=== PATIENT | female | born 1970 | race Caucasian/White ===

== ENCOUNTER 2016-09-15 14:10 | Emergency (ER) | payer MEDICAID ==
[~2016-09-15] VITALS: Ht 172.7 cm; Wt 49.9 kg
[~2016-09-15 14:10] MED LIST: ALBUTEROL2.5 MG/NEB INH; AMOXICOT500 MG PO; AMOXIL500 MG PO; ANTIBIOTIC OR; ANUSOL-HC25 M1 TP; APAP/BUTALBITAL1 TA1; APAP/BUTALBITAL1 TA1 PO; AVELOX400 MG PO; AVPAK AZITHROM250 MG PO; AZITHROMYCIN250 MG PO; BACLOFEN 10MG T10 MG PO; BACTRIM DS 8001 TAB PO; BENTYL GENERIC10 MG PO; BENTYL10 M1 PO; BENTYL10 MG PO; BENTYL20 MG PO; BUPROPION HCL150 M2 PO; CEFUROXIME AXE250 MG PO; CIMZIA200 MG/ML SC; CIPRO 250MG TA250 MG; CIPRO 500MG TA500 MG PO; DARVOCET-N 1001 EACH PO; FIORICET 325 MG1 TAB; FIORICET 325 MG1 TAB PO; FIORINAL #3 CA1 EACH PO; FLAGYL 500MG.500 MG PO; FLAGYL250 MG; FLAGYL250 MG PO; FLAGYL500 MG PO; FLEXERIL10 M1 PO; FLEXERIL10 MG PO; FLOMAX 0.4MG C0.4 MG PO; HUMIRA40 MG/0.1 SC; HYDROCODONE-APA1 TA1 PO; HYDROCODONE/ACE1 TA5 PO; HYDROCODONE1 TABLET PO; KEFLEX 500MG.500 MG PO; LEVAQUIN 750 M750 MG PO; LEVOFLOXACIN 7750 M1 PO; LOPERAMIDE2 M2 PO; LORTAB 5/500 501 TAB PO; MACROBID 100MG100 MG PO; MEDROL 4MG. DOSE4 MG PO; MONODOX100 MG PO; NAPROSYN500 M1 PO; NAPROXEN SODIU500 MG PO; NARATRIPTAN2.5 MG PO; NICOTINE T14 MG/24 H TD; NICOTINE21 MG/24 H TD; NIX CREAM R60 ML/BOT EX; NOMEDS *; NOMEDS XX; PERCOCET 5/3251 EACH PO; PERMETHRIN60 ML TP; PHENERGAN 25MG.25 M1 PO; PHENERGAN 25MG.25 MG PR; PHENERGAN25 M3 PO; PREDNISONE 20MG20 MG PO; PREDNISONE 5MG.5 MG; PREDNISONE20 MG PO; PREDNISONE5 MG; PROMETHAZINE D118 ML PO; PROMETHAZINE HC25 M1 PO; PROVENTIL0.09 MG/AC IH; ROBAXIN-750750 MG PO; ROBITUSSIN DM120 ML PO; SEPTRA DS 800 M1 TAB PO; TESSALON PERLE100 M1 PO; TESSALON PERLE100 MG PO; TIZANIDINE HCL 44 MG; TIZANIDINE HCL 44 MG NG; TRAMADOL 50MG T50 MG PO; TYLENOL ES500 M1 PO; TYLENOL W/CODEI1 TAB PO; ULTRAM 50 MG TA50 MG PO; ULTRAM50 MG PO; VIBRAMYCIN 100100 MG PO; VICODIN 5/500 T1 TAB PO; ZANAFLEX4 MG NG; ZANTAC 150MG T150 MG PO; ZITHROMAX Z PA250 MG PO; ZITHROMAX Z-PA250 M2 PO; ZOFRAN 8MG TABLE8 MG PO; ZOFRAN ODT4 MG PO; ZOFRAN ODT8 MG; ZOFRAN4 MG PO; ZOLOFT100 MG PO; [UNRECOGNIZED DRUG - REMARK]
[2016-09-15] MEDS ORDERED: DIAZEPAM2 MG PO (14:28)
[2016-09-15] MEDS ORDERED: METHOCARBAMOL500 MG PO (14:29)
--- NOTE | 2016-09-15 14:31 | Emergency Room Report ---
History of Present Illness Time Seen by MD Smith Presenting Problem in Triage Pt arrived:Walked Presenting Problem:hx of scoliosis, taking PT and cx for pain clinic. 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 N Clinical Suspician of Infection? N Mental Status: 1 - Regular (Normal Baseline) Sepsis Risk:Low Sepsis Risk Have you (or family members/close friends) recently traveled outside the [place]? N If Yes, where/when: Have you had exposure to infectious disease within the past month? N TB? Other? Specify: Source patient, RN notes reviewed Exam Limitations no limitations Comment Pt has a long history of Thoracic Scoliosis but has never had surgery. She has an appt for PT starting September 19 and the only thing she takes now is Robaxin and Valium. She has tried some antiinflammatories but they do not seem to help much. She has no arm pain but pain in her spine from her neck to her lumbar area Cardiac Chest Pain Chest pain indicative of cardiac No ALLERGIES Coded Allergies: naratriptan (SEVERE CHEST PAIN/TIGHTNESS (ALMOST HAD A HEART ATTACK) 08/09/15) Home Medications Active Scripts Albuterol (Proventil Inhaler) 1 PUFF IH Q6HP PRN SHORTNESS OF AIR #1 INH Prov: 10/10/14 Reported Medications DICYCLOMINE HCL (Bentyl) 10 MG PO DAILY Diazepam (Diazepam 2MG) 2 MG PO Q8H METHOCARBAMOL (Methocarbamol) 500 MG PO BID History Medical History General CAD? No Angina: No [place]: No Hypertension? No Hyperlipidemia? No CHF? No DVT? No PE? No COPD? Yes Asthma? No Anemia? No GERD? No Gastric ulcers? No GI Bleed? No Hernia? Yes Thyroid Problems? No Hypothyroidism? No CVA? No Seizures? No Diabetes? No Insulin Dependent: No Insulin Pump: No Home FSBS? No Renal Insuffiency? No End Stage Renal Disease? No UTI? Yes Stones? No BPH? No GB Disease: No Nephritic Syndrome? No Asplenia? No Hepatitis? No Sickle Cell Disease? No Arthritis? No Migraines? Yes Cataracts? No Glaucoma? No MRSA? Yes HIV? No TB? No Anxiety? No Depression? Yes Cancer? No More? Yes Additional hx: CROHNS Immunization Hx Ped.Immunizations UTD Yes DT/Tetanus > 10 Years Ago Flu 5534-0218 Flu Season Pneumonia 02/23/14 Surgical Hx Previous Surgery?Y HYSTERECTOMY X 2 EXP LAP X 2 COLON RESECTION UMBILICAL HERNIA REPAIR EPIGASTRIC HERNIA REPAIR X 2. 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 Hx LMP menopause Family History Family Hx Diabetes No CAD No Hypertension No Hyperlipidemia No Cancer Yes TB No Social History Smoking Hx Smoker: Current Every Day Smoker Tobacco: Yes Type Cigarettes Packs/day < 1 Pack Alcohol Alcohol: No Review of Systems All Other Systems Reviewed and Negative Constitutional see HPI Musculoskeletal see HPI Physical Exam Vital Signs Vital Signs Date Time Temp Pulse Resp B/P Pulse O2 O2 Flow FiO2 Ox Delivery Rate 09/15 1420 99.0 118 18 118/83 96 General Appearance normal appearance, WD/WN, no apparent distress Neck supple, She has a marked kyphosis in the thorax and that is where her scoliosis is too Respiratory Status No: respiratory distress. Lung Sounds bilateral: normal breath sounds. Cardiovascular normal exam, regular rate/rhythm Neurologic alert, information assoc II-XII nml as tested, no motor/sensory deficits Medical Decision Making LABS/Meds/Orders Pt receiving controlled substance in ED? No Departure Departure Time of Disposition 1452 Disposition DC Home or Self Care(routine) Clinical Impression Primary Impression: Thoracic scoliosis Qualifiers: Scoliosis type: unspecified scoliosis Qualified Code: M41.9 - Scoliosis, unspecified Secondary Impressions: Cervicalgia Lumbar sprain Qualifiers: Encounter type: initial encounter Qualified Code: S33.5XXA - Sprain of ligaments of lumbar spine, initial encounter Condition STABLE Additional Instructions Advised to use Ice and heat and continue with whichever helps the most. Followup for PT and with Pain clinic as scheduled Discharge Counseling Counseled pt/family regarding diagnosis, medications/RX, home care, follow up needs Prescriptions Current Visit Scripts DICLOFENAC SODIUM (Diclofenac 50MG) 50 MG PO BID #60 TAB ED Critical Care Critical Care No If Critical Care minutes are documented, the time involved in the performance of seperately reportable procedures was not counted toward critical care time documented. I directly delivered medical care to this critically ill and/or injured patient. Timely evaluation and treatment was necessary to address the significant organ system(s) dysfunction present in this patient. at [id number]
--- NOTE | 2016-09-15 14:31 | Emergency Room Report ---
History of Present Illness Time Seen by MD Smith Presenting Problem in Triage Pt arrived:Walked Presenting Problem:hx of scoliosis, taking PT and cx for pain clinic. 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 N Clinical Suspician of Infection? N Mental Status: 1 - Regular (Normal Baseline) Sepsis Risk:Low Sepsis Risk Have you (or family members/close friends) recently traveled outside the [place]? N If Yes, where/when: Have you had exposure to infectious disease within the past month? N TB? Other? Specify: Source patient, RN notes reviewed Exam Limitations no limitations Comment Pt has a long history of Thoracic Scoliosis but has never had surgery. She has an appt for PT starting September 19 and the only thing she takes now is Robaxin and Valium. She has tried some antiinflammatories but they do not seem to help much. She has no arm pain but pain in her spine from her neck to her lumbar area Cardiac Chest Pain Chest pain indicative of cardiac No ALLERGIES Coded Allergies: naratriptan (SEVERE CHEST PAIN/TIGHTNESS (ALMOST HAD A HEART ATTACK) 08/09/15) Home Medications Active Scripts Albuterol (Proventil Inhaler) 1 PUFF IH Q6HP PRN SHORTNESS OF AIR #1 INH Prov: 10/10/14 Reported Medications DICYCLOMINE HCL (Bentyl) 10 MG PO DAILY Diazepam (Diazepam 2MG) 2 MG PO Q8H METHOCARBAMOL (Methocarbamol) 500 MG PO BID History Medical History General CAD? No Angina: No [place]: No Hypertension? No Hyperlipidemia? No CHF? No DVT? No PE? No COPD? Yes Asthma? No Anemia? No GERD? No Gastric ulcers? No GI Bleed? No Hernia? Yes Thyroid Problems? No Hypothyroidism? No CVA? No Seizures? No Diabetes? No Insulin Dependent: No Insulin Pump: No Home FSBS? No Renal Insuffiency? No End Stage Renal Disease? No UTI? Yes Stones? No BPH? No GB Disease: No Nephritic Syndrome? No Asplenia? No Hepatitis? No Sickle Cell Disease? No Arthritis? No Migraines? Yes Cataracts? No Glaucoma? No MRSA? Yes HIV? No TB? No Anxiety? No Depression? Yes Cancer? No More? Yes Additional hx: CROHNS Immunization Hx Ped.Immunizations UTD Yes DT/Tetanus > 10 Years Ago Flu [id number] Flu Season Pneumonia 02/23/14 Surgical Hx Previous Surgery?Y HYSTERECTOMY X 2 EXP LAP X 2 COLON RESECTION UMBILICAL HERNIA REPAIR EPIGASTRIC HERNIA REPAIR X 2. 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 Hx LMP menopause Family History Family Hx Diabetes No CAD No Hypertension No Hyperlipidemia No Cancer Yes TB No Social History Smoking Hx Smoker: Current Every Day Smoker Tobacco: Yes Type Cigarettes Packs/day < 1 Pack Alcohol Alcohol: No Review of Systems All Other Systems Reviewed and Negative Constitutional see HPI Musculoskeletal see HPI Physical Exam Vital Signs Vital Signs Date Time Temp Pulse Resp B/P Pulse O2 O2 Flow FiO2 Ox Delivery Rate 09/15 1420 99.0 118 18 118/83 96 General Appearance normal appearance, WD/WN, no apparent distress Neck supple, She has a marked kyphosis in the thorax and that is where her scoliosis is too Respiratory Status No: respiratory distress. Lung Sounds bilateral: normal breath sounds. 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 No Departure Departure Time of Disposition 1452 Disposition DC Home or Self Care(routine) Clinical Impression Primary Impression: Thoracic scoliosis Qualifiers: Scoliosis type: unspecified scoliosis Qualified Code: M41.9 - Scoliosis, unspecified Secondary Impressions: Cervicalgia Lumbar sprain Qualifiers: Encounter type: initial encounter Qualified Code: S33.5XXA - Sprain of ligaments of lumbar spine, initial encounter Condition STABLE Additional Instructions Advised to use Ice and heat and continue with whichever helps the most. Followup for PT and with Pain clinic as scheduled Discharge Counseling Counseled pt/family regarding diagnosis, medications/RX, home care, follow up needs Prescriptions Current Visit Scripts DICLOFENAC SODIUM (Diclofenac 50MG) 50 MG PO BID #60 TAB ED Critical Care Critical Care No If Critical Care minutes are documented, the time involved in the performance of seperately reportable procedures was not counted toward critical care time documented. I directly delivered medical care to this critically ill and/or injured patient. Timely evaluation and treatment was necessary to address the significant organ system(s) dysfunction present in this patient. at [id number]
[2016-09-15] MEDS ORDERED: DICLOFENAC 50MG50 MG PO (14:54)
--- OUTSIDE RECORDS SUMMARY | 2016-09-15 15:10 | External Medical Summary Rpt ---
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 Person Name Role Phone ADERS, ADERS Unavailable Unavailable ALFARIS MOH, ALFARIS Unavailable Unavailable MOH ALFARIS MOH, ALFARIS Unavailable Unavailable Falguni GROSSMAN, Unavailable Unavailable Falguni [facility] Unavailable Unavailable PRACTICE, [facility] ARNOLD LEE ANN, ARNOLD Unavailable Unavailable LEE ANN ARNOLD LEE ANN, ARNOLD Unavailable Unavailable LEE ANN MAIRA FRANKLIN W, Unavailable Unavailable RIGOBERTO, MAIRA W ANDERS SU Unavailable Unavailable BRO DIALLO TER, DIALLO Unavailable Unavailable TER BESHAQ FLORES BESHAQ Unavailable Unavailable SANDRA SUSHILA L, SUSHILA L Unavailable Unavailable SUSHILA L, SUSHILA L Unavailable Unavailable BESSON REJI, BESSON Unavailable Unavailable REJI BESSON REJI, BESSON Unavailable Unavailable REJI HANSEN ALL, HANSEN ALL Unavailable Unavailable YARA ANT, YARA ANT Unavailable Unavailable YARA CALVIN, Unavailable Unavailable YARA CALVIN BOTTIGGI ANT, Unavailable Unavailable BOTTIGGI ANT GARFIELD III, GARFIELD Unavailable Unavailable III BRANDSER, BRANDSER Unavailable Unavailable DODSONSARAH Owen A, Unavailable Unavailable DODSONSARAH Owen [facility] Unavailable Unavailable SERVICE, [facility] Unavailable Unavailable SERVICE, [facility] JUDAH SHELTON BUCK, Unavailable Unavailable JUDAH MIGUEL, Unavailable Unavailable MYRIAM SPRAGUE, Unavailable Unavailable JIAN SPRAGUE, Unavailable Unavailable JIAN CASH, MARKEL Unavailable Unavailable SARAH VELÁZQUEZ, Unavailable Unavailable SARAH WILCOX DEREK J, Unavailable Unavailable GLO DELCID [facility] Unavailable [facility]available [facility]available [facility] Unavailable Unavailable PHYSICIANS, [facility] DIEGO CORTEZ Unavailable Unavailable TERESA ROM, Unavailable Unavailable TERESA ROM TERESA ROM, Unavailable Unavailable TERESA ROM CASEY MOORE, Unavailable Unavailable CASEY MOORE PA-C Unavailable Unavailable SHAUN DUVAL PA-C MUKUND BERONICA KERLINE, STEPHEN Unavailable Unavailable ALLISON KERLINE SALAZAR NEAL, SALAZAR NEAL Unavailable Unavailable DONOVITZ JAM, Unavailable Unavailable DONOVITZ JAM DONOVITZ JAM, Unavailable Unavailable DONOVITZ JAM [facility] [place]available [place] [facility] [place] FALLUVALERIE MULLER M, Unavailable Unavailable AMELIE NEZAKvng M FAVIER, FAVIER Unavailable Unavailable FERTIKH, FERTIKH Unavailable Unavailable OAKLEYJUDAH VINCENT P, Unavailable Unavailable OAKLEY, JUDAH P JR STANFORD MULTANI, Unavailable Unavailable JR STANF[facility] MULTANI YEIMI ISAAC, YEIMI Unavailable Unavailable ISAAC YEIMI ISAAC, YEIMI Unavailable Unavailable ISAAC SARAH ESCUDERO S, Unavailable Unavailable SARAH ESCUDERO JOHN W, Unavailable Unavailable KP [facility] Unavailable Unavailable LEON ISAAC, LEON ISAAC Unavailable Unavailable LEON ISAAC, LEON ISAAC Unavailable Unavailable DORMAN CELESTINE, DORMAN CELESTINE Unavailable Unavailable CESAR, LUIS G, Unavailable Unavailable CESAR, LUIS G [facility] Unavailable Unavailable CENTER, [facility] Unavailable Unavailable CENTER, [facility] Unavailable Unavailable INC, [facility]available Unavailable Hospital, [facility] Unavailable Unavailable HOSPITAL P, [facility] P HEEB, HEEB Unavailable Unavailable GARCIA RA, GARCIA RA Unavailable Unavailable GARCIA RA, GARCIA RA Unavailable Unavailable [facility], Unavailable Unavailable [facility], Unavailable Unavailable [facility] YOUNGBLOOD MARY, YOUNGBLOOD MARY Unavailable Unavailable KIT IMT, KIT Unavailable Unavailable IMT [facility] Unavailable Unavailable IM[facility]ING [facility], [facility] KLEIMEYER, KLEIMEYER Unavailable Unavailable KLEIMEYER KERLINE, Unavailable Unavailable KLEIMEYER KERLINE KONDURI, KONDURI Unavailable Unavailable TYRELL, TYRELL Unavailable Unavailable FAN-APOLINAR REJI, Unavailable Unavailable FAN-APOLINAR REJI [facility] TASHIA JR DWI, TASHIA Unavailable Unavailable JR DWI SIA, SIA Unavailable Unavailable BORIS KETAN, BORIS Unavailable Unavailable KETAN [facility] Unavailable Unavailable SERVICES, [facility] UZMA HERNANDEZ, UZMA Unavailable Unavailable MARY MCKEMIE JR JUAN ANTONIO, Unavailable Unavailable MCKEMIE JR JUAN ANTONIO MCKEMIE JR JUAN ANTONIO, Unavailable Unavailable MCKEMIE JR JUAN ANTONIO MEDEYINLO, MEDEYINLO Unavailable Unavailable HARLEENSHELDON CARNES P, Unavailable Unavailable HARLEEN, SHELDON P REY GAN, Unavailable Unavailable REY GAN MORGAN Unavailable Unavailable NIRUJOGI, NIRUJOGI Unavailable Unavailable NIRUJOGI GELACIO, Unavailable Unavailable NIRUJOGI GELACIO KP EL, Unavailable Unavailable KP EL MORRISON JUAN ANTONIO, MORRISON Unavailable Unavailable JUAN ANTONIO MORRISON JUAN ANTONIO, MORRISON Unavailable Unavailable JUAN ANTONIO [facility] Unavailable Un[facility], Unavailable Unavailable PLL[facility], [facility] Unavailable Unavailable LAB, [facility] PAWELIEZER GUIDO D, Unavailable Unavailable PAWSAT GUIDO D CHASE, CHASE Unavailable Unavailable MCDANIELS, MCDANIELS Unavailable Unavailable [facility] Unavailable Unavailable [facility], [facility] Unavailable Unavailable RENUSCH SAMM, RENUSCH Unavailable Unavailable SAMM [id number], Unavailable Unavailable [id number] Unavailable Unavailable [id number] [address] [id number], [facility] [id number] [address] [id number] SADEK MOH, SADEK MOH Unavailable Unavailable SADEK MOH, SADEK MOH Unavailable Unavailable JESSICA, JESSICA Unavailable Unavailable JESSICA ZAH, JESSICA ZAH Unavailable Unavailable JIMENEZ, JIMENEZ Unavailable Unavailable SCHULSTAD BOONE, Unavailable Unavailable SCHULSTAD BOONE [facility], Unavailable Unavailable SCHULSTAD BOONE SCHULSTAD, CALEB, Unavailable Unavailable SCHULSTAD, CALEB SCHUSSLER, SCHUSSLER Unavailable Unavailable SCIFRES ANG, SCIFRES Unavailable Unavailable ANG SCIFRES ANG, SCIFRES Unavailable Unavailable ANG SMALL, KP T, SMALL, Unavailable Unavailable KP T SULLIVAN SHA, SULLIVAN SHA Unavailable Unavailable SOKAN BAB, SOKAN BAB Unavailable Unavailable SOKAN, MILENA O, Unavailable Unavailable SOKAN, MILENA O [facility] Unavailable Unavailable [facility], [facility] Un[facility], [facility] Unavailable Unavailable [facility]available Unavailable [facility], Unavailable Unavailable [facility] Unavailable Unavailable 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 , [facility] 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 [facility] Unavailable Unavailable PHYSICIANS, [facility] WILFRED COOPER, Unavailable Unavailable WILFRED COOPER SETH T, Unavailable Unavailable ADRIAN RYAN WILLIAM F, Unavailable Unavailable REY GERMAN SULLIVAN Unavailable Unavailable JYOTI SANTOSSON Unavailable Unavailable [facility], Unavailable Unavailable [facility] VORKPOR NEAL, VORKPOR Unavailable Unavailable NEAL VORKPOR NEAL, VORKPOR Unavailable Unavailable NEAL [id number], Unavailable Unavailable [facility] WALKER FOR, WALKER Unavailable Unavailable FOR WEHRMAN III JUAN ANTONIO, Unavailable Unavailable WEHRMAN III JUAN ANTONIO WEHRMAN IIIREY, Unavailable Unavailable WEHRMAN IIIREY WELLS KIM Unavailable Unavailable MARLI RAPP, MARLI RAPP Unavailable Unavailable MARLI HORNE, MARLI HORNE Unavailable Unavailable PRIYANKA CARRION, Unavailable Unavailable PRIYANKA CARRION ROBERT C, Unavailable Unavailable AMANDA [facility], Unavailable [facility], Unavailable [facility]available [facility] YOUSEF, YOUSEF Unavailable Unavailable CHRISTIAN GONZALES Unavailable Unavailable Purpose Continuity of Care Document - 03-19-2007 through 2016 Problems Code Diagnosis DOS Provider Status G89.18 Other acute 08-30-2016 postprocedu ral pain J44.9 Chronic 08-30-2016 obstructive pulmonary disease, unspecified R10.9 Unspecified 08-30-2016 abdominal pain Z09 ENC F/U 08-17-2016 ST EXAM AFTR [facility] CMPL TX OT PHYSICIANS SHERRY PAINTER NEOPLJEAN PIERRE Z681 BODY MASS 08-17-2016 ST INDEX BMI [facility] 19 OR LESS PHYSICIANS ADULT K5080 CROHNS 08-16-2016 [facility] SMALL & PHYSICIANS LARGE INTESTINE W/O COMP E46 UNSPECIFIED 08-14-2016 [facility] PROTEIN-DAVID PHYSICIANS JOYCE YOUNGER N N390 URINARY 08-14-2016 [facility] TRACT [facility] INFECTION PHYSICIANS SITE NOT SPECIFIED R0781 PLEURODYNIA 08-14-2016 [facility] R0789 OTHER CHEST 08-14-2016 [facility] PAIN [facility]ERGENCY PHYSICIANS R079 CHEST PAIN 08-14-2016 [facility] UNSPECIFIED [facility]GENCY PHYSICIANS R109 UNSPECIFIED 08-14-2016 [facility]OM[facility] PAIN [facility] R1084 GENERALIZED 08-06-2016 [facility] ABDOMINAL EMERGENCY PAIN PHYSICIANS R1013 EPIGASTRIC 07-19-2016 [facility] R110 NAUSEA 07-19-2016 [facility] EMERGENCY PHYSICIANS I081IHW INFECTION 07-01-2016 [facility] FOLLOWING [facility] PROCEDURE [facility] INITIAL ENCOUNTER J432 CENTRILOBUL 06-12-2016 AR [facility] EMPHYSEMA PHYSICIANS R918 OTHER 06-12-2016 NONSPECIFIC [facility] ABNORMAL PHYSICIANS FINDING OF LUNG FIELD J449 CHRONIC 06-06-2016 [facility] DISEASE UNS J441 CHRONIC 06-01-2016 OBSTRUCTIVE [facility] PULMONARY PHYSICIANS DZ W/EXACERBAT ION J9601 ACUTE 06-01-2016 RESPIRATORY [facility] FAILURE PHYSICIANS WITH HYPOXIA K432 INCISIONAL 06-01-2016 HERNIA [facility] WITHOUT PHYSICIANS OBSTRUCTION /GANGRENE J9690 RESP FAIL 05-30-2016 [facility] UNS UNS ASSOC[facility]ATES WHETHER [facility] W/HYPOXIA/H YPERCAPNIA R0602 SHORTNESS 05-26-2016 [facility] OF BREATH ASSOCIATES [facility] R0902 HYPOXEMIA 05-26-2016 [facility] G8918 OTHER ACUTE 05-25-2016 [facility] POSTPROCEDU PRACTICE RAL PAIN Z12366 MIGRAINE 04-04-2016 ST UNS NOT [facility] INTRACT W/O FT KARINE STATUS MIGRAINOSUS K209 ESOPHAGITIS 04-04-2016 ST [facility] UNSPECIFIED PHYSICIANS K449 DIAPHRAGMAT 04-04-2016 ST IC HERNIA [facility] W/O PHYSICIANS OBSTRUCTION OR GANGRENE K625 HEMORRHAGE 04-04-2016 ST OF ANUS AND [facility] RECTUM PHYSICIANS K640 FIRST 04-04-2016 ST DEGREE [facility] HEMORRHOIDS MED CTR R197 DIARRHEA 04-04-2016 ST UNSPECIFIED [facility] PHYSICIANS Z8719 PERSONAL 04-04-2016 ST HISTORY [facility] OTHER PHYSICIANS DISEASES DIGESTIVE SYSTEM 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 04-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 H54831 MIGRAINE 02-25-2016 [facility] W/O AURA EM[facility] NOT INTRACT PHYSICIANS W/O STAT MIGRAIN K469 UNS 02-25-2016 [facility] ABDOMINAL EMERGENCY HERNIA W/O PHYSICIANS OBSTRUCTION OR GANGRENE G60826 ENCOUNTER 02-22-2016 ST RECORD KEEPER EXAM [facility] GENERAL RTN PHYSICIANS W/O ABNORMAL FIND K5090 CROHNS 01-25-2016 ST DISEASE UNS [facility] WITHOUT PHYSICIANS COMPLICATIO NS K5900 CONSTIPATIO 01-11-2016 [facility] N [facility] UNSPECIFIED PHYSICIANS R1031 RIGHT LOWER 01-11-2016 [facility] PAIN [facility] J209 ACUTE 11-18-2015 [facility] BRONCHITIS PHYSICIANS, UNSPECIFIED PLLC R05 COUGH 11-18-2015 [facility] Z720 TOBACCO USE 11-18-2015 [facility] J40 BRONCHITIS 10-28-2015 [facility] NOT PHYSICIAN SPECIFIED GROUP ACUTE OR CHRONIC U25013 CROHNS 09-15-2015 [facility] DISEASE UNS [facility] W/OTHER INC COMPLICATIO N R1110 VOMITING 09-15-2015 [facility] UNSPECIFIED PHYSICIANS, PLLC M5430 SCIATICA 09-01-2015 [facility] UNSPECIFIED [facility] SIDE INC M545 LOW BACK 09-01-2015 [facility] R51 HEADACHE 08-29-2015 [facility] PHYSICIANS GROUP M5441 LUMBAGO 08-04-2015 [facility] WITH PHYSICIANS, SCIATICA PLLC RIGHT SIDE R42 DIZZINESS 07-29-2015 [facility] GIDDINESS SERVICE K5000 CROHNS 06-14-2015 [facility] DISEASE [facility] SMALL INC INTESTINE W/O COMP G8929 OTHER 04-30-2015 [facility] CHRONIC [facility] PAIN INC R1030 LOWER 04-30-2015 [facility] ABDOMINAL [facility] PAIN INC UNSPECIFIED R1032 LEFT LOWER 04-30-2015 [facility] J029 ACUTE 04-04-2015 [facility] PHARYNGITIS PHYSICIANS, PLLC UNSPECIFIED E538 DEFICIENCY 02-23-2015 [place] [facility] OTHER SERV SPECIFIED B FOUNDATION GROUP VITAMINS M542 CERVICALGIA 02-21-2015 [facility] G306OPO STRAIN 02-21-2015 [facility] MUSCLE FASC PHYSICIANS, & TENDON PLLC NECK LEVL INIT ENC J329 CHRONIC 01-31-2015 [facility] SINUSITIS PHYSICIANS UNSPECIFIED GROUP F49178I STRN UNS 01-19-2015 [facility] M&T SHLDR PHYSICIANS, UP ARM LEVL PLLC LT ARM INIT ENC 496 CHRONIC 12-01-2014 [facility] NEC 490 BRONCHITIS 11-30-2014 [facility] NOT PHYSICIANS SPECIFIED GROUP ACUTE OR CHRONIC 23517 WHEEZING 11-30-2014 [facility] PHYSICIANS GROUP 4659 ACUTE URIS 11-24-2014 [facility] OF PHYSICIANS, UNSPECIFIED [facility] SITE 7862 COUGH 11-24-2014 [facility] 68933 CHEST PAIN 11-24-2014 [facility] UNSPECIFIED [facility] 7869 OTH 11-24-2014 [facility] SYMPTOMS MEDICAL INVOLVING IMAGING ASS RESPIRATORY SYSTEM&CHES T 5559 REGIONAL 11-08-2014 [facility] ENTERITIS PHYSICIANS OF GROUP UNSPECIFIED SITE 4553 EXTERNAL 11-03-2014 [facility] HEMORRHOIDS SERV WITHOUT FOUNDATION MENTION COMP 03395 ATROPHIC 11-03-2014 [facility] WITHOUT MENTION OF HEMORRHAGE 63652 ULCERATION 11-03-2014 [facility] OF MEM [facility]OS[facility] INTESTINE INC 86905 DIARRHEA 11-03-2014 [facility] 83294 ABDOMINAL 11-03-2014 [facility] PAIN, SERV UNSPECIFIED FOUNDATION SITE 65358 ABDOMINAL 11-03-2014 [facility] PAIN, MEM [facility]OS[facility] GENERALIZED INC 18689 OBSTRUCTIVE 10-10-2014 [facility] CHRONIC BRONCHITIS WITHOUT EXACERBAT 7840 HEADACHE 10-05-2014 SUSHILA Abdalla 2409 GOITER, 08-31-2014 [facility] UNSPECIFIED PHYSICIANS GROUP 49354 ABDOMINAL 08-17-2014 YEIMI ISAAC PAIN OTHER SPECIFIED SITE 2662 OTHER 08-16-2014 [facility] B-COMPLEX SERV DEFICIENCIE FOUNDATION S 2689 UNSPECIFIED 08-16-2014 [facility] VITAMIN D SERV DEFICIENCY FOUNDATION 5550 REGIONAL 08-16-2014 [facility] ENTERITIS [facility] OF SMALL INC INTESTINE 5552 RGN 08-16-2014 [facility] ENTERITIS SERV SMALL FOUNDATION INTESTINE W/LG INTESTINE 59925 HEMATURIA 07-07-2014 [facility] UNSPECIFIED [facility]ING ASS 3674 PRESBYOPIA 06-25-2014 SCIFRES ANG 2859 UNSPECIFIED 04-13-2014 [facility] ANEMIA PHYSICIANS GROUP 16625 OTHER 04-13-2014 [facility] MALAISE AND PHYSICIANS FATIGUE GROUP 64859 OTHER 03-08-2014 [facility] NONSPECIFIC MEDICAL ABNORMAL IMAGING ASS FINDING OF LUNG FIELD 1320 PEDICULUS 02-21-2014 [facility] CAPITIS PHYSICIANS GROUP 486 PNEUMONIA, 02-21-2014 [facility] ORGANISM PHYSICIANS UNSPECIFIED GROUP V5869 LONG-TERM 02-21-2014 [facility] (CURRENT) [facility] USE OF HOSPITAL P OTHER MEDICATIONS 02452 SHORTNESS 02-20-2014 [place] [facility] 09751 MIGRAINE 02-12-2014 [facility] UNSP W/O [facility] INTRACT W/O HOSPITAL P STATUS MIGRAINOSUS 66117 UNSPECIFIED 01-23-2014 VORANIRUDH DE JESUS CONSTIPATIO N 05863 ABDOMINAL 01-23-2014 VORANIRUDH DE JESUS PAIN, LEFT LOWER QUADRANT 47108 NAUSEA 01-11-2014 [facility] ALONE [facility] 2768 HYPOPOTASSE 12-15-2013 [facility] HOSP INC 85658 ABDOMINAL 12-10-2013 VORANIRUDH DE JESUS PAIN RIGHT LOWER QUADRANT 5589 OTH&UNSPEC 12-06-2013 VORANIRUDH DE JESUS NONINFECTIO US GASTROENTER ITIS&COLITI S 94153 VOMITING 12-06-2013 VORKPALEJANDRO DE JESUS ALONE 7242 LUMBAGO 11-10-2013 [facility] NEAL 7245 UNSPECIFIED 11-10-2013 [facility] 52831 OTHER 11-10-2013 [facility]ES [facility] 17856 CONTUSION 10-29-2013 [facility] OF BACK E8888 OTHER FALL 10-29-2013 [facility] E8889 UNSPECIFIED 10-29-2013 [facility] 39482 UNSPEC 09-20-2013 [facility] VENTRAL KAYA W/O MENTION OBST/GANGRE N 16940 DEHYDRATION 08-25-2013 [facility] 8471 THORACIC 08-03-2013 [facility] N EMERGENCY STRAIN PHYS E8859 FALL FROM 08-03-2013 [facility] OTHER N EMERGENCY SLIPPING PHYS TRIPPING OR STUMBLING E9271 OVEREXERTIO 07-17-2013 [facility] N FROM N EMERGENCY PROLONGED PHYS STATIC POSITION 29518 VARIANTS 04-27-2013 ARNOLD LEE ANN MIGRAINE NEC INTRACT MIGRAINE W/O SM 1330 SCABIES 04-05-2013 MARLI RAPP V4589 OTHER 03-21-2013 [facility] POSTSURGICA ROM L STATUS OTHER 21480 SPASM OF 02-24-2013 ARNOLD LEE ANN MUSCLE 62389 OTHER ACUTE 01-02-2013 MAR[facility] RAPP PAIN 9654 POISONING 10-11-2012 JYOTI CHARLES BY AROMATIC JUAN ANTONIO ANALGESICS NEC E8490 PLACE OF 10-11-2012 MCCLAUSE JR OCCURRENCE, JUAN ANTONIO HOME E8504 ACCIDENTAL 10-11-2012 MCADMIE JR POISONING JUAN ANTONIO BY AROMATIC ANALGESICS NEC 29491 MECH COMP 08-22-2012 [facility] DUE OTH CELESTINE IMPLANT&INT ERNAL DEVICE NEC 05203 INF&INFLAM 08-22-2012 [facility] INTRL PROSTH DEVC IMPL&GFT 50660 OTH COMPS 08-22-2012 MORRISON JUAN ANTONIO DUE OT INTRL PROSTH DEVICE IMPL&GFT V8801 ACQUIRED 08-22-2012 [facility] BOTH CERVIX AND UTERUS 6822 CELLULITIS 07-23-2012 [facility] AND ABSCESS MEM [facility]OS[facility] OF TRUNK INC 97265 DISRUPTION 07-23-2012 DONOVITZ OF EXTERNAL JAM OPERATION SURGICAL WOUND 95286 OTHER 07-23-2012 [facility] POSTOPERATI MEM [facility]OS[facility] VE INC INFECTION NEC V5831 ENCOUNTER 07-12-2012 DONOV[facility] CHANGE/MAKAYLA JAM ANGELA SURGICAL WOUND DRESSING 7804 DIZZINESS 06-30-2012 [facility] AND MEM [facility]OS[facility] GIDDINESS INC 61046 NAUSEA WITH 06-30-2012 [facility] VOMITING MEM [facility]OS[facility] INC 5119 UNSPECIFIED 04-10-2012 [facility] PLEURAL ROM EFFUSION 5180 PULMONARY 04-08-2012 [facility] COLLAPSE ROM 5183 PULMONARY 04-08-2012 [facility] EOSINOPHILI ROM A 5199 UNSPECIFIED 04-07-2012 [facility] DISEASE OF ROM RESPIRATORY SYSTEM V550 ATTENTION 04-07-2012 [facility] TO ROM TRACHEOSTOM Y 57724 OTHER 04-04-2012 [facility] SPECIFIED BOONE INTESTINAL OBSTRUCTION 5680 PERITONEAL 04-04-2012 LEON ISAAC ADHESIONS 93134 OTHER 04-04-2012 [facility] RESPIRATORY MEM HOS[facility] INC COMPLICATIO NS 5990 URINARY 02-08-2012 [facility] INFECTION SERVICES SITE NOT SPECIFIED 58176 REFLUX 10-31-2011 [facility] ESOPHAGITIS [facility] HOS[facility] INC 22946 UNS 10-31-2011 [facility] GASTRITIS&G MEM [facility]OS[facility] ASTRODUODIT INC IS W/O MENTION HEMORR 5533 DIAPHRAGMAT 10-31-2011 [facility] KAYA W/O MEM HOSP MENTION INC OBSTRUCTION /GANGREN 7291 UNSPECIFIED 10-29-2011 RAJISON REJI MYALGIA AND MYOSITIS 9779 POISONING 10-29-2011 [facility] UNSPECIFIED DRUG/MEDICI NAL SUBSTANCE V720 EXAMINATION 09-18-2011 GARCIA RA OF EYES AND VISION 3384 CHRONIC 05-18-2011 RIGOBERTO LEE ANN PAIN SYNDROME 01769 PAIN IN 04-05-2011 [facility] JOINT [facility] PELVIC INC REGION AND THIGH 77962 PAINFUL 04-05-2011 [facility] RESPIRATION [facility] INC 67516 UNSPECIFIED 12-15-2010 [facility] VIRAL [facility]ERGENCY INFECTION SERVICES IN CCE & UNS SITE 23785 LEUKOCYTOSI 12-15-2010 [facility] S [facility]ERGENCY UNSPECIFIED SERVICES 462 ACUTE 12-15-2010 [facility] PHARYNGITIS [facility] INC 68870 FEVER 12-15-2010 [facility] UNSPECIFIED [facility]OS[facility] INC 65502 FEVER 12-15-2010 [facility] PRESENTING EMERGENCY CONDITIONS SERVICES CLASSIFIED ELSEWHERE 7821 RASH AND 12-15-2010 [facility] OTHER EMERGENCY NONSPECIFIC SERVICES SKIN ERUPTION 4619 ACUTE 12-14-2010 RIGOBERTO NANCE SINUSITIS, UNSPECIFIED 6929 CONTACT 12-14-2010 RIGOBERTO NANCE DERMATITIS& OTHER ECZEMA DUE UNSPEC CAUSE 5110 PLEURISY 11-11-2010 [facility] WITHOUT EMERGENCY MENTION SERVICES EFFUS/CURRE NT TB 7955 NONSPECIFIC 11-08-2010 [facility] TO TEST FOR INC TUBERCULOSI S 99980 ABDOMINAL 10-12-2010 [place] PAIN RIGHT MEDICAL UPPER IMAGING ASS QUADRANT V0481 NEED 04-14-2010 [facility] VACCINATION &INOCULATIO N FLU 7243 SCIATICA 02-07-2010 [facility] 4660 ACUTE 11-08-2009 RIGOBERTO NANCE BRONCHITIS 8472 LUMBAR 10-13-2009 [facility] SPRAIN AND EMERGENCY STRAIN SERVICES 94665 UNSPECIFIED 08-25-2009 KERMIT FRANKLIN DISEASE 9243 CONTUSION 08-11-2009 LYDIA FRANKLIN 66062 CONTUSION 06-15-2009 [facility] OF FOOT EMERGENCY SERVICES ASSOCIATES E9505 ELDER&SLF-INF 03-13-2009 [facility] LICT POISN AMBULANCE UNS SERVICE RX/MEDICINA L SBSTNC 7231 CERVICALGIA 02-14-2009 [facility] HOSP INC 7241 PAIN IN 02-14-2009 [facility] THORACIC [facility] SPINE INC V571 OTHER 02-14-2009 [facility] THERAPY [facility] 7213 LUMBOSACRAL 01-17-2009 PHYSICIANS SERVICES SPONDYLOSIS 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 MYELOPATHY 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 4871 INFLUENZA 12-30-2008 RIGOBERTO WITH OTHER MAIRA Bernal RESPIRATORY MANIFESTATI ONS 5574 UNSPECIFIED 12-07-2008 RIG[facility]O ULCERATIVE MAIRA Bernal COLITIS 3829 UNSPECIFIED 09-25-2008 SHANICE FRANKLIN MEDIA 7244 THORACIC/SIA 09-03-2008 JODY EL KP NEURITIS/RA DICULITIS UNSPEC 7820 DISTURBANCE 09-03-2008 EL, OF SKIN KP SENSATION 2449 UNSPECIFIED 08-31-2008 [facility] HYPOTHYROID [facility] [place]M 28566 DIAB W/O 08-31-2008 [facility] COMP TYPE [facility] II/UNS NOT INC STATED UNCNTRL 3569 UNSPEC 08-31-2008 [facility] HEREDIT&IDI [facility] OPATHIC INC PERIPHERAL NEUROPATHY 4358 OTHER 08-31-2008 [facility] SPECIFIED [facility] TRANSIENT INC CEREBRAL ISCHEMIAS 4359 UNSPECIFIED 08-31-2008 [facility]YS[facility]IANS CEREBRAL GROUP ISCHEMIA 7802 SYNCOPE AND 08-27-2008 EL, COLLAPSE KP 4928 OTHER 08-25-2008 [facility] 22387 DIVERTICULI 07-22-2008 BOOM FRANKLIN OF MAIRA Bernal COLON 20121 SCOLIOSIS , 06-22-2008 [facility] IDIOPATHIC [facility] INC 42893 OTHER 06-16-2008 [facility] 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 V5882 ENCOUNTER 06-03-2008 [facility] [place] FITTING&ADJ RADIOLOGY NON-VASCULA R CATHETER NEC 5609 UNSPECIFIED 06-02-2008 [facility] OBSTRUCTION 1120 CANDIDIASIS 05-26-2008 RIGOBERTO OF MOUTH MAIRA Bernal 88082 ABDOMINAL 05-22-2008 [facility] 80478 UNSPECIFIED 04-28-2008 [facility] 5968 OTHER 04-27-2008 [facility] [place] SPECIFIED RADIOLOGY DISORDERS OF BLADDER 71301 OTHER 04-27-2008 [facility] SPEC[facility] RETENT[facility] OF URINE 84885 LOSS OF 01-13-2008 [facility] 93469 ABDOMINAL 01-08-2008 [facility], [facility]BULANCE PERIUMBILIC SERVICE [id number] PARALYTIC 11-02-2007 [place] [facility] 7011 ACQUIRED 09-19-2007 [facility], KERATODERMA GUIDO D 7030 INGROWING 09-19-2007 [facility], NAIL GUIDO D 72088 ENTHESOPATH 08-19-2007 Isabela [facility] Bernal UNSPECIFIED SITE 8470 NECK SPRAIN 04-22-2007 [facility] [id number] CONTUSION 04-22-2007 [place] [facility] [id number] UNARMED 04-22-2007 [place] [facility] 5551 REGIONAL 03-19-2007 [place] [facility] INTESTINE [id number] SPECIAL 03-19-2007 [facility] SCREENING ANESTH OF FOR THE MALIGNANT [place] NEOPLASMS COLON [phone] Postoperati [facility] E46 Unspecified protein-david orie malnutritio n G43.909 Migraine, unspecified , not intractable , without status migrainosus G89.29 Other chronic pain K43.2 Incisional hernia without obstruction or gangrene K43.9 Ventral hernia without obstruction or gangrene K59.00 Constipatio n, unspecified K62.5 Hemorrhage of anus and rectum N39.0 Urinary tract infection, site not specified R07.89 Other chest pain R10.30 Lower abdominal pain, unspecified R10.84 Generalized abdominal pain R11.0 Nausea R20.8 Other disturbance s of skin sensation R91.8 Other nonspecific abnormal finding of lung field Z09 Encounter for follow-up examination after completed treatment for conditions other than malignant neoplasm Z13.89 Encounter for screening for other disorder Z87.19 Personal history of other diseases of the digestive system Z98.890 Other specified postprocedu ral states Allergies, Adverse Reactions, Alerts Type Propensity to adverse reactions to drug Adverse Reaction to Substance Substance Reaction Severity Ibuprofen CAUSES NERVOUSNESS Unknown Clinical Alert Notifications Alert Member has >/= 3 hosp admit & >/= 1 ED visit in 365 days Medications Na ND Rx Da Fi Fi Am Da Di Ph RX Ph St me C No te ll ll ou ys ag ar # ys at rm s nt no ma ic us Or Da si cy ia de te s n re d DI 00 06 07 90 30 00 KR Ac CY 37 -0 -0 .0 00 OG ti CL 81 8- 7- 00 06 ER ve OM 62 20 20 33 IN 00 17 17 35 PH E 5 11 AR 20 MA CY MG #1 TA 44 BL 10 ET TO 68 06 07 30 30 00 KR Ac PI 38 -0 -0 .0 00 OG ti RA 20 9- 7- 00 06 ER ve MA 13 20 20 33 TE 90 17 17 38 PH 5 40 AR 50 MA CY MG #1 TA 44 BL 10 ET OR 00 06 06 20 10 00 WA Ac PH 18 -0 -3 .0 00 L- ti EN 50 6- 0- 00 07 MA ve AD 02 20 20 77 RT RI 20 17 17 71 NE 1 06 PH AR ER MA CY 10 0 #1 MG 0- 19 TA 61 BL ET CI 00 06 06 14 7 00 WA Ac PA 17 -0 -3 .0 00 L- ti OF 25 6- 0- 00 07 MA ve LO 31 20 20 77 RT XA 26 17 17 71 CI 0 07 PH N AR HC MA L CY 50 0 #1 MG 0- 19 TA 61 B PA 65 05 06 20 7 00 DE Ac OM 16 -3 -2 .0 00 AN ti ET 20 0- 3- 00 06 S ve MAIN 52 20 20 51 PH ZI 11 17 17 54 AR NE 1 54 MA CY 25 MG TA BL ET DI 00 05 06 20 5 00 DE Ac CY 37 -3 -2 .0 00 AN ti CL 81 0- 3- 00 06 S ve OM 62 20 20 51 PH IN 00 17 17 54 AR E 1 56 MA 20 CY MG TA BL ET CI 00 05 06 30 30 00 DE Ac TA 37 -3 -2 .0 00 AN ti LO 86 0- 3- 00 06 S ve PA 23 20 20 51 PH AM 30 17 17 54 AR 5 57 MA HB CY R 40 MG TA BL ET TO 68 05 06 30 30 00 DE Ac PI 38 -3 -2 .0 00 AN ti RA 20 0- 3- 00 06 S ve MA 13 20 20 51 PH TE 81 17 17 54 AR 4 59 MA 25 CY MG TA BL ET FE 00 05 06 30 30 00 DE Ac RR 90 -3 -2 .0 00 AN ti OU 47 0- 3- 00 06 S ve S 59 20 20 51 PH SUGGS 06 17 17 54 AR LF 0 60 MA AT CY E 32 5 MG TA BL ET RA 53 05 06 28 14 00 KR Ac NI 74 -1 -0 .0 00 OG ti TI 60 2- 9- 00 06 ER ve DI 25 20 20 61 NE 30 17 17 33 PH 5 00 AR 15 MA 0 CY MG #4 TA 20 BL ET DI 00 05 06 20 5 00 KR Ac CY 37 -1 -0 .0 00 OG ti CL 81 2- 9- 00 06 ER ve OM 62 20 20 61 IN 00 17 17 33 PH E 1 01 AR 20 MA CY MG #4 TA 20 BL ET PA 62 05 06 20 20 00 KR Ac NT 17 -1 -0 .0 00 OG ti OP 50 2- 9- 00 06 ER ve RA 61 20 20 61 ZO 74 17 17 33 PH LE 3 02 AR MA SO CY D DR #4 20 40 MG TA B CI 69 05 05 30 30 00 KR Ac TA 09 -0 -2 .0 00 OG ti LO 70 3- 6- 00 06 ER ve PA 82 20 20 32 AM 41 17 17 50 PH 2 70 AR HB MA R CY 40 #1 MG 44 10 TA BL ET AM 00 04 05 20 10 00 KR Ac OX 78 -2 -1 .0 00 OG ti -C 11 4- 9- 00 06 ER ve LA 85 20 20 32 V 22 17 17 24 PH 87 0 02 AR 5- MA 12 CY 5 MG #1 44 TA 10 BL ET OX 53 04 05 20 3 00 KR Ac YC 74 -2 -1 .0 00 OG ti OD 60 4- 9- 00 02 ER ve ON 20 20 26 E- 30 17 17 67 PH AC 1 97 AR ET MA AM CY IN OP #1 HE 44 N 10 5- 32 5 OX 10 03 04 20 5 00 KR Ac YC 70 -3 -2 .0 00 OG ti OD 20 1- 8- 00 02 ER ve ON 03 30 20 26 E 80 17 17 61 PH HC 1 91 AR L MA 5 CY MG #1 TA 44 BL 10 ET PA 00 03 04 18 9 00 KR ED 05 -2 -2 .0 00 OG ti NI 40 4- 1- 00 06 ER ve SO 01 20 20 31 NE 72 17 17 53 PH 9 32 AR 10 MA CY MG #1 TA 44 BL 10 ET FL 00 03 04 12 60 00 KR OV 17 -2 -2 .0 00 OG ti EN 30 4- 1- 00 06 ER ve T 71 20 20 31 HF 92 17 17 53 PH A 0 33 AR 11 MA 0 CY MC G #1 IN 44 MAIN 10 LE R OX 10 03 04 18 3 00 KR Ac YC 70 -2 -2 .0 00 OG ti OD 20 4- 1- 00 02 ER ve ON 20 20 26 E 80 17 17 60 PH HC 1 43 AR L MA 5 CY MG #1 TA 44 BL 10 ET IP 76 03 04 90 7 00 KR Ac RA 20 -2 -2 .0 00 OG ti T- 40 4- 1- 00 06 ER ve AL 60 20 20 31 BU 00 17 17 53 PH T 5 30 AR 0. MA 5- CY 3( 2. #1 5) 44 10 MG /3 ML DO 00 03 04 10 5 00 KR Ac XY 37 -2 -2 .0 00 OG ti CY 80 4- 1- 00 06 ER ve CL 16 20 20 31 IN 70 17 17 53 PH E 5 31 AR HY MA CL CY AT E #1 10 44 0 10 MG TA B CI 69 03 04 30 30 00 KR Ac TA 09 -2 -2 .0 00 OG ti LO 70 7- 1- 00 06 ER ve PA 82 20 20 14 AM 31 17 17 10 PH 2 29 AR HB MA R CY 20 #1 MG 49 46 TA BL ET TO 68 03 04 30 30 00 KR Ac PI 38 -2 -2 .0 00 OG ti RA 20 7- 1- 00 06 ER ve MA 13 20 20 14 TE 81 17 17 10 PH 4 30 AR 25 MA CY MG #1 TA 49 BL 46 ET FE 00 03 04 30 30 00 KR Ac RR 90 -2 -2 .0 00 OG ti OU 47 7- 1- 00 06 ER ve S 59 20 20 14 SUGGS 18 17 17 10 PH LF 0 31 AR AT MA E CY 32 5 #1 MG 49 46 TA BL ET AL 00 03 04 36 30 00 YO Ac BU 48 -2 -2 0. 00 UR ti TE 79 9- 1- 00 00 ve RO 50 20 20 0 03 PH L 16 17 17 24 AR SUGGS 0 07 MA L CY 2. 5 LL MG C /3 ML SO LN FE 00 01 01 30 30 00 KR Ac RR 90 -0 -2 .0 00 OG ti OU 47 3- 7- 00 06 ER ve S 59 20 20 29 SUGGS 18 17 17 33 PH LF 0 94 AR AT MA E CY 32 5 #1 MG 44 10 TA BL ET TO 68 01 30 30 00 KR Ac PI 38 -0 -2 .0 00 OG ti RA 20 3- 7- 00 06 ER ve MA 13 20 20 29 TE 80 17 17 33 PH 5 95 AR 25 MA CY MG #1 TA 44 BL 10 ET CI 69 01 01 30 30 00 KR Ac TA 09 -0 -2 .0 00 OG ti LO 70 3- 7- 00 06 ER ve PA 82 20 20 29 AM 31 17 17 33 PH 2 96 AR HB MA R CY 20 #1 MG 44 10 TA BL ET PA 65 12 01 20 7 00 DE Ac OM 16 -1 -1 .0 00 AN ti ET 20 9- 3- 00 06 S ve MAIN 52 20 20 50 PH ZI 11 16 17 70 AR NE 1 05 MA CY 25 MG TA BL ET CI 13 12 01 30 30 00 KR Ac TA 66 -0 -0 .0 00 OG ti LO 80 8- 9- 00 06 ER ve PA 00 20 20 57 AM 90 16 17 38 PH 5 83 AR HB MA R CY 10 #4 MG 20 TA BL ET CY 00 05 05 0 15 5 RI 10 WE Ac CL 60 -0 -0 0. TE 31 HR ti OB 33 9- 9- 00 44 MA ve EN 07 20 20 0 AI 4 N ZA 93 14 14 D II PA 2 PH I IN AR WI E MA LL 10 CY IA M MG 03 E 93 TA 8 BL # ET 03 93 SO 00 01 0 No DI 40 -2 UM 97 6- Lo 98 20 ng CH 30 14 er LO 9 RI Ac DE ti ve 0. 9% SO SIA TI ON Sa 63 01 0 No li 80 -2 ne 70 6- Lo 10 20 ng Fl 07 14 er us 5 h Ac 10 ti ML ve Sy ri ng e De 00 01 0 No xa 51 -2 me 74 6- Lo th 90 20 ng as 12 14 er on 5 e Ac 4M ti G/ ve Ml Sd v KE 00 01 0 No TO 40 -2 RO 93 6- Lo LA 79 20 ng C 50 14 er 30 1 Ac MG ti /M ve L AL DI 00 01 0 No PH 40 -2 EN 92 6- Lo HY [address] 03 14 er AM 1 IN Ac E ti 50 ve MG /M L SY RN G ME 00 01 0 No TO 40 -2 CL 93 6- Lo OP 41 20 ng RA 40 14 er MO 1 DE Ac ti 10 ve MG /2 ML AL ON 00 01 0 No DA 64 -2 NS 16 6- Lo ET 08 20 ng RO 02 14 er N 5 HC Ac L ti 4 ve MG /2 ML AL Sa 63 01 0 No li 80 -2 ne 70 6- Lo 10 20 ng Fl 07 14 er us 5 h Ac 10 ti ML ve Sy ri ng e De 00 01 0 No xa 51 -2 me 74 6- Lo th 90 20 ng as 12 14 er on 5 e Ac 4M ti G/ ve Ml Sd v Sa 63 01 0 No li 80 -1 ne 70 1- Lo 10 20 ng Fl 07 14 er us 5 h Ac 10 ti ML ve Sy ri ng e Sa 63 01 0 No li 80 -1 ne 70 1- Lo 10 20 ng Fl 07 14 er us 5 h Ac 10 ti ML ve Sy ri ng e AC 51 11 0 No ET 07 -2 AM 90 0- Lo IN 16 20 ng OP 19 13 er HE 9H N Ac W/ ti CO ve DE IN E #3 TA K ON 00 06 0 No DA 37 -2 NS 87 7- Lo ET 73 20 ng RO 29 13 er N 3 OD Ac T ti 4 ve MG TA BL ET SUGGS 51 05 0 No LF 07 -1 AM 90 0- Lo ET 12 20 ng HO 82 13 er XA 0 ZO Ac LE ti -T ve MP DS TA BL ET AC 51 05 0 No ET 07 -1 AM 90 0- Lo IN 16 20 ng OP 19 13 er HE 9H N Ac W/ ti CO ve DE IN E #3 TA K AC 51 04 0 No ET 07 -2 AM 90 2- Lo IN 16 20 ng OP 19 13 er HE 9H N Ac W/ ti CO ve DE IN E #3 TA K PA 51 04 0 No OM 07 -2 ET 90 2- Lo MAIN 89 20 ng ZI 52 13 er NE 0H Ac 25 ti MG ve TA BL ET TA KE ME 00 01 10 11 12 30 RI 86 AR Ac TH 60 -2 -3 0. TE 81 NO ti OC 34 7- 1- 00 51 LD ve AR 48 20 20 0 AI BA 62 11 11 D RI MO 1 PH CH L AR AR 75 MA D 0 CY W MG 03 TA 93 BL 8 ET # 03 93 BU 00 10 10 5 40 10 RI 90 AR Ac TA 14 -0 -3 .0 TE 22 NO ti LB 31 6- 1- 00 22 LD ve -A 78 20 20 AI CE 70 11 11 D RI TA 1 PH CH MO AR AR N- MA D CA CY W FF 03 50 93 -3 8 25 # -4 03 0 93 PA 00 10 10 5 15 3 RI 90 AR Ac OM 60 -0 -3 .0 TE 22 NO ti ET 35 6- 1- 00 23 LD ve MAIN 43 20 20 AI ZI 82 11 11 D RI NE 1 PH CH AR AR 25 MA D CY W MG 03 TA 93 BL 8 ET # 03 93 CH 00 10 10 1 10 25 RI 90 AR Ac LO 59 -2 -2 0. TE 54 NO ti RZ 12 8- 8- 00 46 LD ve OX 52 20 20 0 AI AZ 00 11 11 D RI ON 1 PH CH E AR AR 50 MA D 0 CY W MG 03 TA 93 BL 8 ET # 03 93 AV 00 10 10 1 10 10 RI 90 AR Ac EL 08 -0 -0 .0 TE 22 NO ti OX 51 6- 6- 00 21 LD ve 73 20 20 AI 40 30 11 11 D RI 0 1 PH CH MG AR AR MA D TA CY W BL ET 03 93 8 # 03 93 BU 00 10 10 5 40 10 RI 90 AR Ac TA 14 -0 -0 .0 TE 22 NO ti LB 31 6- 6- 00 22 LD ve -A 78 20 20 AI CE 70 11 11 D RI TA 1 PH CH MO AR AR N- MA D CA CY W FF 03 50 93 -3 8 25 # -4 03 0 93 PA 00 10 10 5 15 3 RI 90 AR Ac OM 60 -0 -0 .0 TE 22 NO ti ET 35 6- 6- 00 23 LD ve MAIN 43 20 20 AI ZI 82 11 11 D RI NE 1 PH CH AR AR 25 MA D CY W MG 03 TA 93 BL 8 ET # 03 93 00 10 10 1 60 20 RI 90 AR Ac 55 -0 -0 .0 TE 22 NO ti 51 6- 6- 00 24 LD ve 88 20 20 AI 30 11 11 D RI 2 PH CH AR AR MA D CY W 03 93 8 # 03 93 FL 00 10 10 1 16 30 RI 90 AR Ac UT 05 -0 -0 .0 TE 22 NO ti IC 43 6- 6- 00 26 LD ve 27 20 20 AI ON 09 11 11 D RI E 9 PH CH PA AR AR OP MA D CY W 50 03 MC 93 G 8 SP # RA 03 Y 93 TR 45 10 10 1 80 15 RI 90 AR Ac IA 80 -0 -0 .0 TE 22 NO ti MC 20 6- 6- 00 27 LD ve IN 06 20 20 AI OL 43 11 11 D RI ON 6 PH CH E AR AR 0. MA D 1% CY W CR 03 EA 93 M 8 # 03 93 ME 00 10 10 21 5 RI 90 SO Ac TH 60 -0 -0 .0 TE 22 KA ti YL 34 5- 6- 00 20 N ve PA 59 20 20 AI BA ED 31 11 11 D BA NI 5 PH TU SO AR ND LO MA E NE CY O 4 03 MG 93 8 DO # SE 03 PK 93 ME 00 01 09 11 12 30 RI 86 AR Ac TH 60 -2 -2 0. TE 81 NO ti OC 34 7- 1- 00 51 LD ve AR 48 20 20 0 AI BA 62 11 11 D RI MO 1 PH CH L AR AR 75 MA D 0 CY W MG 03 TA 93 BL 8 ET # 03 93 SE 31 07 09 5 30 30 RI 89 AR Ac RT 72 -1 -2 .0 TE 13 NO ti RA 20 8- 1- 00 00 LD ve LI 21 20 20 AI NE 43 11 11 D RI 0 PH CH HC AR AR L MA D 10 CY W 0 MG 03 93 TA 8 BL # ET 03 93 BU 00 09 09 1 40 10 RI 89 AR Ac TA 14 -2 -2 .0 TE 98 NO ti LB 31 1- 1- 00 60 LD ve -A 78 20 20 AI CE 70 11 11 D RI TA 1 PH CH MO AR AR N- MA D CA CY W FF 03 50 93 -3 8 25 # -4 03 0 93 CI 65 08 08 20 10 RI 89 WE Ac PA 86 -0 -0 .0 TE 38 HR ti OF 20 4- 5- 00 27 MA ve LO 07 20 20 AI N XA 70 11 11 D II CI 1 PH I N AR WI HC MA LL L CY IA 50 M 0 03 E MG 93 8 TA # B 03 93 ME 50 08 08 30 10 RI 89 WE Ac TR 11 -0 -0 .0 TE 38 HR ti ON 10 4- 5- 00 28 MA ve ID 33 20 20 AI N AZ 40 11 11 D II OL 1 PH I E AR WI 50 MA LL 0 CY IA MG M 03 E TA 93 BL 8 ET # 03 93 PA 00 08 08 13 11 RI 89 WE Ac ED 59 -0 -0 .0 TE 38 HR ti NI 15 4- 5- 00 30 MA ve SO 44 20 20 AI N NE 30 11 11 D II 1 PH I 20 AR WI MA LL MG CY IA M TA 03 E BL 93 ET 8 # 03 93 PA 00 08 08 15 3 RI 89 WE Ac OM 60 -0 -0 .0 TE 38 HR ti ET 35 4- 5- 00 32 MA ve MAIN 43 20 20 AI N ZI 82 11 11 D II NE 1 PH I AR WI 25 MA LL CY IA MG M 03 E TA 93 BL 8 ET # 03 93 BU 00 07 08 1 40 10 RI 89 AR Ac TA 14 -1 -0 .0 TE 10 NO ti LB 31 4- 1- 00 48 LD ve -A 78 20 20 AI CE 70 11 11 D RI TA 1 PH CH MO AR AR N- MA D CA CY W FF 03 50 93 -3 8 25 # -4 03 0 93 ME 00 01 08 11 12 30 RI 86 AR Ac TH 60 -2 -0 0. TE 81 NO ti OC 34 7- 1- 00 51 LD ve AR 48 20 20 0 AI BA 62 11 11 D RI MO 1 PH CH L AR AR 75 MA D 0 CY W MG 03 TA 93 BL 8 ET # 03 93 SE 31 07 07 5 30 30 RI 89 AR Ac RT 72 -1 -1 .0 TE 13 NO ti RA 20 8- 8- 00 00 LD ve LI 21 20 20 AI NE 43 11 11 D RI 0 PH CH HC AR AR L MA D 10 CY W 0 MG 03 93 TA 8 BL # ET 03 93 BU 00 07 07 1 40 10 RI 89 AR Ac TA 14 -1 -1 .0 TE 10 NO ti LB 31 4- 4- 00 48 LD ve -A 78 20 20 AI CE 70 11 11 D RI TA 1 PH CH MO AR AR N- MA D CA CY W FF 03 50 93 -3 8 25 # -4 03 0 93 00 07 07 1 40 10 RI 89 AR Ac 14 -1 -1 .0 TE 10 NO ti 31 4- 4- 00 49 LD ve 22 20 20 AI 70 11 11 D RI 1 PH CH AR AR MA D CY W 03 93 8 # 03 93 ME 00 01 06 11 12 30 RI 86 AR Ac TH 60 -2 -2 0. TE 81 NO ti OC 34 7- 3- 00 51 LD ve AR 48 20 20 0 AI BA 62 11 11 D RI MO 1 PH CH L AR AR 75 MA D 0 CY W MG 03 TA 93 BL 8 ET # 03 93 ME 00 01 05 11 12 30 RI 86 AR Ac TH 60 -2 -1 0. TE 81 NO ti OC 34 7- 9- 00 51 LD ve AR 48 20 20 0 AI BA 62 11 11 D RI MO 1 PH CH L AR AR 75 MA D 0 CY W MG 03 TA 93 BL 8 ET # 03 93 00 04 05 1 60 15 RI 88 AR Ac 59 -2 -1 .0 TE 00 NO ti 13 0- 9- 00 76 LD ve 96 20 20 AI 80 11 11 D RI 1 PH CH AR AR MA D CY W 03 93 8 # 03 93 00 04 04 1 60 15 RI 88 AR Ac 59 -2 -2 .0 TE 00 NO ti 13 0- 0- 00 76 LD ve 96 20 20 AI 80 11 11 D RI 1 PH CH AR AR MA D CY W 03 93 8 # 03 93 ME 00 01 04 11 12 30 RI 86 AR Ac TH 60 -2 -0 0. TE 81 NO ti OC 34 7- 9- 00 51 LD ve AR 48 20 20 0 AI BA 62 11 11 D RI MO 1 PH CH L AR AR 75 MA D 0 CY W MG 03 TA 93 BL 8 ET # 03 93 OX 00 03 03 12 3 RI 87 RU Ac YC 60 -3 -3 .0 TE 72 SH ti OD 34 0- 0- 00 78 ve ON 99 20 20 AI NE E- 82 11 11 D IL AC 1 PH C ET AR AM MA IN CY OP HE 03 N 93 5- 8 32 # 5 03 93 PE 00 03 03 40 10 RI 87 RU Ac NI 09 -3 -3 .0 TE 72 SH ti CI 31 0- 0- 00 80 ve LL 17 20 20 AI NE IN 20 11 11 D IL 1 PH C VK AR MA 25 CY 0 MG 03 93 TA 8 BL # ET 03 93 AC 00 03 03 12 3 RI 87 RU Ac ET 60 -2 -2 .0 TE 71 SH ti AM 32 9- 9- 00 43 ve IN 33 20 20 AI NE OP 83 11 11 D IL HE 2 PH C N- AR CO MA D CY #3 03 TA 93 BL 8 ET # 03 93 PA 00 03 03 2 40 6 RI 87 AR Ac OM 60 -2 -2 .0 TE 65 NO ti ET 35 5- 5- 00 94 LD ve MAIN 43 20 20 AI ZI 82 11 11 D RI NE 1 PH CH AR AR 25 MA D CY W MG 03 TA 93 BL 8 ET # 03 93 AZ 00 03 03 1 6. 5 RI 87 AR Ac IT 78 -1 -1 00 TE 49 NO ti HR 11 4- 4- 0 24 LD ve OM 49 20 20 AI YC 66 11 11 D RI IN 8 PH CH AR AR 25 MA D 0 CY W MG 03 TA 93 BL 8 ET # 03 93 LO 00 03 03 5 30 30 RI 87 AR Ac RA 78 -1 -1 .0 TE 49 NO ti TA 15 4- 4- 00 25 LD ve DI 07 20 20 AI NE 70 11 11 D RI 1 PH CH 10 AR AR MA D MG CY W TA 03 BL 93 ET 8 # 03 93 ME 00 01 03 11 12 30 RI 86 AR Ac TH 60 -2 -0 0. TE 81 NO ti OC 34 7- 2- 00 51 LD ve AR 48 20 20 0 AI BA 62 11 11 D RI MO 1 PH CH L AR AR 75 MA D 0 CY W MG 03 TA 93 BL 8 ET # 03 93 AC 00 01 01 12 3 RI 86 RU Ac ET 40 -2 -2 .0 TE 83 SH ti AM 60 8- 8- 00 92 ve IN 48 20 20 AI NE OP 40 11 11 D IL HE 1 PH C N- AR CO MA D CY #3 03 TA 93 BL 8 ET # 03 93 ME 00 01 01 11 12 30 RI 86 AR Ac TH 60 -2 -2 0. TE 81 NO ti OC 34 7- 7- 00 51 LD ve AR 48 20 20 0 AI BA 62 11 11 D RI MO 1 PH CH L AR AR 75 MA D 0 CY W MG 03 TA 93 BL 8 ET # 03 93 PA 00 11 01 2 40 6 RI 85 AR Ac OM 60 -0 -2 .0 TE 74 NO ti ET 35 9- 7- 00 64 LD ve MAIN 43 20 20 AI ZI 82 10 11 D RI NE 1 PH CH AR AR 25 MA D CY W MG 03 TA 93 BL 8 ET # 03 93 AM 00 01 01 1 30 10 RI 86 AR Ac OX 78 -2 -2 .0 TE 78 NO ti IC 12 5- 5- 00 76 LD ve IL 61 20 20 AI LI 30 11 11 D RI N 5 PH CH 50 AR AR 0 MA D MG CY W CA 03 PS 93 UL 8 E # 03 93 PA 00 11 01 2 40 6 RI 85 AR Ac OM 60 -0 -1 .0 TE 74 NO ti ET 35 9- 0- 00 64 LD ve MAIN 43 20 20 AI ZI 82 10 11 D RI NE 1 PH CH AR AR 25 MA D CY W MG 03 TA 93 BL 8 ET # 03 93 53 01 01 1 40 10 RI 86 AR Ac 74 -1 -1 .0 TE 58 NO ti 60 0- 0- 00 92 LD ve 11 20 20 AI 11 11 11 D RI 0 PH CH AR AR MA D CY W 03 93 8 # 03 93 65 12 12 2 90 30 RI 86 CLAUDIA Ac 48 -2 -2 .0 TE 34 SC ti 30 2- 2- 00 76 H ve 70 20 20 AI AN 21 10 10 D TO 0 PH NI AR O MA CY 03 93 8 # 03 93 ME 00 05 12 5 12 30 RI 84 AR Ac TH 60 -1 -2 0. TE 80 NO ti OC 34 2- 1- 00 62 LD ve AR 48 20 20 0 AI BA 62 10 10 D RI MO 1 PH CH L AR AR 75 MA D 0 CY W MG 03 TA 93 BL 8 ET # 03 93 BU 00 09 12 5 60 15 RI 85 AR Ac TA 14 -2 -2 .0 TE 19 NO ti LB 31 8- 0- 00 04 LD ve -A 78 20 20 AI CE 70 10 10 D RI TA 1 PH CH MO AR AR N- MA D CA CY W FF 03 50 93 -3 8 25 # -4 03 0 93 BU 00 09 11 5 60 15 RI 85 AR Ac TA 14 -2 -2 .0 TE 19 NO ti LB 31 8- 9- 00 04 LD ve -A 78 20 20 AI CE 70 10 10 D RI TA 1 PH CH MO AR AR N- MA D CA CY W FF 03 50 93 -3 8 25 # -4 03 0 93 ME 00 05 11 5 12 30 RI 84 AR Ac TH 60 -1 -1 0. TE 80 NO ti OC 34 2- 2- 00 62 LD ve AR 48 20 20 0 AI BA 62 10 10 D RI MO 1 PH CH L AR AR 75 MA D 0 CY W MG 03 TA 93 BL 8 ET # 03 93 AC 00 11 11 18 4 RI 85 RU Ac ET 60 -1 -1 .0 TE 80 SH ti AM 32 1- 2- 00 11 ve IN 33 20 20 AI NE OP 83 10 10 D IL HE 2 PH C N- AR CO MA D CY #3 03 TA 93 BL 8 ET # 03 93 OX 53 11 11 30 7 RI 85 AR Ac YC 74 -0 -0 .0 TE 74 NO ti OD 60 9- 9- 00 63 LD ve ON 20 20 20 AI E- 40 10 10 D RI AC 1 PH CH ET AR AR AM MA D IN CY W OP HE 03 N 93 10 8 -3 # 25 03 93 PA 00 11 11 2 40 6 RI 85 AR Ac OM 60 -0 -0 .0 TE 74 NO ti ET 35 9- 9- 00 64 LD ve MAIN 43 20 20 AI ZI 82 10 10 D RI NE 1 PH CH AR AR 25 MA D CY W MG 03 TA 93 BL 8 ET # 03 93 AC 00 09 10 1 10 16 RI 85 AR Ac ET 60 -2 -1 0. TE 19 NO ti AM 32 8- 9- 00 03 LD ve IN 33 20 20 0 AI OP 83 10 10 D RI HE 2 PH CH N- AR AR CO MA D D CY W #3 03 TA 93 BL 8 ET # 03 93 BU 00 09 10 5 60 15 RI 85 AR Ac TA 14 -2 -1 .0 TE 19 NO ti LB 31 8- 9- 00 04 LD ve -A 78 20 20 AI CE 70 10 10 D RI TA 1 PH CH MO AR AR N- MA D CA CY W FF 03 50 93 -3 8 25 # -4 03 0 93 AC 00 09 09 1 10 16 RI 85 AR Ac ET 60 -2 -2 0. TE 19 NO ti AM 32 8- 9- 00 03 LD ve IN 33 20 20 0 AI OP 83 10 10 D RI HE 2 PH CH N- AR AR CO MA D D CY W #3 03 TA 93 BL 8 ET # 03 93 BU 00 09 09 5 60 15 RI 85 AR Ac TA 14 -2 -2 .0 TE 19 NO ti LB 31 8- 9- 00 04 LD ve -A 78 20 20 AI CE 70 10 10 D RI TA 1 PH CH MO AR AR N- MA D CA CY W FF 03 50 93 -3 8 25 # -4 03 0 93 PE 00 09 09 1 59 1 RI 84 AR Ac RM 47 -0 -0 .0 TE 88 NO ti ET 25 7- 7- 00 42 LD ve HR 24 20 20 AI IN 26 10 10 D RI 7 PH CH 1% AR AR MA D LO CY W TI ON 03 93 8 # 03 93 TR 00 09 09 60 15 RI 84 AR Ac AM 09 -0 -0 .0 TE 84 NO ti AD 30 3- 3- 00 68 LD ve OL 05 20 20 AI 80 10 10 D RI HC 1 PH CH L AR AR 50 MA D CY W MG 03 TA 93 BL 8 ET # 03 93 AZ 00 08 08 1 6. 5 RI 84 AR Ac IT 78 -3 -3 00 TE 77 NO ti HR 11 1- 1- 0 97 LD ve OM 49 20 20 AI YC 66 10 10 D RI IN 8 PH CH AR AR 25 MA D 0 CY W MG 03 TA 93 BL 8 ET # 03 93 PA 00 08 08 1 18 6 RI 84 AR Ac OM 60 -3 -3 0. TE 77 NO ti ET 31 1- 1- 00 98 LD ve MAIN 58 20 20 0 AI ZI 65 10 10 D RI NE 4 PH CH -D AR AR M MA D SY CY W RU P 03 93 8 # 03 93 59 08 08 8. 16 RI 84 AR Ac 31 -3 -3 50 TE 77 NO ti 00 1- 1- 0 99 LD ve 57 20 20 AI 92 10 10 D RI 0 PH CH AR AR MA D CY W 03 93 8 # 03 93 ME 00 08 08 1 21 6 RI 84 AR Ac TH 60 -3 -3 .0 TE 78 NO ti YL 34 1- 1- 00 00 LD ve PA 59 20 20 AI ED 31 10 10 D RI NI 5 PH CH SO AR AR LO MA D NE CY W 4 03 MG 93 8 DO # SE 03 PK 93 ME 00 05 08 5 12 30 RI 84 AR Ac TH 60 -1 -3 0. TE 80 NO ti OC 34 2- 1- 00 62 LD ve AR 48 20 20 0 AI BA 62 10 10 D RI MO 1 PH CH L AR AR 75 MA D 0 CY W MG 03 TA 93 BL 8 ET # 03 93 TR 00 08 08 60 15 RI 84 AR Ac AM 09 -1 -1 .0 TE 55 NO ti AD 30 3- 3- 00 38 LD ve OL 05 20 20 AI 80 10 10 D RI HC 1 PH CH L AR AR 50 MA D CY W MG 03 TA 93 BL 8 ET # 03 93 AC 00 06 07 1 40 6 RI 83 AR Ac ET 60 -1 -2 .0 TE 83 NO ti AM 32 7- 1- 00 99 LD ve IN 33 20 20 AI OP 83 10 10 D RI HE 2 PH CH N- AR AR CO MA D D CY W #3 03 TA 93 BL 8 ET # 03 93 ME 00 05 07 5 12 30 RI 83 AR Ac TH 60 -1 -2 0. TE 35 NO ti OC 34 2- 1- 00 81 LD ve AR 48 20 20 0 AI BA 62 10 10 D RI MO 1 PH CH L AR AR 75 MA D 0 CY W MG 03 TA 93 BL 8 ET # 03 93 PA 00 06 07 1 40 6 RI 83 AR Ac OM 60 -1 -2 .0 TE 83 NO ti ET 35 7- 1- 00 97 LD ve MAIN 43 20 20 AI ZI 82 10 10 D RI NE 1 PH CH AR AR 25 MA D CY W MG 03 TA 93 BL 8 ET # 03 93 ME 00 05 06 5 12 30 RI 83 AR Ac TH 60 -1 -1 0. TE 35 NO ti OC 34 2- 8- 00 81 LD ve AR 48 20 20 0 AI BA 62 10 10 D RI MO 1 PH CH L AR AR 75 MA D 0 CY W MG 03 TA 93 BL 8 ET # 03 93 LO 00 06 06 1 40 6 RI 83 AR Ac PE 09 -1 -1 .0 TE 85 NO ti RA 30 7- 7- 00 34 LD ve MO 31 20 20 AI DE 10 10 10 D RI 2 1 PH CH AR AR MG MA D CY W CA PS 03 UL 93 E 8 # 03 93 ME 49 06 06 1 30 10 RI 83 AR Ac CL 88 -1 -1 .0 TE 83 NO ti IZ 40 7- 7- 00 96 LD ve IN 03 20 20 AI E 50 10 10 D RI 25 1 PH CH AR AR MG MA D CY W TA BL 03 ET 93 8 # 03 93 PA 00 06 06 1 40 6 RI 83 AR Ac OM 78 -1 -1 .0 TE 83 NO ti ET 11 7- 7- 00 97 LD ve MAIN 83 20 20 AI ZI 00 10 10 D RI NE 1 PH CH AR AR 25 MA D CY W MG 03 TA 93 BL 8 ET # 03 93 AC 00 06 06 1 40 6 RI 83 AR Ac ET 60 -1 -1 .0 TE 83 NO ti AM 32 7- 7- 00 99 LD ve IN 33 20 20 AI OP 83 10 10 D RI HE 2 PH CH N- AR AR CO MA D D CY W #3 03 TA 93 BL 8 ET # 03 93 OX 53 06 06 30 7 RI 83 AR Ac YC 74 -0 -0 .0 TE 65 NO ti OD 60 3- 3- 00 50 LD ve ON 20 20 20 AI E- 40 10 10 D RI AC 1 PH CH ET AR AR AM MA D IN CY W OP HE 03 N 93 10 8 -3 # 25 03 93 BU 00 04 05 1 60 10 RI 83 AR Ac TA 60 -1 -2 .0 TE 00 NO ti LB 32 5- 0- 00 05 LD ve -A 54 20 20 AI CE 42 10 10 D RI TA 1 PH CH MO AR AR N- MA D CA CY W FF 03 50 93 -3 8 25 # -4 03 0 93 ME 00 05 05 5 12 30 RI 83 AR Ac TH 60 -1 -1 0. TE 35 NO ti OC 34 2- 2- 00 81 LD ve AR 48 20 20 0 AI BA 62 10 10 D RI MO 1 PH CH L AR AR 75 MA D 0 CY W MG 03 TA 93 BL 8 ET # 03 93 TR 00 05 05 10 25 RI 83 AR Ac AM 09 -0 -0 0. TE 28 NO ti AD 30 6- 6- 00 04 LD ve OL 05 20 20 0 AI 80 10 10 D RI HC 1 PH CH L AR AR 50 MA D CY W MG 03 TA 93 BL 8 ET # 03 93 AZ 59 04 04 1 6. 5 RI 83 AR Ac IT 76 -2 -2 00 TE 10 NO ti HR 23 3- 3- 0 69 LD ve OM 06 20 20 AI YC 00 10 10 D RI IN 1 PH CH AR AR 25 MA D 0 CY W MG 03 TA 93 BL 8 ET # 03 93 PA 00 04 04 30 7 RI 83 AR Ac OM 78 -2 -2 .0 TE 10 NO ti ET 11 3- 3- 00 70 LD ve MAIN 83 20 20 AI ZI 00 10 10 D RI NE 1 PH CH AR AR 25 MA D CY W MG 03 TA 93 BL 8 ET # 03 93 ME 00 04 04 21 6 RI 83 AR Ac TH 60 -2 -2 .0 TE 10 NO ti YL 34 3- 3- 00 71 LD ve PA 59 20 20 AI ED 31 10 10 D RI NI 5 PH CH SO AR AR LO MA D NE CY W 4 03 MG 93 8 DO # SE 03 PK 93 LI 00 04 04 1 10 10 RI 83 AR Ac DO 60 -2 -2 0. TE 10 NO ti CA 31 3- 3- 00 72 LD ve IN 39 20 20 0 AI E 36 10 10 D RI 2% 4 PH CH AR AR MA D SC CY W OU S 03 SO 93 LN 8 # 03 93 60 04 04 1 24 6 RI 83 AR Ac 25 -2 -2 0. TE 10 NO ti 80 3- 3- 00 73 LD ve 23 20 20 0 AI 91 10 10 D RI 6 PH CH AR AR MA D CY W 03 93 8 # 03 93 00 04 04 10 2 RI 83 WE Ac 40 -1 -1 .0 TE 03 HR ti 60 7- 9- 00 81 MA ve 35 20 20 AI N 70 10 10 D II 5 PH I AR WI MA LL CY IA M 03 E 93 8 # 03 93 PA 00 04 04 10 2 RI 83 WE Ac OM 78 -1 -1 .0 TE 03 HR ti ET 11 7- 9- 00 82 MA ve MAIN 83 20 20 AI N ZI 00 10 10 D II NE 1 PH I AR WI 25 MA LL CY IA MG M 03 E TA 93 BL 8 ET # 03 93 BU 00 04 04 1 60 10 RI 83 AR Ac TA 60 -1 -1 .0 TE 00 NO ti LB 32 5- 5- 00 05 LD ve -A 54 20 20 AI CE 42 10 10 D RI TA 1 PH CH MO AR AR N- MA D CA CY W FF 03 50 93 -3 8 25 # -4 03 0 93 00 04 04 12 3 RI 82 SO Ac 60 -0 -0 .0 TE 89 KA ti 35 7- 7- 00 71 N ve 46 20 20 AI BA 82 10 10 D BA 8 PH TU AR ND MA E CY O 03 93 8 # 03 93 00 03 03 1 60 15 RI 82 AR Ac 59 -2 -2 .0 TE 72 NO ti 13 6- 6- 00 70 LD ve 96 20 20 AI 80 10 10 D RI 1 PH CH AR AR MA D CY W 03 93 8 # 03 93 BU 00 12 03 3 60 30 CL 20 AR Ac PA 18 -0 -0 .0 IN 58 NO ti OP 50 2- 1- 00 IC 96 LD ve IO 41 20 20 N 56 09 10 PH RI HC 0 AR CH L MA AR SR CY D W 15 LL 0 C MG TA BL ET TO 68 01 03 0 60 30 CL 20 OC Ac PI 38 -0 -0 .0 IN 80 ON ti RA 20 5- 1- 00 IC 87 NE ve MA 13 20 20 LL TE 81 10 10 PH 4 AR HARSHIL 25 MA HN CY MG LL TA C BL ET TI 00 11 03 2 90 30 CL 20 MO Ac ZA 37 -0 -0 .0 IN 43 CK ti NI 80 9- 1- 00 IC 90 ve DI 72 20 20 GR NE 41 09 10 PH EG 9 AR OR HC MA Y L CY E 4 MG LL C TA BL ET 00 02 02 00 60 15 CL 21 AR Ac 59 -1 -2 .0 IN 09 NO ti 10 9- 6- 00 IC 79 LD ve 54 20 20 00 10 10 PH RI 5 AR CH MA AR CY D W 49 02 02 00 40 7 EA 16 AR Ac 88 -1 -[address] 43 NO ti 40 9- 6- 00 SI 24 LD ve 60 20 20 0 DE 04 10 10 RI 0 PH CH AR AR MA D CY W OF CY NT HI AN A TR 00 11 02 02 90 30 CL 20 MO Ac AM 37 -0 -2 .0 IN 45 CK ti AD 84 9- 6- 00 IC 80 ve OL 15 20 20 GR 10 09 10 PH EG HC 5 AR OR L MA Y 50 CY E MG TA BL ET 65 01 02 00 90 30 CL 20 CLAUDIA Ac 48 -0 -2 .0 IN 83 SC ti 30 7- 6- 00 IC 10 H ve 70 20 20 AN 21 10 10 PH TO 0 AR NI MA O CY 65 01 01 00 15 5 WA 28 WE Ac 48 -0 -1 .0 LG 25 BB ti 30 4- 4- 00 RE 92 ve 70 20 20 EN 1 JI 21 10 10 S LL 0 (4 E 89 2 BU 00 12 01 01 60 30 CL 20 AR Ac PA 18 -0 -1 .0 IN 58 NO ti OP 50 2- 4- 00 IC 96 LD ve IO 41 20 20 N 56 09 10 PH RI HC 0 AR CH L MA AR SR CY D W 15 0 MG TA BL ET BU 00 11 01 01 60 10 CL 20 AR Ac TA 60 -3 -1 .0 IN 57 NO ti LB 32 0- 4- 00 IC 18 LD ve -A 54 20 20 CE 42 09 10 PH RI TA 8 AR CH MO MA AR N- CY D CA W FF 50 -3 25 -4 0 TR 00 11 12 01 90 30 CL 20 MO Ac AM 37 -0 -3 .0 IN 45 CK ti AD 84 9- 1- 00 IC 80 ve OL 15 20 20 GR 10 09 09 PH EG HC 5 AR OR L MA Y 50 CY E MG TA BL ET TO 68 06 12 04 60 30 CL 19 OC Ac PI 38 -1 -1 .0 IN 60 ON ti RA 20 9- 7- 00 IC 43 NE ve MA 13 20 20 LL TE 81 09 09 PH 4 AR HARSHIL 25 MA HN CY MG TA BL ET 00 06 12 03 60 30 CL 19 OC Ac 83 -1 -1 .0 IN 60 ON ti 21 9- 7- 00 IC 44 NE ve 01 20 20 LL 50 09 09 PH 0 AR HARSHIL MA HN CY BU 00 12 12 00 60 30 CL 20 AR Ac PA 18 -0 -1 .0 IN 58 NO ti OP 50 2- 7- 00 IC 96 LD ve IO 41 20 20 N 56 09 09 PH RI HC 0 AR CH L MA AR SR CY D W 15 0 MG TA BL ET BU 00 11 12 00 60 10 CL 20 AR Ac TA 60 -3 -1 .0 IN 57 NO ti LB 32 0- 7- 00 IC 18 LD ve -A 54 20 20 CE 42 09 09 PH RI TA 8 AR CH MO MA AR N- CY D CA W FF 50 -3 25 -4 0 65 10 12 02 90 30 CL 20 CLAUDIA Ac 48 -0 -1 .0 IN 22 SC ti 30 7- 7- 00 IC 05 H ve 70 20 20 AN 21 09 09 PH TO 0 AR NI MA O CY TI 00 11 12 01 90 30 CL 20 MO Ac ZA 18 -0 -1 .0 IN 43 CK ti NI 54 9- 7- 00 IC 90 ve DI 40 20 20 GR NE 05 09 09 PH EG 1 AR OR HC MA Y L CY E 4 MG TA BL ET LI 63 11 12 01 90 30 CL 20 MO Ac DO 48 -0 -1 .0 IN 43 CK ti DE 10 9- 7- 00 IC 91 ve RM 68 20 20 GR 70 09 09 PH EG 5% 6 AR OR MA Y PA CY E TC H 65 10 11 01 90 30 CL 20 CLAUDIA Ac 48 -0 -1 .0 IN 22 SC ti 30 7- 9- 00 IC 05 H ve 70 20 20 AN 21 09 09 PH TO 0 AR NI MA O CY TR 00 11 11 00 90 30 CL 20 MO Ac AM 37 -0 -1 .0 IN 45 CK ti AD 84 9- 9- 00 IC 80 ve OL 15 20 20 GR 10 09 09 PH EG HC 5 AR OR L MA Y 50 CY E MG TA BL ET TI 55 11 11 00 90 30 CL 20 MO Ac ZA 11 -0 -1 .0 IN 43 CK ti NI 10 9- 9- 00 IC 90 ve DI 18 20 20 GR NE 01 09 09 PH EG 5 AR OR HC MA Y L CY E 4 MG TA BL ET LI 63 11 11 00 90 30 CL 20 MO Ac DO 48 -0 -1 .0 IN 43 CK ti DE 10 9- 9- 00 IC 91 ve RM 68 20 20 GR 70 09 09 PH EG 5% 6 AR OR MA Y PA CY E TC H TO 68 06 11 03 60 30 CL 19 OC Ac PI 38 -1 -0 .0 IN 60 ON ti RA 20 9- 5- 00 IC 43 NE ve MA 13 20 20 LL TE 81 09 09 PH 4 AR HARSHIL 25 MA HN CY MG TA BL ET 00 06 11 02 60 30 CL 19 OC Ac 83 -1 -0 .0 IN 60 ON ti 21 9- 5- 00 IC 44 NE ve 01 20 20 LL 50 09 09 PH 0 AR HARSHIL MA HN CY 00 10 11 00 6. 1 RI 80 GA Ac 60 -1 -0 00 TE 46 IN ti 35 7- 5- 0 07 EY ve 46 20 20 AI 82 09 09 D MO 8 PH CH AR AE M L #3 S 93 8 ME 00 06 11 04 12 30 CL 19 AR Ac TH 60 -2 -0 0. IN 60 NO ti OC 34 3- 5- 00 IC 39 LD ve AR 48 20 20 0 BA 62 09 09 PH RI MO 1 AR CH L MA AR 75 CY D 0 W MG TA BL ET TA 00 10 11 00 10 5 CL 20 AR Ac MO 00 -2 -0 .0 IN 32 NO ti FL 40 2- 5- 00 IC 69 LD ve U 80 20 20 75 08 09 09 PH RI 5 AR CH MG MA AR CY D CA W PS UL E BU 00 09 11 01 10 25 CL 20 AR Ac TA 60 -2 -0 0. IN 13 NO ti LB 32 4- 5- 00 IC 08 LD ve -A 54 20 20 0 CE 42 09 09 PH RI TA 1 AR CH MO MA AR N- CY D CA W FF 50 -3 25 -4 0 BU 00 05 11 02 60 30 CL 19 AR Ac PA 18 -0 -0 .0 IN 76 NO ti OP 50 5- 5- 00 IC 52 LD ve IO 41 20 20 N 56 09 09 PH RI HC 0 AR CH L MA AR SR CY D W 15 0 MG TA BL ET 65 10 10 00 90 30 CL 20 CLAUDIA Ac 48 -0 -2 .0 IN 22 SC ti 30 7- 2- 00 IC 05 H ve 70 20 20 AN 21 09 09 PH TO 0 AR NI MA O CY PA 68 09 10 01 40 10 CL 20 AR Ac OM 38 -0 -2 .0 IN 00 NO ti ET 20 3- 2- 00 IC 85 LD ve MAIN 04 20 20 ZI 10 09 09 PH RI NE 1 AR CH MA AR 25 CY D W MG TA BL ET BU 00 05 10 01 60 30 CL 19 AR Ac PA 18 -0 -0 .0 IN 76 NO ti OP 50 5- 8- 00 IC 52 LD ve IO 41 20 20 N 56 09 09 PH RI HC 0 AR CH L MA AR SR CY D W 15 0 MG TA BL ET TR 65 10 10 05 18 23 EA 99 AR Ac AM 16 -2 -[address] 93 NO ti AD 20 0- 8- 00 SI 35 LD ve OL 62 20 20 0 DE 71 08 09 RI HC 1 PH CH L AR AR 50 MA D CY W MG OF TA CY BL NT ET HI AN A 00 06 10 03 12 30 CL 19 AR Ac 59 -2 -0 0. IN 60 NO ti 15 3- 8- 00 IC 39 LD ve 38 20 20 0 20 09 09 PH RI 1 AR CH MA AR CY D W 00 06 10 01 60 30 CL 19 OC Ac 83 -1 -0 .0 IN 60 ON ti 21 9- 8- 00 IC 44 NE ve 01 20 20 LL 50 09 09 PH 0 AR HARSHIL MA HN CY TO 68 06 10 02 60 30 CL 19 OC Ac PI 38 -1 -0 .0 IN 60 ON ti RA 20 9- 8- 00 IC 43 NE ve MA 13 20 20 LL TE 81 09 09 PH 4 AR HARSHIL 25 MA HN CY MG TA BL ET BU 00 09 10 00 10 25 CL 20 AR Ac TA 60 -2 -0 0. IN 13 NO ti LB 32 4- 8- 00 IC 08 LD ve -A 54 20 20 0 CE 42 09 09 PH RI TA 1 AR CH MO MA AR N- CY D CA W FF 50 -3 25 -4 0 00 09 10 00 60 15 EA 14 AR Ac 40 -2 -[address] 48 NO ti 62 9- 8- 00 SI 35 LD ve 04 20 20 DE 11 09 09 RI 0 PH CH AR AR MA D CY W OF CY NT HI AN A 00 06 09 02 12 30 CL 19 AR Ac 59 -2 -1 0. IN 60 NO ti 15 3- 0- 00 IC 39 LD ve 38 20 20 0 20 09 09 PH RI 1 AR CH MA AR CY D W BU 00 05 09 00 60 30 CL 19 AR Ac PA 18 -0 -1 .0 IN 76 NO ti OP 50 5- 0- 00 IC 52 LD ve IO 41 20 20 N 56 09 09 PH RI HC 0 AR CH L MA AR SR CY D W 15 0 MG TA BL ET 66 09 09 00 50 10 CL 19 AR Ac 99 -0 -1 .0 IN 99 NO ti 20 1- 0- 00 IC 01 LD ve 16 20 20 55 09 09 PH RI 0 AR CH MA AR CY D W TO 68 06 09 01 60 30 CL 19 OC Ac PI 38 -1 -1 .0 IN 60 ON ti RA 20 9- 0- 00 IC 43 NE ve MA 13 20 20 LL TE 81 09 09 PH 4 AR HARSHIL 25 MA HN CY MG TA BL ET 68 08 09 00 60 30 CL 19 AR Ac 18 -2 -1 .0 IN 95 NO ti 00 6- 0- 00 IC 75 LD ve 26 20 20 60 09 09 PH RI 1 AR CH MA AR CY D W TR 65 10 09 04 18 23 EA 99 AR Ac AM 16 -2 -[address] 93 NO ti AD 20 0- 0- 00 SI 35 LD ve OL 62 20 20 0 DE 71 08 09 RI HC 1 PH CH L AR AR 50 MA D CY W MG OF TA CY BL NT ET HI AN A PA 68 09 09 00 40 10 CL 20 AR Ac OM 38 -0 -1 .0 IN 00 NO ti ET 20 3- 0- 00 IC 85 LD ve MAIN 04 20 20 ZI 10 09 09 PH RI NE 1 AR CH MA AR 25 CY D W MG TA BL ET 00 06 08 00 60 30 CL 19 OC Ac 83 -1 -2 .0 IN 60 ON ti 21 9- 7- 00 IC 44 NE ve 01 20 20 LL 50 09 09 PH 0 AR HARSHIL MA HN CY LO 37 07 08 01 30 30 CL 19 AR Ac RA 20 -1 -2 .0 IN 74 NO ti TA 50 8- 7- 00 IC 03 LD ve DI 34 20 20 NE 67 09 09 PH RI 2 AR CH 10 MA AR CY D MG W TA BL ET 00 08 08 00 12 3 CL 19 GA Ac 40 -0 -1 .0 IN 84 IN ti 60 7- 3- 00 IC 49 EY ve 35 20 20 70 09 09 PH MO 5 AR CH MA AE CY L S TO 68 06 08 00 60 30 CL 19 OC Ac PI 38 -1 -1 .0 IN 60 ON ti RA 20 9- 3- 00 IC 43 NE ve MA 13 20 20 LL TE 81 09 09 PH 4 AR HARSHIL 25 MA HN CY MG TA BL ET 00 06 08 01 12 30 CL 19 AR Ac 59 -2 -1 0. IN 60 NO ti 15 3- 3- 00 IC 39 LD ve 38 20 20 0 20 09 09 PH RI 1 AR CH MA AR CY D W 65 04 08 01 90 30 CL 19 CLAUDIA Ac 48 -3 -1 .0 IN 60 SC ti 30 0- 3- 00 IC 45 H ve 70 20 20 AN 21 09 09 PH TO 0 AR NI MA O CY ME 59 07 07 00 21 6 CL 19 AR Ac TH 74 -1 -3 .0 IN 74 NO ti YL 60 8- 0- 00 IC 01 LD ve PA 00 20 20 ED 10 09 09 PH RI NI 3 AR CH SO MA AR LO CY D NE W 4 MG DO SE PK AM 00 07 07 00 30 10 CL 19 AR Ac OX 78 -1 -3 .0 IN 74 NO ti IC 12 8- 0- 00 IC 00 LD ve IL 61 20 20 LI 30 09 09 PH RI N 1 AR CH 50 MA AR 0 CY D MG W CA PS UL E PA 68 07 07 00 40 10 CL 19 AR Ac OM 38 -1 -3 .0 IN 74 NO ti ET 20 8- 0- 00 IC 02 LD ve MAIN 04 20 20 ZI 10 09 09 PH RI NE 1 AR CH MA AR 25 CY D W MG TA BL ET LO 37 07 07 00 30 30 CL 19 AR Ac RA 20 -1 -3 .0 IN 74 NO ti TA 50 8- 0- 00 IC 03 LD ve DI 34 20 20 NE 67 09 09 PH RI 2 AR CH 10 MA AR CY D MG W TA BL ET BU 00 05 07 01 60 30 EA 12 AR Ac PA 18 -0 -[address] 62 NO ti OP 50 5- 0- 00 SI 43 LD ve IO 41 20 20 DE N 56 09 09 RI HC 0 PH CH L AR AR SR MA D CY W 15 0 OF MG CY NT TA HI BL AN ET A TR 65 10 07 03 18 23 EA 99 AR Ac AM 16 -2 -[address] 93 NO ti AD 20 0- 6- 00 SI 35 LD ve OL 62 20 20 0 DE 71 08 09 RI HC 1 PH CH L AR AR 50 MA D CY W MG OF TA CY BL NT ET HI AN A TO 60 06 07 00 60 30 EA 13 OC Ac PI 50 -1 -[address] 20 ON ti RA 52 9- 2- 00 SI 76 NE ve MA 76 20 20 DE LL TE 00 09 09 6 PH HASRHIL 25 AR HN MA MG CY TA OF BL CY ET NT HI AN A 00 06 07 00 60 30 EA 13 OC Ac 52 -1 -[address] 20 ON ti 71 9- 2- 00 SI 74 NE ve 70 20 20 DE LL 40 09 09 1 PH HARSHIL AR HN MA CY OF CY NT HI AN A CY 00 06 07 00 12 84 CL 19 OC Ac AN 51 -2 -0 .0 IN 62 ON ti OC 70 6- 2- 00 IC 52 NE ve OB 03 20 20 LL AL 12 09 09 PH AM 5 AR HARSHIL IN MA HN CY 1, 00 0 MC G/ ML 65 04 07 00 90 30 CL 19 CLAUDIA Ac 48 -3 -0 .0 IN 60 SC ti 30 0- 2- 00 IC 45 H ve 70 20 20 AN 21 09 09 PH TO 0 AR NI MA O CY 00 06 07 00 12 30 CL 19 AR Ac 59 -2 -0 0. IN 60 NO ti 15 3- 2- 00 IC 39 LD ve 38 20 20 0 20 09 09 PH RI 1 AR CH MA AR CY D W CY 59 06 06 00 90 30 CL 19 AR Ac CL 74 -0 -1 .0 IN 47 NO ti OB 60 1- 8- 00 IC 30 LD ve EN 17 20 20 ZA 70 09 09 PH RI PA 6 AR CH IN MA AR E CY D 10 W MG TA BL ET TR 60 10 06 02 18 23 EA 99 AR Ac AM 50 -2 -[address] 93 NO ti AD 50 0- 8- 00 SI 35 LD ve OL 17 20 20 0 DE 10 08 09 RI HC 8 PH CH L AR AR 50 MA D CY W MG OF TA CY BL NT ET HI AN A ME 00 05 06 00 21 6 EA 12 GA Ac TH 78 -1 -[address] 78 IN ti YL 15 8- 4- 00 SI 58 EY ve PA 02 20 20 DE ED 20 09 09 MO NI 7 PH CH SO AR AE LO MA L NE CY S 4 OF MG CY NT DO HI SE AN PK A 00 04 06 01 60 30 RI 77 AR Ac 09 -0 -0 .0 TE 83 NO ti 35 3- 4- 00 94 LD ve 50 20 20 AI 20 09 09 D RI 1 PH CH AR AR M D #3 W 93 8 ME 00 09 06 02 12 30 EA 99 AR Ac TH 60 -2 -[address] 57 NO ti OC 34 2- 4- 00 SI 01 LD ve AR 48 20 20 0 DE BA 62 08 09 RI MO 1 PH CH L AR AR 75 MA D 0 CY W MG OF TA CY BL NT ET HI AN A BU 00 05 05 00 60 30 EA 12 AR Ac PA 18 -0 -[address] 62 NO ti OP 50 5- 1- 00 SI 43 LD ve IO 41 20 20 DE N 56 09 09 RI HC 0 PH CH L AR AR SR MA D CY W 15 0 OF MG CY NT TA HI BL AN ET A CE 00 05 05 00 40 10 EA 12 AR Ac PH 09 -1 -[address] 74 NO ti AL 33 4- 1- 00 SI 52 LD ve EX 14 20 20 DE IN 70 09 09 RI 5 PH CH 50 AR AR 0 MA D MG CY W CA OF PS CY UL NT E HI AN A 00 05 05 00 16 4 EA 12 CH Ac 59 -1 -[address] 74 ES ti 10 4- 1- 00 SI 37 TN ve 38 20 20 DE UT 50 09 09 1 PH MO AR CH MA AE CY L OF CY NT HI AN A HY 00 05 05 00 16 2 EA [address] 55 -1 -[address] 74 ES ti OX 50 4- 1- 00 SI 36 TN ve YZ 32 20 20 DE UT IN 30 09 09 E 4 PH MO PA AR CH M MA AE 25 CY L MG OF CY CA NT P HI AN A PE 54 04 05 00 36 30 EA 12 CLAUDIA Ac NT 09 -3 -[address] 56 SC ti 20 0- 7- 00 SI 01 H ve A 18 20 20 0 DE AN 25 98 09 09 TO 0 1 PH NI MG AR O MA CA CY PS UL OF E CY NT HI AN A 65 04 05 00 90 30 EA 12 CLAUDIA Ac 48 -3 -[address] 55 SC ti 30 0- 7- 00 SI 99 H ve 70 20 20 DE AN 21 09 09 TO 0 PH NI AR O MA CY OF CY NT HI AN A PA 00 04 05 00 60 15 EA 12 AR Ac OM 78 -3 -[address] 55 NO ti ET 11 0- 7- 00 SI 71 LD ve MAIN 83 20 20 DE ZI 01 09 09 RI NE 0 PH CH AR AR 25 MA D CY W MG OF TA CY BL NT ET HI AN A TR 00 02 04 02 10 25 RI 77 AR Ac AM 09 -0 -2 0. TE 00 NO ti AD 30 9- 3- 00 69 LD ve OL 05 20 20 0 AI 80 09 09 D RI HC 1 PH CH L AR AR 50 M D #3 W MG 93 8 TA BL ET ME 00 12 04 01 12 30 RI 76 AR Ac TH 60 -1 -2 0. TE 30 NO ti OC 34 8- 3- 00 80 LD ve AR 48 20 20 0 AI BA 62 08 09 D RI MO 1 PH CH L AR AR 75 M D 0 #3 W MG 93 8 TA BL ET EN 60 04 04 00 60 30 RI 77 AR Ac DO 95 -0 -0 .0 TE 84 NO ti CE 10 3- 9- 00 02 LD ve T 71 20 20 AI 10 27 09 09 D RI -3 0 PH CH 25 AR AR M D MG #3 W 93 TA 8 BL ET 00 04 04 00 60 30 RI 77 AR Ac 09 -0 -0 .0 TE 83 NO ti 35 3- 9- 00 94 LD ve 50 20 20 AI 20 09 09 D RI 1 PH CH AR AR M D #3 W 93 8 PA 00 03 04 01 40 10 RI 77 AR Ac OM 78 -2 -0 .0 TE 65 NO ti ET 11 3- 9- 00 63 LD ve MAIN 83 20 20 AI ZI 00 09 09 D RI NE 1 PH CH AR AR 25 M D #3 W MG 93 8 TA BL ET NY 51 03 03 00 24 6 RI [address] 67 -1 -2 0. TE 58 NO ti AT 24 8- 6- 00 95 LD ve IN 11 20 20 0 AI 70 09 09 D RI 10 4 PH CH 0, AR AR 00 M D 0 #3 W UN 93 IT 8 /M L SUGGS SP ME 49 03 03 00 60 20 RI 77 AR Ac CL 88 -0 -1 .0 TE 39 NO ti IZ 40 6- 2- 00 94 LD ve IN 03 20 20 AI E 50 09 09 D RI 25 1 PH CH AR AR MG M D #3 W TA 93 BL 8 ET TR 00 02 03 01 10 25 RI 77 AR Ac AM 09 -0 -1 0. TE 00 NO ti AD 30 9- 2- 00 69 LD ve OL 05 20 20 0 AI 80 09 09 D RI HC 1 PH CH L AR AR 50 M D #3 W MG 93 8 TA BL ET PA 00 02 03 00 40 10 RI 77 AR Ac OM 78 -2 -1 .0 TE 28 NO ti ET 11 7- 2- 00 66 LD ve MAIN 83 20 20 AI ZI 00 09 09 D RI NE 1 PH CH AR AR 25 M D #3 W MG 93 8 TA BL ET TR 00 02 02 00 10 25 RI 77 AR Ac AM 09 -0 -2 0. TE 00 NO ti AD 30 9- 6- 00 69 LD ve OL 05 20 20 0 AI 80 09 09 D RI HC 1 PH CH L AR AR 50 M D #3 W MG 93 8 TA BL ET 60 02 02 00 24 8 RI 77 AR Ac 25 -1 -2 0. TE 11 NO ti 80 6- 6- 00 28 LD ve 23 20 20 0 AI 91 09 09 D RI 6 PH CH AR AR M D #3 W 93 8 AZ 59 02 02 00 6. 5 RI 77 AR Ac IT 76 -1 -2 00 TE 11 NO ti HR 23 6- 6- 0 16 LD ve OM 06 20 20 AI YC 00 09 09 D RI IN 1 PH CH AR AR 25 M D 0 #3 W MG 93 8 TA BL ET LO 00 02 02 00 30 30 RI 77 AR Ac RA 78 -1 -2 .0 TE 11 NO ti TA 15 6- 6- 00 17 LD ve DI 07 20 20 AI NE 70 09 09 D RI 1 PH CH 10 AR AR M D MG #3 W 93 TA 8 BL ET BU 00 11 02 00 60 10 CL 18 AR Ac TA 14 -1 -1 .0 IN 35 NO ti LB 31 7- 2- 00 IC 55 LD ve -A 78 20 20 CE 70 08 09 PH RI TA 1 AR CH MO MA AR N- CY D CA W FF 50 -3 25 -4 0 00 12 01 00 40 6 RI 76 AR Ac 40 -2 -1 .0 TE 43 NO ti 60 9- 5- 00 59 LD ve 36 20 20 AI 30 08 09 D RI 1 PH CH AR AR M D #3 W 93 8 ME 00 12 01 00 12 30 RI 76 AR Ac TH 60 -1 -0 0. TE 30 NO ti OC 34 8- 1- 00 80 LD ve AR 48 20 20 0 AI BA 62 08 09 D RI MO 1 PH CH L AR AR 75 M D 0 #3 W MG 93 8 TA BL ET 00 12 01 00 60 15 RI 76 AR Ac 60 -1 -0 .0 TE 30 NO ti 35 8- 1- 00 79 LD ve 46 20 20 AI 82 08 09 D RI 8 PH CH AR AR M D #3 W 93 8 00 12 12 00 60 15 CL 18 AR Ac 60 -0 -1 .0 IN 33 NO ti 35 5- 8- 00 IC 21 LD ve 46 20 20 62 08 08 PH RI 1 AR CH MA AR CY D W PE 54 01 12 00 48 30 CL 18 CLAUDIA Ac NT 09 -1 -1 0. IN 35 SC ti 20 6- 8- 00 IC 58 H ve A 18 20 20 0 AN 25 98 08 08 PH TO 0 1 AR NI MG MA O CY CA PS UL E 65 05 12 00 90 30 CL 18 CLAUDIA Ac 48 -0 -1 .0 IN 35 SC ti 30 9- 8- 00 IC 56 H ve 70 20 20 AN 21 08 08 PH TO 0 AR NI MA O CY 00 11 12 00 15 30 CL 18 AR Ac 37 -2 -0 .0 IN 22 NO ti 84 0- 4- 00 IC 91 LD ve 18 20 20 80 08 08 PH RI 1 AR CH MA AR CY D W 24 11 12 00 12 30 EA 10 AR Ac 48 -1 -[address] 31 NO ti 60 7- 4- 00 SI 31 LD ve 60 20 20 0 DE 11 08 08 RI 0 PH CH AR AR MA D CY W OF CY NT HI AN A BU 00 11 12 00 60 15 EA 10 AR Ac TA 59 -1 -[address] 31 NO ti LB 13 7- 4- 00 SI 63 LD ve -A 36 20 20 DE CE 90 08 08 RI TA 5 PH CH MO AR AR N- MA D CA CY W FF OF 50 CY -3 NT 25 HI -4 AN 0 A TR 60 10 11 01 18 23 EA 99 AR Ac AM 50 -2 -[address] 93 NO ti AD 50 0- 0- 00 SI 35 LD ve OL 17 20 20 0 DE 10 08 08 RI HC 8 PH CH L AR AR 50 MA D CY W MG OF TA CY BL NT ET HI AN A TR 60 10 11 00 18 23 EA 99 AR Ac AM 50 -2 -[address] 93 NO ti AD 50 0- 7- 00 SI 35 LD ve OL 17 20 20 0 DE 10 08 08 RI HC 8 PH CH L AR AR 50 MA D CY W MG OF TA CY BL NT ET HI AN A PA 60 09 11 01 30 30 EA 99 AR Ac RO 50 -2 -[address] 57 NO ti XE 50 2- 7- 00 SI 00 LD ve TI 08 20 20 DE NE 30 08 08 RI 1 PH CH HC AR AR L MA D 20 CY W MG OF CY TA NT BL HI ET AN A IM 00 10 11 00 9. 30 EA 99 AR Ac IT 17 -1 -[address] 91 NO ti RE 30 8- 7- 0 SI 55 LD ve X 73 20 20 DE 50 60 08 08 RI 1 PH CH MG AR AR MA D TA CY W BL ET OF CY NT HI AN A SM 49 05 11 02 30 30 EA 97 CLAUDIA Ac 34 -0 -[address] 92 SC ti 80 8- 7- 00 SI 21 H ve TA 40 20 20 DE AN MO 71 08 08 TO N 2 PH NI B1 AR O 2 MA 1, CY 00 0 OF MC CY G NT TA HI B AN A PA 00 10 11 00 40 10 EA 10 AR Ac OC 09 -3 -[address] 07 NO ti HL 39 0- 7- 00 SI 93 LD ve OR 65 20 20 DE PE 20 08 08 RI RA 1 PH CH ZI AR AR NE MA D CY W 10 OF MG CY NT TA HI B AN A NA 00 10 11 00 60 30 EA 10 AR Ac PA 09 -2 -[address] 01 NO ti OX 30 4- 7- 00 SI 01 LD ve EN 14 20 20 DE 90 08 08 RI 50 1 PH CH 0 AR AR MG MA D CY W TA BL OF ET CY NT HI AN A ME 00 09 11 01 12 30 EA 99 AR Ac TH 60 -2 -[address] 57 NO ti OC 34 2- 7- 00 SI 01 LD ve AR 48 20 20 0 DE BA 62 08 08 RI MO 1 PH CH L AR AR 75 MA D 0 CY W MG OF TA CY BL NT ET HI AN A ME 00 10 10 00 21 6 EA 99 No Ac TH 78 -0 -[address] 77 t ti YL 15 7- 3- 00 SI 49 Av ve PA 02 20 20 DE ai ED 20 08 08 la NI 7 PH bl SO AR e LO MA NE CY 4 OF MG CY NT DO HI SE AN PK A AM 00 10 10 00 30 10 EA 99 No Ac OX 78 -0 -[address] 77 t ti IC 12 7- 3- 00 SI 48 Av ve IL 61 20 20 DE ai LI 30 08 08 la N 5 PH bl 50 AR e 0 MA MG CY CA OF PS CY UL NT E HI AN A 00 10 10 00 60 15 EA 99 No Ac 60 -0 -[address] 77 t ti 35 7- 3- 00 SI 50 Av ve 46 20 20 DE ai 82 08 08 la 8 PH bl AR e MA CY OF CY NT HI AN A TR 00 10 10 00 12 3 RI 75 GA Ac AM 09 -0 -2 .0 TE 25 IN ti AD 30 4- 3- 00 44 EY ve OL 05 20 20 AI 80 08 08 D MO HC 1 PH CH L AR AE 50 M L #3 S MG 93 8 TA BL ET CI 00 10 10 00 14 7 RI 75 GA Ac PA 17 -0 -2 .0 TE 25 IN ti OF 25 4- 3- 00 42 EY ve LO 31 20 20 AI XA 26 08 08 D MO CI 0 PH CH N AR AE HC M L L #3 S 50 93 0 8 MG TA B PA 10 07 10 02 60 15 EA 98 No Ac OM 70 -1 -[address] 75 t ti ET 20 7- 9- 00 SI 92 Av ve MAIN 00 20 20 DE ai ZI 31 08 08 la NE 0 PH bl AR e 25 MA CY MG OF TA CY BL NT ET HI AN A MU 00 09 10 00 22 5 EA 99 No Ac PI 09 -2 -[address] 57 t ti RO 31 2- 9- 00 SI 03 Av ve CI 01 20 20 DE ai N 04 08 08 la 2% 2 PH bl AR e OI MA NT CY ME NT OF CY NT HI AN A PA 60 09 10 00 30 30 EA 99 No Ac RO 50 -2 -[address] 57 t ti XE 50 2- 9- 00 SI 00 Av ve TI 08 20 20 DE ai NE 30 08 08 la 1 PH bl HC AR e L MA 20 CY MG OF CY TA NT BL HI ET AN A BU 00 09 10 00 60 15 EA 99 No Ac TA 59 -3 -[address] 67 t ti LB 13 0- 9- 00 SI 76 Av ve -A 36 20 20 DE ai CE 90 08 08 la TA 5 PH bl MO AR e N- MA CA CY FF OF 50 CY -3 NT 25 HI -4 AN 0 A ME 00 09 10 00 12 30 EA 99 No Ac TH 60 -2 -[address] 57 t ti OC 34 2- 9- 00 SI 01 Av ve AR 48 20 20 0 DE ai BA 62 08 08 la MO 1 PH bl L AR e 75 MA 0 CY MG OF TA CY BL NT ET HI AN A TR 60 08 09 00 10 12 EA 99 No Ac AM 50 -2 -[address] 24 t ti AD 50 7- 1- 00 SI 60 Av ve OL 17 20 20 0 DE ai 10 08 08 la HC 8 PH bl L AR e 50 MA CY MG OF TA CY BL NT ET HI AN A 65 05 09 02 90 30 EA 97 No Ac 48 -0 -[address] 92 t ti 30 8- 1- 00 SI 22 Av ve 70 20 20 DE ai 21 08 08 la 0 PH bl AR e MA CY OF CY NT HI AN A PA 00 09 09 00 70 17 EA 99 No Ac ED 60 -0 -[address] 30 t ti NI 35 2- 1- 00 SI 99 Av ve SO 33 20 20 DE ai NE 82 08 08 la 1 PH bl 10 AR e MA MG CY TA OF BL CY ET NT HI AN A 60 09 09 00 24 6 EA 99 No Ac 25 -0 -[address] 36 t ti 80 5- 1- 00 SI 38 Av ve 23 20 20 0 DE ai 91 08 08 la 6 PH bl AR e MA CY OF CY NT HI AN A 00 09 09 00 60 15 EA 99 No Ac 60 -0 -[address] 36 t ti 35 5- 1- 00 SI 39 Av ve 46 20 20 DE ai 82 08 08 la 8 PH bl AR e MA CY OF CY NT HI AN A AM 00 09 09 00 30 10 EA 99 No Ac OX 78 -0 -[address] 36 t ti IC 12 5- 1- 00 SI 37 Av ve IL 61 20 20 DE ai LI 30 08 08 la N 5 PH bl 50 AR e 0 MA MG CY CA OF PS CY UL NT E HI AN A PA 00 07 09 01 60 15 EA 98 No Ac OM 78 -1 -[address] 75 t ti ET 11 SI 92 Av ve MAIN 83 20 20 DE ai ZI 01 08 08 la NE 0 PH bl AR e 25 MA CY MG OF TA CY BL NT ET HI AN A 00 08 08 00 12 3 RI 74 WI Ac 40 -0 -2 .0 TE 51 CK ti 60 2- 8- 00 08 ER ve 35 20 20 AI 70 08 08 D JE 5 PH FF AR RE M Y #3 93 8 TR 60 07 08 01 40 7 EA 98 No Ac AM 50 -0 -[address] 58 t ti AD 50 2- 1- 00 SI 97 Av ve OL 17 20 20 DE ai 10 08 08 la HC 8 PH bl L AR e 50 MA CY MG OF TA CY BL NT ET HI AN A PA 00 07 08 00 60 15 EA 98 No Ac OM 78 -1 -[address] 75 t ti ET 11 SI 92 Av ve MAIN 83 20 20 DE ai ZI 01 08 08 la NE 0 PH bl AR e 25 MA CY MG OF TA CY BL NT ET HI AN A 00 07 08 00 60 15 EA 98 No Ac 59 -1 -[address] 75 t ti 10 7- 1- 00 SI 91 Av ve 34 20 20 DE ai 90 08 08 la 1 PH bl AR e MA CY OF CY NT HI AN A PE 54 01 08 02 48 30 EA 96 No Ac NT 09 -1 -[address] 38 t ti 20 6- 1- 00 SI 57 Av ve A 18 20 20 0 DE ai 25 98 08 08 la 0 1 PH bl MG AR e MA CA CY PS UL OF E CY NT HI AN A SM 49 05 08 01 30 30 EA 97 No Ac 34 -0 -[address] 92 t ti 80 8- 1- 00 SI 21 Av ve TA 40 20 20 DE ai MO 71 08 08 la N 2 PH bl B1 AR e 2 MA 1, CY 00 0 OF MC CY G NT TA HI B AN A TR 60 07 07 00 40 7 EA 98 No Ac AM 50 -0 -[address] 58 t ti AD 50 2- 7- 00 SI 97 Av ve OL 17 20 20 DE ai 10 08 08 la HC 8 PH bl L AR e 50 MA CY MG OF TA CY BL NT ET HI AN A 65 05 07 01 90 30 EA 97 No Ac 48 -0 -[address] 92 t ti 30 8- 7- 00 SI 22 Av ve 70 20 20 DE ai 21 08 08 la 0 PH bl AR e MA CY OF CY NT HI AN A PA 00 02 07 04 60 15 EA 96 No Ac OM 78 -1 -[address] 85 t ti ET 11 8- 7- 00 SI 56 Av ve MAIN 83 20 20 DE ai ZI 01 08 08 la NE 0 PH bl AR e 25 MA CY MG OF TA CY BL NT ET HI AN A ME 00 06 07 00 21 6 EA 98 No Ac TH 78 -1 -[address] 32 t ti YL 15 0- 3- 00 SI 32 Av ve PA 02 20 20 DE ai ED 20 08 08 la NI 7 PH bl SO AR e LO MA NE CY 4 OF MG CY NT DO HI SE AN PK A CE 00 06 07 00 21 7 RI 73 GA Ac PH 09 -2 -0 .0 TE 87 IN ti AL 33 2- 3- 00 54 EY ve EX 14 20 20 AI IN 70 08 08 D MO 1 PH CH 50 AR AE 0 M L MG #3 S 93 CA 8 PS UL E SM 49 05 06 00 30 30 EA 97 No Ac 34 -0 -[address] 92 t ti 80 8- 2- 00 SI 21 Av ve TA 40 20 20 DE ai MO 71 08 08 la N 2 PH bl B1 AR e 2 MA 1, CY 00 0 OF MC CY G NT TA HI B AN A 00 06 06 00 8. 2 EA 98 No Ac 59 -0 -[address] 27 t ti 10 6- 2- 0 SI 57 Av ve 34 20 20 DE ai 90 08 08 la 1 PH bl AR e MA CY OF CY NT HI AN A PA 00 02 06 03 60 15 EA 96 No Ac OM 78 -1 -[address] 85 t ti ET 11 8- 2- 00 SI 56 Av ve MAIN 83 20 20 DE ai ZI 01 08 08 la NE 0 PH bl AR e 25 MA CY MG OF TA CY BL NT ET HI AN A SM 49 01 05 02 30 30 EA 96 No Ac 34 -1 -[address] 38 t ti 80 6- 2- 00 SI 58 Av ve TA 40 20 20 DE ai MO 71 08 08 la N 2 PH bl B1 AR e 2 MA 1, CY 00 0 OF MC CY G NT TA HI B AN A 58 03 05 02 60 30 EA 97 No Ac 17 -0 -[address] 09 t ti 70 5- 2- 00 SI 93 Av ve 23 20 20 DE ai 70 08 08 la 4 PH bl AR e MA CY OF CY NT HI AN A 65 05 05 00 90 30 EA 97 No Ac 48 -0 -[address] 92 t ti 30 8- 2- 00 SI 22 Av ve 70 20 20 DE ai 21 08 08 la 0 PH bl AR e MA CY OF CY NT HI AN A PA 00 02 05 02 60 15 EA 96 No Ac OM 78 -1 -[address] 85 t ti ET 11 8- 2- 00 SI 56 Av ve MAIN 83 20 20 DE ai ZI 01 08 08 la NE 0 PH bl AR e 25 MA CY MG OF TA CY BL NT ET HI AN A ME 00 04 04 00 21 6 RI 72 No Ac TH 60 -1 -2 .0 TE 89 t ti YL 34 4- 4- 00 86 Av ve PA 59 20 20 AI ai ED 31 08 08 D la NI 5 PH bl SO AR e LO M NE #3 4 93 8 MG DO SE PK CI 00 04 04 00 14 7 RI 72 No Ac PA 17 -1 -2 .0 TE 89 t ti OF 25 4- 4- 00 85 Av ve LO 31 20 20 AI ai XA 26 08 08 D la CI 0 PH bl N AR e HC M L #3 50 93 0 8 MG TA B 00 04 04 00 8. 2 RI 72 No Ac 60 -1 -2 00 TE 89 t ti 35 4- 4- 0 84 Av ve 46 20 20 AI ai 82 08 08 D la 8 PH bl AR e M #3 93 8 65 02 04 01 90 30 EA 96 No Ac 48 -1 -[address] 85 t ti 30 8- 0- 00 SI 79 Av ve 70 20 20 DE ai 21 08 08 la 0 PH bl AR e MA CY OF CY NT HI AN A 58 03 04 01 60 30 EA 97 No Ac 17 -0 -[address] 09 t ti 70 5- 0- 00 SI 93 Av ve 23 20 20 DE ai 70 08 08 la 4 PH bl AR e MA CY OF CY NT HI AN A PE 54 01 04 01 48 30 EA 96 No Ac NT 09 -1 -[address] 38 t ti 20 6- 0- 00 SI 57 Av ve A 18 20 20 0 DE ai 25 98 08 08 la 0 1 PH bl MG AR e MA CA CY PS UL OF E CY NT HI AN A PA 00 02 04 01 60 15 EA 96 No Ac OM 78 -1 -[address] 85 t ti ET 11 8- 0- 00 SI 56 Av ve MAIN 83 20 20 DE ai ZI 01 08 08 la NE 0 PH bl AR e 25 MA CY MG OF TA CY BL NT ET HI AN A AC 00 02 04 00 6. 2 RI 72 No Ac ET 09 -2 -0 00 TE 18 t ti AM 30 6- 7- 0 94 Av ve IN 15 20 20 AI ai OP 01 08 08 D la HE 0 PH bl N- AR e CO M D #3 #3 93 8 TA BL ET BU 00 02 04 01 60 15 EA 96 No Ac TA 60 -1 -[address] 85 t ti LB 32 8- 7- 00 SI 57 Av ve -A 54 20 20 DE ai CE 42 08 08 la TA 8 PH bl MO AR e N- MA CA CY FF OF 50 CY -3 NT 25 HI -4 AN 0 A 58 03 04 00 60 30 EA 97 No Ac 17 -0 -[address] 09 t ti 70 5- 7- 00 SI 93 Av ve 23 20 20 DE ai 70 08 08 la 4 PH bl AR e MA CY OF CY NT HI AN A SM 49 01 03 01 30 30 EA 96 No Ac 34 -1 -[address] 38 t ti 80 6- 6- 00 SI 58 Av ve TA 40 20 20 DE ai MO 71 08 08 la N 2 PH bl B1 AR e 2 MA 1, CY 00 0 OF MC CY G NT TA HI B AN A LI 60 02 03 00 59 1 RI 71 No Ac ND 43 -0 -2 .0 TE 85 t ti AN 20 5- 6- 00 95 Av ve E 83 20 20 AI ai 1% 46 08 08 D la 0 PH bl SH AR e AM M PO #3 O 93 8 65 02 03 00 90 30 EA 96 No Ac 48 -1 -[address] 85 t ti 30 8- 6- 00 SI 79 Av ve 70 20 20 DE ai 21 08 08 la 0 PH bl AR e MA CY OF CY NT HI AN A PA 00 02 03 00 60 15 EA 96 No Ac OM 78 -1 -[address] 85 t ti ET 11 8- 6- 00 SI 56 Av ve MAIN 83 20 20 DE ai ZI 01 08 08 la NE 0 PH bl AR e 25 MA CY MG OF TA CY BL NT ET HI AN A 00 02 03 00 60 15 EA 96 No Ac 59 -1 -[address] 85 t ti 13 8- 6- 00 SI 57 Av ve 41 20 20 DE ai 60 08 08 la 1 PH bl AR e MA CY OF CY NT HI AN A ME 00 02 03 00 21 6 EA 96 No Ac TH 78 -1 -[address] 85 t ti YL 15 8- 6- 00 SI 54 Av ve PA 02 20 20 DE ai ED 20 08 08 la NI 7 PH bl SO AR e LO MA NE CY 4 OF MG CY NT DO HI SE AN PK A AZ 00 02 03 00 6. 5 EA 96 No Ac IT 09 -1 -[address] 85 t ti HR 37 8- 6- 0 SI 55 Av ve OM 14 20 20 DE ai YC 61 08 08 la IN 8 PH bl AR e 25 MA 0 CY MG OF TA CY BL NT ET HI AN A 00 01 03 00 10 2 RI 71 No Ac 40 -1 -2 .0 TE 46 t ti 60 2- 5- 00 83 Av ve 35 20 20 AI ai 70 08 08 D la 5 PH bl AR e M #3 93 8 65 01 03 00 90 30 CL 16 No Ac 48 -1 -2 .0 IN 28 t ti 30 6- 5- 00 IC 43 Av ve 70 20 20 ai 21 08 08 PH la 0 AR bl MA e CY PE 54 01 03 00 48 30 EA 96 No Ac NT 09 -1 -[address] 38 t ti 20 6- 5- 00 SI 57 Av ve A 18 20 20 0 DE ai 25 98 08 08 la 0 1 PH bl MG AR e MA CA CY PS UL OF E CY NT HI AN A NI 00 01 03 00 20 10 RI 71 No Ac TR 37 -1 -2 .0 TE 46 t ti OF 83 2- 5- 00 82 Av ve UR 42 20 20 AI ai AN 20 08 08 D la TO 1 PH bl IN AR e M MO #3 NO 93 -M 8 CR 10 0 MG SM 49 01 03 00 30 30 EA 96 No Ac 34 -1 -[address] 38 t ti 80 6- 5- 00 SI 58 Av ve TA 40 20 20 DE ai MO 71 08 08 la N 2 PH bl B1 AR e 2 MA 1, CY 00 0 OF MC CY G NT TA HI B AN A Vital Signs 04-05-2013 22:43 Name Value Interpretat Reference Comment ion Range BP 49 mm[Hg] Diastolic BP Systolic 95 mm[Hg] Heart 75 /min Rate/Pulse O2% 98 % Respiratory 20 /min Rate 04-05-2013 21:14 Name Value Interpretat Reference Comment ion Range BP 67 mm[Hg] Diastolic BP Systolic 94 mm[Hg] Heart 75 /min Rate/Pulse O2% 99 % Respiratory 16 /min Rate 03-21-2013 20:01 Name Value Interpretat Reference Comment ion Range Body 99.0 [degF] Temperature BP 49 mm[Hg] Diastolic BP Systolic 87 mm[Hg] Heart 76 /min Rate/Pulse O2% 97 % Respiratory 20 /min Rate 03-21-2013 18:50 Name Value Interpretat Reference Comment ion Range BP 55 mm[Hg] Diastolic BP Systolic 98 mm[Hg] Heart 77 /min Rate/Pulse O2% 92 % Respiratory 16 /min Rate 01-28-2013 18:59 Name Value Interpretat Reference Comment ion Range BP 83 mm[Hg] Diastolic BP Systolic 145 mm[Hg] Heart 74 /min Rate/Pulse O2% 99 % Respiratory 16 /min Rate 01-28-2013 18:58 Name Value Interpretat Reference Comment ion Range BP 83 mm[Hg] Diastolic BP Systolic 145 mm[Hg] Heart 74 /min Rate/Pulse O2% 99 % Respiratory 16 /min Rate 01-02-2013 17:10 Name Value Interpretat Reference Comment ion Range Body 97.3 [degF] Temperature BP 86 mm[Hg] Diastolic BP Systolic 117 mm[Hg] Heart 80 /min Rate/Pulse O2% 97 % Respiratory 18 /min Rate 10-11-2012 21:14 Name Value Interpretat Reference Comment ion Range BP 76 mm[Hg] Diastolic BP Systolic 114 mm[Hg] Heart 75 /min Rate/Pulse O2% 96 % Respiratory 18 /min Rate 10-11-2012 20:21 Name Value Interpretat Reference Comment ion Range BP 47 mm[Hg] Diastolic BP Systolic 93 mm[Hg] Heart 73 /min Rate/Pulse O2% 98 % Respiratory 16 /min Rate 09-04-2012 16:39 Name Value Interpretat Reference Comment ion Range BP 67 mm[Hg] Diastolic BP Systolic 96 mm[Hg] Heart 77 /min Rate/Pulse O2% 94 % Respiratory 20 /min Rate 09-04-2012 16:38 Name Value Interpretat Reference Comment ion Range BP 67 mm[Hg] Diastolic BP Systolic 96 mm[Hg] Heart 77 /min Rate/Pulse O2% 94 % Respiratory 20 /min Rate 07-23-2012 18:45 Name Value Interpretat Reference Comment ion Range BP 76 mm[Hg] Diastolic BP Systolic 119 mm[Hg] Heart 105 /min Rate/Pulse O2% 98 % Respiratory 20 /min Rate 07-23-2012 17:13 Name Value Interpretat Reference Comment ion Range BP 66 mm[Hg] Diastolic BP Systolic 103 mm[Hg] Heart 112 /min Rate/Pulse O2% 98 % Respiratory 20 /min Rate 07-18-2012 22:24 Name Value Interpretat Reference Comment ion Range BP 65 mm[Hg] Diastolic BP Systolic 99 mm[Hg] Heart 99 /min Rate/Pulse O2% 99 % Respiratory 18 /min Rate 07-18-2012 22:08 Name Value Interpretat Reference Comment ion Range BP 60 mm[Hg] Diastolic BP Systolic 111 mm[Hg] Heart 107 /min Rate/Pulse O2% 99 % Respiratory 18 /min Rate 07-12-2012 16:42 Name Value Interpretat Reference Comment ion Range Body 97.6 [degF] Temperature BP 50 mm[Hg] Diastolic BP Systolic 91 mm[Hg] Heart 100 /min Rate/Pulse O2% 96 % Respiratory 18 /min Rate 07-12-2012 16:41 Name Value Interpretat Reference Comment ion Range Body 97.6 [degF] Temperature 07-12-2012 15:01 Name Value Interpretat Reference Comment ion Range BP 69 mm[Hg] Diastolic BP Systolic 115 mm[Hg] Heart 102 /min Rate/Pulse O2% 98 % Respiratory 18 /min Rate 06-30-2012 22:57 Name Value Interpretat Reference Comment ion Range Body 99.0 [degF] Temperature BP 58 mm[Hg] Diastolic BP Systolic 105 mm[Hg] Heart 91 /min Rate/Pulse O2% 98 % Respiratory 20 /min Rate 06-30-2012 21:26 Name Value Interpretat Reference Comment ion Range BP 64 mm[Hg] Diastolic BP Systolic 107 mm[Hg] Heart 97 /min Rate/Pulse O2% 99 % Respiratory 20 /min Rate Results Labs Lab Lab Date Result Refere Interp Status Commen Order Detail nces retati t Range on Lipase SerPl-cCnc (08-24-2016 16:44) Lipase 27 U/L 19-63 complet SerPl-c 017 ed Cnc 16:44 URINALYSIS/COMPLETE (04-05-2013 21:45) URINE YELLOW YELLOW complet COLOR 014 ed 21:45 URINE CLEAR CLEAR complet APPEARA 014 ed NCE 21:45 URINE NEGATIV NEG complet GLUCOSE 014 E ed - 21:45 DIPSTIC K URINE NEGATIV NEG complet BILIRUB 014 E ed IN - 21:45 DIPSTIC K URINE NEGATIV NEG complet KETONE 014 E mg/dL ed 21:45 URINE Less 1.005-1 complet SPECIFI 014 than or .030 ed C 21:45 equal GRAVITY to 1.005 URINE TRACE-I NEG complet BLOOD 014 NTACT ed 21:45 URINE 6.0 UNK 5.0-8.5 complet PH 014 ed 21:45 URINE NEGATIV NEG complet PROTEIN 014 E mg/dL ed - 21:45 DIPSTIC K URINE 0.2 NEG complet UROBILI 014 E.U./dL ed NOGEN - 21:45 DIPSTIC K URINE NEGATIV NEG complet NITRATE 014 E ed - 21:45 DIPSTIC K URINE NEGATIV NEG complet LEUK 014 E ed ESTERAS 21:45 E URINE 3-5 0 complet RBC 014 rbc/hpf ed 21:45 URINE OCC 0-5 complet SQUAMOU 014 #/hpf ed S CELLS 21:45 COMPREHENSIVE METABOLIC PANEL (03-21-2013 19:15) Glucose 78 74-106 complet 014 mg/dL ed Bld-mCn 19:15 c BUN 6 mg/dL 7-18 complet Bld-mCn 014 ed c 19:15 Creat 0.7 0.6-1.0 complet SerPl-m 014 mg/dL ed Cnc 19:15 Creat 89 50-200 complet Cl 014 ML/MIN ed predict 19:15 ed SerPl C-G-vRa te GFR/BSA 93 59- complet .pred 014 ML/MIN ed SerPl 19:15 Schwart z-vRate Sodium 144 136-145 complet SerPl-s 014 mmoL/L ed Cnc 19:15 Potassi 4.3 3.5-5.1 complet um 014 mmoL/L ed SerPl-s 19:15 Cnc Chlorid 108 98-107 complet e 014 mmoL/L ed SerPl-s 19:15 Cnc CO2 29 21.0-32 complet SerPl-s 014 mmoL/L .0 ed Cnc 19:15 Calcium 8.7 8.5-10. complet 014 mg/dL 1 ed SerPl-m 19:15 Cnc Prot 6.2 6.4-8.2 complet SerPl-m 014 gm/dL ed Cnc 19:15 Albumin 3.6 3.4-5.0 complet 014 gm/dL ed SerPl-m 19:15 Cnc Globuli 2.6 1.3-3.2 complet n 014 gm/dL ed Ser-mCn 19:15 c Albumin 1.4 UNK 1.1-1.8 complet /Glob 014 ed SerPl-m 19:15 Rto Bilirub 0.3 0.2-1.0 complet 014 mg/dL ed SerPl-m 19:15 Cnc AST 13 U/L 15-37 complet SerPl-c 014 ed Cnc 19:15 ALT 26 U/L 30-65 complet SerPl-c 014 ed Cnc 19:15 ALP 127 U/L 50-136 complet SerPl-c 014 ed Cnc 19:15 CBC with AUTO DIFF (03-21-2013 19:15) WBC # 03-21- 5.4 4.8-10. complet Bld 014 K/MM3 8 ed Auto 19:15 RBC # 03-21- 3.74 4.2-5.4 complet Bld 014 M/mm3 ed Auto 19:15 Hgb 11.5 12.2-16 complet Bld-mCn 014 g/dL .2 ed c 19:15 Hct Fr 36.5 % 37.0-47 complet Bld 014 .0 ed 19:15 MCV RBC 97.6 fl 82.2-97 complet 014 .8 ed 19:15 MCH RBC 30.7 pg 27-31.2 complet Qn 014 ed Auto 19:15 MEAN 31.5 31.8-35 complet CORPUSC 014 g/dl .4 ed ULAR 19:15 HGB CONC RDW RBC 14.4 % 11.5-17 complet Auto 014 .5 ed 19:15 Platele 270 142-424 complet t Bld 014 K/mm3 ed Ql 19:15 Manual MEAN 8.2 fl 7.4-10. complet PLATELE 014 4 ed T 19:15 VOLUME Granulo 60.3 % 37.0-80 complet cytes 014 .0 ed Fr Bld 19:15 Auto LYMPH % 29.5 % 10-50.0 complet 014 ed 19:15 Monocyt 3.8 % 1.7-9.3 complet es Fr 014 ed Bld 19:15 Auto Eosinop 5.9 % 0.1-12. complet hil Fr 014 0 ed Bld 19:15 Auto Basophi 03-21-2 0.6 % 0.1-2.0 complet ls Fr 014 ed Bld 19:15 Auto Granulo 03-21-2 3.2 1.8-7.8 complet cytes # 014 K/mm3 ed Bld 19:15 Auto Lymphoc 03-21-2 1.6 0.7-4.5 complet ytes Fr 014 K/mm3 ed Bld 19:15 Auto Monocyt 03-21-2 0.2 0.1-1.0 complet es # 014 K/mm3 ed Bld 19:15 Auto Eosinop 03-21-2 0.3 0.0-0.4 complet hil # 014 K/mm3 ed Bld 19:15 Auto Basophi 03-21-2 0.0 0-0.2 complet ls # 014 K/MM3 ed Bld 19:15 Auto URINALYSIS/COMPLETE (03-21-2013 19:15) URINE 03-21-2 YELLOW YELLOW complet COLOR 014 ed 19:15 URINE 2 CLEAR CLEAR complet APPEARA 014 ed NCE 19:15 URINE 2 NEGATIV NEG complet GLUCOSE 014 E ed - 19:15 DIPSTIC K URINE NEGATIV NEG complet BILIRUB 014 E ed IN - 19:15 DIPSTIC K URINE NEGATIV NEG complet KETONE 014 E mg/dL ed 19:15 URINE 03-21- 1.020 1.005-1 complet SPECIFI 014 UNK .030 ed C 19:15 GRAVITY URINE 03-21-2 2+ NEG complet BLOOD 014 ed 19:15 URINE 03-21-2 6.0 UNK 5.0-8.5 complet PH 014 ed 19:15 URINE NEGATIV NEG complet PROTEIN 014 E mg/dL ed - 19:15 DIPSTIC K URINE 03-21-2 0.2 NEG complet UROBILI 014 E.U./dL ed NOGEN - 19:15 DIPSTIC K URINE 03-21-2 NEGATIV NEG complet NITRATE 014 E ed - 19:15 DIPSTIC K URINE 03-21-2 NEGATIV NEG complet LEUK 014 E ed ESTERAS 19:15 E URINE 03-21-2 5-10 0 complet RBC 014 rbc/hpf ed 19:15 URINE 3-5 O complet WBC 014 wbc/hpf ed 19:15 URINE 3-5 0-5 complet SQUAMOU 014 #/hpf ed S CELLS 19:15 URINE TRACE NONE complet AMORPH 014 ed SEDIMEN 19:15 T COMPREHENSIVE METABOLIC PANEL (10-11-2012 20:26) Glucose 95 74-106 complet 013 mg/dL ed Bld-mCn 20:26 c BUN 18 7-18 complet Bld-mCn 013 mg/dL ed c 20:26 Creat 1.0 0.6-1.0 complet SerPl-m 013 mg/dL ed Cnc 20:26 GFR 62 59- complet (ESTIMA 013 ML/MIN ed ANGELA) 20:26 Sodium 10-11- 144 136-145 complet SerPl-s 013 mmoL/L ed Cnc 20:26 Potassi 3.4 3.5-5.1 complet um 013 mmoL/L ed SerPl-s 20:26 Cnc Chlorid 105 98-107 complet e 013 mmoL/L ed SerPl-s 20:26 Cnc CO2 28 21.0-32 complet SerPl-s 013 mmoL/L .0 ed Cnc 20:26 Calcium 10-11-2 9.1 8.5-10. complet 013 mg/dL 1 ed SerPl-m 20:26 Cnc Prot 10-11-2 8.3 6.4-8.2 complet SerPl-m 013 gm/dL ed Cnc 20:26 Albumin 10-11-2 4.3 3.4-5.0 complet 013 gm/dL ed SerPl-m 20:26 Cnc Globuli 10-11-2 4.0 1.3-3.2 complet n 013 gm/dL ed Ser-mCn 20:26 c Albumin 10-11-2 1.1 UNK 1.1-1.8 complet /Glob 013 ed SerPl-m 20:26 Rto Bilirub 0.3 0.2-1.0 complet 013 mg/dL ed SerPl-m 20:26 Cnc AST 2 18 U/L 15-37 complet SerPl-c 013 ed Cnc 20:26 ALT 08-03-2 60 U/L 30-65 complet SerPl-c 013 ed Cnc 20:26 ALP 08-03-2 175 U/L 50-136 complet SerPl-c 013 ed Cnc 20:26 Acetamin SerPl-mCnc (10-11-2012 20:26) Acetami 08-03-2 13.2 10-30 complet n 013 ug/mL ed SerPl-m 20:26 Cnc Salicylates SerPl-mCnc (10-11-2012 20:26) Salicyl -03-2 4.8 2.8-20. complet ates 013 mg/dL 0 ed SerPl-m 20:26 Cnc Ethanol Bld-mCnc (10-11-2012 20:26) Ethanol 08-03-2 0 mg/dL 0-99 complet 013 ed Bld-mCn 20:26 c CBC with AUTO DIFF (10-11-2012 20:26) WBC # 08-03-2 7.0 4.8-10. complet Bld 013 K/MM3 8 ed Auto 20:26 RBC # 08-03-2 4.39 4.2-5.4 complet Bld 013 M/mm3 ed Auto 20:26 Hgb 08-03-2 12.5 12.2-16 complet Bld-mCn 013 g/dL .2 ed c 20:26 Hct Fr 03-2 41.1 % 37.0-47 complet Bld 013 .0 ed 20:26 MCV RBC 08-03-2 93.6 fl 82.2-97 complet 013 .8 ed 20:26 MCH RBC 08-03-2 28.6 pg 27-31.2 complet Qn 013 ed Auto 20:26 MEAN 08-03-2 30.6 31.8-35 complet CORPUSC 013 g/dl .4 ed ULAR 20:26 HGB CONC RDW RBC 08-03-2 17.0 % 11.5-17 complet Auto 013 .5 ed 20:26 Platele 08-03-2 386 142-424 complet t Bld 013 K/mm3 ed Ql 20:26 Manual MEAN 08-03-2 7.7 fl 7.4-10. complet PLATELE 013 4 ed T 20:26 VOLUME Granulo -03-2 60.9 % 37.0-80 complet cytes 013 .0 ed Fr Bld 20:26 Auto LYMPH % 08-03-2 27.2 % 10-50.0 complet 013 ed 20:26 Monocyt 08-03-2 4.4 % 1.7-9.3 complet es Fr 013 ed Bld 20:26 Auto Eosinop 08-03-2 6.7 % 0.1-12. complet hil Fr 013 0 ed Bld 20:26 Auto Basophi 08-03-2 0.9 % 0.1-2.0 complet ls Fr 013 ed Bld 20:26 Auto Granulo 08-03-2 4.3 1.8-7.8 complet cytes # 013 K/mm3 ed Bld 20:26 Auto Lymphoc 08-03-2 1.9 0.7-4.5 complet ytes Fr 013 K/mm3 ed Bld 20:26 Auto Monocyt 08-03-2 0.3 0.1-1.0 complet es # 013 K/mm3 ed Bld 20:26 Auto Eosinop 08-03-2 0.5 0.0-0.4 complet hil # 013 K/mm3 ed Bld 20:26 Auto Basophi 08-03-2 0.1 0-0.2 complet ls # 013 K/MM3 ed Bld 20:26 Auto URINALYSIS/COMPLETE (09-04-2012 15:14) URINE 06-27-2 YELLOW YELLOW complet COLOR 013 ed 15:14 URINE 06-27-2 CLEAR CLEAR complet APPEARA 013 ed NCE 15:14 URINE 06-27-2 NEGATIV NEG complet GLUCOSE 013 E ed - 15:14 DIPSTIC K URINE 06-27-2 NEGATIV NEG complet BILIRUB 013 E ed IN - 15:14 DIPSTIC K URINE 06-27-2 NEGATIV NEG complet KETONE 013 E mg/dL ed 15:14 URINE 06-27-2 1.025 1.005-1 complet SPECIFI 013 UNK .030 ed C 15:14 GRAVITY URINE 06-27-2 2+ NEG complet BLOOD 013 ed 15:14 URINE 06-27-2 6.0 UNK 5.0-8.5 complet PH 013 ed 15:14 URINE 06-27-2 NEGATIV NEG complet PROTEIN 013 E mg/dL ed - 15:14 DIPSTIC K URINE 06-27-2 0.2 NEG complet UROBILI 013 E.U./dL ed NOGEN - 15:14 DIPSTIC K URINE 09-04-2 NEGATIV NEG complet NITRATE 013 E ed - 15:14 DIPSTIC K URINE 09-04-2 NEGATIV NEG complet LEUK 013 E ed ESTERAS 15:14 E URINE 09-04-2 3-5 0 complet RBC 013 rbc/hpf ed 15:14 URINE 09-04-2 5-10 0-5 complet SQUAMOU 013 #/hpf ed S CELLS 15:14 URINE 09-04-2 TRACE O complet BACTERI 013 ed A 15:14 BASIC METABOLIC PANEL (07-12-2012 15:55) Glucose 07-12-2 100 74-106 complet 013 mg/dL ed Bld-mCn 15:55 c BUN 07-12-2 12 7-18 complet Bld-mCn 013 mg/dL ed c 15:55 Creat 07-12-2 0.7 0.6-1.0 complet SerPl-m 013 mg/dL ed Cnc 15:55 ESTIMAT 07-12-2 85 50-200 complet ED 013 ML/MIN ed CREATIN 15:55 INE CLEARAN CE GFR 07-12-2 93 59- complet (ESTIMA 013 ML/MIN ed ANGELA) 15:55 Sodium 04-2 138 136-145 complet SerPl-s 013 mmoL/L ed Cnc 15:55 Potassi 04-2 3.7 3.5-5.1 complet um 013 mmoL/L ed SerPl-s 15:55 Cnc Chlorid 07-12-2 103 98-107 complet e 013 mmoL/L ed SerPl-s 15:55 Cnc CO2 04-2 31 21.0-32 complet SerPl-s 013 mmoL/L .0 ed Cnc 15:55 Calcium -04-2 8.9 8.5-10. complet 013 mg/dL 1 ed SerPl-m 15:55 Cnc CBC with AUTO DIFF (07-12-2012 15:55) WBC # 05-04-2 6.3 4.8-10. complet Bld 013 K/MM3 8 ed Auto 15:55 RBC # 05-04-2 3.39 4.2-5.4 complet Bld 013 M/mm3 ed Auto 15:55 Hgb -04-2 9.6 12.2-16 complet Bld-mCn 013 g/dL .2 ed c 15:55 Hct Fr 05-04-2 30.8 % 37.0-47 complet Bld 013 .0 ed 15:55 MCV RBC 05-04-2 90.7 fl 82.2-97 complet 013 .8 ed 15:55 MCH RBC 05-04-2 28.3 pg 27-31.2 complet Qn 013 ed Auto 15:55 MEAN 05-04-2 31.2 31.8-35 complet CORPUSC 013 g/dl .4 ed ULAR 15:55 HGB CONC RDW RBC 05-04-2 13.8 % 11.5-17 complet Auto 013 .5 ed 15:55 Platele 05-04-2 412 142-424 complet t Bld 013 K/mm3 ed Ql 15:55 Manual MEAN 05-04-2 8.9 fl 7.4-10. complet PLATELE 013 4 ed T 15:55 VOLUME Granulo 05-04-2 75.1 % 37.0-80 complet cytes 013 .0 ed Fr Bld 15:55 Auto LYMPH % 05-04-2 16.2 % 10-50.0 complet 013 ed 15:55 Monocyt 05-04-2 6.2 % 1.7-9.3 complet es Fr 013 ed Bld 15:55 Auto Eosinop 05-04-2 2.2 % 0.1-12. complet hil Fr 013 0 ed Bld 15:55 Auto Basophi 05-04-2 0.4 % 0.1-2.0 complet ls Fr 013 ed Bld 15:55 Auto Granulo 05-04-2 4.7 1.8-7.8 complet cytes # 013 K/mm3 ed Bld 15:55 Auto Lymphoc 05-04-2 1.0 0.7-4.5 complet ytes Fr 013 K/mm3 ed Bld 15:55 Auto Monocyt 05-04-2 0.4 0.1-1.0 complet es # 013 K/mm3 ed Bld 15:55 Auto Eosinop 05-04-2 0.1 0.0-0.4 complet hil # 013 K/mm3 ed Bld 15:55 Auto Basophi 05-04-2 0.0 0-0.2 complet ls # 013 K/MM3 ed Bld 15:55 Auto URINALYSIS/COMPLETE (06-30-2012:25) URINE 06-30-2 YELLOW YELLOW complet COLOR 013 ed 21:25 URINE 22-2 CLEAR CLEAR complet APPEARA 013 ed NCE 21:25 URINE 22-2 NEGATIV NEG complet GLUCOSE 013 E ed - 21:25 DIPSTIC K URINE 22-2 NEGATIV NEG complet BILIRUB 013 E ed IN - 21:25 DIPSTIC K URINE 22-2 NEGATIV NEG complet KETONE 013 E mg/dL ed 21:25 URINE 06-30-2 1.025 1.005-1 complet SPECIFI 013 UNK .030 ed C 21:25 GRAVITY URINE 06-30-2 2+ NEG complet BLOOD 013 ed 21:25 URINE 06-30-2 6.0 UNK 5.0-8.5 complet PH 013 ed 21:25 URINE 06-30-2 NEGATIV NEG complet PROTEIN 013 E mg/dL ed - 21:25 DIPSTIC K URINE 06-30-2 0.2 NEG complet UROBILI 013 E.U./dL ed NOGEN - 21:25 DIPSTIC K URINE 06-30-2 NEGATIV NEG complet NITRATE 013 E ed - 21:25 DIPSTIC K URINE 22-2 NEGATIV NEG complet LEUK 013 E ed ESTERAS 21:25 E URINE 06-30-2 3-5 0 complet RBC 013 rbc/hpf ed 21:25 URINE 06-30-2 OCC O complet WBC 013 wbc/hpf ed 21:25 URINE 06-30-2 OCC 0-5 complet SQUAMOU 013 #/hpf ed S CELLS 21:25 URINE 06-30-2 TRACE O complet BACTERI 013 ed A 21:25 URINE 06-30-2 1+ OCC complet MUCUS 013 ed 21:25 COMPREHENSIVE METABOLIC PANEL (06-30-2012 21:15) Glucose 06-30-2 92 74-106 complet 013 mg/dL ed Bld-mCn 21:15 c BUN 06-30-2 11 7-18 complet Bld-mCn 013 mg/dL ed c 21:15 Creat 06-30-2 0.8 0.6-1.0 complet SerPl-m 013 mg/dL ed Cnc 21:15 GFR 06-30-2 80 59- complet (ESTIMA 013 ML/MIN ed ANGELA) 21:15 Sodium 06-30-2 139 136-145 complet SerPl-s 013 mmoL/L ed Cnc 21:15 Potassi 3.5 3.5-5.1 complet um 013 mmoL/L ed SerPl-s 21:15 Cnc Chlorid 102 98-107 complet e 013 mmoL/L ed SerPl-s 21:15 Cnc CO2 29 21.0-32 complet SerPl-s 013 mmoL/L .0 ed Cnc 21:15 Calcium 2 9.4 8.5-10. complet 013 mg/dL 1 ed SerPl-m 21:15 Cnc Prot 8.0 6.4-8.2 complet SerPl-m 013 gm/dL ed Cnc 21:15 Albumin 06-30- 3.8 3.4-5.0 complet 013 gm/dL ed SerPl-m 21:15 Cnc Globuli 4.2 1.3-3.2 complet n 013 gm/dL ed Ser-mCn 21:15 c Albumin 2 0.9 UNK 1.1-1.8 complet /Glob 013 ed SerPl-m 21:15 Rto Bilirub 2 0.1 0.2-1.0 complet 013 mg/dL ed SerPl-m 21:15 Cnc AST 06-30-2 11 U/L 15-37 complet SerPl-c 013 ed Cnc 21:15 ALT 06-30-2 22 U/L 30-65 complet SerPl-c 013 ed Cnc 21:15 ALP 06-30-2 172 U/L 50-136 complet SerPl-c 013 ed Cnc 21:15 Amylase SerPl-cCnc (06-30-2012 21:15) Amylase 06-30-2 80 U/L 25-115 complet 013 ed SerPl-c 21:15 Cnc LIPASE (06-30-2012 21:15) LIPASE 06-30-2 121 U/L 73-393 complet 013 ed 21:15 CBC with AUTO DIFF (06-30-2012 21:15) WBC # 22-2 7.6 4.8-10. complet Bld 013 K/MM3 8 ed Auto 21:15 RBC # 22-2 4.02 4.2-5.4 complet Bld 013 M/mm3 ed Auto 21:15 Hgb -22-2 11.4 12.2-16 complet Bld-mCn 013 g/dL .2 ed c 21:15 Hct Fr 06-30-2 37.4 % 37.0-47 complet Bld 013 .0 ed 21:15 MCV RBC -22-2 93.1 fl 82.2-97 complet 013 .8 ed 21:15 MCH RBC 06-30-2 28.4 pg 27-31.2 complet Qn 013 ed Auto 21:15 MEAN 06-30-2 30.5 31.8-35 complet CORPUSC 013 g/dl .4 ed ULAR 21:15 HGB CONC RDW RBC 06-30-2 14.0 % 11.5-17 complet Auto 013 .5 ed 21:15 Platele -22-2 392 142-424 complet t Bld 013 K/mm3 ed Ql 21:15 Manual MEAN 06-30-2 7.8 fl 7.4-10. complet PLATELE 013 4 ed T 21:15 VOLUME Granulo -22-2 72.7 % 37.0-80 complet cytes 013 .0 ed Fr Bld 21:15 Auto LYMPH % 04-22-2 18.0 % 10-50.0 complet 013 ed 21:15 Monocyt 04-22-2 5.8 % 1.7-9.3 complet es Fr 013 ed Bld 21:15 Auto Eosinop 04-22-2 3.1 % 0.1-12. complet hil Fr 013 0 ed Bld 21:15 Auto Basophi 04-22-2 0.4 % 0.1-2.0 complet ls Fr 013 ed Bld 21:15 Auto Granulo 04-22-2 5.5 1.8-7.8 complet cytes # 013 K/mm3 ed Bld 21:15 Auto Lymphoc 04-22-2 1.4 0.7-4.5 complet ytes Fr 013 K/mm3 ed Bld 21:15 Auto Monocyt 04-22-2 0.4 0.1-1.0 complet es # 013 K/mm3 ed Bld 21:15 Auto Eosinop 04-22-2 0.2 0.0-0.4 complet hil # 013 K/mm3 ed Bld 21:15 Auto Basophi 04-22-2 0.0 0-0.2 complet ls # 013 K/MM3 ed Bld 21:15 Auto Procedures Procedure DOS Code Location Performer Comment RADEX ABD 02877 RADIOLOGY KLEIMEYER COMPL 7 AQT ABD ASSOCIATE W/S/E/D S OF [place] [address] [place] [address] RADIOLOGY TOM ABDOMEN & 7 PELVIS ASSOCIATE W/[place] [address] RADIOLOGY JIMENEZ ABDOMEN & 7 PELVIS ASSOCIATE W/[place] [address] RADIOLOGY TYRELL ABDOMEN & 7 PELVIS ASSOCIATE W/CONTRAS S OF NOTH T MATERIAL COLLECTIO 14791 [facility] N VENOUS 7 SH[place]ON SHARR[place] BLOOD FT FT VENIPUNCT KARINE [place] URE ALPHA-1-A 77557 [facility] NTITRYPSI 7 [place]ON [place] [address] [facility] IMAGING [address] ATTENUATI HEALTHCAR HEALTHCAR ON SKULL E EDGE E EDGE BASE MID-THIGH ADMN SET A7003 YOUR YOUR SM VOL 7 PHARMACY [facility] PNEUMAT NEBULIZR DISPBL TRANSITIO [address] MANAGE SRVC 7 PHYSICIAN DAY S DISCHARGE SBSQ [id number]/DAY 25 PHYSICIAN MINUTES S HOSPITAL [address] [facility] DIS[facility] 7 SHARRON DAY MANAGEMEN PHYSICIAN T > 30 S MIN SBSQ [id number] CARE/DAY 25 PHYSICIAN MINUTES S SBSQ [address]/DAY 35 [facility]YS[facility]UT[facility] [address]/DAY 35 PHYSICIAN MINUTES S RADIOLOGI 98058 RADIOLOGY [place] Jones EXAMINATI ASSOCIATE ON CHEST S OF [facility] [place] CRITICAL [address] [place] [address] SHARRON ILL/INJUR ED PHYSICIAN PATIENT S INIT 30-74 MIN CRITICAL 478[address] [facility] 7 SHARRON ILL/INJUR ED PHYSICIAN PATIENT S INIT 30-74 MIN SBSQ 39365 [facility] 7 SHARRON CARE/DAY 35 PHYSICIAN MINUTES S SBSQ 25101 [facility] 7 SHARRON CARE/DAY 35 PHYSICIAN MINUTES S CRITICAL 17940 [facility] 7 SH[facility]ON ILL/INJUR ED PHYSICIAN PATIENT S INIT 30-74 MIN CRITICAL 41601 [facility] 7 SHARRON ILL/INJUR ED PHYSICIAN PATIENT S INIT 30-[address] [place] [address] RADIOLOGY [place] ANGIOGRAP 7 III HY CHEST ASSOCIATE W/CONTRAS S OF [facility] T/NONCONT RAST RADIOLOGI 00184 RADIOLOGY BRANDSER C 7 EXAMINATI ASSOCIATE ON CHEST S OF [facility] S[place] FRONTAL ECG [address] [facility] ROUTINE 7 [place] ECG W/LEAST PHYSICIAN 12 LDS S EKG I&R ONLY LEVEL [facility] [address] [facility] [place] [address] ANESTHESI WEN DX/THER 7 A GROUP SBST PRACTICE INTRLMNR CRV/THRC W/O IMG GDN RPR RECRT 24278 [facility] 7 [place] INCAL/VNT HERNIA PHYSICIAN REDUCIBLE S IMPLANT 03574 NIRUJO MESH OPN 7 [place] HERNIA RPR/DEBRI PHYSICIAN SUSU S CLOSURE ANES LWR 14265 ANESTHESI CHASE ABD 7 A GROUP VENTRAL & PRACTICE INCISIONA L HERNIA REPAIR MUSC 73327 [facility] MYOCUTANE 7 [place] OUS/FASCI OCUTANEOU PHYSICIAN S FLAP S TRUNK ANES 24065 ANESTHESI RANDY LOWER 7 A GROUP INTESTINE PRACTICE ENDOSCOPY DISTAL DUODENUM EGD [address]6 [facility] TRANSORAL 7 [place] BIOPSY SINGLE/MU PHYSICIAN LTIPLE S COLONOSCO [address] [facility] PY 7 [place] W/BIOPSY SINGLE/[place] [address] [address] SIA SURG 7 [place] PATHOLOGY MED CTR GROSS&ISAAC ROSCOPIC EXAM C-REACTIV [address] E PROTEIN 6 [facility] CTR MED CTR 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 ST 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 [address] RADIOLOGY KLEIMEYER ABDOMEN & 6 KERLINE PELVIS ASSOCIATE W/CONTRAS S OF NOTH T MATERIAL ADMN SET A7003 YOUR YOUR SM VOL 6 PHARMACY PHARMACY [facility] PNEUMAT NEBULIZR DISPBL C-REACTIV 16538 RADHA GARCIA E PROTEIN 6 [facility] INC INC COMPREHEN 00432 RAD[facility] SIVE 6 [facility] [place] [address] RADHA GARCIA INFUSION 6 [facility] THERAPY/P INC INC ROPHYLAXI S /DX 1ST TO 1 HR BLOOD 70843 RAD[facility] GARCIA COUNT 6 [facility] COMPLETE INC INC AUTO&AUTO DIFRNTL WBC RADIOLOGI 26083 [facility] ALL C EXAM 6 MEDICAL CHEST 2 IMAGING VIEWS ASS FRONTAL&L ATERAL CULTURE 66132 RAD[facility] GARCIA BACTERIAL 6 [facility] INC INC QUANTTATI VE COLONY COUNT URINE THER 12545 RADHA GARCIA PROPH/DX 6 [facility] NJX IV INC INC PUSH SINGLE/1S T SBST/DRUG COMPREHEN 86279 RAD[facility] GARCIA SIVE 6 [facility] METABOLIC INC INC PANEL BLOOD 02745 RAD[facility] GARCIA COUNT 6 [facility] COMPLETE INC INC AUTO&AUTO DIFRNTL WBC URNLS DIP 52756 [facility] G[facility]IA 6 [facility] STICK/TAB INC INC LET REAGENT AUTO MICROSCOP Y THERAPEUT 43454 [facility] GARCIA IC 6 [facility] INJECTION [place] [address] RADHA GARCIA ABDOMEN & 6 [facility] PELVIS INC INC W/O CONTRAST MATERIAL RADEX 66269 [facility] SPINE 6 MEDICAL SANDRA LUMBOSACR IMAGING AL ASS MINIMUM 4 VIEWS COMPREHEN 32856 RADHA GARCIA SIVE 6 [facility] METABOLIC INC INC PANEL CHEMOTX 91282 RADHA GARCIA ADMN IV 6 [facility] NFS TQ UP INC INC 1 HR 1/ SBST/DRUG C-REACTIV 81579 RADHA GARCIA E PROTEIN 6 [facility] INC INC INJECTION J3380 RAD[facility] GARCIA 6 [facility] VEDOLIZUM INC INC AB 1 MG BLOOD 08169 RADHA GARCIA COUNT 6 [facility] COMPLETE INC INC AUTO&AUTO DIFRNTL WBC AMBULANCE A0429 [facility] SERVICE 6 AMBULANCE AMBULANCE [facility] SERVICE SERVICE EMERGENCY TRANSPORT GROUND A0425 [facility] PER SERVICE SERVICE STATUTE MILE THERAPEUT 92793 RADHA RADHA IC 6 [facility] PROPHYLAC INC INC TIC/DX INJECTION SUBQ/IM THERAPEUT 34780 [facility] SHAUN IC 6 PHYSICIAN STONE PROPHYLAC S GROUP ZUHAIR DUVAL TIC/DX INJECTION SUBQ/IM ADMN SET A7003 YOUR YOUR SM VOL 6 PHARMACY PHARMACY NONFILTR [employer] PNEUMAT NEBULIZR DISPBL THERAPEUT 20523 [facility] IC 6 PHYSICIAN PHYSICIAN PROPHYLAC S GROUP S GROUP TIC/DX INJECTION SUBQ/IM CHEMOTX 44400 RADHA GARCIA ADMN IV 6 [facility] NFS TQ UP INC INC 1 HR 1 SBST/DRUG COMPREHEN 39981 RADHA GARCIA SIVE 6 [facility] METABOLIC INC INC PANEL C-REACTIV 30604 RADHA GARCIA E PROTEIN 6 [facility] INC INC BLOOD 09779 RADHA GARCIA COUNT 6 [facility] COMPLETE INC INC AUTO&AUTO DIFRNTL WBC INJECTION J3380 RADHA GARCIA 6 [facility] VEDOLIZUM INC INC AB 1 MG ADMN SET A7003 YOUR YOUR SM VOL 6 PHARMACY PHARMACY [employer] PNEUMAT NEBULIZR DISPBL RADEX ABD 36847 [facility] ALL COMPL 6 MEDICAL AQT ABD IMAGING W/S/E/D ASS VIEWS 1 VIEW CH C-REACTIV 61695 RADHA GARCIA E PROTEIN 6 [facility] INC INC COMPREHEN 44398 RAD[facility] GARCIA SIVE 6 [facility] METABOLIC INC INC PANEL CHEMOTX 55921 RADHA GARCIA ADMN IV 6 [facility] NFS TQ UP INC INC 1 HR / SBST/DRUG INJECTION J3380 [facility] GARCIA 6 [facility] VEDOL[facility]UM INC INC AB 1 MG BLOOD 84816 RADHA GARCIA COUNT 6 [facility] COMPLETE INC INC AUTO&AUTO DIFRNTL WBC BLOOD 16265 [facility] COMPLETE INC INC AUTO&AUTO DIFRNTL WBC INJECTION J3380 [facility] 6 [facility] VEDOLIZUM INC INC AB 1 [place] [address] RADHA GARCIA INFUSION 6 [facility] THERAPY/P INC INC ROPHYLAXI S /DX 1ST TO 1 HR COMPREHEN 38615 [facility] SIVE 6 [facility] METABOLIC INC INC PANEL C-REACTIV 59910 RADHA GARCIA E PROTEIN 6 [facility] INC INC C-REACTIV 02256 RAD[facility] GARCIA E PROTEIN 5 [facility] INC INC COMPREHEN 10685 RAHDA GARCIA SIVE 5 [facility] METABOLIC INC INC PANEL CHEMOTX 86825 RADHA GARCIA ADMN IV 5 [facility] NFS TQ UP INC INC 1 HR SBST/DRUG INJECTION C9026 [facility] VEDOLIZUM INC INC AB 1 MG BLOOD 11430 [facility] G[facility]IA COUNT 5 [facility] COMPLETE INC INC AUTO&AUTO DIFRNTL WBC BLOOD 01661 [facility] G[facility] COUNT 5 [facility] COMPLETE INC INC AUTO&AUTO DIFRNTL WBC COLLECTIO 30623 [facility] GARC[facility] N VENOUS 5 [facility] BLOOD INC INC VENIPUNCT URE TB CELL 37626 RAD[facility] GARCIA MEDIATED 5 [facility] ANTIGN INC INC RESPNSE GAMMA INTERFERO N COMPREHEN 16034 [facility] G[facility] SIVE 5 [facility] METABOLIC INC INC PANEL PROTHROMB 61239 RADHA GRACIA IN TIME 5 [facility] INC INC 25 23203 RADHA GARCIA HYDROXY 5 [facility] INCLUDES INC INC FRACTIONS IF PERFORMED CYANOCOBA 69760 [facility] G[facility]IA JAKOB 5 [facility] VITAMIN INC INC B-12 C-REACTIV 88535 RADHA GARCIA E PROTEIN 5 [facility] INC INC RADEX 06430 [facility] SPINE 5 MEDICAL SANDRA CERVICAL IMAGING 4 OR 5 ASS VIEWS PRESSURIZ 67387 RADHA GARCIA ED/NONPRE 5 [facility] SSURIZED INC INC INHALATIO N TREATMENT COMPREHEN 42936 [facility] GARCIA SIVE 5 [facility] METABOLIC INC INC PANEL RADIOLOGI 50254 [facility] C 5 [facility] EXAMINATI INC INC ON CHEST SINGLE VIEW FRONTAL ECG 68091 TAMIKA LUNDBERG ROUTINE 5 REJI REJI ECG W/LEAST 12 LDS I&R ONLY ECG 08577 RAD[facility] GARCIA ROUTINE 5 [facility] ECG INC INC W/LEAST 12 LDS TRCG ONLY W/O I&R NATRIURET 86803 RADHA GARCIA IC 5 [facility] PEPTIDE INC INC BLOOD 52313 RAD[facility] GARCIA COUNT 5 [facility] COMPLETE INC INC AUTO&[place] [address] RADHA GARCIA TROPONIN 5 [facility] QUANTITAT INC INC ANIYAH ADMN SET A7003 YOUR YOUR SM VOL 5 [facility] PNEUMAT NEBULIZR DISPBL NEBULIZER E0570 WOLF BLOOM WITH 5 HOME HOME COMPRESSO MEDICAL MEDICAL R EQUIPME EQUIPME PRESSURIZ 94087 [facility] YEIMI ED/NONPRE 5 PHYSICIAN ISAAC SSURIZED S GROUP INHALATIO N TREATMENT THERAPEUT 39742 [facility] YEIMI IC 5 PHYSICIAN ISAAC PROPHYLAC S GROUP TIC/DX INJECTION SUBQ/IM INJECTION J1040 [facility] YEIMI 5 PHYSICIAN ISAAC METHYLPRE S GROUP DNISOLONE ACETATE 80 MG RADIOLOGI 49670 [facility] ALL C EXAM 5 MEDICAL CHEST 2 IMAGING VIEWS ASS FRONTAL&L ATERAL EGD 77043 ANALI LOCO TRANSORAL 5 MEDICAL KERLINE BIOPSY SERV SINGLE/MU FOUNDATIO LTIPLE N COLONOSCO 34782 ANALI LOCO PY 5 MEDICAL KERLINE W/BIOPSY SERV SINGLE/MU FOUNDATIO LTIPLE N UNCLASSIF J3490 RADHA GARCIA IED DRUGS 5 [facility] [place] [address] [facility], SURG 5 [facility] PATHOLOGY GROSS&ISAAC ROSCOPIC EXAM RADIOLOGI 88977 [facility] C EXAM 5 MEDICAL SANDRA CHEST 2 IMAGING VIEWS ASS FRONTAL&L ATERAL COMPREHEN 17964 RADHA GARCIA SIVE 5 [facility] METABOLIC INC INC PANEL MICROSOMA 66902 RADHA [facility]ARCIA L 5 [facility] [place] [address] RADHA GARCIA THYROID 5 [facility] STIMULATI [place] [address] RADHA GARCIA THYROXINE 5 [facility] TOTAL INC INC THERAPEUT 40188 [facility] YEIMI IC 5 PHYSICIAN ISAAC PROPHYLAC S GROUP TIC/DX INJECTION SUBQ/IM 25 27816 RADHA GARCIA HYDROXY 5 [facility] INCLUDES INC INC FRACTIONS IF PERFORMED COLLECTIO 08798 [facility] N VENOUS 5 PHYSICIAN ISAAC [place] [address] RADHA GARCIA TRIIODOTH 5 [facility] YRONINE INC INC T3 FREE RADIOLOGI 84880 [facility] C EXAM 5 MEDICAL SANDRA CHEST 2 IMAGING VIEWS ASS FRONTAL&L ATERAL COMPREHEN 76394 RADHA GARCIA SIVE 5 [facility] [place] [address] RADHA GARCIA IRON 5 [facility] INC INC C-REACTIV 05097 RADHA RADHA E PROTEIN 5 [facility] INC INC 25 45106 RADHA GARCIA HYDROXY 5 [facility] INCLUDES INC INC FRACTIONS IF PERFORMED CYANOCOBA 12005 RADHA GARCIA JAKOB 5 [facility] VITAMIN INC INC B-12 IRON 96426 RADHAANYI THOMASON BINDING 5 [facility] CAPACITY INC INC BLOOD 80906 RADHA GARCIA COUNT 5 [facility] COMPLETE INC INC AUTO&AUTO DIFRNTL WBC COLLECTIO 51343 RADHA GARCIA N VENOUS 5 [facility] BLOOD INC INC VENIPUNCT URE RADEX 12518 SHARON CASTILLOUTCHER ABDOMEN 1 5 MEDICAL ROM IMAGING ANTEROPOS ASS TERIOR VIEW RADEX 84892 RADHAANYI GARCIA ABDOMEN 5 [facility] COMPL INC INC W/DCBTS&/ ERC VIEWS OPHTH 13646 SCIFRES SCIFRES MEDICAL 5 ANG ANG XM&EVAL COMPRE NEW PT 1/> VST BLOOD 16812 RADHA GARCIA COUNT 5 [facility] COMPLETE INC INC AUTO&[place] [address] RADHA GARCIA FREE 5 [facility] [place] [address] RADHA GARCIA THYROID 5 [facility] STIMULATI INC INC NG HORMONE TSH 25 34566 RADHA GARCIA HYDROXY 5 [facility] INCLUDES INC INC FRACTIONS IF PERFORMED COMPREHEN 30464 RADHA GARCIA SIVE 5 [facility] METABOLIC INC INC PANEL RADIOLOGI 77998 RADHA GARCIA C EXAM 4 [facility] CHEST 2 INC INC VIEWS FRONTAL&L ATERAL IAADI 76372 RADHA GARCIA INFLUENZA 4 [facility] B VIRUS INC INC IAADI 63630 RADHA GARCIA INFFLUENZ 4 [facility] A A VIRUS INC [facility] 63788 [facility] 4 PHYSICIAN ISAAC DAY S GROUP MANAGEMEN T 30 MIN/< SBSQ 71075 [facility] 4 PHYSICIAN ISAAC CARE/DAY S GROUP 15 MINUTES INITIAL 41848 [facility] 4 PHYSICIAN ISAAC CARE/DAY S GROUP 50 MINUTES ECG 07041 TASHIA LAO JR ROUTINE 4 DWI DWI ECG W/LEAST 12 LDS I&R ONLY CT THORAX 14202 SHARON RAE 4 MEDICAL SANDRA W/CONTRAS IMAGING T ASS MATERIAL RADIOLOGI 09520 SHARON Wolfe 4 MEDICAL SANDRA EXAMINATI IMAGING [place] [address] RADHA GARCIA INFUSION 4 [facility] THERAPY/P INC INC ROPHYLAXI S /DX 1ST TO 1 HR THERAPEUT 99269 RAD[facility] GARCIA IC 4 [facility] INJECTION INC INC IV PUSH EACH NEW DRUG BLOOD 74092 RADHA GARCIA COUNT 4 [facility] COMPLETE INC INC AUTO&AUTO DIFRNTL WBC COMPREHEN 26713 RADHA GARCIA SIVE 4 [facility] METABOLIC INC INC PANEL RADEX ABD 55038 [facility] CASTILLOTERESA COMPL 4 MEDICAL ROM AQT ABD IMAGING W/S/E/D ASS VIEWS 1 VIEW CH COMPREHEN 88558 [facility] PANEL C-REACTIV 20305 [facility] PROTEIN 4 Y Y [facility] 25 30025 [facility] HYDROXY 4 Y Y [facility] FRACTIONS IF PERFORMED CYANOCOBA 73635 [facility] JAKOB 4 Y Y [facility] B-12 [place] [address] [facility] FERRITIN 4 Y Y [facility] NZYM 91838 [facility] ACTIV BLD 4 Y Y [facility] CELLS/TIS S NONRADACT SUBSTRATE EA BLOOD 41746 [facility] UN[facility] COUNT 4 Y Y COMPLETE [facility] AUTO&AUTO DIFRNTL WBC IRON 28606 [facility] BINDING 4 Y Y [facility] COLLECTIO 42957 [facility] UNIV[facility] N VENOUS 4 Y Y BLOOD [facility] VENIPUNCT URE TB CELL 04179 [facility] MEDIATED 4 Y Y ANTIGN [facility] RESPNSE GAMMA INTERFERO N RADIOLOGI 49291 [place] [facility] C EXAM 4 MEDICAL ROM CHEST 2 IMAGING VIEWS ASS FRONTAL&[place] [address] RADHAANYI GARCIA TRACT UPR 4 [facility] W/SM INT INC [place] [address] SHARON RAE UPR W/WO 4 MEDICAL SANDRA GLUCOSE IMAGING W/SM ASS INTEST FOLLW-THR U BASIC 00429 RADHAANYI GARCIA METABOLIC 4 [facility] PANEL INC INC CALCIUM TOTAL RADEX 26482 SHARON TERESA ABDOMEN 4 MEDICAL ROM COMPL IMAGING W/DCBTS&/ [place] [address] [facility] TERESA ABDOMEN & 4 MEDICAL ROM PELVIS IMAGING W/[place] [address] SHARON TERESA ABDOMEN & 4 MEDICAL ROM PELVIS IMAGING W/O ASS CONTRAST MATERIAL GROUND A0425 [facility] AM[facility]ULANCE PER SERVICE SERVICE STATUTE MILE AMBULANCE A0429 [facility] SERVICE 4 AMBULANCE AMBULANCE BLS SERVICE SERVICE EMERGENCY TRANSPORT RADEX 37177 SHARON RAE SPINE 4 MEDICAL SANDRA LUMBOSACR IMAGING AL ASS MINIMUM 4 VIEWS RADEX ABD 61528 [facility] COMPL 4 ROM ROM AQT ABD W/S/E/D VIEWS 1 VIEW CH ECG 54495 JYOTI MONTES ROUTINE 3 JR JUAN ANTONIO JR JUAN ANTONIO ECG W/LEAST 12 LDS I&R ONLY RADEX 44951 [facility] TERESA ABDOMEN 1 3 ROM ROM ANTEROPOS TERIOR VIEW ANES 86575 JIAN VILLAR INTRAPERI 3 CELESTINE CELESTINE TONEAL UPPER ABDOMEN W/LAPS NOS REMOVAL 16820 BOTTIGGI BOTTIGGI PERITONEA 3 ANT ANT [place] [address] MORRISON MORRISON SURG 3 JUAN ANTONIO JUAN ANTONIO PATHOLOGY GROSS EXAMINATI ON ONLY SUSCEPTIB 65098 RADHA GARCIA LTY STDY 3 [facility] ANTIMICRB INC INC IAL MICRO/AGA R DILUTJ BLOOD 44260 RADHA GARCIA COUNT 3 [facility] COMPLETE INC INC AUTO&AUTO DIFRNTL WBC CUL BACT 07140 RADHA GARCIA XCPT 3 [facility] URINE INC INC BLOOD/STO OL AEROBIC ISOL CUL BACT 71416 RADHA GARCIA AEROBIC 3 [facility] ADDL INC INC METHS DEFINITIV E EA ISOL BASIC 75007 RADHA GARCIA METABOLIC 3 [facility] [place] [address] RADHA GARCIA LIPASE 3 [place] [address] RADHA GARCIA AMYLASE 3 [facility] INC INC COMPREHEN 93310 RADHA GARCIA SIVE 3 [facility] METABOLIC INC INC PANEL BLOOD 10024 RADHA GARCIA COUNT 3 [facility] COMPLETE INC INC AUTO&AUTO DIFRNTL WBC URNLS DIP 90784 RADHA GARCIA 3 [facility] STICK/TAB INC INC LET REAGENT AUTO MICROSCOP Y RADIOLOGI 00872 [facility] C EXAM 3 ROM ROM CHEST 2 VIEWS FRONTAL&L ATERAL RADIOLOGI 42402 [facility] TER[facility] C EXAM 3 ROM ROM CHEST 2 VIEWS FRONTAL&L ATERAL RADIOLOGI 65271 TERESA TERESA C 3 ROM ROM EXAMINATI ON CHEST SINGLE VIEW FRONTAL COLECTOMY 52765 WENDY NGUYEN PRTL 3 BOONE BOONE W/RMVL TERMINAL ILEUM & [place] [address] LEON ISAAC LEON ISAAC SURG 3 PATHOLOGY GROSS&ISAAC ROSCOPIC EXAM ANES 60157 [facility] 3 ANESTH TONEAL OF THE UPPER BLUE ABDOMEN W/LAPS NOS OPEN AND 4572 RADHA GARCIA OTHER 3 [facility] CECECTOMY INC INC BLOOD 90364 RADHA GARCIA COUNT 3 [facility] COMPLETE INC INC AUTO&AUTO DIFRNTL WBC COMPREHEN 31727 RADHA GARCIA SIVE 3 [facility] METABOLIC INC INC PANEL RADEX ABD 74897 RADHA GARCIA COMPL 3 [facility] AQT ABD INC INC W/S/E/D VIEWS 1 VIEW CH IAADI 86329 RADHA THOMASON INFFLUENZ 3 [facility] A A VIRUS INC INC IAADI 72586 RADHA GARCIA INFLUENZA 3 [facility] [place] [address] RADHA RADHA LIPASE 3 [facility] INC INC THER 53821 RADHA GARCIA PROPH/DX 3 [facility] NJX IV INC INC PUSH SINGLE/1S T SBST/DRUG COMPREHEN 36859 RADHA GARCIA SIVE 3 [facility] METABOLIC INC INC PANEL BLOOD 59687 RADHA GARCIA COUNT 3 [facility] COMPLETE INC INC AUTO&AUTO DIFRNTL WBC URNLS DIP 77894 RADHA GARCIA 3 [facility] STICK/TAB INC INC LET REAGENT AUTO MICROSCOP Y THERAPEUT 67494 RADHA GARCIA IC 3 [facility] INJECTION INC INC IV PUSH EACH NEW DRUG THERAPEUT 91727 RADHA RADHA IC 2 [facility] INJECTION [place] [address] RADHA GARCIA INFUSION 2 [facility] THERAPY/P INC INC ROPHYLAXI S /DX 1ST TO 1 HR LOCM Q9967 RADHA RADHA 300-399 2 [facility] MG/ML INC INC IODINE CONCENTRA TION PER ML URNLS DIP 47951 RADHA RADHA 2 [facility] STICK/TAB INC INC LET REAGENT AUTO MICROSCOP Y BLOOD 63810 RADHA GARCIA COUNT 2 [facility] COMPLETE INC INC AUTO&[place] [address] RADHA GARCIA ABDOMEN & 2 [facility] PELVIS INC INC W/[place] [address] RADHA GARCIA LIPASE 2 [facility] INC INC THER 52915 RADHA GARCIA PROPH/DX 2 [facility] NJX EA INC INC SEQL IV PUSH SBST/DRUG FAC RADEX 38731 RADHA GARCIA ABDOMEN 1 2 [facility] INC INC ANTEROPOS TERIOR VIEW 3D 21721 RADHA GARCIA RENDERING 2 [facility] INC INC W/INTERP& POSTPROC DIFF WORK STATION COMPREHEN 46099 RADHA GARCIA SIVE 2 [facility] [place] [address] RADHA [facility]ARCIA AMYLASE 2 [facility] INC INC SKIN TEST 47715 RADHA [facility]ARCIA 2 [facility] TUBERCULO INC INC SIS INTRADERM AL RADIOLOGI 88210 [place] [facility] C EXAM 2 MEDICAL ROM CHEST 2 IMAGING VIEWS ASS FRONTAL&L ATERAL CULTURE 54321 RADHA GARCIA BACTERIAL 2 [facility] INC INC QUANTTATI [place] [address] RADHA GARCIA AMYLASE 2 [facility] INC INC COMPREHEN 98393 RADHA GARCIA SIVE 2 [facility] [place] [address] RADHA GARCIA LIPASE 2 [facility] INC INC BLOOD 75994 RADHA GARCIA COUNT 2 [facility] COMPLETE INC INC AUTO&AUTO DIFRNTL WBC URNLS DIP 72640 RADHA GARCIA 2 [facility] STICK/TAB INC [place] [address] RADHA GARCIA INFUSION 2 [facility] THERAPY/P INC INC ROPHYLAXI S /DX 1ST TO 1 [place] [address] RADHA GARCIA INFUSION 2 [facility] THERAPY INC INC PROPHYLAX IS/DX EA HOUR EGD 65006 RADHA GARCIA TRANSORAL 2 [facility] BIOPSY INC INC SINGLE/MU LTIPLE CUL 71086 RADHA GARCIA PRSMPTV 2 [facility] PTHGNC INC INC ORGANISMS SCR DNS CHART CRITICAL 19355 [facility] 2 ISAAC ISAAC ILL/INJUR ED PATIENT INIT 30-74 MIN ECG 21446 TAMIKA LUNDBERG ROUTINE 2 REJI REJI ECG W/LEAST 12 LDS I&R ONLY URNLS DIP 59185 RADHA GARCIA 2 [facility] STICK/TAB INC INC LET REAGENT AUTO MICROSCOP Y URINE 55663 RADHA RADHA 2 [facility] TEST INC INC VISUAL COLOR CMPRSN METHS RADEX 91957 RADHA RADHA SMALL 2 [facility] INTESTINE INC INC [place] [address] SHARON MOORE UPR W/WO 2 MEDICAL ROM GLUCOSE IMAGING W/SM ASS INTEST FOLLW-THR U BLOOD 64502 RADHA GARCIA COUNT 2 [facility] COMPLETE INC INC AUTO&AUTO DIFRNTL WBC C-REACTIV 23707 RADHAANYI GARCIA E PROTEIN 2 [facility] INC INC DETERMINA 60530 JOSE GARCIA RA TION 2 REFRACTIV E STATE OPHTH 16899 JOSE GARCIA RA MEDICAL 2 XM&EVAL COMPRE NEW PT 1/> [place] [address] RADHA GARCIA INFUSION 2 [facility] THERAPY/P INC INC ROPHYLAXI S /DX 1ST TO 1 HR THERAPEUT 99628 RADHA GARCIA IC 2 [facility] INJECTION INC INC IV PUSH EACH NEW DRUG URNLS DIP 79088 RADHA RADHA 2 [facility] STICK/TAB INC INC LET REAGENT AUTO MICROSCOP Y BLOOD 98391 RADHA GARCIA COUNT 2 [facility] COMPLETE INC INC AUTO&[place] [address] RADHA GARCIA AMYLASE 2 [facility] INC INC COMPREHEN 67007 RADHA GARCIA SIVE 2 [facility] [place] [address] RADHA GARCIA LIPASE 2 [place] [address] RADHA GARCIA LIPASE 2 [facility] INC INC THER 11991 RADHA GARCIA PROPH/DX 2 [facility] NJX IV INC INC PUSH SINGLE/1S T SBST/DRUG COMPREHEN 44963 RADHA GARCIA SIVE 2 [facility] METABOLIC INC INC PANEL BLOOD 45811 RADHA GARCIA COUNT 2 [facility] COMPLETE INC INC AUTO&AUTO DIFRNTL WBC BLOOD 03679 RADHA GARCIA COUNT 2 [facility] COMPLETE INC INC AUTO&AUTO DIFRNTL WBC URNLS DIP 88263 RADHA RADHA 2 [facility] STICK/TAB INC INC LET REAGENT AUTO MICROSCOP Y COMPREHEN 04160 RADHA GARCIA SIVE 2 [facility] [place] [address] RADHA GARCIA AMYLASE 2 [place] [address] RADHA GARCIA LIPASE 2 [facility] INC INC THERAPEUT 67901 RADHA GARCIA IC 2 [facility] PROPHYLAC INC INC TIC/DX INJECTION SUBQ/IM THERAPEUT 21757 RADHA GARCIA IC 2 [facility] PROPHYLAC INC INC TIC/DX INJECTION SUBQ/IM THERAPEUT 28977 RADHA GARCIA IC 2 [facility] PROPHYLAC INC INC TIC/DX INJECTION SUBQ/IM RADEX 28678 RADHA GARCIA SPINE 2 [facility] LUMBOSACR INC INC AL MINIMUM 4 VIEWS AMB A0427 [facility] SERVICE 2 AMBULANCE AMBULANCE ALS SERVICE SERVICE EMERGENCY TRANSPORT LEVEL 1 GROUND A0425 [facility] PER SERVICE SERVICE STATUTE MILE RADEX 06232 RADHA GARCIA RIBS UNI 2 [facility] W/POSTERO INC INC ANT CH MINIMUM 3 VIEWS RADEX HIP 00623 RADHA GARCIA 2 [facility] UNILATERA INC INC L COMPLETE MINIMUM 2 [place] [address] RADHA GARCIA INFUSION 1 [facility] THERAPY INC INC PROPHYLAX IS/DX EA HOUR BASIC 98010 RADHA GARCIA METABOLIC 1 [facility] [place]EL [place] [address] RADHA GARCIA LIPASE 1 [place] [address] RADHA GARCIA ABDOMEN & 1 [facility] PELVIS INC INC W/O CONTRAST MATERIAL 3D 69643 RADHA GARCIA RENDERING 1 [facility] INC INC W/INTERP& [place] [address] RADHA GARCIA INFUSION 1 [facility] THERAPY/P INC INC ROPHYLAXI S /DX 1ST TO 1 HR INJECTION J2405 RADHA GARCIA 1 [facility] ONDANSETR INC INC ON HCL PER 1 MG HEPATIC 00391 RADHA RADHA FUNCTION 1 [facility] PANEL INC INC URNLS DIP 02440 RADHA GARCIA 1 [facility] STICK/TAB INC INC LET REAGENT AUTO MICROSCOP Y BLOOD 32707 RADHAANYI GARCIA COUNT 1 [facility] COMPLETE INC INC AUTO&[place] [address] RADHA GARCIA INFUSION 1 [facility] THERAPY/P INC INC ROPHYLAXI S /DX 1ST TO 1 HR INJECTION J1745 RADHA RADHA 1 [facility] INFLIXIMA INC INC B EXCLUDES BIOSIMILA R 10 [place] [address] RADHA GARCIA INFUSION 1 [facility] THERAPY INC INC PROPHYLAX IS/DX EA HOUR CT SOFT 47134 RADHA GARCIA TISSUE 1 [facility] NECK INC INC W/CONTRAS T MATERIAL URINE 93945 RADHA GARCIA 1 [facility] TEST INC INC VISUAL COLOR CMPRSN METHS 3D 17749 RADHA GARCIA RENDERING 1 [facility] INC INC W/INTERP& POSTPROC DIFF WORK STATION RADIOLOGI 07114 RADHA GARCIA C EXAM 1 [facility] CHEST 2 INC INC VIEWS FRONTAL&L ATERAL IAADI 12353 RADHA GARCIA INFLUENZA 1 [facility] B VIRUS INC INC IAADI 63243 RADHA GARCIA INFFLUENZ 1 [facility] A A VIRUS INC INC COMPREHEN 37326 RADHA GARCIA SIVE 1 [facility] METABOLIC INC INC PANEL INJECTION J2405 RADHAANYI GARCIA 1 [facility] ONDANSETR INC INC ON HCL [place] 1 [place] [address] RADHA GARCIA STREPTOCO 1 [facility] CCUS INC INC GROUP A URNLS DIP 46102 RADHA RADHA 1 [facility] STICK/TAB INC INC LET REAGENT AUTO MICROSCOP Y AMBULANCE A0429 [facility] SERVICE 1 AMBULANCE AMBULANCE BLS SERVICE SERVICE EMERGENCY TRANSPORT GROUND A0425 [facility] MILEAGE 1 AMBULANCE AMBULANCE PER SERVICE SERVICE STATUTE [facility] BLOOD 51098 RADHA GARCIA COUNT 1 [facility] COMPLETE INC INC AUTO&[place] [address] RADHA GARCIA STREPTOCO 1 [facility] CCUS INC INC GROUP A IAADI 61582 RADHA GARCIA INFLUENZA 1 [facility] B VIRUS INC INC IAADI 86867 RADHA GARCIA INFFLUENZ 1 [facility] [place] [address] RADHA GARCIA INFUSION 1 [facility] THERAPY/P INC INC ROPHYLAXI S /DX 1ST TO [place] [address] [facility] INFUSION 1 [facility] THERAPY INC INC PROPHYLAX IS/DX EA HOUR RADIOLOGI 28177 [facility] C EXAM 1 [facility] CHEST 2 INC INC VIEWS FRONTAL&L ATERAL SKIN TEST 31626 [facility]IA 1 [facility] TUBERCULO INC INC SIS INTRADERM AL RADIOLOGI [address]202 [place] C EXAM 1 MEDICAL ROM CHEST 2 IMAGING VIEWS ASS FRONTAL&[place] [address] [facility] INFUSION 1 [facility] THERAPY/P INC INC ROPHYLAXI S /DX 1ST TO 1 HR 3D 40447 [place] RENDERING 1 MEDICAL ROM IMAGING W/INTERP& [place] [address] [place] ABDOMEN & 1 MEDICAL ROM PELVIS IMAGING [place] [address] [facility] INFUSION 1 [facility] THERAPY INC [place] [address] [facility] LIPASE 1 [facility] INC INC COMPREHEN 85244 [facility] SIVE 1 [facility] METABOLIC INC INC PANEL URNLS DIP 70194 [facility] RADHA 1 [facility] STICK/TAB INC INC LET REAGENT AUTO MICROSCOP Y BLOOD 26476 [facility] COUNT 1 [facility] COMPLETE INC INC AUTO&AUTO DIFRNTL WBC BLOOD 79612 [facility] COUNT 1 [facility] COMPLETE INC INC AUTO&AUTO DIFRNTL WBC URNLS DIP 19724 [facility] 1 [facility] STICK/TAB INC INC LET REAGENT AUTO MICROSCOP Y BASIC 82777 [facility] METABOLIC 1 [facility] [place] [address] RADHA GARCIA LIPASE 1 [place] [address] [facility] G[facility] INFUSION 1 [facility] THERAPY INC INC PROPHYLAX IS/DX EA HOUR COMPREHEN 07867 [facility] SIVE 1 [facility] [place] [address] RADHA GARCIA AMYLASE 1 [place] [address] [facility] INFUSION 1 [facility] THERAPY/P INC INC ROPHYLAXI S /DX 1ST TO 1 HR URNLS DIP 14569 [facility]IA 1 [facility] STICK/TAB INC INC LET REAGENT AUTO MICROSCOP Y BLOOD 01101 [facility] COUNT 1 [facility] COMPLETE INC INC AUTO&AUTO DIFRNTL WBC SKIN TEST 72856 RADHA GARCIA 1 [facility] SIS INTRADERM AL RADIOLOGI 31514 [place] C EXAM 1 MEDICAL ROM CHEST 2 IMAGING VIEWS ASS FRONTAL&L ATERAL URNLS DIP 04031 [facility] 1 [facility] STICK/TAB INC INC LET REAGENT AUTO MICROSCOP Y OVA&JACQUELINE 44846 [facility] ITES 0 [facility] DIRECT INC INC SMEARS CONCENTRA TION & [place] [address] [facility] CLOSTRIDI 0 [facility] [place] [address] [facility] G[facility] GIARDIA 0 [facility] INC INC CUL BACT 71661 [facility] STOOL 0 [facility] AEROBIC INC INC ISOL SALMONELL A&SHIGELL C-REACTIV 97988 [facility] E PROTEIN 0 [facility] [place] [address] [facility] G[facility] INFUSION 0 [facility] THERAPY/P INC INC ROPHYLAXI S /DX 1ST TO [place] [address] [facility] INFUSION 0 [facility] THER INC INC PROPH ADDL SEQUENTIA L TO 1 HR URNLS DIP 86896 [facility] 0 [facility] STICK/TAB INC INC LET REAGENT AUTO MICROSCOP Y URNLS DIP 50788 [facility] 0 [facility] STICK/TAB INC INC [place] [address] RADHAANYI THOMASON STREPTOCO 0 [facility] CCUS INC INC GROUP A BLOOD 31536 [facility] THOMASON COUNT 0 [facility] COMPLETE INC INC AUTO&[place] [address] RADHA GARCIA LIPASE 0 [place] [address] RAD[facility] THOMASON AMYLASE 0 [facility] INC INC COMPREHEN 90412 [facility] G[facility] SIVE 0 [facility] METABOLIC INC INC PANEL RADEX TOE 66921 [facility] G[facility] MINIMUM 0 [facility] 2 VIEWS INC INC GROUND A0425 [facility] MILEAGE 0 AMBULANCE AMBULANCE PER SERVICE SERVICE STATUTE MILE AMBULANCE A0429 [facility] SERVICE 0 AMBULANCE AMBULANCE BLS SERVICE SERVICE EMERGENCY TRANSPORT APPL 78643 RADHA GARCIA MODALITY 9 MEM [facility] 1/> AREAS INC INC ELEC STIMJ UNATTENDE D APPLICATI 72765 RADHA GARCIA ON 9 [facility] MODALITY INC INC 1/> AREAS HOT/COLD PACKS APPL 70786 RADHA GARCIA MODALITY 9 [facility] 1/> AREAS INC INC ULTRASOUN D EA 15 MIN PHYSICAL 08140 RADHA GARCIA THERAPY 9 [facility] EVALUATIO INC INC N THERAPEUT 52978 RADHA GARCIA IC PX 1/> 9 [facility] AREAS INC INC EACH 15 MIN EXERCISES PSYCHOLOG 43631 PHYSICIAN TREVOR BLOUNT 9 S KP W TESTING SERVICES ADMN BY [facility] TECH PA HR NDL EMG 1 47353 SIENNA EL, XTR W/WO 9 KP [place] RELATED PARASPINA L AREAS NRV CNDJ 25989 SIENNA EL, AMPLT&LAT 9 KP [place] ENCY EA NRV MOTOR W/F-WAVE STD NRV CNDJ 08631 SIENNA EL, AMPLITUDE 9 KP GOODRICH & LATENCY EACH NERVE SENSORY MRI 80450 CASEY C TERESA, SPINAL 9 TERESA CASEY CANAL LUMBAR W/O CONTRAST MATERIAL 3D 07339 CASEY C TERESA, RENDERING 9 TERESA CASEY W/INTERP & POSTPROCE SS SUPERVISI ON ECHO 76863 [facility] R-T 9 PHYSICIAN VALERIE Owen GROUP W/WOM-MOD E COMPL SPEC&COLR D BLOOD 32560 RADHA GARCIA COUNT 9 [facility] COMPLETE INC INC AUTO&AUTO DIFRNTL WBC RHEUMATOI 13421 RADHA Buenrostro FACTOR 9 [facility] QUANTITAT INC INC ANIYAH HEMOGLOBI 31505 RADHA GARCIA N 9 [facility] GLYCOSYLA INC INC ANGELA A1C CYANOCOBA 00489 RADHA GARCIA JAKOB 9 [facility] VITAMIN INC INC B-[address] [place] [address] RADHA GARCIA THYROXINE 9 [facility] TOTAL INC INC PROTEIN 18453 RADHA GARCIA ELECTROPH 9 [facility] ORETIC INC INC FRACTJ&[place] [address] RADHA GARCIA FOLIC 9 [facility] [place] [address] RADHA GARCIA THYROID 9 [facility] STIMULATI INC INC NG HORMONE TSH SYPHILIS 25303 RADHA GARCIA TEST 9 [facility] NON-TREPO INC INC NEMAL ANTIBODY QUAL COMPREHEN 05789 RADHA GARCIA SIVE 9 [facility] METABOLIC INC INC PANEL RADIOLOGI 25870 Aiden LUZ EXAM 9 MEDICAL CASEY CHEST 2 IMAGING VIEWS ASSOCIATE FRONTAL&L S ATERAL COMPREHEN 66483 RADHA GARCIA SIVE 9 [facility] METABOLIC INC INC PANEL C-REACTIV 30504 RADHA GARCIA E PROTEIN 9 [facility] HIGH INC INC SENSITIVI TY THERAPEUT 65695 RADHA GARCIA IC 9 [facility] PROPHYLAC INC INC TIC/DX INJECTION SUBQ/IM BLOOD 92015 RADHAANYI GARCIA COUNT 9 [facility] COMPLETE INC INC AUTO&[place] [address] [facility]TR[facility]m KOHLER ABDOMEN 9 RADIOLOGY J W/O CONTRAST [address] PELVIS 81253 CNTRL ANALI KOHLER W/O 9 RADIOLOGY J CONTRAST MATERIAL URINE 86710 RADHA RADHA 9 [facility] TEST INC INC VISUAL COLOR CMPRSN METHS COMPREHEN 71942 RADHA GARCIA SIVE 9 [facility] [place] [address] RADHA RADHA AMYLASE 9 [facility] INC INC RADEX 61383 RADHA GARCIA ABDOMEN 9 [facility] COMPL INC INC W/DCBTS&/ ERC VIEWS URNLS DIP 85428 RADHA GARCIA 9 [facility] STICK/TAB INC INC LET REAGENT AUTO MICROSCOP Y BLOOD 44458 RADHA RADHA COUNT 9 [facility] COMPLETE INC INC AUTO&AUTO DIFRNTL WBC BLOOD 58153 RADHA GARCIA COUNT 9 [facility] COMPLETE INC INC AUTO&AUTO DIFRNTL WBC CYANOCOBA 98582 RADHA GARCIA JAKOB 9 [facility] VITAMIN INC INC B-12 RADEX 53920 RADHA RADHA SPINE 9 [facility] SCOLIOS INC INC STUDY W/SUPINE & ERECT STUDY OBSERVATI 46033 SCHULSTAD SCHULSTAD ON CARE 9 , CALEB , CALEB DISCHARGE MANAGEMEN T RADEX ABD 51592 CNTRRm KOHL[place], COMPL 9 RADIOLOGY J AQT ABD W/S/E/D VIEWS 1 VIEW CH INITIAL 66045 WENDY NGUYEN OBSERVATI 9 , CALEB ELLIS ON CARE/[address] [place] [address] CNTRL ANALI SHELTON, ABDOMEN 9 RADIOLOGY JUDAH L W/O CONTRAST MATERIAL CT PELVIS 58985 CNTR[facility] [place] CAT, W/O 9 [place] [address] RADHA GARCIA INFUSION 9 [facility] THERAPY/P INC INC ROPHYLAXI S /DX 1ST TO 1 HR RADEX 24613 [facility] HARLEEN, ABDOMEN 9 MEDICAL SHELDON P COMPL IMAGING W/DCBTS&/ ASSOCIATE ERC VIEWS S COMPREHEN 29079 RADHA GARCIA SIVE 9 [facility] METABOLIC INC INC PANEL URNLS DIP 64364 RADHA GARCIA 9 [facility] STICK/TAB INC INC LET REAGENT AUTO MICROSCOP Y BLOOD 39661 RADHA GARCIA COUNT 9 [facility] COMPLETE INC INC AUTO&AUTO DIFRNTL WBC 3D 51278 RADHA GARCIA RENDERING 9 [facility] W/INTERP INC INC & [place] [address] [facility] HAR[facility]EN, HEAD/BRAI 9 MEDICAL SHELD[place] P N W/O IMAGING CONTRAST ASSOCIATE MATERIAL S CT PELVIS 52047 CNTRL ANALI KOHLER, 9 RADIOLOGY J W/[place] [address] CNTRL ANALI JOSE F, ABDOMEN 9 RADIOLOGY J W/[place] [address] [facility] [place] CESAR, ABDOMEN 9 RADIOLOGY LUIS G W/CONTRAS T MATERIAL CT PELVIS 10438 [facility] [place] CESAR, 9 RADIOLOGY LUIS G W/CONTRAS T MATERIAL RADEX 75615 [facility] TERESA, SPINE 8 MEDICAL CASEY LUMBOSACR IMAGING AL ASSOCIATE MINIMUM 4 [place] [address] RADHA GARCIA TRACT UPR 8 [facility] W/SM INT INC [place] [address] [facility] TERESA, UPR W/WO 8 MEDICAL CASEY GLUCOSE IMAGING W/SM ASSOCIATE INTEST S [place]LLW-[place] NFS 31742 RADHA GARCIA THER 8 [facility] PROPH/DX INC INC 1ST >1 HR AMBULANCE A0429 [facility] SERVICE 8 AMBULANCE AMBULANCE BLS SERVICE SERVICE EMERGENCY TRANSPORT GROUND A0425 [facility]UL[facility] PER SERVICE SERVICE STATUTE MILE URNLS DIP 66367 RADHA GARCIA 8 [facility] STICK/TAB INC INC LET REAGENT AUTO MICROSCOP Y BLOOD 24570 RADHA GARCIA COUNT 8 [facility] COMPLETE INC INC AUTO&[place] [address] RADHA GARCIA LIPASE 8 [facility] INC INC COMPREHEN 48962 RADHA GARCIA SIVE 8 [facility] [place] [address] RADHA GARCIA AMYLASE 8 [place] [address] [place] IVORY, ABDOMEN 8 MEDICAL PAULINA W/CONTRAS SERV T FOUNDAT[place] P[place]VIS [address] [place] DODSON, 8 MEDICAL [place]UL[place] W/CONTRAS SERV T FOUNDATIO MATERIAL INJECTION J2270 [facility] MORPHINE 8 Y Y SULFATE [facility] UP TO 10 MG BLOOD 16459 [facility] COMPLETE [facility] AUTOMATED GONADOTRO 44819 [facility] PIN 8 Y Y [facility] QUALITATI VE URNLS DIP 19273 [facility] UNIVERSIT 8 Y Y STICK/TAB HOSPITAL HOSPITAL LET REAGENT AUTO MICROSCOP Y INJECTION J3010 [facility] FENTANYL 8 Y Y [facility] 0.1 MG RINGERS J7120 [facility] LACTATE 8 Y Y INFUSION [facility]OSPITAL UP TO 1000 CC THER 95185 [facility] UNIVERS[facility] PROPH/DX 8 Y Y NJX IV [facility] PUSH 1ST SBST/[place] [address] [facility] INFUSION 8 Y Y HYDRATION [facility] HOSPITAL INITIAL 31 MIN-1 HR THER 36955 [facility] UN[facility] PROPH/DX 8 Y Y NJX [facility] SEQL IV PUSH SBST/DRUG SUBCUTANE 37098 [facility] OUS 8 Y Y INFUSION [facility] EACH ADDITIONA L IV PUSH INJECTION J2405 [facility] 8 Y [facility] PER 1 MG COLLECTIO 62824 [facility] N VENOUS 8 Y Y BLOOD [facility] VENIPUNCT URE COMPREHEN 68905 [facility] 8 Y Y [facility] PANEL RADEX ABD 14523 [facility] COMPL 8 Y Y AQT [facility] W/S/E/D VIEWS 1 VIEW CH RADEX ABD 19327 SHARON MOORE, COMPL 8 MEDICAL CASEY AQT ABD IMAGING W/S/E/D ASSOCIATE VIEWS 1 [place] [address] RADHA THOMASON AMYLASE 8 [facility] INC INC COMPREHEN 09980 RADHA GARCIA SIVE 8 [facility] [address] RADHA GARCIA LIPASE 8 [facility] [place] [address] RADHA GARCIA THER 8 [facility] PROPH/DX INC INC 1ST >1 HR BLOOD 54320 RADHA RADHA COUNT 8 [facility] COMPLETE INC INC AUTO&AUTO DIFRNTL WBC BLOOD 16950 RADHA RADHA COUNT 8 [facility] COMPLETE INC INC AUTO&AUTO DIFRNTL WBC URNLS DIP 81650 RADHA RADHA 8 [facility] STICK/TAB INC INC LET [place] [address] RADHA THOMASON LIPASE 8 [facility] INC INC BILIRUBIN 23807 RADHA GARCIA DIRECT 8 [facility] INC INC COMPREHEN 36591 RADHA GARCIA SIVE 8 [facility] [place] [address] RADHA THOMASON AMYLASE 8 [facility] INC [place] ABD [address] SHARON MOORE, COMPL 8 MEDICAL CASEY AQT ABD IMAGING W/S/E/D ASSOCIATE VIEWS 1 S VIEW CH 3D 05353 RADHA GARCIA RENDERING 8 [facility] INC INC W/INTERP& [place] [address] RADHA GARCIA ABDOMEN 8 [facility] W/CONTRAS INC INC T [place] PELVIS 10592 SHARON CANSECO, 8 MEDICAL SHELD[place] P W/CONTRAS IMAGING T ASSOCIATE MATERIAL S C-REACTIV 63135 RADHA THOMASANYI Pearson PROTEIN 8 [facility] HIGH INC INC SENSITIVI TY BLOOD 50094 RADHAANYI GARCIA COUNT 8 [facility] COMPLETE INC INC AUTO&AUTO DIFRNTL WBC BLOOD 20491 RADHA GARCIA COUNT 8 [facility] COMPLETE INC INC AUTO&AUTO DIFRNTL WBC BASIC 96333 RADHA GARCIA METABOLIC 8 [facility] PANEL INC INC CALCIUM TOTAL CYANOCOBA 19773 RADHA GARCIA JAKOB 8 [facility] VITAMIN INC INC B-12 IAADI 63102 RADHA GARCIA INFFLUENZ 8 [facility] A A VIRUS INC INC RADIOLOGI 51406 RADHA GARCIA C EXAM 8 [facility] CHEST 2 INC INC VIEWS FRONTAL&L ATERAL IAADI 87781 RADHA GARCIA INFLUENZA 8 [facility] [place] [address] RADHA GARCIA AMYLASE 8 [facility] INC INC CULTURE 48786 RADHA GARCIA BACTERIAL 8 [facility] INC INC QUANTTATI VE COLONY COUNT URINE RADEX ABD 63084 RADHA GARCIA COMPL 8 [facility] AQT ABD INC INC W/S/E/D VIEWS 1 [place] [address] RADHA GARCIA LIPASE 8 [facility] INC INC COMPREHEN 86732 RADHA GARCIA SIVE 8 [facility] METABOLIC INC INC PANEL BLOOD 02922 RADHA GARCIA COUNT 8 [facility] COMPLETE INC INC AUTO&AUTO DIFRNTL WBC URNLS DIP 81178 RADHA GARCIA 8 [facility] STICK/TAB INC INC [place] [address] RADHA GARCIA THER 8 [facility] PROPH/DX INC INC 1ST >1 HR RADEX 71501 [place] TERESA, SPINE 8 MEDICAL CASEY CERVICAL IMAGING 6 OR MORE ASSOCIATE VIEWS S RADEX 55042 [place] TERESA, SPINE 8 MEDICAL CASEY THORACIC IMAGING 3 VIEWS ASSOCIATE S RADIOLOGI 22212 RADHA GARCIA C EXAM 8 [facility] CHEST 2 INC INC VIEWS FRONTAL&[place] [address] RADHAANYI GARCIA AMYLASE 8 [facility] INC INC 3D 82155 RADHA GARCIA RENDERING 8 [facility] INC INC W/INTERP& POSTPROC DIFF WORK STATION CT PELVIS 96349 RADHA GARCIA W/O 8 [facility] CONTRAST INC INC MATERIAL COMPREHEN 37554 RADHA GARCIA SIVE 8 [facility] [place] [address] RADHA GARCIA LIPASE 8 [facility] INC INC RADEX 33760 [place] TERESA, SMALL 8 MEDICAL CASEY INTESTINE IMAGING ASSOCIATE W/[place] [address] RADHA GARCIA ABDOMEN 8 [facility] W/O INC INC CONTRAST MATERIAL URNLS DIP 67698 RADHA RADHA 8 [facility] STICK/TAB INC INC LET REAGENT AUTO MICROSCOP Y BLOOD 26578 RADHA GARCIA COUNT 8 [facility] COMPLETE INC INC AUTO&[place] [address] PATHOLOGY PATHOLOGY SURG 8 & & PATHOLOGY CYTOLOGY CYTOLOGY LAB LAB GROSS&[place] [address] RADHA GARCIA THER 8 [facility] PROPH/DX INC INC 1ST >1 HR CLOSED 4525 RADHA GARCIA [ENDOSCOP 8 [facility] IC] INC INC BIOPSY OF LARGE INTESTINE COLONOSCO 32420 RADHA GARCIA PY 8 [facility] W/BIOPSY INC INC SINGLE/MU LTIPLE ANES 22082 [facility] 8 ANESTH [place]Y [place] INTESTINE OF [facility] ENDOSCOPY DISTAL DUODENUM Encounters Encounter Start End Date Code Location Performer Type Date OFFICE 84086 [facility] 7 7 [facility] T VISIT 25 PHYSICIAN MINUTES S OFFICE 73122 [facility] 7 7 SHARRON T VISIT 25 PHYSICIAN MINUTES S EMERGENCY 95049 [facility] 7 7 EMERGENCY VISIT HIGH PHYSICIAN SEVERITY& S [facility] 7 7 EMERGENCY DEPARTMEN T VISIT PHYSICIAN HIGH/URGE S NT SEVERITY EMERGENCY 22616 [facility] DEPT 7 7 EMERGENCY VISIT HIGH PHYSICIAN SEVERITY& S [facility] 28289 [facility] ME[facility] DEPT 7 7 EMERGENCY VISIT HIGH PHYSICIAN SEVERITY& S THREAT [facility] 7 7 [facility] OUTPATIEN [facility] OFFICE 18648 [facility] 7 7 SHARRON T VISIT 25 PHYSICIAN MINUTES [facility]OS[facility] 7 7 [facility] 7 7 [facility] EM[facility] 86514 SHAIL[facility] QUINTEROTO 6 6 EMERGENCY N DEPARTMEN T VISIT PHYSICIAN HIGH/URGE S NT SEVERITY OFFICE 13632 [facility] 6 6 SHARRON GELACIO T VISIT 25 PHYSICIAN MINUTES S PERIODIC 29172 [facility]ANIEL[facility] PREVENTIV 6 6 SHARRON E MED EST PATIENT PHYSICIAN 40-64YRS [facility] - OTHER 6 6 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 51027 [facility] ZA CONSULTAT 6 6 SHARRON ION NEW/ESTAB PHYSICIAN PATIENT S 60 MIN OFFICE 48703 [facility] 6 6 SH[facility]ON GELACIO ION NEW/ESTAB PHYSICIAN PATIENT S 60 MIN EMERGENCY 09819 SHAILESH FAN-M DEPT 6 6 EMERGENCY [place]WE[place] VISIT REJI HIGH PHYSICIAN SEVERITY& S THREAT [facility] RADHA - 6 6 [facility] OUTPATIEN INC T EMERGENCY 33640 RADHA 6 6 [facility]IS[facility] LOW/MODER SEVERITY HOSPITAL RADHA - 6 6 [facility] OUTPATIEN INC T EMERGENCY 67485 [facility] SWEENEY 6 6 [facility]YSICIAN [facility], [facility] T VISIT HIGH/URGE NT SEVERITY OFFICE 34051 [facility] DIEGO ALVARADO 6 6 PHYSICIAN T NEW 20 GROUP MINUTES EMERGENCY 45707 [facility] HERNANDEZ 6 6 PHYSICIAN DEPARTMEN S, [facility] T VISIT HIGH/URGE NT SEVERITY HOSPITAL RADHA - 6 6 [facility]EN [facility] T HOSPITAL RADHA - 6 6 [facility] OUTPATIEN [facility] T OFFICE 25178 [facility] SHAUN CORBINPATIBROOKE 6 6 PHYSICIAN STONE T VISIT S GROUP PA-C MUKUND 25 MINUTES HOSPITAL RADHA - 6 6 [facility] T EMERGENC[facility] 84336 [facility] 6 6 [facility] T VISIT LIMITED/M [facility] RADHA - 6 6 [facility] OUTPATIEN [facility] T EMERGENCY 63384 MILAGROS STEWART 6 6 [facility]IC[facility], [facility] T VISIT MODERATE SEVERITY HOSPITAL RADHA - 6 6 [facility] OUT[facility]EN [facility] T EMERGENCY 38536 RADHA 6 6 [facility] T VISIT LOW/MODER SEVERITY EMERGENCY 36955 MILAGROS HERNANDEZ 6 6 PHYSICIAN DEPARTMEN S, [facility] T VISIT HIGH/URGE NT SEVERITY OFFICE 32178 [facility] OUTPATIEN 6 6 PHYSICIAN T VISIT S GROUP 10 MINUTES OFFICE 33310 [facility] SHAUN OUTPATIEN 6 6 PHYSICIAN STONE T VISIT S GROUP ZUHAIR DUVAL 10 MINUTES EMERGENCY 49226 MILAGROS ESCUDERO 6 6 PHYSICIAN [facility] S, [facility] T VISIT MODERATE SEVERITY EMERGENCY 93373 RADHA 6 6 [facility] T VISIT LOW/MODER SEVERITY HOSPITAL RADHA - 6 6 [facility] H[facility]PITAL RADHA - 6 6 [facility] OUTPAT[facility]EN [facility] T EMERGENCY 89860 MILAGROS HERRERA 6 6 PHYSICIAN DEPARTMEN S, [facility] T VISIT MODERATE SEVERITY HOSPITAL RADHA - 6 6 [facility]PAT[facility]EN [facility] EMERGENCY 82335 RADHA 6 6 [facility] T VISIT LIMITED/M [facility] RADHA [facility] 6 6 [facility]EN [facility] EMERGENCY 19423 MILAGROS ESCUDERO [address] [facility], [facility] T VISIT MODERATE SEVERITY EMERGENCY 51471 RADHA 6 6 [facility] T VISIT LOW/MODER SEVERITY HOSPITAL RADHA - 6 6 [facility] HOSPITAL RADHA - 6 6 [facility] HOSPITAL RADHA - 5 5 [facility] H[facility]PITAL RADHA [facility] 5 5 [facility] OFFICE 60126 [facility] 5 5 MEDICAL KERLINE T VISIT SERV 25 FOUNDATIO MINUTES N HOSPITAL RADHA - 5 5 [facility] OUTPATIEN [facility] T EMERGENCY 38169 MILAGROS ESCUDERO DEPT 5 5 PHYSICIAN ISAAC VISIT S, PLLC HIGH SEVERITY& THREAT FUNCJ EMERGENCY 95435 RADHA 5 5 [facility] DEPARTMEN INC T VISIT LOW/MODER SEVERITY HOSPITAL RADHA - 5 5 [facility] OUTPATIEN INC T EMERGENCY 94009 MILAGROS MULTANI DEPT 5 5 PHYSICIAN JR COYNE VISIT S, PLLC HIGH SEVERITY& THREAT FUNCJ EMERGENCY 63055 RADHA 5 5 [facility] DEPARTMEN INC T VISIT HIGH/URGE NT SEVERITY OFFICE 97978 [facility] YEIMI OUTPATIEN 5 5 PHYSICIAN ISAAC T VISIT S GROUP 10 MINUTES HOSPITAL RADHA - 5 5 [facility] OUTPATIEN INC T EMERGENCY 66654 RADHA 5 5 [facility] DEPARTMEN INC T VISIT LOW/MODER SEVERITY EMERGENCY 40030 MILAGROS ESCUDERO 5 5 PHYSICIAN ISAAC [facility], [facility] T [facility]ISIT MODERATE SEVERITY OFFICE 60961 [facility] YEIMI OUTPATIEN 5 5 PHYSICIAN ISAAC T VISIT S GROUP 25 MINUTES EMERGENCY 81684 MILAGROS ESCALANTE 5 5 PHYSICIAN KETAN DEPARTMEN S, [facility] T VISIT MODERATE SEVERITY OFFICE 11698 [facility] YEIMI OUTPATIEN 5 5 PHYSICIAN ISAAC T VISIT S GROUP 15 MINUTES HOSPITAL RADHA - 5 5 [facility] OUTPATIEN INC T EMERGENCY 44504 [facility] 5 5 DEPARTMEN T VISIT HIGH/URGE NT SEVERITY EMERGENCY 27989 SUSHILA Abdalla 5 5 DEPARTMEN T VISIT MODERATE SEVERITY OFFICE 65512 [facility] YEIMI OUTPATIEN 5 5 PHYSICIAN ISAAC T VISIT S GROUP 25 MINUTES HOSPITAL RADHA - 5 5 [facility] OUTPATIEN INC T EMERGENCY 67428 [facility] HIGH/URGE NT SEVERITY EMERGENCY 30748 YEIMI YEIMI 5 5 ISAAC ISAAC [facility] T VISIT MODERATE SEVERITY HOSPITAL RADHA - 5 5 [facility] OUTPATIEN INC T OFFICE 29464 [facility] OUTPATIEN 5 5 MEDICAL T VISIT SERV 25 FOUNDATIO MINUTES N HOSPITAL RADHA - 5 5 [facility] OUTPATIEN INC T OFFICE 90600 [facility] OUTPATIEN 5 5 PHYSICIAN T VISIT S GROUP 15 MINUTES OFFICE 88914 [facility] YEIMI OUTPATIEN 5 5 PHYSICIAN ISAAC T VISIT S GROUP 15 MINUTES OFFICE 87926 [facility] YEIMI OUTPATIEN 5 5 PHYSICIAN ISAAC T VISIT S GROUP 15 MINUTES HOSPITAL RADHA - 5 5 [facility] OUTPATIEN INC T EMERGENCY 03654 RADHA 4 [address] [facility] T VISIT LOW/MODER SEVERITY HOSPITAL RADHA - 4 4 [facility] T EMERGENCY 71559 RADHA JEAN BAPTISTE 4 4 [facility] T VISIT P HIGH/URGE NT SEVERITY EMERGENCY 46615 RADHA DE JESUS 4 4 [facility] T VISIT P HIGH/URGE NT SEVERITY HOSPITAL RADHA Terrazas 4 4 [facility] T EMERGENCY 38413 RADHA GUSMAN 4 4 [facility] T VISIT P LOW/MODER SEVERITY EMERGENCY 02832 RADHA 4 [address] [facility] T VISIT HIGH/URGE NT SEVERITY HOSPITAL RADHA - 4 4 [facility] T EMERGENCY 59967 SEN HCATTERJEE 4 4 NEAL NEAL DEPARTMEN T VISIT HIGH/URGE NT SEVERITY OFFICE 70661 [place] [facility] OUTPATIEN [address] T VISIT SERV 25 FOUNDATIO MINUTES [facility]OSPITAL [facility] 63414 MARLI CALLES [facility] DEPT 4 4 VISIT HIGH SEVERITY& THREAT [facility] RADHA - 4 4 [facility] T OFFICE 37913 [facility] ANT OUTPATIEN 4 4 MEDICAL T VISIT SERV 15 FOUNDATIO MINUTES [facility] RADHA - 4 4 [facility] T OFFICE 27018 [facility] PHYSICIAN ISAAC T NEW 30 S GROUP MINUTES EMERGENCY 20031 [facility] DEPT 4 4 [facility] VISIT [facility]IGH SEVERITY& THREAT [facility] EMERGENCY 14936 [facility] DEPT 4 4 [facility] VISIT HIGH SEVERITY& THREAT [facility] EMERGENCY 76930 [facility] 4 4 [facility] DEPARTMEN T VISIT HIGH/URGE NT SEVERITY EMERGENCY 71899 [facility] 4 4 [facility] DEPARTMEN T VISIT HIGH/URGE NT SEVERITY EMERGENCY 83340 ALFARIS ALFARIS 4 4 [facility] DEPARTMEN T VISIT HIGH/URGE NT SEVERITY EMERGENCY 68931 KIT KIT 4 4 IMT IMT DEPARTMEN T VISIT MODERATE SEVERITY EMERGENCY 37897 YEIMI ESCUDERO 4 4 ISAAC ISAAC DEPARTMEN T VISIT MODERATE SEVERITY EMERGENCY 25482 YEIMI ESCUDERO DEPT 4 4 ISAAC ISAAC VISIT HIGH SEVERITY& THREAT [facility] EMERGENCY 47917 [facility] MCNAMARA 4 4 [facility] BRO DEPARTMEN EMERGENCY T VISIT PHYS HIGH/URGE NT SEVERITY EMERGENCY 81374 [facility] 4 4 CONRAD III JUAN ANTONIO DEPARTMEN EMERGENCY T VISIT PHYS MODERATE SEVERITY OFFICE 59935 RIGOBERTO ALVARADO 4 4 LEE ANN LEE ANN T VISIT 15 MINUTES Emergency LIZETTE Calles MD (ER) 4 20:36 4 22:44 [facility] EMERGENCY 56563 MARLI RAPP DEPT 4 4 VISIT HIGH SEVERITY& THREAT [facility] Emergency LIZETTE MCNAMARA MD (ER) 4 18:43 4 20:06 [facility] EMERGENCY 87251 ANDERS MCNAMARA 4 4 [facility] DEPARTMEN T VISIT HIGH/URGE NT SEVERITY OFFICE 50307 YARA ANT YARA ANT OUTPATIEN 3 3 T VISIT 15 MINUTES OFFICE 21370 RIGOBERTO ALVARADO 3 3 LEE ANN LEE ANN T VISIT 15 MINUTES Emergency LIZETTE Escudero MD (ER) 3 17:45 3 18:[address] [facility] EMERGENCY 71442 YEIMI ESCUDERO 3 3 ISAAC ISAAC DEPARTMEN T VISIT MODERATE SEVERITY Emergency LIZETTE Calles MD (ER) 3 16:38 3 17:11 [facility] EMERGENCY 29093 MARLI RAPP 3 3 DEPARTMEN T VISIT MODERATE SEVERITY Emergency LIZETTE Escudero MD (ER) 3 20:44 3 21:[address] [facility] OFFICE 34196 RIGOBERTO ALVARADO 3 3 LEE ANN LEE ANN T VISIT 15 MINUTES Emergency LIZETTE Calles MD (ER) 3 14:40 3 16:39 [facility] EMERGENCY 79648 LIAM RAPP 3 3 EMERGENCY DEPARTMEN SERVICES T VISIT HIGH/URGE NT SEVERITY HOSPITAL UNIVERSIT - 3 3 [facility] T Emergency LIZETTE DIEZ (ER) 3 16:51 3 18:46 [facility] A EMERGENCY 89166 CHARY DIEZ 3 3 FERNANDO KING DEPARTMEN T VISIT HIGH/URGE NT SEVERITY EMERGENCY 97334 RADHA 3 3 [facility] T VISIT LOW/MODER SEVERITY HOSPITAL RADHA - 3 3 [facility] T Emergency LIZETTE Escudero MD (ER) 3 21:28 3 22:25 [facility] RADHA - 3 3 [facility] T EMERGENCY 21892 RADHA 3 3 [facility] DEPARTMEN INC T VISIT LOW/MODER SEVERITY EMERGENCY 16673 YEIMI ESCUDERO DEPT 3 3 ISAAC ISAAC VISIT HIGH SEVERITY& THREAT [facility] Emergency LIZETTE DIEZ (ER) 3 14:18 3 16:42 [facility] EMERGENCY 62512 CHARY DIEZ 3 3 FERNANDO KING DEPARTMEN T VISIT HIGH/URGE NT SEVERITY EMERGENCY 43877 RADHA 3 3 [facility] INC T VISIT LOW/MODER SEVERITY HOSPITAL RAD[facility] - 3 3 [facility] OUTPATIEN INC T Emergency LIZETTE Escudero MD (ER) 3 21:00 3 22:57 [facility] RADHA - 3 3 [facility] OUTPATIEN INC T EMERGENCY 39372 RAD[facility] 3 3 [facility] DEPARTMEN INC T VISIT MODERATE SEVERITY EMERGENCY 60446 YEIMI ESCUDERO 3 3 ISAAC ISAAC DEPARTMEN T VISIT HIGH/URGE NT SEVERITY HOSPITAL RADHA Sr 3 [facility] INPATIENT INC OFFICE 77223 WENDY NGUYEN CONSULTAT 3 3 BOONE SAMUELS NEW/ESTAB PATIENT 60 MIN HOSPITAL RADHA - 3 3 [facility] OUTPATIEN [facility] T HOSPITAL RADHA [facility] 3 3 [facility] OUTPATIEN [facility] T EMERGENCY 65570 RADHA 3 3 [facility] DEPARTMEN [facility] T VISIT MODERATE SEVERITY EMERGENCY 03693 MICHAEL RODRIGUEZ DEPT 3 3 III JUAN ANTONIO III JUAN ANTONIO VISIT HIGH SEVERITY& THREAT [facility] OFFICE 50100 YARA ANT YARA ANT OUTPATIEN 3 3 T VISIT 15 MINUTES EMERGENCY 00471 LIAM RAPP DEPT 2 2 EMERGENCY VISIT SERVICES HIGH SEVERITY& THREAT [facility] RADHA - 2 2 [facility] OUTPATIEN [facility] EMERGENCY 25983 RADHA 2 2 [facility] DEPARTMEN [facility] T VISIT HIGH/URGE NT SEVERITY OFFICE 35461 RIGOBERTO FRANKLIN OUTPATIEN 2 2 LEE ANN LEE ANN T VISIT 15 MINUTES HOSPITAL RADHA - 2 2 [facility] OUTPATIEN [facility] OFFICE 97320 YARA ANT YARA ANT OUTPATIEN 2 2 T VISIT 25 MINUTES HOSPITAL RAD[facility] - 2 2 [facility] T EMERGENCY 51063 RADHA 2 2 [facility] DEPARTMEN [facility] T VISIT MODERATE SEVERITY EMERGENCY 20406 YEIMI ESCUDERO 2 2 [facility] H[facility]URGE NT SEVERITY H[facility]PITAL RADHA - 2 2 [facility] OUTPATIEN [facility] T EMERGENCY 58757 RADHA 2 2 [facility] DEPARTMEN [facility] T VISIT LOW/MODER SEVERITY HOSPITAL RADHA - 2 2 [facility] OUTPATIEN [facility] T EMERGENCY 55393 YEIMI ESCUDERO 2 2 ISAAC ISAAC DEPARTMEN T VISIT HIGH/URGE NT SEVERITY HOSPITAL [facility] - 2 2 [facility] INC T OFFICE 83240 YARA TO OUTPATIEN 2 2 T VISIT 25 MINUTES HOSPITAL [facility] - 2 2 [facility] T HOSPITAL RAD[facility] - 2 2 [facility] OUT[facility] INC T EMERGENCY 46436 MICHAEL RODRIGUEZ 2 2 III JUAN ANTONIO III JUAN ANTONIO DEPARTMEN T VISIT HIGH/URGE NT SEVERITY EMERGENCY 94834 MICHAEL RODRIGUEZ DEPT 2 2 III JUAN ANTONIO III JUAN ANTONIO VISIT HIGH SEVERITY& THREAT FUNCJ EMERGENCY 97981 RADHA 2 2 [facility] DEPARTMEN INC T VISIT HIGH/URGE NT SEVERITY HOSPITAL [facility] - 2 2 [facility] T HOSPITAL RAD[facility] - 2 2 [facility] T EMERGENCY 85621 RADHA 2 2 [facility] DEPARTMEN INC T VISIT MODERATE SEVERITY EMERGENCY 37774 LIAM ESCUDERO DEPT 2 2 EMERGENCY ISAAC VISIT SERVICES HIGH SEVERITY& THREAT FUNJ OFFICE 33883 RIGOBERTO FRANKLIN OUTPATIEN 2 2 LEE ANN LEE ANN T VISIT 15 MINUTES EMERGENCY 09986 RADHA 2 2 [facility] DEPARTMEN INC T VISIT MODERATE SEVERITY EMERGENCY 58053 LIAM ESCUDERO 2 2 EMERGENCY ISAAC DEPARTMEN SERVICES T VISIT HIGH/URGE NT SEVERITY HOSPITAL [facility] - 2 2 [facility] T EMERGENCY 12559 RAD[facility] 2 2 [facility] DEPARTMEN INC T VISIT LIMITED/M [facility] RADHA - 2 2 [facility] OUTPATIEN INC T EMERGENCY 19353 LIAM ESCUDERO 2 2 EMERGENCY [facility] DEPARTMEN SERVICES T VISIT HIGH/URGE NT SEVERITY EMERGENCY 46790 [facility] 2 2 [facility] DEPARTMEN INC T VISIT MODERATE SEVERITY EMERGENCY 98289 LIAM ESCUDERO 2 [address] [facility]ISIT HIGH/URGE NT SEVERITY [facility]OSP[facility] - 2 2 [facility] OUT[facility] T OFFICE 29985 RIGOBERTO FRANKLIN OUTPATIEN 2 2 LEE ANN LEE ANN T VISIT 15 MINUTES EMERGENCY 13988 LIAM RODRIGUEZ 2 2 EMERGENCY III [facility] SERVICES T VISIT HIGH/URGE NT SEVERITY HOSPITAL RADHA - 2 2 [facility] OUT[facility]IEN INC T EMERGENCY 45441 RAD[facility] 2 2 [facility] V[facility]MODER [facility]ITY [facility] - 2 2 [facility] OUT[facility] INC T OFFICE 54939 RIGOBERTO FRANKLIN OUTPATIEN 2 2 LEE ANN LEE ANN T VISIT 15 MINUTES HOSPITAL [facility] - 1 1 [facility] INC T EMERGENCY 33467 RAD[facility] 1 1 [facility] HIGH/URGE NT SEVERITY EMERGENCY 49905 MICHAEL RODRIGUEZ DEPT 1 1 III JUAN ANTONIO III JUAN ANTONIO VISIT HIGH SEVERITY& THREAT FUNCJ OFFICE 58727 YARA ANT YARA ANT OUTPATIEN 1 1 T VISIT 25 MINUTES HOSPITAL [facility] - 1 1 [facility] - 1 1 [facility] OUTPATIEN INC T EMERGENCY 28570 LIAM SPRAGUE DEPT 1 1 EMERGENCY VISIT SERVICES HIGH SEVERITY& THREAT FUNCJ EMERGENCY 57818 [facility] 1 1 [facility] DEPARTMEN INC T VISIT HIGH/URGE NT SEVERITY OFFICE 31251 RIGOBERTO FRANKLIN OUTPATIEN 1 1 LEE ANN LEE ANN T VISIT 15 MINUTES EMERGENCY 14265 [facility] 1 1 [facility] DEPARTMEN INC T VISIT LOW/MODER SEVERITY HOSPITAL [facility] - 1 1 [facility] OUTPATIEN INC T EMERGENCY 90188 LIAM TRINH 1 1 EMERGENCY DEPARTMEN SERVICES T VISIT HIGH/URGE NT SEVERITY HOSPITAL [facility] - 1 1 [facility] T [facility] - 1 1 [facility] OUTPATIEN INC T EMERGENCY 80091 LIAM ESCUDERO 1 1 EMERGENCY IS[facility] DEPARTMEN SERVICES T VISIT HIGH/URGE NT SEVERITY EMERGENCY 36113 [facility] 1 1 [facility] DEPARTMEN INC T VISIT LOW/MODER SEVERITY EMERGENCY 63611 [facility] 1 1 [facility] DEPARTMEN INC T VISIT MODERATE SEVERITY EMERGENCY 37668 LIAM SPRAGUE 1 1 EMERGENCY DEPARTMEN SERVICES T VISIT HIGH/URGE NT SEVERITY HOSPITAL [facility] - 1 1 [facility] OUTPATIEN INC T OFFICE 68796 ANALI TO OUTPATIEN 1 1 MEDICAL T VISIT SERV 25 FOUNDATIO MINUTES HOSPITAL [facility] - 1 1 [facility] OUTPAT[facility]EN INC T EMERGENCY 65406 [facility] 1 1 [facility] DEPARTMEN INC T VISIT HIGH/URGE NT SEVERITY EMERGENCY 54530 LIAM RODRIGUEZ DEPT 1 1 EMERGENCY III JUAN ANTONIO VISIT SERVICES HIGH SEVERITY& THREAT [facility] RADHA - 1 1 [facility] OUTPATIEN INC T EMERGENCY 46002 RAD[facility] 1 1 [facility] DEPARTMEN INC T VISIT HIGH/URGE NT SEVERITY EMERGENCY 98057 LIAM ESCUDERO DEPT 1 1 EMERGENCY ISAAC VISIT SERVICES HIGH SEVERITY& THREAT [facility] - 1 1 [facility] - 1 1 [facility] OUTPAT[facility]EN INC T EMERGENCY 35188 [facility] 1 1 [facility] DEPARTMEN INC T VISIT MODERATE SEVERITY EMERGENCY 46571 LIAM TRINH 1 1 EMERGENCY DEPARTMEN SERVICES T VISIT HIGH/URGE NT SEVERITY OFFICE 29736 RIGOBERTO ALVARADO 1 1 LEE ANN LEE ANN T VISIT 15 MINUTES OFFICE 76347 RIGOBERTO ALVARADO 1 1 LEE ANN LEE ANN T VISIT 15 MINUTES EMERGENCY 52411 [facility] 1 1 [facility] DEPARTMEN INC T VISIT HIGH/URGE NT SEVERITY HOSPITAL [facility] - 1 1 [facility] OUTPATIEN INC T EMERGENCY 86246 LIAM RODRIGUEZ DEPT 1 1 EMERGENCY III JUAN ANTONIO VISIT SERVICES HIGH SEVERITY& THREAT FUNCJ OFFICE 79718 RAD[facility] THOMASON OUTPATIEN [address] RADHA - 1 1 [facility] OUTPAT[facility] INC T EMERGENCY 26882 [facility] 1 1 [facility] DEPARTMEN INC T VISIT LOW/MODER SEVERITY HOSPITAL [facility] - 1 1 [facility] OUTPATIEN INC T EMERGENCY 96731 LIAM ESCUDERO DEPT 1 1 EMERGENCY ISAAC VISIT SERVICES HIGH SEVERITY& THREAT FUNCJ OFFICE 16861 ANALI TO OUTPATIEN 0 0 MEDICAL T VISIT SERV 25 FOUNDATIO MINUTES EMERGENCY 55580 LIAM ESCUDERO 0 0 EMERGENCY ISA[facility] DEPARTMEN SERVICES T VISIT HIGH/URGE NT SEVERITY OFFICE 53080 RIGOBERTO ALVARADO 0 0 LEE ANN LEE ANN T VISIT 15 MINUTES OFFICE 27128 RIGOBERTO FRANKLIN OUTPATIEN 0 0 LEE ANN LEE ANN T VISIT 15 MINUTES EMERGENCY 20152 LIAM ESCUDERO 0 0 EMERGENCY [facility] DEPARTMEN SERVICES T VISIT HIGH/URGE NT SEVERITY HOSPITAL RAD[facility] - 0 0 [facility] OUTPATIEN INC T EMERGENCY 75928 [facility] 0 0 [facility] DEPARTMEN INC T VISIT LIMITED/M INOR PROB OFFICE 04376 RIGOBERTO FRANKLIN OUTPATIEN 0 0 LEE ANN LEE ANN T VISIT 15 MINUTES OFFICE 19686 RIGOBERTO FRANKLIN OUTPATIEN 0 0 LEE ANN LEE ANN T VISIT 15 MINUTES HOSPITAL [facility] - 0 0 [facility] OUTPAT[facility] INC T OFFICE 02521 ANALI [facility] OUTPAT[facility] 0 0 MEDICAL T VISIT SERV 25 FOUNDATIO MINUTES [facility] RADHA - 0 0 [facility] OUTPATIEN INC T EMERGENCY 21827 RADHA 0 0 [facility] DEPARTMEN INC T VISIT LIMITED/M INOR PROB EMERGENCY 45539 LIAM ESCUDERO 0 0 EMERGENCY [facility] DEPARTMEN SERVICES T VISIT HIGH/URGE NT SEVERITY HOSPITAL [facility] - 0 0 [facility] OUTPATIEN INC T EMERGENCY 47456 LIAM ESCUDERO, 0 0 EMERGENCY [facility] DEPARTMEN SERVICES T VISIT HIGH/URGE ASSOCIATE NT S SEVERITY EMERGENCY 19423 [facility] 0 0 [facility] DEPARTMEN INC T VISIT LIMITED/M INOR PROB OFFICE 82625 RIGOBERTO FRANKLIN OUTPATIEN 0 0 MAIRA Bernal T VISIT 15 MINUTES OFFICE 00470 RIGOBERTO FRANKLIN OUTPATIEN 0 0 MAIRA Bernal T VISIT 15 MINUTES HOSPITAL [facility] - 0 0 [facility] OUTPATIEN INC T EMERGENCY 59402 LIAM ESCUDERO, 0 0 EMERGENCY SARAH S DEPARTMEN SERVICES T VISIT HIGH/URGE ASSOCIATE NT S SEVERITY EMERGENCY 57174 [facility] 0 0 [facility] DEPARTMEN INC T VISIT LOW/MODER SEVERITY OFFICE 09569 RIGOBERTO FRANKLIN OUTPATIEN 0 0 MAIRA Bernal T VISIT 15 MINUTES OFFICE 88822 JENNY MORALES 0 0 MEDICAL [place] T VISIT SERV 25 FOUNDATIO MINUTES OFFICE 96059 RIGOBERTO FRANKLIN OUTPATIEN 0 0 MAIRA Bernal T VISIT 15 MINUTES EMERGENCY 42540 LIAM RODRIGUEZ DEPT 0 0 EMERGENCY III, VISIT SERVICES REY HIGH SEVERITY& ASSOCIATE THREAT S [facility] EMERGENCY 79333 RADHA 0 0 [facility] DEPARTMEN INC T VISIT MODERATE SEVERITY HOSPITAL [facility] - 0 0 [facility] OUTPATIEN INC T EMERGENCY 32263 LIAM RODRIGUEZ DEPT 0 0 EMERGENCY III, VISIT SERVICES REY HIGH SEVERITY& ASSOCIATE THREAT S [facility] RADHA - 0 0 [facility] OUTPATIEN INC T OFFICE 13659 RIGOBERTO FRANKLIN OUTPATIEN 0 0 MAIRA Bernal T VISIT 15 MINUTES EMERGENCY 78923 RAD[facility] 0 0 [facility] DEPARTMEN INC T VISIT MODERATE SEVERITY HOSPITAL [facility] - 0 0 [facility]PAT[facility]EN [facility] T [facility] - 9 9 [facility] OUTPATIEN INC T OFFICE 60982 RIGOBERTO FRANKLIN OUTPATIEN 9 9 MAIRA Bernal T VISIT 15 MINUTES OFFICE 82638 JENNY MORALES 9 9 MEDICAL [place] T VISIT SERV 15 FOUNDATIO MINUTES OFFICE 83991 JENNY WILKERSON 9 9 S KP Bernal T NEW 30 SERVICES MINUTES PSC OFFICE 68956 RIGOBERTO FRANKLIN OUTPATIEN 9 9 MAIRA Bernal T VISIT 15 MINUTES EMERGENCY 86040 LIAM ESCUDERO, 9 9 [facility] T VISIT MODERATE ASSOCIATE SEVERITY S HOSPITAL [facility] - 9 9 [facility] OUTPATIEN INC T OFFICE 68794 JENNY MORALES 9 9 PETRA CALVIN T VISIT SERV 25 FOUNDATIO MINUTES OFFICE 62176 RIGOBERTO FRANKLIN OUTPATIEN 9 9 MAIRA Bernal T VISIT 15 MINUTES OFFICE 98587 RIGOBERTO FRANKLIN OUTPATIEN 9 9 MAIRA Bernal T VISIT 15 MINUTES HOSPITAL [facility] - 9 9 [facility] OUTPATIEN INC T EMERGENCY 65724 LIAM OAKLEY, 9 9 EMERGENCY [facility] DEPARTMEN SERVICES T VISIT HIGH/URGE ASSOCIATE NT S SEVERITY EMERGENCY 82966 RAD[facility] 9 9 [facility] DEPARTMEN INC T VISIT LIMITED/M INOR PROB EMERGENCY 90342 LIAM ESCUDERO, 9 9 [facility] T VISIT MODERATE ASSOCIATE SEVERITY S HOSPITAL [facility] - 9 9 [facility] OUTPATIEN INC T EMERGENCY 48786 RAD[facility] 9 9 [facility] DEPARTMEN INC T VISIT LOW/MODER SEVERITY OFFICE 54085 RIGOBERTO FRANKLIN OUTPATIEN 9 9 MAIRA Bernal T VISIT 15 MINUTES OFFICE 07748 SIENNA EL OUTPATIEN 9 9 KP KP T VISIT 25 MINUTES HOSPITAL RAD[facility] - 9 9 [facility] OUTPATIEN INC T OFFICE 09071 RIGOBERTO FRANKLIN OUTPATIEN 9 9 MAIRA Bernal T VISIT 15 MINUTES HOSPITAL [facility] - 9 9 [facility] OUTPATIEN INC T OFFICE 18813 SIENNA EL CONSULTAT 9 9 KP SAMUELS MAGGIE/ESTAB PATIENT 80 MIN HOSPITAL [facility] - 9 9 [facility] OUTPATIEN INC T OFFICE 62764 JENNY MORALSE 9 9 PETRA SIMPSON T VISIT SERV 25 FOUNDATIO MINUTES EMERGENCY 19633 LIAM FISHMAN, 9 9 EMERGENCY MILENA DEPARTMEN SERVICES O T VISIT HIGH/URGE ASSOCIATE NT S SEVERITY EMERGENCY 07612 [facility] 9 9 [facility] DEPARTMEN INC T VISIT LIMITED/M INOR PROB [facility]OSPITAL [facility] - 9 9 [facility] OUTPATIEN INC T OFFICE 19578 RIGOBERTO FRANKLIN OUTPATIEN 9 9 MAIRA Bernal T VISIT 15 MINUTES HOSPITAL [facility] - 9 9 [facility] OUTPATIEN INC T EMERGENCY 43006 [facility] 9 9 [facility] DEPARTMEN INC T VISIT LOW/MODER SEVERITY EMERGENCY 67745 LIAM ESCUDERO, 9 9 EMERGENCY SARAH S DEPARTMEN SERVICES T VISIT MODERATE ASSOCIATE SEVERITY S OFFICE 05267 RIGOBERTO FRANKLIN OUTPATIEN 9 9 MAIRA Bernal T VISIT 15 MINUTES EMERGENCY 96783 [facility], 9 9 [facility] SARAH DEPARTMEN EMERGENCY T VISIT PHYS INC HIGH/URGE NT SEVERITY EMERGENCY 47965 LIAM CARRION DEPT 9 9 EMERGENCY [place] VISIT SERVICES HIGH SEVERITY& ASSOCIATE THREAT S [facility] RAD[facility] - 9 9 [facility] OUTPATIEN INC T EMERGENCY 75445 RAD[facility] 9 9 [facility] DEPARTMEN INC T VISIT MODERATE SEVERITY OFFICE 41003 RIGOBERTO FRANKLIN OUTPATIEN 9 9 MAIRA Bernal T VISIT 15 MINUTES HOSPITAL [facility] - 9 9 [facility] OUTPATIEN INC T OFFICE 62747 JENNY MORALES 9 9 PETRA SIMPSON T VISIT SERV 25 FOUNDATIO MINUTES OFFICE 32266 RIGOBERTO FRANKLIN OUTPATIEN 9 9 MAIRA Bernal T VISIT 15 MINUTES HOSPITAL [facility] - 9 9 [facility] OUTPATIEN INC T EMERGENCY 66141 [facility] 9 9 [facility] DEPARTMEN INC T VISIT LOW/MODER SEVERITY EMERGENCY 99700 LIAM OAKLEY, 9 9 EMERGENCY [facility] DEPARTMEN SERVICES T VISIT MODERATE ASSOCIATE SEVERITY S HOSPITAL [facility] - 9 9 [facility] OUTPATIEN INC T OFFICE 34689 RIGOBERTO FRANKLIN OUTPATIEN 9 9 MAIRA Bernal T VISIT 15 MINUTES HOSPITAL [facility] - 9 9 [facility] EMERGENCY 67408 MARLEN COOPER DEPT 9 9 CON[facility] [place] VISIT EMERGENCY HIGH PHYS INC SEVERITY& THREAT FUN OFFICE 98519 RIGOBERTO FRANKLIN OUTPATIEN 9 9 MAIRA Bernal T VISIT 15 MINUTES EMERGENCY 26695 LIAM ESCUDERO 9 9 EMERGENCY [facility] DEPARTMEN SERVICES T VISIT HIGH/URGE ASSOCIATE NT S SEVERITY EMERGENCY 83277 [facility] 9 9 [facility] DEPARTMEN INC T VISIT LOW/MODER SEVERITY HOSPITAL [facility] - 9 9 [facility] OUTPATIEN INC T OFFICE 61624 RIGOBERTO FRANKLIN OUTPATIEN 9 9 MAIRA Bernal T VISIT 15 MINUTES HOSPITAL [facility] - 9 9 [facility] OUTPATIEN INC T EMERGENCY 99519 LIAM OAKLEY, DEPT 9 9 EMERGENCY JUDAH P VISIT SERVICES HIGH SEVERITY& ASSOCIATE THREAT S FUNJ EMERGENCY 84091 [facility] 9 9 [facility] DEPARTMEN INC T VISIT HIGH/URGE NT SEVERITY OFFICE 88005 RIGOBERTO FRANKLIN OUTPATIEN 9 9 MAIRA Bernal T VISIT 15 MINUTES EMERGENCY 86130 [facility] 9 9 [facility] DEPARTMEN INC T VISIT LOW/MODER SEVERITY EMERGENCY 97679 JOSE ESCUDERO, 9 9 [facility] T VISIT ON HIGH/URGE NT SEVERITY HOSPITAL RAD[facility] - 9 9 [facility] T OFFICE 27677 WOMEN'S DELCID, CONSULTAT 9 9 [facility] NEW/ESTAB PATIENT RIKKI 60 MIN [facility] EMERGENCY 70411 MARLEN GERMAN, DEPT 9 9 [facility] [place] VISIT EMERGENCY HIGH PHYS INC SEVERITY& THREAT FUNJ OFFICE 88929 RIGOBERTO FRANKLIN OUTPATIEN 9 9 MAIRA Bernal T VISIT 15 MINUTES EMERGENCY 02115 JOSE ESCUDERO, 9 9 [facility] VISIT ON LOW/MODER SEVERITY EMERGENCY 17131 [facility] 9 9 [facility] V[facility]/M [facility] RAD[facility] - 9 9 [facility] OUTPAT[facility]EN INC T OFFICE 95032 RIGOBERTO FRANKLIN OUTPATIEN 9 9 MAIRA Bernal T VISIT 15 MINUTES EMERGENCY 23546 JOSE ESCUDERO, 9 9 [facility] T VISIT ON MODERATE SEVERITY HOSPITAL RAD[facility] - 9 9 [facility] INC T EMERGENCY 50159 [facility] 9 9 [facility] T VISIT LOW/MODER SEVERITY OFFICE 05958 RIGOBERTO FRANKLIN OUTPATIEN 9 9 MAIRA Bernal T VISIT 15 MINUTES EMERGENCY 39666 [facility] AUDREY, DEPT 9 9 CONRAD Wolfe VISIT EMERGENCY HIGH PHYS INC SEVERITY& THREAT FUNCJ EMERGENCY 88513 [facility] 9 9 [facility] DEPARTMEN INC T VISIT LIMITED/M INOR PROB [facility] - 9 9 [facility] OUTPATIEN INC T EMERGENCY 29845 JOSE ESCUDERO, 9 9 [facility] T VISIT ON MODERATE SEVERITY OFFICE 41777 RIGOBERTO FRANKLIN OUTPATIEN 8 8 MAIRA Bernal MAIRA Gabe T VISIT 15 MINUTES OFFICE 57962 RIGOBERTO FRANKLIN OUTPATIEN 8 8 MAIRA Bernal T VISIT 15 MINUTES OFFICE 38946 JENNY MORALES 8 8 PETRA SIMPSON T VISIT SERV 15 FOUNDATIO MINUTES HOSPITAL [facility] - 8 8 [facility] INC T OFFICE 69593 RIGOBERTO FRANKLIN OUTPATIEN 8 8 MAIRA Bernal T VISIT 15 MINUTES OFFICE 49151 RIGOBERTO FRANKLIN OUTPATIEN 8 8 AMIRA Bernal T VISIT 15 MINUTES OFFICE 62089 WENDY NGUYEN OUTGENARO 8 8 , CALEB ELLIS T VISIT 15 MINUTES HOSPITAL RAD[facility] - 8 8 [facility] T OFFICE 59913 JUANASTBDU SCHULSTAD CONSULTAT 8 8 CALEB KARL ION NEW/ESTAB PATIENT 60 MIN EMERGENCY 49523 [facility] 8 8 [facility] DEPARTMEN INC T VISIT HIGH/URGE NT SEVERITY OFFICE 19532 RIGOBERTO FRANKLIN OUTPATIEN 8 8 MAIRA RAO W T VISIT 15 MINUTES HOSPITAL [facility] - 8 8 [facility] OUTPATIEN INC T OFFICE 39850 JENNY MORALES 8 8 MEDICAL CALVIN T VISIT SERV 25 FOUNDATIO MINUTES OFFICE 39788 RIGOBERTO FRANKLIN OUTPATIEN 8 8 MAIRA Bernal T VISIT 15 MINUTES OFFICE 10899 RIGOBERTO FRANKLIN OUTPATIEN 8 8 MAIRA Bernal T VISIT 15 MINUTES EMERGENCY 95845 [facility] 8 8 [facility] DEPARTMEN INC T VISIT LIMITED/M INOR PROB HOSPITAL [facility] - 8 8 [facility] OUTPATIEN INC T OFFICE 06830 RIGOBERTO FRANKLIN OUTPATIEN 8 8 MAIRA Bernal T VISIT 15 MINUTES OFFICE 32426 JENNY MORALES 8 8 MEDICAL CAL[facility]IN T VISIT SERV 25 FOUNDATIO MINUTES HOSPITAL UNIVERS - 8 8 Y OUTPATI HOSPITAL T EMERGENCY 31747 ANALI RYAN, 8 8 MEDICAL ADRIAN T DEPARTMEN SERV T VISIT FOUNDATIO HIGH/URGE NT SEVERITY EMERGENCY 19782 UNIVERSIT DEPT 8 8 Y VISIT HOSPITAL HIGH SEVERITY& THREAT FUNCJ OFFICE 23881 RIGOBERTO FRANKLIN OUTPATIEN 8 8 MAIRA Bernal T VISIT 15 MINUTES EMERGENCY 34311 [facility] 8 8 [facility] DEPARTMEN INC T VISIT LIMITED/M INOR PROB HOSPITAL [facility] - 8 8 [facility]PAT[facility] T [facility]OSPITAL [facility] - 8 8 [facility] OUTPAT[facility] INC T EMERGENCY 60699 [facility] 8 8 [facility] DEPARTMEN INC T VISIT MODERATE SEVERITY [facility]OSPITAL [facility] - 8 8 [facility] T [facility] - 8 8 [facility] INC T EMERGENCY 31981 JOSE CARRION, 8 8 [facility] T VISIT ON HIGH/URGE NT SEVERITY HOSPITAL RAD[facility] - 8 8 [facility] OUTPATIEN [facility] T EMERGENCY 86672 JOSE CARRION, 8 8 [facility] T VISIT ON HIGH/URGE NT SEVERITY OFFICE 53147 JENNY MORALES 8 8 MEDICAL [facility] T VISIT SERV 15 FOUNDATIO MINUTES OFFICE 38154 RIGOBERTO FRANKLIN [facility] 8 8 MAIRA Bernal T VISIT 15 MINUTES HOSPITAL RAD[facility] - 8 8 [facility] OUTPATIEN [facility] T EMERGENCY 27136 [facility] T VISIT LIMITED/M INOR PROB HOSPITAL RADHA - 8 8 [facility] OUTPATIEN [facility] T EMERGENCY 18380 [facility] T VISIT LOW/MODER SEVERITY OFFICE 10965 JENNY MORALES 8 8 [facility] T [facility]ISIT SERV 25 FOUNDATIO MINUTES HOSPITAL RADHA - 8 8 [facility] OUTPATIEN [facility] T HOSPITAL RADHA [facility] 8 8 [facility] OUTPATIEN [facility] T EMERGENCY 31091 [facility] 8 8 [facility] T VISIT LOW/MODER SEVERITY OFFICE 44379 WENDY NGUYEN CONSULTAT 8 8 , CALEB ELLIS NEW/ESTAB PATIENT 30 MIN HOSPITAL [facility] - 8 8 [facility] T EMERGENCY [id number] [facility] VIS[facility] LOW/MODER SEVERITY EMERGENCY 69180 [facility] 8 8 [facility] T VISIT LOW/MODER SEVERITY [facility]OSPITAL [facility] - 8 8 [facility] T OFFICE [id number] RIGOBERTO FRANKLIN OUTPATIEN 8 8 MAIRA Bernal T VISIT 15 MINUTES EMERGENCY 37755 [facility] 8 8 [facility] DE[facility] T VISIT LIMITED/M [facility] - 8 8 [facility] T OFFICE [id number] YARA LIVINGSTON OUTPATIEN 8 8 [facility] T VISIT 25 MINUTES HOSPITAL [facility] - 8 8 [facility] T EMERGENCY 40285 [facility] 8 8 [facility] DE[facility] T VISIT LOW/MODER SEVERITY [facility]OSPITAL [facility] - 8 8 [facility] T OFFICE [id number] JENNY OMRALES 8 8 [facility] T VISIT SERV 15 FOUNDATIO MINUTES HOSPITAL [facility] - 8 8 [facility] T EMERGENCY 89552 [facility] 8 8 [facility] DE[facility] T VISIT LIMITED/M INOR PROB OFFICE [id number] RIGOBERTO FRANKLIN OUTPATIEN 8 8 MAIRA Bernal T NEW 30 MINUTES HOSPITAL [facility] - 8 8 [facility] T EMERGENCY 34525 [facility] 8 8 [facility] DEPART[facility] INC T VISIT LOW/MODER SEVERITY EMERGENCY 12232 RAD[facility] GILLIAM, 8 8 [facility] T VISIT PROF SERV MODERATE SEVERITY HOSPITAL [facility] - 8 8 [facility] OUT[facility] T EMERGENCY 72604 [facility] GILLIAM, 8 8 [facility] T VISIT PROF SERV MODERATE SEVERITY EMERGENCY 02313 [facility] 8 8 [facility] T VISIT LOW/MODER SEVERITY EMERGENCY 39380 [facility] 8 8 [facility] T VISIT LOW/MODER SEVERITY [facility]OSPITAL [facility] - 8 8 [facility] T OFFICE 03034 JENNY MORALES 8 8 PETRA SIMPSON T VISIT SERV 25 FOUNDATIO MINUTES EMERGENCY 33006 RADHA 8 [address] [facility] T VISIT MODERATE [facility]VERITY HOSPITAL [facility] - 8 8 [facility] 8 8 [facility]
--- OUTSIDE RECORDS SUMMARY | 2016-09-15 15:10 | External Medical Summary Rpt ---
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 HOSPITAL [address] [facility] DISCHARGE 7 SHARRON DAY MANAGEMEN PHYSICIAN T > 30 S MIN SBSQ [address] CARE/DAY 25 PHYSICIAN MINUTES S SBSQ [address]/DAY 35 [facility] [address]/DAY 35 PHYSICIAN MINUTES S RADIOLOGI 08187 RADIOLOGY CLAYTON Jones EXAMINATI ASSOCIATE ON CHEST S OF [facility] SINGLE VIEW FRONTAL CRITICAL [address] [place] [address] SHARRON ILL/INJUR ED PHYSICIAN PATIENT S INIT 30-74 MIN CRITICAL 69118 [facility] 7 SHARRON ILL/INJUR ED PHYSICIAN PATIENT S INIT 30-74 MIN SBSQ 35240 [facility] 7 SHARRON CARE/DAY 35 PHYSICIAN MINUTES S SBSQ 40325 [facility] 7 SHARRON CARE/DAY 35 PHYSICIAN MINUTES S CRITICAL 53716 [facility] 7 SHARRON ILL/INJUR ED PHYSICIAN PATIENT S INIT 30-74 MIN CRITICAL 87831 [facility] 7 SHARRON ILL/INJUR ED PHYSICIAN PATIENT [place] INIT 30-[place] [address] RADIOLOGY GARFIELD ANGIOGRAP 7 III HY CHEST ASSOCIATE W/CONTRAS S OF [facility] T/NONCONT RAST RADIOLOGI 33826 RADIOLOGY BRANDSER C 7 EXAMINATI ASSOCIATE ON CHEST S OF [facility] SING[place] V[place] FRONTAL ECG [address] [facility] ROUTINE 7 SHARRON ECG W/LEAST PHYSICIAN 12 LDS S EKG I&[place] L[place] [address] [facility] [place] [facility] GROSS EXAMINATI ON ONLY NJX 53757 ANESTHESI WEN DX/THER 7 A GROUP SBST PRACTICE INTRLMNR CRV/THRC W/O IMG GDN RPR RECRT 50763 NIRUJOGI 7 SH[place]ON INCAL/VNT HERNIA PHYSICIAN REDUCIBLE S IMPLANT 10143 NIRUJO MESH OPN 7 SH[place]ON HERNIA RPR/DEBRI PHYSICIAN SUSU S CLOSURE ANES LWR 50026 ANESTHESI CHASE ABD 7 A GROUP VENTRAL & PRACTICE INCISIONA L HERNIA REPAIR MUSC 52225 NIRUJOGI MYOCUTANE 7 SH[place]ON OUS/FASCI OCUTANEOU PHYSICIAN S FLAP S TRUNK ANES 53083 ANESTHESI RANDY LOWER 7 A GROUP INTESTINE PRACTICE ENDOSCOPY DISTAL DUODENUM EGD [address] [facility] TRANSORAL 7 SHARRON BIOPSY SINGLE/MU PHYSICIAN LTIPLE S [place]CO [address] [facility] PY 7 [place] W/BIOPSY SINGLE/[place] [address] [address] [facility] SURG 7 [place] PATHOLOGY MED CTR GROSS&ISAAC ROSCOPIC EXAM C-REACTIV [address] E PROTEIN 6 [facility] [place] [address] RADIOLOGY KLEIMEYER ABDOMEN & 6 KERLINE PELVIS ASSOCIATE W/CONTRAS S OF NOTH T MATERIAL ADMN SET A7003 YOUR YOUR SM VOL 6 PHARMACY PHARMACY [facility] PNEUMAT NEBULIZR DISPBL C-REACTIV 86794 RADHA GARCIA E PROTEIN 6 [facility] INC INC COMPREHEN 08701 RADHA GARCIA SIVE 6 [facility] [place] [address] RADHA GARCIA INFUSION 6 [facility] THERAPY/P INC INC ROPHYLAXI S /DX 1ST TO 1 HR BLOOD 50121 RADHA GARCIA COUNT 6 [facility] COMPLETE INC INC AUTO&AUTO DIFRNTL WBC RADIOLOGI 17092 [facility] ALL C EXAM 6 MEDICAL CHEST 2 IMAGING VIEWS ASS FRONTAL&L ATERAL CULTURE 83920 RADHA GARCIA BACTERIAL 6 [facility] INC INC QUANTTATI VE COLONY COUNT URINE THER 27951 RADHA GARCIA PROPH/DX 6 [facility] NJX IV INC INC PUSH SINGLE/1S T SBST/DRUG COMPREHEN 54064 RADHA GARCIA SIVE 6 [facility] METABOLIC INC INC PANEL BLOOD 81267 RADHA GARCIA COUNT 6 [facility] COMPLETE INC INC AUTO&AUTO DIFRNTL WBC URNLS DIP 94965 RADHA GARCIA 6 [facility] STICK/TAB INC INC LET REAGENT AUTO MICROSCOP Y THERAPEUT 61065 RADHA GARCIA IC 6 [facility] INJECTION INC [place] [address] RADHA GARCIA ABDOMEN & 6 [facility] PELVIS INC INC W/O CONTRAST MATERIAL RADEX 30486 [facility] SPINE 6 MEDICAL SANDRA LUMBOSACR IMAGING AL ASS MINIMUM 4 VIEWS COMPREHEN 69819 RADHA GARCIA SIVE 6 [facility] METABOLIC INC INC PANEL CHEMOTX 93320 RADHA GARCIA ADMN IV 6 [facility] NFS TQ UP INC INC 1 HR 1/ SBST/DRUG C-REACTIV 97403 RADHA GARCIA E PROTEIN 6 [facility] INC INC INJECTION J3380 RADHA GARCIA 6 [facility] VEDOLIZUM INC INC AB 1 MG BLOOD 28454 RADHA GARCIA COUNT 6 [facility] COMPLETE INC INC AUTO&AUTO DIFRNTL WBC AMBULANCE A0429 [facility] SERVICE 6 AMBULANCE AMBULANCE [facility] SERVICE SERVICE EMERGENCY TRANSPORT GROUND A0425 [facility]UL[facility] PER SERVICE SERVICE STATUTE MILE THERAPEUT 54943 RADHA RADHA IC 6 [facility] PROPHYLAC INC INC TIC/DX INJECTION SUBQ/IM THERAPEUT 99510 [facility] SHAUN IC 6 PHYSICIAN STONE PROPHYLAC S GROUP ZUHAIR DUVAL TIC/DX INJECTION SUBQ/IM ADMN SET A7003 YOUR YOUR SM VOL 6 PHARMACY PHARMACY NONFILTR [employer] PNEUMAT NEBULIZR DISPBL THERAPEUT 10161 [facility] IC 6 PHYSICIAN PHYSICIAN PROPHYLAC S GROUP S GROUP TIC/DX INJECTION SUBQ/IM CHEMOTX 75269 RADHA GARCIA ADMN IV 6 [facility] NFS TQ UP INC INC 1 HR 1 SBST/DRUG COMPREHEN 68903 RADHA GARCIA SIVE 6 [facility] METABOLIC INC INC PANEL C-REACTIV 72596 RADHA GARCIA E PROTEIN 6 [facility] INC INC BLOOD 15448 RADHA GARCIA COUNT 6 [facility] COMPLETE INC INC AUTO&AUTO DIFRNTL WBC INJECTION J3380 RADHA GARCIA 6 [facility] VEDOLIZUM INC INC AB 1 MG ADMN SET A7003 YOUR YOUR SM VOL 6 PHARMACY PHARMACY [employer] [facility] PNEUMAT NEBULIZR DISPBL RADEX ABD 68204 [facility] ALL COMPL 6 MEDICAL AQT ABD IMAGING W/S/E/D ASS VIEWS 1 VIEW CH C-REACTIV 75560 RADHA GARCIA E PROTEIN 6 [facility] INC INC COMPREHEN 95001 RADHA GARCIA SIVE 6 [facility] METABOLIC INC INC PANEL CHEMOTX 73407 RADHA GARCIA ADMN IV 6 [facility] NFS TQ UP INC INC 1 HR / SBST/DRUG INJECTION J3380 RADHA GARCIA 6 [facility] VEDOLIZUM INC INC AB 1 MG BLOOD 62115 RADHA GARCIA COUNT 6 [facility] COMPLETE INC INC AUTO&AUTO DIFRNTL WBC BLOOD 78868 RADHA GARCIA COUNT 6 [facility] COMPLETE INC INC AUTO&AUTO DIFRNTL WBC INJECTION J3380 RADHA GARCIA 6 [facility] VEDOLIZUM INC INC AB 1 [place] [address] RADHA GARCIA INFUSION 6 [facility] THERAPY/P INC INC ROPHYLAXI S /DX 1ST TO 1 HR COMPREHEN 10709 RADHA GARCIA SIVE 6 [facility] METABOLIC INC INC PANEL C-REACTIV 97681 RADHA GARCIA E PROTEIN 6 [facility] INC INC C-REACTIV 95145 RADHA GARCIA E PROTEIN 5 [facility] INC INC COMPREHEN 41823 RADHA GARCIA SIVE 5 [facility] METABOLIC INC INC PANEL CHEMOTX 48848 RADHA GARCIA ADMN IV 5 [facility] NFS TQ UP INC INC 1 HR SBST/DRUG INJECTION C9026 RADHA GARCIA 5 [facility] VEDOLIZUM INC INC AB 1 MG BLOOD 73761 RADHA GARCIA COUNT 5 [facility] COMPLETE INC INC AUTO&AUTO DIFRNTL WBC BLOOD 47803 RADHA GARCIA COUNT 5 [facility] COMPLETE INC INC AUTO&AUTO DIFRNTL WBC COLLECTIO 96707 RADHA GARCIA N VENOUS 5 [facility] BLOOD INC INC VENIPUNCT URE TB CELL 06020 RADHA GARCIA MEDIATED 5 [facility] ANTIGN INC INC RESPNSE GAMMA INTERFERO N COMPREHEN 71682 RADHA GARCIA SIVE 5 [facility] METABOLIC INC INC PANEL PROTHROMB 99629 RADHA GARCIA IN TIME 5 [facility] INC INC 25 78064 RADHA GARCIA HYDROXY 5 [facility] INCLUDES INC INC FRACTIONS IF PERFORMED CYANOCOBA 91066 RADHA GARCIA JAKOB 5 [facility] VITAMIN INC INC B-12 C-REACTIV 76277 RADHA GARCIA E PROTEIN 5 [facility] INC INC RADEX 47728 [facility] SPINE 5 MEDICAL SANDRA CERVICAL IMAGING 4 OR 5 ASS VIEWS PRESSURIZ 80677 RADHA GARCIA ED/NONPRE 5 [facility] SSURIZED INC INC INHALATIO N TREATMENT COMPREHEN 60874 RADHA GARCIA SIVE 5 [facility] METABOLIC INC INC PANEL RADIOLOGI 42007 RADHA GARCIA C 5 [facility] EXAMINATI INC INC ON CHEST SINGLE VIEW FRONTAL ECG 90093 TAMIKA LUNDBERG ROUTINE 5 REJI REJI ECG W/LEAST 12 LDS I&R ONLY ECG 25359 RADHA GARCIA ROUTINE 5 [facility] ECG INC INC W/LEAST 12 LDS TRCG ONLY W/O I&R NATRIURET 29337 RADHA GARCIA IC 5 [facility] PEPTIDE INC INC BLOOD 52875 RADHA GARCIA COUNT 5 [facility] COMPLETE INC INC AUTO&[place] [address] RADHA GARCIA TROPONIN 5 [facility] QUANTITAT INC INC ANIYAH ADMN SET A7003 YOUR YOUR SM VOL 5 PHARMACY PHARMACY [facility] PNEUMAT NEBULIZR DISPBL NEBULIZER E0570 WOLF BLOOM WITH 5 HOME HOME COMPRESSO MEDICAL MEDICAL R EQUIPME EQUIPME PRESSURIZ 90684 [facility] YEIMI ED/NONPRE 5 PHYSICIAN ISAAC SSURIZED S GROUP INHALATIO N TREATMENT THERAPEUT 94982 [facility] YEIMI IC 5 PHYSICIAN ISAAC PROPHYLAC S GROUP TIC/DX INJECTION SUBQ/IM INJECTION J1040 [facility] YEIMI 5 PHYSICIAN ISAAC METHYLPRE S GROUP DNISOLONE ACETATE 80 MG RADIOLOGI 72274 [facility] ALL C EXAM 5 MEDICAL CHEST 2 IMAGING VIEWS ASS FRONTAL&L ATERAL EGD 61865 ANALI LOCO TRANSORAL 5 MEDICAL KERLINE BIOPSY SERV SINGLE/MU FOUNDATIO LTIPLE N [place] 45986 ANALI LOCO PY 5 MEDICAL KERLINE W/BIOPSY SERV SINGLE/MU FOUNDATIO LTIPLE N UNCLASSIF J3490 RADHA GARCIA IED DRUGS 5 [facility] [place] [address] [facility], SURG 5 [facility] PATHOLOGY GROSS&ISAAC ROSCOPIC EXAM RADIOLOGI 52858 [facility] C EXAM 5 MEDICAL SANDRA CHEST 2 IMAGING VIEWS ASS FRONTAL&L ATERAL COMPREHEN 74382 RADHA GARCIA SIVE 5 [facility] METABOLIC INC INC PANEL MICROSOMA 78429 RADHA GARCIA L 5 [facility] [place] [address] RADHA GARCIA THYROID 5 [facility] STIMULATI [place] [address] RADHA GARCIA THYROXINE 5 [facility] TOTAL INC INC THERAPEUT 15206 [facility] YEIMI IC 5 PHYSICIAN ISAAC PROPHYLAC S GROUP TIC/DX INJECTION SUBQ/IM 25 93558 RADHA GARCIA HYDROXY 5 [facility] INCLUDES INC INC FRACTIONS IF PERFORMED COLLECTIO 53492 [facility] N VENOUS 5 PHYSICIAN ISAAC B[place] [address] RADHA GARCIA TRIIODOTH 5 [facility] YRONINE INC INC T3 FREE RADIOLOGI 22266 [facility] C EXAM 5 MEDICAL SANDRA CHEST 2 IMAGING VIEWS ASS FRONTAL&L ATERAL COMPREHEN 72455 RADHA GARCIA SIVE 5 [facility] [place] [address] RADHA GARCIA IRON 5 [facility] INC INC C-REACTIV 90764 RADHA RADHA E PROTEIN 5 [facility] INC INC 25 08684 RADHA GARCIA HYDROXY 5 [facility] INCLUDES INC INC FRACTIONS IF PERFORMED CYANOCOBA 41286 RADHA GARCIA JAKOB 5 [facility] VITAMIN INC INC B-12 IRON 36210 RADHAANYI THOMASON BINDING 5 [facility] CAPACITY INC INC BLOOD 92359 RADHA GARCIA COUNT 5 [facility] COMPLETE INC INC AUTO&AUTO DIFRNTL WBC COLLECTIO 75643 RADHA GARCIA N VENOUS 5 [facility] BLOOD INC INC VENIPUNCT URE RADEX 24890 SHARON CASTILLOUTCHER ABDOMEN 1 5 MEDICAL ROM IMAGING ANTEROPOS ASS TERIOR VIEW RADEX 82765 RADHAANYI GARCIA ABDOMEN 5 [facility] COMPL INC INC W/DCBTS&/ ERC VIEWS OPHTH 58992 SCIFRES SCIFRES MEDICAL 5 ANG ANG XM&EVAL COMPRE NEW PT 1/> VST BLOOD 82107 RADHA GARCIA COUNT 5 [facility] COMPLETE INC INC AUTO&[place] [address] RADHA GARCIA FREE 5 [facility] [place] [address] RADHA GARCIA THYROID 5 [facility] STIMULATI INC INC NG HORMONE TSH 25 00192 RADHA GARCIA HYDROXY 5 [facility] INCLUDES INC INC FRACTIONS IF PERFORMED COMPREHEN 61281 RADHA GARCIA SIVE 5 [facility] METABOLIC INC INC PANEL RADIOLOGI 92916 RADHA GARCIA C EXAM 4 [facility] CHEST 2 INC INC VIEWS FRONTAL&L ATERAL IAADI 70392 RADHA GARCIA INFLUENZA 4 [facility] B VIRUS INC INC IAADI 26033 RADHA GARCIA INFFLUENZ 4 [facility] A A VIRUS INC [facility] 91453 [facility] 4 PHYSICIAN ISAAC DAY S GROUP MANAGEMEN T 30 MIN/< SBSQ 84750 [facility] 4 PHYSICIAN ISAAC CARE/DAY S GROUP 15 MINUTES INITIAL 43233 [facility] 4 PHYSICIAN ISAAC CARE/DAY S GROUP 50 MINUTES ECG 24830 TASHIA LAO JR ROUTINE 4 DWI DWI ECG W/LEAST 12 LDS I&R ONLY CT THORAX 67287 SHARON RAE 4 MEDICAL SANDRA W/CONTRAS IMAGING T ASS MATERIAL RADIOLOGI 40822 SHARON Wolfe 4 MEDICAL SANDRA EXAMINATI IMAGING [place] [address] RADHA GARCIA INFUSION 4 [facility] THERAPY/P INC INC ROPHYLAXI S /DX 1ST TO 1 HR THERAPEUT 77000 RADHA GARCIA IC 4 [facility] INJECTION INC INC IV PUSH EACH NEW DRUG BLOOD 36498 RADHA GARCIA COUNT 4 [facility] COMPLETE INC INC AUTO&AUTO DIFRNTL WBC COMPREHEN 37383 RADHA GARCIA SIVE 4 [facility] METABOLIC INC INC PANEL RADEX ABD 63467 [facility] COMPL 4 MEDICAL ROM AQT ABD IMAGING W/S/E/D ASS VIEWS 1 VIEW CH COMPREHEN 21583 [facility] 4 Y Y METABOLIC [facility] PANEL C-REACTIV 34434 [facility] E PROTEIN 4 Y Y [facility] 25 94696 [facility] HYDROXY 4 Y Y NEW [facility] FRACTIONS IF PERFORMED CYANOCOBA 25149 [facility] JAKOB 4 Y Y VITAMIN [facility] B-12 [place] [address] [facility] FERRITIN 4 Y Y [facility] NZYM 80204 [facility] ACTIV BLD 4 Y Y [facility] CELLS/TIS S NONRADACT SUBSTRATE EA BLOOD 96021 [facility] COUNT 4 Y Y COMPLETE [facility] AUTO&AUTO DIFRNTL WBC IRON 88546 [facility] BINDING 4 Y Y CAPACITY [facility] COLLECTIO 94442 [facility] N VENOUS 4 Y Y BLOOD [facility] VENIPUNCT URE TB CELL 06149 [facility] MEDIATED 4 Y Y ANTIGN [facility] RESPNSE GAMMA INTERFERO N RADIOLOGI 91722 [facility] TER[facility] C EXAM 4 MEDICAL ROM CHEST 2 IMAGING VIEWS ASS FRONTAL&[place] [address] RADHAANYI GARCIA TRACT UPR 4 [facility] W/SM INT INC [place] [address] SHARON RAE UPR W/WO 4 MEDICAL SANDRA GLUCOSE IMAGING W/SM ASS INTEST FOLLW-THR U BASIC 85823 RADHAANYI GARCIA METABOLIC 4 [facility] PANEL INC INC CALCIUM TOTAL RADEX 78271 SHARON TERESA ABDOMEN 4 MEDICAL ROM COMPL IMAGING W/DCBTS&/ [place] [address] [facility] ABDOMEN & 4 MEDICAL ROM PELVIS IMAGING W/[place] [address] SHARON TERESA ABDOMEN & 4 MEDICAL ROM PELVIS IMAGING W/O ASS CONTRAST MATERIAL GROUND A0425 [facility]ANCE AMBULANCE PER SERVICE SERVICE STATUTE MILE AMBULANCE A0429 [facility] SERVICE 4 AMBULANCE AMBULANCE BLS SERVICE SERVICE EMERGENCY TRANSPORT RADEX 95907 SHARON RAE SPINE 4 MEDICAL SANDRA LUMBOSACR IMAGING AL ASS MINIMUM 4 VIEWS RADEX ABD 70747 TERES[facility] TERESA COMPL 4 ROM ROM AQT ABD W/S/E/D VIEWS 1 VIEW CH ECG 87595 JYOTI MONTES ROUTINE 3 JR JUAN ANTONIO JR JUAN ANTONIO ECG W/LEAST 12 LDS I&R ONLY RADEX 51953 TERESA TERESA ABDOMEN 1 3 ROM ROM ANTEROPOS TERIOR VIEW ANES 71189 JIAN VILLAR INTRAPERI 3 CELESTINE CELESTINE TONEAL UPPER ABDOMEN W/LAPS NOS REMOVAL 01540 BOTTIGGI BOTTIGGI PERITONEA 3 ANT ANT [place] [address] MORRISON MORRISON SURG 3 JUAN ANTONIO JUAN ANTONIO PATHOLOGY GROSS EXAMINATI ON ONLY SUSCEPTIB 57607 RADHA GARCIA LTY STDY 3 [facility] ANTIMICRB INC INC IAL MICRO/AGA R DILUTJ BLOOD 00290 RADHA GARCIA COUNT 3 [facility] COMPLETE INC INC AUTO&AUTO DIFRNTL WBC CUL BACT 67506 RADHA GARCIA XCPT 3 [facility] URINE INC INC BLOOD/STO OL AEROBIC ISOL CUL BACT 20704 RADHA GARCIA AEROBIC 3 [facility] ADDL INC INC METHS DEFINITIV E EA ISOL BASIC 58302 RADHA GARCIA METABOLIC 3 [facility] [place] [address] RADHA GARCIA LIPASE 3 [place] [address] RADHA GARCIA AMYLASE 3 [facility] INC INC COMPREHEN 47180 RADHA GARCIA SIVE 3 [facility] METABOLIC INC INC PANEL BLOOD 67117 RADHA GARCIA COUNT 3 [facility] COMPLETE INC INC AUTO&AUTO DIFRNTL WBC URNLS DIP 23396 RADHA GARCIA 3 [facility] STICK/TAB INC INC LET REAGENT AUTO MICROSCOP Y RADIOLOGI 48042 TERES[facility] TERESA C EXAM 3 ROM ROM CHEST 2 VIEWS FRONTAL&L ATERAL RADIOLOGI 78018 TERESA TERESA C EXAM 3 ROM ROM CHEST 2 VIEWS FRONTAL&L ATERAL RADIOLOGI 75679 TERESA TERESA C 3 ROM ROM EXAMINATI ON CHEST SINGLE VIEW FRONTAL COLECTOMY 31271 WENDY NGUYEN PRTL 3 BOONE BOONE W/RMVL TERMINAL ILEUM & [place] [address] LEON ISAAC LEON ISAAC SURG 3 PATHOLOGY GROSS&ISAAC ROSCOPIC EXAM ANES 74500 [facility] INTRAPERI 3 ANESTH TONEAL OF THE UPPER BLUE ABDOMEN W/LAPS NOS OPEN AND 4572 RADHA GARCIA OTHER 3 [facility] CECECTOMY INC INC BLOOD 90585 RADHA GARCIA COUNT 3 [facility] COMPLETE INC INC AUTO&AUTO DIFRNTL WBC COMPREHEN 14587 RADHA GARCIA SIVE 3 [facility] METABOLIC INC INC PANEL RADEX ABD 37368 RADHA GARCIA COMPL 3 [facility] AQT ABD INC INC W/S/E/D VIEWS 1 VIEW CH IAADI 26958 RADHA THOMASON INFFLUENZ 3 [facility] A A VIRUS INC INC IAADI 64404 RADHA GARCIA INFLUENZA 3 [facility] [place] [address] RADHA RADHA LIPASE 3 [facility] INC INC THER 97288 RADHA GARCIA PROPH/DX 3 [facility] NJX IV INC INC PUSH SINGLE/1S T SBST/DRUG COMPREHEN 59744 RADHA GARCIA SIVE 3 [facility] METABOLIC INC INC PANEL BLOOD 28768 RADHA GARCIA COUNT 3 [facility] COMPLETE INC INC AUTO&AUTO DIFRNTL WBC URNLS DIP 79295 RADHA GARCIA 3 [facility] STICK/TAB INC INC LET REAGENT AUTO MICROSCOP Y THERAPEUT 91542 RADHA GARCIA IC 3 [facility] INJECTION INC INC IV PUSH EACH NEW DRUG THERAPEUT 83538 RADHA [facility] IC 2 [facility] INJECTION [place] [address] RADHA GARCIA INFUSION 2 [facility] THERAPY/P INC INC ROPHYLAXI S /DX 1ST TO 1 HR LOCM Q9967 [facility] RADHA 300-399 2 [facility] MG/ML INC INC IODINE CONCENTRA TION PER ML URNLS DIP 76307 [facility] RADHA [facility] STICK/TAB INC INC LET REAGENT AUTO MICROSCOP Y BLOOD 40364 [facility] COUNT [facility] COMPLETE INC INC AUTO&[place] [address] RADHA GARCIA ABDOMEN & 2 [facility] PELVIS INC INC W/[place] [address] RAD[facility] G[facility] LIPASE [facility] INC INC THER 49090 RADHA GARCIA PROPH/DX 2 [facility] NJX EA INC INC SEQL IV PUSH SBST/DRUG FAC RADEX 31501 RADHA GARCIA ABDOMEN 1 2 [facility] INC INC ANTEROPOS TERIOR VIEW 3D 84879 RAD[facility] GARCIA RENDERING 2 [facility] INC INC W/INTERP& POSTPROC DIFF WORK STATION COMPREHEN 78259 [facility]IA SIVE 2 [facility] [place] [address] RADHA GARCIA AMYLASE 2 [facility] INC SKIN TEST 23621 [facility] TUBERCULO INC INC SIS INTRADERM AL RADIOLOGI 98398 IOWA TERESA C EXAM 2 MEDICAL ROM CHEST 2 IMAGING VIEWS ASS FRONTAL&L ATERAL CULTURE 56014 RADHA GARCIA BACTERIAL 2 [facility] INC INC [place] [address] RADHA GRACIA AMYLASE 2 [facility] INC INC COMPREHEN 17987 RAD[facility]ARCIA SIVE 2 [facility] [place] [address] RADHA GARCIA LIPASE 2 [facility] INC INC BLOOD 94820 RAD[facility] GARCIA COUNT 2 [facility] COMPLETE INC INC AUTO&AUTO DIFRNTL WBC URNLS DIP 78750 [facility] STICK/TAB INC [place] [address] RADHA GARCIA INFUSION 2 [facility] THERAPY/P INC INC ROPHYLAXI S /DX 1ST TO 1 [place] [address] RADHA GARCIA INFUSION 2 [facility] THERAPY INC INC PROPHYLAX IS/DX EA HOUR EGD 12824 RADHA GARCIA TRANSORAL 2 [facility] BIOPSY INC INC SINGLE/MU LTIPLE CUL 27395 RADHA GARCIA PRSMPTV 2 [facility] PTHGNC INC INC ORGANISMS SCR DNS CHART CRITICAL 62659 [facility] 2 ISAAC ISAAC ILL/INJUR ED PATIENT INIT 30-74 MIN ECG 70857 TAMIKA LUNDBERG ROUTINE 2 REJI REJI ECG W/LEAST 12 LDS I&R ONLY URNLS DIP 33453 [facility] GARCIA [facility] STICK/TAB INC INC LET REAGENT AUTO MICROSCOP Y URINE 97509 RADHA RADHA [facility] TEST INC INC VISUAL COLOR CMPRSN METHS RADEX 04589 RADHA RADHA SMALL 2 [facility] INTESTINE INC INC W/[place] [address] [facility] UPR W/WO 2 MEDICAL ROM GLUCOSE IMAGING W/SM ASS INTEST FOLLW-THR U BLOOD 02423 RAD[facility] GARCIA COUNT 2 [facility] COMPLETE INC INC AUTO&AUTO DIFRNTL WBC C-REACTIV 01428 RADHAANYI GARCIA E PROTEIN 2 [facility] INC INC DETERMINA 80166 JOSE GARCIA RA TION 2 REFRACTIV E STATE OPHTH 58951 JOSE GARCIA RA MEDICAL 2 XM&EVAL COMPRE NEW PT 1/> [place] [address] RADHA GARCIA INFUSION 2 [facility] THERAPY/P INC INC ROPHYLAXI S /DX 1ST TO 1 HR THERAPEUT 93902 RADHA GARCIA IC 2 [facility] INJECTION INC INC IV PUSH EACH NEW DRUG URNLS DIP 80297 [facility] 2 [facility] STICK/TAB INC INC LET REAGENT AUTO MICROSCOP Y BLOOD 89177 RADHA GARCIA COUNT 2 [facility] COMPLETE INC INC AUTO&[place] [address] RADHA GARCIA AMYLASE 2 [facility] INC INC COMPREHEN 14443 RADHA GARCIA SIVE 2 [facility] [place] [address] RADHA GARCIA LIPASE 2 [place] [address] RADHA GARCIA LIPASE 2 [facility] INC INC THER 84740 RADHA GARCIA PROPH/DX 2 [facility] NJX IV INC INC PUSH SINGLE/1S T SBST/DRUG COMPREHEN 40012 RADHA GARCIA SIVE 2 [facility] METABOLIC INC INC PANEL BLOOD 30325 RADHA GARCIA COUNT 2 [facility] COMPLETE INC INC AUTO&AUTO DIFRNTL WBC BLOOD 99463 RADHA GARCIA COUNT 2 [facility] COMPLETE INC INC AUTO&AUTO DIFRNTL WBC URNLS DIP 71122 RADHA RADHA 2 [facility] STICK/TAB INC INC LET REAGENT AUTO MICROSCOP Y COMPREHEN 35959 RADHA GARCIA SIVE 2 [facility] [place] [address] RADHA GARCIA AMYLASE 2 [place] [address] RADHA GARCIA LIPASE 2 [facility] INC INC THERAPEUT 08666 RADHA GARCIA IC 2 [facility] PROPHYLAC INC INC TIC/DX INJECTION SUBQ/IM THERAPEUT 79629 RADHA GARCIA IC 2 [facility] PROPHYLAC INC INC TIC/DX INJECTION SUBQ/IM THERAPEUT 60391 RADHA GARCIA IC 2 [facility] PROPHYLAC INC INC TIC/DX INJECTION SUBQ/IM RADEX 01429 RADHA GARCIA SPINE 2 [facility] LUMBOSACR INC INC AL MINIMUM 4 VIEWS AMB A0427 [facility] SERVICE 2 AMBULANCE AMBULANCE ALS SERVICE SERVICE EMERGENCY TRANSPORT LEVEL 1 GROUND A0425 [facility] PER SERVICE SERVICE STATUTE MILE RADEX 01764 RADHA GARCIA RIBS UNI 2 [facility] W/POSTERO INC INC ANT CH MINIMUM 3 VIEWS RADEX HIP 47656 RADHA GARCIA 2 [facility] UNILATERA INC INC L COMPLETE MINIMUM 2 [place] [address] RADHA GARCIA INFUSION 1 [facility] THERAPY INC INC PROPHYLAX IS/DX EA HOUR BASIC 64428 RADHA GARCIA METABOLIC 1 [facility] [place] [address] RADHA GARCIA LIPASE 1 [place] [address] RADHA GARCIA ABDOMEN & 1 [facility] PELVIS INC INC W/O CONTRAST MATERIAL 3D 34251 RADHA GARCIA RENDERING 1 [facility] INC INC W/INTERP& [place] [address] RADHA GARCIA INFUSION 1 [facility] THERAPY/P INC INC ROPHYLAXI S /DX 1ST TO 1 HR INJECTION J2405 [facility] GARCIA 1 [facility] ONDANSETR INC INC ON HCL PER 1 MG HEPATIC 38802 RADHA RADHA FUNCTION 1 [facility] PANEL INC INC URNLS DIP 31415 RAD[facility] GARCIA 1 [facility] STICK/TAB INC INC LET REAGENT AUTO MICROSCOP Y BLOOD 71149 RADHAANYI GARCIA COUNT 1 [facility] COMPLETE INC INC AUTO&[place] [address] RADHA GARCIA INFUSION 1 [facility] THERAPY/P INC INC ROPHYLAXI S /DX 1ST TO 1 HR INJECTION J1745 RADHA RADHA 1 [facility] INFLIXIMA INC INC B EXCLUDES BIOSIMILA R 10 [place] [address] RADHA GARCIA INFUSION 1 [facility] THERAPY INC INC PROPHYLAX IS/DX EA HOUR [place] SOFT 73315 RADHA GARCIA TISSUE 1 [facility] NECK INC INC W/CONTRAS T MATERIAL URINE 54303 RADHA GARCIA 1 [facility] TEST INC INC VISUAL COLOR CMPRSN METHS 3D 46155 RADHA GARCIA RENDERING 1 [facility] INC INC W/INTERP& POSTPROC DIFF WORK STATION RADIOLOGI 55476 RADHA GARCIA C EXAM 1 [facility] CHEST 2 INC INC VIEWS FRONTAL&L ATERAL IAADI 93947 RADHA GARCIA INFLUENZA 1 [facility] B VIRUS INC INC IAADI 45490 RADHA GARCIA INFFLUENZ 1 [facility] A A VIRUS INC INC COMPREHEN 12704 RADHA GARCIA SIVE 1 [facility] METABOLIC INC INC PANEL INJECTION J2405 RADHAANYI GARCIA 1 [facility] ONDANSETR INC INC ON HCL [place] 1 [place] [address] RADHA GARCIA STREPTOCO 1 [facility] CCUS INC INC GROUP A URNLS DIP 18664 RADHA RADHA 1 [facility] STICK/TAB INC INC LET REAGENT AUTO MICROSCOP Y AMBULANCE A0429 [facility] SERVICE 1 AMBULANCE AMBULANCE BLS SERVICE SERVICE EMERGENCY TRANSPORT GROUND A0425 [facility] MILEAGE 1 AMBULANCE AMBULANCE PER SERVICE SERVICE STATUTE [facility] BLOOD 26102 RADHA GARCIA COUNT 1 [facility] COMPLETE INC INC AUTO&[place] [address] RADHA GARCIA STREPTOCO 1 [facility] CCUS INC INC GROUP A IAADI 80177 RADHA GARCIA INFLUENZA 1 [facility] B VIRUS INC INC IAADI 24093 RADHA GARCIA INFFLUENZ 1 [facility] [place] [address] RADHA GARCIA INFUSION 1 [facility] THERAPY/P INC INC ROPHYLAXI S /DX 1ST TO 1 [place] [address] RADHA GARCIA INFUSION 1 [facility] THERAPY INC INC PROPHYLAX IS/DX EA HOUR RADIOLOGI 88196 RADHA GARCIA C EXAM 1 [facility] CHEST 2 INC INC VIEWS FRONTAL&L ATERAL SKIN TEST 49797 RADHA GARCIA 1 [facility] TUBERCULO INC INC SIS INTRADERM AL RADIOLOGI 05742 [facility] TERESA C EXAM 1 MEDICAL ROM CHEST 2 IMAGING VIEWS ASS FRONTAL&[place] [address] RADHA GARCIA INFUSION 1 [facility] THERAPY/P INC INC ROPHYLAXI S /DX 1ST TO 1 HR 3D 11335 [place] RENDERING 1 MEDICAL ROM IMAGING W/INTERP& [place] [address] [place] ABDOMEN & 1 MEDICAL ROM PELVIS IMAGING [place] [address] RADHA GARCIA INFUSION 1 [facility] THERAPY INC INC [place] [address] RADHA GARCIA LIPASE 1 [facility] INC INC COMPREHEN 36529 RADHA GARCIA SIVE 1 [facility] METABOLIC INC INC PANEL URNLS DIP 54853 RADHA RADHA 1 [facility] STICK/TAB INC INC LET REAGENT AUTO MICROSCOP Y BLOOD 66366 RADHA GARCIA COUNT 1 [facility] COMPLETE INC INC AUTO&AUTO DIFRNTL WBC BLOOD 48909 RADHA GARCIA COUNT 1 [facility] COMPLETE INC INC AUTO&AUTO DIFRNTL WBC URNLS DIP 61446 RADHA GARCIA 1 [facility] STICK/TAB INC INC LET REAGENT AUTO MICROSCOP Y BASIC 95922 RADHA GARCIA METABOLIC 1 [facility] [place] [address] RADHA GARCIA LIPASE 1 [place] [address] RADHA GARCIA INFUSION 1 [facility] THERAPY INC INC PROPHYLAX IS/DX EA HOUR COMPREHEN 86735 RADHA GARCIA SIVE 1 [facility] [place] [address] RADHA GARCIA AMYLASE 1 [place] [address] RADHA GARCIA INFUSION 1 [facility] THERAPY/P INC INC ROPHYLAXI S /DX 1ST TO 1 HR URNLS DIP 09381 RADHA GARCIA 1 [facility] STICK/TAB INC INC LET REAGENT AUTO MICROSCOP Y BLOOD 41987 RADHA GARCIA COUNT 1 [facility] COMPLETE INC INC AUTO&AUTO DIFRNTL WBC SKIN TEST 19027 RADHA GARCIA 1 [facility] SIS INTRADERM AL RADIOLOGI 30108 [place] TERESA C EXAM 1 MEDICAL ROM CHEST 2 IMAGING VIEWS ASS FRONTAL&L ATERAL URNLS DIP 29840 RADHA GARCIA 1 [facility] STICK/TAB INC INC LET REAGENT AUTO MICROSCOP Y OVA&JACQUELINE 94163 RADHA GARCIA ITES 0 [facility] DIRECT INC INC SMEARS CONCENTRA TION & [place] [address] RADHA GARCIA CLOSTRIDI 0 [facility] [place] [address] RADHA GARCIA GIARDIA 0 [facility] INC INC CUL BACT 45664 RADHA GARCIA STOOL 0 [facility] AEROBIC INC INC ISOL SALMONELL A&SHIGELL C-REACTIV 87555 RADHA GARCIA E PROTEIN 0 [facility] [place] [address] RADHA GARCIA INFUSION 0 [facility] THERAPY/P INC INC ROPHYLAXI S /DX 1ST TO 1 [place] [address] RADHA GARCIA INFUSION 0 [facility] THER INC INC PROPH ADDL SEQUENTIA L TO 1 HR URNLS DIP 23484 RADHA GARCIA 0 [facility] STICK/TAB INC INC LET REAGENT AUTO MICROSCOP Y URNLS DIP 59125 RADHA GARCIA 0 [facility] STICK/TAB INC INC [place] [address] RADHAANYI THOMASON STREPTOCO 0 [facility] CCUS INC INC GROUP A BLOOD 63975 RADHA THOMASON COUNT 0 [facility] COMPLETE INC INC AUTO&[place] [address] RADHA GARCIA LIPASE 0 [place] [address] RADHA THOMASON AMYLASE 0 [facility] INC INC COMPREHEN 07384 RADHA GARCIA SIVE 0 [facility] METABOLIC INC [place]E 25[address] RADHA GARCIA MINIMUM 0 [facility] 2 VIEWS INC INC GROUND A0425 [facility] MILEAGE 0 AMBULANCE AMBULANCE PER SERVICE SERVICE STATUTE MILE AMBULANCE A0429 [facility] SERVICE 0 AMBULANCE AMBULANCE BLS SERVICE SERVICE EMERGENCY TRANSPORT APPL 69225 RADHA GARCIA MODALITY 9 [facility] 1/> AREAS INC INC ELEC STIMJ UNATTENDE D APPLICATI 53389 RADHA GARCIA ON 9 [facility] MODALITY INC INC 1/> AREAS HOT/COLD PACKS APPL 30934 RADHA GARCIA MODALITY 9 [facility] 1/> AREAS INC INC ULTRASOUN D EA 15 MIN PHYSICAL 85011 RADHA GARCIA THERAPY 9 [facility] EVALUATIO INC INC N THERAPEUT 41055 RADHA GARCIA IC PX 1/> 9 [facility] AREAS INC INC EACH 15 MIN EXERCISES PSYCHOLOG 75705 PHYSICIAN TREVOR BLOUNT 9 S KP W TESTING SERVICES ADMN BY [facility] TECH NC HR NDL EMG 1 36262 SIENNA EL, XTR W/WO 9 KP [place] RELATED PARASPINA L AREAS NRV CNDJ 29500 SIENNA EL, AMPLT&LAT 9 KP [facility] ENCY EA NRV MOTOR W/F-WAVE STD NRV CNDJ 96063 SIENNA EL, AMPLITUDE 9 KP GOODRICH & LATENCY EACH NERVE SENSORY MRI 06949 CASEY C TERESA, SPINAL 9 TERESA CASEY CANAL LUMBAR W/O CONTRAST MATERIAL 3D 91195 CASEY C TERES[place], RENDERING 9 TERESA CASEY W/INTERP & POSTPROCE SS SUPERVISI ON ECHO 94966 [facility] 9 PHYSICIAN VALERIE Owen GROUP W/WOM-MOD E COMPL SPEC&COLR D BLOOD 27542 RADHA GARCIA COUNT 9 [facility] COMPLETE INC INC AUTO&AUTO DIFRNTL WBC RHEUMATOI 71067 RADHA Buenrostro FACTOR 9 [facility] QUANTITAT INC INC ANIYAH HEMOGLOBI 73634 RADHA GARCIA N 9 [facility] GLYCOSYLA INC INC ANGELA A1C CYANOCOBA 36966 RADHA GARCIA JAKOB 9 [facility] VITAMIN INC INC B-12 [place] [address] RADHA GARCIA THYROXINE 9 [facility] TOTAL INC INC PROTEIN 29204 RADHA GARCIA ELECTROPH 9 [facility] ORETIC INC INC FRACTJ&[place] [address] RADHA GARCIA FOLIC 9 [facility] [address] RADHA GARCIA THYROID 9 [facility] STIMULATI INC INC NG HORMONE TSH SYPHILIS 37836 RADHA GARCIA TEST 9 [facility] NON-TREPO INC INC NEMAL ANTIBODY QUAL COMPREHEN 52457 RADHA GARCIA SIVE 9 [facility] METABOLIC INC INC PANEL RADIOLOGI 18011 Aiden LUZ EXAM 9 MEDICAL CASEY CHEST 2 IMAGING VIEWS ASSOCIATE FRONTAL&L S ATERAL COMPREHEN 37499 RADHA GARCIA SIVE 9 [facility] METABOLIC INC INC PANEL C-REACTIV 71456 RADHA GARCIA E PROTEIN 9 [facility] HIGH INC INC SENSITIVI TY THERAPEUT 62838 RADHA GARCIA IC 9 [facility] PROPHYLAC INC INC TIC/DX INJECTION SUBQ/IM BLOOD 27669 RADHAANYI GARCIA COUNT 9 [facility] COMPLETE INC INC AUTO&[place] [address] [facility]TR[facility]m [place]OHLER ABDOMEN 9 RADIOLOGY J W/O CONTRAST MATERIAL CT PELVIS 01329 CNTRL ANALI KOHLER W/O 9 RADIOLOGY J CONTRAST MATERIAL URINE 97554 RADHA RADHA 9 [facility] TEST INC INC VISUAL COLOR CMPRSN METHS COMPREHEN 76104 RADHA GARCIA SIVE 9 [facility] [place] [address] RADHA RADHA AMYLASE 9 [facility] INC INC RADEX 61973 RADHA GARCIA ABDOMEN 9 [facility] COMPL INC INC W/DCBTS&/ ERC VIEWS URNLS DIP 62835 RADHA GARCIA 9 [facility] STICK/TAB INC INC LET REAGENT AUTO MICROSCOP Y BLOOD 09739 RADHA RADHA COUNT 9 [facility] COMPLETE INC INC AUTO&AUTO DIFRNTL WBC BLOOD 73724 RADHA GARCIA COUNT 9 [facility] COMPLETE INC INC AUTO&AUTO DIFRNTL WBC CYANOCOBA 70497 RADHA GARCIA JAKOB 9 [facility] VITAMIN INC INC B-12 RADEX 12732 RADHA RADHA SPINE 9 [facility] SCOLIOS INC INC STUDY W/SUPINE & ERECT STUDY OBSERVATI 21949 SCHULSTAD SCHULSTAD ON CARE 9 , CALEB , CALEB DISCHARGE MANAGEMEN T [place] ABD 46385 CN[facility] [place], COMPL 9 RADIOLOGY J AQT ABD W/S/E/D VIEWS 1 VIEW CH INITIAL 04167 WENDY NGUYEN OBSERVATI 9 , CALEB ELLIS ON CARE/[address] [place] [address] CNTRL ANALI [place], ABDOMEN 9 RADIOLOGY JUDAH L W/O CONTRAST MATERIAL CT PELVIS 89382 CN[facility] [place] CAT, W/O 9 [place] [address] RADHA GARCIA INFUSION 9 [facility] THERAPY/P INC INC ROPHYLAXI S /DX 1ST TO 1 HR RADEX 69119 [facility] HARLEEN, ABDOMEN 9 MEDICAL [place] P COMPL IMAGING W/DCBTS&/ ASSOCIATE ERC VIEWS S COMPREHEN 98638 RADHA GARCIA SIVE 9 [facility] METABOLIC INC INC PANEL URNLS DIP 89645 RADHA GARCIA 9 [facility] STICK/TAB INC INC LET REAGENT AUTO MICROSCOP Y BLOOD 68485 RADHA GARCIA COUNT 9 [facility] COMPLETE INC INC AUTO&AUTO DIFRNTL WBC 3D 10647 RADHA GARCIA RENDERING 9 [facility] W/INTERP INC INC & [place] [address] [facility] HAR[facility], HEAD/BRAI 9 MEDICAL [place] P N W/O IMAGING CONTRAST ASSOCIATE MATERIAL S CT PELVIS 64579 CNTRL ANALI KOHLER, 9 RADIOLOGY J W/[place] [address] CNTRL ANALI JOSE F, ABDOMEN 9 RADIOLOGY J W/[place] [address] [facility] [place] CESAR, ABDOMEN 9 RADIOLOGY LUIS G W/CONTRAS T MATERIAL CT PELVIS 34969 [facility] [place] CESAR, 9 RADIOLOGY LUIS G W/CONTRAS T MATERIAL RADEX 56161 [facility] TERESA, SPINE 8 MEDICAL CASEY LUMBOSACR IMAGING AL ASSOCIATE MINIMUM 4 [place] [address] RADHA GARCIA TRACT UPR 8 [facility] W/SM INT INC INC W/[place] [address] [facility] TER[facility], UPR W/WO 8 MEDICAL CASEY GLUCOSE IMAGING W/SM ASSOCIATE INTEST S FOLLW-TH[place] U [place] NFS 46252 RADHA GARCIA THER 8 [facility] PROPH/DX INC INC 1ST >1 HR AMBULANCE A0429 [facility] SERVICE 8 AMBULANCE AMBULANCE BLS SERVICE SERVICE EMERGENCY TRANSPORT GROUND A0425 [facility] PER SERVICE SERVICE STATUTE MILE URNLS DIP 42571 RADHA GARCIA 8 [facility] STICK/TAB INC INC LET REAGENT AUTO MICROSCOP Y BLOOD 56243 RADHA GARCIA COUNT 8 [facility] COMPLETE INC INC AUTO&[place] [address] RADHA GARCIA LIPASE 8 [facility] INC INC COMPREHEN 02795 RADHA GARCIA SIVE 8 [facility] [place] [address] RADHA GARCIA AMYLASE 8 [place] [address] [place] IVORY, ABDOMEN 8 MEDICAL PAULINA W/CONTRAS SERV T FOUNDATIO MATERIAL [place] PELVIS 35194 [place] DODSON, 8 MEDICAL [place]UL[place] W/CONTRAS SERV T FOUNDATIO MATERIAL INJECTION J2270 [facility] MORPHINE 8 Y Y SULFATE [facility] HOSPITAL UP TO 10 MG BLOOD 88226 [facility] 8 Y Y COMPLETE [facility] AUTOMATED GONADOTRO 65169 [facility] PIN 8 Y Y CHORIONIC [facility] QUALITATI VE URNLS DIP 99299 [facility] UNIVERS[facility] 8 Y Y STICK/TAB HOSPITAL HOSPITAL LET REAGENT AUTO MICROSCOP Y INJECTION J3010 [facility] FENTANYL 8 Y Y [facility] 0.1 MG RINGERS J7120 [facility] LACTATE 8 Y Y INFUSION [facility] HOSPITAL UP TO 1000 CC THER 05192 [facility] PROPH/DX 8 Y Y NJX IV [facility] PUSH 1ST SBST/[place] [address] [facility] INFUSION 8 Y Y HYDRATION [facility] INITIAL 31 MIN-1 HR THER 82043 UNIVERSIT UNIVERSIT PROPH/DX 8 Y Y NJX [facility] SEQL IV PUSH SBST/DRUG SUBCUTANE 46230 [facility] OUS 8 Y Y INFUSION [facility] EACH ADDITIONA L IV PUSH INJECTION J2405 [facility] 8 [facility] PER 1 MG COLLECTIO 11377 [facility] N VENOUS 8 Y Y BLOOD [facility] VENIPUNCT URE COMPREHEN 08565 [facility] 8 Y Y METABOLIC [facility] PANEL RADEX ABD 45000 [facility] COMPL 8 Y Y AQT [facility] W/S/E/D VIEWS 1 VIEW CH RADEX ABD 39128 SHARON [place], COMPL 8 MEDICAL CASEY AQT ABD IMAGING W/S/E/D ASSOCIATE VIEWS 1 [place] [address] RADHA THOMASON AMYLASE 8 [facility] INC INC COMPREHEN 09989 RADHA GARCIA SIVE 8 [facility] [place] [address] RADHA GARCIA LIPASE 8 [place] [address] RADHA GARCIA THER 8 [facility] PROPH/DX INC INC 1ST >1 HR BLOOD 45965 RADHA RADHA COUNT 8 [facility] COMPLETE INC INC AUTO&AUTO DIFRNTL WBC BLOOD 12322 RADHA RADHA COUNT 8 [facility] COMPLETE INC INC AUTO&AUTO DIFRNTL WBC URNLS DIP 73403 RADHA RADHA 8 [facility] STICK/TAB INC INC [place] [address] RADHA THOMASON LIPASE 8 [facility] INC INC BILIRUBIN 45385 RADHA GARCIA DIRECT 8 [facility] INC INC COMPREHEN 91661 RADHA GARCIA SIVE 8 [facility] [place] [address] RADHA THOMASON AMYLASE 8 [facility] [place] [address] [facility] [place], COMPL 8 MEDICAL CASEY AQT ABD IMAGING W/S/E/D ASSOCIATE VIEWS 1 S VIEW CH 3D 53624 RADHA GARCIA RENDERING 8 [facility] INC INC W/INTERP& [place] [address] RADHA GARCIA ABDOMEN 8 [facility] W/CONTRAS INC INC T [place] PELVIS 96052 SHARON CANSECO, 8 MEDICAL [place] P W/CONTRAS IMAGING T ASSOCIATE MATERIAL S C-REACTIV 69742 RADHA THOMASANYI Pearson PROTEIN 8 [facility] HIGH INC INC SENSITIVI TY BLOOD 36858 RADHAANYI GARCIA COUNT 8 [facility] COMPLETE INC INC AUTO&AUTO DIFRNTL WBC BLOOD 52094 RADHA GARCIA COUNT 8 [facility] COMPLETE INC INC AUTO&AUTO DIFRNTL WBC BASIC 23166 RADHA GARCIA METABOLIC 8 [facility] PANEL INC INC CALCIUM TOTAL CYANOCOBA 78777 RADHA GARCIA JAKOB 8 [facility] VITAMIN INC INC B-12 IAADI 53516 RADHA GARCIA INFFLUENZ 8 [facility] A A VIRUS INC INC RADIOLOGI 41878 RADHA GARCIA C EXAM 8 [facility] CHEST 2 INC INC VIEWS FRONTAL&L ATERAL IAADI 86728 RADHA GARCIA INFLUENZA 8 [facility] [place] [address] RADHA GARCIA AMYLASE 8 [facility] INC INC CULTURE 75426 RADHA GARCIA BACTERIAL 8 [facility] INC INC QUANTTATI VE COLONY COUNT URINE RADEX ABD 67547 RADHA GARCIA COMPL 8 [facility] AQT ABD INC INC W/S/E/D VIEWS 1 [place] [address] RADHA GARCIA LIPASE 8 [facility] INC INC COMPREHEN 30407 RADHA GARCIA SIVE 8 [facility] METABOLIC INC INC PANEL BLOOD 00627 RADHA GARCIA COUNT 8 [facility] COMPLETE INC INC AUTO&AUTO DIFRNTL WBC URNLS DIP 16984 RADHA GARCIA 8 [facility] STICK/TAB INC INC [place] [address] RADHA GARCIA THER 8 [facility] PROPH/DX INC INC 1ST >1 HR RADEX 97215 [place], SPINE 8 MEDICAL CASEY CERVICAL IMAGING 6 OR MORE ASSOCIATE VIEWS S RADEX 61700 [place], SPINE 8 MEDICAL CASEY THORACIC IMAGING 3 VIEWS ASSOCIATE S RADIOLOGI 28504 RADHA GARCIA C EXAM 8 [facility] CHEST 2 INC INC VIEWS FRONTAL&[place] [address] RADHAANYI GARCIA AMYLASE 8 [facility] INC INC 3D 67183 RADHA GARCIA RENDERING 8 [facility] INC INC W/INTERP& POSTPROC DIFF WORK STATION CT PELVIS 08693 RADHA GARCIA W/O 8 [facility] CONTRAST INC INC MATERIAL COMPREHEN 52722 RADHA GARCIA SIVE 8 [facility] [place] [address] RADHA GARCIA LIPASE 8 [facility] INC INC RADEX 19876 [place] TERES[place], SMALL 8 MEDICAL CASEY INTESTINE IMAGING ASSOCIATE W/[place] [address] RADHA GARCIA ABDOMEN 8 [facility] W/O INC INC CONTRAST MATERIAL URNLS DIP 78353 RADHA RADHA 8 [facility] STICK/TAB INC INC LET REAGENT AUTO MICROSCOP Y BLOOD 09049 RADHA GARCIA COUNT 8 [facility] COMPLETE INC INC AUTO&[place] [address] PATHOLOGY PATHOLOGY SURG 8 & & PATHOLOGY CYTOLOGY CYTOLOGY LAB LAB GROSS&ISAAC ROSCOPIC EXAM IV NFS 65444 RADHA GARCIA THER 8 [facility] PROPH/DX INC INC 1ST >1 HR CLOSED 4525 RADHA GARCIA [ENDOSCOP 8 [facility] IC] INC INC BIOPSY OF LARGE INTESTINE COLONOSCO 58631 [facility] PY 8 [facility] W/BIOPSY INC INC SINGLE/MU LTIPLE ANES 11909 [facility] ELVIA [facility] 8 ANESTH [place] INTESTINE OF THE [facility] ENDOSCOPY DISTAL DUODENUM Encounters Encounter Start End Date Code Location Performer Type Date OFFICE 72223 [facility] 7 7 [facility] T VISIT 25 PHYSICIAN MINUTES S OFFICE [address]180 [facility] 7 7 [facility] T VISIT 25 PHYSICIAN MINUTES S EMERGENCY 83060 [facility] 7 7 EMERGENCY VISIT HIGH PHYSICIAN SEVERITY& S THREAT [facility] EM[facility]ENC[facility] 91798 [facility] 7 7 EMERGENCY DEPARTMEN T VISIT PHYSICIAN HIGH/URGE S NT SEVERITY EMERGENCY 56051 [facility] F[facility]IER DEPT 7 7 EMERGENCY VISIT HIGH PHYSICIAN SEVERITY& S THREAT [facility] EMERGENCY 25118 [facility] DEPT 7 7 EMERGENCY VISIT HIGH PHYSICIAN SEVERITY& S THREAT [facility] 7 7 [facility] OUTPATIEN [facility] OFFICE 16198 [facility] 7 7 [facility] T [facility]ISIT 25 PHYSICIAN MINUTES [facility] 7 7 [facility] OUTPATIEN [facility] 7 7 [facility] 94139 [facility] QUINTEROTO 6 6 EMERGENCY N DEPARTMEN T VISIT PHYSICIAN HIGH/URGE S NT SEVERITY OFFICE 68107 [facility] 6 [facility] GELACIO T VISIT 25 PHYSICIAN MINUTES S PERIODIC 87888 [facility] PREVENTIV 6 6 [facility] E MED EST PATIENT PHYSICIAN 40-64YRS [facility] - OTHER 6 6 [facility] MED [facility] LIN[facility] OFFICE 94300 [facility] ZA CONSULTAT 6 6 [facility] ION NEW/ESTAB PHYSICIAN PATIENT S 60 MIN OFFICE 22225 [facility] CONS[facility] 6 6 [facility] GELACIO ION NEW/ESTAB PHYSICIAN PATIENT S 60 MIN EMERGENCY 66749 [facility] FAN-M DEPT 6 6 EMERGENCY [place] VISIT REJI HIGH PHYSICIAN SEVERITY& S THREAT [facility] RADHA - 6 6 [facility] OUTPATIEN INC T EMERGENCY 53415 [facility] 6 6 [facility] T VISIT LOW/MODER SEVERITY HOSPITAL [facility] - 6 6 [facility] OUTPATIEN INC T EMERGENCY 05806 [facility] SWEENEY 6 6 [facility]YSICIAN [facility] T VISIT HIGH/URGE NT SEVERITY OFFICE 53020 [facility] DIEGO ALVARADO 6 6 PHYSICIAN T NEW 20 GROUP MINUTES EMERGENCY 75464 [facility] HERNANDEZ 6 6 PHYSICIAN DEPARTMEN S, [facility] T VISIT HIGH/URGE NT SEVERITY HOSPITAL [facility] - 6 6 [facility] OUTPATIEN [facility] T HOSPITAL RAD[facility] 6 6 [facility] OUTPATIEN [facility] T OFFICE 48325 [facility] SHAUN CORBINPATIBROOKE 6 6 PHYSICIAN STONE T VISIT S GROUP PA-C MUKUND 25 MINUTES HOSPITAL [facility] - 6 6 [facility] [address] [facility] VISIT LIMITED/M INOR PROB HOSPITAL RAD[facility] 6 6 [facility] OUTPATIEN [facility] T EMERGENCY 97289 [facility] STEWART 6 6 [facility] T VISIT MODERATE SEVERITY HOSPITAL RAD[facility] - 6 6 [facility] OUTPATIEN [facility] T EMERGENCY [address] [facility] [address] [facility] T VISIT LOW/MODER SEVERITY EMERGENCY 93084 [facility] HERNANDEZ 6 6 PHYSICIAN DEPARTMEN S, [facility] T VISIT HIGH/URGE NT SEVERITY OFFICE 38854 [facility] [facility] OUTPATIEN 6 6 PHYSICIAN T VISIT S GROUP 10 MINUTES OFFICE [id number] [facility] SHAUN OUTPATIEN 6 6 PHYSICIAN STONE T VISIT S GROUP ZUHAIR DUVAL 10 MINUTES EMERGENCY 96840 MILAGROS ESCUDERO 6 6 PHYSICIAN [facility] S, [facility] T VISIT MODERATE SEVERITY EMERGENCY 69183 RADHA 6 6 [facility] T VISIT LOW/MODER SEVERITY HOSPITAL RADHA - 6 6 [facility] OUTPATIEN [facility]PITAL RADHA [facility] 6 6 [facility] OUTPATIEN [facility] T EMERGENCY 12206 MILAGROS HERRERA 6 6 PHYSICIAN DEPARTMEN S, [facility] T VISIT MODERATE SEVERITY HOSPITAL RADHA - 6 6 [facility]PAT[facility]EN [facility] EMERGENCY [address] [facility] T VISIT LIMITED/M INOR PROB HOSPITAL RADHA - 6 6 [facility] OUTPATIEN [facility] EMERGENCY 19407 MILAGROS ESCUDERO 6 6 PHYSICIAN [facility] T VISIT MODERATE SEVERITY EMERGENCY 14736 RADHA 6 6 [facility] T VISIT LOW/MODER SEVERITY HOSPITAL RADHA - 6 6 [facility] RADHA - 6 6 [facility] RADHA - 5 5 [facility] RADHA - 5 5 [facility] OFFICE 54070 [facility] 5 MEDICAL KERLINE T VISIT SERV 25 FOUNDATIO MINUTES N HOSPITAL RADHA - 5 5 [facility] OUTPATIEN [facility] T EMERGENCY 35901 MILAGROS ESCUDERO DEPT 5 5 PHYSICIAN ISAAC VISIT S, PLLC HIGH SEVERITY& THREAT FUNCJ EMERGENCY 25837 RADHA 5 5 [facility] DEPARTMEN INC T VISIT LOW/MODER SEVERITY HOSPITAL RADHA - 5 5 [facility] OUTPATIEN INC T EMERGENCY 03664 MILAGROS MULTANI DEPT 5 5 PHYSICIAN JR COYNE VISIT S, PLLC HIGH SEVERITY& THREAT FUNCJ EMERGENCY 78637 RADHA 5 5 [facility] DEPARTMEN INC T VISIT HIGH/URGE NT SEVERITY OFFICE 81029 [facility] YEMII OUTPATIEN 5 5 PHYSICIAN ISAAC T VISIT S GROUP 10 MINUTES HOSPITAL RADHA - 5 5 [facility] OUTPATIEN INC T EMERGENCY 36134 RADHA 5 5 [facility] DEPARTMEN INC T VISIT LOW/MODER SEVERITY EMERGENCY 79061 MILAGROS ESCUDERO 5 5 PHYSICIAN ISAAC [facility], [facility] VISIT MODERATE SEVERITY OFFICE 12911 [facility] YEIMI OUTPATIEN 5 5 PHYSICIAN ISAAC T VISIT S GROUP 25 MINUTES EMERGENCY 85703 MILAGROS ESCALANTE 5 5 PHYSICIAN KETAN DEPARTMEN S, [facility] T VISIT MODERATE SEVERITY OFFICE 51415 [facility] YEIMI OUTPATIEN 5 5 PHYSICIAN ISAAC T VISIT S GROUP 15 MINUTES HOSPITAL RADHA - 5 5 [facility] OUTPATIEN INC T EMERGENCY 05802 [facility] 5 5 DEPARTMEN T VISIT HIGH/URGE NT SEVERITY EMERGENCY 58900 SUSHILA Abdalla 5 5 DEPARTMEN T VISIT MODERATE SEVERITY OFFICE 49899 [facility] YEIMI OUTPATIEN 5 5 PHYSICIAN ISAAC T VISIT S GROUP 25 MINUTES HOSPITAL RADHA - 5 5 [facility] OUTPATIEN INC T EMERGENCY 81475 [facility] 5 [facility]ISIT HIGH/URGE NT SEVERITY EMERGENCY 14842 EYIMI YEIMI 5 5 ISAAC ISAAC [facility] T VISIT MODERATE SEVERITY HOSPITAL RADHA - 5 5 [facility] OUTPATIEN INC T OFFICE 33711 A[facility]LI [place] [facility] OUTPATIEN 5 5 MEDICAL T VISIT SERV 25 FOUNDATIO MINUTES N HOSPITAL RADHA - 5 5 [facility] OUTPATIEN INC T OFFICE 24683 [facility] OUTPATIEN 5 5 PHYSICIAN T VISIT S GROUP 15 MINUTES OFFICE 78583 [facility] YEIMI OUTPATIEN 5 5 PHYSICIAN ISAAC T VISIT S GROUP 15 MINUTES OFFICE 79260 [facility] YEIMI OUTPATIEN 5 5 PHYSICIAN ISAAC T VISIT S GROUP 15 MINUTES HOSPITAL RADHA - 5 5 [facility] OUTPATIEN INC T EMERGENCY 26753 RADHA 4 4 [facility] T VISIT LOW/MODER SEVERITY HOSPITAL RADHA - 4 4 [facility] OUTPATIEN [facility] T EMERGENCY 30028 RADHA JEAN BAPTISTE 4 4 [facility] T VISIT P HIGH/URGE NT SEVERITY EMERGENCY 57381 RADHA DE JESUS 4 4 [facility] VISIT P HIGH/URGE NT SEVERITY HOSPITAL RADHA Terrazas 4 4 [facility] T EMERGENCY 74820 RADHA GUSMAN 4 4 [facility] T VISIT P LOW/MODER SEVERITY EMERGENCY 20337 RADHA 4 4 [facility] T VISIT HIGH/URGE NT SEVERITY HOSPITAL RADHA - 4 4 [facility] OUTPATIEN INC T EMERGENCY 69573 SEN CHATTERJEE 4 4 NEAL NEAL DEPARTMEN T VISIT HIGH/URGE NT SEVERITY OFFICE 22900 [place] DIALLO OUTPATIEN [address] T VISIT SERV 25 FOUNDATIO MINUTES HOSPITAL UNIVERSIT - 4 4 [facility] 88833 MARLI CALLES [facility] DEPT 4 4 VISIT HIGH SEVERITY& THREAT FUNCJ HOSPITAL RADHA - 4 4 [facility] OUTPATIEN INC T OFFICE 16806 ANALI [place] AN[facility] OUTPATIEN 4 4 MEDICAL T VISIT SERV 15 FOUNDATIO MINUTES [facility] RADHA - 4 4 [facility] OUTPATIEN [facility] T OFFICE 16366 [facility] PHYSICIAN ISAAC T NEW 30 S GROUP MINUTES EMERGENCY 87286 [facility] DEPT 4 4 [facility] VISIT HIGH SEVERITY& THREAT FUNCJ EMERGENCY 16448 [facility] DEPT 4 4 [facility] VISIT HIGH SEVERITY& THREAT FUNCJ EMERGENCY 30627 [facility] VORKPOR 4 4 [facility] DEPARTMEN T VISIT HIGH/URGE NT SEVERITY EMERGENCY 53568 [facility] VORKPOR 4 4 [facility] DEPARTMEN T VISIT HIGH/URGE NT SEVERITY EMERGENCY 31110 ALFARIS ALFARIS 4 4 [facility] DEPARTMEN T VISIT HIGH/URGE NT SEVERITY EMERGENCY 00356 KIT KIT 4 4 IMT IMT DEPARTMEN T VISIT MODERATE SEVERITY EMERGENCY 65049 YEIMI ESCUDERO 4 4 ISAAC ISAAC DEPARTMEN T VISIT MODERATE SEVERITY EMERGENCY 12450 YEIMI ESCUDERO DEPT 4 4 ISAAC ISAAC VISIT HIGH SEVERITY& THREAT FUNCJ EMERGENCY 92498 [facility] MCNAMARA 4 4 CONRAD BRO DEPARTMEN EMERGENCY T VISIT PHYS HIGH/URGE NT SEVERITY EMERGENCY 14572 [facility] 4 4 CONRAD III JUAN ANTONIO DEPARTMEN EMERGENCY T VISIT PHYS MODERATE SEVERITY OFFICE 76567 RIGOBERTO ALVARADO 4 4 LEE ANN LEE ANN T VISIT 15 MINUTES Emergency LIZETTE Calles MD (ER) 4 20:36 4 22:44 [facility] EMERGENCY 46053 MARLI RAPP DEPT 4 4 VISIT HIGH SEVERITY& THREAT FUNCJ Emergency LIZETTE MCNAMARA MD (ER) 4 18:43 4 20:06 [facility] EMERGENCY 19058 ANDERS MCNAMARA 4 4 [facility] DEPARTMEN T VISIT HIGH/URGE NT SEVERITY OFFICE 48262 YARA ANT YARA ANT OUTPATIEN 3 3 T VISIT 15 MINUTES OFFICE 75548 RIGOBERTO ALVARADO 3 3 LEE ANN LEE ANN T VISIT 15 MINUTES Emergency LIZETTE Escudero MD (ER) 3 17:45 3 18:59 [facility] EMERGENCY 98262 YEIMI ESCUDERO 3 3 ISAAC ISAAC DEPARTMEN T VISIT MODERATE SEVERITY Emergency LIZETTE Calles MD (ER) 3 16:38 3 17:11 [facility] EMERGENCY 74634 MARLI RAPP 3 3 DEPARTMEN T VISIT MODERATE SEVERITY Emergency LIZETTE Escudero MD (ER) 3 20:44 3 21:15 [facility] OFFICE 79456 RIGOBERTO ALVARADO 3 3 LEE ANN LEE ANN T VISIT 15 MINUTES Emergency LIZETTE Calles MD (ER) 3 14:40 3 16:39 [facility] EMERGENCY 02470 LIAM RAPP 3 3 EMERGENCY DEPARTMEN SERVICES T VISIT HIGH/URGE NT SEVERITY HOSPITAL UNIVERSIT - 3 3 [facility] T Emergency LIZETTE DIEZ (ER) 3 16:51 3 18:46 Gal[facility] A EMERGENCY 97107 CHARY DIEZ 3 3 [place] [place] DEPARTMEN T VISIT HIGH/URGE NT SEVERITY EMERGENCY 80047 RADHA 3 3 [facility] DEPARTMEN INC T VISIT LOW/MODER SEVERITY HOSPITAL RAHDA - 3 3 [facility] OUTPATIEN INC T Emergency LIZETTE Escudero MD (ER) 3 21:28 3 22:25 [facility] RADHA - 3 3 [facility] OUTPATIEN INC T EMERGENCY 28457 RADHA 3 3 [facility] DEPARTMEN INC T VISIT LOW/MODER SEVERITY EMERGENCY 32789 YEIMI ESCUDERO DEPT 3 3 ISAAC ISAAC VISIT HIGH SEVERITY& THREAT FUNCJ Emergency LIZETTE DIEZ (ER) 3 14:18 3 16:42 [facility] EMERGENCY 45323 CHARY DIEZ 3 3 FERNANDO [place] DEPARTMEN T VISIT HIGH/URGE NT SEVERITY EMERGENCY 53188 RADHA 3 3 [facility] DEPARTMEN INC T VISIT LOW/MODER SEVERITY HOSPITAL RADHA - 3 3 [facility] OUTPATIEN INC T Emergency LIZETTE Escudero MD (ER) 3 21:00 3 22:57 [facility] RADHA - 3 3 [facility] OUTPATIEN INC T EMERGENCY 84231 RADHA 3 3 [facility] DEPARTMEN INC T VISIT MODERATE SEVERITY EMERGENCY 71521 YEIMI ESCUDERO 3 3 ISAAC ISAAC DEPARTMEN T VISIT HIGH/URGE NT SEVERITY HOSPITAL RADHA Sr 3 [facility] INPATIENT INC OFFICE 94541 WENDY NGUYEN CONSULTAT 3 3 [facility]EL[facility] NEW/ESTAB PATIENT 60 MIN HOSPITAL RADHA - 3 3 [facility] OUTPATIEN [facility] T HOSPITAL RADHA - 3 3 [facility] OUTPATIEN [facility] T EMERGENCY 40984 RADHA 3 3 [facility] DEPARTMEN [facility] T VISIT MODERATE SEVERITY EMERGENCY 62278 MICHAEL RODRIGUEZ DEPT 3 3 III JUAN ANTONIO III JUAN ANTONIO VISIT HIGH SEVERITY& THREAT [facility] OFFICE 99006 YARA ANT YARA ANT OUTPATIEN 3 3 T VISIT 15 MINUTES EMERGENCY 50543 LIAM RAPP DEPT 2 2 EMERGENCY VISIT SERVICES HIGH SEVERITY& THREAT [facility] RADHA - 2 2 [facility] OUTPATIEN [facility] EMERGENCY 55774 RADHA 2 2 [facility] DEPARTMEN [facility] T VISIT HIGH/URGE NT SEVERITY OFFICE 51105 RIGOBERTO FRANKLIN OUTPATIEN 2 2 LEE ANN LEE ANN T VISIT 15 MINUTES HOSPITAL RADHA - 2 2 [facility] OUTPATIEN [facility] OFFICE 75158 YARA ANT YARA ANT OUTPATIEN 2 2 T VISIT 25 MINUTES HOSPITAL RADHA - 2 2 [facility] OUTPATIEN [facility] T EMERGENCY 30810 RADHA 2 2 [facility] DEPARTMEN [facility] T VISIT MODERATE SEVERITY EMERGENCY 64579 YEIMI ESCUDERO 2 2 [facility] VISIT HIGH/URGE NT SEVERITY HOSPITAL RADHA - 2 2 [facility] OUTPATIEN [facility] T EMERGENCY 50859 RADHA 2 2 [facility] DEPARTMEN [facility] T VISIT LOW/MODER SEVERITY HOSPITAL RADHA - 2 2 [facility] OUTPATIEN [facility] T EMERGENCY 12452 YEIMI ESCUDERO 2 2 ISAAC ISAAC DEPARTMEN T VISIT HIGH/URGE NT SEVERITY HOSPITAL RADHA - 2 2 [facility] OUTPATIEN INC T OFFICE 28331 YARA TO OUTPATIEN 2 2 T VISIT 25 MINUTES HOSPITAL RADHA - 2 2 [facility] OUTPATIEN INC T HOSPITAL RADHA - 2 2 [facility] OUTPATIEN INC T EMERGENCY 97623 MICHAEL RODRIGUEZ 2 2 III JUAN ANTONIO III JUAN ANTONIO DEPARTMEN T VISIT HIGH/URGE NT SEVERITY EMERGENCY 63874 MICHAEL RODRIGUEZ DEPT 2 2 III JUAN ANTONIO III JUAN ANTONIO VISIT HIGH SEVERITY& THREAT FUNCJ EMERGENCY 78215 RADHA 2 2 [facility] DEPARTMEN INC T VISIT HIGH/URGE NT SEVERITY HOSPITAL RADHA - 2 2 [facility] OUTPATIEN INC T HOSPITAL RADHA - 2 2 [facility] OUTPATIEN [facility] T EMERGENCY 99324 RADHA 2 2 [facility] DEPARTMEN INC T VISIT MODERATE SEVERITY EMERGENCY 35060 LIAM ESCUDERO DEPT 2 2 EMERGENCY ISAAC VISIT SERVICES HIGH SEVERITY& THREAT FUNJ OFFICE 45012 RIGOBERTO FRANKLIN OUTPATIEN 2 2 LEE ANN LEE ANN T VISIT 15 MINUTES EMERGENCY 76520 RADHA 2 2 [facility] DEPARTMEN INC T VISIT MODERATE SEVERITY EMERGENCY 09765 LIAM ESCUDERO 2 2 EMERGENCY ISAAC DEPARTMEN SERVICES T VISIT HIGH/URGE NT SEVERITY HOSPITAL RADHA - 2 2 [facility] OUTPATIEN INC T EMERGENCY 33518 RADHA 2 2 [facility] DEPARTMEN INC T VISIT LIMITED/M INOR PROB HOSPITAL RADHA - 2 2 [facility] OUTPATIEN INC T EMERGENCY 49177 LIAM ESCUDERO 2 2 EMERGENCY [facility] DEPARTMEN SERVICES T VISIT HIGH/URGE NT SEVERITY EMERGENCY 01726 RADHA 2 2 [facility] DEPARTMEN INC T VISIT MODERATE SEVERITY EMERGENCY 08044 LIAM ESCUDERO 2 2 [facility]ISIT HIGH/URGE NT SEVERITY [facility]OSP[facility] RADHA - 2 2 [facility] OUTPATIEN INC T OFFICE 01169 RIGOBERTO FRANKLIN OUTPATIEN 2 2 LEE ANN LEE ANN T VISIT 15 MINUTES EMERGENCY 51229 LIAM RODRIGUEZ 2 2 EMERGENCY III [facility] SERVICES T VISIT HIGH/URGE NT SEVERITY HOSPITAL RADHA - 2 2 [facility] OUTPATIEN INC T EMERGENCY 38319 RADHA 2 2 [facility] T VISIT LOW/MODER SEVERITY HOSPITAL RADHA - 2 2 [facility] OUTPATIEN INC T OFFICE 68760 RIGOBERTO FRANKLIN OUTPATIEN 2 2 LEE ANN LEE ANN T VISIT 15 MINUTES HOSPITAL RADHA - 1 1 [facility] OUTPATIEN INC T EMERGENCY 26254 RADHA 1 1 [facility] T VISIT HIGH/URGE NT SEVERITY EMERGENCY 45042 MICHAEL RODRIGUEZ DEPT 1 1 III JUAN ANTONIO III JUAN ANTONIO VISIT HIGH SEVERITY& THREAT FUNCJ OFFICE 70376 YARA ANT YARA ANT OUTPATIEN 1 1 T VISIT 25 MINUTES HOSPITAL RADHA - 1 1 [facility] OUTPATIEN INC T [facility]OSPITAL RADHA - 1 1 [facility] OUTPATIEN INC T EMERGENCY 81508 LIAM SPRAGUE DEPT 1 1 EMERGENCY VISIT SERVICES HIGH SEVERITY& THREAT FUNCJ EMERGENCY 49711 RADHA 1 1 [facility] DEPARTMEN INC T VISIT HIGH/URGE NT SEVERITY OFFICE 67839 RIGOBERTO FRANKLIN OUTPATIEN 1 1 LEE ANN LEE ANN T VISIT 15 MINUTES EMERGENCY 11704 RADHA 1 1 [facility] DEPARTMEN INC T VISIT LOW/MODER SEVERITY HOSPITAL RADHA - 1 1 [facility] OUTPATIEN INC T EMERGENCY 44186 LIAM TRINH 1 1 EMERGENCY DEPARTMEN SERVICES T VISIT HIGH/URGE NT SEVERITY HOSPITAL RADHA - 1 1 [facility] OUTPATIEN INC T HOSPITAL RADHA - 1 1 [facility] OUTPATIEN INC T EMERGENCY 86054 LIAM ESCUDERO 1 1 EMERGENCY ISAAC DEPARTMEN SERVICES T VISIT HIGH/URGE NT SEVERITY EMERGENCY 81311 RADHA 1 1 [facility] DEPARTMEN INC T VISIT LOW/MODER SEVERITY EMERGENCY 98493 RADHA 1 1 [facility] DEPARTMEN INC T VISIT MODERATE SEVERITY EMERGENCY 43043 LIAM SPRAGUE 1 1 EMERGENCY DEPARTMEN SERVICES T VISIT HIGH/URGE NT SEVERITY HOSPITAL RADHA - 1 1 [facility] OUTPATIEN INC T OFFICE 41339 ANALI TO OUTPATIEN 1 1 MEDICAL T VISIT SERV 25 FOUNDATIO MINUTES HOSPITAL RADHA - 1 1 [facility] OUTPATIEN INC T EMERGENCY 80149 RADHA 1 1 [facility] DEPARTMEN INC T VISIT HIGH/URGE NT SEVERITY EMERGENCY 29272 LIAM RODRIGUEZ DEPT 1 1 EMERGENCY III JUAN ANTONIO VISIT SERVICES HIGH SEVERITY& THREAT [facility] RADHA - 1 1 [facility] OUTPATIEN INC T EMERGENCY 96416 RADHA 1 1 [facility] DEPARTMEN INC T VISIT HIGH/URGE NT SEVERITY EMERGENCY 83509 LIAM ESCUDERO DEPT 1 1 EMERGENCY ISAAC VISIT SERVICES HIGH SEVERITY& THREAT [facility] RAD[facility] - 1 1 [facility] OUTPATIEN INC T [facility]OSPITAL RADHA - 1 1 [facility] OUTPATIEN INC T EMERGENCY 01406 RADHA 1 1 [facility] DEPARTMEN INC T VISIT MODERATE SEVERITY EMERGENCY 93504 LIAM TRINH 1 1 EMERGENCY DEPARTMEN SERVICES T VISIT HIGH/URGE NT SEVERITY OFFICE 82722 RIGOBERTO ALVARADO 1 1 LEE ANN LEE ANN T VISIT 15 MINUTES OFFICE 45415 RIGOBERTO ALVARADO 1 1 LEE ANN LEE ANN T VISIT 15 MINUTES EMERGENCY 11996 RADHA 1 1 [facility] DEPARTMEN INC T VISIT HIGH/URGE NT SEVERITY HOSPITAL RADHA - 1 1 [facility] OUTPATIEN INC T EMERGENCY 85104 LIAM RODRIGUEZ DEPT 1 1 EMERGENCY III JUAN ANTONIO VISIT SERVICES HIGH SEVERITY& THREAT FUNCJ OFFICE 57625 RADHA THOMASON OUTPATIEN [address] RADHA - 1 1 [facility] OUTPATIEN INC T EMERGENCY 01322 RADHA 1 1 [facility] DEPARTMEN INC T VISIT LOW/MODER SEVERITY HOSPITAL RADHA - 1 1 [facility] OUTPATIEN INC T EMERGENCY 15088 LIAM ESCUDERO DEPT 1 1 EMERGENCY ISAAC VISIT SERVICES HIGH SEVERITY& THREAT FUNCJ OFFICE 86984 ANALI TO OUTPATIEN 0 0 MEDICAL T VISIT SERV 25 FOUNDATIO MINUTES EMERGENCY 77721 LIAM ESCUDERO 0 0 EMERGENCY ISAAC DEPARTMEN SERVICES T VISIT HIGH/URGE NT SEVERITY OFFICE 10878 RIGOBERTO ALVARADO 0 0 LEE ANN LEE ANN T VISIT 15 MINUTES OFFICE 20288 RIGOBERTO FRANKLIN OUTPATIEN 0 0 LEE ANN LEE ANN T VISIT 15 MINUTES EMERGENCY 58302 LIAM ESCUDERO 0 0 EMERGENCY [facility] DEPARTMEN SERVICES T VISIT HIGH/URGE NT SEVERITY HOSPITAL RADHA - 0 0 [facility] OUTPATIEN INC T EMERGENCY 42095 RADHA 0 0 [facility] DEPARTMEN INC T VISIT LIMITED/M INOR PROB OFFICE 68878 RIGOBERTO FRANKLIN OUTPATIEN 0 0 LEE ANN LEE ANN T VISIT 15 MINUTES OFFICE 06768 RIGOBERTO FRANKLIN OUTPATIEN 0 0 LEE ANN LEE ANN T VISIT 15 MINUTES HOSPITAL RADHA - 0 0 [facility] OUTPATIEN INC T OFFICE 29033 [facility] OUT[facility] 0 0 MEDICAL T VISIT SERV 25 FOUNDATIO MINUTES [facility] RADHA - 0 0 [facility] OUTPATIEN INC T EMERGENCY 12514 RADHA 0 0 [facility] DEPARTMEN INC T VISIT LIMITED/M INOR PROB EMERGENCY 66254 LIAM ESCUDERO 0 0 EMERGENCY [facility] DEPARTMEN SERVICES T VISIT HIGH/URGE NT SEVERITY HOSPITAL RADHA - 0 0 [facility] OUTPATIEN INC T EMERGENCY 72864 LIAM ESCUDERO, 0 0 EMERGENCY [facility] DEPARTMEN SERVICES T VISIT HIGH/URGE ASSOCIATE NT S SEVERITY EMERGENCY 97584 RADHA 0 0 [facility] DEPARTMEN INC T VISIT LIMITED/M INOR PROB OFFICE 06634 RIGOBERTO FRANKLIN OUTPATIEN 0 0 MAIRA Bernal T VISIT 15 MINUTES OFFICE 41143 RIGOBERTO FRANKLIN OUTPATIEN 0 0 MAIRA Bernal T VISIT 15 MINUTES HOSPITAL RADHA - 0 0 [facility] OUTPATIEN INC T EMERGENCY 68746 LIAM ESCUDERO, 0 0 EMERGENCY SARAH S DEPARTMEN SERVICES T VISIT HIGH/URGE ASSOCIATE NT S SEVERITY EMERGENCY 72721 RADHA 0 0 [facility] DEPARTMEN INC T VISIT LOW/MODER SEVERITY OFFICE 37899 RIGOBERTO FRANKLIN OUTPATIEN 0 0 MAIRA Bernal T VISIT 15 MINUTES OFFICE 58229 JENNY MORALES 0 0 MEDICAL CALVIN T VISIT SERV 25 FOUNDATIO MINUTES OFFICE 48241 RIGOBERTO FRANKLIN OUTPATIEN 0 0 MAIRA Bernal T VISIT 15 MINUTES EMERGENCY 07512 LIAM RODRIGUEZ DEPT 0 0 EMERGENCY III, VISIT SERVICES REY HIGH SEVERITY& ASSOCIATE THREAT S [facility] EMERGENCY 87128 RADHA 0 0 [facility] DEPARTMEN INC T VISIT MODERATE SEVERITY HOSPITAL RADHA - 0 0 [facility] OUTPATIEN INC T EMERGENCY 41582 LIAM RODRIGUEZ DEPT 0 0 EMERGENCY III, VISIT SERVICES REY HIGH SEVERITY& ASSOCIATE THREAT S [facility] RADHA - 0 0 [facility] OUTPATIEN INC T OFFICE 11769 RIGOBERTO FRANKLIN OUTPATIEN 0 0 MAIRA Bernal T VISIT 15 MINUTES EMERGENCY 67161 RADHA 0 0 [facility] DEPARTMEN INC T VISIT MODERATE SEVERITY HOSPITAL RADHA - 0 0 [facility] OUTPATIEN INC T HOSPITAL RADHA - 9 9 [facility] OUTPATIEN INC T OFFICE 80168 RIGOBERTO FRANKLIN OUTPATIEN 9 9 MAIRA Bernal T VISIT 15 MINUTES OFFICE 79257 JENNY MORALES 9 9 MEDICAL CALVIN T VISIT SERV 15 FOUNDATIO MINUTES OFFICE 36445 JENNY WILKERSON 9 9 S KP Bernal T NEW 30 SERVICES MINUTES PSC OFFICE 92217 RIGOBERTO FRANKLIN OUTPATIEN 9 9 MAIRA Bernal T VISIT 15 MINUTES EMERGENCY 27430 LIAM ESCUDERO, 9 9 [facility]Y [facility] T VISIT MODERATE ASSOCIATE SEVERITY S HOSPITAL RADHA - 9 9 [facility] OUTPATIEN INC T OFFICE 51601 JENNY MORALES 9 9 PETRA CALVIN T VISIT SERV 25 FOUNDATIO MINUTES OFFICE 96723 RIGOBERTO FRANKLIN OUTPATIEN 9 9 MAIRA Bernal T VISIT 15 MINUTES OFFICE 32339 RIGOBERTO FRANKLIN OUTPATIEN 9 9 MAIRA Bernal T VISIT 15 MINUTES HOSPITAL RADHA - 9 9 [facility] OUTPATIEN INC T EMERGENCY 19286 LIAM OAKLEY, 9 9 EMERGENCY [facility] DEPARTMEN SERVICES T VISIT HIGH/URGE ASSOCIATE NT S SEVERITY EMERGENCY 60833 [facility] 9 9 [facility] DEPARTMEN INC T VISIT LIMITED/M INOR PROB EMERGENCY 08616 LIAM ESCUDERO, 9 9 EMERGENCY [facility] T VISIT MODERATE ASSOCIATE SEVERITY S [facility]OSP[facility] - 9 9 [facility] OUTPATIEN INC T EMERGENCY 63910 [facility] 9 9 [facility] DEPARTMEN INC T VISIT LOW/MODER SEVERITY OFFICE 78740 RIGOBERTO FRANKLIN OUTPATIEN 9 9 MAIRA Bernal T VISIT 15 MINUTES OFFICE 74905 SIENNA EL OUTPATIEN 9 9 KP KP T VISIT 25 MINUTES [facility]OSPITAL [facility] - 9 9 [facility] INC T OFFICE 97208 RIGOBERTO FRANKLIN OUTPATIEN 9 9 MAIRA Bernal T VISIT 15 MINUTES [facility]OSP[facility] - 9 9 [facility]IEN INC T OFFICE 94745 SIENNA EL CONSULTAT 9 9 KP SAMUELS MAGGIE/ESTAB PATIENT 80 MIN [facility]OSP[facility] - 9 9 [facility] OUT[facility]IEN INC T OFFICE 07784 JENNY MORALES 9 9 PETRA SIMPSON T VISIT SERV 25 FOUNDATIO MINUTES EMERGENCY 45722 LIAM FISHMAN, 9 9 EMERGENCY [facility] DEPARTMEN SERVICES O T VISIT HIGH/URGE ASSOCIATE NT S SEVERITY EMERGENCY 89155 [facility] 9 9 [facility] DEPARTMEN INC T VISIT LIMITED/M INOR PROB HOSPITAL [facility] - 9 9 [facility] OUTPATIEN INC T OFFICE 29347 RIGOBERTO FRANKLIN OUTPATIEN 9 9 MAIRA Bernal T VISIT 15 MINUTES [facility]OSPITAL [facility] - 9 9 [facility] OUTPATIEN INC T EMERGENCY 25151 [facility] 9 9 [facility] DEPARTMEN INC T VISIT LOW/MODER SEVERITY EMERGENCY 02957 LIAM ESCUDERO, 9 9 EMERGENCY SARAH S DEPARTMEN SERVICES T VISIT MODERATE ASSOCIATE SEVERITY S OFFICE 22524 RIGOBERTO FRANKLIN OUTPATIEN 9 9 MAIRA Bernal T VISIT 15 MINUTES EMERGENCY 11644 [facility], 9 9 [facility] SARAH DEPARTMEN EMERGENCY T VISIT PHYS INC HIGH/URGE NT SEVERITY EMERGENCY 69181 LIAM CARRION DEPT 9 9 EMERGENCY [place] VISIT SERVICES HIGH SEVERITY& ASSOCIATE THREAT S [facility] - 9 9 [facility] OUTPATIEN INC T EMERGENCY 34121 [facility] 9 9 [facility] DEPARTMEN INC T VISIT MODERATE SEVERITY OFFICE 25776 RIGOBERTO FRANKLIN OUTPATIEN 9 9 MAIRA Bernal T VISIT 15 MINUTES [facility]OSPITAL [facility] - 9 9 [facility] OUT[facility]IEN INC T OFFICE 58870 JENNY MORALES 9 9 PETRA SIMPSON T VISIT SERV 25 FOUNDATIO MINUTES OFFICE 32264 RIGOBERTO FRANKLIN OUTPATIEN 9 9 MAIRA Bernal T VISIT 15 MINUTES [facility]OSPITAL [facility] - 9 9 [facility] OUTPATIEN INC T EMERGENCY 85818 [facility] 9 9 [facility] DEPARTMEN INC T VISIT LOW/MODER SEVERITY EMERGENCY 29821 LIAM O[place], 9 9 EMERGENCY [facility] DEPARTMEN SERVICES T VISIT MODERATE ASSOCIATE SEVERITY S [facility]OSP[facility] - 9 9 [facility] OUTPATIEN INC T OFFICE 61399 RIGOBERTO FRANKLIN OUTPATIEN 9 9 MAIRA Bernal T VISIT 15 MINUTES [facility] - 9 9 [facility] EMERGENCY 32701 MARLEN COOPER DEPT 9 9 [facility] [place] [place] VISIT EMERGENCY HIGH PHYS INC SEVERITY& THREAT FUN OFFICE 29644 RIGOBERTO FRANKLIN OUTPATIEN 9 9 MAIRA Bernal T VISIT 15 MINUTES EMERGENCY 14850 LIAM ESCUDERO 9 9 EMERGENCY [facility] DEPARTMEN SERVICES T VISIT HIGH/URGE ASSOCIATE NT S SEVERITY EMERGENCY 54282 [facility] 9 9 [facility] DEPARTMEN INC T VISIT LOW/MODER SEVERITY [facility] - 9 9 [facility] OUTPATIEN INC T OFFICE 47454 RIGOBERTO FRANKLIN OUTPATIEN 9 9 MAIRA Bernal T VISIT 15 MINUTES [facility]OSPITAL [facility] - 9 9 [facility] OUTPATIEN INC T EMERGENCY 95781 LIAM OAKLEY, DEPT 9 9 EMERGENCY [facility] P VISIT SERVICES HIGH SEVERITY& ASSOCIATE THREAT S [facility] EMERGENCY 59130 [facility] 9 9 [facility] DEPARTMEN INC T VISIT HIGH/URGE NT SEVERITY OFFICE 27377 RIGOBERTO FRANKLIN OUTPATIEN 9 9 MAIRA Bernal T VISIT 15 MINUTES EMERGENCY 04933 RADHA 9 9 [facility] DEPARTMEN INC T VISIT LOW/MODER SEVERITY EMERGENCY 53386 JOSE ESCUDERO, 9 9 [facility] T VISIT ON HIGH/URGE NT SEVERITY HOSPITAL RADHA - 9 9 [facility] OUTPATIEN INC T OFFICE 67408 [facility]OMEN'S DELCID, CONSULTAT 9 9 [facility] NEW/ESTAB PATIENT RIKKI 60 MIN [facility] EM[facility]GENC[facility] 98633 MARLEN GERMAN, DEPT 9 9 [facility] [place] VISIT EMERGENCY HIGH PHYS INC SEVERITY& THREAT FUNJ OFFICE 68984 RIGOBERTO FRANKLIN OUTPATIEN 9 9 MAIRA Bernal T VISIT 15 MINUTES EMERGENCY 39270 JOSE ESCUDERO, 9 9 [facility] LOW/MODER SEVERITY EMERGENCY 46520 RADHA 9 9 [facility] V[facility]/M [facility] RADHA - 9 9 [facility] OUTPATIEN INC T OFFICE 68062 RIGOBERTO FRANKLIN OUTPATIEN 9 9 MAIRA Bernal T VISIT 15 MINUTES EMERGENCY 15625 JOSE ESCUDERO, 9 9 [facility] T VISIT ON MODERATE SEVERITY HOSPITAL RADHA - 9 9 [facility] OUTPATIEN INC T EMERGENCY 47441 RADHA 9 9 [facility] T VISIT LOW/MODER SEVERITY OFFICE 00431 RIGOBERTO FRANKLIN OUTPATIEN 9 9 MAIRA Bernal T VISIT 15 MINUTES EMERGENCY 58553 [facility], DEPT 9 9 CON[facility] [place] VISIT EMERGENCY HIGH PHYS INC SEVERITY& THREAT FUNCJ EMERGENCY 14820 RADHA 9 9 [facility] DEPART[facility] T VISIT LIMITED/M [facility]ITAL RAD[facility] - 9 9 [facility] OUTPATIEN INC T EMERGENCY 06019 JOSE ESCUDERO, 9 9 [facility] T VIS[facility] ON MODERATE SEVERITY OFFICE 89346 RIGOBERTO FRANKLIN OUTPATIEN 8 8 MAIRA Bernal MAIRA Gabe T VISIT 15 MINUTES OFFICE 82231 RIGOBERTO FRANKLIN OUTPATIEN 8 8 MAIRA Bernal T VISIT 15 MINUTES OFFICE 00147 JENNY MORALES 8 8 PETRA SIMPSON T VISIT SERV 15 FOUNDATIO MINUTES HOSPITAL RADHA - 8 8 [facility] OUTPATIEN INC T OFFICE 83028 RIGOBERTO FRANKLIN OUTPATIEN 8 8 MAIRA Bernal T VISIT 15 MINUTES OFFICE 88569 RIGOBERTO FRANKLIN OUTPATIEN 8 8 MAIRA Bernal T VISIT 15 MINUTES OFFICE 37490 WENDY NGUYEN OUTGENARO 8 8 , CALEB ELLIS T VISIT 15 MINUTES HOSPITAL RADHA - 8 8 [facility] OUTPATIEN INC T OFFICE 39781 JUANASTBUD SCHULSTAD CONSULTAT 8 8 CALEB KARL ION NEW/ESTAB PATIENT 60 MIN EMERGENCY 24498 [facility] 8 8 [facility] DEPARTMEN INC T VISIT HIGH/URGE NT SEVERITY OFFICE 85046 RIGOBERTO FRANKLIN OUTPATIEN 8 8 MAIRA RAO W T VISIT 15 MINUTES HOSPITAL RADHA - 8 8 [facility] OUTPATIEN INC T OFFICE 06672 JENNY MORALES 8 8 MEDICAL [facility] T VISIT SERV 25 FOUNDATIO MINUTES OFFICE 47378 RIGOBERTO FRANKLIN OUTPATIEN 8 8 MAIRA Bernal T VISIT 15 MINUTES OFFICE 91545 RIGOBERTO FRANKLIN OUTPATIEN 8 8 MAIRA Bernal T VISIT 15 MINUTES EMERGENCY 00592 [facility] 8 8 [facility] DEPART[facility] INC T VISIT LIMITED/M [facility]HA - 8 8 [facility] OUTPATIEN INC T OFFICE 29935 RIGOBERTO FRANKLIN OUTPATIEN 8 8 MAIRA Bernal T VISIT 15 MINUTES OFFICE 47911 JENNY MORALES 8 8 [facility] T VISIT SERV 25 FOUNDATIO MINUTES HOSPITAL UNIVERS - 8 8 Y OUTPATI HOSPITAL T EMERGENCY 08168 ANALI RYAN, 8 8 [facility] T DEPARTMEN SERV T VISIT FOUNDATIO HIGH/URGE NT SEVERITY EMERGENCY 98026 UNIVERSIT DEPT 8 8 Y VISIT HOSPITAL HIGH SEVERITY& THREAT FUNCJ OFFICE 43037 RIGOBERTO FRANKLIN OUTPATIEN 8 8 MAIRA Bernal T VISIT 15 MINUTES EMERGENCY 62302 [facility] 8 8 [facility] DEPART[facility] INC T VISIT LIMITED/M [facility]HA - 8 8 [facility] OUTPAT[facility]EN INC T HOSPITAL RADHA - 8 8 [facility] OUTPATIEN INC T EMERGENCY 73222 RAD[facility] 8 8 [facility] DEPARTMEN INC T VISIT MODERATE SEVERITY HOSPITAL [facility] - 8 8 [facility]PAT[facility]EN [facility] T [facility] - 8 8 [facility] OUT[facility] INC T EMERGENCY 11231 JOSE CARRION, 8 8 [facility] T VISIT ON HIGH/URGE NT SEVERITY HOSPITAL RADHA - 8 8 [facility] OUTPATIEN [facility] T EMERGENCY 10138 JOSE CARRION, 8 8 [facility] T VISIT ON HIGH/URGE NT SEVERITY OFFICE 85862 JENNY MORALES 8 8 [facility] T VISIT SERV 15 FOUNDATIO MINUTES OFFICE 58891 RIGOBERTO FRANKLIN [facility] 8 8 MAIRA Bernal T VISIT 15 MINUTES HOSPITAL RADHA - 8 8 [facility] OUTPATIEN [facility] T EMERGENCY [address] [facility] T VISIT LIMITED/M [facility] RADHA - 8 8 [facility] OUTPATIEN [facility] T EMERGENCY [address] [facility] T VISIT LOW/MODER SEVERITY OFFICE 27959 JENNY MORALES 8 8 [facility] T VISIT SERV 25 FOUNDATIO MINUTES HOSPITAL RADHA - 8 8 [facility] OUTPATIEN [facility] T HOSPITAL RADHA [facility] 8 8 [facility] OUTPATIEN [facility] T EMERGENCY 38749 RADHA 8 8 [facility] T VISIT LOW/MODER SEVERITY OFFICE 47112 WENDY NGUYEN CONSULTAT 8 8 , CALEB ELLIS NEW/ESTAB PATIENT 30 MIN HOSPITAL RADHA - 8 8 [facility] OUTPATIEN INC T EMERGENCY [address] [facility] [address] [facility] T VISIT LOW/MODER SEVERITY EMERGENCY 51849 RADHA 8 8 [facility] T VISIT LOW/MODER SEVERITY HOSPITAL [facility] - 8 8 [facility] OUTPAT[facility] INC T OFFICE 54335 RIGOBERTO FRANKLIN OUTPATIEN 8 8 MAIRA Bernal T VISIT 15 MINUTES EMERGENCY 92150 RADHA 8 8 [facility] DEPARTMEN INC T VISIT LIMITED/M [facility] RADHA - 8 8 [facility] OUTPATI[facility] INC T OFFICE 79775 YARA LIVINGSTON OUTPATIEN 8 8 [facility] T VISIT 25 MINUTES HOSPITAL RADHA - 8 8 [facility] OUTPATIEN INC T EMERGENCY 38453 RADHA 8 8 [facility] DEPARTMEN INC T VISIT LOW/MODER SEVERITY HOSPITAL RADHA - 8 8 [facility] OUTPATIEN INC T OFFICE 25583 JENNY MORALES 8 8 [facility] T VISIT SERV 15 FOUNDATIO MINUTES HOSPITAL RADHA - 8 8 [facility] OUTPATIEN INC T EMERGENCY 06033 RADHA 8 8 [facility] DEPARTMEN INC T VISIT LIMITED/M INOR PROB OFFICE 30299 RIGOBERTO FRANKLIN OUTPATIEN 8 8 MAIRA Bernal T NEW 30 MINUTES HOSPITAL RADHA - 8 8 [facility] OUTPATIEN INC T EMERGENCY 23819 RADHA 8 8 [facility] DEPARTMEN INC T VISIT LOW/MODER SEVERITY EMERGENCY 59873 RADHA GILLIAM, 8 8 [facility] T VISIT PROF SERV MODERATE SEVERITY HOSPITAL RAD[facility] - 8 8 [facility] OUTPATIEN INC T EMERGENCY 11060 RADHA GILLIAM, 8 8 [facility] T VISIT PROF SERV MODERATE SEVERITY EMERGENCY 17804 RADHA 8 8 [facility] DEPARTMEN INC T VISIT LOW/MODER SEVERITY EMERGENCY 91929 RADHA 8 8 [facility] T VISIT LOW/MODER SEVERITY HOSPITAL RADHA - 8 8 [facility] OUTPATIEN [facility] T OFFICE 90910 JENNY MORALES 8 8 PETRA SIMPSON T VISIT SERV 25 FOUNDATIO MINUTES EMERGENCY 28746 RADHA 8 8 [facility] T VISIT MODERATE SEVERITY HOSPITAL RADHA - 8 8 [facility] - 8 8 [facility] T
[2016-09-15 15:11] VITALS: BP 117/78
--- OUTSIDE RECORDS SUMMARY | 2016-09-15 15:30 | External Medical Summary Rpt ---
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 CH OK MA AR N- CY D CA W FF 50 -3 25 -4 0 65 01 01 00 15 5 WA 28 WE Ac 48 -0 -1 .0 LG 25 BB ti 30 4- 4- 00 RE 92 ve 70 20 20 EN 1 JI 21 10 10 S LL 0 (4 E 89 2 TR 00 11 12 01 90 30 CL 20 OK Ac AM 37 -0 -3 .0 IN 45 CK ti AD 84 9- 1- 00 IC 80 ve OL 15 20 20 GR 10 09 09 PH EG HC 5 AR OR L MA Y 50 CY E MG TA BL ET TI 00 11 12 01 90 30 CL 20 OK Ac ZA 18 -0 -1 .0 IN 43 CK ti NI 54 9- 7- 00 IC 90 ve DI 40 20 20 GR NE 05 09 09 PH EG 1 AR OR HC MA Y L CY E 4 MG TA BL ET LI 63 11 12 01 90 30 CL 20 OK Ac DO 48 -0 -1 .0 IN 43 CK ti DE 10 9- 7- 00 IC 91 ve RM 68 20 20 GR 70 09 09 PH EG 5% 6 AR OR MA Y PA CY E TC H 65 10 12 02 90 30 CL 20 CLAUDIA Ac 48 -0 -1 .0 IN 22 SC ti 30 7- 7- 00 IC 05 H ve 70 20 20 AN 21 09 09 PH TO 0 AR NI MA O CY 00 06 12 03 60 30 CL 19 OC Ac 83 -1 -1 .0 IN 60 ON ti 21 9- 7- 00 IC 44 NE ve 01 20 20 LL 50 09 09 PH 0 AR HARSHIL MA HN CY TO 68 06 12 04 60 30 CL 19 OC Ac PI 38 -1 -1 .0 IN 60 ON ti RA 20 9- 7- 00 IC 43 NE ve MA 13 20 20 LL TE 81 09 09 PH 4 AR HARSHIL 25 MA HN CY MG TA BL ET BU 00 11 12 00 60 10 CL 20 AR Ac TA 60 -3 -1 .0 IN 57 NO ti LB 32 0- 7- 00 IC 18 LD ve -A 54 20 20 CE 42 09 09 PH RI TA 8 AR CH OK MA AR N- CY D CA W FF 50 -3 25 -4 0 BU 00 12 12 00 60 30 CL 20 AR Ac IA 18 -0 -1 .0 IN 58 NO ti OP 50 2- 7- 00 IC 96 LD ve IO 41 20 20 N 56 09 09 PH RI HC 0 AR CH L MA AR SR CY D W 15 0 MG TA BL ET TR 00 11 11 00 90 30 CL 20 OK Ac AM 37 -0 -1 .0 IN 45 CK ti AD 84 9- 9- 00 IC 80 ve OL 15 20 20 GR 10 09 09 PH EG HC 5 AR OR L MA Y 50 CY E MG TA BL ET LI 63 11 11 00 90 30 CL 20 OK Ac DO 48 -0 -1 .0 IN 43 CK ti DE 10 9- 9- 00 IC 91 ve RM 68 20 20 GR 70 09 09 PH EG 5% 6 AR OR MA Y PA CY E TC H TI 55 11 11 00 90 30 CL 20 OK Ac ZA 11 -0 -1 .0 IN 43 CK ti NI 10 9- 9- 00 IC 90 ve DI 18 20 20 GR NE 01 09 09 PH EG 5 AR OR HC MA Y L CY E 4 MG TA BL ET 65 10 11 01 90 30 CL 20 CLAUDIA Ac 48 -0 -1 .0 IN 22 SC ti 30 7- 9- 00 IC 05 H ve 70 20 20 AN 21 09 09 PH TO 0 AR NI MA O CY TO 68 06 11 03 60 30 [...] 20 20 AI 82 09 09 D OK 8 PH CH AR AE M L [...] 00 10 5 CL 20 AR Ac OK 00 -2 -0 .0 IN 32 NO [...] 09 PH RI TA 1 AR CH OK MA AR N- CY D CA W FF 50 -3 25 -4 0 BU 00 05 11 02 60 30 CL 19 AR Ac IA 18 -0 -0 .0 IN 76 NO ti OP 50 5- 5- 00 IC 52 LD ve IO 41 20 20 N 56 09 09 PH RI HC 0 AR CH L MA AR SR CY D W 15 0 MG TA BL ET IA 68 09 10 01 40 10 CL 20 AR Ac OM 38 -0 -2 .0 IN 00 NO ti ET 20 3- 2- 00 IC 85 LD ve MAIN 04 20 20 ZI 10 09 09 PH RI NE 1 AR CH MA AR 25 CY D W MG TA BL ET 65 10 10 00 90 30 CL 20 CLAUDIA Ac 48 -0 -2 .0 IN 22 SC ti 30 7- 2- 00 IC 05 H ve 70 20 20 AN 21 09 09 PH TO 0 AR NI MA O CY 00 06 10 01 60 30 CL [...] 09 PH RI TA 1 AR CH OK MA AR N- CY D CA W FF 50 -3 25 -4 0 00 06 10 03 12 30 CL 19 AR Ac 59 -2 -0 0. IN 60 NO ti 15 3- 8- 00 IC 39 LD ve 38 20 20 0 20 09 09 PH RI 1 AR CH MA AR CY D W TR 65 10 10 05 18 23 [...] ET HI AN A BU 00 05 10 01 60 30 CL 19 AR Ac IA 18 -0 -0 .0 IN 76 NO ti OP 50 5- 8- 00 IC 52 LD ve IO 41 20 20 N 56 09 09 PH RI HC 0 AR CH L MA AR SR CY D W 15 0 MG TA BL ET 00 09 10 00 60 15 EA 14 AR Ac 40 -2 -[address] 48 NO ti 62 9- 8- 00 SI 35 LD ve 04 20 20 DE 11 09 09 RI 0 PH CH AR AR MA D CY W OF CY NT HI AN A TR 65 10 09 04 18 23 EA 99 AR Ac AM 16 -2 -[address] 93 NO ti AD 20 0- 0- 00 SI 35 LD ve OL 62 20 20 0 DE 71 08 09 RI HC 1 PH CH L AR AR 50 MA D CY W MG OF TA CY BL NT ET HI AN A 00 06 09 02 12 30 CL 19 AR Ac 59 -2 -1 0. IN 60 NO ti 15 3- 0- 00 IC 39 LD ve 38 20 20 0 20 09 09 PH RI 1 AR CH MA AR CY D W IA 68 09 09 00 40 10 CL 20 AR Ac OM 38 -0 -1 .0 IN 00 NO ti ET 20 3- 0- 00 IC 85 LD ve MAIN 04 20 20 ZI 10 09 09 PH RI NE 1 AR CH MA AR 25 CY D W MG TA BL ET BU 00 05 09 00 60 30 CL 19 AR Ac IA 18 -0 -1 .0 IN 76 NO ti OP 50 5- 0- 00 IC 52 LD ve IO 41 20 20 N 56 09 09 PH RI HC 0 AR CH L MA AR SR CY D W 15 0 MG TA BL ET 68 08 09 00 60 30 CL 19 AR Ac 18 -2 -1 .0 IN 95 NO ti 00 6- 0- 00 IC 75 LD ve 26 20 20 60 09 09 PH RI 1 AR CH MA AR CY D W 66 09 09 00 50 10 CL [...] 35 20 20 70 09 09 PH OK 5 AR CH MA AE CY L S 00 06 08 01 12 30 CL 19 AR Ac 59 -2 -1 0. IN 60 NO ti 15 3- 3- 00 IC 39 LD ve 38 20 20 0 20 09 09 PH RI 1 AR CH MA AR CY D W TO 68 06 08 00 60 30 CL 19 OC Ac PI 38 -1 -1 .0 IN 60 ON ti RA 20 9- 3- 00 IC 43 NE ve MA 13 20 20 LL TE 81 09 09 PH 4 AR HARSHIL 25 MA HN CY MG TA BL ET 65 04 08 01 90 30 CL [...] 8- 0- 00 IC 01 LD ve IA 00 20 20 ED 10 09 09 [...] D MG W CA PS UL E IA 68 07 07 00 40 10 CL 19 AR Ac OM 38 -1 -3 .0 IN 74 NO ti ET 20 8- 0- 00 IC 02 LD ve MAIN 04 20 20 ZI 10 09 09 PH RI NE 1 AR CH MA AR 25 CY D W MG TA BL ET BU 00 05 07 01 60 30 EA 12 AR Ac IA 18 -0 -[address] 62 NO ti OP 50 5- 0- 00 SI 43 LD ve IO 41 20 20 DE N 56 09 09 RI HC 0 PH CH L AR AR SR MA D CY W 15 0 OF MG CY NT TA HI BL AN ET A LO 37 07 07 00 30 30 CL 19 AR Ac RA 20 -1 -3 .0 IN 74 NO ti TA 50 8- 0- 00 IC 03 LD ve DI 34 20 20 NE 67 09 09 PH RI 2 AR CH 10 MA AR CY D MG W TA BL ET TR 65 10 07 03 18 23 EA 99 AR Ac AM 16 -2 -[address] 93 NO ti AD 20 0- 6- 00 SI 35 LD ve OL 62 20 20 0 DE 71 08 09 RI HC 1 PH CH L AR AR 50 MA D CY W MG OF TA CY BL NT ET HI AN A 65 04 07 00 90 30 CL 19 CLAUDIA Ac 48 -3 -0 .0 IN 60 SC ti 30 0- 2- 00 IC 45 H ve 70 20 20 AN 21 09 09 PH TO 0 AR NI MA O CY TO 60 06 07 00 60 30 [...] CY 1, 00 0 MC G/ ML 00 06 07 00 12 30 CL [...] 20 ZA 70 09 09 PH RI IA 6 AR CH IN MA AR E [...] BL NT ET HI AN A 00 04 06 01 60 30 [...] 8- 4- 00 SI 58 EY ve IA 02 20 20 DE ED 20 09 09 OK NI 7 PH CH SO AR AE LO MA L NE CY S 4 OF MG CY NT DO HI SE AN PK A 00 05 05 00 16 4 EA 12 CH Ac 59 -1 -[address] 74 ES ti 10 4- - 00 SI 37 TN ve 38 20 20 DE UT 50 09 09 1 PH OK AR CH MA AE CY L OF CY NT HI AN A HY 00 05 05 00 16 2 EA [address] 55 -1 -[address] 74 ES ti OX 50 4- 1- 00 SI 36 TN ve YZ 32 20 20 DE UT IN 30 09 09 E 4 PH OK PA AR CH M MA AE 25 CY L MG OF CY CA NT P HI AN A CE 00 05 05 00 40 10 EA 12 AR Ac PH 09 -1 -[address] 74 NO ti AL 33 4- 1- 00 SI 52 LD ve EX 14 20 20 DE IN 70 09 09 RI 5 PH CH 50 AR AR 0 MA D MG CY W CA OF PS CY UL NT E HI AN A BU 00 05 05 00 60 30 EA 12 AR Ac IA 18 -0 -[address] 62 NO ti OP 50 5- 1- 00 SI 43 LD ve IO 41 20 20 DE N 56 09 09 RI HC 0 PH CH L AR AR SR MA D CY W 15 0 OF MG CY NT TA HI BL AN ET A IA 00 04 05 00 60 15 EA 12 AR Ac OM 78 -3 -[address] 55 NO ti ET 11 0- 7- 00 SI 71 LD ve MAIN 83 20 20 DE ZI 01 09 09 RI NE 0 PH CH AR AR 25 MA D CY W MG OF TA CY BL NT ET HI AN A PE 54 04 05 [...] CY NT HI AN A TR 00 02 04 [...] AR M D #3 W 93 8 IA 00 03 04 01 40 10 RI [...] #3 W TA 93 BL 8 ET IA 00 02 03 00 40 10 RI 77 AR Ac OM 78 -2 -1 .0 TE 28 NO ti ET 11 7- 2- 00 66 LD ve MAIN 83 20 20 AI ZI 00 09 09 D RI NE 1 PH CH AR AR 25 M D #3 W MG 93 8 TA BL ET TR 00 02 03 01 10 [...] 09 PH RI TA 1 AR CH OK MA AR N- CY D CA W FF 50 -3 25 -4 0 00 12 01 00 40 6 RI 76 AR Ac 40 -2 -1 .0 TE 43 NO ti 60 9- 5- 00 59 LD ve 36 20 20 AI 30 08 09 D RI 1 PH CH AR AR M D #3 W 93 8 00 12 01 00 60 15 RI [...] 93 8 TA BL ET 00 12 12 00 60 15 CL [...] 08 08 RI TA 5 PH CH OK AR AR N- MA D CA CY [...] TA NT BL HI ET AN A ME 00 09 11 01 [...] CY BL NT ET HI AN A IA 00 10 11 00 40 10 EA [...] 00 60 30 EA 10 AR Ac IA 09 -2 -[address] 01 NO ti OX 30 4- 7- 00 SI 01 LD ve EN 14 20 20 DE 90 08 08 RI 50 1 PH CH 0 AR AR MG MA D CY W TA BL OF ET CY NT HI AN A IM 00 10 11 00 [...] ve TA 40 20 20 DE AN OK 71 08 08 TO N 2 PH NI B1 AR O 2 MA 1, CY 00 0 OF MC CY G NT TA HI B AN A TR 00 10 10 00 12 3 RI 75 GA Ac AM 09 -0 -2 .0 TE 25 IN ti AD 30 4- 3- 00 44 EY ve OL 05 20 20 AI 80 08 08 D OK HC 1 PH CH L AR AE 50 M L #3 S MG 93 8 TA BL ET CI 00 10 10 00 14 7 RI 75 GA Ac IA 17 -0 -2 .0 TE 25 IN ti OF 25 4- 3- 00 42 EY ve LO 31 20 20 AI XA 26 08 08 D OK CI 0 PH CH N AR AE HC M L L #3 S 50 93 0 8 MG TA B AM 00 10 10 00 30 10 EA 99 No Ac OX 78 -0 -[address] 77 t ti IC 12 7- 3- 00 SI 48 Av ve IL 61 20 20 DE ai LI 30 08 08 la N 5 PH bl 50 AR e 0 MA MG CY CA OF PS CY UL NT E HI AN A ME 00 10 10 00 21 6 EA 99 No Ac TH 78 -0 -[address] 77 t ti YL 15 7- 3- 00 SI 49 Av ve IA 02 20 20 DE ai ED 20 08 08 la NI 7 PH bl SO AR e LO MA NE CY 4 OF MG CY NT DO HI SE AN PK A 00 10 10 00 60 15 EA 99 No Ac 60 -0 -[address] 77 t ti 35 7- 3- 00 SI 50 Av ve 46 20 20 DE ai 82 08 08 la 8 PH bl AR e MA CY OF CY NT HI AN A ME 00 09 10 00 12 [...] NT OF CY NT HI AN A IA 10 07 10 02 60 15 EA 98 No Ac OM 70 -1 -[address] 75 t ti ET 20 7- 9- 00 SI 92 Av ve MAIN 00 20 20 DE ai ZI 31 08 08 la NE 0 PH bl AR e 25 MA CY MG OF TA CY BL NT ET HI AN A BU 00 09 10 00 60 15 EA 99 No Ac TA 59 -3 -[address] 67 t ti LB 13 0- 9- 00 SI 76 Av ve -A 36 20 20 DE ai CE 90 08 08 la TA 5 PH bl OK AR e N- MA CA CY FF OF 50 CY -3 NT 25 HI -4 AN 0 A PA 60 09 10 00 30 30 EA 99 No Ac RO 50 -2 -[address] 57 t ti XE 50 2- 9- 00 SI 00 Av ve TI 08 20 20 DE ai NE 30 08 08 la 1 PH bl HC AR e L MA 20 CY MG OF CY TA NT BL HI ET AN A 00 09 09 00 60 15 EA 99 No Ac 60 -0 -[address] 36 t ti 35 5- 1- 00 SI 39 Av ve 46 20 20 DE ai 82 08 08 la 8 PH bl AR e MA CY OF CY NT HI AN A 65 05 09 02 90 30 EA 97 No Ac 48 -0 -[address] 92 t ti 30 8- 1 00 SI 22 Av ve 70 20 20 DE ai 21 08 08 la 0 PH bl AR e MA CY OF CY NT HI AN A IA 00 09 09 00 70 17 EA 99 No Ac ED 60 -0 -[address] 30 t ti NI 35 2- 1- 00 SI 99 Av ve SO 33 20 20 DE ai NE 82 08 08 la 1 PH bl 10 AR e MA MG CY TA OF BL CY ET NT HI AN A TR 60 08 09 00 10 12 EA 99 No Ac AM 50 -2 -[address] 24 t ti AD 50 7- - 00 SI 60 Av ve OL 17 20 20 0 DE ai 10 08 08 la HC 8 PH bl L AR e 50 MA CY MG OF TA CY BL NT ET HI AN A AM 00 09 09 00 30 10 EA 99 No Ac OX 78 -0 -[address] 36 t ti IC 12 5- 00 SI 37 Av ve IL 61 20 20 DE ai LI 30 08 08 la N 5 PH bl 50 AR e 0 MA MG CY CA OF PS CY UL NT E HI AN A 60 09 09 00 24 6 EA 99 No Ac 25 -0 -[address] 36 t ti 80 5- - 00 SI 38 Av ve 23 20 20 0 DE ai 91 08 08 la 6 PH bl AR e MA CY OF CY NT HI AN A IA 00 07 09 01 60 15 EA 98 No Ac OM 78 -1 -[address] 75 t ti ET 11 7 SI 92 Av ve MAIN 83 20 [...] AR RE M Y #3 93 8 IA 00 07 08 00 60 15 EA 98 No Ac OM 78 -1 -[address] 75 t ti ET 11 7- 00 SI 92 Av ve MAIN 83 20 20 DE ai ZI 01 08 08 la NE 0 PH bl AR e 25 MA CY MG OF TA CY BL NT ET HI AN A SM 49 05 08 01 30 30 EA 97 No Ac 34 -0 -[address] 92 t ti 80 8- 1- 00 SI 21 Av ve TA 40 20 20 DE ai OK 71 08 08 la N 2 PH bl B1 AR e 2 MA 1, CY 00 0 OF MC CY G NT TA HI B AN A TR 60 07 08 01 40 7 EA 98 No Ac AM 50 -0 -[address] 58 t ti AD 50 2- 1- 00 SI 97 Av ve OL 17 20 20 DE ai 10 08 08 la HC 8 PH bl L AR e 50 MA CY MG OF TA CY BL NT ET HI AN A PE 54 01 08 02 48 30 EA 96 No Ac NT 09 -1 -[address] 38 t ti 20 6- - 00 SI 57 Av ve A 18 20 20 0 DE ai 25 98 08 08 la 0 1 PH bl MG AR e MA CA CY PS UL OF E CY NT HI AN A 00 07 08 00 60 15 EA 98 No Ac 59 -1 -[address] 75 t ti 10 7- SI 91 Av ve 34 20 20 DE ai 90 08 08 la 1 PH bl AR e MA CY OF CY NT HI AN A 65 05 07 01 90 30 EA 97 No Ac 48 -0 -[address] 92 t ti 30 8- 7 SI 22 Av ve 70 20 20 DE ai 21 08 08 la 0 PH bl AR e MA CY OF CY NT HI AN A IA 00 02 07 04 60 15 EA 96 No Ac OM 78 -1 -[address] 85 t ti ET 11 8 7 SI 56 Av ve MAIN 83 20 20 DE ai ZI 01 08 08 la NE 0 PH bl AR e 25 MA CY MG OF TA CY BL NT ET HI AN A TR 60 07 07 00 [...] 0- 3- 00 SI 32 Av ve IA 02 20 20 DE ai ED 20 [...] 20 AI IN 70 08 08 D OK 1 PH CH 50 AR AE 0 M L MG #3 S 93 CA 8 PS UL E 00 06 06 00 8. 2 EA 98 No Ac 59 -0 -[address] 27 t ti 10 6- 2- 0 SI 57 Av ve 34 20 20 DE ai 90 08 08 la 1 PH bl AR e MA CY OF CY NT HI AN A IA 00 02 06 03 60 15 EA 96 No Ac OM 78 -1 -[address] 85 t ti ET 11 8- 2- 00 SI 56 Av ve MAIN 83 20 20 DE ai ZI 01 08 08 la NE 0 PH bl AR e 25 MA CY MG OF TA CY BL NT ET HI AN A SM 49 05 06 00 30 30 EA 97 No Ac 34 -0 -[address] 92 t ti 80 8- 2- 00 SI 21 Av ve TA 40 20 20 DE ai OK 71 08 08 la N 2 PH bl B1 AR e 2 MA 1, CY 00 0 OF MC CY G NT TA HI B AN A 65 05 05 00 90 30 EA 97 No Ac 48 -0 -[address] 92 t ti 30 8- 2- 00 SI 22 Av ve 70 20 20 DE ai 21 08 08 la 0 PH bl AR e MA CY OF CY NT HI AN A IA 00 02 05 02 60 15 EA 96 No Ac OM 78 -1 -[address] 85 t ti ET 11 8 2 00 SI 56 Av ve MAIN 83 [...] ve TA 40 20 20 DE ai OK 71 08 08 la N 2 PH [...] CY NT HI AN A ME 00 04 04 00 21 6 RI 72 No Ac TH 60 -1 -2 .0 TE 89 t ti YL 34 4- 4- 00 86 Av ve IA 59 20 20 AI ai ED 31 08 08 D la NI 5 PH bl SO AR e LO M NE #3 4 93 8 MG DO SE PK 00 04 04 00 8. 2 RI 72 No Ac 60 -1 -2 00 TE 89 t ti 35 4- 4- 0 84 Av ve 46 20 20 AI ai 82 08 08 D la 8 PH bl AR e M #3 93 8 CI 00 04 04 00 14 7 RI 72 No Ac IA 17 -1 -2 .0 TE 89 t ti OF 25 4- 4- 00 85 Av ve LO 31 20 20 AI ai XA 26 08 08 D la CI 0 PH bl N AR e HC M L #3 50 93 0 8 MG TA B 65 02 04 01 90 30 EA 96 No Ac 48 -1 -[address] 85 t ti 30 8- 0- 00 SI 79 Av ve 70 20 20 DE ai 21 08 08 la 0 PH bl AR e MA CY OF CY NT HI AN A IA 00 02 04 01 60 15 EA 96 No Ac OM 78 -1 -[address] 85 t ti ET 11 8- 0- 00 SI 56 Av ve MAIN 83 20 20 DE ai ZI 01 08 08 la NE 0 PH bl AR e 25 MA CY MG OF TA CY BL NT ET HI AN A 58 03 04 01 [...] OF E CY NT HI AN A 58 03 04 00 60 30 EA 97 No Ac 17 -0 -[address] 09 t ti 70 5- 7- 00 SI 93 Av ve 23 20 20 DE ai 70 08 08 la 4 PH bl AR e MA CY OF CY NT HI AN A AC 00 02 04 [...] 08 08 la TA 8 PH bl OK AR e N- MA CA CY FF OF 50 CY -3 NT 25 HI -4 AN 0 A 65 02 03 00 90 30 EA 96 No Ac 48 -1 -[address] 85 t ti 30 8- 6- 00 SI 79 Av ve 70 20 20 DE ai 21 08 08 la 0 PH bl AR e MA CY OF CY NT HI AN A LI 60 02 03 00 59 1 RI 71 No Ac ND 43 -0 -2 .0 TE 85 t ti AN 20 5- 6- 00 95 Av ve E 83 20 20 AI ai 1% 46 08 08 D la 0 PH bl SH AR e AM M PO #3 O 93 8 ME 00 02 03 00 21 6 EA 96 No Ac TH 78 -1 -[address] 85 t ti YL 15 8- 6- 00 SI 54 Av ve IA 02 20 20 DE ai ED 20 [...] CY BL NT ET HI AN A IA 00 02 03 00 60 15 EA [...] ve TA 40 20 20 DE ai OK 71 08 08 la N 2 PH bl B1 AR e 2 MA 1, CY 00 0 OF MC CY G NT TA HI B AN A 00 01 03 00 10 [...] HI AN A SM 49 01 03 00 30 30 EA 96 No Ac 34 -1 -[address] 38 t ti 80 6- 5- 00 SI 58 Av ve TA 40 20 20 DE ai OK 71 08 08 la N 2 PH bl B1 AR e 2 MA 1, CY 00 0 OF MC CY G NT TA HI B AN A NI 00 01 03 00 20 10 RI 71 No Ac TR 37 -1 -2 .0 TE 46 t ti OF 83 2- 5- 00 82 Av ve UR 42 20 20 AI ai AN 20 08 08 D la TO 1 PH bl IN AR e M MO #3 NO 93 -M 8 CR 10 0 MG Procedures Procedure DOS Code Location Performer Comment RADEX ABD 65675 RADIOLOGY [facility] COMPL 7 AQT ABD ASSOCIATE W/S/E/D S OF [place] [address] [place] [address] RADIOLOGY TOM ABDOMEN & 7 PELVIS ASSOCIATE W/[place] [address] RADIOLOGY JIMENEZ ABDOMEN & 7 PELVIS ASSOCIATE W/[place] [address] RADIOLOGY TYRELL ABDOMEN & 7 PELVIS ASSOCIATE W/CONTRAS S OF NOTH T MATERIAL ALPHA-1-A 77889 [facility] NTITRYPSI 7 [facility] [place] N TOTAL FT FT K[place] COLLECTIO 63722 [facility] N VENOUS 7 [facility] BLOOD FT [place] [address] [facility] IMAGING 7 [facility] CT ATTENUATI HEALTHCAR HEALTHCAR ON SKULL E EDGE E EDGE BASE MID-THIGH ADMN SET A7003 YOUR YOUR SM VOL 7 PHARMACY PHARMACY [facility] PNEUMAT NEBULIZR DISPBL TRANSITIO 99297 [facility] 7 [place] MANAGE SRVC 7 PHYSICIAN DAY S DISCHARGE SBSQ 29779 [facility] 7 [facility]/DAY 25 PHYSICIAN MINUTES S HOSPITAL 60967 [facility] DISCHARGE 7 [facility] MANAGEMEN PHYSICIAN T > 30 S MIN SBSQ 57341 [facility] 7 [facility]/DAY 25 PHYSICIAN MINUTES S SBSQ [address]/DAY 35 PHYSICIAN MINUTES S SBSQ [address]/DAY 35 PHYSICIAN MINUTES S CRITICAL 64496 [facility] 7 SHARRON ILL/INJUR ED PHYSICIAN PATIENT S INIT 30-74 MIN RADIOLOGI 39828 RADIOLOGY [place] 7 EXAMINATI ASSOCIATE ON CHEST S OF NOTH [place] FRONTAL CRITICAL 29091 [facility] 7 SHARRON ILL/INJUR ED PHYSICIAN PATIENT S INIT 30-[address] MIN [address]Q [id number]/DAY 35 PHYSICIAN MINUTES S SBSQ [address]/DAY 35 PHYSICIAN MINUTES S CRITICAL 70580 [facility] 7 SHARRON ILL/INJUR ED PHYSICIAN PATIENT S INIT 30-74 MIN CRITICAL 80732 [facility] 7 [place] ILL/INJUR ED PHYSICIAN PATIENT S INIT 30-74 MIN RADIOLOGI 19094 RADIOLOGY GELY C 7 EXAMINATI ASSOCIATE ON [place] [address] RADIOLOGY [place] ANGIOGRAP 7 III HY CHEST ASSOCIATE W/CONTRAS S OF NOTH T/NONCONT RAST ECG [address] [facility] ROUTINE 7 SH[place]ON ECG W/LEAST PHYSICIAN 12 LDS S EKG I&R ONLY [facility] 03-17-[address] [facility] MYOCUT[facility] 7 [place] OUS/FASCI OCUTANEOU PHYSICIAN S FLAP S TRUNK ANES LWR 63749 ANESTHESI CHASE ABD 7 A GROUP VENTRAL & PRACTICE INCISIONA L HERNIA REPAIR RPR RECRT [address]16 [facility] 7 [place] INCAL/VNT HERNIA PHYSICIAN REDUCIBLE S IMPLANT 43117 [facility] OPN 7 [place] HERNIA RPR/DEBRI PHYSICIAN S[place] CLOSURE NJX 01672 ANESTHESI WEN DX/THER 7 A GROUP SBST PRACTICE INTRLMNR CRV/THRC W/[place] L[place] [address] [facility] 7 [facility] [place] [address] [address] [facility] SURG 7 [facility] GROSS&ISAAC ROSCOPIC EXAM COLONOSCO 64982 [facility] PY 7 [place] W/BIOPSY SINGLE/MU PHYSICIAN LTIPLE S EGD [address]70 [facility] TRANSORAL 7 [place] BIOPSY SINGLE/MU PHYSICIAN LTIPLE S ANES 72627 ANESTHESI RANDY LOWER 7 A GROUP INTESTINE PRACTICE ENDOSCOPY DISTAL DUODENUM C-REACTIV 84641 [facility] E PROTEIN 6 [facility] CTR 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 [address] RADIOLOGY K[place] ABDOMEN & 6 KERLINE PELVIS ASSOCIATE W/CONTRAS S OF NOTH T MATERIAL ADMN SET A7003 YOUR YOUR SM VOL 6 PHARMACY PHARMACY [facility] [place] [address] [facility] INFUSION 6 [facility] THERAPY/P INC INC ROPHYLAXI S /DX 1ST TO 1 HR COMPREHEN 84647 [facility] SIVE 6 [facility] METABOLIC INC INC PANEL C-REACTIV 53437 [facility] E PROTEIN 6 [facility] INC INC BLOOD 82976 [facility]ARC[facility] COUNT 6 [facility] COMPLETE INC INC AUTO&AUTO DIFRNTL WBC RADIOLOGI 70946 [place] [facility] EXAM 6 MEDICAL CHEST 2 IMAGING VIEWS ASS FRONTAL&L ATERAL COMPREHEN 88655 [facility] SIVE 6 [facility] METABOLIC INC INC PANEL THERAPEUT 95778 [facility] IC 6 [facility] INJECTION INC INC IV PUSH EACH NEW DRUG THER 75240 [facility] PROPH/DX 6 [facility] NJX IV INC INC PUSH SINGLE/1S T SBST/DRUG URNLS DIP 79189 [facility]IA 6 [facility] STICK/TAB INC [place] [address] [facility] GARCIA ABDOMEN & 6 [facility] PELVIS INC INC W/O CONTRAST MATERIAL BLOOD 24137 [facility] COUNT 6 [facility] COMPLETE INC INC AUTO&AUTO DIFRNTL WBC CULTURE 49669 [facility] BACTERIAL 6 [facility] INC INC QUANTTATI VE COLONY COUNT URINE RADEX 73858 [facility] [facility] SPINE 6 MEDICAL SANDRA LUMBOSACR IMAGING AL ASS MINIMUM 4 VIEWS COMPREHEN 33216 [facility] GARCIA SIVE 6 [facility] METABOLIC INC INC PANEL C-REACTIV 66584 [facility] E PROTEIN 6 [facility] INC INC CHEMOTX 90715 [facility] GARCIA ADMN IV 6 [facility] NFS TQ UP INC INC 1 HR 1/ SBST/DRUG BLOOD 92402 [facility]IA COUNT 6 [facility] COMPLETE INC INC AUTO&AUTO DIFRNTL WBC INJECTION J3380 [facility] GARCIA 6 [facility] VEDOL[facility] INC AB 1 MG THERAPEUT 98394 [facility] IC 6 [facility] PROPHYLAC INC INC TIC/DX INJECTION SUBQ/IM AMBULANCE A0429 [facility] SERVICE 6 [facility]BULANCE AMBULANCE BLS SERVICE SERVICE EMERGENCY TRANSPORT GROUND A0425 [facility] MILEAGE 6 AMBULANCE AMBULANCE PER SERVICE SERVICE STATUTE MILE THERAPEUT 76056 [facility] SHAUN IC 6 PHYSICIAN STONE PROPHYLAC S GROUP ZUHAIR DUVAL TIC/DX INJECTION SUBQ/IM ADMN SET A7003 YOUR YOUR SM VOL 6 [facility]ARMACY PH[facility] PNEUMAT NEBULIZR DISPBL THERAPEUT 34897 [facility] IC 6 PHYSICIAN PHYSICIAN PROPHYLAC S GROUP S GROUP TIC/DX INJECTION SUBQ/IM COMPREHEN 43941 [facility] SIVE 6 [facility] INC PANEL INJECTION J3380 [facility] RADHA 6 [facility] VEDOLIZUM INC INC AB 1 MG BLOOD 38088 [facility] COUNT 6 [facility] COMPLETE INC INC AUTO&AUTO DIFRNTL WBC [place] 09084 [facility] GARCIA ADMN IV 6 [facility] NFS TQ UP INC INC 1 HR / SBST/DRUG C-REACTIV 44354 [facility] GARCIA E PROTEIN 6 [facility] INC INC ADMN SET A7003 YOUR YOUR SM VOL 6 [facility]ARMACY PH[facility] PNEUMAT NEBULIZR DISPBL [place] ABD [address] [place] [facility] 6 MEDICAL AQT ABD IMAGING W/S/E/D ASS VIEWS 1 VIEW BLOOD 19936 [facility]HA COUNT 6 [facility] COMPLETE INC INC AUTO&AUTO DIFRNTL WBC [place] 11345 [facility] GARCIA ADMN IV 6 [facility] NFS TQ UP INC INC 1 HR / SBST/DRUG INJECTION J3380 [facility] RADHA 6 [facility] VEDOL[facility] INC INC AB 1 MG C-REACTIV 51488 [facility] GARCIA E PROTEIN 6 [facility] INC INC COMPREHEN 39797 [facility] SIVE 6 [facility] INC PANEL COMPREHEN 92365 [facility] G[facility] SIVE 6 [facility] [place] [address] [facility] GARCIA INFUSION 6 [facility] THERAPY/P INC INC ROPHYLAXI S /DX 1ST TO 1 HR C-REACTIV 06537 [facility] GARCIA E PROTEIN 6 [facility] INC INC INJECTION J3380 [facility] RADHA 6 [facility] VEDOL[facility]UM INC INC AB 1 MG BLOOD 17459 [facility] GARCIA COUNT 6 [facility] COMPLETE INC INC AUTO&AUTO DIFRNTL WBC [place] 14052 [facility] GARCIA ADMN IV 5 [facility] NFS TQ UP INC INC 1 HR SBST/DRUG BLOOD 66536 [facility] GARCIA COUNT 5 [facility] COMPLETE INC INC AUTO&AUTO DIFRNTL WBC INJECTION C9026 [facility] GARCIA 5 [facility] VEDOLIZUM INC INC AB 1 MG C-REACTIV 02618 RAD[facility] GARCIA E PROTEIN 5 [facility] INC INC COMPREHEN 67392 [facility]IA SIVE 5 [facility] INC INC PANEL COMPREHEN 69037 [facility] G[facility] SIVE 5 [facility] INC PANEL COLLECTIO 16338 [facility] N VENOUS 5 [facility] BLOOD INC INC VENIPUNCT URE 25 85868 [facility] GARC[facility] HYDROXY 5 [facility] INCLUDES INC INC FRACTIONS IF PERFORMED CYANOCOBA 97616 [facility] JAKOB 5 [facility] VITAMIN INC INC B-12 C-REACTIV 17164 [facility] G[facility] INC PROTHROMB 56827 [facility] IN TIME 5 [facility] TB CELL 20921 RAD[facility] GARC[facility] MEDIATED 5 [facility] ANTIGN INC INC RESPNSE GAMMA INTERFERO N BLOOD 03006 [facility] GARCIA COUNT 5 [facility] COMPLETE INC INC AUTO&AUTO DIFRNTL WBC RADEX 71432 RADHA GARCIA SPINE 5 [facility] CERVICAL INC INC 4 OR 5 VIEWS COMPREHEN 80532 RADHA GARCIA SIVE 5 [facility] METABOLIC INC INC PANEL NATRIURET 36762 RAD[facility] GARCIA IC 5 [facility] PEPTIDE INC INC PRESSURIZ 61456 RADHA GARCIA ED/NONPRE 5 [facility] SSURIZED INC INC INHALATIO N TREATMENT BLOOD 85738 RADHA RADHA COUNT 5 [facility] COMPLETE INC INC AUTO&[place] [address] RADHA RADHA TROPONIN 5 [facility] QUANTITAT INC INC ANIYAH ECG 27602 TAMIKA LUNDBERG ROUTINE 5 REJI REJI ECG W/LEAST 12 LDS I&R ONLY ECG 19679 RADHA RADHA ROUTINE 5 [facility] ECG INC INC W/LEAST 12 LDS TRCG ONLY W/O I&R RADIOLOGI 73919 RADHA GARCIA C 5 [facility] EXAMINATI INC INC ON CHEST SINGLE VIEW FRONTAL ADMN SET A7003 YOUR YOUR SM VOL 5 [facility] PNEUMAT NEBULIZR DISPBL NEBULIZER E0570 WOLF BLOOM WITH 5 HOME HOME COMPRESSO MEDICAL MEDICAL R EQUIPME EQUIPME THERAPEUT 50555 [facility] IC 5 PHYSICIAN ISAAC PROPHYLAC S GROUP TIC/DX INJECTION SUBQ/IM PRESSURIZ 84409 [facility] ED/NONPRE 5 PHYSICIAN ISAAC SSURIZED S GROUP INHALATIO N TREATMENT INJECTION J1040 [facility] 5 PHYSICIAN ISAAC METHYLPRE S GROUP DNISOLONE ACETATE 80 MG RADIOLOGI 73978 [facility] C EXAM 5 MEDICAL CHEST 2 IMAGING VIEWS ASS FRONTAL&L ATERAL EGD 96233 RADHA GARCIA TRANSORAL 5 [facility] BIOPSY INC INC SINGLE/MU LTIPLE COLONOSCO 94911 ANALI LOCO PY 5 MEDICAL KERLINE W/BIOPSY SERV SINGLE/MU FOUNDATIO LTIPLE N UNCLASSIF J3490 RADHA GARCIA IED DRUGS 5 [place] [address] [facility], SURG 5 [facility] PATHOLOGY GROSS&ISAAC ROSCOPIC EXAM RADIOLOGI 17947 [facility] C EXAM 5 MEDICAL SANDRA CHEST 2 IMAGING VIEWS ASS FRONTAL&L ATERAL COLLECTIO 18368 [facility] N VENOUS 5 PHYSICIAN ISAAC BLOOD S GROUP VENIPUNCT URE COMPREHEN 20601 RADHA RADHA SIVE 5 [facility] METABOLIC INC INC PANEL 25 29684 RADHA GARCIA HYDROXY 5 [facility] INCLUDES INC INC FRACTIONS IF PERFORMED THERAPEUT 43823 [facility] IC 5 PHYSICIAN ISAAC PROPHYLAC S GROUP TIC/DX INJECTION SUBQ/[place] [address] RADHA GARCIA THYROXINE 5 [facility] TOTAL INC INC MICROSOMA 07944 RADHA THOMASON L 5 [facility] [place] [address] RADHA GARCIA THYROID 5 [facility] STIMULAT[place] [address] RADHA GARCIA TRIIODOTH 5 [facility] YRONINE INC INC T3 FREE RADIOLOGI 88935 [facility] C EXAM 5 MEDICAL SANDRA CHEST 2 IMAGING VIEWS ASS FRONTAL&L ATERAL COLLECTIO 07156 RADHA GARCIA N VENOUS 5 [facility] BLOOD INC INC VENIPUNCT URE COMPREHEN 90713 RADHA GARCIA SIVE 5 [facility] [address] RADHA GARCIA IRON 5 [facility] INC INC IRON 35656 RADHA GARCIA BINDING 5 [facility] CAPACITY INC INC CYANOCOBA 59063 RADHA GARCIA JAKOB 5 [facility] VITAMIN INC INC B-12 25 43916 RADHA GARCIA HYDROXY 5 [facility] INCLUDES INC INC FRACTIONS IF PERFORMED BLOOD 80914 RADHA GARCIA COUNT 5 [facility] COMPLETE INC INC AUTO&AUTO DIFRNTL WBC C-REACTIV 75726 RADHA GARCIA E PROTEIN 5 [facility] INC INC RADEX 79781 [place] ABDOMEN 1 5 MEDICAL ROM IMAGING ANTEROPOS ASS TERIOR VIEW RADEX 59679 RADHA GARCIA ABDOMEN 5 [facility] COMPL INC INC W/DCBTS&/ ERC VIEWS OPHTH 38547 SCIFRES SCIFRES MEDICAL 5 ANG ANG XM&EVAL COMPRE NEW PT 1/> [place] [address] RADHA GARCIA FREE 5 [facility] [place] [address] RADHA GARCIA THYROID 5 [facility] STIMULATI INC INC NG HORMONE TSH BLOOD 24704 RADHA GARCIA COUNT 5 [facility] COMPLETE INC INC AUTO&AUTO DIFRNTL WBC 25 52281 RADHA GARCIA HYDROXY 5 [facility] INCLUDES INC INC FRACTIONS IF PERFORMED COMPREHEN 60950 RADHA GARCIA SIVE 5 [facility] METABOLIC INC INC PANEL RADIOLOGI 76521 RADHA GARCIA C EXAM 4 [facility] CHEST 2 INC INC VIEWS FRONTAL&L ATERAL IAADI 03334 RADHA GARCIA INFLUENZA 4 [facility] B VIRUS INC INC IAADI 16595 RADHA GARCIA INFFLUENZ 4 [facility] A A VIRUS INC INC HOSPITAL 51881 [facility] DISCHARGE 4 PHYSICIAN ISAAC DAY S GROUP MANAGEMEN T 30 MIN/< SBSQ 77049 [facility] 4 PHYSICIAN ISAAC CARE/DAY S GROUP 15 MINUTES INITIAL 94258 [facility] 4 PHYSICIAN ISAAC CARE/DAY S GROUP 50 MINUTES ECG 03614 TASHIA LAO JR ROUTINE 4 DWI DWI ECG W/LEAST 12 LDS I&R ONLY RADIOLOGI 65178 [facility] 4 MEDICAL SANDRA EXAMINATI IMAGING ON CHEST ASS SINGLE VIEW FRONTAL CT THORAX 13330 [place] [facility] 4 MEDICAL SANDR[place] [address] RADHA GARCIA INFUSION 4 [facility] THERAPY/P INC INC ROPHYLAXI S /DX 1ST TO 1 HR THERAPEUT 31755 RADHA GARCIA IC 4 [facility] INJECTION INC INC IV PUSH EACH NEW DRUG COMPREHEN 75248 RADHA GARCIA SIVE 4 [facility] METABOLIC INC INC PANEL BLOOD 13801 RADHA GARCIA COUNT 4 [facility] COMPLETE INC INC AUTO&AUTO DIFRNTL WBC RADEX ABD 56736 [place] [facility] COMPL 4 MEDICAL ROM AQT ABD IMAGING W/S/E/D ASS VIEWS 1 VIEW CH BLOOD 10253 [facility] COUNT 4 Y Y COMPLETE [facility] AUTO&AUTO DIFRNTL WBC C-REACTIV 76221 [facility] E PROTEIN 4 Y Y HOSPITAL [facility]OSPITAL TB CELL 64135 [facility] MEDIATED 4 Y Y ANTIGN [facility] RESPNSE GAMMA INTERFERO N COMPREHEN 31795 [facility] SIVE 4 Y Y METABOLIC [facility] PANEL COLLECTIO 40197 [facility] N VENOUS 4 Y Y BLOOD [facility] VENIPUNCT URE NZYM 05952 [facility] ACTIV BLD 4 Y Y [facility] CELLS/TIS S NONRADACT SUBSTRATE EA 25 22032 [facility] HYDROXY 4 Y Y INCLUDES HOSPITAL HOSPITAL FRACTIONS IF PERFORMED CYANOCOBA 86961 [facility] JAKOB 4 Y Y VITAMIN [facility] B-12 [place] [address] [facility] FERRITIN 4 Y Y [facility] IRON 25001 [facility] BINDING 4 Y Y CAPACITY [facility] RADIOLOGI 25241 [place] [facility] C EXAM 4 MEDICAL ROM CHEST 2 IMAGING VIEWS ASS FRONTAL&[place] [address] RADHA GARCIA TRACT UPR 4 [facility] W/SM INT INC INC W/[place] [address] [facility] W/WO 4 MEDICAL SANDRA GLUCOSE IMAGING W/SM ASS INTEST FOLLW-THR U BASIC 53272 RADHA GARCIA METABOLIC 4 [facility] PANEL INC INC CALCIUM TOTAL RADEX 57916 [facility] ABDOMEN 4 MEDICAL ROM COMPL IMAGING W/DCBTS&/ [place] [address] [facility] ABDOMEN & 4 MEDICAL ROM PELVIS IMAGING W/[place] [address] [facility] ABDOMEN & 4 MEDICAL ROM PELVIS IMAGING W/O ASS CONTRAST MATERIAL GROUND A0425 [facility] AM[facility]ULANCE PER SERVICE SERVICE STATUTE MILE AMBULANCE A0429 [facility] SERVICE 4 AMBULANCE AMBULANCE BLS SERVICE SERVICE EMERGENCY TRANSPORT RADEX 18067 [place] [facility] SPINE 4 MEDICAL SANDRA LUMBOSACR IMAGING AL ASS MINIMUM 4 VIEWS RADEX ABD 81068 [facility] COMPL 4 ROM ROM AQT ABD W/S/E/D VIEWS 1 VIEW CH ECG 78583 MCKEMIE MCKEMIE ROUTINE 3 JR JUAN ANTONIO JR JUAN ANTONIO ECG W/LEAST 12 LDS I&R ONLY RADEX 35365 [facility] ABDOMEN 1 3 ROM ROM ANTEROPOS TERIOR VIEW ANES 89134 VILLAR VILLAR INTRAPERI 3 CELESTINE CELESTINE TONEAL UPPER ABDOMEN W/LAPS NOS REMOVAL 39341 BOTTIGGI BOTTIGGI PERITONEA 3 ANT ANT [place] [address] MORRISON MORRISON SURG 3 [facility] PATHOLOGY GROSS EXAMINATI ON ONLY CUL BACT 76995 RADHA GARCIA XCPT 3 [facility] URINE INC INC BLOOD/STO OL AEROBIC ISOL CUL BACT 80735 RADHA GARCIA AEROBIC 3 [facility] ADDL INC INC METHS DEFINITIV E EA ISOL BLOOD 90498 RADHA GARCIA COUNT 3 [facility] COMPLETE INC INC AUTO&AUTO DIFRNTL WBC SUSCEPTIB 74340 RADHA GARCIA LTY STDY 3 [facility] ANTIMICRB INC INC IAL MICRO/AGA R DILUTJ BASIC 72467 RADHA GARCIA METABOLIC 3 [facility] [place] [address] RADHA GARCIA AMYLASE 3 [facility] INC INC COMPREHEN 16427 RADHA GARCIA SIVE 3 [facility] METABOLIC INC INC PANEL URNLS DIP 89245 RADHA GARCIA 3 [facility] STICK/TAB INC INC [place] [address] RADHA GARCIA LIPASE 3 [facility] INC INC BLOOD 06174 RADHA GARCIA COUNT 3 [facility] COMPLETE INC INC AUTO&AUTO DIFRNTL WBC RADIOLOGI 52494 [facility] C EXAM 3 ROM ROM CHEST 2 VIEWS FRONTAL&L ATERAL RADIOLOGI 60986 [facility] C EXAM 3 ROM ROM CHEST 2 VIEWS FRONTAL&L ATERAL RADIOLOGI 26702 [facility] C 3 ROM ROM EXAMINATI [place] [address] LEON ISAAC LEON ISAAC SURG 3 PATHOLOGY GROSS&ISAAC ROSCOPIC EXAM OPEN AND 4572 RADHA GARCIA OTHER 3 [facility] CECECTOMY INC INC ANES 28359 [facility] INTRAPERI 3 ANESTH TONEAL OF THE UPPER BLUE ABDOMEN W/LAPS NOS COLECTOMY 91436 WENDY NGUYEN PRTL 3 BOONE BOONE W/RMVL TERMINAL ILEUM & ILEOCOLOS COMPREHEN 37376 RADHA GARCIA SIVE 3 [facility] METABOLIC INC INC PANEL BLOOD 91881 RADHA GARCIA COUNT 3 [facility] COMPLETE INC INC AUTO&AUTO DIFRNTL WBC BLOOD 69682 RADHA GARCIA COUNT 3 [facility] COMPLETE INC INC AUTO&AUTO DIFRNTL WBC RADEX ABD 06255 RADHA GARCIA COMPL 3 [facility] AQT ABD INC INC W/S/E/D VIEWS 1 VIEW CH IAADI 81677 RADHA GARCIA INFLUENZA 3 [facility] B VIRUS INC INC IAADI 81099 RADHA GARCIA INFFLUENZ 3 [facility] A A VIRUS INC INC COMPREHEN 43476 RADHA GARCIA SIVE 3 [facility] METABOLIC INC INC PANEL THERAPEUT 58276 RADHA GARCIA IC 3 [facility] INJECTION INC INC IV PUSH EACH NEW DRUG URNLS DIP 80217 RADHA GARCIA 3 [facility] STICK/TAB INC INC LET REAGENT AUTO MICROSCOP Y THER 92888 RADHA GARCIA PROPH/DX 3 [facility] NJX IV INC INC PUSH SINGLE/1S T SBST/[place] [address] RADHA GARCIA LIPASE 3 [facility] INC INC [place] OF 11-30-201 55784 RADHA GARCIA LIPASE 2 [facility] INC INC RADEX 89882 RADHA GARCIA ABDOMEN 1 2 [facility] INC INC ANTEROPOS TERIOR VIEW URNLS DIP 38859 RADHA GARCIA 2 [facility] STICK/TAB INC [place] [address] RADHA GARCIA ABDOMEN & 2 [facility] PELVIS INC INC W/CONTRAS T MATERIAL THERAPEUT 83459 RADHA GARCIA IC 2 [facility] INJECTION INC [place] [address] RADHA GARCIA INFUSION 2 [facility] THERAPY/P INC INC ROPHYLAXI S /DX 1ST TO 1 HR COMPREHEN 12562 RADHA GARCIA SIVE 2 [facility] [place] [address] RADHA GARCIA AMYLASE 2 [facility] INC INC LOCM Q9967 RADHA GARCIA [phone] [facility] MG/ML INC INC IODINE CONCENTRA TION PER ML 3D 46212 RADHA GARCIA RENDERING 2 [facility] INC INC W/INTERP& POSTPROC DIFF WORK STATION BLOOD 60139 RADHA GARCIA COUNT 2 [facility] COMPLETE INC INC AUTO&AUTO DIFRNTL WBC THER 00899 RADHA GARCIA PROPH/DX 2 [facility] NJX EA INC INC SEQL IV PUSH SBST/DRUG FAC SKIN TEST 40225 RADHA GARCIA 2 [facility] TUBERCULO INC INC SIS INTRADERM AL RADIOLOGI 12053 [place] [facility] C EXAM 2 MEDICAL ROM CHEST 2 IMAGING VIEWS ASS FRONTAL&[place] [address] RADHA GARCIA AMYLASE 2 [facility] INC INC COMPREHEN 98198 RADHA GARCIA SIVE 2 [facility] METABOLIC INC INC PANEL URNLS DIP 39001 RADHA GARCIA 2 [facility] STICK/TAB INC INC [place] [address] RADHA GARCIA LIPASE 2 [facility] INC INC CULTURE 94856 RADHA GARCIA BACTERIAL 2 [facility] INC INC QUANTTATI VE COLONY COUNT URINE BLOOD 59154 RADHA GARCIA COUNT 2 [facility] COMPLETE INC INC AUTO&[place] [address] RADHA GARCIA INFUSION 2 [facility] THERAPY INC INC PROPHYLAX IS/DX EA HOUR CUL 68758 RADHA GARCIA PRSMPTV 2 [facility] PTHGNC INC INC ORGANISMS SCR DNS CHART EGD 69317 RADHA GARCIA TRANSORAL 2 [facility] BIOPSY INC INC SINGLE/[place] [address] RADHA GARCIA INFUSION 2 [facility] THERAPY/P INC INC ROPHYLAXI S /DX 1ST TO 1 HR ECG 74715 BESSON BESSON ROUTINE 2 REJI REJI ECG W/LEAST 12 LDS I&R ONLY CRITICAL 51627 [facility] CARE 2 ISAAC ISAAC ILL/INJUR ED PATIENT INIT 30-74 MIN URINE 50806 RADHA GARCIA 2 [facility] TEST INC INC VISUAL COLOR CMPRSN METHS URNLS DIP 48428 RADHA GARCIA 2 [facility] STICK/TAB INC INC [place] [address] [place] UPR W/WO 2 MEDICAL ROM GLUCOSE IMAGING W/SM ASS INTEST FOLLW-THR U RADEX 52951 RADHA GARCIA SMALL 2 [facility] INTESTINE INC INC W/MULTIPL E SERIAL IMAGES C-REACTIV 72078 RADHA GARCIA E PROTEIN 2 [facility] INC INC BLOOD 25206 RADHA GARCIA COUNT 2 [facility] COMPLETE INC INC AUTO&AUTO DIFRNTL WBC OPHTH 46576 JOSE GARCIA RA MEDICAL 2 XM&EVAL COMPRE NEW PT 1/> VST DETERMINA 22418 JOSE KNAPP GARCIA RA TION 2 [place] [address] RADHA GARCIA AMYLASE 2 [facility] INC INC THERAPEUT 17940 RADHA GARCIA IC 2 [facility] INJECTION INC INC IV PUSH EACH NEW DRUG COMPREHEN 53355 RADHA RADHA SIVE 2 [facility] METABOLIC INC INC PANEL URNLS DIP 74956 RADHA GARCIA 2 [facility] STICK/TAB INC [place] [address] RADHA GARCIA INFUSION 2 [facility] THERAPY/P INC INC ROPHYLAXI S /DX 1ST TO 1 [place] [address] RADHA GARCIA LIPASE 2 [facility] INC INC BLOOD 94002 RADHA GARCIA COUNT 2 [facility] COMPLETE INC INC AUTO&AUTO DIFRNTL WBC BLOOD 05900 RADHA GARCIA COUNT 2 [facility] COMPLETE INC INC AUTO&[place] [address] RADHA GARCIA LIPASE 2 [facility] INC INC THER 46941 RADHA GARCIA PROPH/DX 2 [facility] NJX IV INC INC PUSH SINGLE/1S T SBST/DRUG COMPREHEN 92958 RADHA GARCIA SIVE 2 [facility] METABOLIC INC INC PANEL COMPREHEN 81247 RADHA GARCIA SIVE 2 [facility] [place] [address] RADHA GARCIA AMYLASE 2 [facility] INC INC URNLS DIP 80009 RADHAANYI GARCIA 2 [facility] STICK/TAB INC INC [place] [address] RADHA GARCIA LIPASE 2 [facility] INC INC THERAPEUT 32427 RADHA GARCIA IC 2 [facility] PROPHYLAC INC INC TIC/DX INJECTION SUBQ/IM BLOOD 26153 RADHA GARCIA COUNT 2 [facility] COMPLETE INC INC AUTO&AUTO DIFRNTL WBC THERAPEUT 53848 RADHA GARCIA IC 2 [facility] PROPHYLAC INC INC TIC/DX INJECTION SUBQ/IM THERAPEUT 21743 RADHA GARCIA IC 2 [facility] PROPHYLAC INC INC TIC/DX INJECTION SUBQ/IM RADEX 64423 RADHA GARCIA SPINE 2 [facility] LUMBOSACR INC INC AL MINIMUM 4 VIEWS GROUND A0425 [facility]LEAGE 2 AMBULANCE AMBULANCE PER SERVICE SERVICE STATUTE MILE AMB A0427 [facility] SERVICE 2 AMBULANCE AMBULANCE ALS SERVICE SERVICE EMERGENCY TRANSPORT LEVEL 1 RADEX 25353 RADHA THOMASON RIBS UNI 2 [facility] W/POSTERO INC INC ANT CH MINIMUM 3 VIEWS RADEX HIP 82198 RADHA GARCIA 2 [facility] UNILATERA INC INC L COMPLETE MINIMUM 2 VIEWS INJECTION J2405 RADHAANYI GARCIA 1 [facility] ONDANSETR INC INC ON HCL PER 1 MG BLOOD 27775 RADHA GARCIA COUNT 1 [facility] COMPLETE INC INC AUTO&[place] [address] RADHA GARCIA INFUSION 1 [facility] THERAPY INC INC PROPHYLAX IS/DX EA HOUR 3D 07116 RADHA GARCIA RENDERING 1 [facility] INC INC W/INTERP& POSTPROC DIFF WORK STATION BASIC 94085 RADHA GARCIA METABOLIC 1 [facility] PANEL INC INC CALCIUM TOTAL HEPATIC 76060 RADHA GARCIA FUNCTION 1 [facility] [place] [address] RADHA GARCIA ABDOMEN & 1 [facility] PELVIS INC INC W/[place] [address] RADHA GARCIA LIPASE 1 [facility] INC INC URNLS DIP 10277 RADHA GARCIA 1 [facility] STICK/TAB INC [place] [address] RADHA GARCIA INFUSION 1 [facility] THERAPY/P INC INC ROPHYLAXI S /DX 1ST TO 1 [place] [address] RADHA GARCIA INFUSION 1 [facility] THERAPY/P INC INC ROPHYLAXI S /DX 1ST TO [place] [address] RADHA GARCIA INFUSION 1 [facility] THERAPY INC INC PROPHYLAX IS/DX EA HOUR INJECTION J1745 RADHA GARCIA 1 [facility] INFLIXIMA INC INC B EXCLUDES BIOSIMILA R 10 MG IAADI 01311 RADHA GARCIA INFLUENZA 1 [facility] B VIRUS INC INC IAADI 43148 RADHA GARCIA INFFLUENZ 1 [facility] [place] [address] RADHA GARCIA STREPTOCO 1 [facility] CCUS INC INC GROUP A 3D 07691 RADHA GARCIA RENDERING 1 [facility] INC INC W/INTERP& POSTPROC DIFF WORK STATION INJECTION J2405 RADHAANYI GARCIA 1 [facility] ONDANSETR INC INC ON HCL PER 1 MG BLOOD 90464 RADHA GARCIA COUNT 1 [facility] COMPLETE INC INC AUTO&AUTO DIFRNTL WBC URNLS DIP 94797 RADHA GARCIA 1 [facility] STICK/TAB INC INC LET REAGENT AUTO MICROSCOP Y GROUND A0425 [facility]AN SUSAN MILEAGE 1 AMBULANCE AMBULANCE PER SERVICE SERVICE STATUTE MILE URINE 93736 RADHA GARCIA 1 [facility] TEST INC INC VISUAL COLOR CMPRSN METHS CT SOFT 40159 RADHA GARCIA TISSUE 1 [facility] NECK INC INC W/CONTRAS T MATERIAL AMBULANCE A0429 [facility] SERVICE 1 AMBULANCE AMBULANCE BLS SERVICE SERVICE EMERGENCY TRANSPORT RADIOLOGI 40252 RADHA GARCIA C EXAM 1 [facility] CHEST 2 INC INC VIEWS FRONTAL&L ATERAL COMPREHEN 37612 RADHA GARCIA SIVE 1 [facility] [place] [address] RADHA GARCIA STREPTOCO 1 [facility] CCUS INC INC GROUP A IAADI 64421 RADHA GARCIA INFFLUENZ 1 [facility] A A VIRUS INC INC IAADI 56399 RADHA GARCIA INFLUENZA 1 [facility] [place] [address] RADHA GARCIA INFUSION 1 [facility] THERAPY INC [place] PROPHYLAX [place] [address] RADHA GARCIA INFUSION 1 [facility] THERAPY/P INC INC ROPHYLAXI S /DX 1ST TO 1 HR RADIOLOGI 56118 [facility] C EXAM 1 MEDICAL ROM CHEST 2 IMAGING VIEWS ASS FRONTAL&L ATERAL SKIN TEST 07039 RADHA GARCIA 1 [facility] [place]UBER[place] [address] RADHA GARCIA INFUSION 1 [facility] THERAPY INC INC PROPHYLAX IS/DX EA HOUR 3D 11406 [facility] RENDERING 1 MEDICAL ROM IMAGING W/INTERP& ASS POSTPROC DIFF WORK STATION RADIOLOGI 97231 [facility] C EXAM 1 MEDICAL ROM CHEST 2 IMAGING VIEWS ASS FRONTAL&[place] [address] RADHA GARCIA INFUSION 1 [facility] THERAPY/P INC INC ROPHYLAXI S /DX [address] [place] [address] [place] [address] [facility] MOORE ABDOMEN & 1 MEDICAL ROM PELVIS IMAGING W/[place] [address] RADHA RADHA LIPASE 1 [facility] INC INC URNLS DIP 55869 RADHA GARCIA 1 [facility] STICK/TAB INC INC LET REAGENT AUTO MICROSCOP Y COMPREHEN 77330 RADHAANYI GARCIA SIVE 1 [facility] METABOLIC INC INC PANEL BLOOD 97665 RADHA RADHA COUNT 1 [facility] COMPLETE INC INC AUTO&AUTO DIFRNTL WBC BLOOD 00603 RADHA RADHA COUNT 1 [facility] COMPLETE INC INC AUTO&AUTO DIFRNTL WBC BASIC 16903 RADHAANYI GARCIA METABOLIC 1 [facility] PANEL INC INC CALCIUM TOTAL URNLS DIP 36584 [facility] GARCIA 1 [facility] STICK/TAB INC INC LET REAGENT AUTO MICROSCOP Y URNLS DIP 51285 RAD[facility]ANYI GARCIA 1 [facility] STICK/TAB [place] [address] RADHAANYI GARCIA INFUSION 1 [facility] THERAPY/P INC INC ROPHYLAXI S /DX 1ST TO [address] [place] [address] RADHA [facility]ARCIA LIPASE 1 [facility] [place] [address] RADHA GARCIA AMYLASE 1 [facility] INC INC COMPREHEN 08694 RAD[facility] GARCIA SIVE 1 [facility] METABOLIC INC INC PANEL BLOOD 72951 RADHA GARCIA COUNT 1 [facility] COMPLETE INC INC AUTO&[place] [address] RADHA GARCIA INFUSION 1 [facility] THERAPY INC INC PROPHYLAX IS/DX EA HOUR SKIN TEST 43697 RADHA GARCIA 1 [facility] SIS INTRADERM AL RADIOLOGI [address] [place] C EXAM 1 MEDICAL ROM CHEST 2 IMAGING VIEWS ASS FRONTAL&L ATERAL URNLS DIP 67227 RAD[facility] GARCIA 1 [facility] STICK/TAB INC INC LET REAGENT AUTO MICROSCOP Y C-REACTIV 12979 RADHA GARCIA E PROTEIN 0 [facility] HIGH INC INC SENSITIVI TY OVA&JACQUELINE 60356 [facility] GARCIA ITES 0 [facility] DIRECT INC INC SMEARS CONCENTRA TION & ID CUL BACT 47425 RAD[facility]ARC[facility] STOOL 0 [facility] AEROBIC INC INC ISOL SALMONELL A&[place] [address] RADHA GARC[facility] CLOSTRIDI 0 [facility] [place] [address] RADHA GARCIA GIARDIA 0 [facility] INC INC URNLS DIP 01813 RADHA RADHA 0 [facility] STICK/TAB INC [place] [address] RAD[facility] GARCIA INFUSION 0 [facility] THERAPY/P INC INC ROPHYLAXI S /DX 1ST TO 1 [place] [address] RADHA GARCIA INFUSION 0 [facility] THER INC INC PROPH ADDL SEQUENTIA L TO 1 HR COMPREHEN 79439 RAD[facility] GARCIA SIVE 0 [facility] [place] [address] RADHA GARCIA AMYLASE 0 [facility] INC INC URNLS DIP 72506 [facility] THOMASON 0 [facility] STICK/TAB INC INC [place] [address] RADHA GARCIA LIPASE 0 [place] [address] RADHA GARCIA STREPTOCO 0 [facility] CCUS INC INC GROUP A BLOOD 76014 RADHA GARCIA COUNT 0 [facility] COMPLETE INC INC AUTO&[place] [address] SHARON CASTILLOUTCHER, MINIMUM 0 MEDICAL CASEY 2 VIEWS IMAGING ASSOCIATE S AMBULANCE A0429 [facility] SERVICE 0 AMBULANCE AMBULANCE BLS SERVICE SERVICE EMERGENCY TRANSPORT GROUND A0425 [facility] MILEAGE 0 AMBULANCE AMBULANCE PER SERVICE SERVICE STATUTE MILE APPL 70183 RADHA RADHA MODALITY 9 [facility] 1/> AREAS INC INC ELEC STIMJ UNATTENDE D PHYSICAL 85385 RADHA GARCIA THERAPY 9 [facility] EVALUATIO INC INC N THERAPEUT 60958 RADHA THOMASON IC PX 1/> 9 [facility] AREAS INC INC EACH 15 MIN EXERCISES APPLICATI 74385 [facility] GARCIA ON 9 [facility] MODALITY INC INC 1/> AREAS HOT/COLD PACKS APPL 55259 RADHAANYI GARCIA MODALITY 9 [facility] 1/> AREAS INC INC ULTRASOUN D EA 15 MIN PSYCHOLOG 41097 [facility]IC[facility] [facility] ADMN BY [facility] TECH IA HR NRV CNDJ 78884 SIENNA EL, AMPLT&LAT 9 KP [facility] ENCY EA NRV MOTOR W/F-WAVE STD NRV CNDJ 64387 SIENNA EL, AMPLITUDE 9 KP [facility] & LATENCY EACH NERVE SENSORY NDL EMG 1 34726 SIENNA EL, XTR W/WO 9 KP [facility] RELATED PARASPINA L AREAS MRI 30550 CASEY MOORE, SPINAL 9 TERESAREBEKAH PEÑA CANAL LUMBAR W/O CONTRAST MATERIAL ECHO 19712 RADHA GARCIA TTHRC R-T 9 [facility] 2D INC INC W/WOM-MOD E COMPL SPEC&COLR D 3D 23598 CASEY MOORE, RENDERING 9 TERESA CASEY W/INTERP & POSTPROCE SS SUPERVISI ON CYANOCOBA 32518 RADHA GARCIA JAKOB 9 [facility] VITAMIN INC INC B-12 HEMOGLOBI 57524 RADHA GARCIA N 9 [facility] GLYCOSYLA INC INC ANGELA A1C COMPREHEN 79001 [facility] 9 [facility] [place] [address] RAD[facility] GARC[facility] FOLIC 9 [facility] ACID INC INC SERUM SYPHILIS 10153 RAD[facility] GARCIA TEST 9 [facility] NON-TREPO INC [place] [address] RADHA GARCIA THYROXINE 9 [facility] TOTAL INC INC BLOOD 75244 [facility] GARCIA COUNT 9 [facility] COMPLETE INC INC AUTO&AUTO DIFRNTL WBC RHEUMATOI 66654 RADHA GARCIA D FACTOR 9 [facility] QUANTITAT INC INC ANIYAH PROTEIN 31885 RADHA GARCIA ELECTROPH 9 [facility] ORETIC INC INC FRACTJ&[place] [address] RADHA GARCIA THYROID 9 [facility] STIMULATI INC INC NG HORMONE TSH C-REACTIV 52299 RADHA GARCIA E PROTEIN 9 [facility] HIGH INC INC SENSITIVI TY BLOOD 12347 RADHAANYI THOMASON COUNT 9 [facility] COMPLETE INC INC AUTO&AUTO DIFRNTL WBC RADIOLOGI 29206 RADHA GARCIA C EXAM 9 [facility] CHEST 2 INC INC VIEWS FRONTAL&L ATERAL COMPREHEN 54145 RADHA THOMASON SIVE 9 [facility] METABOLIC INC INC PANEL THERAPEUT 79479 RADHA GARCIA IC 9 [facility] PROPHYLAC INC INC TIC/DX INJECTION SUBQ/[place] [address] [facility] ANALI KOHLER, ABDOMEN 9 RADIOLOGY J W/O CONTRAST MATERIAL CT PELVIS 95846 [facility] ANALI KOHLER, W/O 9 RADIOLOGY J CONTRAST MATERIAL BLOOD 60433 RAD[facility] GARCIA COUNT 9 [facility] COMPLETE INC INC AUTO&[place] [address] RADHA GARCIA AMYLASE 9 [facility] INC INC URINE 80732 [facility] GARCIA 9 [facility] TEST INC INC VISUAL COLOR CMPRSN METHS RADEX 33707 [place] HARLEEN, ABDOMEN 9 [facility] [place] P COMPL IMAGING W/DCBTS&/ ASSOCIATE ERC VIEWS S COMPREHEN 35001 [facility] GARCIA SIVE 9 [facility] METABOLIC INC INC PANEL URNLS DIP 90027 [facility] GARCIA 9 [facility] STICK/TAB INC INC LET REAGENT AUTO MICROSCOP Y CYANOCOBA 20337 RADHA GARCIA JAKOB 9 [facility] VITAMIN INC INC B-12 BLOOD 64614 RADHA GARCIA COUNT 9 [facility] COMPLETE INC INC AUTO&AUTO DIFRNTL WBC RADEX 38748 [place] HARLEEN, SPINE 9 [facility] SCOLIOS IMAGING STUDY ASSOCIATE W/SUPINE S & ERECT STUDY OBSERVATI 25202 [facility]UD [facility] ON CARE 9 , CALEB , CALEB DISCHARGE MANAGEMEN T RADEX ABD 06313 [facility] ANALI JOSE F COMPL 9 RADIOLOGY J AQT ABD W/S/E/D VIEWS 1 VIEW CH INITIAL 94154 [facility] OBSERVATI 9 , CALEB , CALEB ON CARE/[address] [place] [address] [facility] ANALI SHEL[place] ABDOMEN 9 RADIOLOGY JUDAH Abdalla W/O CONTRAST [address]ERIAL [facility] PELVIS 25734 [facility] ANLAI SHE[place] W/O 9 [place] [address] RADHA GARCIA INFUSION 9 [facility] THERAPY/P INC INC ROPHYLAXI S /DX 1ST TO 1 HR COMPREHEN 98451 RADHA GARCIA SIVE 9 [facility] METABOLIC INC INC PANEL RADEX 76714 RADHA GARCIA ABDOMEN 9 [facility] COMPL INC INC W/DCBTS&/ ERC VIEWS URNLS DIP 63174 [facility] GARCIA 9 [facility] STICK/TAB INC INC LET REAGENT AUTO MICROSCOP Y BLOOD 35760 RADHA GARCIA COUNT 9 [facility] COMPLETE INC INC AUTO&[place] [address] SHARON CANSECO, HEAD/BRAI 9 [facility] [place] P N W/O IMAGING CONTRAST ASSOCIATE MATERIAL S 3D 42372 RADHA GARCIA RENDERING 9 [facility] W/INTERP INC INC & [place] [address] [facility] [place] JOSE F, ABDOMEN 9 RADIOLOGY J W/CONTRAS T [place] PELVIS [address] [facility] [place] JOSE F, 9 RADIOLOGY J W/CONTRAS T [place] PELVIS [address] [facility] [place] CESAR, 9 RADIOLOGY LUIS G W/[place] [address] [facility] [place] CESAR, ABDOMEN 9 RADIOLOGY LUIS G W/CONTRAS T MATERIAL RADEX 73448 RADHA GARCIA SPINE 8 [facility] LUMBOSACR INC INC AL MINIMUM 4 [place] [address] RADHA GARCIA TRACT UPR 8 [facility] W/SM INT INC INC W/[place] [address] SHARON TERESA, UPR W/WO 8 MEDICAL CASEY GLUCOSE IMAGING W/SM ASSOCIATE INTEST S FOLLW-THR U COMPREHEN 95635 RADHA GARCIA SIVE 8 [facility] [place] [address] RADHA GARCIA AMYLASE 8 [facility] INC INC GROUND A0425 [facility] IMP[facility] POINT 8 AMBULANCE AMBULANCE PER SERVICE SERVICE STATUTE MILE AMBULANCE A0429 [facility] SERVICE 8 AMBULANCE AMBULANCE BLS SERVICE [place] [address] RADHA GARCIA LIPASE 8 [facility] INC INC URNLS DIP 65033 RADHA GARCIA 8 [facility] STICK/TAB INC INC LET REAGENT AUTO MICROSCOP Y BLOOD 50388 RADHA GARCIA COUNT 8 [facility] COMPLETE INC INC AUTO&[place] [address] RADHA GARCIA THER 8 [facility] PROPH/DX INC INC 1ST >[address] PELVIS [address] [place] DODSON, 8 MEDICAL PAUL[place] W/[place] [address] [facility] ABDOMEN 8 Y Y W/CONTRAS HOSPITAL HOSPITAL T MATERIAL INJECTION J2270 [facility] MORPHINE 8 Y Y SULFATE [facility] UP TO 10 MG COLLECTIO 44105 [facility] N VENOUS 8 Y Y BLOOD [facility] VENIPUNCT URE COMPREHEN 05828 [facility] SIVE 8 Y Y METABOLIC [facility] PANEL URNLS DIP 42859 [facility] 8 Y Y STICK/TAB HOSPITAL HOSPITAL [place] [address] [facility] INFUSION 8 Y Y HYDRATION [facility] INITIAL 31 MIN-1 HR THER 43035 [facility] PROPH/DX 8 Y Y NJX [facility] SEQL IV PUSH SBST/DRUG SUBCUTANE 08935 [facility] OUS 8 Y Y INFUSION [facility] EACH ADDITIONA L IV PUSH INJECTION J2405 [facility] 8 Y Y [facility] ON HCL PER 1 MG BLOOD 29005 [facility] COUNT 8 Y Y COMPLETE [facility] AUTOMATED RINGERS J7120 [facility] LACTATE 8 Y Y INFUSION [facility] UP TO 1000 CC THER 09771 [facility] PROPH/DX 8 Y Y NJX IV [facility] PUSH 1ST SBST/DRUG GONADOTRO 50608 [facility] PIN 8 Y Y CHORIONIC [facility] QUALITATI VE RADEX ABD 56336 [facility] COMPL 8 Y Y AQT ABD HOSPITAL HOSPITAL W/S/E/D VIEWS 1 VIEW CH INJECTION J3010 [facility] FENTANYL 8 Y Y CITRATE [facility] 0.1 [place] NFS 21861 RADHA GARCIA THER 8 [facility] PROPH/DX INC INC 1ST >1 HR RADEX ABD 26497 SHARON MOORE, COMPL 8 MEDICAL CASEY AQT ABD IMAGING W/S/E/D ASSOCIATE VIEWS 1 S VIEW CH BLOOD 12519 RADHA GARCIA COUNT 8 [facility] COMPLETE INC INC AUTO&[place] [address] RADHA GARCIA LIPASE 8 [facility] INC INC COMPREHEN 91499 RADHA GARCIA SIVE 8 [facility] [address] RADHA GARCIA AMYLASE 8 [place] [address] RADHA GARCIA AMYLASE 8 [facility] INC INC COMPREHEN 61660 RADHA GARCIA SIVE 8 [facility] METABOLIC INC INC PANEL BILIRUBIN 55610 RADHA GARCIA DIRECT 8 [place] [address] RADHA GARCIA LIPASE 8 [facility] INC INC URNLS DIP 61355 RADHA GARCIA 8 [facility] STICK/TAB INC INC LET REAGENT AUTO MICROSCOP Y BLOOD 26599 RADHA GARCIA COUNT 8 [facility] COMPLETE INC INC AUTO&AUTO DIFRNTL WBC RADEX ABD 79157 [place] TERESA COMPL 8 MEDICAL CASEY AQT ABD IMAGING W/S/E/D ASSOCIATE VIEWS [address] [place] [place] [address] [facility] [place] P IMAGING W/INTERP& ASSOCIATE POSTPROC S DIFF WORK STATION CT PELVIS 90209 RADHA GARCIA 8 [facility] W/[place] [address] RADHA GARCIA ABDOMEN 8 [facility] W/CONTRAS INC INC T MATERIAL BLOOD 50036 RADHA GARCIA COUNT 8 [facility] COMPLETE INC INC AUTO&AUTO DIFRNTL WBC C-REACTIV 71743 RADHA GARCIA E PROTEIN 8 [facility] HIGH INC INC SENSITIVI TY BLOOD 17687 RADHA GARCIA COUNT 8 [facility] COMPLETE INC INC AUTO&AUTO DIFRNTL WBC BASIC 92663 RADHA GARCIA METABOLIC 8 [facility] PANEL INC INC CALCIUM TOTAL CYANOCOBA 70487 RADHA GARCIA JAKOB 8 [facility] VITAMIN INC INC B-12 RADIOLOGI 73470 [place] HARLEEN C EXAM 8 [facility] [place] P CHEST 2 IMAGING VIEWS ASSOCIATE FRONTAL&L S ATERAL IAADI 93024 RADHA GARCIA INFFLUENZ 8 [facility] A A VIRUS INC INC IAADI 07739 RADHA GARCIA INFLUENZA 8 [facility] [place] [address] RADHA GARCIA THER 8 [facility] PROPH/DX INC INC 1ST >1 HR CULTURE 76352 RADHA GARCIA BACTERIAL 8 [facility] INC INC QUANTTATI VE COLONY COUNT URINE BLOOD 30476 RADHA GARCIA COUNT 8 [facility] COMPLETE INC INC AUTO&AUTO DIFRNTL WBC RADEX ABD 55395 [place] HARLEEN, COMPL 8 [facility] [place] P AQT ABD IMAGING W/S/E/D ASSOCIATE VIEWS 1 [place] [address] RADHA GARCIA AMYLASE 8 [place] [address] RAHDA GARCIA LIPASE 8 [facility] INC INC URNLS DIP 90252 RADHA GARCIA 8 [facility] STICK/TAB INC INC 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 AUTO MICROSCOP Y COMPREHEN 44518 RADHA GARCIA SIVE 8 [facility] METABOLIC INC INC PANEL RADIOLOGI 75230 RADHA GARCIA C EXAM 8 [facility] CHEST 2 INC INC VIEWS FRONTAL&L ATERAL RADEX 73812 RADHA GARCIA SPINE 8 [facility] CERVICAL INC INC 6 OR MORE VIEWS RADEX 65138 RADHA GARCIA SPINE 8 [facility] THORACIC INC INC [address] PELVIS 00202 RADHA GARCIA W/O 8 [facility] CONTRAST INC INC MATERIAL 3D 52313 RADHA GARCIA RENDERING 8 [facility] INC INC W/INTERP& POSTPROC DIFF WORK STATION BLOOD 04054 RADHA GARCIA COUNT 8 [facility] COMPLETE INC INC AUTO&[place] [address] RADHA GARCIA AMYLASE 8 [place] [address] RADHA GARCIA ABDOMEN 8 [facility] W/O INC INC CONTRAST MATERIAL RADEX 25101 SHARON MOORE SMALL 8 MEDICAL CASEY INTESTINE IMAGING ASSOCIATE W/MULTIPL S E SERIAL IMAGES COMPREHEN 98190 RADHA GARCIA SIVE 8 [facility] METABOLIC INC INC PANEL URNLS DIP 36713 RADHA GARCIA 8 [facility] STICK/TAB INC INC [place] [address] RADHA GARCIA LIPASE 8 [facility] INC INC [place] 57705 [place] YARA, PY 8 MEDICAL CALVIN W/BIOPSY SERV SINGLE/MU FOUNDATIO LTIPLE ANES 61581 [facility] 8 ANESTH REY INTESTINE OF THE [facility] [place] [address] RADHA GARCIA THER 8 [facility] PROPH/DX INC INC 1ST >1 [place] [address] PATHOLOGY PATHOLOGY SURG 8 & & PATHOLOGY CYTOLOGY CYTOLOGY LAB LAB GROSS&ISAAC ROSCOPIC EXAM CLOSED 4525 RADHA GARCIA [ENDOSCOP 8 [facility] IC] INC INC BIOPSY OF LARGE INTESTINE Encounters Encounter Start End Date Code Location Performer Type Date OFFICE [address] [facility] MCDANIELS OUTPATIEN 7 7 [facility] T VISIT 25 PHYSICIAN MINUTES S OFFICE [address] ST JESSICA OUTPATIEN 7 7 [facility] T VISIT 25 PHYSICIAN MINUTES S EMERGENCY 58035 [facility] CHRISTIAN DEPT 7 7 EMERGENCY VISIT HIGH PHYSICIAN SEVERITY& S THREAT FUN EMERGENCY 72296 [facility] ADERS 7 7 EMERGENCY DEPARTMEN T VISIT PHYSICIAN HIGH/URGE S NT SEVERITY EMERGENCY 05263 [facility] FAVIER DEPT 7 7 EMERGENCY VISIT HIGH PHYSICIAN SEVERITY& S THREAT FUN EMERGENCY 22481 [facility] MEGHA DEPT 7 7 EMERGENCY VISIT HIGH PHYSICIAN SEVERITY& S THREAT [facility] ST - 7 7 [facility] OUTPATIEN FT T KARINE OFFICE 13435 [facility] OUTPATIEN 7 7 [facility] T VISIT 25 PHYSICIAN [address]ES S [facility] [address] - 7 7 [facility] OUTPATIEN T [facility] - 7 7 [facility] OUTPATIEN [facility] EMERGENCY 15871 SHAILESH POSADAS 6 6 EMERGENCY N DEPARTMEN T VISIT PHYSICIAN HIGH/URGE S NT SEVERITY OFFICE 70009 NIRUJOG[facility] OUTPATIEN 6 6 [facility] GELACIO T VISIT 25 PHYSICIAN MINUTES S PERIODIC 94043 MCDANIELS PREVENTIV 6 6 [facility] E MED EST PATIENT PHYSICIAN 40-64YRS S OFFICE 72131 [facility] 6 [facility] ION NEW/ESTAB PHYSICIAN PATIENT S [address] OTHER 6 6 [facility] 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 ST OFFICE [address] ST NIRUJOGI CONSULTAT 6 6 [facility] GELACIO ION NEW/ESTAB PHYSICIAN PATIENT S 60 MIN EMERGENCY 41252 SHAILESH FAN-Shiela DEPT 6 6 EMERGENCY AXWELL VISIT REJI HIGH PHYSICIAN SEVERITY& S THREAT [facility] RADHA - 6 6 [facility] OUTPATIEN INC T EMERGENCY 81360 MILAGROS SWEENEY 6 6 PHYSICIAN SAMM TOWNSEND S, [facility] T VISIT HIGH/URGE NT SEVERITY EMERGENCY 78724 RADHA 6 6 [facility] DEPARTMEN INC T VISIT LOW/MODER SEVERITY HOSPITAL RADHA - 6 6 [facility] OUTPATIEN INC T OFFICE 09761 [facility] DIEGO OUTPATIEN 6 6 PHYSICIAN T NEW 20 GROUP MINUTES HOSPITAL RADHA - 6 6 [facility] OUTPATIEN INC T EMERGENCY 71900 MILAGROS HERNANDEZ 6 6 PHYSICIAN DEPARTMEN S, PLLC T VISIT HIGH/URGE NT SEVERITY HOSPITAL RADHA - 6 6 [facility] OUTPATIEN INC T OFFICE 57478 [facility] DUNN OUTPATIEN 6 6 PHYSICIAN STONE T VISIT S GROUP PA-C MUKUND 25 MINUTES HOSPITAL RADHA - 6 6 [facility] OUTPATI[facility] INC T HOSPITAL RADHA - 6 6 [facility] OUTPATIEN INC T EMERGENCY 80943 RADHA 6 6 [facility] T VISIT LIMITED/M INOR PROB EMERGENCY 45952 MILAGROS STEWART 6 6 PHYSICIAN [facility], [facility] T VISIT MODERATE SEVERITY EMERGENCY 81664 [facility] 6 6 [facility] T VISIT LOW/MODER SEVERITY HOSPITAL RADHA - 6 6 [facility] OUTPATIEN [facility] T EMERGENCY 68465 MIL[place] HERNANDEZ 6 6 PHYSICIAN DEPARTMEN S, [facility] T VISIT HIGH/URGE NT SEVERITY OFFICE 62139 [facility] JENNY 6 6 PHYSICIAN T VISIT S GROUP 10 MINUTES OFFICE 43301 [facility] 6 PHYSICIAN STONE T VISIT S GROUP PA-C MUKUND 10 MINUTES EMERGENCY 44757 MILAGROS JALLOH 6 [address] [facility] S, [facility] T VISIT MODERATE SEVERITY HOSPITAL RADHA - 6 6 [facility] OUTPATIEN [facility] T EMERGENCY 43439 RADHA 6 6 [facility] T VISIT LOW/MODER SEVERITY HOSPITAL RADHA - 6 6 [facility] OUTPATIEN INC T HOSPITAL RADHA - 6 6 [facility] OUTPATIEN INC T EMERGENCY 76106 MILAGROS HERRERA 6 6 PHYSICIAN DEPARTMEN S, [facility] T VISIT MODERATE SEVERITY EMERGENCY 05212 RADHA 6 6 [facility] T VISIT LIMITED/M INOR PROB HOSPITAL RADHA - 6 6 [facility] OUTPATIEN [facility] T EMERGENCY 85654 RADHA 6 6 [facility] DEPARTMEN [facility] T VISIT LOW/MODER SEVERITY EMERGENCY 41832 MILAGROS JALLOH 6 6 PHYSICIAN ISAAC DEPARTMEN S, [facility] T VISIT MODERATE SEVERITY HOSPITAL RADHA - 6 6 [facility] OUTPATIEN [facility] HOSPITAL RADHA - 6 6 [facility] OUTPATIEN [facility] HOSPITAL RADHA - 5 5 [facility] OUTPATIEN [facility] HOSPITAL RADHA - 5 5 [facility] OUTPATIEN [facility] OFFICE 16321 [facility] 5 MEDICAL KERLINE T VISIT SERV 25 FOUNDATIO MINUTES HOSPITAL RADHA - 5 5 [facility] OUTPATIEN [facility] EMERGENCY 21774 RADHA 5 5 [facility] T VISIT LOW/MODER SEVERITY EMERGENCY 91547 MILAGROS JALLOH DEPT 5 5 PHYSICIAN ISAAC VISIT [facility] HIGH SEVERITY& THREAT FUNCJ EMERGENCY 90122 MILAGROS MULTANI DEPT 5 5 PHYSICIAN CHERIEZ VISIT [facility] HIGH SEVERITY& THREAT FUNCJ EMERGENCY 53255 RADHA 5 5 [facility] DEPARTMEN [facility] T VISIT HIGH/URGE NT SEVERITY HOSPITAL RADHA - 5 5 [facility] OUTPATIEN [facility] OFFICE 40592 [facility] PHYSICIAN ISAAC T VISIT S GROUP 10 MINUTES EMERGENCY 85411 RADHA 5 5 [facility] DEPARTMEN [facility] T VISIT LOW/MODER SEVERITY EMERGENCY 30050 MILAGROS JALLOH 5 5 PHYSICIAN ISAAC DEPARTMEN S, PLLC T VISIT MODERATE SEVERITY HOSPITAL RADHA - 5 5 [facility] OUTPATIEN INC T OFFICE 96162 [facility] YEIMI OUTPATIEN 5 5 PHYSICIAN ISAAC T VISIT S GROUP 25 MINUTES EMERGENCY 28006 MILAGROS ESCALANTE 5 5 PHYSICIAN KETAN DEPARTMEN S, PLLC T VISIT MODERATE SEVERITY OFFICE 84205 [facility] YEIMI OUTPATIEN 5 5 PHYSICIAN ISAAC T VISIT S GROUP 15 MINUTES HOSPITAL RADHA - 5 5 [facility] OUTPATIEN INC T EMERGENCY 69579 [facility] 5 5 DEPARTMEN T VISIT HIGH/URGE NT SEVERITY EMERGENCY 25881 SUSHILA Abdalla 5 5 DEPARTMEN T VISIT MODERATE SEVERITY OFFICE 74126 [facility] YEIMI OUTPATIEN 5 5 PHYSICIAN ISAAC T VISIT S GROUP 25 MINUTES HOSPITAL RADHA - 5 5 [facility] OUTPATIEN INC T EMERGENCY 97990 [facility] 5 5 DEPARTMEN T VISIT HIGH/URGE NT SEVERITY EMERGENCY 40377 BANNER YEIMI 5 5 [place] ISAAC DEPARTMEN T VISIT MODERATE SEVERITY OFFICE 03832 ANALI TO OUTPATIEN 5 5 MEDICAL T VISIT SERV 25 FOUNDATIO MINUTES N HOSPITAL RADHA - 5 5 [facility] OUTPATIEN INC T HOSPITAL RADHA - 5 5 [facility] OUTPATIEN INC T OFFICE 62743 [facility] OUTPATIEN 5 5 PHYSICIAN T VISIT S GROUP 15 MINUTES OFFICE 00113 [facility] YEIMI OUTPATIEN 5 5 PHYSICIAN ISAAC T VISIT S GROUP 15 MINUTES OFFICE 71419 [facility] YEIMI OUTPATIEN 5 5 PHYSICIAN ISAAC T VISIT S GROUP 15 MINUTES HOSPITAL RADHA - 5 5 [facility] OUTPATIEN INC T EMERGENCY 24654 RADHA GUSMAN 4 4 [facility] T VISIT P LOW/MODER SEVERITY HOSPITAL RADHA Terrazas 4 4 [facility] OUTPAT[facility]EN [facility] T EMERGENCY 12104 RADHA JEAN BAPTISTE 4 4 [facility] T VISIT P HIGH/URGE NT SEVERITY EMERGENCY 03025 RADHA DE JESUS 4 4 [facility] T VISIT P HIGH/URGE NT SEVERITY HOSPITAL RADHA - 4 4 [facility] OUTPATIEN [facility] EMERGENCY 76980 RADHA GUSMAN 4 4 [facility] T VISIT P LOW/MODER SEVERITY EMERGENCY 17460 RADHA 4 4 [facility] T VISIT HIGH/URGE NT SEVERITY HOSPITAL RADHA - 4 4 [facility] OUTPATIEN [facility] T EMERGENCY 80824 VORKPOR VORKPOR 4 4 [facility] T VISIT HIGH/URGE NT SEVERITY HOSPITAL UNIVERSIT - 4 4 [facility] T OFFICE 96435 ANALI DIALLO OUTPATIEN [address] T VISIT SERV 25 FOUNDATIO MINUTES EMERGENCY 68242 MARLI HORNE DEPT 4 4 VISIT HIGH SEVERITY& THREAT FUN HOSPITAL RADHA - 4 4 [facility] OUTPATI[facility] INC T OFFICE 98080 ANALI TO OUTPATIEN 4 4 MEDICAL T VISIT SERV 15 FOUNDATIO MINUTES HOSPITAL RADHA - 4 4 [facility] OUTPATI[facility] INC T OFFICE 06215 [facility] YEIMI OUTPATIEN 4 4 PHYSICIAN ISAAC T NEW 30 S GROUP MINUTES EMERGENCY 52430 SEN VORKPOR DEPT 4 4 [facility] VISIT HIGH SEVERITY& THREAT FUNCJ EMERGENCY 18069 VORK[facility] VORKPOR DEPT 4 4 [facility] VISIT HIGH SEVERITY& THREAT FUNCJ EMERGENCY 93749 VORKPOR VORKPOR 4 4 [facility] DEPARTMEN T VISIT HIGH/URGE NT SEVERITY EMERGENCY 39466 VORKPOR VORKPOR 4 4 [facility] DEPARTMEN T VISIT HIGH/URGE NT SEVERITY EMERGENCY 04225 ALFARIS ALFARIS 4 [address] [facility] DEPARTMEN T VISIT HIGH/URGE NT SEVERITY EMERGENCY 91792 KIT KIT 4 4 IMT IMT DEPARTMEN T VISIT MODERATE SEVERITY EMERGENCY 27828 YEIMI JALLOH 4 4 ISAAC ISAAC DEPARTMEN T VISIT MODERATE SEVERITY EMERGENCY 27810 YEIMI JALLOH DEPT 4 4 ISAAC ISAAC VISIT HIGH SEVERITY& THREAT FUNCJ EMERGENCY 99499 [facility] 4 4 CONRAD BRO DEPARTMEN EMERGENCY T VISIT PHYS HIGH/URGE NT SEVERITY EMERGENCY 94789 [facility] 4 4 CONRAD III JUAN ANTONIO DEPARTMEN EMERGENCY T VISIT PHYS MODERATE SEVERITY OFFICE 71850 RIGOBERTO ALVARADO 4 4 LEE ANN LEE ANN T VISIT 15 MINUTES EMERGENCY 75225 MARLI RAPP DEPT 4 4 VISIT HIGH SEVERITY& THREAT FUNCJ EMERGENCY 48296 [facility]NAM[facility] 4 4 BRO BRO DEPARTMEN T VISIT HIGH/URGE NT SEVERITY OFFICE 21099 YARA ANT YARA ANT SHAQUILLEPATIEN 3 3 T VISIT 15 MINUTES OFFICE 02682 RIGOBERTO ALVARADO 3 3 LEE ANN LEE ANN T VISIT 15 MINUTES EMERGENCY 97559 YEIMI JALLOH 3 3 ISAAC ISAAC DEPARTMEN T VISIT MODERATE SEVERITY EMERGENCY 21629 MARLI RAPP 3 3 DEPARTMEN T VISIT MODERATE SEVERITY OFFICE 56401 RIGOBERTO FRANKLIN [facility] 3 3 LEE ANN LEE ANN T VISIT 15 MINUTES EMERGENCY 62065 LIAM MARLI RAPP 3 3 EMERGENCY DEPARTMEN SERVICES T VISIT HIGH/URGE NT SEVERITY HOSPITAL [facility] - 3 3 Y [facility] T EMERGENCY 21086 CHARY DIEZ 3 3 FERNANDO KING DEPARTMEN T VISIT HIGH/URGE NT SEVERITY EMERGENCY 79957 [facility] 3 3 [facility] DEPARTMEN INC T VISIT LOW/MODER SEVERITY HOSPITAL RADHA - 3 3 [facility]IEN [facility] T EMERGENC[facility] 66451 YEIMI MULLEREY DEPT 3 3 [facility] ISAAC VISIT HIGH SEVERITY& THREAT [facility] RADHA - 3 3 [facility] OUTPATIEN [facility] T EMERGENCY 23472 RADHA 3 3 [facility] T VISIT LOW/MODER SEVERITY EMERGENCY 74083 RAD[facility] 3 3 [facility] T VISIT LOW/MODER SEVERITY EMERGENCY 42107 CHARY DIEZ [address] [facility] T VISIT HIGH/URGE NT SEVERITY HOSPITAL RADHA - 3 3 [facility] OUTPATIEN [facility] T EMERGENCY 44098 RAD[facility] 3 3 [facility] T VISIT MODERATE SEVERITY EMERGENCY 60338 YEIMI MULLEREY 3 3 [facility] DEPARTMEN T VISIT HIGH/URGE NT SEVERITY HOSPITAL RADHA - 3 3 [facility]PATI[facility] - 3 3 [facility] INPATIENT INC OFFICE 83573 WENDY NGUYEN CONSULTAT 3 3 [facility]EL[facility] NEW/ESTAB PATIENT 60 MIN HOSPITAL RADHA - 3 3 [facility] OUTPATIEN INC T EMERGENCY 57938 RADHA 3 3 [facility] T VISIT MODERATE SEVERITY EMERGENCY 06245 MICHAEL RODRIGUEZ DEPT 3 3 III JUAN ANTONIO III JUAN ANTONIO VISIT HIGH SEVERITY& THREAT [facility] RADHA - 3 3 [facility] 15384 YARA ANT YARA ANT OUTPATIEN 3 3 T VISIT 15 MINUTES HOSPITAL [facility] - 2 2 [facility]ERG[facility] 31717 LIAM RAPP DEPT 2 2 EMERGENCY VISIT SERVICES HIGH SEVERITY& THREAT [facility] EMERGENCY 08357 RADHA 2 2 [facility] T VISIT HIGH/URGE NT SEVERITY OFFICE 22409 RIGOBERTO FRANKLIN OUTPATIEN 2 2 [facility] T VISIT 15 MINUTES HOSPITAL RADHA - 2 2 [facility] 91037 YARA ANT YARA ANT OUTPATIEN 2 2 T VISIT 25 MINUTES EMERGENCY 65572 RAD[facility] 2 2 [facility] T VISIT MODERATE SEVERITY EMERGENCY 17193 YEIMI YEIMI [address] [facility] T VISIT HIGH/URGE NT SEVERITY HOSPITAL RADHA - 2 2 [facility] 2 2 [facility] [facility] [address]I [address] [facility] T VISIT HIGH/URGE NT SEVERITY EMERGENCY 73896 RADHA 2 2 [facility] T VISIT LOW/MODER SEVERITY HOSPITAL RADHA - 2 2 [facility]HA [facility] 2 2 [facility] 47945 YARA ANT YARA ANT OUTPATIEN 2 2 T VISIT 25 MINUTES HOSPITAL RADHA - 2 2 [facility] OUTPATIEN INC T EMERGENCY 45900 MICHAEL RODRIGUEZ 2 2 III JUAN ANTONIO III JUAN ANTONIO DEPARTMEN T VISIT HIGH/URGE NT SEVERITY HOSPITAL RADHA - 2 2 [facility] OUTPATIEN INC T HOSPITAL RADHA - 2 2 [facility] OUTPATIEN INC T EMERGENCY 40250 RADHA 2 2 [facility] DEPARTMEN INC T VISIT HIGH/URGE NT SEVERITY EMERGENCY 69707 MICHAEL RODRIGUEZ DEPT 2 2 III JUAN ANTONIO III JUAN ANTONIO VISIT HIGH SEVERITY& THREAT [facility]J EMERGENCY 66237 RADHA 2 2 [facility] DEPARTMEN INC T VISIT MODERATE SEVERITY EMERGENCY 12448 LIAM JALLOH DEPT 2 2 EMERGENCY ISAAC VISIT SERVICES HIGH SEVERITY& THREAT [facility]PITAL RADHA - 2 2 [facility] OUTPATIEN INC T OFFICE 03187 RIGOBERTO FRANKLIN OUTPATIEN 2 2 LEE ANN LEE ANN T VISIT 15 MINUTES EMERGENCY 10551 LIAM JALLOH 2 2 EMERGENCY [facility] DEPARTMEN SERVICES T VISIT HIGH/URGE NT SEVERITY EMERGENCY 23508 RADHA 2 2 [facility] DEPARTMEN INC T VISIT MODERATE SEVERITY HOSPITAL RADHA - 2 2 [facility] OUTPATIEN INC T EMERGENCY 05466 LIAM JALLOH 2 2 EMERGENCY [facility] DEPARTMEN SERVICES T VISIT HIGH/URGE NT SEVERITY HOSPITAL RADHA - 2 2 [facility] OUTPATIEN INC T EMERGENCY 47170 RADHA 2 2 [facility] DEPARTMEN INC T VISIT LIMITED/M INOR PROB EMERGENCY 60072 LIAM JALLOH 2 2 EMERGENCY [facility] DEPARTMEN SERVICES T VISIT HIGH/URGE NT SEVERITY EMERGENCY 52751 [facility] 2 2 [facility] T VISIT MODERATE SEVERITY [facility]OSPITAL [facility] - 2 2 [facility] T OFFICE 34647 ABHINAVEFRAIN FRANKLIN OUTPATIEN 2 2 LEE ANN LEE ANN T VISIT 15 MINUTES EMERGENCY 71323 [facility] 2 2 [facility] DEPARTMEN INC T VISIT LOW/MODER SEVERITY HOSPITAL RAD[facility] - 2 2 [facility] OUTPAT[facility] INC T EMERGENCY 79350 LIAM RODRIGUEZ 2 2 EMERGENCY III JUAN ANTONIO DEPARTMEN SERVICES T VISIT HIGH/URGE NT SEVERITY OFFICE 74284 RIGOBERTO ACUNAEN 2 2 LEE ANN LEE ANN T VISIT 15 MINUTES HOSPITAL [facility] - 2 2 [facility] INC T EMERGENCY 59405 MICHAEL RODRIGUEZ DEPT 1 1 III JUAN ANTONIO III JUAN ANTONIO VISIT HIGH SEVERITY& THREAT [facility] RADHA - 1 1 [facility] OUTPATIEN INC T EMERGENCY 56877 RADHA 1 1 [facility] DEPARTMEN INC T VISIT HIGH/URGE NT SEVERITY OFFICE 23909 YARA ANT YARA ANT OUTPATIEN 1 1 T VISIT 25 MINUTES HOSPITAL RAD[facility] - 1 1 [facility] - 1 1 [facility] INC T EMERGENCY 79691 RAD[facility] 1 1 [facility] DEPARTMEN INC T VISIT HIGH/URGE NT SEVERITY EMERGENCY 10836 LIAM SPRAGUE DEPT 1 1 EMERGENCY VISIT SERVICES HIGH SEVERITY& TH[facility]AT [facility] 69078 RIGOBERTO ALVARADO 1 1 LEE ANN LEE ANN T VISIT 15 MINUTES EMERGENCY 15750 LIAM TRINH 1 1 EMERGENCY DEPARTMEN SERVICES T VISIT HIGH/URGE NT SEVERITY HOSPITAL [facility] - 1 1 [facility] OUTPATIEN INC T EMERGENCY 48707 RADHA 1 1 [facility] DEPARTMEN INC T VISIT LOW/MODER SEVERITY [facility]OSPITAL [facility] - 1 1 [facility] OUTPATIEN INC T EMERGENCY 86373 RADHA 1 1 [facility] DEPARTMEN INC T VISIT LOW/MODER SEVERITY HOSPITAL [facility] - 1 1 [facility] OUTPATIEN INC T EMERGENCY 71208 LIAM JALLOH 1 1 EMERGENCY [facility] DEPARTMEN SERVICES T VISIT HIGH/URGE NT SEVERITY EMERGENCY 06599 RADHA 1 1 [facility] DEPARTMEN INC T VISIT MODERATE SEVERITY EMERGENCY 99417 LIAM SPRAGUE 1 1 EMERGENCY DEPARTMEN SERVICES T VISIT HIGH/URGE NT SEVERITY HOSPITAL RADHA - 1 1 [facility] OUTPATIEN INC T OFFICE 29739 ANALI YARA [facility] 1 MEDICAL T VISIT SERV 25 FOUNDATIO MINUTES HOSPITAL RADHA - 1 1 [facility] OUTPATIEN INC T EMERGENCY 03723 LIAM RODRIGUEZ DEPT 1 1 EMERGENCY III JUAN ANTONIO VISIT SERVICES HIGH SEVERITY& THREAT FUNCJ EMERGENCY 51445 RADHA 1 1 [facility] DEPARTMEN INC T VISIT HIGH/URGE NT SEVERITY HOSPITAL [facility] - 1 1 [facility] OUTPATIEN INC T EMERGENCY 75406 RAD[facility] 1 1 [facility] DEPARTMEN INC T VISIT HIGH/URGE NT SEVERITY HOSPITAL [facility] - 1 1 [facility] OUTPATIEN INC T EMERGENCY 08554 LIAM JALLOH DEPT 1 1 EMERGENCY ISAAC VISIT SERVICES HIGH SEVERITY& THREAT FUNCJ EMERGENCY 63886 LIAM TRINH 1 1 EMERGENCY DEPARTMEN SERVICES T VISIT HIGH/URGE NT SEVERITY EMERGENCY 62654 RADHA 1 1 [facility] DEPARTMEN INC T VISIT MODERATE SEVERITY HOSPITAL [facility] - 1 1 [facility] OUTPATIEN INC T OFFICE 88426 RIGOBERTO ACUNAEN 1 1 LEE ANN LEE ANN T VISIT 15 MINUTES OFFICE 85050 RIGOBERTO ACUNAEN 1 1 LEE ANN LEE ANN T VISIT 15 MINUTES HOSPITAL RAD[facility] - 1 1 [facility] OUTPATIEN INC T EMERGENCY 00831 LIAM RODRIGUEZ DEPT 1 1 EMERGENCY III JUAN ANTONIO VISIT SERVICES HIGH SEVERITY& THREAT [facility] EMERGENCY 82911 RADHA 1 1 [facility] DEPARTMEN INC T VISIT HIGH/URGE NT SEVERITY OFFICE 53887 RADHA ALVARADO [address] RADHA - 1 1 [facility] OUTPATIEN INC T EMERGENCY 41742 LIAM JALLOH DEPT 1 1 EMERGENCY ISAAC VISIT SERVICES HIGH SEVERITY& THREAT [facility] RADHA - 1 1 [facility] OUTPATIEN INC T EMERGENCY 64357 RADHA 1 1 [facility] DEPARTMEN INC T VISIT LOW/MODER SEVERITY OFFICE 48921 ANALI TO OUTHUBEREN 0 0 MEDICAL T VISIT SERV 25 FOUNDATIO MINUTES EMERGENCY 90203 LIAM JALLOH 0 0 EMERGENCY [facility] DEPARTMEN SERVICES T VISIT HIGH/URGE NT SEVERITY OFFICE 49673 RIGOBERTO CORBINPATIEN 0 0 LEE ANN LEE ANN T VISIT 15 MINUTES OFFICE 96594 RIGOBERTO CORBINPATIEN 0 0 LEE ANN LEE ANN T VISIT 15 MINUTES EMERGENCY 16213 RADHA 0 0 [facility] DEPARTMEN INC T VISIT LIMITED/M INOR PROB EMERGENCY 37326 LIAM JALLOH 0 0 EMERGENCY [facility] DEPARTMEN SERVICES T VISIT HIGH/URGE NT SEVERITY HOSPITAL RAD[facility] - 0 0 [facility] OUTPATIEN INC T OFFICE 91583 RIGOBERTO FRANKLIN OUTPATIEN 0 0 LEE ANN LEE ANN T VISIT 15 MINUTES OFFICE 45234 RIGOBERTO FRANKLIN OUTPATIEN 0 0 LEE ANN LEE ANN T VISIT 15 MINUTES OFFICE 67854 ANALI TO OUTPATIEN 0 0 MEDICAL T VISIT SERV 25 FOUNDATIO MINUTES HOSPITAL RAD[facility] - 0 0 [facility] T [facility] - 0 0 [facility] OUTPAT[facility] INC T EMERGENCY 87370 LIAM JALLOH 0 0 EMERGENCY [facility] DEPARTMEN SERVICES T VISIT HIGH/URGE NT SEVERITY EMERGENCY 62620 RAD[facility] 0 0 [facility] DEPARTMEN INC T VISIT LIMITED/M INOR PROB EMERGENCY 73329 RADHA 0 0 [facility] DEPARTMEN INC T VISIT LIMITED/M INOR PROB EMERGENCY 41645 LIAM JALLOH, 0 0 [facility]ISIT HIGH/URGE ASSOCIATE NT S SEVERITY HOSPITAL RAD[facility] - 0 0 [facility] T OFF[facility] 29909 RIGOBERTO FRANKLIN OUTPATIEN 0 0 MAIRA Bernal T VISIT 15 MINUTES OFFICE 74078 RIGOBERTO FRANKLIN OUTPATIEN 0 0 MAIRA Bernal T VISIT 15 MINUTES EMERGENCY 36850 LIAM JALLOH, 0 0 [facility] T VISIT HIGH/URGE ASSOCIATE NT S SEVERITY EMERGENCY 21057 [facility]HA 0 0 [facility] DEPARTMEN INC T VISIT LOW/MODER SEVERITY [facility]OSPITAL [facility] - 0 0 [facility] OUTPATIEN INC T OFFICE 12292 RIGOBERTO FRANKLIN OUTPATIEN 0 0 MAIRA Bernal T VISIT 15 MINUTES OFFICE 43346 JENNY MORALES 0 0 MEDICAL [facility] T VISIT SERV 25 FOUNDATIO MINUTES OFFICE 41917 RIGOBERTO FRANKLIN OUTPATIEN 0 0 MAIRA Bernal T VISIT 15 MINUTES HOSPITAL [facility] - 0 0 [facility] OUTPATIEN INC T EMERGENCY 35433 [facility] 0 0 [facility] DEPARTMEN INC T VISIT MODERATE SEVERITY EMERGENCY 03270 LIAM RODRIGUEZ DEPT 0 0 EMERGENCY III, VISIT SERVICES [facility] HIGH SEVERITY& ASSOCIATE THREAT S [facility] EMERGENCY 30687 LIAM RODRIGUEZ DEPT 0 0 EMERGENCY III, VISIT SERVICES [facility] SEVERITY& ASSOCIATE THREAT S [facility] RADHA - 0 0 [facility] OUTPATIEN INC T OFFICE 98263 RIGOBERTO FRANKLIN OUTPATIEN 0 0 MAIRA Bernal T VISIT 15 MINUTES HOSPITAL [facility] - 0 0 [facility] OUTPATIEN INC T EMERGENCY 66612 [facility] 0 0 [facility] DEPARTMEN INC T VISIT MODERATE SEVERITY HOSPITAL RAD[facility] - 9 9 [facility] OUTPATIEN INC T OFFICE 72713 RIGOBERTO FRANKLIN OUTPATIEN 9 9 MAIRA Bernal T VISIT 15 MINUTES OFFICE 76224 JENNY MORALES 9 9 MEDICAL [facility] T VISIT SERV 15 FOUNDATIO MINUTES OFFICE 74874 PHYSICIAN JENNY BLOUNT 9 9 S KP Bernal T NEW 30 SERVICES MINUTES [facility] OFFICE 68912 RIGOBERTO FRANKLIN OUTPATIEN 9 9 MAIRA Bernal T VISIT 15 MINUTES EMERGENCY 91029 Kedar SELLERS 9 EMERGENCY [facility] SERVICES T VISIT MODERATE ASSOCIATE SEVERITY S HOSPITAL RADHA - 9 9 [facility] OUTPATIEN INC T OFFICE 64553 JENNY MORALES 9 9 PETRA SIMPSON T VISIT SERV 25 FOUNDATIO MINUTES OFFICE 76601 RIGOBERTO FRANKLIN OUTPATIEN 9 9 MAIRA Bernal T VISIT 15 MINUTES OFFICE 03975 RIGOBERTO FRANKLIN OUTPATIEN 9 9 MAIRA Bernal T VISIT 15 MINUTES HOSPITAL RAD[facility] - 9 9 [facility] OUTPATIEN INC T EMERGENCY 21691 RADHA 9 9 [facility] V[facility]IT LIMITED/M INOR PROB EMERGENCY 07253 LIAM OAKLEY, 9 9 [facility] VISIT HIGH/URGE ASSOCIATE NT S SEVERITY EMERGENCY 63064 LIAM JALLOH, 9 9 [facility] T VISIT MODERATE ASSOCIATE SEVERITY S EMERGENCY 86288 RADHA 9 9 [facility] T VISIT LOW/MODER SEVERITY [facility]OSPITAL RAD[facility] - 9 9 [facility] OUTPATIEN INC T OFFICE 32270 RIGOBERTO FRANKLIN OUTPATIEN 9 9 MAIRA Bernal T VISIT 15 MINUTES OFFICE 91541 SIENNA EL OUTPATIEN 9 9 KP KP T VISIT 25 MINUTES HOSPITAL RAD[facility] - 9 9 [facility] OUTPATIEN INC T OFFICE 45469 RIGOBERTO FRANKLIN OUTPATIEN 9 9 MAIRA Bernal T VISIT 15 MINUTES OFFICE 61755 SIENNA EL CONSULTAT 9 9 KP GOODRICH ION NEW/ESTAB PATIENT 80 MIN HOSPITAL RAD[facility] - 9 9 [facility] OUTPATIEN INC T OFFICE 74911 JENNY MORALES 9 9 MEDICAL CALVIN T VISIT SERV 25 FOUNDATIO MINUTES HOSPITAL RADHA - 9 9 [facility] OUTPATIEN INC T EMERGENCY 71803 LIAM FISHMAN, 9 9 EMERGENCY [facility] DEPARTMEN SERVICES O T VISIT HIGH/URGE ASSOCIATE NT S SEVERITY HOSPITAL [facility] - 9 9 [facility] OUTPATIEN INC T EMERGENCY 59132 RAD[facility] 9 9 [facility] DEPARTMEN INC T VISIT LIMITED/M INOR PROB OFFICE 73257 RIGOBERTO FRANKLIN OUTPATIEN 9 9 MAIRA Bernal T VISIT 15 MINUTES EMERGENCY 61875 LIAM JALLOH, 9 9 EMERGENCY [facility] SERVICES T VISIT MODERATE ASSOCIATE SEVERITY S HOSPITAL RAD[facility] - 9 9 [facility] OUTPATIEN INC T EMERGENCY 19993 RAD[facility] 9 9 [facility] DEPARTMEN INC T VISIT LOW/MODER SEVERITY OFFICE 14882 RIGOBERTO FRANKLIN OUTPATIEN 9 9 MAIRA Bernal T VISIT [address] [facility], 9 9 [facility] EMERGENCY T VISIT PHYS INC HIGH/URGE NT SEVERITY HOSPITAL RAD[facility] - 9 9 [facility] OUTPATIEN INC T EMERGENCY 21923 LIAM CARRION, DEPT 9 9 EMERGENCY [facility] VISIT SERVICES HIGH SEVERITY& ASSOCIATE THREAT S [facility] EMERGENCY 71598 RADHA 9 9 [facility] DEPARTMEN INC T VISIT MODERATE SEVERITY OFFICE 29682 RIGOBERTO FRANKLIN OUTPATIEN 9 9 MAIRA Bernal T VISIT 15 MINUTES OFFICE 70683 JENNY MORALES 9 9 PETRA CALVIN T VISIT SERV 25 FOUNDATIO MINUTES HOSPITAL RAD[facility] - 9 9 [facility] OUTPATIEN INC T OFFICE 43082 RIGOBERTO FRANKLIN OUTPATIEN 9 9 MAIRA Bernal T VISIT 15 MINUTES HOSPITAL [facility] - 9 9 [facility] OUTPATIEN INC T EMERGENCY 84476 [facility] 9 9 [facility] DEPARTMEN INC T VISIT LOW/MODER SEVERITY EMERGENCY 24095 LIAM OAKLEY, 9 9 EMERGENCY JUDAH P DEPARTMEN SERVICES T VISIT MODERATE ASSOCIATE SEVERITY S HOSPITAL [facility] - 9 9 [facility] OUTPATIEN INC T OFFICE 73752 RIGOBERTO FRANKLIN OUTPATIEN 9 9 MAIRA Bernal T VISIT 15 MINUTES HOSPITAL [facility] - 9 9 [facility] EMERGENCY 07894 MARLEN COOPER DEPT 9 9 [facility] [place] VISIT EMERGENCY HIGH PHYS INC SEVERITY& THREAT FUNCJ OFFICE 25046 RIGOBERTO FRANKLIN OUTPATIEN 9 9 MAIRA Bernal T VISIT 15 MINUTES HOSPITAL [facility] - 9 9 [facility] OUTPATIEN INC T EMERGENCY 75657 LIAM JALLOH, 9 9 EMERGENCY SARAH S DEPARTMEN SERVICES T VISIT HIGH/URGE ASSOCIATE NT S SEVERITY EMERGENCY 71122 [facility] 9 9 [facility] DEPARTMEN INC T VISIT LOW/MODER SEVERITY OFFICE 23151 RIGOBERTO FRANKLIN OUTPATIEN 9 9 MAIRA Bernal T VISIT 15 MINUTES HOSPITAL RAD[facility] - 9 9 [facility] OUTPATIEN INC T EMERGENCY 37458 LIAM OAKLEY DEPT 9 9 EMERGENCY JUDAH P VISIT SERVICES HIGH SEVERITY& ASSOCIATE THREAT S [facility] EMERGENCY 74899 RAD[facility] 9 9 [facility] DEPARTMEN INC T VISIT HIGH/URGE NT SEVERITY OFFICE 58593 RIGOBERTO FRANKLIN OUTPATIEN 9 9 MAIRA Bernal T VISIT 15 MINUTES EMERGENCY 69844 RADHA 9 9 [facility] DEPARTMEN INC T VISIT LOW/MODER SEVERITY HOSPITAL RADHA - 9 9 [facility] OUTPATIEN INC T EMERGENCY 92870 JOSE JALLOH, 9 9 [facility] T VISIT ON HIGH/URGE NT SEVERITY OFFICE 45289 WOMEN'S DELCID, CONSULTAT 9 9 [facility] NEW/ESTAB PATIENT RIKKI 60 MIN [facility] EMERGENCY 95422 MARLEN GERMAN DEPT 9 9 [facility] [place] VISIT EMERGENCY HIGH PHYS INC SEVERITY& THREAT FUNCJ OFFICE 81166 RIGOBERTO FRANKLIN OUTPATIEN 9 9 MAIRA Bernal T VISIT 15 MINUTES EMERGENCY 82802 JOSE JALLOH, 9 9 [facility] T VISIT ON LOW/MODER SEVERITY HOSPITAL RADHA - 9 9 [facility] OUTPATIEN INC T EMERGENCY 19917 RADHA 9 9 [facility] DEPARTMEN INC T VISIT LIMITED/M INOR PROB OFFICE 48965 RIGOBERTO FRANKLIN OUTPATIEN 9 9 MAIRA Bernal T VISIT 15 MINUTES EMERGENCY 31002 RADHA 9 9 [facility] DEPARTMEN INC T VISIT LOW/MODER SEVERITY EMERGENCY 23904 JOSE JALLOH, 9 9 [facility] VISIT ON MODERATE SEVERITY HOSPITAL RADHA - 9 9 [facility] OUTPATIEN INC T OFFICE 08519 RIGOBERTO FRANKLIN OUTPATIEN 9 9 MAIRA Bernal T VISIT 15 MINUTES EMERGENCY 56563 MARLEN VENTURA DEPT 9 9 [facility] Wolfe VISIT EMERGENCY HIGH PHYS INC SEVERITY& THREAT [facility] EMERGENCY 79613 RADHA 9 9 [facility] DEPARTMEN INC T VISIT LIMITED/M INOR PROB EMERGENCY 04662 JOSE JALLOH, 9 9 [facility] T VISIT ON MODERATE SEVERITY HOSPITAL RADHA - 9 9 [facility] OUTPATIEN INC T OFFICE 99414 RIGOBERTO FRANKLIN OUTPATIEN 8 8 MAIRA Bernal T VISIT 15 MINUTES OFFICE 44341 RIGOBERTO FRANKLIN OUTPATIEN 8 8 MAIRA Bernal T VISIT 15 MINUTES OFFICE 07751 JENNY MORALES 8 8 MEDICAL [facility] T VISIT SERV 15 FOUNDATIO MINUTES HOSPITAL RADHA - 8 8 [facility] OUTPATIEN INC T OFFICE 28269 RIGOBERTO FRANKLIN OUTPATIEN 8 8 MAIRA RAO W T VISIT 15 MINUTES OFFICE 41935 RIGOBERTO FRANKLIN OUTPATIEN 8 8 MAIRA RAO W T VISIT 15 MINUTES OFFICE 52969 WENDY CORBINPATIBROOKE 8 8 , CALEB ELLIS T VISIT 15 MINUTES HOSPITAL RAD[facility] - 8 8 [facility] OUTPATIEN INC T OFFICE 04621 WENDY NGUYEN CONSULTAT 8 8 , CALEB ELLIS ION NEW/ESTAB PATIENT 60 MIN OFFICE 50835 RIGOBERTO FRANKLIN OUTPATIEN 8 8 MAIRA Bernal T VISIT 15 MINUTES HOSPITAL RAD[facility] - 8 8 [facility] OUTPATIEN INC T EMERGENCY 64486 [facility] 8 8 [facility] DEPARTMEN INC T VISIT HIGH/URGE NT SEVERITY OFFICE 00131 JENNY MORALES 8 8 MEDICAL CAL[facility]IN T VISIT SERV 25 FOUNDATIO MINUTES OFFICE 53351 RIGOBERTO FRANKLIN OUTPATIEN 8 8 MAIRA Bernal T VISIT 15 MINUTES OFFICE 93141 RIGOBERTO FRANKLIN OUTPATIEN 8 8 MAIRA Bernal T VISIT 15 MINUTES HOSPITAL [facility] - 8 8 [facility] OUTPATIEN INC T EMERGENCY 43377 [facility] 8 8 [facility] DEPARTMEN INC T VISIT LIMITED/M INOR PROB OFFICE 72952 RIGOBERTO FRANKLIN OUTPATIEN 8 8 MAIRA Bernal T VISIT 15 MINUTES OFFICE 12912 JENNY MORALES 8 8 MEDICAL CALVIN T VISIT SERV 25 FOUNDATIO MINUTES EMERGENCY 65474 UNIVERSIT DEPT 8 8 Y VISIT HOSPITAL HIGH SEVERITY& THREAT [facility]ERS[facility] - 8 [facility] T [facility]ER[facility] 55492 ANALI RYAN, 8 8 [facility] T DEPARTMEN SERV T VISIT FOUNDATIO HIGH/URGE NT SEVERITY OFFICE 93951 RIGOBERTO FRANKLIN OUTPATIEN 8 8 MAIRA Bernal T VISIT 15 MINUTES EMERGENCY 79909 RAD[facility] 8 8 [facility] DEPARTMEN INC T VISIT LIMITED/M INOR PROB HOSPITAL [facility] - 8 8 [facility] OUTPATIEN INC T [facility] - 8 8 [facility]PAT[facility]EN INC T [facility] - 8 8 [facility] OUTPATIEN INC T EMERGENCY 51415 [facility] 8 8 [facility] DEPARTMEN INC T VISIT MODERATE SEVERITY HOSPITAL [facility] - 8 8 [facility] OUTPATIEN INC T EMERGENCY 02070 JOSE CARRION, 8 8 [facility] T VISIT ON HIGH/URGE NT SEVERITY HOSPITAL [facility] - 8 8 [facility] OUTPATIEN INC T EMERGENCY 54072 RAD[facility] 8 8 [facility] DEPARTMEN INC T VISIT HIGH/URGE NT SEVERITY OFFICE 86643 JENNY MORALES 8 8 MEDICAL [facility] T VISIT SERV 15 FOUNDATIO MINUTES OFFICE 11017 RIGOBERTO FRANKLIN OUTPATIEN 8 8 MAIRA Bernal T VISIT 15 MINUTES HOSPITAL RAD[facility] - 8 8 [facility] OUTPATIEN INC T EMERGENCY 24280 RAD[facility] 8 8 [facility] DEPARTMEN INC T VISIT LIMITED/M INOR PROB HOSPITAL RADHA - 8 8 [facility] OUTPATIEN INC T EMERGENCY 80700 RAD[facility] 8 8 [facility] DEPARTMEN INC T VISIT LOW/MODER SEVERITY OFFICE 18184 JENNY MORALES 8 8 MEDICAL [facility] T VISIT SERV 25 FOUNDATIO MINUTES HOSPITAL RAD[facility] - 8 8 [facility] OUTPATIEN INC T EMERGENCY 41001 RAD[facility] 8 8 [facility] DEPARTMEN INC T VISIT LOW/MODER SEVERITY HOSPITAL RAD[facility] - 8 8 [facility] OUTPATIEN INC T OFFICE 38251 [facility] 8 , CALEB ELLIS ION NEW/ESTAB PATIENT 30 MIN EMERGENCY 26991 RAD[facility] 8 8 [facility] DEPARTMEN INC T VISIT LOW/MODER SEVERITY HOSPITAL RAD[facility] - 8 8 [facility] OUTPATIEN INC T HOSPITAL [facility] - 8 8 [facility] OUTPATIEN INC T EMERGENCY 41992 RAD[facility] 8 8 [facility] DEPARTMEN INC T VISIT LOW/MODER SEVERITY OFFICE 82305 RIGOBERTO FRANKLIN OUTPATIEN 8 8 MAIRA Bernal T VISIT 15 MINUTES HOSPITAL [facility] - 8 8 [facility] OUTPATIEN INC T EMERGENCY 24408 [facility] 8 8 [facility] DEPARTMEN INC T VISIT LIMITED/M INOR PROB OFFICE 40523 YARA LIVING[place]ON OUTPATIEN 8 8 CALVIN CALVIN T VISIT 25 MINUTES HOSPITAL [facility] - 8 8 [facility] OUTPATIEN INC T EMERGENCY 54162 [facility] 8 8 [facility] DEPARTMEN INC T VISIT LOW/MODER SEVERITY HOSPITAL RAD[facility] - 8 8 [facility] OUTPATIEN INC T OFFICE 99194 JENNY MORALES 8 8 [facility] T VISIT SERV 15 FOUNDATIO MINUTES EMERGENCY 93173 RAD[facility] 8 8 [facility] T VISIT LIMITED/M INOR PROB HOSPITAL RAD[facility] - 8 8 [facility]EN [facility] T OFFICE 78641 RIGOBERTO FRANKLIN OUTPATIEN 8 8 MAIRA RAO W T NEW 30 MINUTES EMERGENCY 97723 RADHA GILLIAM, 8 8 [facility] T VISIT PROF SERV MODERATE SEVERITY EMERGENCY 47235 RAD[facility] 8 8 [facility] T VISIT LOW/MODER SEVERITY HOSPITAL RAD[facility] - 8 8 [facility] OUTPAT[facility]EN [facility] T HOSPITAL RAD[facility] 8 8 [facility] OUTPATIEN INC T EMERGENCY 62247 [facility] 8 8 [facility] T VISIT LOW/MODER SEVERITY EMERGENCY 61820 RADHA GILLIAM[facility] 8 8 [facility] T VISIT PROF SERV MODERATE SEVERITY HOSPITAL RAD[facility] - 8 8 [facility] T EMERGENCY [id number] RADHA 8 8 [facility] T VISIT LOW/MODER SEVERITY OFFICE [id number] JENNY MORALES 8 8 [facility] T VISIT SERV 25 [facility] MIN[facility] RADHA - Donn 8 [facility] OUT[facility] INC T EMERGENCY 08948 RADHA CARRION, 8 8 [facility] T VISIT PROF SERV MODERATE SEVERITY [facility] RADHA - 8 8 [facility] OUTPATIEN INC T
--- OUTSIDE RECORDS SUMMARY | 2016-09-15 15:30 | External Medical Summary Rpt ---
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 [address]/DAY 35 PHYSICIAN MINUTES S CRITICAL 93436 [facility] 7 SHARRON ILL/INJUR ED PHYSICIAN PATIENT S INIT 30-74 MIN RADIOLOGI 23413 RADIOLOGY [place]fe 7 EXAMINATI ASSOCIATE ON CHEST S OF NOTH SINGLE VIEW FRONTAL CRITICAL 71821 [facility] 7 SHARRON ILL/INJUR ED PHYSICIAN PATIENT S INIT 30-74 MIN SBSQ [address]/DAY 35 PHYSICIAN MINUTES S SBSQ [address]/DAY 35 PHYSICIAN MINUTES S CRITICAL 85983 [facility] 7 SHARRON ILL/INJUR ED PHYSICIAN PATIENT S INIT 30-74 MIN CRITICAL 14760 [facility] 7 SH[place]ON ILL/INJUR ED PHYSICIAN PATIENT S INIT 30-74 MIN RADIOLOGI 75844 RADIOLOGY GELY C 7 EXAMINATI ASSOCIATE ON [place] [address] RADIOLOGY [place] ANGIOGRAP 7 III HY CHEST ASSOCIATE W/CONTRAS S OF NOTH T/NONCONT RAST ECG 10052 [facility] ROUTINE 7 SH[facility]ON ECG W/LEAST PHYSICIAN 12 LDS S EKG I&R ONLY [facility] 03-17-[address] [facility] 7 [place] OUS/FASCI OCUTANEOU PHYSICIAN S FLAP S TRUNK ANES LWR 21010 ANESTHESI CHASE ABD 7 A GROUP VENTRAL & PRACTICE INCISIONA L HERNIA REPAIR RPR RECRT [address]29 [facility] 7 [place] INCAL/VNT HERNIA PHYSICIAN REDUCIBLE S IMPLANT 62061 [facility] 7 [place] HERNIA RPR/DEBRI [place] S[place]X [address] ANESTHESI WEN DX/THER 7 A GROUP SBST PRACTICE INTRLMNR CRV/THRC W/[place] [address] [address] [facility] SURG 7 [facility] [place] [address] [facility] IS[facility] SURG 7 [facility] GROSS&ISAAC ROSCOPIC EXAM COLONOSCO 34647 [facility] P[facility] 7 [place] W/BIOPSY SINGLE/MU PHYSICIAN LTIPLE S EGD [address] [facility] TRANSORAL 7 [place] BIOPSY SINGLE/MU PHYSICIAN LTIPLE S ANES 34956 ANESTHESI RANDY LOWER 7 A GROUP INTESTINE PRACTICE ENDOSCOPY DISTAL DUODENUM C-REACTIV 46332 [facility] E PROTEIN 6 [facility] CTR MED CTR [place] [address] RADIOLOGY KLEIMEYER ABDOMEN & 6 KERLINE PELVIS ASSOCIATE W/CONTRAS S OF NOTH T MATERIAL ADMN SET A7003 YOUR YOUR SM VOL 6 PHARMACY PHARMACY [facility] [place] [address] RADHA GARCIA INFUSION 6 [facility] THERAPY/P INC INC ROPHYLAXI S /DX 1ST TO 1 HR COMPREHEN 46224 RADHA GARCIA SIVE 6 [facility] METABOLIC INC INC PANEL C-REACTIV 31944 RADHA GARCIA E PROTEIN 6 [facility] INC INC BLOOD 65936 RADHA GARCIA COUNT 6 [facility] COMPLETE INC INC AUTO&AUTO DIFRNTL WBC RADIOLOGI 79974 [facility] C EXAM 6 MEDICAL CHEST 2 IMAGING VIEWS ASS FRONTAL&L ATERAL COMPREHEN 14828 RADHA GARCIA SIVE 6 [facility] METABOLIC INC INC PANEL THERAPEUT 69995 RADHA GARCIA IC 6 [facility] INJECTION INC INC IV PUSH EACH NEW DRUG THER 12926 RADHA GARCIA PROPH/DX 6 [facility] NJX IV INC INC PUSH SINGLE/1S T SBST/DRUG URNLS DIP 33447 RADHA GARCIA 6 [facility] STICK/TAB INC [place] [address] RADHA GARCIA ABDOMEN & 6 [facility] PELVIS INC INC W/O CONTRAST MATERIAL BLOOD 47703 RADHA GARCIA COUNT 6 [facility] COMPLETE INC INC AUTO&AUTO DIFRNTL WBC CULTURE 74411 RADHA GARCIA BACTERIAL 6 [facility] INC INC QUANTTATI VE COLONY COUNT URINE RADEX 08749 [facility] SPINE 6 MEDICAL SANDRA LUMBOSACR IMAGING AL ASS MINIMUM 4 VIEWS COMPREHEN 49239 RADHA GARCIA SIVE 6 [facility] METABOLIC INC INC PANEL C-REACTIV 59090 RADHA GARCIA E PROTEIN 6 [facility] INC INC CHEMOTX 62490 RADHA GARCIA ADMN IV 6 [facility] NFS TQ UP INC INC 1 HR 1/ SBST/DRUG BLOOD 85633 RADHA GARCIA COUNT 6 [facility] COMPLETE INC INC AUTO&AUTO DIFRNTL WBC INJECTION J3380 RADHA GARCIA 6 [facility] VEDOLIZUM INC INC AB 1 MG THERAPEUT 18067 RADHA GARCIA IC 6 [facility] PROPHYLAC INC INC TIC/DX INJECTION SUBQ/IM AMBULANCE A0429 [facility] SERVICE 6 AMBULANCE AMBULANCE BLS SERVICE SERVICE EMERGENCY TRANSPORT GROUND A0425 [facility] MILEAGE 6 AMBULANCE AMBULANCE PER SERVICE SERVICE STATUTE MILE THERAPEUT 34001 [facility] SHAUN IC 6 PHYSICIAN STONE PROPHYLAC S GROUP ZUHAIR DUVAL TIC/DX INJECTION SUBQ/IM ADMN SET A7003 YOUR YOUR SM VOL 6 [facility]AC[facility] PNE[facility]AT NEBULIZR DISPBL THERAPEUT 53101 [facility] IC 6 PHYSICIAN PHYSICIAN PROPHYLAC S GROUP S GROUP TIC/DX INJECTION SUBQ/IM COMPREHEN 09879 RADHA GARCIA SIVE 6 [facility] METABOLIC INC INC PANEL INJECTION J3380 RADHA RADHA 6 [facility] VEDOLIZUM INC INC AB 1 MG BLOOD 07546 RADHA RADHA COUNT 6 [facility] COMPLETE INC INC AUTO&AUTO DIFRNTL WBC CHEMOTX 81098 RADHA GARCIA ADMN IV 6 [facility] NFS TQ UP INC INC 1 HR / SBST/DRUG C-REACTIV 37013 RADHA GARCIA E PROTEIN 6 [facility] INC INC ADMN SET A7003 YOUR YOUR SM VOL 6 [facility] PNEUMAT NEBULIZR DISPBL RADEX ABD 19482 [place] [facility] COMPL 6 MEDICAL AQT ABD IMAGING W/S/E/D ASS VIEWS 1 VIEW BLOOD 97946 RADHA RADHA COUNT 6 [facility] COMPLETE INC INC AUTO&AUTO DIFRNTL WBC [place] 08159 RADHA GARCIA ADMN IV 6 [facility] NFS TQ UP INC INC 1 HR / SBST/DRUG INJECTION J3380 RADHA RADHA 6 [facility] VEDOLIZUM INC INC AB 1 MG C-REACTIV 79397 RADHA GARCIA E PROTEIN 6 [facility] INC INC COMPREHEN 59188 RADHA GARCIA SIVE 6 [facility] METABOLIC INC INC PANEL COMPREHEN 50550 [facility] GARCIA SIVE 6 [facility] [place] [address] RADHA GARCIA INFUSION 6 [facility] THERAPY/P INC INC ROPHYLAXI S /DX 1ST TO 1 HR C-REACTIV 37286 RADHA GARCIA E PROTEIN 6 [facility] INC INC INJECTION J3380 RADHA RADHA 6 [facility] VEDOLIZUM INC INC AB 1 MG BLOOD 22308 RADHA GARCIA COUNT 6 [facility] COMPLETE INC INC AUTO&AUTO DIFRNTL WBC [place] 82289 RADHA GARCIA ADMN IV 5 [facility] NFS TQ UP INC INC 1 HR SBST/DRUG BLOOD 70449 RADHA GARCIA COUNT 5 [facility] COMPLETE INC INC AUTO&AUTO DIFRNTL WBC INJECTION C9026 RADHA GARCIA 5 [facility] VEDOLIZUM INC INC AB 1 MG C-REACTIV 69184 RADHA GARCIA E PROTEIN 5 [facility] INC INC COMPREHEN 45106 RADHA GARCIA SIVE 5 [facility] METABOLIC INC INC PANEL COMPREHEN 58495 [facility] GARCIA SIVE 5 [facility] METABOLIC INC INC PANEL COLLECTIO 30779 RADHA GARCIA N VENOUS 5 [facility] BLOOD INC INC VENIPUNCT URE 25 42439 RADHA GARCIA HYDROXY 5 [facility] INCLUDES INC INC FRACTIONS IF PERFORMED CYANOCOBA 05764 RADHA GARCIA JAKOB 5 [facility] VITAMIN INC INC B-12 C-REACTIV 20596 RADHA GARCIA E PROTEIN 5 [facility] INC INC PROTHROMB 74062 RADHA GARCIA IN TIME 5 [facility] INC INC TB CELL 13318 RADHA GARCIA MEDIATED 5 [facility] ANTIGN INC INC RESPNSE GAMMA INTERFERO N BLOOD 14628 RADHA GARCIA COUNT 5 [facility] COMPLETE INC INC AUTO&AUTO DIFRNTL WBC RADEX 16913 RADHA GARCIA SPINE 5 [facility] CERVICAL INC INC 4 OR 5 VIEWS COMPREHEN 31741 RAD[facility] GARCIA SIVE 5 [facility] METABOLIC INC INC PANEL NATRIURET 46294 RADHA GARCIA IC 5 [facility] PEPTIDE INC INC PRESSURIZ 21476 RADHA GARCIA ED/NONPRE 5 [facility] SSURIZED INC INC INHALATIO N TREATMENT BLOOD 20506 RADHA RADHA COUNT 5 [facility] COMPLETE INC INC AUTO&[place] [address] RADHA [facility] TROPONIN 5 [facility] QUANTITAT INC INC ANIYAH ECG 88425 TAMIKA LUNDBERG ROUTINE 5 REJI REJI ECG W/LEAST 12 LDS I&R ONLY ECG 97077 RADHA RADHA ROUTINE 5 [facility] ECG INC INC W/LEAST 12 LDS TRCG ONLY W/O I&R RADIOLOGI 69537 RADHA GARCIA C 5 [facility] EXAMINATI INC INC ON CHEST SINGLE VIEW FRONTAL ADMN SET A7003 YOUR YOUR SM VOL 5 PHARMACY [facility] PNEUMAT NEBULIZR DISPBL NEBULIZER E0570 [facility] BLOOM WITH 5 HOME HOME COMPRESSO MEDICAL MEDICAL R EQUIPME EQUIPME THERAPEUT 10568 [facility] IC 5 PHYSICIAN ISAAC PROPHYLAC S GROUP TIC/DX INJECTION SUBQ/IM PRESSURIZ 19775 [facility] ED/NONPRE 5 PHYSICIAN ISAAC SSURIZED S GROUP INHALATIO N TREATMENT INJECTION J1040 [facility] 5 PHYSICIAN ISAAC METHYLPRE S GROUP DNISOLONE ACETATE 80 MG RADIOLOGI 90401 [facility] C EXAM 5 MEDICAL CHEST 2 IMAGING VIEWS ASS FRONTAL&L ATERAL EGD 74521 RADHA GARCIA TRANSORAL 5 [facility] BIOPSY INC INC SINGLE/MU LTIPLE COLONOSCO 91216 [facility]NA[facility] LOCO PY 5 MEDICAL KERLINE W/BIOPSY SERV SINGLE/MU FOUNDATIO LTIPLE N UNCLASSIF J3490 RADHA GARCIA IED DRUGS 5 [place] [address] [facility], SURG 5 [facility] PATHOLOGY GROSS&ISAAC ROSCOPIC EXAM RADIOLOGI 90576 [facility] C EXAM 5 MEDICAL SAN[facility]A CHEST 2 IMAGING VIEWS ASS FRONTAL&L ATERAL COLLECTIO 48057 [facility] N VENOUS 5 PHYSICIAN ISAAC BLOOD S GROUP VENIPUNCT URE COMPREHEN 95105 RADHA RADHA SIVE 5 [facility] METABOLIC INC INC PANEL 25 56794 RADHA GARCIA HYDROXY 5 [facility] INCLUDES INC INC FRACTIONS IF PERFORMED THERAPEUT 47023 [facility] YEIMI IC 5 PHYSICIAN ISAAC PROPHYLAC S GROUP TIC/DX INJECTION SUBQ/[place] [address] RADHA GARCIA THYROXINE 5 [facility] TOTAL INC INC MICROSOMA 56106 RADHA THOMASON L 5 [facility] [place] [address] RADHA GARCIA THYROID 5 [facility] STIMULAT[place] [address] RADHA GARCIA TRIIODOTH 5 [facility] YRONINE INC INC T3 FREE RADIOLOGI 49195 [facility] C EXAM 5 MEDICAL SANDRA CHEST 2 IMAGING VIEWS ASS FRONTAL&L ATERAL COLLECTIO 74866 RADHA GARCIA N VENOUS 5 [facility] BLOOD INC INC VENIPUNCT URE COMPREHEN 57427 RADHA GARCIA SIVE 5 [facility] [address] RADHA GARCIA IRON 5 [facility] INC INC IRON 18218 RADHA GARCIA BINDING 5 [facility] CAPACITY INC INC CYANOCOBA 18759 RADHA GARCIA JAKOB 5 [facility] VITAMIN INC INC B-12 25 84342 RADHA GARCIA HYDROXY 5 [facility] INCLUDES INC INC FRACTIONS IF PERFORMED BLOOD 28032 RADHA GARCIA COUNT 5 [facility] COMPLETE INC INC AUTO&AUTO DIFRNTL WBC C-REACTIV 94538 RADHA GARCIA E PROTEIN 5 [facility] INC INC RADEX 39545 [place] [facility] ABDOMEN 1 5 MEDICAL ROM IMAGING ANTEROPOS ASS TERIOR VIEW RADEX 05064 RAD[facility] GARCIA ABDOMEN 5 [facility] COMPL INC INC W/DCBTS&/ ERC VIEWS OPHTH 80401 SCIFRES SCIFRES MEDICAL 5 ANG ANG XM&EVAL COMPRE NEW PT 1/> [place] [address] RADHA GARCIA FREE 5 [facility] [place] [address] RADHA GARCIA THYROID 5 [facility] STIMULATI INC INC NG HORMONE TSH BLOOD 52699 RADHA GARCIA COUNT 5 [facility] COMPLETE INC INC AUTO&AUTO DIFRNTL WBC 25 43867 RADHA GARCIA HYDROXY 5 [facility] INCLUDES INC INC FRACTIONS IF PERFORMED COMPREHEN 18213 RADHA GARCIA SIVE 5 [facility] METABOLIC INC INC PANEL RADIOLOGI 03952 RADHA GARCIA C EXAM 4 [facility] CHEST 2 INC INC VIEWS FRONTAL&L ATERAL IAADI 91637 RADHA GARCIA INFLUENZA 4 [facility] B VIRUS INC INC IAADI 74712 RADHA GARCIA INFFLUENZ 4 [facility] A A VIRUS INC INC HOSPITAL 07008 [facility] DISCHARGE 4 PHYSICIAN ISAAC DAY S GROUP MANAGEMEN T 30 MIN/< SBSQ 59968 [facility] 4 PHYSICIAN ISAAC CARE/DAY S GROUP 15 MINUTES INITIAL 32180 [facility] 4 PHYSICIAN ISAAC CARE/DAY S GROUP 50 MINUTES ECG 61819 TASHIA LAO JR ROUTINE 4 DWI DWI ECG W/LEAST 12 LDS I&R ONLY RADIOLOGI 56896 [facility] 4 MEDICAL SAN[facility]A EXAMINATI IMAGING ON CHEST ASS SINGLE VIEW FRONTAL CT THORAX 11163 [place] [facility]SE 4 MEDICAL SANDRA W/[place] [address] RADHA GARCIA INFUSION 4 [facility] THERAPY/P INC INC ROPHYLAXI S /DX 1ST TO 1 HR THERAPEUT 12119 RADHA GARCIA IC 4 [facility] INJECTION INC INC IV PUSH EACH NEW DRUG COMPREHEN 25195 RADHA GARCIA SIVE 4 [facility] METABOLIC INC INC PANEL BLOOD 01448 RADHA GARCIA COUNT 4 [facility] COMPLETE INC INC AUTO&AUTO DIFRNTL WBC RADEX ABD 96147 [place] [facility] COMPL 4 MEDICAL ROM AQT ABD IMAGING W/S/E/D ASS VIEWS 1 VIEW CH BLOOD 36783 [facility] COUNT 4 Y Y COMPLETE [facility] AUTO&AUTO DIFRNTL WBC C-REACTIV 20596 [facility] E PROTEIN 4 Y Y HOSPITAL HOSPITAL TB CELL 82917 [facility] MEDIATED 4 Y Y ANTIGN HOSP[facility] RESPNSE GAMMA INTERFERO N COMPREHEN 92219 [facility] SIVE 4 Y Y METABOLIC [facility] PANEL COLLECTIO 29047 [facility] N VENOUS 4 Y Y BLOOD [facility] VENIPUNCT URE NZYM 71891 [facility] ACTIV BLD 4 Y Y [facility] CELLS/TIS S NONRADACT SUBSTRATE EA 25 89022 [facility] HYDROXY 4 Y Y INCLUDES HOSPITAL HOSPITAL FRACTIONS IF PERFORMED CYANOCOBA 86745 [facility] JAKOB 4 Y Y VITAMIN [facility] B-12 [place] [address] [facility] FERRITIN 4 Y Y HOSPITAL [facility] IRON 51908 [facility] BINDING 4 Y Y CAPACITY [facility] RADIOLOGI 24786 [place] [facility] C EXAM 4 MEDICAL ROM CHEST 2 IMAGING VIEWS ASS FRONTAL&[place] [address] RADHA GARCIA TRACT UPR 4 [facility] W/SM INT [place] [address] [facility] UPR W/WO 4 MEDICAL [facility] GLUCOSE IMAGING W/SM ASS INTEST FOLLW-THR U BASIC 92882 RADHA GARCIA METABOLIC 4 [facility] PANEL INC INC CALCIUM TOTAL RADEX 63436 [facility] ABDOMEN 4 MEDICAL ROM COMPL IMAGING W/DCBTS&/ [place] [address] [facility] ABDOMEN & 4 MEDICAL ROM PELVIS IMAGING W/[place] [address] [facility] ABDOMEN & 4 MEDICAL ROM PELVIS IMAGING W/O ASS CONTRAST MATERIAL GROUND A0425 [facility] AMBULANCE PER SERVICE SERVICE STATUTE MILE AMBULANCE A0429 [facility] SERVICE 4 AMBULANCE AMBULANCE BLS SERVICE SERVICE EMERGENCY TRANSPORT RADEX 53156 [place] [facility] SPINE 4 MEDICAL [facility] LUMBOSACR IMAGING AL ASS MINIMUM 4 VIEWS RADEX ABD 01328 [facility] COMPL 4 ROM ROM AQT ABD W/S/E/D VIEWS 1 VIEW CH ECG 98690 MCKEMIE MCKEMIE ROUTINE 3 JR JUAN ANTONIO JR JUAN ANTONIO ECG W/LEAST 12 LDS I&R ONLY RADEX 98244 [facility] ABDOMEN 1 3 ROM ROM ANTEROPOS TERIOR VIEW ANES 43747 VILLAR VILLAR INTRAPERI 3 CELESTINE CELESTINE TONEAL UPPER ABDOMEN W/LAPS NOS REMOVAL 54412 BOTTIGGI BOTTIGGI PERITONEA 3 ANT ANT L [place]IGN [place] I 90008 MORRISON MORRISON SURG 3 [facility] PATHOLOGY GROSS EXAMINATI ON ONLY CUL BACT 73740 RADHA GARCIA XCPT 3 [facility] URINE INC INC BLOOD/STO OL AEROBIC ISOL CUL BACT 97342 RADHA GARCIA AEROBIC 3 [facility] ADDL INC INC METHS DEFINITIV E EA ISOL BLOOD 64074 RADHA GARCIA COUNT 3 [facility] COMPLETE INC INC AUTO&AUTO DIFRNTL WBC SUSCEPTIB 05322 RADHA GARCIA LTY STDY 3 [facility] ANTIMICRB INC INC IAL MICRO/AGA R DILUTJ BASIC 17710 RADHA GARCIA METABOLIC 3 [facility] [place] [address] RADHA GARCIA AMYLASE 3 [facility] INC INC COMPREHEN 93767 RADHA GARCIA SIVE 3 [facility] METABOLIC INC INC PANEL URNLS DIP 38490 RADHA GARCIA 3 [facility] STICK/TAB INC INC [place] [address] RADHA GARCIA LIPASE 3 [facility] INC INC BLOOD 63123 RADHA GARCIA COUNT 3 [facility] COMPLETE INC INC AUTO&AUTO DIFRNTL WBC RADIOLOGI 43913 [facility] C EXAM 3 ROM ROM CHEST 2 VIEWS FRONTAL&L ATERAL RADIOLOGI 20890 [facility] C EXAM 3 ROM ROM CHEST 2 VIEWS FRONTAL&L ATERAL RADIOLOGI 89497 [facility] C 3 ROM ROM EXAMINATI [place] [address] LEON ISAAC LEON ISAAC SURG 3 PATHOLOGY GROSS&ISAAC ROSCOPIC EXAM OPEN AND 4572 RADHA GARCIA OTHER 3 [facility] CECECTOMY INC INC ANES 52987 [facility] INTRAPERI 3 ANESTH TONEAL OF THE UPPER BLUE ABDOMEN W/LAPS NOS COLECTOMY 85266 WENDY NGUYEN PRTL 3 BOONE BOONE W/RMVL TERMINAL ILEUM & ILEOCOLOS COMPREHEN 74060 RADHA GARCIA SIVE 3 [facility] METABOLIC INC INC PANEL BLOOD 28805 RADHA GARCIA COUNT 3 [facility] COMPLETE INC INC AUTO&AUTO DIFRNTL WBC BLOOD 07243 RADHA GARCIA COUNT 3 [facility] COMPLETE INC INC AUTO&AUTO DIFRNTL WBC RADEX ABD 70457 RADHA GARCIA COMPL 3 [facility] AQT ABD INC INC W/S/E/D VIEWS 1 VIEW CH IAADI 20692 RADHA GARCIA INFLUENZA 3 [facility] B VIRUS INC INC IAADI 89625 RADHA GARCIA INFFLUENZ 3 [facility] A A VIRUS INC INC COMPREHEN 02973 RADHA GARCIA SIVE 3 [facility] METABOLIC INC INC PANEL THERAPEUT 09265 RADHA GARCIA IC 3 [facility] INJECTION INC INC IV PUSH EACH NEW DRUG URNLS DIP 89111 RADHA GARCIA 3 [facility] STICK/TAB INC INC LET REAGENT AUTO MICROSCOP Y THER 66372 RADHA GARCIA PROPH/DX 3 [facility] NJX IV INC INC PUSH SINGLE/1S T SBST/[place] [address] RADHA GARCIA LIPASE 3 [facility] INC INC [place] OF 11-30-201 63265 RADHA GARCIA LIPASE 2 [facility] INC INC RADEX 67062 RADHA GARCIA ABDOMEN 1 2 [facility] INC INC ANTEROPOS TERIOR VIEW URNLS DIP 82987 RADHA GARCIA 2 [facility] STICK/TAB INC [place] [address] RADHA GARCIA ABDOMEN & 2 [facility] PELVIS INC INC W/CONTRAS T MATERIAL THERAPEUT 42482 RADHA GARCIA IC 2 [facility] INJECTION INC [place] [address] RADHA GARCIA INFUSION 2 [facility] THERAPY/P INC INC ROPHYLAXI S /DX 1ST TO 1 HR COMPREHEN 03269 RADHA GARCIA SIVE 2 [facility] [place] [address] RADHA GARCIA AMYLASE 2 [facility] INC INC LOCM Q9967 RADHA GARCIA [phone] [facility] MG/ML INC INC IODINE CONCENTRA TION PER ML 3D 93544 RADHA GARCIA RENDERING 2 [facility] INC W/INTERP& POSTPROC DIFF WORK STATION BLOOD 19842 RADHA GARCIA COUNT 2 [facility] COMPLETE INC INC AUTO&AUTO DIFRNTL WBC THER 23413 RADHA GARCIA PROPH/DX 2 [facility] NJX EA INC INC SEQL IV PUSH SBST/DRUG FAC SKIN TEST 57593 RADHA GARCIA 2 [facility] TUBERCULO INC INC SIS INTRADERM AL RADIOLOGI 45826 [place] C EXAM 2 MEDICAL ROM CHEST 2 IMAGING VIEWS ASS [place]ONTAL&[place] [address] RADHA GARCIA AMYLASE 2 [facility] INC INC COMPREHEN 60921 RADHA GARCIA SIVE 2 [facility] METABOLIC INC INC PANEL URNLS DIP 41677 RADHA GARCIA 2 [facility] STICK/TAB INC INC [place] [address] RADHA GARCIA LIPASE 2 [facility] INC INC CULTURE 61570 RADHA GARCIA BACTERIAL 2 [facility] INC INC QUANTTATI VE COLONY COUNT URINE BLOOD 42689 RADHA GARCIA COUNT 2 [facility] COMPLETE INC INC AUTO&[place] [address] RADHA GARCIA INFUSION 2 [facility] THERAPY INC INC PROPHYLAX IS/DX EA HOUR CUL 62368 RADHA GARCIA PRSMPTV 2 [facility] PTHGNC INC INC ORGANISMS SCR DNS CHART EGD 98749 RADHA GARCIA TRANSORAL 2 [facility] BIOPSY INC INC SINGLE/[place] [address] RADHA GARCIA INFUSION 2 [facility] THERAPY/P INC INC ROPHYLAXI S /DX 1ST TO 1 HR ECG 07363 BESSON BESSON ROUTINE 2 REJI REJI ECG W/LEAST 12 LDS I&R ONLY CRITICAL 76981 [facility] CARE 2 ISAAC ISAAC ILL/INJUR ED PATIENT INIT 30-74 MIN URINE 44695 RADHA GARCIA 2 [facility] TEST INC INC VISUAL COLOR CMPRSN METHS URNLS DIP 10609 RADHA GARCIA 2 [facility] STICK/TAB INC INC [place] [address] [place] UPR W/WO 2 MEDICAL ROM GLUCOSE IMAGING W/SM ASS INTEST FOLLW-THR U RADEX 01606 RADHA GARCIA SMALL 2 [facility] INTESTINE INC INC W/MULTIPL E SERIAL IMAGES C-REACTIV 35637 RADHA GARCIA E PROTEIN 2 [facility] INC INC BLOOD 40610 RADHA GARCIA COUNT 2 [facility] COMPLETE INC INC AUTO&AUTO DIFRNTL WBC OPHTH 72893 JOSE GARCIA RA MEDICAL 2 XM&EVAL COMPRE NEW PT 1/> VST DETERMINA 69642 JOSE KNAPP GARCIA RA TION [address] [place] [address] RADHA GARCIA AMYLASE 2 [facility] INC INC THERAPEUT 04871 RADHA GARCIA IC 2 [facility] INJECTION INC INC IV PUSH EACH NEW DRUG COMPREHEN 67558 RADHA RADHA SIVE 2 [facility] METABOLIC INC INC PANEL URNLS DIP 44111 RADHA GARCIA 2 [facility] STICK/TAB INC [place] [address] RADHA GARCIA INFUSION 2 [facility] THERAPY/P INC INC ROPHYLAXI S /DX 1ST TO 1 [place] [address] RADHA GARCIA LIPASE 2 [facility] INC INC BLOOD 17942 RADHA GARCIA COUNT 2 [facility] COMPLETE INC INC AUTO&AUTO DIFRNTL WBC BLOOD 77099 RADHA GARCIA COUNT 2 [facility] COMPLETE INC INC AUTO&[place] [address] RADHA GARCIA LIPASE 2 [facility] INC INC THER 47502 RADHA GARCIA PROPH/DX 2 [facility] NJX IV INC INC PUSH SINGLE/1S T SBST/DRUG COMPREHEN 78337 RADHA GARCIA SIVE 2 [facility] METABOLIC INC INC PANEL COMPREHEN 92242 RADHA GARCIA SIVE 2 [facility] [place] [address] RADHA GARCIA AMYLASE 2 [facility] INC INC URNLS DIP 87498 RADHAANYI GARCIA 2 [facility] STICK/TAB INC INC [place] [address] RADHA GARCIA LIPASE 2 [facility] MEM [facility] INC INC THERAPEUT 68290 [facility] GARCIA IC 2 [facility] PROPHYLAC INC INC TIC/DX INJECTION SUBQ/IM BLOOD 66040 [facility] G[facility]IA COUNT 2 [facility] COMPLETE INC INC AUTO&AUTO DIFRNTL WBC THERAPEUT 67396 RAD[facility] GARCIA IC 2 [facility] PROPHYLAC INC INC TIC/DX INJECTION SUBQ/IM THERAPEUT 28420 RAD[facility] GARCIA IC 2 [facility] PROPHYLAC INC INC TIC/DX INJECTION SUBQ/IM RADEX 43930 RADHA GARCIA SPINE 2 [facility] LUMBOSACR INC INC AL MINIMUM 4 VIEWS GROUND A0425 [facility] MILEAGE 2 AMBULANCE AMBULANCE PER SERVICE SERVICE STATUTE MILE AMB A0427 [facility] SERV[facility] 2 [facility]ANCE AMBULANCE ALS SERVICE SERVICE EMERGENCY TRANSPORT LEVEL 1 RADEX 20204 RADHA THOMASON RIBS UNI 2 [facility] W/POSTERO INC INC ANT CH MINIMUM 3 VIEWS RADEX HIP 99223 RADHA GARCIA 2 [facility] UNILATERA INC INC L COMPLETE MINIMUM 2 VIEWS INJECTION J2405 RADHAANYI GARCIA 1 [facility] ONDANSETR INC INC ON HCL PER 1 MG BLOOD 76957 RAD[facility] GARCIA COUNT 1 [facility] COMPLETE INC INC AUTO&[place] [address] RADHA GARCIA INFUSION 1 [facility] THERAPY INC INC PROPHYLAX IS/DX EA HOUR 3D 41085 RADHA GARCIA RENDERING 1 [facility] INC INC W/INTERP& POSTPROC DIFF WORK STATION BASIC 91495 RADHA GARCIA METABOLIC 1 [facility] PANEL INC INC CALCIUM TOTAL HEPATIC 10675 RADHA GARCIA FUNCTION 1 [facility] [place] [address] RADHA GARCIA ABDOMEN & 1 [facility] PELVIS INC INC W/[place] [address] RADHA GARCIA LIPASE 1 [facility] INC INC URNLS DIP 28131 RAD[facility] GARCIA 1 [facility] STICK/TAB INC [place] [address] RADHA GARCIA INFUSION 1 [facility] THERAPY/P INC INC ROPHYLAXI S /DX 1ST TO 1 [place] [address] RADHA GARCIA INFUSION 1 [facility] THERAPY/P INC INC ROPHYLAXI S /DX 1ST TO 1 [place] [address] RADHA GARCIA INFUSION 1 [facility] THERAPY INC INC PROPHYLAX IS/DX EA HOUR INJECTION J1745 RAD[facility] GARCIA 1 [facility] INFLIXIMA INC INC B EXCLUDES BIOSIMILA R 10 MG IAADI 60942 RADHA GARCIA INFLUENZA 1 [facility] B VIRUS INC INC IAADI 62851 RADHA GARCIA INFFLUENZ 1 [facility] [place] [address] RADHA GARCIA STREPTOCO 1 [facility] CCUS INC INC GROUP A 3D 66395 RADHA GARCIA RENDERING 1 [facility] INC INC W/INTERP& POSTPROC DIFF WORK STATION INJECTION J2405 RADHAANYI GARCIA 1 [facility] ONDANSETR INC INC ON HCL PER 1 MG BLOOD 08061 RADHA GARCIA COUNT 1 [facility] COMPLETE INC INC AUTO&AUTO DIFRNTL WBC URNLS DIP 87606 RADHA GARCIA 1 [facility] STICK/TAB INC INC LET REAGENT AUTO MICROSCOP Y GROUND A0425 SUSAN SUSAN MILEAGE 1 AMBULANCE AMBULANCE PER SERVICE SERVICE STATUTE MILE URINE 04428 RADHA GARCIA 1 [facility] TEST INC INC VISUAL COLOR CMPRSN [place]HS [place] SOFT 35228 RADHA GARCIA TISSUE 1 [facility] NECK INC INC W/CONTRAS T MATERIAL AMBULANCE A0429 [facility]AN DAVIS SERVICE 1 AMBULANCE AMBULANCE BLS SERVICE SERVICE EMERGENCY TRANSPORT RADIOLOGI 98480 RADHA GARCIA C EXAM 1 [facility] CHEST 2 INC INC VIEWS FRONTAL&L ATERAL COMPREHEN 74700 RADHA GARCIA SIVE 1 [facility] [place] [address] RADHA GARCIA STREPTOCO 1 [facility] CCUS INC INC GROUP A IAADI 51437 RADHA GARCIA INFFLUENZ 1 [facility] A A VIRUS INC INC IAADI 81079 RADHA GARCIA INFLUENZA 1 [facility] [place] [address] RADHA GARCIA INFUSION 1 [facility] THERAPY INC [place] [address] RADHA GARCIA INFUSION 1 [facility] THERAPY/P INC INC ROPHYLAXI S /DX 1ST TO 1 HR RADIOLOGI 94891 SHARON MOORE C EXAM 1 MEDICAL ROM CHEST 2 IMAGING VIEWS ASS FRONTAL&L ATERAL SKIN TEST 45177 RADHA GARCIA 1 [facility] [place]BER[place] [address] RADHA GARCIA INFUSION 1 [facility] THERAPY INC INC PROPHYLAX IS/DX EA HOUR 3D 94569 SHARON MOORE RENDERING 1 MEDICAL ROM IMAGING W/INTERP& ASS POSTPROC DIFF WORK STATION RADIOLOGI 46128 SHARON MOORE C EXAM 1 MEDICAL ROM CHEST 2 IMAGING VIEWS ASS FRONTAL&[place] [address] RADHA GARCIA INFUSION 1 [facility] THERAPY/P INC INC ROPHYLAXI S /DX 1ST [place] [address] [place] [address] SHARON MOORE ABDOMEN & 1 MEDICAL ROM PELVIS IMAGING W/[place] [address] RADHA RADHA LIPASE 1 [facility] INC INC URNLS DIP 06148 RADHA GARCIA 1 [facility] STICK/TAB INC INC LET REAGENT AUTO MICROSCOP Y COMPREHEN 21671 RADHAANYI GARCIA SIVE 1 [facility] METABOLIC INC INC PANEL BLOOD 77428 RADHA RADHA COUNT 1 [facility] COMPLETE INC INC AUTO&AUTO DIFRNTL WBC BLOOD 59650 RADHA RADHA COUNT 1 [facility] COMPLETE INC INC AUTO&AUTO DIFRNTL WBC BASIC 25028 RADHAANYI GARCIA METABOLIC 1 [facility] PANEL INC INC CALCIUM TOTAL URNLS DIP 39321 RADHA GARCIA 1 [facility] STICK/TAB INC INC LET REAGENT AUTO MICROSCOP Y URNLS DIP 88546 RADHAANYI GARCIA 1 [facility] STICK/TAB INC [place] [address] RADHAANYI GARCIA INFUSION 1 [facility] THERAPY/P INC INC ROPHYLAXI S /DX 1ST TO [place] [address] RADHA GARCIA LIPASE 1 [place] [address] RADHA GARCIA AMYLASE 1 [facility] INC INC COMPREHEN 77145 RADHA GARCIA SIVE 1 [facility] METABOLIC INC INC PANEL BLOOD 44499 RADHA GARCIA COUNT 1 [facility] COMPLETE INC INC AUTO&[place] [address] RADAH GARCIA INFUSION 1 [facility] THERAPY INC INC PROPHYLAX IS/DX EA HOUR SKIN TEST 92380 RADHA GARCIA 1 [facility] SIS INTRADERM AL RADIOLOGI 93321 [place] C EXAM 1 MEDICAL ROM CHEST 2 IMAGING VIEWS ASS FRONTAL&L ATERAL URNLS DIP 91042 RADHA GARCIA 1 [facility] STICK/TAB INC INC LET REAGENT AUTO MICROSCOP Y C-REACTIV 52979 RADHA GARCIA E PROTEIN 0 [facility] HIGH INC INC SENSITIVI TY OVA&JACQUELINE 53002 RADHA GARCIA ITES 0 [facility] DIRECT INC INC SMEARS CONCENTRA TION & ID CUL BACT 21642 RADHA GARCIA STOOL 0 [facility] AEROBIC INC INC ISOL SALMONELL A&[place] [address] RADHA GARCIA CLOSTRIDI 0 [facility] [place] [address] RADHA GARCIA GIARDIA 0 [facility] INC INC URNLS DIP 42097 RADHA RADHA 0 [facility] STICK/TAB INC [place] [address] RADHA GARCIA INFUSION 0 [facility] THERAPY/P INC INC ROPHYLAXI S /DX 1ST TO [place] [address] RADHA GARCIA INFUSION 0 [facility] THER INC INC PROPH ADDL SEQUENTIA L TO 1 HR COMPREHEN 32705 RADHA GARCIA SIVE 0 [facility] [place] [address] RADHA GARCIA AMYLASE 0 [facility] INC INC URNLS DIP 36317 RADHA THOMASON 0 [facility] STICK/TAB INC INC [place] [address] RADHA GARCIA LIPASE 0 [place] [address] RADHA GARCIA STREPTOCO 0 [facility] CCUS INC INC GROUP A BLOOD 36190 RADHA GARCIA COUNT 0 [facility] COMPLETE INC INC AUTO&AUTO DIFRNTL WBC RADEX TOE 69897 SHARON CASTILLOUTCHER, MINIMUM 0 MEDICAL CAESY 2 VIEWS IMAGING ASSOCIATE S AMBULANCE A0429 [facility] SERVICE 0 AMBULANCE AMBULANCE BLS SERVICE SERVICE EMERGENCY TRANSPORT GROUND A0425 [facility] MILEAGE 0 AMBULANCE AMBULANCE PER SERVICE SERVICE STATUTE MILE APPL 46336 RADHA RADHA MODALITY 9 [facility] 1/> AREAS INC INC ELEC STIMJ UNATTENDE D PHYSICAL 86535 RADHA GARCIA THERAPY 9 [facility] EVALUATIO INC INC N THERAPEUT 22916 RADHA THOMASON IC PX 1/> 9 [facility] AREAS INC INC EACH 15 MIN EXERCISES APPLICATI 05496 RADHA GARCIA ON 9 [facility] MODALITY INC INC 1/> AREAS HOT/COLD PACKS APPL 05697 RADHAANYI GARCIA MODALITY 9 [facility] 1/> AREAS INC INC ULTRASOUN D EA 15 MIN PSYCHOLOG 86904 PHYSICIAN TRE[facility]OR [facility] TEST[facility] ADMN [facility] [place] HR NRV CNDJ 32341 SIENNA EL, AMPLT&LAT 9 KP [facility] ENCY EA NRV MOTOR W/F-WAVE STD NRV CNDJ 76186 SIENNA EL, AMPLITUDE 9 KP [facility] & LATENCY EACH NERVE SENSORY NDL EMG 1 81880 SIENNA EL, XTR W/WO 9 KP [facility] RELATED PARASPINA L AREAS MRI 25066 CASEY MOORE, SPINAL 9 TERESAREBEKAH PEÑA CANAL LUMBAR W/O CONTRAST MATERIAL ECHO 40223 RADHA GARCIA TTHRC R-T 9 [facility] 2D INC INC W/WOM-MOD E COMPL SPEC&COLR D 3D 82093 CASEY MOORE, RENDERING 9 TERESA CASEY W/INTERP & POSTPROCE SS SUPERVISI ON CYANOCOBA 58375 RADHA GARCIA JAKOB 9 [facility] VITAMIN INC INC B-12 HEMOGLOBI 92696 RADHA GARCIA N 9 [facility] GLYCOSYLA INC INC ANGELA A1C COMPREHEN 67343 RADHA GARCIA SIVE 9 [facility] [place] [address] RADHA GARCIA FOLIC 9 [facility] ACID INC INC SERUM SYPHILIS 34019 RADHA GARCIA TEST 9 [facility] NON-TREPO [place] [address] RADHA GARCIA THYROXINE 9 [facility] TOTAL INC INC BLOOD 03074 RADHA GARCIA COUNT 9 [facility] COMPLETE INC INC AUTO&AUTO DIFRNTL WBC RHEUMATOI 46154 RADHA GARCIA D FACTOR 9 [facility] QUANTITAT INC INC ANIYAH PROTEIN 99442 RDAHA GARCIA ELECTROPH 9 [facility] ORETIC INC INC FRACTJ&[place] [address] RADHA GARCIA THYROID 9 [facility] STIMULATI INC INC NG HORMONE TSH C-REACTIV 79814 RADHA GARCIA E PROTEIN 9 [facility] HIGH INC INC SENSITIVI TY BLOOD 80391 RADHAANYI THOMASON COUNT 9 [facility] COMPLETE INC INC AUTO&AUTO DIFRNTL WBC RADIOLOGI 29367 RADHA GARCIA C EXAM 9 [facility] CHEST 2 INC INC VIEWS FRONTAL&L ATERAL COMPREHEN 55983 RADHA THOMASON SIVE 9 [facility] METABOLIC INC INC PANEL THERAPEUT 10471 RADHA GARCIA IC 9 [facility] PROPHYLAC INC INC TIC/DX INJECTION SUBQ/[place] [address] [facility] ANALI KOHLER, ABDOMEN 9 RADIOLOGY J W/O CONTRAST MATERIAL CT PELVIS 58267 [facility] ANALI KOHLER, W/O 9 RADIOLOGY J CONTRAST MATERIAL BLOOD 65287 RADHA GARCIA COUNT 9 [facility] COMPLETE INC INC AUTO&[place] [address] RADHA GARCIA AMYLASE 9 [facility] INC INC URINE 27609 RADHA GARCIA 9 [facility] TEST INC INC VISUAL COLOR CMPRSN METHS RADEX 68028 [place], ABDOMEN 9 [facility] [place] P COMPL IMAGING W/DCBTS&/ ASSOCIATE ERC VIEWS S COMPREHEN 65047 RADHA GARCIA SIVE 9 [facility] METABOLIC INC INC PANEL URNLS DIP 12959 RADHA GARCIA 9 [facility] STICK/TAB INC INC LET REAGENT AUTO MICROSCOP Y CYANOCOBA 84999 RADHA GARCIA JAKOB 9 [facility] VITAMIN INC INC B-12 BLOOD 33776 RADHA GARCIA COUNT 9 [facility] COMPLETE INC INC AUTO&AUTO DIFRNTL WBC RADEX 91956 [place] HAR[place], SPINE 9 [facility] SCOLIOS IMAGING STUDY ASSOCIATE W/SUPINE S & ERECT STUDY OBSERVATI 00558 JUANABUD [facility] ON CARE 9 , CALEB , CALEB DISCHARGE MANAGEMEN T RADEX ABD 16879 [facility] ANALI JOSE F COMPL 9 RADIOLOGY J AQT ABD W/S/E/D VIEWS 1 VIEW CH INITIAL 95464 [facility] OBSERVATI 9 , CALEB , CALEB ON CARE/[address] [place] [address] [facility] ANALI [place] ABDOMEN 9 RADIOLOGY JUDAH Abdalla W/O CONTRAST MAT[address] [place] PELVIS 08736 [facility] ANALI [place] W/O 9 [place] [address] RADHA GARCIA INFUSION 9 [facility] THERAPY/P INC INC ROPHYLAXI S /DX 1ST TO 1 HR COMPREHEN 27356 RADHA GARCIA SIVE 9 [facility] METABOLIC INC INC PANEL RADEX 96063 RADHA GARCIA ABDOMEN 9 [facility] COMPL INC INC W/DCBTS&/ ERC VIEWS URNLS DIP 87330 RADHA GARCIA 9 [facility] STICK/TAB INC INC LET REAGENT AUTO MICROSCOP Y BLOOD 99161 RADHA GARCIA COUNT 9 [facility] COMPLETE INC INC AUTO&[place] [address] SHARON CANSECO, HEAD/BRAI 9 [facility]ICAL [place] P N W/O IMAGING CONTRAST ASSOCIATE MATERIAL S 3D 56696 RADHA GARCIA RENDERING 9 [facility] W/INTERP INC INC & [place] [address] [facility] [place] JOSE F, ABDOMEN 9 RADIOLOGY J W/CONTRAS T [place] PELVIS 03855 [facility] [place] JOSE F, 9 RADIOLOGY J W/CONTRAS T [place] PELVIS 49545 [facility] [place] CESAR, 9 RADIOLOGY LUIS G W/[place] [address] [facility] [place] C[place], ABDOMEN 9 RADIOLOGY LUIS G W/CONTRAS T MATERIAL RADEX 57979 RADHA GARCIA SPINE 8 [facility] LUMBOSACR INC INC AL MINIMUM 4 [place] [address] RADHA GARCIA TRACT UPR 8 [facility] W/SM INT INC INC W/[place] [address] SHARON TERESA, UPR W/WO 8 MEDICAL CASEY GLUCOSE IMAGING W/SM ASSOCIATE INTEST S FOLLW-THR U COMPREHEN 96894 RADHA GARCIA SIVE 8 [facility] [place] [address] RADHA GARCIA AMYLASE 8 [facility] INC INC GROUND A0425 [facility] 8 AMBULANCE AMBULANCE PER SERVICE SERVICE STATUTE MILE AMBULANCE A0429 [facility] 8 AMBULANCE AMBULANCE BLS SERVICE [place] [address] RADHA GARCIA LIPASE 8 [facility] INC INC URNLS DIP 21167 RADHA GARCIA 8 [facility] STICK/TAB INC INC LET REAGENT AUTO MICROSCOP Y BLOOD 08592 RADHA GARCIA COUNT 8 [facility] COMPLETE INC INC AUTO&[place] [address] RADHA GARCIA THER 8 [facility] PROPH/DX INC INC 1ST >[address] PELVIS 73334 [place] DODSON, 8 MEDICAL PAULN[place] W/[place] [address] [facility] ABDOMEN 8 Y Y W/CONTRAS HOSPITAL HOSPITAL T MATERIAL INJECTION J2270 [facility] MORPHINE 8 Y Y SULFATE [facility] UP TO 10 MG COLLECTIO 06155 [facility] N VENOUS 8 Y Y BLOOD [facility] VENIPUNCT URE COMPREHEN 00490 [facility] SIVE 8 Y Y METABOLIC [facility] PANEL URNLS DIP 71269 [facility] 8 Y Y STICK/TAB HOSPITAL HOSPITAL [place] [address] [facility] INFUSION 8 Y Y HYDRATION [facility] INITIAL 31 MIN-1 HR THER 98327 [facility] PROPH/DX 8 Y Y NJX [facility] SEQL IV PUSH SBST/DRUG SUBCUTANE 36435 [facility] OUS 8 Y Y INFUSION [facility] EACH ADDITIONA L IV PUSH INJECTION J2405 [facility] PER 1 MG BLOOD 42512 [facility] COUNT 8 Y Y COMPLETE [facility] AUTOMATED RINGERS J7120 [facility] LACTATE 8 Y Y INFUSION [facility] UP TO 1000 CC THER 99681 [facility] PROPH/DX 8 Y Y NJX IV [facility] PUSH 1ST SBST/DRUG GONADOTRO 65915 [facility] PIN 8 Y Y CHORIONIC [facility] QUALITATI VE RADEX ABD 91498 [facility] COMPL 8 Y Y AQT ABD HOSPITAL HOSPITAL W/S/E/D VIEWS 1 VIEW CH INJECTION J3010 [facility] FENTANYL 8 Y Y CITRATE [facility] 0.1 [place] NFS 0[address]10 RADHA GARCIA THER 8 [facility] PROPH/DX INC INC 1ST >1 HR RADEX ABD 78360 SHARON MOORE, COMPL 8 MEDICAL CASEY AQT ABD IMAGING W/S/E/D ASSOCIATE VIEWS 1 S VIEW CH BLOOD 58593 RADHA GARCIA COUNT 8 [facility] COMPLETE INC INC AUTO&[place] [address] RADHA GARCIA LIPASE 8 [facility] INC INC COMPREHEN 93353 RADHA GARCIA SIVE 8 [facility] [place] [address] RADHA GARCIA AMYLASE 8 [place] [address] RADHA GARCIA AMYLASE 8 [facility] INC INC COMPREHEN 42114 RADHA GARCIA SIVE 8 [facility] METABOLIC INC INC PANEL BILIRUBIN 58526 RADHA GARCIA DIRECT 8 [place] [address] RADHA GARCIA LIPASE 8 [facility] INC INC URNLS DIP 50048 RADHA GARCIA 8 [facility] STICK/TAB INC INC LET REAGENT AUTO MICROSCOP Y BLOOD 33104 RADHA GARCIA COUNT 8 [facility] COMPLETE INC INC AUTO&AUTO DIFRNTL WBC RADEX ABD 08440 [place] COMPL 8 MEDICAL CASEY AQT ABD IMAGING W/S/E/D ASSOCIATE VIEWS 1 S VIEW CH 3D 33809 [facility] 8 [facility] [place] P IMAGING W/INTERP& ASSOCIATE POSTPROC S DIFF WORK STATION CT PELVIS 33725 RADHA GARCIA 8 [facility] W/[place] [address] RADHA GARCIA ABDOMEN 8 [facility] W/CONTRAS INC INC T MATERIAL BLOOD 48401 RADHA GARCIA COUNT 8 [facility] COMPLETE INC INC AUTO&AUTO DIFRNTL WBC C-REACTIV 57889 RADHA GARCIA E PROTEIN 8 [facility] HIGH INC INC SENSITIVI TY BLOOD 62084 RADHA GARCIA COUNT 8 [facility] COMPLETE INC INC AUTO&AUTO DIFRNTL WBC BASIC 92526 RADHA GARCIA METABOLIC 8 [facility] PANEL INC INC CALCIUM TOTAL CYANOCOBA 09923 RADHA GARCIA JAKOB 8 [facility] VITAMIN INC INC B-12 RADIOLOGI 46788 [place] C EXAM 8 [facility] [place] P CHEST 2 IMAGING VIEWS ASSOCIATE FRONTAL&L S ATERAL IAADI 91024 RADHA GARCIA INFFLUENZ 8 [facility] A A VIRUS INC INC IAADI 98240 RADHA GARCIA INFLUENZA 8 [facility] [place] [address] RADHA GARCIA THER 8 [facility] PROPH/DX INC INC 1ST >1 HR CULTURE 56724 RADHA GARCIA BACTERIAL 8 [facility] INC INC QUANTTATI VE COLONY COUNT URINE BLOOD 48072 RADHA GARCIA COUNT 8 [facility] COMPLETE INC INC AUTO&AUTO DIFRNTL WBC RADEX ABD 21467 [place] HARLE[place], COMPL 8 MEDICAL [place] P AQT ABD IMAGING W/S/E/D ASSOCIATE VIEWS 1 [place] [address] RADHA GARCIA AMYLASE 8 [place] [address] RADHA GARCIA LIPASE 8 [facility] INC INC URNLS DIP 94221 RADHA GARCIA 8 [facility] STICK/TAB INC INC LET REAGENT AUTO MICROSCOP Y COMPREHEN 26698 RADHA GARCIA SIVE 8 [facility] METABOLIC INC INC PANEL RADIOLOGI 38557 RADHA GARCIA C EXAM 8 [facility] CHEST 2 INC INC VIEWS FRONTAL&L ATERAL RADEX 75499 RADHA GARCIA SPINE 8 [facility] CERVICAL INC INC 6 OR MORE VIEWS RADEX 63094 RADHA GARCIA SPINE 8 [facility] THORACIC INC INC [address] PELVIS 12429 RADHA GARCIA W/O 8 [facility] CONTRAST INC INC MATERIAL 3D 16784 RADHA GARCIA RENDERING 8 [facility] INC INC W/INTERP& POSTPROC DIFF WORK STATION BLOOD 01038 RADHA GARCIA COUNT 8 [facility] COMPLETE INC INC AUTO&[place] [address] RADHA GARCIA AMYLASE 8 [place] [address] RADHA GARCIA ABDOMEN 8 [facility] W/O INC INC CONTRAST MATERIAL RADEX 78617 SHARON MOORE SMALL 8 MEDICAL CASEY INTESTINE IMAGING ASSOCIATE W/MULTIPL S E SERIAL IMAGES COMPREHEN 16223 RADHA GARCIA SIVE 8 [facility] METABOLIC INC INC PANEL URNLS DIP 70886 RADHA GARCIA 8 [facility] STICK/TAB INC INC [place] [address] RADHA GARCIA LIPASE 8 [facility] INC INC [place] [address]2853 [place] YARA, PY 8 MEDICAL CALVIN W/BIOPSY SERV SINGLE/MU FOUND[facility] LTIPLE ANES 25626 [facility] 8 ANESTH REY INTESTINE [facility] [place] [address] RADHA GARCIA THER 8 [facility] PROPH/DX INC INC 1ST >[place] [address] PATHOLOGY PATHOLOGY SURG 8 & & PATHOLOGY CYTOLOGY CYTOLOGY LAB LAB GROSS&ISAAC ROSCOPIC EXAM CLOSED 4525 RADHA GARCIA [ENDOSCOP 8 [facility] IC] INC INC BIOPSY OF LARGE INTESTINE Encounters Encounter Start End Date Code Location Performer Type Date OFFICE [address] [facility] OUTPATIEN 7 7 [facility] T VISIT 25 PHYSICIAN MINUTES S OFFICE [address] [facility] JESSICA OUTPATIEN 7 7 [facility] T VISIT 25 PHYSICIAN MINUTES S EMERGENCY 02393 [facility]PT 7 7 EMERGENCY VISIT HIGH PHYSICIAN SEVERITY& S THREAT FUN EMERGENCY 26082 [facility] ADERS 7 7 EMERGENCY DEPARTMEN T VISIT PHYSICIAN HIGH/URGE S NT SEVERITY EMERGENCY 24581 [facility] DEPT 7 7 EMERGENCY VISIT HIGH PHYSICIAN SEVERITY& S THREAT FUN EMERGENCY 27057 [facility] DEPT 7 7 EMERGENCY VISIT HIGH PHYSICIAN SEVERITY& S THREAT [facility] - 7 7 [facility] OUTPATIEN FT T KARINE OFFICE 16113 [facility] OUTPATIEN 7 7 [facility] T VISIT 25 PHYSICIAN MIN[address]ES S [facility] - 7 7 [facility] OUTPATIEN [facility] - [address] [facility] EMERGENCY 03854 SHAILESH POSADAS 6 6 EMERGENCY N DEPARTMEN T VISIT PHYSICIAN HIGH/URGE S NT SEVERITY OFFICE 73023 [facility] OUTPATIEN 6 6 [facility] GELACIO T VISIT 25 PHYSICIAN MINUTES S PERIODIC 09822 MCDANIELS PREVENTIV 6 6 [facility] E MED EST PATIENT PHYSICIAN [id number] S [facility] ION NEW/ESTAB PHYSICIAN PATIENT S [address] OTHER 6 6 [facility] OFFICE [address] ST [facility] CONSULTAT 6 6 [facility] GELACIO ION NEW/ESTAB PHYSICIAN PATIENT S 60 MIN EMERGENCY 00819 SHAILESH FAN-Shiela DEPT 6 6 EMERGENCY AXWELL VISIT REJI HIGH PHYSICIAN SEVERITY& S THREAT [facility] - 6 6 [facility] T EMERGENCY 51478 [facility] SWEENEY 6 6 PHYSICIAN [facility] [place] S, [facility] T VISIT HIGH/URGE NT SEVERITY EMERGENCY 61173 [facility] 6 6 [facility] DEPARTMEN INC T VISIT LOW/MODER SEVERITY HOSPITAL [facility] - 6 6 [facility] T OFFICE 46929 [facility] DIEGO OUTPATIEN 6 6 PHYSICIAN T NEW 20 GROUP MINUTES HOSPITAL [facility] - 6 6 [facility] T EMERGENCY 50673 [facility] HERNANDEZ 6 6 PHYSICIAN DEPARTMEN S, PLLC T VISIT HIGH/URGE NT SEVERITY HOSPITAL RAD[facility] - 6 6 [facility] OUTPATIEN INC T OFFICE 85368 [facility] DUNN OUTPATIEN 6 6 PHYSICIAN STONE T VISIT S GROUP PA-C MUKUND 25 MINUTES HOSPITAL [facility] - 6 6 [facility] RAD[facility] 6 6 [facility] INC T EMERGENCY 47278 RAD[facility] 6 6 [facility] T VISIT LIMITED/M INOR PROB EMERGENCY 86305 [facility] STEWART 6 6 PHYSICIAN [facility] S[facility] T VISIT MODERATE SEVERITY EMERGENCY 62757 RAD[facility] 6 6 [facility]ERGENCY [facility]PART[facility]MEN [facility] T VISIT LOW/MODER SEVERITY HOSPITAL RADHA - 6 6 [facility] OUTPATIEN [facility] T EMERGENCY 20987 [facility] HERNANDEZ 6 6 PHYSICIAN DEPARTMEN S, [facility] T VISIT HIGH/URGE NT SEVERITY OFFICE 21795 [facility] JENNY 6 6 PHYSICIAN T VISIT S GROUP 10 MINUTES OFFICE 03537 [facility] SHAUN [facility] 6 6 PHYSICIAN STONE T VISIT S GROUP PA-C MUKUND 10 MINUTES EMERGENCY 15342 [facility] JALLOH 6 6 PHYSICIAN [facility], [facility] T VISIT MODERATE SEVERITY HOSPITAL RAD[facility] - 6 6 [facility] OUTPATIEN [facility] T EMERGENCY 64568 [facility] 6 6 [facility] INC T VISIT LOW/MODER SEVERITY HOSPITAL [facility] - 6 6 [facility] OUTPATIEN INC T HOSPITAL RADHA - 6 6 [facility] OUTPATIEN INC T EMERGENCY 73670 [facility] HERRERA 6 6 PHYSICIAN DEPARTMEN S, [facility] T VISIT MODERATE SEVERITY EMERGENCY 00553 [facility] 6 6 [facility]ENC[facility] DEPART[facility]MEN [facility] T VISIT LIMITED/M INOR PROB HOSPITAL RADHA - 6 6 [facility] OUTPATIEN [facility] T EMERGENCY 59883 RAD[facility] 6 6 [facility] DEPARTMEN [facility] T VISIT LOW/MODER SEVERITY EMERGENCY 31634 [facility] JALLOH 6 6 PHYSICIAN ISAAC DEPARTMEN S, [facility] T VISIT MODERATE SEVERITY HOSPITAL RADHA - 6 6 [facility] OUTPATIEN [facility] RADHA - 6 6 [facility] RAD[facility] - 5 5 [facility] RAD[facility] 5 5 [facility] OFFICE 79703 [facility] 5 5 MEDICAL KERLINE T VISIT SERV 25 FOUNDATIO MINUTES HOSPITAL RADHA - 5 5 [facility] EMERGENCY 40500 [facility] 5 5 [facility] DEPART[facility]MEN [facility] T VISIT LOW/MODER SEVERITY EMERGENCY 78262 [facility] JALLOH DEPT 5 5 PHYSICIAN ISAAC VISIT [facility] HIGH SEVERITY& THREAT [facility] EMERGENCY 27439 [facility] MULTANI DEPT 5 5 PHYSICIAN CHERIEZ VISIT [facility] HIGH SEVERITY& THREAT [facility] EMERGENCY 06109 [facility] 5 5 [facility] [facility] DEPARTMEN [facility] T VISIT HIGH/URGE NT SEVERITY HOSPITAL RADHA - 5 5 [facility] OUTPATIEN [facility] OFFICE 03929 [facility] 5 5 PHYSICIAN ISAAC T VISIT S GROUP 10 MINUTES EMERGENCY 95880 RADHA 5 5 [facility] DEPARTMEN [facility] T VISIT LOW/MODER SEVERITY EMERGENCY 09847 MILAGROS JALLOH 5 5 PHYSICIAN ISAAC DEPARTMEN [facility] T VISIT MODERATE SEVERITY HOSPITAL RAD[facility] - 5 5 [facility] T OFFICE 39462 [facility] YEIMI OUTPATIEN 5 5 PHYSICIAN ISAAC T VISIT S GROUP 25 MINUTES EMERGENCY 15044 MILAGROS ESCALANTE 5 5 PHYSICIAN KETAN DEPARTMEN [facility] T VISIT MODERATE SEVERITY OFFICE 17915 [facility] YEIMI OUTPATIEN 5 5 PHYSICIAN ISAAC T VISIT S GROUP 15 MINUTES HOSPITAL RADHA - 5 5 [facility] T EMERGENCY 24517 [facility] 5 5 DEPARTMEN T VISIT HIGH/URGE NT SEVERITY EMERGENCY 16071 SUSHILA Abdalla 5 5 DEPARTMEN T VISIT MODERATE SEVERITY OFFICE 93032 [facility] YEIMI OUTPATIEN 5 5 PHYSICIAN ISAAC T VISIT S GROUP 25 MINUTES HOSPITAL RADHA - 5 5 [facility] T EMERGENCY 58499 [facility] 5 5 DEPARTMEN T VISIT HIGH/URGE NT SEVERITY EMERGENCY 65554 [facility] YEIMI 5 5 ISAAC ISAAC DEPARTMEN T VISIT MODERATE SEVERITY OFFICE 60834 ANALI TO OUTPATIEN 5 5 MEDICAL T VISIT SERV 25 FOUNDATIO MINUTES N HOSPITAL RADHA - 5 5 [facility] T [facility]OSPITAL RADHA - 5 5 [facility] T OFFICE 47710 [facility] OUTPATIEN 5 5 PHYSICIAN T VISIT S GROUP 15 MINUTES OFFICE 38685 [facility] YEIMI OUTPATIEN 5 5 PHYSICIAN ISAAC T VISIT S GROUP 15 MINUTES OFFICE 76115 [facility] YEIMI OUTPATIEN 5 5 PHYSICIAN ISAAC T VISIT S GROUP 15 MINUTES HOSPITAL RADHA - 5 5 [facility] T EMERGENCY 92367 RADHA GUSMAN 4 4 [facility] T VISIT P LOW/MODER SEVERITY HOSPITAL RADHA Terrazas 4 4 [facility] OUT[facility] T EMERGENCY 76265 RADHA JEAN BAPTISTE 4 4 [facility] T VISIT P HIGH/URGE NT SEVERITY EMERGENCY 41626 RADHA DE JESUS 4 4 [facility] T VISIT P HIGH/URGE NT SEVERITY HOSPITAL RADHA - 4 4 [facility] EMERGENCY 31058 RADHA GUSMAN 4 4 [facility] T VISIT P LOW/MODER SEVERITY EMERGENCY 51882 RADHA 4 4 [facility] T VISIT HIGH/URGE NT SEVERITY HOSPITAL RADHA - 4 4 [facility] OUTPATIEN [facility] T EMERGENCY 06234 VORKPOR VORKPOR 4 4 [facility] T VISIT HIGH/URGE NT SEVERITY HOSPITAL UNIVERSIT - 4 4 [facility] T OFFICE 38122 ANALI DIALLO OUTPATIEN [address] T VISIT SERV 25 FOUNDATIO MINUTES EMERGENCY 28931 MARLI HORNE DEPT 4 4 VISIT HIGH SEVERITY& THREAT [facility] RADHA - 4 4 [facility] INC T OFFICE 53002 ANALI TO OUTPATIEN 4 4 MEDICAL T VISIT SERV 15 FOUNDATIO MINUTES HOSPITAL RADHA - 4 4 [facility] INC T OFFICE 75879 [facility] YEIMI OUTPATIEN 4 4 PHYSICIAN ISAAC T NEW 30 S GROUP MINUTES EMERGENCY 42023 SEN [facility]POR DEPT 4 4 [facility] VISIT HIGH SEVERITY& THREAT FUNCJ EMERGENCY 37393 [facility] VORKPOR DEPT 4 4 [facility] VISIT HIGH SEVERITY& THREAT FUNCJ EMERGENCY 80929 [facility] VORKPOR 4 4 [facility] DEPARTMEN T VISIT HIGH/URGE NT SEVERITY EMERGENCY 60697 VORKPOR VORKPOR 4 4 [facility] DEPARTMEN T VISIT HIGH/URGE NT SEVERITY EMERGENCY 49914 ALFARIS ALFARIS 4 4 [facility] DEPARTMEN T VISIT HIGH/URGE NT SEVERITY EMERGENCY 13431 KIT KIT 4 4 IMT IMT DEPARTMEN T VISIT MODERATE SEVERITY EMERGENCY 60311 YEIMI JALLOH 4 4 ISAAC ISAAC DEPARTMEN T VISIT MODERATE SEVERITY EMERGENCY 37333 YEIMI JALLOH DEPT 4 4 ISAAC ISAAC VISIT HIGH SEVERITY& THREAT FUNCJ EMERGENCY 0[address]25 [facility] 4 4 CONRAD BRO DEPARTMEN EMERGENCY T VISIT PHYS HIGH/URGE NT SEVERITY EMERGENCY 02726 [facility] 4 4 CONRAD III JUAN ANTONIO DEPARTMEN EMERGENCY T VISIT PHYS MODERATE SEVERITY OFFICE 88911 RIGOBERTO ALVARADO 4 4 LEE ANN LEE ANN T VISIT 15 MINUTES EMERGENCY 57147 MARLI RAPP DEPT 4 4 VISIT HIGH SEVERITY& THREAT FUNCJ EMERGENCY 76940 MCNAMARA ANDERS 4 4 BRO BRO DEPARTMEN T VISIT HIGH/URGE NT SEVERITY OFFICE 01928 YARA ANT YARA ANT SHAQUILLEPATIEN 3 3 T VISIT 15 MINUTES OFFICE 89086 RIGOBERTO ALVARADO 3 3 LEE ANN LEE ANN T VISIT 15 MINUTES EMERGENCY 78104 YEIMI JALLOH 3 3 ISAAC ISAAC DEPARTMEN T VISIT MODERATE SEVERITY EMERGENCY 51494 MARLI RAPP 3 3 DEPARTMEN T VISIT MODERATE SEVERITY OFFICE 11619 RIGOBERTO FRANKLIN [facility] 3 3 LEE ANN LEE ANN T VISIT 15 MINUTES EMERGENCY 33607 LIAM MARLI RAPP 3 3 EMERGENCY DEPARTMEN SERVICES T VISIT HIGH/URGE NT SEVERITY HOSPITAL UNIVERSIT - 3 3 Y [facility] T EMERGENCY 13386 CHARY DIEZ 3 3 [facility]ER[facility] DEPARTMEN T VISIT HIGH/URGE NT SEVERITY EMERGENCY 33376 RADHA 3 3 [facility] DEPARTMEN INC T VISIT LOW/MODER SEVERITY HOSPITAL RADHA - 3 3 [facility] OUTPATIEN [facility] T EMERGENCY 47842 YEIMI MULLEREY DEPT 3 3 [facility] ISAAC VISIT HIGH SEVERITY& THREAT [facility] RADHA - 3 3 [facility] OUTPATIEN [facility] T EMERGENCY 40002 RADHA 3 3 [facility] T VISIT LOW/MODER SEVERITY EMERGENCY 87061 RADHA 3 3 [facility] T VISIT LOW/MODER SEVERITY EMERGENCY 00890 CHARY DIEZ 3 3 [facility] T VISIT HIGH/URGE NT SEVERITY HOSPITAL RADHA - 3 3 [facility] OUTPATIEN [facility] T EMERGENCY 25477 RADHA 3 3 [facility] T VISIT MODERATE SEVERITY EMERGENCY 95876 YEIMI MULLEREY 3 3 ISAAC [facility] DEPARTMEN T VISIT HIGH/URGE NT SEVERITY HOSPITAL RADHA - 3 3 [facility] RADHA - 3 3 [facility] INPATIENT INC OFFICE 46276 WENDY NGUYEN CONSULTAT 3 3 BOONE SAMUELS NEW/ESTAB PATIENT 60 MIN HOSPITAL RADHA - 3 3 [facility] OUTPATIEN INC T EMERGENCY 82574 RADHA 3 3 [facility] T VISIT MODERATE SEVERITY EMERGENCY 95098 MICHAEL RODRIGUEZ DEPT 3 3 III JUAN ANTONIO III JUAN ANTONIO VISIT HIGH SEVERITY& THREAT [facility] RADHA - 3 3 [facility] T OFFICE 78600 YARA ANT YARA ANT OUTPATIEN 3 3 T VISIT 15 MINUTES HOSPITAL RADHA - 2 2 [facility] EMERGENCY 42883 LIAM RAPP DEPT 2 2 EMERGENCY VISIT SERVICES HIGH SEVERITY& THREAT [facility] EMERGENCY 52250 RADHA 2 2 [facility] T VISIT HIGH/URGE NT SEVERITY OFFICE 81523 RIGOBERTO FRANKLIN OUTPATIEN 2 2 [facility] T VISIT 15 MINUTES HOSPITAL RADHA - 2 2 [facility] OFF[facility] 65738 YARA ANT YARA ANT OUTPATIEN 2 2 T VISIT 25 MINUTES EMERGENCY 47853 RADHA 2 2 [facility] T VISIT MODERATE SEVERITY EMERGENCY 74286 YEIMI YEIMI 2 2 [facility] T VISIT HIGH/URGE NT SEVERITY HOSPITAL RADHA - 2 2 [facility] RADHA [facility] 2 2 [facility] EMERGENCY 69461 YEIMI YEIMI 2 2 [facility] T VISIT HIGH/URGE NT SEVERITY EMERGENCY 45349 RADHA 2 2 [facility] T VISIT LOW/MODER SEVERITY HOSPITAL ARDHA - 2 2 [facility] RADHA [facility] 2 2 [facility] 60507 YARA ANT YARA ANT OUTPATIEN 2 2 T VISIT 25 MINUTES HOSPITAL RADHA - 2 2 [facility] OUT[facility]IEN INC T EMERGENCY 21984 MICHAEL RODRIGUEZ 2 2 III JUAN ANTONIO III JUAN ANTONIO DEPARTMEN T VISIT HIGH/URGE NT SEVERITY HOSPITAL RADHA - 2 2 [facility] OUTPATIEN INC T HOSPITAL RADHA - 2 2 [facility] OUTPATIEN INC T EMERGENCY 19096 RADHA 2 2 [facility] DEPARTMEN INC T VISIT HIGH/URGE NT SEVERITY EMERGENCY 80279 MICHAEL RODRIGUEZ DEPT 2 2 III JUAN ANTONIO III JUAN ANTONIO VISIT HIGH SEVERITY& THREAT [facility] EMERGENCY 82650 RADHA 2 2 [facility] DEPARTMEN INC T VISIT MODERATE SEVERITY EMERGENCY 29653 LIAM JALLOH DEPT 2 2 EMERGENCY ISAAC VISIT SERVICES HIGH SEVERITY& THREAT [facility] RADHA - 2 2 [facility] OUTPATIEN INC T OFFICE 14712 RIGOBERTO FRANKLIN OUTPATIEN 2 2 LEE ANN LEE ANN T VISIT 15 MINUTES EMERGENCY 89920 LIAM JALLOH 2 2 EMERGENCY [facility] DEPARTMEN SERVICES T VISIT HIGH/URGE NT SEVERITY EMERGENCY 87074 RADHA 2 2 [facility] DEPARTMEN INC T VISIT MODERATE SEVERITY HOSPITAL RADHA - 2 2 [facility] OUTPATIEN INC T EMERGENCY 69793 LIAM JALLOH 2 2 EMERGENCY [facility] DEPARTMEN SERVICES T VISIT HIGH/URGE NT SEVERITY HOSPITAL RADHA - 2 2 [facility] OUTPATIEN INC T EMERGENCY 67179 RADHA 2 2 [facility] DEPARTMEN INC T VISIT LIMITED/M INOR PROB EMERGENCY 24421 LIAM JALLOH 2 2 EMERGENCY [facility] DEPARTMEN SERVICES T VISIT HIGH/URGE NT SEVERITY EMERGENCY 21742 RADHA 2 2 [facility] DEPARTMEN INC T VISIT MODERATE SEVERITY HOSPITAL RADHA - 2 2 [facility] OUT[facility]EN INC T OFFICE 20229 ABHINAVEFRAIN FRANKLIN OUTPATIEN 2 2 LEE ANN LEE ANN T VISIT 15 MINUTES EMERGENCY 56155 RADHA 2 2 [facility] DEPARTMEN INC T VISIT LOW/MODER SEVERITY HOSPITAL RADHA - 2 2 [facility] OUTPATIEN INC T EMERGENCY 33091 LIAM RODRIGUEZ 2 2 EMERGENCY III JUAN ANTONIO DEPARTMEN SERVICES T VISIT HIGH/URGE NT SEVERITY OFFICE 58892 RIGOBERTO ACUNAEN 2 2 LEE ANN LEE ANN T VISIT 15 MINUTES HOSPITAL RADHA - 2 2 [facility] OUTPATIEN INC T EMERGENCY 88904 MICHAEL RODRIGUEZ DEPT 1 1 III JUAN ANTONIO III JUAN ANTONIO VISIT HIGH SEVERITY& THREAT [facility] RADHA - 1 1 [facility] OUTPATIEN INC T EMERGENCY 92219 RADHA 1 1 [facility] DEPARTMEN INC T VISIT HIGH/URGE NT SEVERITY OFFICE 41794 YARA ANT YARA ANT OUTPATIEN 1 1 T VISIT 25 MINUTES HOSPITAL RAHDA - 1 1 [facility] OUTPAT[facility]EN INC T [facility]PITAL RADHA - 1 1 [facility] OUT[facility]EN INC T EMERGENCY 81668 RADHA 1 1 [facility] DEPARTMEN INC T VISIT HIGH/URGE NT SEVERITY EMERGENCY 63271 LIAM SPRAGUE DEPT 1 1 EMERGENCY VISIT SERVICES [facility]IGH SEVERITY& [facility]AT [facility] 75489 RIGOBERTO ALVARADO 1 1 LEE ANN LEE ANN T VISIT 15 MINUTES EMERGENCY 78884 LIAM TRINH 1 1 EMERGENCY DEPARTMEN SERVICES T VISIT HIGH/URGE NT SEVERITY HOSPITAL RADHA - 1 1 [facility] OUTPATIEN INC T EMERGENCY 82334 RADHA 1 1 [facility] DEPARTMEN INC T VISIT LOW/MODER SEVERITY HOSPITAL RADHA - 1 1 [facility] OUTPATIEN INC T EMERGENCY 03894 RADHA 1 1 [facility] DEPARTMEN INC T VISIT LOW/MODER SEVERITY HOSPITAL RADHA - 1 1 [facility] OUTPATIEN INC T EMERGENCY 93737 LIAM JALLOH 1 1 EMERGENCY ISAAC DEPARTMEN SERVICES T VISIT HIGH/URGE NT SEVERITY EMERGENCY 62846 RADHA 1 1 [facility] DEPARTMEN INC T VISIT MODERATE SEVERITY EMERGENCY 82618 LIAM SPRAGUE 1 1 EMERGENCY DEPARTMEN SERVICES T VISIT HIGH/URGE NT SEVERITY HOSPITAL RADHA - 1 1 [facility] OUT[facility]EN INC T OFFICE 63881 ANALI YARA [facility] 1 1 MEDICAL T VISIT SERV 25 FOUNDATIO MINUTES HOSPITAL RADHA - 1 1 [facility] OUTPATIEN INC T EMERGENCY 92138 LIAM RODRIGUEZ DEPT 1 1 EMERGENCY III JUAN ANTONIO VISIT SERVICES HIGH SEVERITY& THREAT [facility] EMERGENCY 33505 RADHA 1 1 [facility] DEPARTMEN INC T VISIT HIGH/URGE NT SEVERITY HOSPITAL RADHA - 1 1 [facility] OUTPATIEN INC T EMERGENCY 82800 RADHA 1 1 [facility] DEPARTMEN INC T VISIT HIGH/URGE NT SEVERITY [facility]OSPITAL RADHA - 1 1 [facility] OUTPATIEN INC T EMERGENCY 51161 LIAM JALLOH DEPT 1 1 EMERGENCY ISAAC VISIT SERVICES HIGH SEVERITY& THREAT [facility] EMERGENCY 84200 LIAM TRINH 1 1 EMERGENCY DEPARTMEN SERVICES T VISIT HIGH/URGE NT SEVERITY EMERGENCY 02542 RADHA 1 1 [facility] DEPARTMEN INC T VISIT MODERATE SEVERITY [facility]OSPITAL RADHA - 1 1 [facility] OUTPATIEN INC T OFFICE 55323 RIGOBERTO ACUNAEN 1 1 LEE ANN LEE ANN T VISIT 15 MINUTES OFFICE 27855 RIGOBERTO ACUNAEN 1 1 LEE ANN LEE ANN T VISIT 15 MINUTES HOSPITAL RADHA - 1 1 [facility] OUTPATIEN INC T EMERGENCY 47110 LIAM RODRIGUEZ DEPT 1 1 EMERGENCY III JUAN ANTONIO VISIT SERVICES HIGH SEVERITY& THREAT [facility] EMERGENCY 72623 RADHA 1 1 [facility] DEPARTMEN INC T VISIT HIGH/URGE NT SEVERITY OFFICE 62015 RADHA ALVARADO [address] RADHA - 1 1 [facility] OUTPATIEN INC T EMERGENCY 33686 LIAM JALLOH DEPT 1 1 EMERGENCY ISAAC VISIT SERVICES HIGH SEVERITY& THREAT [facility] RADHA - 1 1 [facility] OUTPATIEN INC T EMERGENCY 09657 RADHA 1 1 [facility] DEPARTMEN INC T VISIT LOW/MODER SEVERITY OFFICE 43590 ANALI TO OUTHUBEREN 0 0 MEDICAL T VISIT SERV 25 FOUNDATIO MINUTES EMERGENCY 06971 LIAM JALLOH 0 0 EMERGENCY ISA[facility] DEPARTMEN SERVICES T VISIT HIGH/URGE NT SEVERITY OFFICE 00720 RIGOBERTO COBRINPATIEN 0 0 LEE ANN LEE ANN T VISIT 15 MINUTES OFFICE 01447 RIGOBERTO CORBINPATIEN 0 0 LEE ANN LEE ANN T VISIT 15 MINUTES EMERGENCY 08384 RADHA 0 0 [facility] DEPARTMEN INC T VISIT LIMITED/M INOR PROB EMERGENCY 39090 LIAM JALLOH 0 0 EMERGENCY [facility] DEPARTMEN SERVICES T VISIT HIGH/URGE NT SEVERITY HOSPITAL RADHA - 0 0 [facility] OUTPATIEN INC T OFFICE 97441 RIGOBERTO FRANKLIN OUTPATIEN 0 0 LEE ANN LEE ANN T VISIT 15 MINUTES OFFICE 58762 RIGOBERTO FRANKLIN OUTPATIEN 0 0 LEE ANN LEE ANN T VISIT 15 MINUTES OFFICE 39310 ANALI TO OUTPATIEN 0 0 MEDICAL T VISIT SERV 25 FOUNDATIO MINUTES HOSPITAL RADHA - 0 0 [facility]PAT[facility]EN INC T [facility]OSP[facility] RADHA - 0 0 [facility] OUTPATIEN INC T EMERGENCY 63245 LIAM JALLOH 0 0 EMERGENCY [facility] DEPARTMEN SERVICES T VISIT HIGH/URGE NT SEVERITY EMERGENCY 52532 RADHA 0 0 [facility] DEPARTMEN INC T VISIT LIMITED/M INOR PROB EMERGENCY 40181 RADHA 0 0 [facility] DEPARTMEN INC T VISIT LIMITED/M INOR PROB EMERGENCY 44679 LIAM JALLOH, 0 0 EMERGENCY [facility] T VISIT HIGH/URGE ASSOCIATE NT S SEVERITY HOSPITAL RADHA - 0 0 [facility] OUTPATIEN [facility] T OFFICE 35643 RIGOBERTO FRANKLIN OUTPATIEN 0 0 MAIRA Bernal T VISIT 15 MINUTES OFFICE 55867 RIGOBERTO FRANKLIN OUTPATIEN 0 0 MAIRA Bernal T VISIT 15 MINUTES EMERGENCY 01847 LIAM JALLOH, 0 0 EMERGENCY [facility] T VISIT HIGH/URGE ASSOCIATE NT S SEVERITY EMERGENCY 12671 RADHA 0 0 [facility] DEPARTMEN INC T VISIT LOW/MODER SEVERITY [facility]OSPITAL RAD[facility] - 0 0 [facility] OUTPATIEN INC T OFFICE 51655 RIGOBERTO FRANKLIN OUTPATIEN 0 0 MAIRA Bernal T VISIT 15 MINUTES OFFICE 62105 JENNY MORALES 0 0 MEDICAL [place] T VISIT SERV 25 FOUNDATIO MINUTES OFFICE 69618 RIGOBERTO FRANKLIN OUTPATIEN 0 0 MAIRA Bernal T VISIT 15 MINUTES HOSPITAL RADHA - 0 0 [facility] OUTPATIEN INC T EMERGENCY 07256 RADHA 0 0 [facility] DEPARTMEN INC T VISIT MODERATE SEVERITY EMERGENCY 74651 LIAM RODRIGUEZ DEPT 0 0 EMERGENCY III, VISIT SERVICES [facility] HIGH SEVERITY& ASSOCIATE THREAT S [facility] EMERGENCY 11596 LIAM RODRIGUEZ DEPT 0 0 EMERGENCY III, VISIT SERVICES [facility] SEVERITY& ASSOCIATE THREAT S [facility] RADHA - 0 0 [facility] OUTPATIEN INC T OFFICE 65722 RIGOBERTO FRANKLIN OUTPATIEN 0 0 MAIRA Bernal T VISIT 15 MINUTES HOSPITAL RADHA - 0 0 [facility] OUTPATIEN INC T EMERGENCY 27896 RAD[facility] 0 0 [facility] DEPARTMEN INC T VISIT MODERATE SEVERITY HOSPITAL RADHA - 9 9 [facility] OUTPATIEN INC T OFFICE 74676 RIGOBERTO FRANKLIN OUTPATIEN 9 9 MAIRA Bernal T VISIT 15 MINUTES OFFICE 88558 JENNY MORALES 9 9 MEDICAL [place] T VISIT SERV 15 FOUNDATIO MINUTES OFFICE 62702 PHYSICIAN JENNY BLOUNT 9 9 S KP Bernal T NEW 30 SERVICES MINUTES [facility] OFFICE 88406 RIGOBERTO FRANKLIN OUTPATIEN 9 9 MAIRA Bernal T VISIT 15 MINUTES EMERGENCY 56491 Kedar SELLERS 9 EMERGENCY [facility] SERVICES T VISIT MODERATE ASSOCIATE SEVERITY S HOSPITAL RADHA - 9 9 [facility] OUTPATIEN INC T OFFICE 67982 JENNY MORALES 9 9 PETRA SIMPSON T VISIT SERV 25 FOUNDATIO MINUTES OFFICE 13195 RIGOBERTO FRANKLIN OUTPATIEN 9 9 MAIRA Bernal T VISIT 15 MINUTES OFFICE 42072 RIGOBERTO FRANKLIN OUTPATIEN 9 9 MAIRA Bernal T VISIT 15 MINUTES HOSPITAL RADHA - 9 9 [facility] OUTPATIEN INC T EMERGENCY 98020 RADHA 9 9 [facility] T VISIT LIMITED/M INOR PROB EMERGENCY 30761 LIAM OAKLEY, [address] [facility] V[facility]IT HIGH/URGE ASSOCIATE NT S SEVERITY EMERGENCY 60387 LIAM JALLOH, 9 9 EMERGENCY [facility] T VISIT MODERATE ASSOCIATE SEVERITY S EMERGENCY 46434 RADHA 9 9 [facility] T VISIT LOW/MODER SEVERITY [facility]OSPITAL RADHA - 9 9 [facility] OUTPATIEN INC T OFFICE 00785 RIGBOERTO FRANKLIN OUTPATIEN 9 9 MAIRA Bernal T VISIT 15 MINUTES OFFICE 99816 SIENNA EL OUTPATIEN 9 9 KP KP T VISIT 25 MINUTES HOSPITAL RADHA - 9 9 [facility] OUTPATIEN INC T OFFICE 45100 RIGOBERTO FRANKLIN OUTPATIEN 9 9 MAIRA Bernal T VISIT 15 MINUTES OFFICE 76831 SIENNA EL CONSULTAT 9 9 KP GOODRICH ION NEW/ESTAB PATIENT 80 MIN HOSPITAL RADHA - 9 9 [facility] OUTPATIEN INC T OFFICE 14773 JENNY MORALES 9 9 MEDICAL [place] T VISIT SERV 25 FOUNDATIO MINUTES HOSPITAL RADHA - 9 9 [facility] OUTPATIEN INC T EMERGENCY 40704 LIAM FISHMAN, 9 9 EMERGENCY [facility] DEPARTMEN SERVICES O T VISIT HIGH/URGE ASSOCIATE NT S SEVERITY HOSPITAL RAD[facility] - 9 9 [facility] OUTPATIEN INC T EMERGENCY 67092 RAD[facility] 9 9 [facility] DEPARTMEN INC T VISIT LIMITED/M INOR PROB OFFICE 65164 RIGOBERTO FRANKLIN OUTPATIEN 9 9 MAIRA Bernal T VISIT 15 MINUTES EMERGENCY 72886 LIAM JALLOH, 9 9 EMERGENCY [facility] SERVICES T VISIT MODERATE ASSOCIATE SEVERITY S HOSPITAL RADHA - 9 9 [facility] OUTPATIEN INC T EMERGENCY 16708 RAD[facility] 9 9 [facility] DEPARTMEN INC T VISIT LOW/MODER SEVERITY OFFICE 22035 RIGOBERTO FRANKLIN OUTPATIEN 9 9 MAIRA Bernal T VISIT 15 MINUTES EMERGENCY 85377 [facility], 9 9 [facility] EMERGENCY T VISIT PHYS INC HIGH/URGE NT SEVERITY HOSPITAL RADHA - 9 9 [facility] OUTPATIEN INC T EMERGENCY 39876 LIAM CARRION, DEPT 9 9 EMERGENCY [place] VISIT SERVICES HIGH SEVERITY& ASSOCIATE THREAT S [facility] EMERGENCY 71926 RADHA 9 9 [facility] DEPARTMEN INC T VISIT MODERATE SEVERITY OFFICE 86401 RIGOBERTO FRANKLIN OUTPATIEN 9 9 MAIRA Bernal T VISIT 15 MINUTES OFFICE 36965 JENNY MORALES 9 9 PETRA CALVIN T VISIT SERV 25 FOUNDATIO MINUTES HOSPITAL RAD[facility] - 9 9 [facility] OUTPATIEN INC T OFFICE 82980 RIGOBERTO FRANKLIN OUTPATIEN 9 9 MAIRA Bernal T VISIT 15 MINUTES HOSPITAL RAD[facility] - 9 9 [facility] OUTPATIEN INC T EMERGENCY 48319 [facility] 9 9 [facility] DEPARTMEN INC T VISIT LOW/MODER SEVERITY EMERGENCY 07163 LIAM OAKLEY, 9 9 EMERGENCY JUDAH P DEPARTMEN SERVICES T VISIT MODERATE ASSOCIATE SEVERITY S HOSPITAL RAD[facility] - 9 9 [facility] OUTPATIEN INC T OFFICE 23462 RIGOBERTO FRANKLIN OUTPATIEN 9 9 MAIRA Bernal T VISIT 15 MINUTES [facility]OSP[facility] - 9 9 [facility] EMERGENCY 05648 MARLEN COOPER DEPT 9 9 [facility] [place] VISIT EMERGENCY HIGH PHYS INC SEVERITY& THREAT FUNCJ OFFICE 45491 RIGOBERTO FRANKLIN OUTPATIEN 9 9 MAIRA Bernal T VISIT 15 MINUTES [facility]OSPITAL [facility] - 9 9 [facility] T EMERGENCY 30839 LIAM JALLOH, 9 9 EMERGENCY SARAH S DEPARTMEN SERVICES T VISIT HIGH/URGE ASSOCIATE NT S SEVERITY EMERGENCY 32760 [facility] 9 9 [facility] T VISIT LOW/MODER SEVERITY OFFICE 33955 RIGOBERTO FRANKLIN OUTPATIEN 9 9 MAIRA Bernal T VISIT 15 MINUTES [facility]OSP[facility] - 9 9 [facility] T EMERGENCY 24430 LIAM OAKLEY DEPT 9 9 EMERGENCY JUDAH P VISIT SERVICES HIGH SEVERITY& ASSOCIATE THREAT S FUNCJ EMERGENCY 92984 [facility] 9 9 [facility] T VISIT HIGH/URGE NT SEVERITY OFFICE 52902 RIGOBERTO FRANKLIN OUTPATIEN 9 9 MAIRA Bernal T VISIT 15 MINUTES EMERGENCY 51949 [facility] 9 9 [facility] T [facility]ISIT LOW/MODER [facility]VERITY [facility]OSP[facility] - 9 9 [facility] T EMERGENCY 76367 JOSE JALLOH, 9 9 [facility] VISIT ON HIGH/URGE NT SEVERITY OFFICE 75398 WOMEN'S DELCID, CONSULTAT 9 9 [facility] NEW/ESTAB PATIENT RIKKI 60 MIN [facility] EMERGENCY 30131 MARLEN GERMAN DEPT 9 9 [facility] [place] VISIT EMERGENCY HIGH PHYS INC SEVERITY& THREAT FUNCJ OFFICE 57714 RIGOBERTO FRANKLIN OUTPATIEN 9 9 MAIRA Bernal T VISIT 15 MINUTES EMERGENCY 34369 JOSE JALLOH, 9 9 [facility] T VISIT ON LOW/MODER SEVERITY [facility]OSPITAL [facility] - 9 9 [facility] T EMERGENCY 36886 RAD[facility] 9 9 [facility] INC T VISIT LIMITED/M INOR PROB OFFICE 15933 RIGOBERTO FRANKLIN OUTPATIEN 9 9 MAIRA Bernal T VISIT 15 MINUTES EMERGENCY 91219 [facility] 9 9 [facility] INC T VISIT LOW/MODER SEVERITY EMERGENCY 06056 JOSE JALLOH, 9 [facility]ERATE SEVERITY [facility] - 9 9 [facility] T OFFICE 90739 RIGOBERTO FRANKLIN OUTPATIEN 9 9 MAIRA Bernal T VISIT 15 MINUTES EMERGENCY 07292 MARLEN VENTURA DEPT 9 9 [facility] [place] VISIT EMERGENCY HIGH PHYS INC SEVERITY& THREAT FUNCJ EMERGENCY 22530 [facility] 9 9 [facility] DEPART[facility] INC T VISIT LIMITED/M INOR PROB EMERGENCY 55769 JOSE JALLOH, 9 9 [facility] T VISIT ON MODERATE SEVERITY [facility]OSPITAL [facility] - 9 9 [facility] T OFFICE 87264 RIGOBERTO FRANKLIN OUTPATIEN 8 8 MAIRA Bernal T VISIT 15 MINUTES OFFICE 75046 RIGOBERTO FRANKLIN OUTPATIEN 8 8 MAIRA Bernal T VISIT 15 MINUTES OFFICE 48478 JENNY MORALES 8 8 [facility] T VISIT SERV 15 FOUNDATIO MINUTES HOSPITAL [facility] - 8 8 [facility] T OFFICE 45953 RIGOBERTO FRANKLIN OUTPATIEN 8 8 MAIRA RAO W T VISIT 15 MINUTES OFFICE 68131 RIGOBERTO FRANKLIN OUTPATIEN 8 8 MAIRA RAO W T VISIT 15 MINUTES OFFICE 74892 WENDY CORBINPATIBROOKE 8 8 , CALEB ELLIS T VISIT 15 MINUTES [facility]OSPITAL [facility] - 8 8 [facility] T OFFICE 77073 WENDY NGUYEN CONSULTAT 8 8 , CALEB ELLIS ION NEW/ESTAB PATIENT 60 MIN OFFICE 91655 RIGOBERTO FRANKLIN OUTPATIEN 8 8 MAIRA Bernal T VISIT 15 MINUTES [facility]OSPITAL [facility] - 8 8 [facility] T EMERGENCY 44087 [facility] 8 8 [facility] T VISIT HIGH/URGE NT SEVERITY OFFICE 06055 JENNY MORALES 8 8 [facility] T VISIT SERV 25 FOUNDATIO MINUTES OFFICE 53634 RIGOBERTO FRANKLIN OUTPATIEN 8 8 MAIRA Bernal T VISIT 15 MINUTES OFFICE 25309 RIGOBERTO FRANKLIN OUTPATIEN 8 8 MAIRA Bernal T VISIT 15 MINUTES HOSPITAL [facility] - 8 8 [facility] T EMERGENCY 29796 [facility] 8 8 [facility] DEPART[facility] T VISIT LIMITED/M INOR PROB OFFICE 68062 RIGOBERTO FRANKLIN OUTPATIEN 8 8 MAIRA Bernal T VISIT 15 MINUTES OFFICE 97300 JENNY MORALES 8 8 [facility] T VISIT SERV 25 FOUNDATIO MINUTES EMERGENCY 84333 UNIVERSIT DEPT 8 8 Y VISIT HOSPITAL HIGH SEVERITY& THREAT [facility], [facility] - 8 8 Y [facility] T EMERGENCY [id number] ANALI RYAN, 8 8 MEDICAL ADRINA T DEPARTMEN SERV T VISIT FOUNDATIO HIGH/URGE NT SEVERITY OFFICE [id number] RIGOBERTO FRANKLIN OUTPATIEN 8 8 MAIRA Bernal T VISIT 15 MINUTES EMERGENCY [id number] RAD[facility] 8 8 [facility]PART[facility] T VISIT LIMITED/M [facility] PROB [facility] - 8 8 [facility] 8 8 [facility] - 8 8 [facility] INC T EMERGENCY 31258 RAD[facility] 8 8 [facility] DEPARTMEN INC T VISIT MODERATE SEVERITY HOSPITAL [facility] - 8 8 [facility] T EMERGENCY 83927 JOSE CARRION, 8 8 [facility] [place] [facility] T VISIT ON HIGH/URGE NT SEVERITY HOSPITAL [facility] - 8 8 [facility] OUTPAT[facility] T EMERGENCY 94379 [facility] 8 8 [facility] T VISIT HIGH/URGE NT SEVERITY OFFICE 00446 JENNY MORALES 8 8 [facility] T VISIT SERV 15 FOUNDATIO MINUTES OFFICE [id number] RIGOBERTO FRANKLIN OUTPATIEN 8 8 MAIRA Bernal T VISIT 15 MINUTES HOSPITAL [facility] - 8 8 [facility] T EMERGENCY 83251 RADHA 8 8 [facility] T VISIT LIMITED/M [facility] - 8 8 [facility] T EMERGENCY 51346 RADHA 8 8 [facility] INC T VISIT LOW/MODER SEVERITY OFFICE 99444 JENNY MORALES 8 8 [facility] T VISIT SERV 25 FOUNDATIO MINUTES HOSPITAL [facility] - 8 8 [facility] T EMERGENCY 03956 [facility] 8 8 [facility] T VISIT LOW/MODER SEVERITY [facility]OSPITAL [facility] - 8 8 [facility] T OFFICE 35401 [facility] , CALEB ELLIS ION NEW/ESTAB PATIENT 30 MIN EMERGENCY 96299 RADHA 8 8 [facility] DE[facility] INC T VISIT LOW/MODER SEVERITY HOSPITAL [facility] - 8 8 [facility] T [facility]OSPITAL RAD[facility] - 8 8 [facility] T EMERGENCY 17813 RADHA 8 8 [facility] DEPART[facility] INC T VISIT LOW/MODER SEVERITY OFFICE 38486 RIGOBERTO FRANKLIN OUTPATIEN 8 8 MAIRA Bernal T VISIT 15 MINUTES HOSPITAL [facility] - 8 8 [facility] T EMERGENCY 13504 RADHA 8 8 [facility] DEPARTMEN INC T VISIT LIMITED/M INOR PROB OFFICE [id number] YARA LIVINGSTON OUTPATIEN 8 8 [place] T VISIT 25 MINUTES HOSPITAL [facility] - 8 8 [facility] INC T EMERGENCY 73169 RADHA 8 8 [facility] DE[facility] INC T VISIT LOW/MODER SEVERITY HOSPITAL [facility] - 8 8 [facility] T OFFICE [id number] JENNY MORALES 8 8 [facility] T VISIT SERV 15 FOUNDATIO MINUTES EMERGENCY 79964 RADHA 8 8 [facility] T VISIT LIMITED/M INOR PROB HOSPITAL RADHA - 8 8 [facility]EN [facility] T OFFICE 06593 RIGOBERTO FRANKLIN OUTPATIEN 8 8 MAIRA RAO W T NEW 30 MINUTES EMERGENCY 09692 RADHA GILLIAM, 8 8 [facility] T VISIT PROF SERV MODERATE SEVERITY EMERGENCY 03799 RADHA 8 8 [facility] T VISIT LOW/MODER SEVERITY HOSPITAL RADHA - 8 8 [facility]EN [facility] T HOSPITAL RADHA [facility] 8 8 [facility] INC T EMERGENCY 52190 RADHA 8 8 [facility] T VISIT LOW/MODER SEVERITY EMERGENCY 97510 RADHA GILLIAM, 8 8 [facility] T VISIT PROF SERV MODERATE SEVERITY HOSPITAL RADHA - 8 8 [facility]EN [facility] T EMERGENCY 35873 RADHA 8 8 [facility] T VISIT LOW/MODER SEVERITY OFFICE 55915 JENNY MORALES 8 8 [facility] T VISIT SERV 25 FOUNDATIO MINUTES [facility] RADHA - Donn 8 [facility] OUTPATIEN INC T EMERGENCY 78293 RADHA CARRION, 8 8 [facility] T VISIT PROF SERV MODERATE SEVERITY [facility] RADHA - 8 8 [facility]EN INC T
--- OUTSIDE RECORDS SUMMARY | 2016-09-15 15:35 | External Medical Summary Rpt ---
Demographics Preferred Language Arabic Marital Status Unknown Orthodox Affiliation Unknown Race Unknown Ethnic Group Unknown Author Author , LOLIS PATRICIO Address Unknown Phone Immunization Unable to retrieve immunization data due to connection failure with Immunization Registry. Please try again later.
--- OUTSIDE RECORDS SUMMARY | 2016-09-15 15:35 | External Medical Summary Rpt ---
Author Author SINTIA Chan, SINTIA Chan Organization [employer] Address Unknown Phone Unavailable
--- OUTSIDE RECORDS SUMMARY | 2016-09-15 15:35 | External Medical Summary Rpt ---
Demographics Preferred Language Greek Marital Status Unknown Jain Affiliation Unknown Race Unknown Ethnic Group Unknown Author Author , LOLIS PATRICIO Address Unknown Phone Immunization Unable to retrieve immunization data due to connection failure with Immunization Registry. Please try again later.
== END 2016-09-15 15:12 | disposition home or self-care (01) ==
LOC: ER 14:10
DX: M41.9 Scoliosis, unspecified (principal); S33.5XXA Sprain of ligaments of lumbar spine, initial encounter; J44.9 Chronic obstructive pulmonary disease, unspecified; Z72.0 Tobacco use
CPT/HCPCS: J1040

== ENCOUNTER 2016-12-07 18:42 | Emergency (ER) | payer MEDICAID ==
[~2016-12-07] VITALS: Ht 172.7 cm; Wt 43.1 kg
[~2016-12-07 18:42] MED LIST changes: +CELEXA40 MG PO; +DIAZEPAM2 MG PO; +DICLOFENAC 50MG50 MG PO; +FERROUS SULFAT325 M2 PO; +FLUTICASONE 50M16 GM; +IPRATROPIUM BROM3 M1 IH; +METHOCARBAMOL500 MG PO; +OMEPRAZOLE40 MG PO; +TOPIRAMATE 25MG25 MG PO; +TOPROL XL 25MG25 MG PO; +VENTOLIN H0.09 MG/AC IH
--- NOTE | 2016-12-07 19:12 | Emergency Room Report ---
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 N Clinical Suspician of Infection? N Mental Status: 1 - Regular (Normal Baseline) Sepsis Risk:Low Sepsis Risk Have you (or family members/close friends) recently traveled outside the [place]? N If Yes, where/when: Have you had exposure to infectious disease within the past month? N TB? Other? Specify: Patient complains of LEFT rib pain moderate soreness no radiation, worse with coughing, for the past 2 days she states she's been coughing for the past couple days bringing up some yellow phlegm she states she's had some feverishness denies any chills she states she feels like her LEFT ribs are sore she denies any abdominal pain or vomiting she states she has a mild headache she denies any calf pain (Edin MAYORGA, Amauri) ALLERGIES Coded Allergies: naratriptan (SEVERE CHEST PAIN/TIGHTNESS (ALMOST HAD A HEART ATTACK) 08/09/15) Home Medications Reported Medications DICYCLOMINE HCL (Bentyl) 10 MG PO TID METHOCARBAMOL (Methocarbamol) 500 MG PO QID Topiramate (Topiramate 25MG Tablet) 25 MG PO QHS CITALOPRAM HYDROBROMIDE (Citalopram HBr) 40 MG PO DAILY Ferrous Sulfate (Ferrous Sulfate 325MG) 325 MG PO DAILY FLUTICASONE PROPIONATE (Fluticasone 50MCG Nasal [place]) 1 SPRAY NA BID Omeprazole (Omeprazole 40MG) 20 MG PO DAILY ALBUTEROL-IPRATROPIUM (Iprat-Albut 0.5-3(2.5) MG/3 Ml) 3 ML IH QID ALBUTEROL (Ventolin Hfa) 2 PUFF IH Q6H6 (Kena MAYORGA,Michael Saavedra) History Medical History General CAD? No Angina: No [place]: No Hypertension? No Hyperlipidemia? No CHF? No DVT? No PE? No COPD? Yes Asthma? No Anemia? No GERD? Yes Gastric ulcers? No GI Bleed? No Hernia? No Thyroid Problems? No Hypothyroidism? No CVA? No Seizures? No Diabetes? No Insulin Dependent: No Insulin Pump: No Home FSBS? No Renal Insuffiency? No End Stage Renal Disease? No UTI? No Stones? No BPH? No GB Disease: No Nephritic Syndrome? No Asplenia? No Hepatitis? No Sickle Cell Disease? No Arthritis? Yes Migraines? Yes Cataracts? No Glaucoma? No MRSA? No HIV? No TB? No Anxiety? Yes Depression? Yes Cancer? No More? Yes Additional hx: SCOLIOSIS, DDD Immunization Hx DT/Tetanus > 10 Years Ago Flu [id number] Flu Season Pneumonia 02/23/14 Surgical Hx Previous Surgery?Y X2 HYSTERECTOMY COLON RESECTION SMALL BOWEL RESECTION HERNIA REPAIRS EPIGASTRIC HERNIA REPAIR X 2. 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 LMP N/A Family History Family Hx Diabetes No CAD No Hypertension No Hyperlipidemia No Cancer Yes TB No Social History Smoking Hx Smoker: Current Every Day Smoker Tobacco: Yes Type Cigarettes Packs/day < 1 Pack Alcohol Alcohol: No (Amauri Jesus MD) Social History Drugs none (Michael Escudero MD) Review of Systems All Other Systems Reviewed and Negative (Amauri Jesus MD) Skin denies rash (Michael Escudero MD) Physical Exam Vital Signs Vital Signs Date Time Temp Pulse Resp B/P Pulse O2 O2 Flow FiO2 Ox Delivery Rate 12/079 98.7 110 18 108/62 100 General Appearance: Nontoxic coughing congested Head: Normocephalic, without obvious abnormality, atraumatic. Eyes: conjunctiva/corneas clear ENT: Mucous membranes moist. Neck: No jugular venous distention. Cardiac: regular rate and rhythm Lungs: rhonchi to auscultation bilaterally Abdomen: Nontender, Nondistended, positive bowel sounds, no rebound : No CVA tenderness Extremities: no edema Musculoskeletal: + chest wall tenderness on the LEFT side No Homans sign No calf tenderness No swelling in legs Skin: No rashes or lesions to exposed skin. Neurologic: Alert. No gross focal deficits Psychiatric: Normal affect (Amauri Jesus MD) General Appearance normal appearance Respiratory Status No: respiratory distress. Cardiovascular normal exam Neurologic alert (Amauri Jesus MD) Medical Decision Making LABS/Meds/Orders Pt receiving controlled substance in ED? No Comment initial workup ordered, care transfer to Dr. Escudero at 8pm eastern. followup of testing results and further workup as felt indicated. Results/Orders Laboratory Tests 12/07/16 1855: Sodium 139, Potassium 3.3 L, Chloride 104, Carbon Dioxide 29, BUN 13, Creatinine 0.9, Estimated Creat Clear 54, Estimated GFR (MDRD) 68, Glucose 148 H, Calcium 9.6, Total Bilirubin 0.3, AST 38 H, ALT 56, Alkaline Phosphatase 111 , Troponin I < 0.02, B-Natriuretic Peptide 5, Total Protein 7.5, Albumin 4.0, Globulin 3.5 H, Albumin/Globulin Ratio 1.1, WBC 7.5, RBC 3.99 L, Hgb 12.5, Hct 40.5, MCV 101.5 H, RDW 12.0, Plt Count 317, MPV 7.9, Gran % 66.5, Gran # 5.0, Lymphocytes % 26.0, Monocytes % 4.1, Eosinophils % 2.8, Basophils % 0.6, Lymphocytes # 2.0, Monocytes # 0.3, Eosinophils # 0.2, Basophils # 0.0, PUBS MCHC 31.0 L, MCH 31.4 H Current Medication Orders Sig/Nina Start time Last Medication Dose Route Stop Time Status Admin Ondansetron HCl 4 MG ONCE ONE 12/08 1999 DC PO 12/07 2000 Albuterol/Ipratropium 0 .STK-MED ONE 12/07 1950 DC INH Albuterol/Ipratropium 0 .STK-MED ONE 12/07 194 DC INH Albuterol/Ipratropium 3 ML ONCE ONE 12/07 1914 DC 12/07 INH 12/08 1915 193 Orders Procedure Date/time Status RT REQUEST DUONEB 12/07 1913 Active CHEST(2 VIEWS-NOT PORTABLE) 12/07 1913 Active CULTURE, BLOOD 12/07 1913 Active TROPONIN I 12/07 1913 Complete CBC WITH AUTO DIFF 12/07 1913 Complete CHEM 12 PROFILE 12/07 1913 Complete BRAIN NATRIURETIC PEPTIDE 12/07 1913 Complete Departure Departure Clinical Impression Primary Impression: Bronchitis Secondary Impressions: Chest pain Qualifiers: Chest pain type: unspecified Qualified Code: R07.9 - Chest pain, unspecified Condition STABLE ED Critical Care Critical Care No (Amauri Jesus MD) Departure Time of Disposition 1999 Disposition DC Home or Self Care(routine) Patient Instructions DI for Cough -- Adult Additional Instructions use meds and see pcp for follow up Discharge Counseling Counseled pt/family regarding diagnosis, test results, medications/RX, follow up needs Prescriptions Current Visit Scripts Azithromycin (Zithromycin (Z-BRIANNA) 250MG Tab) 250 MG PO DAILY #6 TAB TAKE TWO (2) TABLETS ON DAY 1, THEN ONE (1) TABLET DAY #2 THRU #5 (Michael Escudero MD) at 1954 at 2000
[2016-12-07 19:21] LABS: HEMOGLOBIN 12.5 g/dL (12.2-16.2)
[2016-12-07 19:34] LABS: BUN 13 mg/dL (7-18); GFR (ESTIMATED) 68 ML/MIN (59-)
[2016-12-07] MEDS ORDERED: ZITHROMAX Z PA250 MG PO (20:01)
[2016-12-07 20:16] VITALS: BP 95/54
--- NOTE | 2016-12-08 13:20 | RADIOLOGY REPORT PS360 ---
CHEST(2 VIEWS-NOT PORTABLE) HISTORY: cough short of breath Patient Age: 46 years: Female Ordering Physician: Michael Escudero MD TECHNIQUE: PA and lateral chest COMPARISON : FINDINGS Lungs are hyperexpanded IMPRESSION: CHEST(2 VIEWS-NOT PORTABLE) Ordering physician: Michael Escudero MD Age: 46 years Female INDICATION: chest symptomscough PROCEDURE: CHEST(2 VIEWS-NOT PORTABLE) FINDINGS: Previous chest film from 11/18/2015 useful comparison Lungs hyperexpanded reflecting COPD. Nothing definite acute. Minimal density behind the left clavicle most likely related to apical pleural parenchymal scarring and stable since previous 2016 CXR. Minimal density at the right first rib and appear stable as well. Overall nothing definitely acute. No pneumothorax. No pleural effusion. Modest size heart. Normal pulmonary vascularity. Hilar and mediastinal structures appear stable & satisfactory. Chest wall unremarkable. T-spine intact. IMPRESSION ----- nothing definitely acute. The lungs appear clear. Hyperexpanded with underlying COPD.
== END 2016-12-07 20:16 | disposition home or self-care (01) ==
LOC: ER 18:42
PROVIDERS: Emergency Medicine
DX: J20.9 Acute bronchitis, unspecified (principal); R07.9 Chest pain, unspecified; K21.9 Gastro-esophageal reflux disease without esophagitis; J44.9 Chronic obstructive pulmonary disease, unspecified; F41.8 Other specified anxiety disorders; F17.210 Nicotine dependence, cigarettes, uncomplicated; Z88.6 Allergy status to analgesic agent

== ENCOUNTER → 2016-12-11 | Day surgery (SDC) | payer MEDICAID ==
[~2016-12-11] VITALS: Ht 172.7 cm; Wt 43.1 kg
[~2016-12-11] MED LIST changes: +ROBAXIN 500 MG500 MG PO
[2016-12-11 13:03] VITALS: BP 93/53
[2016-12-11 13:08] VITALS: BP 93/53
[2016-12-11 13:12] VITALS: BP 94/55
--- NOTE | 2016-12-11 13:14 | Procedure Note ---
Procedure detail Date of procedure: 12/11/16 Anesthesiologist: Carmelo Banuelos Complications: None Pre-procedure diagnosis: Myofascial pain syndrome bilateral thoracic paraspinous muscles. Post-procedure diagnosis: Same Indications for procedure: Very pleasant 46-year-old white female that presents to our procedural clinic today for bilateral thoracic paraspinous muscle trigger point injections. She has extreme point tenderness on examination over the bilateral thoracic paraspinous muscles. Procedure detail: Details of the procedure were explained to the patient. The patient taken to procedure room and placed in a sitting position. The area over the thoracic spine was cleansed using chlorhexidine as a cleansing solution. Using a 25-gauge needle 3 separate areas were accessed on the RIGHT and LEFT thoracic paraspinous muscle injecting 2 mL at each site. The injectate consisted of 0.25 percent Marcaine +1 percent lidocaine and 40 mg of Depo-Medrol. Patient tolerated the procedure without difficulty. There were no complications. Plan and disposition: Patient tolerated the procedure without difficulty. She reports 75 percent improvement terms of her thoracic back pain 15 minutes post procedure. She'll return to see us in the clinic for further evaluation. at 1314
[2016-12-11 13:18] VITALS: BP 90/51
== END ==
LOC: PM 12:18
PROC: 3E0233Z Introduction of Anti-inflammatory into Muscle, Percutaneous Approach (ICD-10-PCS; principal; 2016-12-11)
PROC: 3E023BZ Introduction of Anesthetic Agent into Muscle, Percutaneous Approach (ICD-10-PCS; 2016-12-11)
DX: M79.1 Myalgia (principal)
CPT/HCPCS: J1040

== ENCOUNTER 2016-12-21 17:52 | Emergency (ER) | payer MEDICAID ==
[~2016-12-21] VITALS: Ht 172.7 cm; Wt 44.0 kg
[~2016-12-21 17:52] MED LIST changes: -ROBAXIN 500 MG500 MG PO
[2016-12-21 19:18] LABS: HEMOGLOBIN 13.3 g/dL (12.2-16.2); LYMPH # 1.9 K/mm3 (0.7-4.5); LYMPH % 19.3 % (10-50.0)
--- NOTE | 2016-12-21 19:27 | Emergency Room Report ---
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 N Clinical Suspician of Infection? N Mental Status: 1 - Regular (Normal Baseline) Sepsis Risk:Possible Sepsis Risk Have you (or family members/close friends) recently traveled outside the [facility]? N If Yes, where/when: Have you had exposure to infectious disease within the past month? TB? Other? Specify: Comment The patient complains of a 2 day history of pain across her mid and lower abdomen and in her "rib", pointing to her LEFT costal margin. She is had nausea and vomiting. She has a history of Crohn's disease, although says not on current treatment for that. She has had multiple abdominal surgeries including bowel resection. She says that she was living in [facility] until today, just moved back with her daughter today, does not have a physician here. She had moved to [facility] about a year ago. ALLERGIES Coded Allergies: naratriptan (SEVERE CHEST PAIN/TIGHTNESS (ALMOST HAD A HEART ATTACK) 08/09/15) Home Medications Active Scripts Azithromycin (Zithromycin (Z-BRIANNA) 250MG Tab) 250 MG PO DAILY #6 TAB Prov: 12/07/16 Reported Medications DICYCLOMINE HCL (Bentyl) 10 MG PO TID METHOCARBAMOL (Methocarbamol) 500 MG PO QID Topiramate (Topiramate 25MG Tablet) 25 MG PO QHS CITALOPRAM HYDROBROMIDE (Citalopram HBr) 40 MG PO DAILY Ferrous Sulfate (Ferrous Sulfate 325MG) 325 MG PO DAILY FLUTICASONE PROPIONATE (Fluticasone 50MCG Nasal [place]) 1 SPRAY NA BID Omeprazole (Omeprazole 40MG) 20 MG PO DAILY ALBUTEROL-IPRATROPIUM (Iprat-Albut 0.5-3(2.5) MG/3 Ml) 3 ML IH QID ALBUTEROL (Ventolin Hfa) 2 PUFF IH Q6H6 (Renusch MD, Jey) Source patient, RN notes reviewed, family, old records Exam Limitations no limitations Cardiac Chest Pain Chest pain indicative of cardiac No Timing/Duration this evening Severity moderate (Michael Escudero MD) History Medical History General CAD? No Angina: No [place]: No Hypertension? No Hyperlipidemia? No CHF? No DVT? No PE? No COPD? Yes Asthma? No Anemia? No GERD? Yes Gastric ulcers? No GI Bleed? No Hernia? No Thyroid Problems? No Hypothyroidism? No CVA? No Seizures? No Diabetes? No Insulin Dependent: No Insulin Pump: No Home FSBS? No Renal Insuffiency? No End Stage Renal Disease? No UTI? No Stones? No BPH? No GB Disease: No Nephritic Syndrome? No Asplenia? No Hepatitis? No Sickle Cell Disease? No Arthritis? Yes Migraines? Yes Cataracts? No Glaucoma? No MRSA? No HIV? No TB? No Anxiety? Yes Depression? Yes Cancer? No More? Yes Additional hx: SCOLIOSIS, DDD Immunization Hx DT/Tetanus > 10 Years Ago Flu [id number] Flu Season Pneumonia 02/23/14 Surgical Hx Previous Surgery?Y X2 HYSTERECTOMY COLON RESECTION SMALL BOWEL RESECTION HERNIA REPAIRS EPIGASTRIC HERNIA REPAIR X 2. 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 Skin denies rash (Michael Escudero MD) Physical Exam Vital Signs Vital Signs Date Time Temp Pulse Resp B/P Pulse O2 O2 Flow FiO2 Ox Delivery Rate 12/21 1958 98.7 83 20 119/47 99 12/21 1846 98.9 91 20 151/110 97 12/21 1758 98.8 113 18 128/95 99 General Appearance no apparent distress, cachetic Eye Exam - bilateral eye normal exam, bilateral eye PERRL, bilateral eye EOMI Ear, Nose, Throat hearing grossly normal, edentulous Neck normal inspection, non-tender, supple, full range of motion Respiratory Status Yes: trachea midline, chest symmetrical, non tender chest. No: respiratory distress. Lung Sounds bilateral: normal breath sounds, lungs clear. Cardiovascular normal exam, regular rate/rhythm, no peripheral edema, no gallop, no JVD, no murmur, no rub, normal peripheral pulses Peripheral Pulses Pulses normal Yes Gastrointestinal normal bowel sounds, soft, no organomegaly, multiple surgical scars, generalized tenderness., abdomen very soft Back normal inspection, no CVA tenderness, no vertebral tenderness Extremities non-tender, normal range of motion, normal inspection Neurologic alert, normal exam, oriented x 3 Mental status normal mood/affect Skin intact, normal color, warm/dry (Glenny MAYORGA, Jey) - WBC >12,000 or <4,000 or 10% bands? 2 or more SIRS Criteria Met? B/P:119/47 MAP:123 Creatinine >2.0? UA output<0.5ml/kg/hr for 2 hrs? Platelet count >100,000? Lactate >2.0mmol/1? INR >1.2 or PTT > than 60 sec? Evidence of Organ Dysfunction? Provider documented clinical suspician of infection? N Sepsis Criteria Count: 2 Sepsis Risk: Possible Sepsis Risk Strength 4 Upper Ext (L), 4 Upper Ext (R), 4 Lower Ext (L), 4 Lower Ext (R) (Kena MAYORGA,Michael Saavedra) Medical Decision Making LABS/Meds/Orders Pt receiving controlled substance in ED? No Fitz was queried for this patient? Yes Comment [id number] rxs. last rx 10 vicodin on 10/12/16. Results/Orders Laboratory Tests 12/21/16 1910: Sodium 136, Potassium 3.6, Chloride 102, Carbon Dioxide 28, BUN 22 H, Creatinine 0.7, Estimated Creat Clear 71, Estimated GFR (MDRD) 91, Glucose 92, Calcium 9.7, Total Bilirubin 0.4, AST 12 L, ALT 32, Alkaline Phosphatase 99, Total Protein 7.6, Albumin 4.4, Globulin 3.2, Albumin/Globulin Ratio 1.4, Amylase 72, Lipase 185, WBC 10.1, RBC 4.21, Hgb 13.3, Hct 42.2, MCV 100.2 H, RDW 12.3, Plt Count 272, MPV 7.7, Gran % 74.6, Gran # 7.5, Lymphocytes % 19.3, Monocytes % 4.9, Eosinophils % 0.8, Basophils % 0.5, Lymphocytes # 1.9, Monocytes # 0.5, Eosinophils # 0.1, Basophils # 0.1, PUBS MCHC 31.6 L, MCH 31.6 H Current Medication Orders Sig/Nina Start time Last Medication Dose Route Stop Time Status Admin Sodium Chloride 10 ML PRN PRN 12/21 1914 AC IV 12/22 1912 Orders Procedure Date/time Status DIET-NOTHING BY MOUTH 12/[address] ABD & PELVIS W/O CONTRAST 12/[address] ABD/PELVIS REQ 12/21 1912 Complete IV SALINE LOCK 12/21 1912 Active URINALYSIS/COMPLETE 12/21 1912 Active LIPASE 12/21 1912 Complete CBC WITH AUTO DIFF 12/21 1912 Complete CHEM 12 PROFILE 12/21 1912 Complete AMYLASE 12/21 1912 Complete Progress - 8:15 PM: At shift change, I have discussed the patient with Dr. Escudero, who will assume care of the patient at this time. I have discussed all clinical information including history, physical and diagnostic study results. Preliminary diagnoses based on information available at this point have been recorded by me. Controlled substance administration and critical care statement are also preliminary, as of the time of handoff. (Jey Murrieta MD) LABS/Meds/Orders Pt receiving controlled substance in ED? No XRAY/CT/US XRAY/CT/US CT abdomen, pelvis CT interpretation by discussed w/radiologist Time results known: 2108 CT Results abnormal (see report) (Michael Escudero MD) Departure Departure Clinical Impression Primary Impression: Abdominal pain Qualifiers: Abdominal location: generalized Qualified Code: R10.84 - Generalized abdominal pain Condition STABLE Referrals DONTRELL LORENZANA (Family) ED Critical Care Critical Care No (Jey Murrieta MD) Departure Disposition DC Home or Self Care(routine) Patient Instructions DI for Abdominal Pain-Adult Additional Instructions see pcp for follow up Discharge Counseling Counseled pt/family regarding diagnosis, medications/RX (Michael Escudero MD) at 2020 at 8295
--- NOTE | 2016-12-21 19:27 | Emergency Room Report ---
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 N Clinical Suspician of Infection? N Mental Status: 1 - Regular (Normal Baseline) Sepsis Risk:Possible Sepsis Risk Have you (or family members/close friends) recently traveled outside the [facility]? N If Yes, where/when: Have you had exposure to infectious disease within the past month? TB? Other? Specify: Comment The patient complains of a 2 day history of pain across her mid and lower abdomen and in her "rib", pointing to her LEFT costal margin. She is had nausea and vomiting. She has a history of Crohn's disease, although says not on current treatment for that. She has had multiple abdominal surgeries including bowel resection. She says that she was living in [facility] until today, just moved back with her daughter today, does not have a physician here. She had moved to [facility] about a year ago. ALLERGIES Coded Allergies: naratriptan (SEVERE CHEST PAIN/TIGHTNESS (ALMOST HAD A HEART ATTACK) 08/09/15) Home Medications Active Scripts Azithromycin (Zithromycin (Z-BRIANNA) 250MG Tab) 250 MG PO DAILY #6 TAB Prov: 12/07/16 Reported Medications DICYCLOMINE HCL (Bentyl) 10 MG PO TID METHOCARBAMOL (Methocarbamol) 500 MG PO QID Topiramate (Topiramate 25MG Tablet) 25 MG PO QHS CITALOPRAM HYDROBROMIDE (Citalopram HBr) 40 MG PO DAILY Ferrous Sulfate (Ferrous Sulfate 325MG) 325 MG PO DAILY FLUTICASONE PROPIONATE (Fluticasone 50MCG Nasal [place]) 1 SPRAY NA BID Omeprazole (Omeprazole 40MG) 20 MG PO DAILY ALBUTEROL-IPRATROPIUM (Iprat-Albut 0.5-3(2.5) MG/3 Ml) 3 ML IH QID ALBUTEROL (Ventolin Hfa) 2 PUFF IH Q6H6 (Renusch MD, Jey) Source patient, RN notes reviewed, family, old records Exam Limitations no limitations Cardiac Chest Pain Chest pain indicative of cardiac No Timing/Duration this evening Severity moderate (Michael Escudero MD) History Medical History General CAD? No Angina: No SD: No Hypertension? No Hyperlipidemia? No CHF? No DVT? No PE? No COPD? Yes Asthma? No Anemia? No GERD? Yes Gastric ulcers? No GI Bleed? No Hernia? No Thyroid Problems? No Hypothyroidism? No CVA? No Seizures? No Diabetes? No Insulin Dependent: No Insulin Pump: No Home FSBS? No Renal Insuffiency? No End Stage Renal Disease? No UTI? No Stones? No BPH? No GB Disease: No Nephritic Syndrome? No Asplenia? No Hepatitis? No Sickle Cell Disease? No Arthritis? Yes Migraines? Yes Cataracts? No Glaucoma? No MRSA? No HIV? No TB? No Anxiety? Yes Depression? Yes Cancer? No More? Yes Additional hx: SCOLIOSIS, DDD Immunization Hx DT/Tetanus > 10 Years Ago Flu [id number] Flu Season Pneumonia 02/23/14 Surgical Hx Previous Surgery?Y X2 HYSTERECTOMY COLON RESECTION SMALL BOWEL RESECTION HERNIA REPAIRS EPIGASTRIC HERNIA REPAIR X 2. 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 Skin denies rash (Michael Escudero MD) Physical Exam Vital Signs Vital Signs Date Time Temp Pulse Resp B/P Pulse O2 O2 Flow FiO2 Ox Delivery Rate 12/21 1958 98.7 83 20 119/47 99 12/21 1846 98.9 91 20 151/110 97 12/21 1758 98.8 113 18 128/95 99 General Appearance no apparent distress, cachetic Eye Exam - bilateral eye normal exam, bilateral eye PERRL, bilateral eye EOMI Ear, Nose, Throat hearing grossly normal, edentulous Neck normal inspection, non-tender, supple, full range of motion Respiratory Status Yes: trachea midline, chest symmetrical, non tender chest. No: respiratory distress. Lung Sounds bilateral: normal breath sounds, lungs clear. Cardiovascular normal exam, regular rate/rhythm, no peripheral edema, no gallop, no JVD, no murmur, no rub, normal peripheral pulses Peripheral Pulses Pulses normal Yes Gastrointestinal normal bowel sounds, soft, no organomegaly, multiple surgical scars, generalized tenderness., abdomen very soft Back normal inspection, no CVA tenderness, no vertebral tenderness Extremities non-tender, normal range of motion, normal inspection Neurologic alert, normal exam, oriented x 3 Mental status normal mood/affect Skin intact, normal color, warm/dry (Glenny MAYORGA, Jey) - WBC >12,000 or <4,000 or 10% bands? 2 or more SIRS Criteria Met? B/P:119/47 MAP:123 Creatinine >2.0? UA output<0.5ml/kg/hr for 2 hrs? Platelet count >100,000? Lactate >2.0mmol/1? INR >1.2 or PTT > than 60 sec? Evidence of Organ Dysfunction? Provider documented clinical suspician of infection? N Sepsis Criteria Count: 2 Sepsis Risk: Possible Sepsis Risk Strength 4 Upper Ext (L), 4 Upper Ext (R), 4 Lower Ext (L), 4 Lower Ext (R) (Kena MAYORGA,Michael Saavedra) Medical Decision Making LABS/Meds/Orders Pt receiving controlled substance in ED? No Fitz was queried for this patient? Yes Comment [id number] 6 rxs. last rx 10 vicodin on 10/12/16. Results/Orders Laboratory Tests 12/21/16 1910: Sodium 136, Potassium 3.6, Chloride 102, Carbon Dioxide 28, BUN 22 H, Creatinine 0.7, Estimated Creat Clear 71, Estimated GFR (MDRD) 91, Glucose 92, Calcium 9.7, Total Bilirubin 0.4, AST 12 L, ALT 32, Alkaline Phosphatase 99, Total Protein 7.6, Albumin 4.4, Globulin 3.2, Albumin/Globulin Ratio 1.4, Amylase 72, Lipase 185, WBC 10.1, RBC 4.21, Hgb 13.3, Hct 42.2, MCV 100.2 H, RDW 12.3, Plt Count 272, MPV 7.7, Gran % 74.6, Gran # 7.5, Lymphocytes % 19.3, Monocytes % 4.9, Eosinophils % 0.8, Basophils % 0.5, Lymphocytes # 1.9, Monocytes # 0.5, Eosinophils # 0.1, Basophils # 0.1, PUBS MCHC 31.6 L, MCH 31.6 H Current Medication Orders Sig/Nina Start time Last Medication Dose Route Stop Time Status Admin Sodium Chloride 10 ML PRN PRN 12/21 1914 AC IV 12/22 1912 Orders Procedure Date/time Status DIET-NOTHING BY MOUTH 12/[address] ABD & PELVIS W/O CONTRAST 12/[address] ABD/PELVIS REQ 12/21 1912 Complete IV SALINE LOCK 12/21 1912 Active URINALYSIS/COMPLETE 12/21 1912 Active LIPASE 12/21 1912 Complete CBC WITH AUTO DIFF 12/21 1912 Complete CHEM 12 PROFILE 12/21 1912 Complete AMYLASE 12/21 1912 Complete Progress - 8:15 PM: At shift change, I have discussed the patient with Dr. Escudero, who will assume care of the patient at this time. I have discussed all clinical information including history, physical and diagnostic study results. Preliminary diagnoses based on information available at this point have been recorded by me. Controlled substance administration and critical care statement are also preliminary, as of the time of handoff. (Jey Murrieta MD) LABS/Meds/Orders Pt receiving controlled substance in ED? No XRAY/CT/US XRAY/CT/US CT abdomen, pelvis CT interpretation by discussed w/radiologist Time results known: 2108 CT Results abnormal (see report) (Michael Escudero MD) Departure Departure Clinical Impression Primary Impression: Abdominal pain Qualifiers: Abdominal location: generalized Qualified Code: R10.84 - Generalized abdominal pain Condition STABLE Referrals DONTRELL LORENZANA (Family) ED Critical Care Critical Care No (eJy Murrieta MD) Departure Disposition DC Home or Self Care(routine) Patient Instructions DI for Abdominal Pain-Adult Additional Instructions see pcp for follow up Discharge Counseling Counseled pt/family regarding diagnosis, medications/RX (Michael Escudero MD) at 2020 at 1344
[2016-12-21 21:39] VITALS: BP 98/53
--- NOTE | 2016-12-22 08:17 | RADIOLOGY REPORT PS360 ---
CT ABD PELVIS W/O CONTRAST CLINICAL INDICATION: Generalized abdominal pain with nausea and history of Crohn's disease ABD PAIN ORDERING PHYSICIAN: Michael Escudero MD PATIENT AGE: 46 years COMPARISON: 09/15/2015 TECHNIQUE: Axial images obtained with sagittal and coronal reformats. PROCEDURE: Oral Contrast: None IV Contrast: None . FINDINGS: Lower thorax: No acute finding ABDOMEN: Liver: Mild prominence of the right hepatic lobe. No focal liver lesion. Gallbladder: Nondistended. No radio opaque stones. Pancreas: No masses or peripancreatic fluid collections. Spleen: Unremarkable. Adrenals: Unremarkable Kidneys/ureters: No masses. No renal calculi. No hydronephrosis. No perinephric fluid collections. No ureteral dilatation or obvious ureteral calculi. Stomach bowel: Surgical clips in a patulous loop of bowel in the right lower quadrant which may be due to prior bowel resection with dysmotility at this area. There are multiple unopacified bowel loops present within the abdomen/pelvis which could obscure or mimic pathology. If symptoms persists, consider repeating exam with IV and oral contrast administration. Prominent amount stool and gas in the rectum Appendix: Prior appendectomy PELVIS: Reproductive: Hysterectomy Bladder: Nondistended. No obvious stones or masses. ABDOMEN & PELVIS: Peritoneum: No abnormal fluid collections. No obvious inflammatory changes. No free air. Lymph nodes: No enlarged lymph nodes apparent. Vasculature: No evidence of abdominal aortic aneurysm. No retroperitoneal hemorrhage evident. Bones: No acute fracture IMPRESSION: 1. Surgical clips in right lower quadrant with a prominent bowel loop which may reflect postsurgical changes in the small bowel. Ileus is also a consideration. 2. Otherwise no acute finding
== END 2016-12-21 21:40 | disposition home or self-care (01) ==
LOC: UTC 17:52 → ER 17:55 → UTC 17:55 → ER 17:55
PROVIDERS: Emergency Medicine
DX: R10.84 Generalized abdominal pain (principal); Z72.0 Tobacco use; F41.8 Other specified anxiety disorders; K21.9 Gastro-esophageal reflux disease without esophagitis; J44.9 Chronic obstructive pulmonary disease, unspecified; Z88.8 Allergy status to other drugs, medicaments and biological substances

== ENCOUNTER 2016-12-30 16:38 | Emergency (ER) | payer MEDICAID ==
[~2016-12-30] VITALS: Ht 172.7 cm; Wt 47.6 kg
[2016-12-30] MEDS ORDERED: NAPROSYN500 M1 PO (17:13)
[2016-12-30] MEDS ORDERED: ROBAXIN 500 MG500 MG PO (17:13)
--- NOTE | 2016-12-30 17:14 | Emergency Room Report ---
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 N Clinical Suspician of Infection? N Mental Status: 1 - Regular (Normal Baseline) Sepsis Risk:Low Sepsis Risk Have you (or family members/close friends) recently traveled outside the [place]? N If Yes, where/when: Have you had exposure to infectious disease within the past month? TB? Other? Specify: This is 46 years old white female with small muscle mass, she was helping a friend unload furniture and now her back hurts. She refused to be seen in urgent care because she was moved from the urgent care to the ED in the past. She denies having any trauma,, falls or assults, she denies weakness or numbness of the upper or lower extremity is no loss of urine or bowel control. She has no difficulty breathing no nausea no vomiting. He has no dysuria or hematuria. Source patient, RN notes reviewed, family Exam Limitations no limitations ALLERGIES Coded Allergies: naratriptan (SEVERE CHEST PAIN/TIGHTNESS (ALMOST HAD A HEART ATTACK) 12/30/16) Home Medications Active Scripts Azithromycin (Zithromycin (Z-BRIANNA) 250MG Tab) 250 MG PO DAILY #6 TAB Prov: 12/07/16 Reported Medications DICYCLOMINE HCL (Bentyl) 10 MG PO TID METHOCARBAMOL (Methocarbamol) 500 MG PO QID Topiramate (Topiramate 25MG Tablet) 25 MG PO QHS CITALOPRAM HYDROBROMIDE (Citalopram HBr) 40 MG PO DAILY Ferrous Sulfate (Ferrous Sulfate 325MG) 325 MG PO DAILY FLUTICASONE PROPIONATE (Fluticasone 50MCG Nasal [place]) 1 SPRAY NA BID Omeprazole (Omeprazole 40MG) 20 MG PO DAILY ALBUTEROL-IPRATROPIUM (Iprat-Albut 0.5-3(2.5) MG/3 Ml) 3 ML IH QID ALBUTEROL (Ventolin Hfa) 2 PUFF IH Q6H6 History Medical History General CAD? No Angina: No NH: No Hypertension? No Hyperlipidemia? No CHF? No DVT? No PE? No COPD? Yes Asthma? No Anemia? No GERD? Yes Gastric ulcers? No GI Bleed? No Hernia? No Thyroid Problems? No Hypothyroidism? No CVA? No Seizures? No Diabetes? No Insulin Dependent: No Insulin Pump: No Home FSBS? No Renal Insuffiency? No End Stage Renal Disease? No UTI? No Stones? No BPH? No GB Disease: No Nephritic Syndrome? No Asplenia? No Hepatitis? No Sickle Cell Disease? No Arthritis? Yes Migraines? Yes Cataracts? No Glaucoma? No MRSA? No HIV? No TB? No Anxiety? Yes Depression? Yes Cancer? No More? Yes Additional hx: SCOLIOSIS, DDD Immunization Hx Ped.Immunizations UTD Yes DT/Tetanus > 10 Years Ago Flu [id number] Flu Season Pneumonia 02/23/14 Surgical Hx Previous Surgery?Y X2 HYSTERECTOMY COLON RESECTION SMALL BOWEL RESECTION HERNIA REPAIRS EPIGASTRIC HERNIA REPAIR X 2. 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 Respiratory no symptoms reported Cardiovascular no symptoms reported Gastrointestinal no symptoms reported Genitourinary no symptoms reported. Musculoskeletal see HPI, back pain, neck pain Skin no symptoms reported Psychiatric/Neurological no symptoms reported Physical Exam Vital Signs Vital Signs Date Time Temp Pulse Resp B/P Pulse O2 O2 Flow FiO2 Ox Delivery Rate 12/30 1649 98.3 96 18 116/76 99 - WBC >12,000 or <4,000 or 10% bands? 2 or more SIRS Criteria Met? B/P:116/76 MAP:89 Creatinine >2.0? UA output<0.5ml/kg/hr for 2 hrs? Platelet count >100,000? Lactate >2.0mmol/1? INR >1.2 or PTT > than 60 sec? Evidence of Organ Dysfunction? Provider documented clinical suspician of infection? N Sepsis Criteria Count: 1 Sepsis Risk: Low Sepsis Risk General Appearance normal appearance, WD/WN Eye Exam - bilateral eye normal exam, bilateral eye PERRL, bilateral eye EOMI Ear, Nose, Throat hearing grossly normal, normal ENT inspection Neck normal inspection, non-tender, supple, full range of motion Respiratory Status Yes: trachea midline, chest symmetrical, non tender chest. No: respiratory distress. Lung Sounds bilateral: normal breath sounds, lungs clear. Cardiovascular normal exam, regular rate/rhythm, no peripheral edema, no gallop, no JVD, no murmur, no rub, normal peripheral pulses Peripheral Pulses Pulses normal Yes Gastrointestinal normal bowel sounds, normal exam, non tender, soft, no organomegaly Back normal inspection, no CVA tenderness, no vertebral tenderness, and female patient with no diffuse upper and lower back tenderness no focal tenderness, no spinous process tenderness Extremities non-tender, normal range of motion, normal inspection Neurologic alert, roll tester II-XII nml as tested, normal exam, no motor/sensory deficits, oriented x 3 Medical Decision Making LABS/Meds/Orders Pt receiving controlled substance in ED? No Departure Departure Time of Disposition 171 Disposition DC Home or Self Care(routine) Clinical Impression Primary Impression: Muscle strain Condition STABLE Referrals ARINA DOS SANTOS (Family) Additional Instructions rest wartm compsresses robaxin and naprosyn stop smoking see pcp in am for a recheck Discharge Counseling Counseled pt/family regarding diagnosis, test results, medications/RX, home care, follow up needs Prescriptions Current Visit Scripts Methocarbamol (Robaxin 500MG) 500 MG PO Q12HP #14 TAB Naproxen (Naprosyn 500MG Tab) 500 MG PO Q12HP #10 TAB ED Critical Care Critical Care No If Critical Care minutes are documented, the time involved in the performance of seperately reportable procedures was not counted toward critical care time documented. I directly delivered medical care to this critically ill and/or injured patient. Timely evaluation and treatment was necessary to address the significant organ system(s) dysfunction present in this patient. at 1714
[2016-12-30 17:17] VITALS: BP 116/76
--- OUTSIDE RECORDS SUMMARY | 2016-12-30 18:14 | External Medical Summary Rpt | CCD ---
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 ET ME 65 05 06 20 7 00 DE Ac OM 16 -3 -2 .0 00 AN ti ET 20 0- 3- 00 06 S ve MAIN 52 20 20 51 PH ZI 11 17 17 54 AR NE 1 54 MA CY 25 MG TA BL ET CI 00 05 06 30 30 00 DE Ac TA 37 -3 -2 .0 00 AN ti LO 86 0- 3- 00 06 S ve ME 23 20 20 51 PH AM 30 17 17 54 AR 5 57 MA HB CY R 40 MG TA BL ET TO 68 05 30 30 00 DE Ac PI 38 [...] 70 3- 6- 00 06 ER ve ME 82 20 20 32 AM 41 17 17 50 PH 2 70 AR HB MA R CY 40 #1 MG 44 10 TA BL ET OX 53 04 05 20 3 00 KR Ac YC 74 -2 -1 .0 00 OG ti OD 60 4- 9- 00 02 ER ve ON 20 20 20 26 E- 30 17 17 [...] TA 44 BL 10 ET CI 69 03 04 30 30 00 KR Ac TA 09 -2 -2 .0 00 OG ti LO 70 7- 1- 00 06 ER ve ME 82 20 20 14 AM 31 17 [...] LL MG C /3 ML SO LN OX 10 03 04 18 3 00 KR Ac YC 70 -2 -2 .0 00 OG ti OD 20 4- 1- 00 02 ER ve ON 03 30 20 26 E 80 17 17 60 [...] 10 44 0 10 MG TA B ME 00 03 04 18 9 00 KR [...] 70 3- 7- 00 06 ER ve ME 82 20 20 29 AM 31 17 17 33 PH 2 96 AR HB MA R CY 20 #1 MG 44 10 TA BL ET ME 65 12 01 20 7 00 DE [...] 80 8- 9- 00 06 ER ve ME 00 20 20 57 AM 90 16 [...] N ZA 93 14 14 D II ME 2 PH I IN AR WI E [...] 41 20 ng RA 40 14 er KS 1 DE Ac ti 10 ve MG [...] ve DE IN E #3 TA K ME 51 04 0 No OM 07 -2 [...] 11 D RI TA 1 PH CH KS AR AR N- MA D CA CY W FF 03 50 93 -3 8 25 # -4 03 0 93 ME 00 10 10 5 15 3 RI [...] 11 D RI TA 1 PH CH KS AR AR N- MA D CA CY W FF 03 50 93 -3 8 25 # -4 03 0 93 ME 00 10 10 5 15 3 RI [...] 11 D RI E 9 PH CH ME AR AR OP MA D CY W [...] 34 5- 6- 00 20 N ve ME 59 20 20 AI BA ED 31 [...] 11 D RI TA 1 PH CH KS AR AR N- MA D CA CY W FF 03 50 93 -3 8 25 # -4 03 0 93 CI 65 08 08 20 10 RI 89 WE Ac ME 86 -0 -0 .0 TE 38 HR [...] # 03 93 ME 00 08 08 13 11 RI 89 WE Ac ED 59 -0 -0 .0 TE 38 HR ti NI 15 4- 5- 00 30 MA ve SO 44 20 20 AI N NE 30 11 11 D II 1 PH I 20 AR WI MA LL MG CY IA M TA 03 E BL 93 ET 8 # 03 93 ME 00 08 08 15 3 RI 89 [...] 11 D RI TA 1 PH CH KS AR AR N- MA D CA CY [...] 11 D RI TA 1 PH CH KS AR AR N- MA D CA CY [...] 8 ET # 03 93 ME 00 03 03 2 40 6 RI [...] 8 ET # 03 93 ME 00 11 01 2 40 6 RI [...] 93 UL 8 E # 03 93 ME 00 11 01 2 40 6 RI [...] 10 D RI TA 1 PH CH KS AR AR N- MA D CA CY W FF 03 50 93 -3 8 25 # -4 03 0 93 BU 00 09 11 5 60 15 RI 85 AR Ac TA 14 -2 -2 .0 TE 19 NO ti LB 31 8- 9- 00 04 LD ve -A 78 20 20 AI CE 70 10 10 D RI TA 1 PH CH KS AR AR N- MA D CA CY [...] 10 8 -3 # 25 03 93 ME 00 11 11 2 40 6 RI [...] 10 D RI TA 1 PH CH KS AR AR N- MA D CA CY [...] 10 D RI TA 1 PH CH KS AR AR N- MA D CA CY [...] ET # 03 93 ME 00 05 08 5 12 [...] 03 93 ME 00 08 08 1 18 6 RI [...] 34 1- 1- 00 00 LD ve ME 59 20 20 AI ED 31 10 10 D RI NI 5 PH CH SO AR AR LO MA D NE CY W 4 03 MG 93 8 DO # SE 03 PK 93 TR 00 08 08 60 15 [...] 8 ET # 03 93 ME 00 06 07 1 40 6 RI [...] 30 7- 7- 00 34 LD ve KS 31 20 20 AI DE 10 10 [...] 03 ET 93 8 # 03 93 ME 00 06 06 1 40 6 RI [...] 10 D RI TA 1 PH CH KS AR AR N- MA D CA CY [...] # 03 93 ME 00 04 04 30 7 RI 83 [...] 34 3- 3- 00 71 LD ve ME 59 20 20 AI ED 31 10 [...] 93 8 # 03 93 ME 00 04 04 10 2 RI 83 WE Ac OM 78 -1 -1 .0 TE 03 HR ti ET 11 7- 9- 00 82 MA ve MAIN 83 20 20 AI N ZI 00 10 10 D II NE 1 PH I AR WI 25 MA LL CY IA MG M 03 E TA 93 BL 8 ET # 03 93 00 04 04 10 2 RI 83 WE Ac 40 -1 -1 .0 TE 03 HR ti 60 7- 9- 00 81 MA ve 35 20 20 AI N 70 10 10 D II 5 PH I AR WI MA LL CY IA M 03 E 93 8 # 03 93 BU 00 04 04 1 60 10 RI 83 AR Ac TA 60 -1 -1 .0 TE 00 NO ti LB 32 5- 5- 00 05 LD ve -A 54 20 20 AI CE 42 10 10 D RI TA 1 PH CH KS AR AR N- MA D CA CY [...] W 03 93 8 # 03 93 TI 00 11 03 2 90 30 CL 20 KS Ac ZA 37 -0 -0 .0 IN 43 CK ti NI 80 9- 1- 00 IC 90 ve DI 72 20 20 GR NE 41 09 10 PH EG 9 AR OR HC MA Y L CY E 4 MG LL C TA BL ET BU 00 12 03 3 60 30 CL 20 AR Ac ME 18 -0 -0 .0 IN 58 NO [...] CY MG LL TA C BL ET 65 01 02 00 90 30 CL 20 CLAUDIA Ac 48 -0 -2 .0 IN 83 SC ti 30 7- 6- 00 IC 10 H ve 70 20 20 AN 21 10 10 PH TO 0 AR NI MA O CY TR 00 11 02 02 90 30 CL 20 KS Ac AM 37 -0 -2 .0 IN 45 CK ti AD 84 9- 6- 00 IC 80 ve OL 15 20 20 GR 10 09 10 PH EG HC 5 AR OR L MA Y 50 CY E MG TA BL ET 00 02 02 00 [...] W OF CY NT HI AN A 65 01 01 00 15 5 WA 28 WE Ac 48 -0 -1 .0 LG 25 BB ti 30 4- 4- 00 RE 92 ve 70 20 20 EN 1 JI 21 10 10 S LL 0 (4 E 89 2 BU 00 12 01 01 60 30 CL 20 AR Ac ME 18 -0 -1 .0 IN 58 NO [...] 10 PH RI TA 8 AR CH KS MA AR N- CY D CA W FF 50 -3 25 -4 0 TR 00 11 12 01 90 30 CL 20 KS Ac AM 37 -0 -3 .0 IN 45 CK ti AD 84 9- 1- 00 IC 80 ve OL 15 20 20 GR 10 09 09 PH EG HC 5 AR OR L MA Y 50 CY E MG TA BL ET BU 00 11 12 00 60 10 CL 20 AR Ac TA 60 -3 -1 .0 IN 57 NO ti LB 32 0- 7- 00 IC 18 LD ve -A 54 20 20 CE 42 09 09 PH RI TA 8 AR CH KS MA AR N- CY D CA W FF 50 -3 25 -4 0 65 10 12 02 90 30 CL 20 CLUADIA Ac 48 -0 -1 .0 IN 22 SC ti 30 7- 7- 00 IC 05 H ve 70 20 20 AN 21 09 09 PH TO 0 AR NI MA O CY TO 68 06 12 04 60 30 CL 19 OC Ac PI 38 -1 -1 .0 IN 60 ON ti RA 20 9- 7- 00 IC 43 NE ve MA 13 20 20 LL TE 81 09 09 PH 4 AR HARSHIL 25 MA HN CY MG TA BL ET BU 00 12 12 00 60 30 CL 20 AR Ac ME 18 -0 -1 .0 IN 58 NO ti OP 50 2- 7- 00 IC 96 LD ve IO 41 20 20 N 56 09 09 PH RI HC 0 AR CH L MA AR SR CY D W 15 0 MG TA BL ET TI 00 11 12 01 90 30 CL 20 KS Ac ZA 18 -0 -1 .0 IN 43 CK ti NI 54 9- 7- 00 IC 90 ve DI 40 20 20 GR NE 05 09 09 PH EG 1 AR OR HC MA Y L CY E 4 MG TA BL ET LI 63 11 12 01 90 30 CL 20 KS Ac DO 48 -0 -1 .0 IN 43 CK ti DE 10 9- 7- 00 IC 91 ve RM 68 20 20 GR 70 09 09 PH EG 5% 6 AR OR MA Y PA CY E TC H 00 06 12 03 60 30 CL 19 OC Ac 83 -1 -1 .0 IN 60 ON ti 21 9- 7- 00 IC 44 NE ve 01 20 20 LL 50 09 09 PH 0 AR HARSHIL MA HN CY LI 63 11 11 00 90 30 CL 20 KS Ac DO 48 -0 -1 .0 IN 43 CK ti DE 10 9- 9- 00 IC 91 ve RM 68 20 20 GR 70 09 09 PH EG 5% 6 AR OR MA Y PA CY E TC H TR 00 11 11 00 90 30 CL 20 KS Ac AM 37 -0 -1 .0 IN 45 CK ti AD 84 9- 9- 00 IC 80 ve OL 15 20 20 GR 10 09 09 PH EG HC 5 AR OR L MA Y 50 CY E MG TA BL ET 65 10 11 01 90 30 CL 20 CLAUDIA Ac 48 -0 -1 .0 IN 22 SC ti 30 7- 9- 00 IC 05 H ve 70 20 20 AN 21 09 09 PH TO 0 AR NI MA O CY TI 55 11 11 00 90 30 CL 20 KS Ac ZA 11 -0 -1 .0 IN 43 CK ti NI 10 9- 9- 00 IC 90 ve DI 18 20 20 GR NE 01 09 09 PH EG 5 AR OR HC MA Y L CY E 4 MG TA BL ET 00 06 11 02 60 30 CL 19 OC Ac 83 -1 -0 .0 IN 60 ON ti 21 9- 5- 00 IC 44 NE ve 01 20 20 LL 50 09 09 PH 0 AR HARSHIL MA HN CY TO 68 06 11 03 60 30 CL 19 OC Ac PI 38 -1 -0 .0 IN 60 ON ti RA 20 9- 5- 00 IC 43 NE ve MA 13 20 20 LL TE 81 09 09 PH 4 AR HARSHIL 25 MA HN CY MG TA BL ET TA 00 10 11 00 10 5 CL 20 AR Ac KS 00 -2 -0 .0 IN 32 NO ti FL 40 2- 5- 00 IC 69 LD ve U 80 20 20 75 08 09 09 PH RI 5 AR CH MG MA AR CY D CA W PS UL E BU 00 05 11 02 60 30 CL 19 AR Ac ME 18 -0 -0 .0 IN 76 NO ti OP 50 5- 5- 00 IC 52 LD ve IO 41 20 20 N 56 09 09 PH RI HC 0 AR CH L MA AR SR CY D W 15 0 MG TA BL ET BU 00 09 11 01 10 25 CL 20 AR Ac TA 60 -2 -0 0. IN 13 NO ti LB 32 4- 5- 00 IC 08 LD ve -A 54 20 20 0 CE 42 09 09 PH RI TA 1 AR CH KS MA AR N- CY D CA W FF 50 -3 25 -4 0 00 10 11 00 6. 1 RI 80 GA Ac 60 -1 -0 00 TE 46 IN ti 35 7- 5- 0 07 EY ve 46 20 20 AI 82 09 09 D KS 8 PH CH AR AE M L [...] D 0 W MG TA BL ET ME 68 09 10 01 40 10 CL [...] 0 AR NI MA O CY TR 65 10 10 05 18 23 [...] AN A BU 00 09 10 00 10 25 CL 20 AR Ac TA 60 -2 -0 0. IN 13 NO ti LB 32 4- 8- 00 IC 08 LD ve -A 54 20 20 0 CE 42 09 09 PH RI TA 1 AR CH KS MA AR N- CY D CA W FF 50 -3 25 -4 0 00 06 10 03 12 30 CL 19 AR Ac 59 -2 -0 0. IN 60 NO ti 15 3- 8- 00 IC 39 LD ve 38 20 20 0 20 09 09 PH RI 1 AR CH MA AR CY D W TO 68 06 10 02 60 30 CL 19 OC Ac PI 38 -1 -0 .0 IN 60 ON ti RA 20 9- 8- 00 IC 43 NE ve MA 13 20 20 LL TE 81 09 09 PH 4 AR HARSHIL 25 MA HN CY MG TA BL ET 00 09 10 00 60 15 EA 14 AR Ac 40 -2 -[address] 48 NO ti 62 9- 8- 00 SI 35 LD ve 04 20 20 DE 11 09 09 RI 0 PH CH AR AR MA D CY W OF CY NT HI AN A 00 06 10 01 60 30 CL 19 OC Ac 83 -1 -0 .0 IN 60 ON ti 21 9- 8- 00 IC 44 NE ve 01 20 20 LL 50 09 09 PH 0 AR HARSHIL MA HN CY BU 00 05 10 01 60 30 CL 19 AR Ac ME 18 -0 -0 .0 IN 76 NO ti OP 50 5- 8- 00 IC 52 LD ve IO 41 20 20 N 56 09 09 PH RI HC 0 AR CH L MA AR SR CY D W 15 0 MG TA BL ET TR 65 10 09 04 18 23 [...] ET HI AN A BU 00 05 09 00 60 30 CL 19 AR Ac ME 18 -0 -1 .0 IN 76 NO [...] MA AR CY D W 00 06 09 02 12 30 CL [...] MA HN CY MG TA BL ET ME 68 09 09 00 40 10 CL 20 AR Ac OM 38 -0 -1 .0 IN 00 NO ti ET 20 3- 0- 00 IC 85 LD ve MAIN 04 20 20 ZI 10 09 09 PH RI NE 1 AR CH MA AR 25 CY D W MG TA BL ET 66 09 09 00 50 10 CL 19 AR Ac 99 -0 -1 .0 IN 99 NO ti 20 1- 0- 00 IC 01 LD ve 16 20 20 55 09 09 PH RI 0 AR CH MA AR CY D W 00 06 08 00 60 30 CL [...] CY D MG W TA BL ET TO 68 06 08 00 60 30 [...] AR NI MA O CY 00 06 08 01 12 30 CL 19 AR Ac 59 -2 -1 0. IN 60 NO ti 15 3- 3- 00 IC 39 LD ve 38 20 20 0 20 09 09 PH RI 1 AR CH MA AR CY D W 00 08 08 00 12 3 CL 19 GA Ac 40 -0 -1 .0 IN 84 IN ti 60 7- 3- 00 IC 49 EY ve 35 20 20 70 09 09 PH KS 5 AR CH MA AE CY L S BU 00 05 07 01 60 30 EA 12 AR Ac ME 18 -0 -[address] 62 NO ti OP 50 5- 0- 00 SI 43 LD ve IO 41 20 20 DE N 56 09 09 RI HC 0 PH CH L AR AR SR MA D CY W 15 0 OF MG CY NT TA HI BL AN ET A AM 00 07 07 00 30 10 CL 19 AR Ac OX 78 -1 -3 .0 IN 74 NO ti IC 12 8- 0- 00 IC 00 LD ve IL 61 20 20 LI 30 09 09 PH RI N 1 AR CH 50 MA AR 0 CY D MG W CA PS UL E LO 37 07 07 00 30 30 CL 19 AR Ac RA 20 -1 -3 .0 IN 74 NO ti TA 50 8- 0- 00 IC 03 LD ve DI 34 20 20 NE 67 09 09 PH RI 2 AR CH 10 MA AR CY D MG W TA BL ET ME 59 07 07 00 21 6 CL 19 AR Ac TH 74 -1 -3 .0 IN 74 NO ti YL 60 8- 0- 00 IC 01 LD ve ME 00 20 20 ED 10 09 09 PH RI NI 3 AR CH SO MA AR LO CY D NE W 4 MG DO SE PK ME 68 07 07 00 40 10 CL 19 AR Ac OM 38 -1 -3 .0 IN 74 NO ti ET 20 8- 0- 00 IC 02 LD ve MAIN 04 20 20 ZI 10 09 09 PH RI NE 1 AR CH MA AR 25 CY D W MG TA BL ET TR 65 10 07 [...] BL CY ET NT HI AN A 65 04 07 00 [...] CH MA AR CY D W CY 00 06 07 00 12 84 CL 19 OC Ac AN 51 -2 -0 .0 IN 62 ON ti OC 70 6- 2- 00 IC 52 NE ve OB 03 20 20 LL AL 12 09 09 PH AM 5 AR HARSHIL IN MA HN CY 1, 00 0 MC G/ ML 00 06 07 00 60 30 EA 13 OC Ac 52 -1 -[address] 20 ON ti 71 9- 2- 00 SI 74 NE ve 70 20 20 DE LL 40 09 09 1 PH HARSHIL AR HN MA CY OF CY NT HI AN A CY 59 06 06 00 90 30 CL 19 AR Ac CL 74 -0 -1 .0 IN 47 NO ti OB 60 1- 8- 00 IC 30 LD ve EN 17 20 20 ZA 70 09 09 PH RI ME 6 AR CH IN MA AR E CY D 10 W MG TA BL ET 60 10 06 02 18 23 EA 99 AR Ac 50 -2 -[address] 93 NO ti 50 0- 8- 00 SI 35 LD ve 17 20 20 0 DE 10 08 09 RI 8 PH CH AR AR MA D CY W OF CY NT HI AN A 00 04 06 01 [...] 8- 4- 00 SI 58 EY ve ME 02 20 20 DE ED 20 09 09 KS NI 7 PH CH SO AR AE LO MA L NE CY S 4 OF MG CY NT DO HI SE AN PK A BU 00 05 05 00 60 30 EA 12 AR Ac ME 18 -0 -[address] 62 NO ti OP 50 5- 1- 00 SI 43 LD ve IO 41 20 20 DE N 56 09 09 RI HC 0 PH CH L AR AR SR MA D CY W 15 0 OF MG CY NT TA HI BL AN ET A 00 05 05 00 16 4 EA 12 CH Ac 59 -1 -[address] 74 ES ti 10 4- 1- 00 SI 37 TN ve 38 20 20 DE UT 50 09 09 1 PH KS AR CH MA AE CY L OF CY NT HI AN A CE 00 05 05 [...] CY UL NT E HI AN A HY 00 05 05 00 16 2 EA [address] 55 -1 -[address] 74 ES ti OX 50 4- 1- 00 SI 36 TN ve YZ 32 20 20 DE UT IN 30 09 09 E 4 PH KS PA AR CH M MA AE 25 CY L MG OF CY CA NT P HI AN A 65 04 05 00 90 30 EA 12 CLAUDIA Ac 48 -3 -[address] 55 SC ti 30 0- 7- 00 SI 99 H ve 70 20 20 DE AN 21 09 09 TO 0 PH NI AR O MA CY OF CY NT HI AN A ME 00 04 05 00 60 15 EA [...] OF E CY NT HI AN A TR 00 02 04 02 10 25 RI 77 AR Ac AM 09 -0 -2 0. TE 00 NO ti AD 30 9 3- 00 69 LD ve OL 05 [...] #3 W 93 TA 8 BL ET ME 00 03 04 01 40 10 RI 77 AR Ac OM 78 -2 -0 .0 TE 65 NO ti ET 11 3- 9- 00 63 LD ve MAIN 83 20 20 AI ZI 00 09 09 D RI NE 1 PH CH AR AR 25 M D #3 W MG 93 8 TA BL ET 00 04 04 00 60 30 RI 77 AR Ac 09 -0 -0 .0 TE 83 NO ti 35 3- 9- 00 94 LD ve 50 20 20 AI 20 09 09 D RI 1 PH CH AR AR M D #3 W 93 8 NY 51 03 03 00 24 6 RI [address] 67 -1 -2 0. TE 58 NO ti AT 24 8- 6- 00 95 LD ve IN 11 20 20 0 AI 70 09 09 D RI 10 4 PH CH 0, AR AR 00 M D 0 #3 W UN 93 IT 8 /M L SUGGS SP ME 00 03 03 00 40 10 RI 77 AR Ac OM 78 -0 -1 .0 TE 39 NO ti ET 11 6- 2- 00 95 LD ve MAIN 83 20 20 AI ZI 00 09 09 D RI NE 1 PH CH AR AR 25 M D #3 W MG 93 8 TA BL ET ME 49 03 03 00 60 20 [...] 09 PH RI TA 1 AR CH KS MA AR N- CY D CA W [...] W MG 93 8 TA BL ET PE 54 01 12 00 48 30 [...] 0 AR NI MA O CY 00 12 12 00 60 15 CL 18 AR Ac 60 -0 -1 .0 IN 33 NO ti 35 5- 8- 00 IC 21 LD ve 46 20 20 62 08 08 PH RI 1 AR CH MA AR CY D W BU 00 11 12 00 60 15 EA 10 AR Ac TA 59 -1 -[address] 31 NO ti LB 13 7- 4- 00 SI 63 LD ve -A 36 20 20 DE CE 90 08 08 RI TA 5 PH CH KS AR AR N- MA D CA CY W FF OF 50 CY -3 NT 25 HI -4 AN 0 A 00 11 12 00 15 30 CL [...] W OF CY NT HI AN A 60 10 11 01 18 23 EA 99 AR Ac 50 -2 -[address] 93 NO ti 50 0- 0- 00 SI 35 LD ve 17 20 20 0 DE 10 08 08 RI 8 PH CH AR AR MA D CY W OF CY NT HI AN A 60 10 11 00 18 23 EA 99 AR Ac 50 -2 -[address] 93 NO ti 50 0- 7- 00 SI 35 LD ve 17 20 20 0 DE 10 08 08 RI 8 PH CH AR AR MA D CY W OF CY NT HI AN A ME 00 10 11 00 40 10 EA 10 AR Ac OC 09 -3 -[address] 07 NO ti HL 39 0- 7- 00 SI 93 LD ve OR 65 20 20 DE PE 20 08 08 RI RA 1 PH CH ZI AR AR NE MA D CY W 10 OF MG CY NT TA HI B AN A IM 00 10 11 00 9. 30 EA 99 AR Ac IT 17 -1 -[address] 91 NO ti RE 30 8- 7- 0 SI 55 LD ve X 73 20 20 DE 50 60 08 08 RI 1 PH CH MG AR AR MA D TA CY W BL ET OF CY NT HI AN A NA 00 10 11 00 60 30 EA 10 AR Ac ME 09 -2 -[address] 01 NO ti OX 30 4- 7- 00 SI 01 LD ve EN 14 20 20 DE 90 08 08 RI 50 1 PH CH 0 AR AR MG MA D CY W TA BL OF ET CY NT HI AN A PA 60 09 11 [...] ET HI AN A SM 49 05 11 02 30 30 EA 97 CLAUDIA Ac 34 -0 -[address] 92 SC ti 80 8- 7- 00 SI 21 H ve TA 40 20 20 DE AN KS 71 08 08 TO N 2 PH [...] 20 20 AI 80 08 08 D KS HC 1 PH CH L AR AE 50 M L #3 S MG 93 8 TA BL ET AM 00 10 10 00 30 10 [...] 7- 3- 00 SI 49 Av ve ME 02 20 20 DE ai ED 20 [...] CY OF CY NT HI AN A CI 00 10 10 00 14 7 RI 75 GA Ac ME 17 -0 -2 .0 TE 25 IN ti OF 25 4- 3- 00 42 EY ve LO 31 20 20 AI XA 26 08 08 D KS CI 0 PH CH N AR AE HC M L L #3 S 50 93 0 8 MG TA B MU 00 09 10 00 22 5 EA 99 No Ac PI 09 -2 -[address] 57 t ti RO 31 2- 9- 00 SI 03 Av ve CI 01 20 20 DE ai N 04 08 08 la 2% 2 PH bl AR e OI MA NT CY ME NT OF CY NT HI AN A ME [...] BL NT ET HI AN A ME 10 07 10 02 60 15 EA [...] 08 08 la TA 5 PH bl KS AR e N- MA CA CY FF [...] NT HI AN A ME 00 09 09 00 70 17 EA 99 No Ac ED 60 -0 -[address] 30 t ti NI 35 2- 1- 00 SI 99 Av ve SO 33 20 20 DE ai NE 82 08 08 la 1 PH bl 10 AR e MA MG CY TA OF BL CY ET NT HI AN A AM 00 09 [...] UL NT E HI AN A 60 08 09 00 10 12 EA 99 No Ac 50 -2 -[address] 24 t ti 50 7- 1- 00 SI 60 Av ve 17 20 20 0 DE ai 10 08 08 la 8 PH bl AR e MA CY OF CY NT HI AN A 60 09 09 00 24 6 EA 99 No Ac 25 -0 -[address] 36 t ti 80 5- 1- 00 SI 38 Av ve 23 20 20 0 DE ai 91 08 08 la 6 PH bl AR e MA CY OF CY NT HI AN A ME 00 07 09 01 60 15 EA [...] OF CY NT HI AN A 00 08 08 00 12 3 RI 74 WI Ac 40 -0 -2 .0 TE 51 CK ti 60 2- 8- 00 08 ER ve 35 20 20 AI 70 08 08 D JE 5 PH FF AR RE M Y #3 93 8 60 07 08 01 40 7 EA 98 No Ac 50 -0 -[address] 58 t ti 50 2 00 SI 97 Av ve 17 20 20 DE ai 10 08 08 la 8 PH bl AR [...] CY NT HI AN A ME 00 07 08 00 60 15 EA [...] ve TA 40 20 20 DE ai KS 71 08 08 la N 2 PH bl B1 AR e 2 MA 1, CY 00 0 OF MC CY G NT TA HI B AN A ME 00 02 07 04 60 15 EA [...] CY OF CY NT HI AN A 60 07 07 00 40 7 EA 98 No Ac 50 -0 -[address] 58 t ti 50 2- 7- 00 SI 97 Av ve 17 20 20 DE ai 10 08 08 la 8 PH bl AR e MA CY OF CY NT HI AN A ME 00 06 07 00 21 6 EA 98 No Ac TH 78 -1 -[address] 32 t ti YL 15 0- 3- 00 SI 32 Av ve ME 02 20 20 DE ai ED 20 [...] 20 AI IN 70 08 08 D KS 1 PH CH 50 AR AE 0 M L MG #3 S 93 CA 8 PS UL E SM 49 05 06 00 30 30 EA 97 No Ac 34 -0 -[address] 92 t ti 80 8- 2- 00 SI 21 Av ve TA 40 20 20 DE ai KS 71 08 08 la N 2 PH bl B1 AR e 2 MA 1, CY 00 0 OF MC CY G NT TA HI B AN A ME 00 02 06 03 60 15 EA 96 No Ac OM 78 -1 -[address] 85 t ti ET 11 8- 2- 00 SI 56 Av ve MAIN 83 20 20 DE ai ZI 01 08 08 la NE 0 PH bl AR e 25 MA CY MG OF TA CY BL NT ET HI AN A 00 06 06 00 8. 2 EA 98 No Ac 59 -0 -[address] 27 t ti 10 6- 2- 0 SI 57 Av ve 34 20 20 DE ai 90 08 08 la 1 PH bl AR e MA CY OF CY NT HI AN A ME 00 02 05 02 60 15 EA 96 No Ac OM 78 -1 -[address] 85 t ti ET 11 8- 2- 00 SI 56 Av ve MAIN 83 20 20 DE ai ZI 01 08 08 la NE 0 PH bl AR e 25 MA CY MG OF TA CY BL NT ET HI AN A 58 03 05 02 60 30 EA 97 No Ac 17 -0 -[address] 09 t ti 70 5- 2- 00 SI 93 Av ve 23 20 20 DE ai 70 08 08 la 4 PH bl AR e MA CY OF CY NT HI AN A SM 49 01 05 02 30 30 EA 96 No Ac 34 -1 -[address] 38 t ti 80 6- 2- 00 SI 58 Av ve TA 40 20 20 DE ai KS 71 08 08 la N 2 PH [...] 34 4- 4- 00 86 Av ve ME 59 20 20 AI ai ED 31 [...] 00 14 7 RI 72 No Ac ME 17 -1 -2 .0 TE 89 t [...] OF E CY NT HI AN A ME 00 02 04 01 60 15 EA [...] 08 08 la TA 8 PH bl KS AR e N- MA CA CY FF [...] ve TA 40 20 20 DE ai KS 71 08 08 la N 2 PH bl B1 AR e 2 MA 1, CY 00 0 OF MC CY G NT TA HI B AN A 65 02 03 00 90 30 [...] AM M PO #3 O 93 8 00 02 03 00 60 15 EA [...] 8- 6- 00 SI 54 Av ve ME 02 20 20 DE ai ED 20 08 08 la NI 7 PH bl SO AR e LO MA NE CY 4 OF MG CY NT DO HI SE AN PK A ME 00 02 03 00 60 15 EA 96 No Ac OM 78 -1 -[address] 85 t ti ET 11 8- 6- 00 SI 56 Av ve MAIN 83 20 20 DE ai ZI 01 08 08 la NE 0 PH bl AR e 25 MA CY MG OF TA CY BL NT ET HI AN A AZ 00 02 03 00 6. 5 EA 96 No Ac IT 09 -1 -[address] 85 t ti HR 37 8- 6- 0 SI 55 Av ve OM 14 20 20 DE ai YC 61 08 08 la IN 8 PH bl AR e 25 MA 0 CY MG OF TA CY BL NT ET HI AN A 65 01 03 00 90 30 CL 16 No Ac 48 -1 -2 .0 IN 28 t ti 30 6- 5- 00 IC 43 Av ve 70 20 20 ai 21 08 08 PH la 0 AR bl MA e CY 00 01 03 00 10 2 RI 71 No Ac 40 -1 -2 .0 TE 46 t ti 60 2- 5- 00 83 Av ve 35 20 20 AI ai 70 08 08 D la 5 PH bl AR e M #3 93 8 PE 54 01 03 00 48 30 [...] ve TA 40 20 20 DE ai KS 71 08 08 la N 2 PH [...] 93 -M 8 CR 10 0 MG Vital Signs 04-05-2013 22:43 Name Value Interpretat [...] Detail nces retati t Range on Lipase measurement (12-21-2016 19:10) Lipase = 185 73-393 complet measure 017 U/L ed ment 19:10 Comprehensive metabolic panel (12-21-2016 19:10) Protein = 7.6 6.4-8.2 complet total 017 gm/dL ed ser/chaz 19:10 s ALT = 32 12-78 complet (SGPT) 017 U/L ed ser/chaz 19:10 s Serum = 12 15-37 complet or 017 U/L ed plasma 19:10 asparta te aminotr ansfera Serum = 136 136-145 complet sodium 017 mmoL/L ed measure 19:10 ment Serum = 3.6 3.5-5.1 complet potassi 017 mmoL/L ed um 19:10 measure ment Serum = 92 74-106 complet or 017 mg/dL ed plasma 19:10 glucose measure ment (mas Serum = 3.2 1.3-3.2 complet globuli 017 gm/dL ed n 19:10 measure ment (mass/v olume) Estimat = 91 59- complet ed 017 ML/MIN ed glomeru 19:10 lar filtrat ion rate (GF Comment: REFERENCE RANGE: >60 ML/MIN/1.73 SQUARE METERS Comment: If this patient is -[place], then multiply the Comment: result by 1.210. Estimat = 71 50-200 complet ion of 017 ML/MIN ed creatin 19:10 ine renal clearan ce Serum = 0.7 0.55-1. complet or 017 mg/dL 02 ed plasma 19:10 creatin ine measure ment ( Carbon = 28 21.0-32 complet dioxide 017 mmoL/L .0 ed 19:10 measure ment Serum = 102 98-107 complet or 017 mmoL/L ed plasma 19:10 chlorid e measure ment (mo Serum = 9.7 8.5-10. complet or 017 mg/dL 1 ed plasma 19:10 calcium measure ment (mas Serum = 22 7-18 complet or 017 mg/dL ed plasma 19:10 urea nitroge n measure men Serum = 0.4 0.2-1.0 complet or 017 mg/dL ed plasma 19:10 total bilirub in measure m Serum = 99 46-116 complet or 017 U/L ed plasma 19:10 alkalin e phospha tase tk Serum = 4.4 3.4-5.0 complet or 017 gm/dL ed plasma 19:10 albumin measure ment (mas Serum = 1.4 1.1-1.8 complet or 017 ed plasma 19:10 albumin /globul in mass ra Amylase ser/plas (12-21-2016 19:10) Amylase = 72 25-115 complet 017 U/L ed ser/chaz 19:10 s CBC w auto diff (12-21-2016 19:10) Blood = 10.1 4.8-10. complet leukocy 017 K/MM3 8 ed fernanda 19:10 count (number /volume ) Automat = 12.3 11.5-17 complet ed 017 % .5 ed erythro 19:10 cyte distrib ution width Red = 4.21 4.2-5.4 complet blood 017 M/mm3 ed cell 19:10 count Blood = 272 142-424 complet platele 017 K/mm3 ed t count 19:10 Automat = 7.7 7.4-10. complet ed 017 fl 4 ed blood 19:10 platele t mean volume tk [place] % = 4.9 % 1.7-9.3 complet 017 ed 19:10 Absolut = 0.5 0.1-1.0 complet e 017 K/mm3 ed monocyt 19:10 e count Automat = 100.2 82.2-97 complet ed 017 fl .8 ed erythro 19:10 cyte mean corpusc ular v Automat = 31.6 31.8-35 complet ed 017 g/dl .4 ed erythro 19:10 cyte mean corpusc ular h Mean = 31.6 27-31.2 complet corpusc 017 pg ed ular 19:10 hemoglo bin (MCH) determ Lymphoc = 19.3 10-50.0 complet yte 017 % ed count, 19:10 blood, automat ed Absolut = 1.9 0.7-4.5 complet e 017 K/mm3 ed lymphoc 19:10 yte count Blood = 13.3 12.2-16 complet hemoglo 017 g/dL .2 ed bin 19:10 measure ment (mass/v olum Blood = 42.2 37.0-47 complet hematoc 017 % .0 ed rit 19:10 (volume fractio n) Granulo = 74.6 37.0-80 complet cyte 017 % .0 ed percent 19:10 age Blood = 7.5 1.8-7.8 complet granulo 017 K/mm3 ed cytes 19:10 automat ed count (numb Automat = 0.8 % 0.1-12. complet ed 017 0 ed blood 19:10 eosinop hils/10 0 leukocy t Automat = 0.1 0.0-0.4 complet ed 017 K/mm3 ed blood 19:10 eosinop hil count Baso % = 0.5 % 0.1-2.0 complet 017 ed 19:10 Automat = 0.1 0-0.2 complet ed 017 K/MM3 ed blood 19:10 basophi l count (count/ vo Lipase SerPl-cCnc (08-24-2016 16:44) Lipase 27 U/L [...] mg/dL 1 ed SerPl-m 19:15 Cnc Prot 03-21- 6.2 6.4-8.2 complet SerPl-m 014 gm/dL ed Cnc 19:15 Albumin 03-21- 3.6 3.4-5.0 complet 014 gm/dL ed SerPl-m [...] with AUTO DIFF (03-21-2013 19:15) WBC # 03-21-2 5.4 4.8-10. complet Bld 014 K/MM3 8 ed Auto 19:15 RBC # 03-21-2 3.74 4.2-5.4 complet Bld 014 M/mm3 ed [...] ed ULAR 19:15 HGB CONC RDW RBC 03-21- 14.4 % 11.5-17 complet Auto 014 .5 ed 19:15 Platele 270 142-424 complet t Bld 014 K/mm3 ed Ql 19:15 Manual MEAN 01-11-2 8.2 fl 7.4-10. complet PLATELE 014 4 ed T 19:15 VOLUME Granulo 03-21-2 60.3 % 37.0-80 complet cytes 014 .0 ed Fr Bld 19:15 Auto LYMPH % 03-21-2 29.5 % 10-50.0 complet 014 ed 19:15 Monocyt 03-21-2 3.8 % 1.7-9.3 complet es Fr 014 ed Bld 19:15 Auto Eosinop 03-21-2 5.9 % 0.1-12. complet hil Fr 014 0 ed Bld 19:15 Auto Basophi 03-21-2 0.6 % 0.1-2.0 complet ls Fr 014 ed Bld 19:15 Auto Granulo 03-21- 3.2 1.8-7.8 complet cytes # 014 K/mm3 [...] Bld 19:15 Auto URINALYSIS/COMPLETE (03-21-2013 19:15) URINE 03-21- YELLOW YELLOW complet COLOR 014 ed 19:15 URINE 03-21- CLEAR CLEAR complet APPEARA 014 ed NCE 19:15 URINE NEGATIV NEG complet GLUCOSE 014 E ed - 19:15 DIPSTIC K URINE NEGATIV NEG complet BILIRUB 014 E ed IN - 19:15 DIPSTIC K URINE 03-21-2 NEGATIV NEG complet KETONE 014 E mg/dL ed 19:15 URINE 03-21-2 1.020 1.005-1 complet SPECIFI 014 UNK .030 ed C 19:15 GRAVITY URINE 2+ NEG complet BLOOD 014 ed 19:15 URINE 03-21-2 6.0 UNK 5.0-8.5 complet PH 014 ed 19:15 URINE NEGATIV NEG complet PROTEIN 014 E mg/dL ed - 19:15 DIPSTIC K URINE 0.2 NEG complet UROBILI 014 E.U./dL ed NOGEN - 19:15 DIPSTIC K URINE NEGATIV NEG complet NITRATE 014 E ed - 19:15 DIPSTIC K URINE NEGATIV NEG complet LEUK 014 E ed ESTERAS 19:15 E URINE 5-10 0 complet RBC 014 rbc/hpf ed [...] (ESTIMA 013 ML/MIN ed ANGELA) 20:26 Sodium 144 136-145 complet SerPl-s 013 mmoL/L ed Cnc 20:26 Potassi 3.4 3.5-5.1 complet um 013 mmoL/L ed SerPl-s 20:26 Cnc Chlorid 105 98-107 complet e 013 mmoL/L ed SerPl-s 20:26 Cnc CO2 10-11- 28 21.0-32 complet SerPl-s 013 mmoL/L .0 ed Cnc 20:26 Calcium 9.1 8.5-10. complet 013 mg/dL 1 ed SerPl-m 20:26 Cnc Prot 8.3 6.4-8.2 complet SerPl-m 013 gm/dL ed Cnc 20:26 Albumin 4.3 3.4-5.0 complet 013 gm/dL ed SerPl-m 20:26 Cnc Globuli 10-11-2 4.0 1.3-3.2 complet n 013 gm/dL ed Ser-mCn 20:26 c Albumin 10-11-2 1.1 UNK 1.1-1.8 complet /Glob 013 ed SerPl-m 20:26 Rto Bilirub 10-11-2 0.3 0.2-1.0 complet 013 mg/dL ed SerPl-m 20:26 Cnc AST 10-11-2 18 U/L 15-37 complet SerPl-c 013 ed Cnc 20:26 ALT 10-11-2 60 U/L 30-65 complet SerPl-c 013 ed Cnc 20:26 ALP 10-11-2 175 U/L 50-136 complet SerPl-c 013 ed Cnc 20:26 Acetamin SerPl-mCnc (10-11-2012 20:26) Acetami 10-11-2 13.2 10-30 complet n 013 ug/mL ed SerPl-m 20:26 Cnc Salicylates SerPl-mCnc (10-11-2012 20:26) Salicyl 10-11-2 4.8 2.8-20. complet ates 013 mg/dL 0 ed SerPl-m 20:26 Cnc Ethanol Bld-mCnc (10-11-2012 20:26) Ethanol 10-11-2 0 mg/dL 0-99 complet 013 ed Bld-mCn 20:26 c CBC with AUTO DIFF (10-11-2012 20:26) WBC # 03-2 7.0 4.8-10. complet Bld 013 K/MM3 8 ed Auto 20:26 RBC # [id number] 4.39 4.2-5.4 complet Bld 013 M/mm3 ed Auto 20:26 Hgb 10-11-2 12.5 12.2-16 complet Bld-mCn 013 g/dL .2 ed c 20:26 Hct Fr 41.1 % 37.0-47 complet Bld 013 .0 ed 20:26 MCV RBC 93.6 fl 82.2-97 complet 013 .8 ed 20:26 MCH RBC 10-11- 28.6 pg 27-31.2 complet Qn 013 ed Auto 20:26 MEAN 08-03-2 30.6 31.8-35 complet CORPUSC 013 g/dl .4 ed ULAR 20:26 HGB CONC RDW RBC 08-03-2 17.0 % 11.5-17 complet Auto 013 .5 ed 20:26 Platele 08-03-2 386 142-424 complet t Bld 013 K/mm3 ed Ql 20:26 Manual MEAN 08-03-2 7.7 fl 7.4-10. complet PLATELE 013 4 ed T 20:26 VOLUME Granulo 08-03-2 60.9 % 37.0-80 complet cytes 013 .0 [...] Bld 20:26 Auto URINALYSIS/COMPLETE (09-04-2012 15:14) URINE 09-04-2 YELLOW YELLOW complet COLOR 013 ed 15:14 URINE 09-04-2 CLEAR CLEAR complet APPEARA 013 ed NCE 15:14 URINE NEGATIV NEG complet GLUCOSE 013 E ed - 15:14 DIPSTIC K URINE 2 NEGATIV NEG complet BILIRUB 013 E ed IN - 15:14 DIPSTIC K URINE 09-04-2 NEGATIV NEG complet KETONE 013 E mg/dL ed 15:14 URINE 09-04-2 1.025 1.005-1 complet SPECIFI 013 UNK .030 ed C 15:14 GRAVITY URINE 09-04-2 2+ NEG complet BLOOD 013 ed 15:14 URINE 09-04-2 6.0 UNK 5.0-8.5 complet PH 013 ed 15:14 URINE 09-04-2 NEGATIV NEG complet PROTEIN 013 E mg/dL ed - 15:14 DIPSTIC K URINE 09-04-2 0.2 NEG complet UROBILI 013 E.U./dL ed [...] 15:14 BASIC METABOLIC PANEL (07-12-2012 15:55) Glucose 07-12- 100 74-106 complet 013 mg/dL ed Bld-mCn 15:55 c BUN 12 7-18 complet Bld-mCn 013 mg/dL ed c 15:55 Creat 07-12- 0.7 0.6-1.0 complet SerPl-m 013 mg/dL ed Cnc 15:55 ESTIMAT 85 50-200 complet ED 013 ML/MIN ed CREATIN 15:55 INE CLEARAN CE GFR 93 59- complet (ESTIMA 013 ML/MIN ed ANGELA) 15:55 Sodium 138 136-145 complet SerPl-s 013 mmoL/L ed Cnc 15:55 Potassi 3.7 3.5-5.1 complet um 013 mmoL/L ed SerPl-s 15:55 Cnc Chlorid 103 98-107 complet e 013 mmoL/L ed SerPl-s 15:55 Cnc CO2 31 21.0-32 complet SerPl-s 013 mmoL/L .0 ed Cnc 15:55 Calcium 05-04-2 8.9 8.5-10. complet 013 mg/dL 1 ed SerPl-m 15:55 Cnc CBC with AUTO DIFF (07-12-2012 15:55) WBC # 05-04-2 6.3 4.8-10. complet Bld 013 K/MM3 8 ed Auto 15:55 RBC # 05-04-2 3.39 4.2-5.4 complet Bld 013 M/mm3 ed Auto 15:55 Hgb 05-04-2 9.6 12.2-16 complet Bld-mCn 013 g/dL .2 [...] 013 K/MM3 ed Bld 15:55 Auto URINALYSIS/COMPLETE (06-30-2012 21:25) URINE 06-30-2 YELLOW YELLOW complet COLOR 013 ed 21:25 URINE 06-30-2 CLEAR CLEAR complet APPEARA 013 ed NCE 21:25 URINE 06-30-2 NEGATIV NEG complet GLUCOSE 013 E ed - 21:25 DIPSTIC K URINE 06-30-2 NEGATIV NEG complet BILIRUB 013 E ed IN - 21:25 DIPSTIC K URINE 06-30-2 NEGATIV NEG complet KETONE 013 E mg/dL ed 21:25 URINE 06-30-2 1.025 1.005-1 complet SPECIFI 013 UNK .030 ed C 21:25 GRAVITY URINE 06-30-2 2+ NEG complet BLOOD 013 ed 21:25 URINE 06-30-2 6.0 UNK 5.0-8.5 complet PH 013 ed 21:25 URINE 06-30-2 NEGATIV NEG complet PROTEIN 013 E mg/dL ed - 21:25 DIPSTIC K URINE 22-2 0.2 NEG complet UROBILI 013 E.U./dL ed NOGEN - 21:25 DIPSTIC K URINE 22-2 NEGATIV NEG complet NITRATE 013 E ed - 21:25 DIPSTIC K URINE 22-2 NEGATIV NEG complet LEUK 013 E ed ESTERAS 21:25 E URINE 06-30-2 3-5 0 complet RBC 013 rbc/hpf ed 21:25 URINE 06-30-2 OCC O complet WBC 013 wbc/hpf ed 21:25 URINE 22-2 OCC 0-5 complet SQUAMOU 013 #/hpf ed S CELLS 21:25 URINE 06-30-2 TRACE O complet BACTERI 013 ed A 21:25 URINE 06-30-2 1+ OCC complet MUCUS 013 ed 21:25 COMPREHENSIVE METABOLIC PANEL (06-30-2012 21:15) Glucose 92 74-106 complet 013 mg/dL ed Bld-mCn 21:15 c BUN 11 7-18 complet Bld-mCn 013 mg/dL ed c 21:15 Creat 0.8 0.6-1.0 complet SerPl-m 013 mg/dL ed Cnc 21:15 GFR 80 59- complet (ESTIMA 013 ML/MIN ed ANGELA) 21:15 Sodium 139 136-145 complet SerPl-s 013 mmoL/L ed Cnc 21:15 Potassi 3.5 3.5-5.1 complet um 013 mmoL/L ed SerPl-s 21:15 Cnc Chlorid 102 98-107 complet e 013 mmoL/L ed SerPl-s 21:15 Cnc CO2 29 21.0-32 complet SerPl-s 013 mmoL/L .0 ed Cnc 21:15 Calcium 9.4 8.5-10. complet 013 mg/dL 1 ed SerPl-m 21:15 Cnc Prot 8.0 6.4-8.2 complet SerPl-m 013 gm/dL ed Cnc 21:15 Albumin 3.8 3.4-5.0 complet 013 gm/dL ed SerPl-m 21:15 Cnc Globuli 4.2 1.3-3.2 complet n 013 gm/dL ed Ser-mCn 21:15 c Albumin 0.9 UNK 1.1-1.8 complet /Glob 013 ed SerPl-m 21:15 Rto Bilirub 0.1 0.2-1.0 complet 013 mg/dL ed SerPl-m 21:15 Cnc AST 11 U/L 15-37 complet SerPl-c 013 ed Cnc 21:15 ALT 22 U/L 30-65 complet SerPl-c 013 ed Cnc 21:15 ALP 172 U/L 50-136 complet SerPl-c 013 ed Cnc 21:15 Amylase SerPl-cCnc (06-30-2012 21:15) Amylase 80 U/L 25-115 complet 013 ed SerPl-c 21:15 Cnc LIPASE (06-30-2012 21:15) LIPASE 121 U/L 73-393 complet 013 ed 21:15 CBC with AUTO DIFF (06-30-2012 21:15) WBC # 06-30-2 7.6 4.8-10. complet Bld 013 K/MM3 8 ed Auto 21:15 RBC # 06-30-2 4.02 4.2-5.4 complet Bld 013 M/mm3 ed Auto 21:15 Hgb 06-30-2 11.4 12.2-16 complet Bld-mCn 013 g/dL .2 ed c 21:15 Hct Fr 37.4 % 37.0-47 complet Bld 013 .0 ed 21:15 MCV RBC 93.1 fl 82.2-97 complet 013 .8 ed 21:15 MCH RBC 28.4 pg 27-31.2 complet Qn 013 ed Auto 21:15 MEAN 30.5 31.8-35 complet CORPUSC 013 g/dl .4 ed ULAR 21:15 HGB CONC RDW RBC 14.0 % 11.5-17 complet Auto 013 .5 ed 21:15 Platele 392 142-424 complet t Bld 013 K/mm3 ed Ql 21:15 Manual MEAN 7.8 fl 7.4-10. complet PLATELE 013 4 ed T 21:15 VOLUME Granulo 2 72.7 % 37.0-80 complet cytes 013 .0 ed Fr Bld 21:15 Auto LYMPH % 06-30-2 18.0 % 10-50.0 complet 013 ed 21:15 Monocyt 06-30-2 5.8 % 1.7-9.3 complet es Fr 013 ed Bld 21:15 Auto Eosinop 06-30-2 3.1 % 0.1-12. complet hil Fr 013 0 ed Bld 21:15 Auto Basophi 06-30-2 0.4 % 0.1-2.0 complet ls Fr 013 ed Bld 21:15 Auto Granulo 06-30-2 5.5 1.8-7.8 complet cytes # 013 K/mm3 ed Bld 21:15 Auto Lymphoc 22-2 1.4 0.7-4.5 complet ytes Fr 013 K/mm3 ed Bld 21:15 Auto Monocyt 22-2 0.4 0.1-1.0 complet es # 013 K/mm3 ed Bld 21:15 Auto Eosinop 22-2 0.2 0.0-0.4 complet hil # 013 K/mm3 ed Bld 21:15 Auto Basophi 22-2 0.0 0-0.2 complet ls # 013 K/MM3 ed Bld 21:15 Auto Procedures Procedure DOS Code Location Performer Comment THERAPEUT 27794 [facility] GARCIA [facility]AC INC INC TIC/DX INJECTION SUBQ/IM THER 65629 [facility] PROPH/DX 7 [facility] NJX IV E E PUSH [facility] SINGLE/1S T SBST/DRUG RINGERS J7120 [facility] LACTATE 7 [facility] HEALTHCAR INFUSION E E UP TO [facility] [address] [place] [address] [facility] LIPASE 7 [facility]ALTHCAR HEALTHCAR E E [facility] INJECTION J2405 [facility] 7 HEALTHCAR HEALTHCAR ONDANSETR E E ON HCL [facility] PER 1 MG COMPREHEN 29700 [facility] SIVE 7 [facility] METABOLIC E E PANEL [facility] THERAPEUT 29607 [facility] IC 7 [facility]ALTH[facility] HEALTHCAR INJECTION E E IV PUSH [facility] EACH NEW DRUG LOCM Q9967 [facility] 300-399 7 [facility]ALTH[facility] HEALTHCAR MG/ML E E IODINE [facility] CONCENTRA TION PER ML URNLS DIP 36652 [facility] 7 [facility]ALTH[facility] STICK/TAB E E LET RGNT [facility] AUTO W/O MICROSCOP Y URINE 48480 [facility] 7 [facility]ALTHCAR HEALTHCAR TEST E E VISUAL [facility] COLOR CMPRSN METHS THER 61096 [facility] PROPH/DX 7 [facility]ALTH[facility] HEALTHCAR NJX EA E E SEQL IV [facility] PUSH SBST/[place] [address] [facility] ABDOMEN & 7 [facility]ALTHCAR HEALTHCAR PELVIS E E W/CONTRAS [facility] T MATERIAL BLOOD 56948 [facility] COUNT 7 [facility] HEALTHCAR COMPLETE E E AUTO&AUTO [facility] DIFRNTL WBC RADEX ABD 10056 [facility] COMPL 7 AQT ABD ASSOCIATE W/S/E/D S [place] [address] [place] [address] [facility]OLOG[facility] TOM ABDOMEN & 7 PELVIS ASSOCIATE W/[place] [address] RADIOLOGY JIMENEZ ABDOMEN & 7 PELVIS ASSOCIATE W/CONTRAS S OF NOTH T MATERIAL GROUND A0425 [facility] TECHNICIAN [facility] TE[facility] MILEAGE 7 [place] PER MEDICAL MEDICAL [place] [address] RADIOLOGY TYRELL ABDOMEN & 7 PELVIS ASSOCIATE W/CONTRAS S OF NOT T MATERIAL ALPHA-1-A 61992 [facility] NTITRYPSI 7 [facility] N TOTAL FT FT KARINE KARINE COLLECTIO 62134 [facility] N VENOUS 7 [facility] BLOOD FT FT VENIPUNCT [place] 30318 [facility] ATT[facility] HEALTHCAR HEALTHCAR ON SKULL E EDGE E EDGE BASE MID-THIGH TRANSITIO [address] SRVC 7 PHYSICIAN DAY S DISCHARGE ADMN SET A7005 PATIENT PATIENT W/SM VOL 7 AIDS INC AIDS INC NONFILTR NEBULIZR NON-DISPB L ADMN SET A7003 YOUR YOUR SM VOL 7 PHARMACY PH[facility]AC[facility] PNEUMAT NEBULIZR DISPBL FILTER A7013 PATIENT PATIENT DISPOSABL 7 AIDS INC AIDS INC W/AREOSOL COMPRESS/ US GENERATOR NEBULIZER E0570 PATIENT PATIENT WITH 7 AIDS INC AIDS INC COMPRESSO R SBSQ [address]/DAY 25 PHYSICIAN MINUTES S HOSPITAL [address] [facility] DISCHARGE 7 [facility] MANAGEMEN PHYSICIAN T > 30 S MIN SBSQ [address]/DAY 25 PHYSICIAN MINUTES S SBSQ 12699 [facility] 7 [place] CARE/DAY 35 PHYSICIAN MINUTES S SBSQ [address] [facility] 7 [place] CARE/DAY 35 PHYSICIAN MINUTES S CRITICAL 80566 [facility] 7 [place] ILL/INJUR ED PHYSICIAN PATIENT S INIT 30-74 MIN RADIOLOGI 18655 [facility] [place] C 7 EXAMINATI ASSOCIATE ON CHEST S OF NOT SINGLE VIEW FRONTAL CRITICAL 17309 [facility] 7 [place] ILL/INJUR ED PHYSICIAN PATIENT S INIT 30-74 MIN SBSQ [address] [facility] 7 [place] CARE/DAY 35 PHYSICIAN MINUTES S SBSQ [address] [place] [address] [place] CARE/DAY 35 PHYSICIAN MINUTES S CRITICAL 74158 [facility] 7 [place] ILL/INJUR ED PHYSICIAN PATIENT S INIT 30-74 MIN CRITICAL 35221 [facility] 7 [place] ILL/INJUR ED PHYSICIAN PATIENT S INIT 30-74 MIN RADIOLOGI 54150 [facility] C 7 EXAMINATI ASSOCIATE ON CHEST [place] [address] RADI[facility] [place] ANGIOGRAP 7 III HY CHEST ASSOCIATE W/CONTRAS S OF NOT T/NONCONT RAST ECG 89580 [facility] ROUTINE 7 [place] ECG W/LEAST PHYSICIAN 12 LDS S EKG I&R ONLY ANES LWR 65871 ANESTHESI CHASE ABD 7 A GROUP VENTRAL & PRACTICE INCISIONA L HERNIA REPAIR MUSC [address] [facility] 7 [place] OUS/FASCI OCUTANEOU PHYSICIAN S FLAP S TRUNK RPR RECRT [address] [facility] 7 [place] INCAL/VNT HERNIA PHYSICIAN REDUCIBLE S IMPLANT 679[address] [facility] [place] HERNIA RPR/DEBRI [place]YS[place] S[place] 22520 ANESTHESI WEN DX/THER 7 A GROUP SBST PRACTICE INTRLMNR CRV/THRC W/[place] [address] [facility] 7 [facility] [place] [address] [place] [facility] 7 [facility] GROSS&ISAAC ROSCOPIC EXAM EGD [address]9632 ST [facility] TRANSORAL 7 [place] BIOPSY SINGLE/MU PHYSICIAN LTIPLE S COLONOSCO [address] [facility] PY 7 [place] W/BIOPSY SINGLE/MU PHYSICIAN LTIPLE S ANES 89532 ANESTHESI RANDY LOWER 7 A GROUP INTESTINE PRACTICE ENDOSCOPY DISTAL DUODENUM C-REACTIV [address] E PROTEIN 6 [facility] CTR MED CTR [facility] [employer] TECHNICIAN ST [place] [address] RADIOLOGY KLEIMEYER ABDOMEN & 6 KERLINE PELVIS ASSOCIATE W/CONTRAS S OF NOTH T MATERIAL ADMN SET A7003 YOUR YOUR SM VOL 6 PHARMACY PHARMACY [facility] PNEUMAT NEBULIZR DISPBL COMPREHEN 99088 RADHA GARCIA SIVE 6 [facility] METABOLIC INC INC PANEL C-REACTIV 49325 RADHA GARCIA E PROTEIN 6 [place] [address] RADHA GARCIA INFUSION 6 [facility] THERAPY/P INC INC ROPHYLAXI S /DX 1ST TO 1 HR BLOOD 92407 RADHA GARCIA COUNT 6 [facility] COMPLETE INC INC AUTO&AUTO DIFRNTL WBC RADIOLOGI 70805 [place] [facility] ALL C EXAM 6 MEDICAL CHEST 2 IMAGING VIEWS ASS FRONTAL&L ATERAL URNLS DIP 14362 RADHA GARCIA 6 [facility] STICK/TAB INC INC LET REAGENT AUTO MICROSCOP Y BLOOD 20424 RADHA GARCIA COUNT 6 [facility] COMPLETE INC INC AUTO&AUTO DIFRNTL WBC CULTURE 50933 RADHA GARCIA BACTERIAL 6 [facility] INC [place] [address] RADHA GARCIA ABDOMEN & 6 [facility] PELVIS INC INC W/O CONTRAST MATERIAL COMPREHEN 36988 RADHA GARCIA SIVE 6 [facility] METABOLIC INC INC PANEL THER 18587 RADHA GARCIA PROPH/DX 6 [facility] NJX IV INC INC PUSH SINGLE/1S T SBST/DRUG THERAPEUT 63860 RADHA GARCIA IC 6 [facility] INJECTION INC INC IV PUSH EACH NEW DRUG RADEX 57947 [place] [facility] SPINE 6 MEDICAL SANDRA LUMBOSACR IMAGING AL ASS MINIMUM 4 VIEWS CHEMOTX 73468 RADHA GARCIA ADMN IV 6 [facility] NFS TQ UP INC INC 1 HR SBST/DRUG BLOOD 81797 RADHA GARCIA COUNT 6 [facility] COMPLETE INC INC AUTO&AUTO DIFRNTL WBC INJECTION J3380 RADHA GARCIA 6 [facility] VEDOLIZUM INC INC AB 1 MG COMPREHEN 67160 RADHA GARCIA SIVE 6 [facility] METABOLIC INC INC PANEL C-REACTIV 36491 RADHA GARCIA E PROTEIN 6 [facility] INC INC GROUND A0425 [facility] MILEAGE 6 AMBULANCE AMBULANCE PER SERVICE SERVICE STATUTE MILE THERAPEUT 56203 RADHA GARCIA IC 6 [facility] PROPHYLAC INC INC TIC/DX INJECTION SUBQ/IM AMBULANCE A0429 [facility] SERVICE 6 AMBULANCE AMBULANCE BLS SERVICE SERVICE EMERGENCY TRANSPORT THERAPEUT 54001 [facility] IC 6 PHYSICIAN STONE PROPHYLAC S GROUP ZUHAIR DUVAL TIC/DX INJECTION SUBQ/IM ADMN SET A7003 YOUR YOUR SM VOL 6 PHARMACY PHARMACY [facility] PNEUMAT NEBULIZR DISPBL THERAPEUT 29191 [facility] IC 6 PHYSICIAN PHYSICIAN PROPHYLAC S GROUP S GROUP TIC/DX INJECTION SUBQ/IM INJECTION J3380 RADHA GARCIA 6 [facility] VEDOLIZUM INC INC AB 1 MG C-REACTIV 34167 RADHA GARCIA E PROTEIN 6 [facility] INC INC COMPREHEN 27739 RADHA GARCIA SIVE 6 [facility] METABOLIC INC INC PANEL BLOOD 55325 RADHA GARCIA COUNT 6 [facility] COMPLETE INC INC AUTO&AUTO DIFRNTL WBC CHEMOTX 78590 RADHA GARCIA ADMN IV 6 [facility] NFS UP INC INC 1 HR / SBST/DRUG ADMN SET A7003 YOUR YOUR SM VOL 6 PHARMACY PHARMACY [facility] PNEUMAT NEBULIZR DISPBL RADEX ABD 64174 [facility] ALL COMPL 6 MEDICAL AQT ABD IMAGING W/S/E/D ASS VIEWS 1 VIEW CH CHEMOTX 85622 RADHA THOMASON ADMN IV 6 [facility] NFS UP INC INC 1 HR SBST/DRUG BLOOD 76614 RADHA GARCIA COUNT 6 [facility] COMPLETE INC INC AUTO&AUTO DIFRNTL WBC C-REACTIV 86246 RADHA GARCIA E PROTEIN 6 [facility] INC INC COMPREHEN 06229 RADHAANYI GARCIA SIVE 6 [facility] METABOLIC INC INC PANEL INJECTION J3380 RADHAANYI GARCIA 6 [facility] VEDOLIZUM INC INC AB 1 MG INJECTION J3380 RADHA RADHA 6 [facility] VEDOLIZUM INC INC AB 1 MG COMPREHEN 04517 RADHA GARCIA SIVE 6 [facility] METABOLIC INC INC PANEL C-REACTIV 09819 RADHA GARCIA E PROTEIN 6 [facility] INC INC BLOOD 53626 RADHA GARCIA COUNT 6 [facility] COMPLETE INC INC AUTO&[place] [address] RADHA GARCIA INFUSION 6 [facility] THERAPY/P INC INC ROPHYLAXI S /DX 1ST TO 1 HR CHEMOTX 41210 RADHA GARCIA ADMN IV 5 [facility] NFS UP INC INC 1 HR SBST/DRUG BLOOD 19067 RADHA GARCIA COUNT 5 [facility] COMPLETE INC INC AUTO&AUTO DIFRNTL WBC C-REACTIV 83876 RADHA GARCIA E PROTEIN 5 [facility] INC INC COMPREHEN 89189 RADHA GARCIA SIVE 5 [facility] METABOLIC INC INC PANEL INJECTION C9026 RADHA GARCIA 5 [facility] VEDOLIZUM INC INC AB 1 MG PROTHROMB 09273 RADHA GARCIA IN TIME 5 [facility] INC INC TB CELL 21379 RADHA GARCIA MEDIATED 5 [facility] ANTIGN INC INC RESPNSE GAMMA INTERFERO N COLLECTIO 28533 RADHA GARCIA N VENOUS 5 [facility] BLOOD INC INC VENIPUNCT URE CYANOCOBA 14471 RADHA GARCIA JAKOB 5 [facility] VITAMIN INC INC B-12 COMPREHEN 45617 RADHA GARCIA SIVE 5 [facility] METABOLIC INC INC PANEL C-REACTIV 99905 RADHA GARCIA E PROTEIN 5 [facility] INC INC BLOOD 60776 RADHA GARCIA COUNT 5 [facility] COMPLETE INC INC AUTO&AUTO DIFRNTL WBC 25 80778 RADHA GARCIA HYDROXY 5 [facility] INCLUDES INC INC FRACTIONS IF PERFORMED RADEX 30445 [facility] SPINE 5 MEDICAL SANDRA CERVICAL IMAGING 4 OR 5 ASS VIEWS RADIOLOGI 15205 RADHA GARCIA C 5 [facility] EXAMINATI INC INC ON CHEST SINGLE VIEW FRONTAL BLOOD 17338 RADHA GARCIA COUNT 5 [facility] COMPLETE INC INC AUTO&AUTO DIFRNTL WBC NATRIURET 38066 RADHA GARCIA IC 5 [facility] [place] [address] RADHA GARCIA TROPONIN 5 [facility] QUANTITAT INC INC ANIYAH ECG 43104 [facility] LUNDBERG ROUTINE 5 REJI REJI ECG W/LEAST 12 LDS I&R ONLY PRESSURIZ 94683 RADHA GARCIA ED/NONPRE 5 [facility] SSURIZED INC INC INHALATIO N TREATMENT COMPREHEN 74365 RADHA GARCIA SIVE 5 [facility] METABOLIC INC INC PANEL ECG 49831 RADHA GARCIA ROUTINE 5 [facility] ECG INC INC W/LEAST 12 LDS TRCG ONLY W/O I&R NEBULIZER E0570 [facility] BLOOM WITH 5 HOME HOME COMPRESSO MEDICAL MEDICAL R EQUIPME EQUIPME ADMN SET A7003 YOUR YOUR SM VOL 5 [facility] P[facility]UM[facility] NEBUL[facility] DISPBL THERAPEUT 32301 [facility] IC 5 PHYSICIAN ISAAC PROPHYLAC S GROUP TIC/DX INJECTION SUBQ/IM INJECTION J1040 [facility] 5 PHYSICIAN ISAAC METHYLPRE S GROUP DNISOLONE ACETATE 80 MG PRESSURIZ 76961 [facility] ED/NONPRE 5 PHYSICIAN ISAAC SSURIZED S GROUP INHALATIO N TREATMENT RADIOLOGI 43944 [facility] C EXAM 5 MEDICAL CHEST 2 IMAGING VIEWS ASS FRONTAL&L ATERAL UNCLASSIF J3490 RADHA GARCIA IED DRUGS 5 [facility] INC INC EGD 41519 RADHA GARCIA TRANSORAL 5 [facility] BIOPSY INC INC SINGLE/MU LTIPLE [place] [address] [place] [facility] PY 5 MEDICAL KERLINE W/BIOPSY SERV SINGLE/[place] [address] [facility] SURG [address] [place] [address] PATHOLOGY GROSS&ISAAC ROSCOPIC EXAM RADIOLOGI 08305 [place] BE[place] C EXAM 5 [facility] CHEST 2 IMAGING VIEWS ASS FRONTAL&[place] [address] RAD[facility] GARC[facility] THYROXINE 5 [facility] [place] [address] RAD[facility] THYROID 5 [facility] STIMULATI INC INC NG HORMONE TSH 25 80295 [facility] G[facility] HYDROXY 5 [facility] INCLUDES [place] [address] [facility] TRIIODOTH 5 [facility] YRONINE INC INC T3 FREE COMPREHEN 29698 [facility] SIVE 5 [facility] METABOLIC INC INC PANEL THERAPEUT 46094 [facility] IC 5 PHYSICIAN ISAAC PROPHYLAC S GROUP TIC/DX INJECTION SUBQ/IM MICROSOMA 80075 [facility] L 5 [facility] ANTIBODIE INC INC S EACH COLLECTIO 70412 [facility] VENOUS 5 PHYSICIAN ISAAC BLOOD S GROUP VENIPUNCT URE RADIOLOGI 18358 [place] JOSE C EXAM 5 [facility] CHEST 2 IMAGING VIEWS ASS FRONTAL&[place] [address] [facility] G[facility] IRON 5 [facility] INC INC IRON 11216 [facility] BINDING 5 [facility] CAPACITY INC INC BLOOD 92060 [facility] COUNT 5 [facility] COMPLETE INC INC AUTO&AUTO DIFRNTL WBC 25 27072 RADHAANYI GARCIA HYDROXY 5 [facility] INCLUDES INC INC FRACTIONS IF PERFORMED CYANOCOBA 51854 [facility] JAKOB 5 [facility] VITAMIN INC INC B-12 COLLECTIO 39848 [facility] G[facility] N VENOUS 5 [facility] BLOOD INC INC VENIPUNCT URE COMPREHEN 39554 [facility] THOMASON SIVE 5 [facility] METABOLIC INC INC PANEL C-REACTIV 57938 [facility] E PROTEIN 5 [facility] INC INC RADEX 54018 [place] ABDOMEN 1 5 MEDICAL ROM IMAGING ANTEROPOS ASS TERIOR VIEW RADEX 84092 [facility] ABDOMEN 5 [facility] COMPL INC INC W/DCBTS&/ ERC VIEWS OPHTH 58809 SCIFRES SCIFRES MEDICAL 5 ANG ANG XM&EVAL COMPRE NEW PT 1/> VST COMPREHEN 98683 [facility]HA SIVE 5 [facility] METABOLIC INC INC PANEL 25 17619 [facility] G[facility] HYDROXY 5 [facility] INCLUDES INC INC FRACTIONS IF PERFORMED BLOOD 39054 [facility] GARCIA COUNT 5 [facility] COMPLETE INC INC AUTO&[place] [address] RAD[facility] GARCIA FREE 5 [facility] [place] [address] [facility] G[facility] THYROID 5 [facility] STIMULATI INC INC NG HORMONE TSH RADIOLOGI 34983 RAD[facility] GARCIA C EXAM 4 [facility] CHEST 2 INC INC VIEWS FRONTAL&L ATERAL IAADI 54274 [facility] GARCIA INFLUENZA 4 [facility] B VIRUS INC INC IAADI 39192 [facility] G[facility] INFFLUENZ 4 [facility] A A VIRUS INC INC HOSPITAL 0[address] [facility] 4 PHYSICIAN ISAAC DAY S GROUP MANAGEMEN T 30 MIN/< SBSQ 80259 [facility] 4 PHYSICIAN ISAAC CARE/DAY S GROUP 15 MINUTES INITIAL 64263 [facility] 4 PHYSICIAN ISAAC CARE/DAY S GROUP 50 MINUTES RADIOLOGI 84411 [facility] 4 MEDICAL [facility] EXAMINATI IMAGING ON CHEST ASS SINGLE VIEW FRONTAL CT THORAX 38932 [facility] 4 MED[facility] W/CONTRAS IMAGING T ASS MATERIAL ECG 99627 TASHIA LAO JR ROUTINE 4 DWI DWI ECG W/LEAST 12 LDS I&R ONLY THERAPEUT 58768 RADHAANYI GARCIA IC 4 [facility] INJECTION [place] [address] RADHA GARCIA INFUSION 4 [facility] THERAPY/P INC INC ROPHYLAXI S /DX 1ST TO 1 HR COMPREHEN 15479 [facility] GARCIA SIVE 4 [facility] METABOLIC INC INC PANEL BLOOD 95861 [facility] GARCIA COUNT 4 [facility] COMPLETE INC INC AUTO&AUTO DIFRNTL WBC RADEX ABD 01691 [facility] COMPL 4 MEDICAL ROM AQT ABD IMAGING W/S/E/D ASS VIEWS 1 VIEW CH NZYM 42049 [facility] UNIVERS ACTIV BLD 4 Y Y [facility] CELLS/TIS S NONRADACT SUBSTRATE EA BLOOD 42824 [facility] COUNT 4 Y Y [facility] AUTO&AUTO DIFRNTL WBC IRON 95125 [facility] BINDING 4 Y [place] [address] 12332 [facility] HYDROXY 4 Y Y INCLUDES HOSPITAL H[place] [address] [facility] FERRITIN 4 Y Y [facility] COMPREHEN 17790 [facility] SIVE 4 Y Y [facility]ABOLIC [facility] PANEL C-REACTIV 74429 [facility] UNIVERS E PROTEIN 4 Y Y HOSPITAL HOSPITAL TB CELL 36600 [facility] MEDIATED 4 Y Y ANTIGN [facility] RESPNSE GAMMA INTERFERO N COLLECTIO 82916 [facility] N VENOUS 4 Y Y BLOOD [facility] VENIPUNCT URE CYANOCOBA 32815 [facility] JAKOB 4 Y Y VITAMIN [facility] B-12 RADIOLOGI 02555 [place] C EXAM 4 MEDICAL ROM CHEST 2 IMAGING VIEWS ASS FRONTAL&[place] [address] RAD[facility] THOMASON TRACT UPR 4 [facility] W/SM INT INC INC W/MULT SERIAL [place] [address] [place] UPR W/WO 4 MEDICAL [facility] GLUCOSE IMAGING W/SM ASS INTEST FOLLW-THR U BASIC 22558 RADHA GARCIA METABOLIC 4 [facility] PANEL INC INC CALCIUM TOTAL RADEX 55604 [place] ABDOMEN 4 MEDICAL ROM COMPL IMAGING W/DCBTS&/ [place] [address] [place] ABDOMEN & 4 MEDICAL ROM PELVIS IMAGING W/[place] [address] [place] ABDOMEN & 4 MEDICAL ROM PELVIS IMAGING W/O ASS CONTRAST MATERIAL RADEX 60653 [place] SPINE 4 MEDICAL SANDRA LUMBOSACR IMAGING AL ASS MINIMUM 4 VIEWS AMBULANCE A0429 [facility] SERVICE 4 AMBULANCE AMBULANCE BLS SERVICE SERVICE EMERGENCY TRANSPORT GROUND A0425 [facility] MILEAGE 4 AMBULANCE AMBULANCE PER SERVICE SERVICE STATUTE MILE RADEX ABD 52947 [facility] TERESA COMPL 4 ROM ROM AQT ABD W/S/E/D VIEWS 1 VIEW CH ECG 17155 MCKEMIE GEOFFREYKEMIE ROUTINE 3 JR JUAN ANTONIO JR JUAN ANTONIO ECG W/LEAST 12 LDS I&R ONLY RADEX 45239 TERES[facility] TERESA ABDOMEN 1 3 ROM ROM ANTEROPOS TERIOR VIEW REMOVAL 33690 BOTTIGGI BOTTIGGI PERITONEA 3 ANT ANT L FOREIGN BODY FROM CAVITY ANES 52172 JIAN VILLAR INTRAPERI 3 CELESTINE CELESTINE TONEAL UPPER [place]BDOMEN [place] [address] MORRISON MORRISON SURG 3 JUAN ANTONIO JUAN ANTONIO PATHOLOGY GROSS EXAMINATI ON ONLY SUSCEPTIB 57198 RADHA GARCIA LTY STDY 3 [facility] ANTIMICRB INC INC IAL MICRO/AGA R DILUTJ BASIC 30593 RADHA GARCIA METABOLIC 3 [facility] PANEL INC INC CALCIUM TOTAL CUL BACT 71684 RADHA GARCIA XCPT 3 [facility] URINE INC INC BLOOD/STO OL AEROBIC ISOL CUL BACT 30645 RADHA GARCIA AEROBIC 3 [facility] ADDL INC INC METHS DEFINITIV E EA ISOL BLOOD 66109 RADHA GARCIA COUNT 3 [facility] COMPLETE INC INC AUTO&AUTO DIFRNTL WBC BLOOD 23301 RADHA GARCIA COUNT 3 [facility] COMPLETE INC INC AUTO&[place] [address] RADHA GARCIA AMYLASE 3 [facility] INC INC URNLS DIP 04875 RADHA GARCIA 3 [facility] STICK/TAB INC INC LET REAGENT AUTO MICROSCOP Y COMPREHEN 76550 RADHA GARCIA SIVE 3 [facility] [place] [address] RADHA GARCIA LIPASE 3 [facility] INC INC RADIOLOGI 39089 TERESA TERESA C EXAM 3 ROM ROM CHEST 2 VIEWS FRONTAL&L ATERAL RADIOLOGI 71605 TERESA TERESA C EXAM 3 ROM ROM CHEST 2 VIEWS FRONTAL&L ATERAL RADIOLOGI 75179 TERESA TERESA C 3 ROM ROM EXAMINATI ON CHEST SINGLE VIEW FRONTAL ANES 26844 BOBBY HORNE INTRAPERI 3 ANESTH TONEAL OF THE UPPER BLUE ABDOMEN W/LAPS NOS COLECTOMY 50651 WENDY NGUYEN PRTL 3 BOONE BOONE W/RMVL TERMINAL ILEUM & [place] [address] LEON ISAAC LEON ISAAC SURG 3 PATHOLOGY GROSS&ISAAC ROSCOPIC EXAM OPEN AND 4572 RADHA RADHA OTHER 3 [facility] CECECTOMY INC INC COMPREHEN 76729 RADHA GARCIA SIVE 3 [facility] METABOLIC INC INC PANEL BLOOD 16949 RADHA GARCIA COUNT 3 [facility] COMPLETE INC INC AUTO&AUTO DIFRNTL WBC BLOOD 91501 RADHA GARCIA COUNT 3 [facility] COMPLETE INC INC AUTO&AUTO DIFRNTL WBC RADEX ABD 12087 TERESA TERESA COMPL 3 ROM ROM AQT ABD W/S/E/D VIEWS 1 VIEW CH URNLS DIP 68813 RADHA THOMASON 3 [facility] STICK/TAB INC INC LET REAGENT AUTO MICROSCOP Y COMPREHEN 95233 RADHA RADHA SIVE 3 [facility] METABOLIC INC INC PANEL THERAPEUT 48706 RADHA GARCIA IC 3 [facility] INJECTION INC [place] [address] RADHA GARCIA LIPASE 3 [facility] INC INC THER 69529 RADHA GARCIA PROPH/DX 3 [facility] NJX IV INC INC PUSH SINGLE/1S T SBST/DRUG IAADI 53849 RADHA GARCIA INFFLUENZ 3 [facility] A A VIRUS INC INC IAADI 98947 RADHA GARCIA INFLUENZA 3 [facility] [place] [address] RADHA GARCIA LIPASE 2 [facility] INC INC THERAPEUT 00221 RADHA GARCIA IC 2 [facility] INJECTION INC INC IV PUSH EACH NEW DRUG COMPREHEN 98815 RADHA GARCIA SIVE 2 [facility] METABOLIC INC INC PANEL LOCM Q9967 RADHA GARCIA 300-399 2 [facility] MG/ML INC INC IODINE CONCENTRA TION PER ML URNLS DIP 01683 RADHA GARCIA 2 [facility] STICK/TAB INC [place] [address] [place] ABDOMEN & 2 MEDICAL ROM PELVIS IMAGING W/CONTRAS ASS T MATERIAL THER 55496 RADHA GARCIA PROPH/DX 2 [facility] NJX EA INC INC SEQL IV PUSH SBST/[place] [address] RADHA GARCIA AMYLASE 2 [facility] INC INC BLOOD 85051 RADHA GARCIA COUNT 2 [facility] COMPLETE INC INC AUTO&AUTO DIFRNTL WBC 3D 76140 RADHA GARCIA RENDERING 2 [facility] INC INC W/INTERP& [place] [address] RADHA GARCIA INFUSION 2 [facility] THERAPY/P INC INC ROPHYLAXI S /DX 1ST TO 1 HR RADEX 24366 SHARON MOORE ABDOMEN 1 2 MEDICAL ROM IMAGING ANTEROPOS ASS TERIOR VIEW RADIOLOGI 53452 SHARON MOORE C EXAM 2 MEDICAL ROM CHEST 2 IMAGING VIEWS ASS FRONTAL&L ATERAL SKIN TEST 77283 RADHA GARCIA 2 [facility] TUBERCULO [place] [address] RADHA RADHA LIPASE 2 [facility] INC INC COMPREHEN 89130 RADHA THOMASON SIVE 2 [facility] METABOLIC INC INC PANEL URNLS DIP 17584 RADHAANYI GARCIA 2 [facility] STICK/TAB INC INC [place] [address] RADHA GARCIA AMYLASE 2 [facility] INC INC CULTURE 75971 RADHA GARCIA BACTERIAL 2 [facility] INC INC QUANTTATI VE COLONY COUNT URINE BLOOD 99859 RADHA GARCIA COUNT 2 [facility] COMPLETE INC INC AUTO&[place] [address] RADHA GARCIA INFUSION 2 [facility] THERAPY/P INC INC ROPHYLAXI S /DX 1ST TO 1 [place] [address] RADHA GARCIA INFUSION 2 [facility] THERAPY INC INC PROPHYLAX IS/DX EA HOUR EGD 33158 RADHA GARCIA TRANSORAL 2 [facility] BIOPSY INC INC SINGLE/MU LTIPLE CUL 64616 RADHA GARCIA PRSMPTV 2 [facility] PTHGNC INC INC ORGANISMS SCR DNS CHART CRITICAL [address] [facility] CARE 2 ISAAC ISAAC ILL/INJUR ED PATIENT INIT 30-74 MIN ECG 64291 TAMIKA ALEGRIASON ROUTINE 2 REJI REJI ECG W/LEAST 12 LDS I&R ONLY URINE 25744 RADHA GARCIA 2 [facility] TEST INC INC VISUAL COLOR CMPRSN METHS URNLS DIP 99647 RADHA GARCIA 2 [facility] STICK/TAB INC INC LET REAGENT AUTO MICROSCOP Y RADEX 51602 RADHA GARCIA SMALL 2 [facility] INTESTINE INC INC [place] [address] [facility] UPR W/WO 2 MEDICAL ROM GLUCOSE IMAGING W/SM ASS INTEST FOLLW-THR U BLOOD 52198 RADHA GARCIA COUNT 2 [facility] COMPLETE INC INC AUTO&AUTO DIFRNTL WBC C-REACTIV 07069 RADHA GARCIA E PROTEIN 2 [facility] INC INC OPHTH 11600 [facility] MEDICAL 2 XM&EVAL COMPRE NEW PT 1/> VST DETERMINA 14364 [facility] TION 2 REFRACTIV E STATE BLOOD 20212 RADHA GARCIA COUNT 2 [facility] COMPLETE INC INC AUTO&[place] [address] RADHA GARCIA INFUSION 2 [facility] THERAPY/P INC INC ROPHYLAXI S /DX 1ST TO 1 [place] [address] RADHA GARCIA AMYLASE 2 [facility] INC INC URNLS DIP 56932 RADHA GARCIA 2 [facility] STICK/TAB INC INC LET REAGENT AUTO MICROSCOP Y THERAPEUT 61400 RADHA GARCIA IC 2 [facility] INJECTION INC [place] [address] RADHA GARCIA LIPASE 2 [facility] INC INC COMPREHEN 33438 RADHA GARCIA SIVE 2 [facility] METABOLIC INC INC PANEL COMPREHEN 73957 RADHA GARCIA SIVE 2 [facility] [place] [address] RADHA GARCIA LIPASE 2 [facility] INC INC THER 10583 RADHA GARCIA PROPH/DX 2 [facility] NJX IV INC INC PUSH SINGLE/1S T SBST/DRUG BLOOD 86237 RADHA GARCIA COUNT 2 [facility] COMPLETE INC INC AUTO&AUTO DIFRNTL WBC BLOOD 97845 RADHAANYI GARCIA COUNT 2 [facility] COMPLETE INC INC AUTO&AUTO DIFRNTL WBC URNLS DIP 81672 RADHA GARCIA 2 [facility] STICK/TAB INC INC [place] [address] RADHA GARCIA AMYLASE 2 [facility] INC INC THERAPEUT 72562 RADHA GARCIA IC 2 [facility] PROPHYLAC INC INC TIC/DX INJECTION SUBQ/[place] [address] RADHA GARCIA LIPASE 2 [facility] INC INC COMPREHEN 70892 RADHA GARCIA SIVE 2 [facility] METABOLIC INC INC PANEL THERAPEUT 72690 RADHA GARCIA IC 2 [facility] PROPHYLAC INC INC TIC/DX INJECTION SUBQ/IM THERAPEUT 22856 RADHA GARCIA IC 2 [facility] PROPHYLAC INC INC TIC/DX INJECTION SUBQ/IM AMB A0427 [facility] SERVICE 2 AMBULANCE AMBULANCE ALS SERVICE SERVICE EMERGENCY TRANSPORT LEVEL 1 GROUND A0425 [facility] MILEAGE 2 AMBULANCE AMBULANCE PER SERVICE SERVICE STATUTE MILE RADEX 34201 RADHA GARCIA SPINE 2 [facility] LUMBOSACR INC INC AL MINIMUM 4 VIEWS RADEX 83919 RADHA GARCIA RIBS UNI 2 [facility] W/POSTERO INC INC ANT CH MINIMUM 3 VIEWS RADEX HIP 38484 RADHA GARCIA 2 [facility] UNILATERA INC INC L COMPLETE MIN[place] [address] [place] [address] RADHA GARCIA ABDOMEN & 1 [facility] PELVIS INC INC W/[place] [address] RADHA GARCIA INFUSION 1 [facility] THERAPY/P INC INC ROPHYLAXI S /DX 1ST TO 1 HR BASIC 98087 RADHA GARCIA METABOLIC 1 [facility] PANEL INC INC CALCIUM TOTAL 3D 72303 RADHA GARCIA RENDERING 1 [facility] INC INC W/INTERP& POSTPROC DIFF WORK STATION BLOOD 68126 RADHA GARCIA COUNT 1 [facility] COMPLETE INC INC AUTO&AUTO DIFRNTL WBC URNLS DIP 95036 RADHA THOMASON 1 [facility] STICK/TAB INC [place] [address] RADHA GARCIA INFUSION 1 [facility] THERAPY INC INC [place] [address] RADHA GARCIA LIPASE 1 [facility] INC INC INJECTION J2405 RADHA GARCIA 1 [facility] ONDANSETR INC INC ON HCL PER 1 MG HEPATIC 62232 RADHA GARCIA FUNCTION 1 [facility] [address] RADHA GARCIA INFUSION 1 [facility] THERAPY INC [place] [address] RADHA GARCIA INFUSION 1 [facility] THERAPY/P INC INC ROPHYLAXI S /DX 1ST TO 1 HR INJECTION J1745 RADHA THOMASON 1 [facility] INFLIXIMA INC INC B EXCLUDES BIOSIMILA R 10 MG 3D 91803 RADHA GARCIA RENDERING 1 [facility] INC INC W/INTERP& POSTPROC DIFF WORK STATION BLOOD 69978 RADHA GARCIA COUNT 1 [facility] COMPLETE INC INC AUTO&AUTO DIFRNTL WBC URINE 42120 RADHA GARCIA 1 [facility] TEST INC INC VISUAL COLOR CMPRSN METHS RADIOLOGI 47596 RADHA GARCIA C EXAM 1 [facility] CHEST 2 INC INC VIEWS FRONTAL&L ATERAL URNLS DIP 08236 RADHA GARCIA 1 [facility] STICK/TAB INC INC LET REAGENT AUTO [place]CROSCOP Y [place] SOFT 01501 RADHA RADHA TISSUE 1 [facility] NECK INC INC W/CONTRAS T MATERIAL GROUND A0425 [facility] MILEAGE 1 AMBULANCE AMBULANCE PER SERVICE SERVICE STATUTE MILE INJECTION J2405 RADHA GARCIA 1 [facility] ONDANSETR INC INC ON HCL PER 1 MG AMBULANCE A0429 [facility] SERVICE 1 AMBULANCE AMBULANCE BLS SERVICE SERVICE EMERGENCY TRANSPORT IAADI 11319 RADHA GARCIA INFLUENZA 1 [facility] B VIRUS INC INC IAADI 35223 RADHA GARCIA INFFLUENZ 1 [facility] A A VIRUS INC INC COMPREHEN 00798 RADHA GARCIA SIVE 1 [facility] [address] RADHA GARCIA STREPTOCO 1 [facility] [place] [address] RADHA GARCIA STREPTOCO 1 [facility] CCUS INC INC GROUP A IAADI 82018 RADHA GARCIA INFFLUENZ 1 [facility] A A VIRUS INC INC IAADI 09138 RADHA GARCIA INFLUENZA 1 [facility] [place] [address] RADHA GARCIA INFUSION 1 [facility] THERAPY INC [place] [address] RADHA GARCIA INFUSION 1 [facility] THERAPY/P INC INC ROPHYLAXI S /DX 1ST TO 1 HR RADIOLOGI 98250 [place] C EXAM 1 MEDICAL ROM CHEST 2 IMAGING VIEWS ASS FRONTAL&L ATERAL SKIN TEST 94644 RADHA GARCIA 1 [facility] TUBER[place] [address] RADHA GARCIA INFUSION 1 [facility] THERAPY INC INC PROPHYLAX IS/DX EA HOUR RADIOLOGI 76947 RADHA GARCIA C EXAM 1 [facility] CHEST 2 INC INC VIEWS FRONTAL&[place] [address] RADHA GARCIA INFUSION 1 [facility] THERAPY/P INC INC ROPHYLAXI S /DX 1ST TO 1 HR 3D 49161 RADHA GARCIA RENDERING 1 [facility] INC INC W/INTERP& [place] [address] RADHA GARCIA ABDOMEN & 1 [facility] PELVIS INC INC W/O CONTRAST MATERIAL BLOOD 11781 RADHA GARCIA COUNT 1 [facility] COMPLETE INC INC AUTO&AUTO DIFRNTL WBC URNLS DIP 97291 RADHA GARCIA 1 [facility] STICK/TAB INC INC [place] [address] RADHA GARCIA LIPASE 1 [facility] INC INC COMPREHEN 15056 RADHA GARCIA SIVE 1 [facility] METABOLIC INC INC PANEL URNLS DIP 97631 RADHA GARCIA 1 [facility] STICK/TAB INC INC LET REAGENT AUTO MICROSCOP Y BLOOD 97941 RADHA GARCIA COUNT 1 [facility] COMPLETE INC INC AUTO&AUTO DIFRNTL WBC BASIC 03966 RADHA GARCIA METABOLIC 1 [facility] [address] RADHA GARCIA INFUSION 1 [facility] THERAPY/P INC INC ROPHYLAXI S /DX 1ST TO 1 HR BLOOD 21582 RADHA GARCIA COUNT 1 [facility] COMPLETE INC INC AUTO&AUTO DIFRNTL WBC URNLS DIP 36878 RADHA GARCIA 1 [facility] STICK/TAB INC [place] [address] RADHA GARCIA INFUSION 1 [facility] THERAPY INC INC [place] [address] RADHA GARCIA AMYLASE 1 [facility] INC INC COMPREHEN 51655 RADHA GARCIA SIVE 1 [facility] [place] [address] RADHA RADHA LIPASE 1 [facility] INC INC SKIN TEST 99575 RADHA GARCIA 1 COUNTS INCLUDE [facility] C[facility] SIS INTRADERM AL RADIOLOGI 54759 [place] C EXAM 1 MEDICAL ROM CHEST 2 IMAGING VIEWS ASS FRONTAL&L ATERAL URNLS DIP 31527 RADHA GARCIA 1 [facility] STICK/TAB INC INC [place] [address] RADHA GARCIA CLOSTRIDI 0 [facility] [place] [address] RADHA GARCIA GIARDIA 0 [facility] INC INC CUL BACT 35351 RADHA GARCIA STOOL 0 [facility] AEROBIC INC INC ISOL SALMONELL A&SHIGELL C-REACTIV 14999 RADHA GARCIA E PROTEIN 0 [facility] HIGH INC INC SENSITIVI TY OVA&JACQUELINE 58040 RADHA GARCIA ITES 0 [facility] DIRECT INC INC SMEARS CONCENTRA TION & [place] [address] RADHA GARCIA INFUSION 0 [facility] THERAPY/P INC INC ROPHYLAXI S /DX 1ST TO 1 HR URNLS DIP 65373 RADHA GARCIA 0 [facility] STICK/TAB INC [place] [address] ARDHA GARCIA INFUSION 0 [facility] THER INC INC PROPH ADDL SEQUENTIA L [place] 1 [place] [address] RADHA RADHA AMYLASE 0 [facility] INC INC URNLS DIP 69457 RADHA GARCIA 0 [facility] STICK/TAB INC INC LET REAGENT AUTO MICROSCOP Y BLOOD 65307 RADHA GARCIA COUNT 0 [facility] COMPLETE INC INC AUTO&[place] [address] RADHA RADHA LIPASE 0 [facility] INC INC COMPREHEN 14844 RADHA GARCIA SIVE 0 [facility] [place] [address] RADHA RADHA STREPTOCO 0 [facility] CCUS INC INC GROUP A RADEX TOE 02004 RADHA GARCIA MINIMUM 0 [facility] 2 VIEWS INC INC AMBULANCE A0429 [facility] SERVICE 0 AMBULANCE AMBULANCE BLS SERVICE SERVICE EMERGENCY TRANSPORT GROUND A0425 [facility] MILEAGE 0 AMBULANCE AMBULANCE PER SERVICE SERVICE STATUTE MILE PHYSICAL 72473 RADHA GARCIA THERAPY 9 [facility] EVALUATIO INC INC N THERAPEUT 64193 RADHA GARCIA IC PX 1/> 9 [facility] AREAS INC INC EACH 15 MIN EXERCISES APPL 75931 RADHA GARCIA MODALITY 9 [facility] 1/> AREAS INC INC ELEC STIMJ UNATTENDE D APPLICATI 23947 RADHA GARCIA ON 9 [facility] MODALITY INC INC 1/> AREAS HOT/COLD PACKS APPL 80407 RADHA GARCIA MODALITY 9 [facility] 1/> AREAS INC INC ULTRASOUN D EA 15 MIN PSYCHOLOG 40482 PHYSICIAN TREVOR BLOUNT 9 S KP Bernal TESTING SERVICES ADMN BY [facility] TECH ME HR NRV CNDJ 69354 SIENNA EL, AMPLT&LAT 9 KP [facility] ENCY EA NRV MOTOR W/F-WAVE STD NRV CNDJ 63552 SIENNA EL, AMPLITUDE 9 KP [facility] & LATENCY EACH NERVE SENSORY NDL EMG 1 34795 SIENNA EL, XTR W/WO 9 KP [facility] RELATED PARASPINA L AREAS MRI 77983 CASEY C TERESA, SPINAL 9 TERESA CASEY CANAL LUMBAR W/O CONTRAST MATERIAL ECHO 45915 [facility] R-T 9 PHYSICIAN VALERIE Iglesias S GROUP W/WOM-MOD E COMPL SPEC&COLR D 3D 48884 CASEY C TERESA, RENDERING 9 TERESA CASEY W/INTERP & POSTPROCE SS SUPERVISI ON RHEUMATOI 96701 RADHA GARCIA D FACTOR 9 [facility] QUANTITAT INC INC ANIYAH PROTEIN 18424 RADHA GARCIA ELECTROPH 9 [facility] ORETIC INC INC FRACTJ&QU ANTJ SERUM COMPREHEN 70536 RADHA GARCIA SIVE 9 [facility] METABOLIC INC INC PANEL SYPHILIS 70776 RADHA GARCIA TEST 9 [facility] NON-TREPO INC INC NEMAL ANTIBODY QUAL BLOOD 47711 RADHA GARCIA COUNT 9 [facility] COMPLETE INC INC AUTO&AUTO DIFRNTL WBC HEMOGLOBI 52138 RADHA GARCIA N 9 [facility] GLYCOSYLA INC INC ANGELA A1C CYANOCOBA 32730 RADHA RADHA JAKOB 9 [facility] VITAMIN INC INC B-12 [place] [address] RADHA GARCIA FOLIC 9 [facility] [place] [address] RADHA GARCIA THYROID 9 [facility] STIMULATI [place] [address] RADHA GARCIA THYROXINE 9 [facility] TOTAL INC INC RADIOLOGI 91212 RADHA RADHA C EXAM 9 [facility] CHEST 2 INC INC VIEWS FRONTAL&L ATERAL BLOOD 77410 RADHA GARCIA COUNT 9 [facility] COMPLETE INC INC AUTO&AUTO DIFRNTL WBC COMPREHEN 54229 RADHA THOMASON SIVE 9 [facility] METABOLIC INC INC PANEL THERAPEUT 22726 RADHA GARCIA IC 9 [facility] PROPHYLAC INC INC TIC/DX INJECTION SUBQ/IM C-REACTIV 62221 RADHA GARCIA E PROTEIN 9 [facility] [place] [address] [facility] ANALI KOHLER, ABDOMEN 9 RADIOLOGY J W/O CONTRAST MATERIAL CT PELVIS 77285 [facility] [place] JOSE F, W/O 9 [place] [address] RADHA GARCIA AMYLASE 9 [facility] INC INC URINE 27253 RADHA GARCIA 9 [facility] TEST INC INC VISUAL COLOR CMPRSN METHS URNLS DIP 41167 RADHA GARCIA 9 [facility] STICK/TAB INC INC LET REAGENT AUTO MICROSCOP Y BLOOD 67459 RADHA GARCIA COUNT 9 [facility] COMPLETE INC INC AUTO&AUTO DIFRNTL WBC RADEX 55284 RADHA GARCIA ABDOMEN 9 [facility] COMPL INC INC W/DCBTS&/ ERC VIEWS COMPREHEN 84089 RADHA GARCIA SIVE 9 [facility] METABOLIC INC INC PANEL CYANOCOBA 46183 RADHA GARCIA JAKOB 9 [facility] VITAMIN INC INC B-12 BLOOD 43037 RADHA GARCIA COUNT 9 [facility] COMPLETE INC INC AUTO&AUTO DIFRNTL WBC RADEX 97278 RADHA GARCIA SPINE 9 [facility] SCOLIOS INC INC STUDY W/SUPINE & ERECT STUDY OBSERVATI 18349 SCHULSTAD SCHULSTAD ON CARE 9 , CALEB , CALEB DISCHARGE MANAGEMEN T INITIAL 59137 SCHULSTAD JUANASTAD OBSERVATI 9 , CALEB , CALEB ON CARE/DAY 50 MINUTES RADEX ABD 19400 [facility] ANALI KOH[place], COMPL 9 RADIOLOGY J AQT ABD W/S/E/D VIEWS [address] PELVIS [address] [facility] A[facility] [place], W/O 9 RADI[place] [address] [facility] [place] ABDOMEN 9 RADIOLOGY JUDAH Abdalla W/[place] [address] RADHA GARCIA INFUSION 9 [facility] THERAPY/P INC INC ROPHYLAXI S /DX 1ST TO 1 HR BLOOD 34858 RADHA GARCIA COUNT 9 [facility] COMPLETE INC INC AUTO&AUTO DIFRNTL WBC RADEX 72451 [facility] A[facility]EN 9 [facility] [place] P COMPL IMAGING W/DCBTS&/ ASSOCIATE ERC VIEWS S URNLS DIP 03568 [facility] GARCIA 9 [facility] STICK/TAB INC INC LET REAGENT AUTO MICROSCOP Y COMPREHEN 16309 [facility] G[facility] SIVE 9 [facility] METABOLIC INC INC PANEL 3D 61567 RADHA GARCIA RENDERING 9 [facility] W/INTERP INC INC & [place] [address] [place] HAR[place], HEAD/BRAI 9 [facility] [place] P N W/O IMAGING CONTRAST ASSOCIATE MATERIAL S CT PELVIS 94007 [facility] [place], 9 RADIOLOGY J W/[place] [address] [facility] ANALI [place], ABDOMEN 9 RADIOLOGY J W/[place] [address] [facility] [place] CESAR, ABDOMEN 9 RADIOLOGY LUIS G W/CONTRAS T MATERIAL CT PELVIS [address]8739 [facility] [place] CES[place], 9 RADIOLOGY LUIS G W/CONTRAS T MATERIAL RADEX 59384 SHARON TERESA, SPINE 8 MED[facility] LUMBOSACR IMAGING AL ASSOCIATE MINIMUM 4 [place] [address] RADHA GARCIA TRACT UPR 8 [facility] W/SM INT INC INC W/[place] [address] SHARON TERESA, UPR W/WO 8 [facility] GLUCOSE IMAGING W/SM ASSOCIATE [place] [address] RADHA GARCIA AMYLASE 8 [facility] INC INC URNLS DIP 12837 RAD[facility] GARCIA 8 [facility] STICK/TAB INC INC [place] [address] RAD[facility] GARCIA THER 8 [facility] PROPH/DX INC INC 1ST >1 HR BLOOD 45375 [facility] GARCIA COUNT 8 [facility] COMPLETE INC INC AUTO&AUTO DIFRNTL WBC AMBULANCE A0429 [facility] SERVICE 8 AMBULANCE AMBULANCE BLS SERVICE SERVICE EMERGENCY TRANSPORT GROUND A0425 [facility] MILEAGE 8 AMBULANCE AMBULANCE [place] [address] RADHA GARCIA LIPASE 8 [facility] INC INC COMPREHEN 78503 RADHA GARCIA SIVE 8 [facility] METABOLIC INC INC PANEL INJECTION J2270 [facility] MORPHINE 8 Y Y SULFATE [facility] [place] [address] [place] [address] [place] DOD[place], ABDOMEN 8 MEDICAL [place]UL[place] W/CONTRAS SERV T FOUNDATIO MATERIAL CT PELVIS 56547 [facility] 8 Y Y W/[facility] T MATERIAL INJECTION J2405 [facility] [place] 1 [place] [address] [facility] INFUSION 8 Y Y HYDRATION [facility] INITIAL 31 MIN-1 HR THER 12285 [facility] PROPH/DX 8 Y Y [facility]X [facility] SEQL IV PUSH SBST/DRUG SUBCUTANE 63738 [facility] OUS 8 Y Y INFUSION [facility] EACH ADDITIONA L IV PUSH RADEX ABD 89268 [facility] COMPL 8 Y Y AQT ABD [facility] W/S/E/D VIEWS 1 VIEW CH URNLS DIP 11613 [facility] 8 Y Y STICK/TAB [facility] LET REAGENT AUTO MICROSCOP Y INJECTION J3010 [facility] FENTANYL 8 Y Y CITRATE [facility] 0.1 MG BLOOD 84417 [facility] COUNT 8 Y Y COMPLETE [facility] AUTOMATED GONADOTRO 45014 [facility] PIN 8 Y Y CHORIONIC [facility] QUALITATI VE THER 81958 [facility] PROPH/DX 8 Y Y NJX IV [facility] PUSH 1ST SBST/DRUG COMPREHEN 23265 [facility] SIVE 8 Y Y METABOLIC [facility] PANEL COLLECTIO 06332 [facility] N VENOUS 8 Y Y BLOOD [facility] VENIPUNCT URE RINGERS J7120 [facility] LACTATE 8 Y Y INFUSION [facility] UP TO 1000 CC COMPREHEN 38680 [facility] GARCIA SIVE 8 [facility] METABOLIC INC INC PANEL BLOOD 02596 [facility] GARCIA COUNT 8 [facility] COMPLETE INC INC AUTO&AUTO DIFRNTL WBC [place] OF 04[address] [facility] LIPASE 8 [facility] [place] 14617 [facility] GARCIA THER 8 [facility] PROPH/DX INC INC 1ST >1 HR RADEX ABD 62534 SHARON MOORE COMPL 8 MEDICAL CASEY AQT ABD IMAGING W/S/E/D ASSOCIATE VIEWS [place] [address] RADHA GARCIA AMYLASE 8 [place] [address] RADHA GARCIA AMYLASE 8 [facility] INC INC RADEX ABD 56106 RAD[facility] GARCIA COMPL 8 [facility] AQT ABD INC INC W/S/E/D VIEWS 1 VIEW CH URNLS DIP 77341 [facility] GARCIA 8 [facility] STICK/TAB INC INC LET REAGENT AUTO MICROSCOP Y BILIRUBIN 67167 RAD[facility] GARCIA DIRECT 8 [facility] INC INC BLOOD 01104 [facility] GARCIA COUNT 8 [facility] COMPLETE INC INC AUTO&[place] [address] RAD[facility]ARCIA LIPASE 8 [facility] INC INC COMPREHEN 69735 RAD[facility] GARCIA SIVE 8 [facility] [place] [address] RADHA GARCIA ABDOMEN 8 [facility] W/CONTRAS INC INC T MATERIAL 3D 95955 RAD[facility] GARCIA RENDERING 8 [facility] INC INC W/INTERP& POSTPROC DIFF WORK STATION CT PELVIS 30182 [place] HARLEEN 8 MEDICAL SHELD[place] P W/CONTRAS IMAGING T ASSOCIATE MATERIAL S BLOOD 07583 [facility] GARCIA COUNT 8 [facility] COMPLETE INC INC AUTO&AUTO DIFRNTL WBC C-REACTIV 84439 RADHA GARCIA E PROTEIN 8 [facility] HIGH INC INC SENSITIVI TY BLOOD 73929 [facility] GARCIA COUNT 8 [facility] COMPLETE INC INC AUTO&AUTO DIFRNTL WBC BASIC 83523 RAD[facility] GARCIA METABOLIC 8 [facility] PANEL INC INC CALCIUM TOTAL CYANOCOBA 92396 [facility]IA JAKOB 8 [facility] VITAMIN INC INC B-12 RADIOLOGI 27175 RADHA GARCIA C EXAM 8 [facility] CHEST 2 INC INC VIEWS FRONTAL&L ATERAL IAADI 01283 RADHA GARCIA INFLUENZA 8 [facility] B VIRUS INC INC IAADI 57903 RAD[facility] GARCIA INFFLUENZ 8 [facility] [place] [address] RAD[facility] GARCIA LIPASE 8 [facility] INC INC COMPREHEN 28231 [facility] GARCIA SIVE 8 [facility] [place] [address] RADHA [facility]HA THER 8 [facility] PROPH/DX INC INC 1ST >1 [place] [address] RADHA GARCIA AMYLASE 8 [facility] INC INC RADEX ABD 00362 [facility] HARLE[facility], COMPL 8 MEDICAL [place] P AQT ABD IMAGING W/S/E/D ASSOCIATE VIEWS 1 S VIEW CH CULTURE 12112 [facility] GARCIA BACTERIAL 8 [facility] INC INC QUANTTATI VE COLONY COUNT URINE URNLS DIP 78029 [facility] GARCIA 8 [facility] STICK/TAB INC INC LET REAGENT AUTO MICROSCOP Y BLOOD 17233 [facility] GARCIA COUNT 8 [facility] COMPLETE INC INC AUTO&AUTO DIFRNTL WBC RADEX 29458 [place] TER[place], SPINE 8 MEDICAL CASEY CERVICAL IMAGING 6 OR MORE ASSOCIATE VIEWS S RADEX 51076 [place] TER[place], SPINE 8 MEDICAL CASEY THORACIC IMAGING 3 VIEWS ASSOCIATE S RADIOLOGI 49376 [facility] EX[facility] 8 [facility] CASEY CHEST 2 IMAGING VIEWS ASSOCIATE FRONTAL&L S ATERAL URNLS DIP 47958 [facility] GARCIA 8 [facility] STICK/TAB INC INC LET REAGENT AUTO MICROSCOP Y CT PELVIS 60847 [place] TER[place], W/O 8 MEDICAL CASEY CONTRAST [place] [address] RAD[facility] GARCIA AMYLASE 8 [facility] INC INC RADEX 26712 [place], SMALL 8 MEDICAL CASEY INTESTINE IMAGING ASSOCIATE W/[place] [address] [place], ABDOMEN 8 MEDICAL CASEY W/O IMAGING CONTRAST ASSOCIATE MATERIAL S 3D 69016 [place], RENDERING 8 MEDICAL CASEY IMAGING W/INTERP& ASSOCIATE [place] [address] RAD[facility] GARCIA LIPASE 8 [facility] INC INC BLOOD 59523 RADHA GARCIA COUNT 8 [facility] COMPLETE INC INC AUTO&AUTO DIFRNTL WBC COMPREHEN 25470 [facility] GARCIA SIVE 8 [facility] [place] L[place] [address] PATHOLOGY PATHOLOGY SURG 8 & & PATHOLOGY CYTOLOGY CYTOLOGY LAB LAB GROSS&ISAAC ROSCOPIC EXAM CLOSED 4525 RADHA GARCIA [ENDOSCOP 8 [facility] IC] INC INC BIOPSY OF LARGE INTESTINE COLONOSCO 87755 RAD[facility] GARCIA PY 8 [facility] W/BIOPSY INC INC SINGLE/MU LTIPLE ANES 93515 COMMUNITY GAN, LOWER 8 ANESTH REY F INTESTINE OF [facility] [place] [address] RAD[facility] GARCIA THER 8 [facility] PROPH/DX INC INC 1ST >1 HR Encounters Encounter Start End Date Code Location Performer Type Date HOSPITAL [facility] - 7 7 [facility]16 [facility] INC MINUTES EMERGENCY 02858 SHAILESH ANDINO 7 7 EMERGENCY DEPARTMEN T VISIT PHYSICIAN HIGH/URGE S NT SEVERITY EMERGENCY 82543 RADHA 7 7 [facility] DEPARTMEN INC T VISIT LOW/MODER SEVERITY HOSPITAL RAD[facility] - 7 7 [facility] OUTPATIEN INC T EMERGENCY 33509 MILAGROS MULTANI 7 7 PHYSICIAN JR DEPARTMEN S, [facility] T VISIT MODERATE SEVERITY HOSPITAL [facility] - 7 7 [facility] OUT[facility] HOSPITALS EMERGENCY 64914 [facility] [place] DEPARTMEN PHYSICIAN T VISIT S MODERATE SEVERITY EMERGENCY 94187 7 7 [facility] DEPARTMEN E T VISIT HOSPITALS LOW/MODER SEVERITY OFFICE 32166 MCDANIELS OUTPATIEN 7 7 [facility] T VISIT 15 PHYSICIAN MINUTES S OFFICE 59211 ANGELOUBEN OUTPATI 7 7 [facility] T VISIT 10 PHYSICIAN MINUTES S HOSPITAL [facility] - 7 7 [facility] OUTPATIEN E T HOSPITALS EMERGENCY 02067 ANALI BYERS 7 7 MEDICAL DEPARTMEN SERV T VISIT FOUNDATIO HIGH/URGE N NT SEVERITY EMERGENCY 50523 ANALI YOUNG 7 7 MEDICAL DEPARTMEN SERV T VISIT FOUNDATIO LIMITED/M N INOR PROB OFFICE 11487 MCDANIELS OUTPATIEN 7 7 [facility] T VISIT 25 PHYSICIAN MINUTES S OFFICE [address] ST JESSICA OUTPATIEN 7 7 [facility] T VISIT 25 PHYSICIAN MINUTES S EMERGENCY 88157 [facility] CHRISTIAN DEPT 7 7 EMERGENCY VISIT HIGH PHYSICIAN SEVERITY& S [facility] EMERGENCY 81911 [facility] ADERS 7 7 EMERGENCY DEPARTMEN T VISIT PHYSICIAN HIGH/URGE S NT SEVERITY EMERGENCY 06161 [facility] KRYSTYNAIER DEPT 7 7 EMERGENCY VISIT HIGH PHYSICIAN SEVERITY& S [facility]AT [facility] EMERGENCY 03355 [facility] MEGHA DEPT 7 7 EMERGENCY VISIT HIGH PHYSICIAN SEVERITY& S THREAT [facility] 7 7 [facility] OUTPATIEN [facility] OFFICE 93650 [facility] 7 7 [facility] T VISIT 25 PHYSICIAN MINUTES [facility] - 7 7 [facility] OUTPATIEN 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 OFFICE [address]60 ST JESSICA ZAH CONSULTAT 6 6 [facility] SAMUELS NEW/ESTAB PHYSICIAN PATIENT S 60 MIN OFFICE 61017 RAHEEL CONSULTAT 6 6 [facility] BRIZUELA ION NEW/ESTAB PHYSICIAN PATIENT S 60 MIN EMERGENCY 01545 SHAILESH FAN-M DEPT 6 6 EMERGENCY AXWELL VISIT REJI HIGH PHYSICIAN SEVERITY& S THREAT [facility] RADHA - 6 6 [facility] OUTPATIEN [facility] T HOSPITAL RADHA - 6 6 [facility] OUTPATIEN [facility] T EMERGENCY 43031 MILAGROS SWEENEY 6 6 PHYSICIAN SAMM [place] [facility] T VISIT HIGH/URGE NT SEVERITY EMERGENCY 57227 RADHA 6 6 [facility] T VISIT LOW/MODER SEVERITY OFFICE 26484 [facility] ALVAR[facility] 6 6 PHYSICIAN T NEW 20 GROUP MINUTES EMERGENCY 66785 RADHA 6 6 [facility] T VISIT HIGH/URGE NT SEVERITY HOSPITAL RADHA - 6 6 [facility] OUTPATIEN [facility] RADHA - 6 6 [facility] OUTPATIEN [facility] T OFFICE 26317 [facility] ALVARAD[facility] 6 6 PHYSICIAN STONE T VISIT S GROUP PA-C MUKUND 25 MINUTES HOSPITAL RADHA - 6 6 [facility] OUTPATIEN [facility] T HOSPITAL RADHA - 6 6 [facility] OUTPATIEN [facility] T EMERGENCY 15697 RADHA 6 6 [facility] T VISIT LIMITED/M INOR PROB EMERGENCY 85651 MILAGROS STEWART 6 6 PHYSICIAN IVET Owen [facility] T VISIT MODERATE SEVERITY EMERGENCY 24013 RADHA 6 6 [facility] T VISIT LOW/MODER SEVERITY EMERGENCY 06967 MILAGROS HERNANDEZ 6 6 PHYSICIAN DEPARTMEN S, [facility] T VISIT HIGH/URGE NT SEVERITY HOSPITAL ARDHA - 6 6 [facility] OUTPATIEN [facility] T OFFICE 97068 [facility] 6 6 PHYSICIAN T VISIT S GROUP 10 MINUTES OFFICE 78379 [facility] D[facility]N OUTPAT[facility] 6 6 PHYSICIAN STONE T VISIT S GROUP ZUHAIR DUVAL 10 MINUTES HOSPITAL RADHA - 6 6 [facility]PATIEN [facility] T EMERGENCY 20527 MILAGROS ESCUDERO 6 6 PHYSICIAN [facility] DEPARTMEN S, PLLC T VISIT MODERATE SEVERITY EMERGENCY 70074 RADHA 6 6 [facility] T VISIT LOW/MODER SEVERITY HOSPITAL RADHA - 6 6 [facility] OUTPATIEN [facility] RADHA - 6 6 [facility] OUTPATIEN [facility] T EMERGENCY 44646 MILAGROS HERRERA 6 6 PHYSICIAN DEPARTMEN S, [facility] T VISIT MODERATE SEVERITY EMERGENCY 98826 RADHA 6 6 [facility] T VISIT LIMITED/M INOR PROB HOSPITAL RADHA - 6 6 [facility] OUTPATIEN [facility] T EMERGENCY 28850 RADHA 6 6 [facility] T VISIT LOW/MODER SEVERITY EMERGENCY 39809 MILAGROS ESCUDERO 6 6 PHYSICIAN [facility], [facility] T VISIT MODERATE SEVERITY HOSPITAL RADHA - 6 6 [facility] OUTPATIEN [facility] RADHA - 6 6 [facility] RADHA - 5 5 [facility] RADHA - 5 5 [facility] OUTPATIEN [facility] T OFFICE 27422 ANALI LOCO [facility] 5 5 MEDICAL KERLINE T VISIT SERV 25 FOUNDATIO MINUTES N EMERGENCY 02942 RADHA 5 5 [facility] DEPARTMEN INC T VISIT LOW/MODER SEVERITY HOSPITAL RADHA - 5 5 [facility] OUTPATIEN INC T EMERGENCY 85653 MILAGROS ESCUDERO DEPT 5 5 PHYSICIAN ISAAC VISIT S, [facility] HIGH SEVERITY& THREAT FUNCJ EMERGENCY 64813 RADHA 5 5 [facility] DEPARTMEN INC T VISIT HIGH/URGE NT SEVERITY HOSPITAL RADHA - 5 5 [facility] OUTPATIEN INC T EMERGENCY 41989 MILAGROS MULTANI DEPT 5 5 PHYSICIAN JR CRESPOZ VISIT S, [facility] HIGH SEVERITY& THREAT FUNJ OFFICE 06484 [facility] OUTPATIEN 5 5 PHYSICIAN ISAAC T VISIT S GROUP 10 MINUTES EMERGENCY 52830 RADHA 5 5 [facility] DEPARTMEN INC T VISIT LOW/MODER SEVERITY HOSPITAL RADHA - 5 5 [facility] OUTPATIEN INC T EMERGENCY 85031 MILAGROS ESCUDERO 5 5 PHYSICIAN ISAAC DEPARTMEN S, [facility] T VISIT MODERATE SEVERITY OFFICE 95569 [facility] OUTPATIEN 5 5 PHYSICIAN ISAAC T VISIT S GROUP 25 MINUTES EMERGENCY 63286 MILAGROS ESCALANTE 5 5 PHYSICIAN KETAN DEPARTMEN S, [facility] T VISIT MODERATE SEVERITY OFFICE 47043 [facility] OUTPATIEN 5 5 PHYSICIAN ISAAC T VISIT S GROUP 15 MINUTES HOSPITAL RADHA - 5 5 [facility] OUTPATIEN INC T EMERGENCY 48366 AREN HERRERA 5 5 DEPARTMEN T VISIT HIGH/URGE NT SEVERITY EMERGENCY 79321 SUSHILA Abdalla 5 5 DEPARTMEN T VISIT MODERATE SEVERITY OFFICE 89971 [facility] OUTPATIEN 5 5 PHYSICIAN ISAAC T VISIT S GROUP 25 MINUTES HOSPITAL RADHA - 5 5 [facility] OUTPATIEN INC T EMERGENCY 77766 [facility]EN [facility]ER [facility] 5 5 [facility] T VISIT HIGH/URGE NT SEVERITY EMERGENCY 58582 YEIMI MULLEREY 5 5 ISAAC ISAAC [facility] T VISIT MODERATE SEVERITY OFFICE 11966 ANALI [place] ANT OUTPATIEN 5 5 MEDICAL T VISIT SERV 25 FOUNDATIO MINUTES HOSPITAL RADHA - 5 5 [facility] OUTPATIEN INC T OFFICE 71697 [facility] 5 5 PHYSICIAN T VISIT S GROUP 15 MINUTES HOSPITAL RADHA - 5 5 [facility] OUTPAT[facility] INC T OFFICE 85848 [facility] YEIMI OUTPATIEN 5 5 PHYSICIAN ISAAC T VISIT S GROUP 15 MINUTES OFFICE 07567 [facility] YEIMI OUTPATIEN 5 5 PHYSICIAN ISAAC T VISIT S GROUP 15 MINUTES HOSPITAL RADHA - 5 5 [facility] OUTPATIEN INC T HOSPITAL RADHA - 4 4 [facility] OUTPATIEN INC T EMERGENCY 26206 RADHA GUSMAN 4 4 [facility] T VISIT P LOW/MODER SEVERITY EMERGENCY 62359 RADHA JEAN BAPTISTE 4 4 [facility] T VISIT P HIGH/URGE NT SEVERITY EMERGENCY 03111 RADHA DE JESUS 4 4 [facility] T VISIT P HIGH/URGE NT SEVERITY EMERGENCY 62748 RADHA 4 4 [facility] T VISIT HIGH/URGE NT SEVERITY HOSPITAL RADHA [place] 4 [facility] OUTPATIEN INC T EMERGENCY 06637 RADHA GUSMAN 4 4 [facility] T VISIT P LOW/MODER SEVERITY HOSPITAL RADHA - 4 4 [facility] OUTPATIEN INC T EMERGENCY [address] [facility] DEPARTMEN T VISIT HIGH/URGE NT SEVERITY OFFICE 10032 [place] [facility] OUTPATIEN [address] T VISIT SERV 25 FOUNDATIO MINUTES HOSPITAL [facility] - 4 4 [facility] T EMERGENCY 73939 MARLI HORNE DEPT 4 4 VISIT HIGH SEVERITY& THREAT [facility] RADHA - 4 4 [facility] OUTPATIEN INC T OFFICE 93522 ANALI [place] ANT OUTPATIEN 4 4 MEDICAL T VISIT SERV 15 FOUNDATIO MINUTES N OFFICE 56618 [facility] OUTPATIEN 4 4 PHYSICIAN ISAAC T NEW 30 S GROUP [facility] RADHA - 4 4 [facility] OUTPATIEN INC T EMERGENCY 61915 [facility] DEPT [address] [facility] VISIT HIGH SEVERITY& THREAT FUNCJ EMERGENCY 93933 [facility] DEPT [address] [facility] VISIT HIGH SEVERITY& THREAT FUNCJ EMERGENCY 00236 [facility] 4 4 [facility] T VISIT HIGH/URGE NT SEVERITY EMERGENCY 12857 [facility] [address] [address] [facility] DEPARTMEN T VISIT HIGH/URGE NT SEVERITY EMERGENCY 12411 ALFARIS ALFARIS 4 4 [facility] DEPARTMEN T VISIT HIGH/URGE NT SEVERITY EMERGENCY 59007 KIT KIT 4 4 IMT IMT DEPARTMEN T VISIT MODERATE SEVERITY EMERGENCY 17766 YEIMI ESCUDERO 4 4 ISAAC ISAAC DEPARTMEN T VISIT MODERATE SEVERITY EMERGENCY 94186 YEIMI ESCUDERO DEPT 4 4 ISAAC ISAAC VISIT HIGH SEVERITY& THREAT FUNCJ EMERGENCY 10182 [facility] 4 4 CONRAD KILO DEPARTMEN EMERGENCY T VISIT PHYS HIGH/URGE NT SEVERITY EMERGENCY 76652 [facility] 4 4 CONRAD III JUAN ANTONIO DEPARTMEN EMERGENCY T VISIT PHYS MODERATE SEVERITY OFFICE 39449 RIGOBERTO ALVARADO 4 4 LEE ANN LEE ANN T VISIT 15 MINUTES Emergency LIZETTE Mendoza MD (ER) 4 20:36 4 22:44 [facility] EMERGENCY 88875 MARLI RAPP DEPT 4 4 VISIT HIGH SEVERITY& THREAT FUNJ Emergency LIZETTE MCNAMARA MD (ER) 4 18:43 4 20:06 [facility] EMERGENCY 16143 [place] [facility] 4 4 [facility] DEPARTMEN T VISIT HIGH/URGE NT SEVERITY OFFICE 93595 YARA ANT YARA ANT SHAQUILLEPATIBROOKE 3 3 T VISIT 15 MINUTES OFFICE 45628 RIGOBERTO ALVARADO 3 3 LEE ANN LEE ANN T VISIT 15 MINUTES Emergency LIZETTE Escudero MD (ER) 3 17:45 3 18:59 [facility] EMERGENCY 08672 YEIMI ESCUDERO 3 3 ISAAC ISAAC DEPARTMEN T VISIT MODERATE SEVERITY Emergency LIZETTE Mendoza MD (ER) 3 16:38 3 17:11 [facility] EMERGENCY 57686 MARLI RAPP 3 3 DEPARTMEN T VISIT MODERATE SEVERITY Emergency LIZETTE Escudero MD (ER) 3 20:44 3 21:15 [facility] OFFICE 33659 RIGOBERTO ALVARADO 3 3 LEE ANN LEE ANN T VISIT 15 MINUTES Emergency LIZETTE Mendoza MD (ER) 3 14:40 3 16:39 [facility] EMERGENCY 52203 LIAM RAPP 3 3 EMERGENCY DEPARTMEN SERVICES T VISIT HIGH/URGE NT SEVERITY HOSPITAL [facility]ERSIT - 3 3 [facility] Emergency LIZETTE DIEZ (ER) 3 16:51 3 18:46 [facility] EMERGENCY 25466 CHARY DIEZ 3 3 JAM JAM DEPARTMEN T VISIT HIGH/URGE NT SEVERITY EMERGENCY 09674 RADHA 3 3 [facility] DEPARTMEN INC T VISIT LOW/MODER SEVERITY HOSPITAL RADHA - 3 3 [facility] OUTPATIEN INC T Emergency LIZETTE Escudero MD (ER) 3 21:28 3 22:25 [facility] EMERGENCY 03030 RADHA 3 3 [facility] DEPARTMEN INC T VISIT LOW/MODER SEVERITY EMERGENCY 93097 YEIMI ESCUDERO DEPT 3 3 [facility] ISAAC VISIT HIGH SEVERITY& THREAT [facility] RADHA - 3 3 [facility] OUTPATIEN INC T Emergency LIZETTE DIEZ (ER) 3 14:18 3 16:42 Galdino MAYORGA [facility] RADHA - 3 3 [facility] OUTPATIEN INC T EMERGENCY 13284 RADHA 3 3 [facility] DEPARTMEN INC T VISIT LOW/MODER SEVERITY EMERGENCY 11480 CHARY DIEZ 3 3 JAM JAM DEPARTMEN T VISIT HIGH/URGE NT SEVERITY Emergency LIZETTE Escudero MD (ER) 3 21:00 3 22:57 [facility] RADHA - 3 3 [facility] OUTPATIEN INC T EMERGENCY 64694 RADHA 3 3 [facility] DEPARTMEN INC T VISIT MODERATE SEVERITY EMERGENCY 47146 YEIMI ESCUDERO 3 3 ISAAC ISAAC DEPARTMEN T VISIT HIGH/URGE NT SEVERITY HOSPITAL RADHA - 3 3 [facility] INPATIENT [facility] HOSPITAL RADHA - 3 3 [facility] OUTPATIEN [facility] OFFICE 35376 WENDY NGUYEN CONSULTAT 3 3 BOONE SAMUELS NEW/ESTAB PATIENT 60 MIN EMERGENCY 44946 RADHA 3 3 [facility] T VISIT MODERATE SEVERITY EMERGENCY 49925 MICHAEL RODRIGUEZ DEPT 3 3 III JUAN ANTONIO III JUAN ANTONIO VISIT HIGH SEVERITY& THREAT [facility] RADHA - 3 3 [facility] OUTPATIEN [facility] OFFICE 44946 YARA ANT YARA ANT OUTPATIEN 3 3 T VISIT 15 MINUTES EMERGENCY 69245 RADHA 2 2 [facility] T VISIT HIGH/URGE NT SEVERITY EMERGENCY 44037 LIAM RAPP DEPT 2 2 EMERGENCY VISIT SERVICES HIGH SEVERITY& THREAT [facility] RADHA - 2 2 [facility] OUTPATIEN [facility] OFFICE 04475 RIGOBERTO FRANKLIN OUTPATIEN 2 2 LEE ANN [facility] T VISIT 15 MINUTES OFFICE 79997 YARA ANT YARA ANT OUTPATIEN 2 2 T VISIT 25 MINUTES HOSPITAL RADHA - 2 2 [facility] OUTPATIEN [facility] HOSPITAL RADHA - 2 2 [facility] OUTPATIEN [facility] EMERGENCY 81629 RAD[facility] 2 2 [facility] T VISIT MODERATE SEVERITY EMERGENCY 03164 YEIMI ESCUDERO 2 2 [facility] T VISIT HIGH/URGE NT SEVERITY HOSPITAL RADHA - 2 2 [facility] OUTPATIEN [facility] EMERGENCY 35242 YEIMI ESCUDERO 2 2 [facility] T VISIT HIGH/URGE NT SEVERITY EMERGENCY 28961 RAD[facility] 2 2 [facility] DEPARTMEN INC T VISIT LOW/MODER SEVERITY HOSPITAL RADHA - 2 2 [facility] OUTPATIEN INC T HOSPITAL RADHA - 2 2 [facility] OUTPATIEN INC T OFFICE 82339 YARA [place] ANT OUTPATIEN 2 2 T VISIT 25 MINUTES HOSPITAL RADHA - 2 2 [facility] OUTPATIEN INC T HOSPITAL RADHA - 2 2 [facility] OUTPATIEN [facility] T EMERGENCY 47887 RADHA 2 2 [facility] DEPARTMEN INC T VISIT HIGH/URGE NT SEVERITY EMERGENCY 31336 RAD[facility] 2 2 [facility] DEPARTMEN INC T VISIT HIGH/URGE NT SEVERITY EMERGENCY 85128 MICHAEL RODRIGUEZ DEPT 2 2 III JUAN ANTONIO III JUAN ANTONIO VISIT HIGH SEVERITY& THREAT FUN HOSPITAL RADHA - 2 2 [facility] OUTPATIEN [facility] T EMERGENCY 13624 LIAM ESCUDERO DEPT 2 2 EMERGENCY ISAAC VISIT SERVICES HIGH SEVERITY& THREAT FUNCJ EMERGENCY 68427 RADHA 2 2 [facility] DEPARTMEN INC T VISIT MODERATE SEVERITY HOSPITAL [facility] - 2 2 [facility] OUTPATIEN [facility] T OFFICE 92221 RIGOBERTO FRANKLIN OUTPATIEN 2 2 LEE ANN LEE ANN T VISIT 15 MINUTES EMERGENCY 71308 LIAM ESCUDERO 2 2 EMERGENCY [facility] DEPARTMEN SERVICES T VISIT HIGH/URGE NT SEVERITY HOSPITAL RAD[facility] - 2 2 [facility] OUTPATIEN [facility] T EMERGENCY 09481 [facility] 2 2 [facility] DEPART[facility] INC T VISIT MODERATE SEVERITY EMERGENCY 24423 RAD[facility] 2 2 [facility] DEPARTMEN INC T VISIT LIMITED/M INOR PROB EMERGENCY 37010 LIAM ESCUDERO 2 2 EMERGENCY [facility] SERVICES T VISIT HIGH/URGE NT SEVERITY HOSPITAL RAD[facility] - 2 2 [facility] OUTPATIEN INC T EMERGENCY 48643 RADHA 2 2 [facility] DEPARTMEN INC T VISIT MODERATE SEVERITY HOSPITAL RAD[facility] - 2 2 [facility] OUTPATIEN [facility] T EMERGENCY 62445 LIAM ESCUDERO 2 2 EMERGENCY [facility] SERVICES T VISIT HIGH/URGE NT SEVERITY OFFICE 93706 ABHINAVEFRAIN RIGOBERTO OUTPATIEN 2 2 LEE ANN LEE ANN T VISIT 15 MINUTES EMERGENCY 70002 [facility] 2 [facility] T VISIT LOW/MODER SEVERITY EMERGENCY 45395 LIAM RODRIGUEZ 2 2 EMERGENCY III [facility] SERVICES T VISIT HIGH/URGE NT SEVERITY HOSPITAL RAD[facility] - 2 2 [facility] OUTPATIEN [facility] T OFFICE 63758 ABHINAVEFRAIN RIGOBERTO OUTPATIEN 2 2 LEE ANN LEE ANN T VISIT 15 MINUTES HOSPITAL [facility] - 2 2 [facility] OUTPATIEN [facility] T HOSPITAL RAD[facility] - 1 1 [facility] OUTPATIEN [facility] T EMERGENCY 67371 RADHA 1 1 [facility]IGH/URGE NT SEVERITY EMERGENCY 06598 MICHAEL RODRIGUEZ DEPT 1 1 III JUAN ANTONIO III JUAN ANTONIO VISIT HIGH SEVERITY& THREAT [facility] OFFICE 09003 YARA [place] ANT OUTPATIEN 1 1 T VISIT 25 MINUTES HOSPITAL [facility] - 1 1 [facility] OUTPATIEN INC T EMERGENCY 62880 RAD[facility] 1 1 [facility] DEPARTMEN INC T VISIT HIGH/URGE NT SEVERITY EMERGENCY 10003 LIAM SPRAGUE DEPT 1 1 EMERGENCY VISIT SERVICES HIGH SEVERITY& THREAT [facility] - [facility] 1 [facility] INC T OFFICE 30700 RIGOBERTO FRANKLIN OUTPATIEN 1 1 LEE ANN LEE ANN T VISIT 15 MINUTES [facility]OSPITAL [facility] - 1 1 [facility] INC T EMERGENCY 54097 LIAM TRINH 1 1 EMERGENCY DEPARTMEN SERVICES T VISIT HIGH/URGE NT SEVERITY EMERGENCY 03907 [facility] 1 1 [facility] DEPART[facility] INC T VISIT LOW/MODER SEVERITY [facility] - 1 1 [facility] OUTPAT[facility] INC T EMERGENCY 04970 [facility] 1 1 [facility] DEPARTMEN INC T VISIT LOW/MODER SEVERITY EMERGENCY 63003 LIAM ESCUDERO 1 1 EMERGENCY [facility] DEPARTMEN SERVICES T VISIT HIGH/URGE NT SEVERITY [facility]OSP[facility] - 1 1 [facility] OUT[facility] INC T EMERGENCY 30927 [facility] 1 1 [facility] DEPARTMEN INC T VISIT MODERATE SEVERITY [facility] - 1 1 [facility] INC T EMERGENCY 53790 LIAM SPRAGUE 1 1 EMERGENCY DEPARTMEN SERVICES T VISIT HIGH/URGE NT SEVERITY [facility]OSPITAL [facility] - 1 1 [facility] INC T OFFICE 60474 ANALI TO OUTPATIEN 1 1 MEDICAL T VISIT SERV 25 FOUNDATIO MINUTES [facility]OSPITAL [facility] - 1 1 [facility] OUT[facility] INC T EMERGENCY 85654 LIAM RODRIGUEZ DEPT 1 1 EMERGENCY III JUAN ANTONIO VISIT SERVICES HIGH SEVERITY& THREAT FUNJ EMERGENCY 63628 [facility] 1 1 [facility] DEPARTMEN INC T VISIT HIGH/URGE NT SEVERITY [facility]OSPITAL [facility] - 1 1 [facility] OUTPATI[facility] INC T EMERGENCY 66234 [facility] 1 1 [facility] DEPARTMEN INC T VISIT HIGH/URGE NT SEVERITY EMERGENCY 55238 LIAM ESCUDERO DEPT 1 1 EMERGENCY [facility] VISIT SERVICES HIGH SEVERITY& THREAT FUNCJ EMERGENCY 75555 LIAM [facility] 1 1 EMERGENCY DEPARTMEN SERVICES T VISIT HIGH/URGE NT SEVERITY [facility]OSP[facility] T EMERGENCY 95969 [facility] 1 1 [facility] T VISIT MODERATE SEVERITY OFFICE 24654 ABHINAVEFRAIN RIGOBERTO ALVARADO 1 1 LEE ANN LEE ANN T VISIT 15 MINUTES OFFICE 59062 ABHINAVEFRAIN RIGOBERTO ALVARADO 1 1 LEE ANN LEE ANN T VISIT 15 MINUTES EMERGENCY 28742 LIAM RODRIGUEZ DEPT 1 1 EMERGENCY III JUAN ANTONIO VISIT SERVICES HIGH SEVERITY& THREAT FUNJ EMERGENCY 51373 [facility] 1 1 [facility] T VISIT HIGH/URGE NT SEVERITY [facility]OSPITAL [facility] - [facility] 1 [facility] T OFFICE 87725 RAD[facility] GARCIA OUTPATIEN [address] RAD[facility] - 1 1 [facility] T EMERGENCY 10537 LIAM ESCUDERO DEPT 1 1 EMERGENCY ISAAC VISIT SERVICES HIGH SEVERITY& THREAT [facility] - 1 1 [facility]EN INC T EMERGENCY 52453 [facility] 1 1 [facility] DEPARTMEN INC T VISIT LOW/MODER SEVERITY OFFICE 49375 ANALI TO OUTPATIEN 0 0 MEDICAL T VISIT SERV 25 FOUNDATIO MINUTES EMERGENCY 83618 LIAM ESCUDERO 0 0 EMERGENCY ISAAC DEPARTMEN SERVICES T VISIT HIGH/URGE NT SEVERITY OFFICE 90734 RIGOBERTO FRANKLIN OUTPATIEN 0 0 LEE ANN LEE ANN T VISIT 15 MINUTES OFFICE 84733 RIGOBERTO FRANKLIN OUTPATIEN 0 0 LEE ANN LEE ANN T VISIT 15 MINUTES HOSPITAL [facility] - 0 0 [facility] INC T EMERGENCY 79386 [facility] 0 0 [facility] DEPARTMEN INC T VISIT LIMITED/M INOR PROB EMERGENCY 63056 LIAM ESCUDERO 0 0 EMERGENCY [facility] DEPARTMEN SERVICES T VISIT HIGH/URGE NT SEVERITY OFFICE 69491 RIGOBERTO FRANKLIN OUTPATIEN 0 0 LEE ANN LEE ANN T VISIT 15 MINUTES OFFICE 68665 RIGOBERTO FRANKLIN OUTPATIEN 0 0 LEE ANN LEE ANN T VISIT 15 MINUTES HOSPITAL [facility] - 0 0 [facility] T OFFICE 58773 ANALI [facility] OUT[facility]EN 0 0 MEDICAL T VISIT SERV 25 FOUNDATIO MINUTES EMERGENCY 06142 LIAM ESCUDERO 0 0 EMERGENCY [facility] DEPARTMEN SERVICES T VISIT HIGH/URGE NT SEVERITY HOSPITAL [facility] - 0 0 [facility] OUTPATIEN INC T EMERGENCY 89412 [facility] 0 0 [facility] DEPARTMEN INC T VISIT LIMITED/M INOR PROB EMERGENCY 25941 LIAM ESCUDERO, 0 0 EMERGENCY [facility] DEPARTMEN SERVICES T VISIT HIGH/URGE ASSOCIATE NT S SEVERITY HOSPITAL [facility] - 0 0 [facility]EN INC T EMERGENCY 01800 [facility] 0 0 [facility] DEPARTMEN INC T VISIT LIMITED/M INOR PROB OFFICE 05703 RIGOBERTO FRANKLIN OUTPATIEN 0 0 MAIRA Bernal T VISIT 15 MINUTES OFFICE 34355 RIGOBERTO FRANKLIN OUTPATIEN 0 0 MAIRA Bernal T VISIT 15 MINUTES HOSPITAL [facility] - 0 0 [facility]EN INC T EMERGENCY 91953 LIAM ESCUDERO, 0 0 EMERGENCY SARAH S DEPARTMEN SERVICES T VISIT HIGH/URGE ASSOCIATE NT S SEVERITY EMERGENCY 19950 [facility] 0 0 [facility] DEPARTMEN INC T VISIT LOW/MODER SEVERITY OFFICE 57285 RIGOBERTO FRANKLIN OUTPATIEN 0 0 MAIRA Bernal T VISIT 15 MINUTES OFFICE 21848 JENNY MORALES 0 0 MEDICAL [place] T VISIT SERV 25 FOUNDATIO MINUTES OFFICE 28776 RIGOBERTO FRANKLIN OUTPATIEN 0 0 MAIAR Bernal T VISIT 15 MINUTES HOSPITAL [facility] - 0 0 [facility]PAT[facility]EN INC T EMERGENCY 44303 LIAM RODRIGUEZ DEPT 0 0 EMERGENCY III, VISIT SERVICES REY HIGH SEVERITY& ASSOCIATE THREAT S [facility] RAD[facility] - 0 0 [facility] OUTPAT[facility]EN INC T EMERGENCY 75854 LIAM RODRIGUEZ DEPT 0 0 EMERGENCY III, VISIT SERVICES REY HIGH SEVERITY& ASSOCIATE THREAT S [facility] EMERGENCY 28127 [facility] 0 0 [facility] DEPARTMEN INC T VISIT MODERATE SEVERITY OFFICE 62826 RIGOBERTO FRANKLIN OUTPATIEN 0 0 MAIRA Bernal T VISIT 15 MINUTES HOSPITAL [facility] - 0 0 [facility] OUTPATIEN INC T EMERGENCY 29121 [facility] 0 0 [facility] DEPARTMEN INC T VISIT MODERATE SEVERITY HOSPITAL [facility] - 9 9 [facility] INC T OFFICE 78248 RIGOBERTO FRANKLIN OUTPATIEN 9 9 MAIRA Bernal T VISIT 15 MINUTES OFFICE 03222 JENNY MORALES 9 9 MEDICAL [place] T VISIT SERV 15 FOUNDATIO MINUTES OFFICE 40722 PHYSICIAN JENNY BLOUNT 9 9 Brayden Bernal T NEW 30 SERVICES MINUTES PSC OFFICE 30092 RIGOBERTO FRANKLIN OUTPATIEN 9 9 MAIRA Bernal T VISIT 15 MINUTES EMERGENCY 63045 LIAM ESCUDERO, 9 9 [facility]ISIT MODERATE ASSOCIATE SEVERITY S [facility]OSP[facility] - 9 9 [facility] OUTPATIEN INC T OFFICE 03140 JENNY MORALES 9 9 MEDICAL [place] T VISIT SERV 25 FOUNDATIO MINUTES OFFICE 29510 RIGOBERTO FRANKLIN OUTPATIEN 9 9 MAIRA Bernal T VISIT 15 MINUTES OFFICE 27386 RIGOBERTO FRANKLIN OUTPATIEN 9 9 MAIRA Bernal T VISIT 15 MINUTES HOSPITAL [facility] - 9 9 [facility] OUTPATIEN INC T EMERGENCY 79758 LIAM OAKLEY, 9 9 EMERGENCY [facility] DEPARTMEN SERVICES T VISIT HIGH/URGE ASSOCIATE NT S SEVERITY EMERGENCY 80816 [facility] 9 9 [facility] DEPARTMEN INC T VISIT LIMITED/M INOR PROB HOSPITAL RADHA - 9 9 [facility] OUTPATIEN INC T EMERGENCY 00043 LIAM ESCUDERO, 9 9 [facility] VISIT MODERATE ASSOCIATE SEVERITY S EMERGENCY 99751 [facility] 9 9 [facility] DEPARTMEN INC T VISIT LOW/MODER SEVERITY OFFICE 69624 RIGOBERTO FRANKLIN OUTPATIEN 9 9 MAIRA Bernal T VISIT 15 MINUTES OFFICE 59445 SIENNA EL OUTPATIEN 9 9 [facility] T VISIT 25 MINUTES HOSPITAL [facility] - 9 9 [facility]PAT[facility] INC T OFFICE 37921 RIGOBERTO FRANKLIN OUTPATIEN 9 9 MAIRA Bernal T VISIT 15 MINUTES HOSPITAL [facility] - 9 9 [facility]PATIEN INC T OFFICE 68782 SIENNA EL CONSULTAT 9 9 KP SAMUELS NEW/ESTAB PATIENT 80 MIN OFFICE 62338 JENNY MORALES 9 9 PETRA SIMPSON T VISIT SERV 25 FOUNDATIO MINUTES HOSPITAL [facility] - 9 9 [facility] OUTPATIEN INC T EMERGENCY 73317 LIAM FISHMAN, 9 9 EMERGENCY [facility] DEPARTMEN SERVICES O T VISIT HIGH/URGE ASSOCIATE NT S SEVERITY HOSPITAL RADHA - 9 9 [facility] OUTPATIEN INC T EMERGENCY 16144 [facility] 9 9 [facility] DEPARTMEN INC T VISIT LIMITED/M INOR PROB OFFICE 30770 RIGOBERTO FRANKLIN OUTPATIEN 9 9 MAIRA Bernal T VISIT 15 MINUTES HOSPITAL RAD[facility] - 9 9 [facility] OUTPATIEN INC T EMERGENCY 36168 [facility] 9 9 [facility] DEPARTMEN INC T VISIT LOW/MODER SEVERITY EMERGENCY 74714 LIAM ESCUDERO, 9 9 EMERGENCY SARAH Owen DEPARTMEN SERVICES T VISIT MODERATE ASSOCIATE SEVERITY S OFFICE 33583 RIGOBERTO FRANKLIN OUTPATIEN 9 9 MAIRA Bernal T VISIT [address] [facility], 9 9 [facility] SARAH [facility] T VISIT PHYS INC HIGH/URGE NT SEVERITY EMERGENCY 78422 LIAM CARRION, DEPT 9 9 EMERGENCY PRIYANKA VISIT SERVICES HIGH SEVERITY& ASSOCIATE THREAT S FUNCJ EMERGENCY 43679 [facility] 9 9 [facility] DEPARTMEN INC T VISIT MODERATE SEVERITY [facility]OSPITAL [facility] - 9 9 [facility] OUTPAT[facility]EN INC T OFFICE 24970 RIGOBERTO FRANKLIN OUTPATIEN 9 9 MAIRA Bernal T VISIT 15 MINUTES HOSPITAL [facility] - 9 9 [facility] OUTPATIEN INC T OFFICE 43189 JENNY MORALES 9 9 PETRA SIMPSON T VISIT SERV 25 FOUNDATIO MINUTES OFFICE 99353 RIGOBERTO FRANKLIN OUTPATIEN 9 9 MAIRA Bernal T VISIT 15 MINUTES HOSPITAL [facility] - 9 9 [facility] T [facility] - 9 9 [facility] T EMERGENCY 13695 [facility] 9 9 [facility] DEPARTMEN INC T VISIT LOW/MODER SEVERITY EMERGENCY 58783 LIAM OAKLEY, 9 9 EMERGENCY [facility] DEPARTMEN SERVICES T VISIT MODERATE ASSOCIATE SEVERITY S OFFICE 97161 RIGOBERTO FRANKLIN OUTPATIEN 9 9 MAIRA Bernal T VISIT 15 MINUTES HOSPITAL [facility] - 9 9 [facility] EMERGENCY 94635 [facility], DEPT 9 9 CONRAD Montes [place] VISIT EMERGENCY HIGH PHYS INC SEVERITY& THREAT FUNCJ OFFICE 27948 RIGOBERTO FRANKILN OUTPATIEN 9 9 MAIRA Bernal T VISIT 15 MINUTES EMERGENCY 54533 [facility] 9 9 [facility] DEPARTMEN INC T VISIT LOW/MODER SEVERITY EMERGENCY 48362 LIAM ESCUDERO, 9 9 EMERGENCY [facility] DEPARTMEN SERVICES T VISIT HIGH/URGE ASSOCIATE NT S SEVERITY HOSPITAL [facility] - 9 9 [facility] OUTPATIEN INC T OFFICE 27740 RIGOBERTO FRANKLIN OUTPATIEN 9 9 MAIRA Bernal T VISIT 15 MINUTES EMERGENCY 50522 [facility] 9 9 [facility] DEPARTMEN INC T VISIT HIGH/URGE NT SEVERITY HOSPITAL [facility] - 9 9 [facility] OUTPATIEN INC T EMERGENCY 97937 LIAM OAKLEY DEPT 9 9 EMERGENCY JUDAH P VISIT SERVICES HIGH SEVERITY& ASSOCIATE THREAT S FUNJ OFFICE 22505 RIGOBERTO FRANKLIN OUTPATIEN 9 9 MAIRA Bernal T VISIT 15 MINUTES EMERGENCY 21380 [facility] 9 9 [facility] DEPARTMEN INC T VISIT LOW/MODER SEVERITY HOSPITAL [facility] - 9 9 [facility] OUTPAT[facility]EN INC T EMERGENCY 15274 JOSE ESCUDERO, 9 9 [facility] T VISIT ON HIGH/URGE NT SEVERITY OFFICE 27810 [facility], CONSULTAT [address] [facility] NEW/ESTAB PATIENT [place] 60 MIN [facility] EMERGENCY 06451 MARLEN GERMAN, DEPT 9 9 [place] [place] VISIT EMERGENCY HIGH PHYS INC SEVERITY& THREAT FUNJ OFFICE 72546 RIGOBERTO FRANKLIN OUTPATIEN 9 9 MAIRA Bernal T VISIT 15 MINUTES HOSPITAL RADHA - 9 9 [facility] OUTPATIEN INC T EMERGENCY 32243 JOSE ESCUDERO, 9 9 [facility] T VISIT ON LOW/MODER SEVERITY EMERGENCY 03309 [facility] 9 9 [facility] DEPARTMEN INC T VISIT LIMITED/M INOR PROB OFFICE 58853 RIGOBERTO FRANKLIN OUTPATIEN 9 9 MAIRA Bernal T VISIT 15 MINUTES HOSPITAL [facility] - 9 9 [facility] OUTPATIEN INC T EMERGENCY 18041 [facility] 9 9 [facility] DEPARTMEN INC T VISIT LOW/MODER SEVERITY EMERGENCY 68172 JOSE ESCUDERO, 9 9 [facility] T VISIT ON MODERATE SEVERITY OFFICE 98343 RIGOBERTO FRANKLIN OUTPATIEN 9 9 MAIRA Bernal T VISIT 15 MINUTES EMERGENCY 60410 [facility], DEPT 9 9 CONRAD AMANDA Wolfe VISIT EMERGENCY HIGH PHYS INC SEVERITY& THREAT FUNJ EMERGENCY 21813 JOSE ESCUDERO, 9 9 [facility] T VISIT ON MODERATE SEVERITY EMERGENCY 75165 RADHA 9 9 [facility] DEPARTMEN INC T VISIT LIMITED/M INOR PROB HOSPITAL RAD[facility] - 9 9 [facility] OUTPATIEN INC T OFFICE 83405 RIGOBERTO FRANKLIN OUTPATIEN 8 8 MAIRA RAO W T VISIT 15 MINUTES OFFICE 36643 RIGOBERTO FRANKLIN OUTPATIEN 8 8 MAIRA RAO W T VISIT 15 MINUTES OFFICE 98549 JENNY MORALES 8 8 PETRA SIMPSON T VISIT SERV 15 FOUNDATIO MINUTES HOSPITAL [facility] - 8 8 [facility] OUTPATIEN INC T OFFICE 27893 RIGOBERTO FRANKLIN OUTPATIEN 8 8 MAIRA RAO W T VISIT 15 MINUTES OFFICE 18608 RIGOBERTO FRANKLIN OUTPATIEN 8 8 MAIRA RAO W T VISIT 15 MINUTES OFFICE 16865 WENDY NGUYEN OUTPATIEN 8 8 , CALEB ELLIS T VISIT 15 MINUTES HOSPITAL [facility] - 8 8 [facility] OUTPATIEN INC T OFFICE 30884 JUANASTBUD ARIASSTAD CONSULTAT 8 8 , CALEB ELLIS ION NEW/ESTAB PATIENT 60 MIN OFFICE 60622 RIGOBERTO FRANKLIN OUTPATIEN 8 8 MAIRA Bernal MAIRA W T VISIT 15 MINUTES EMERGENCY 22053 RADHA 8 8 [facility] DEPARTMEN INC T VISIT HIGH/URGE NT SEVERITY HOSPITAL [facility] - 8 8 [facility] OUTPAT[facility] INC T OFFICE 76213 [facility] 8 MEDICAL [place] T VISIT SERV 25 FOUNDATIO MINUTES OFFICE 19926 RIGOBERTO FRANKLIN OUTPATIEN 8 8 MAIRA Bernal T VISIT 15 MINUTES OFFICE 48241 RIGOBERTO FRANKLIN OUTPATIEN 8 8 MAIRA Bernal T VISIT 15 MINUTES HOSPITAL RADHA - 8 8 [facility] OUTPATIEN [facility] T EMERGENCY 02680 RADHA 8 8 [facility] DEPARTMEN [facility] T VISIT LIMITED/M INOR PROB OFFICE 60564 RIGOBERTO FRANKLIN OUTPATIEN 8 8 MAIRA Bernal T VISIT 15 MINUTES OFFICE 10632 JENNY MORALES 8 8 MEDICAL [place] T VISIT SERV 25 FOUNDATIO MINUTES EMERGENCY 26285 UNIVERS[facility] DEPT 8 8 Y VISIT HOSPITAL HIGH SEVERITY& THREAT FUN EMERGENCY 84532 ANALI RYAN, 8 8 [facility] T DEPARTMEN SERV T VISIT FOUNDATIO HIGH/URGE NT SEVERITY HOSPITAL UNIVERS[facility] - 8 8 Y OUTPATI HOSPITAL T OFFICE 52055 RIGOBERTO FRANKLIN OUTPATIEN 8 8 MAIRA Bernal T VISIT 15 MINUTES EMERGENCY 25544 [facility] 8 8 [facility] DEPARTMEN INC T VISIT LIMITED/M INOR PROB HOSPITAL [facility] - 8 8 [facility]EN [facility] T HOSPITAL RAD[facility] 8 8 [facility] T HOSPITAL RADHA - 8 8 [facility]EN [facility] T EMERGENCY 57863 [facility] 8 8 [facility] T VISIT MODERATE SEVERITY HOSPITAL RAD[facility] - 8 8 [facility] OUTPATIEN INC T EMERGENCY 21741 [facility] 8 8 [facility] T VISIT HIGH/URGE NT SEVERITY HOSPITAL RAD[facility] - 8 8 [facility] OUTPATIEN INC T EMERGENCY 96082 JOSE CARRION, 8 8 [facility] T VISIT ON HIGH/URGE NT SEVERITY OFFICE 92633 ANALI [facility] 8 8 MEDICAL [place] T VISIT SERV 15 FOUNDATIO MINUTES OFFICE 39452 [facility] 8 MAIRA Bernal T VISIT 15 MINUTES HOSPITAL RADHA - 8 8 [facility] OUTPATIEN INC T EMERGENCY 43006 RAD[facility] 8 8 [facility] T VISIT LIMITED/M INOR PROB HOSPITAL RADHA - 8 8 [facility] T EMERGENCY 06630 RAD[facility] 8 8 [facility] T VISIT LOW/MODER SEVERITY OFFICE 58742 ANALI [facility] [facility] 8 8 MEDICAL [place] T VISIT SERV 25 FOUNDATIO MINUTES HOSPITAL RADHA - 8 8 [facility] OUTPATIEN INC T HOSPITAL RADHA - 8 8 [facility] OUTPATIEN [facility] T EMERGENCY 59210 RAD[facility] 8 8 [facility] T VISIT LOW/MODER SEVERITY OFFICE 73235 WENDY NGUYEN CONSULTAT 8 8 , CALEB ELLIS NEW/ESTAB PATIENT 30 MIN HOSPITAL [facility] - 8 8 [facility] OUTPATIEN INC T EMERGENCY 63555 [facility] 8 8 [facility] T VISIT LOW/MODER SEVERITY HOSPITAL RAD[facility] - 8 8 [facility] OUTPATIEN INC T EMERGENCY 95712 RAD[facility] 8 8 [facility] DEPARTMEN INC T VISIT LOW/MODER SEVERITY OFFICE 77748 RIGOBERTO FRANKLIN OUTPATIEN 8 8 MAIRA Bernal T VISIT 15 MINUTES EMERGENCY 08796 RAD[facility] 8 8 [facility] DEPARTMEN [facility] T VISIT LIMITED/M INOR PROB HOSPITAL RAD[facility] - 8 8 [facility] OUTPATIEN [facility] T OFFICE 41518 YARA [place] OUTPATIEN 8 8 [place] CALVIN T VISIT 25 MINUTES HOSPITAL RADHA - 8 8 [facility] OUTPATIEN [facility] RADHA - 8 8 [facility] T EMERGENCY 90405 RAD[facility] 8 8 [facility] T VISIT LOW/MODER SEVERITY OFFICE 68251 JENNY MORALES 8 8 [facility] CALVIN T VISIT SERV 15 FOUNDATIO MINUTES EMERGENCY 41432 RADHA 8 8 [facility] T VISIT LIMITED/M INOR PROB HOSPITAL RADHA - 8 8 [facility] OUTPATIEN [facility] T OFFICE 00278 RIGOBERTO FRANKLIN OUTPATIEN 8 8 MAIRA Bernal T NEW 30 MINUTES EMERGENCY 72188 [facility] 8 8 [facility] T VISIT LOW/MODER SEVERITY EMERGENCY 38988 RADHA GILLIAM 8 8 [facility] T VISIT PROF SERV MODERATE SEVERITY HOSPITAL RADHA - 8 8 [facility] OUTPATIEN [facility] T EMERGENCY 11532 RADHA GILLIAM 8 8 [facility] T VISIT PROF SERV MODERATE SEVERITY HOSPITAL RADHA - 8 8 [facility] OUTPATIEN INC T EMERGENCY 28380 RADHA 8 8 [facility] DEPARTMEN INC T VISIT LOW/MODER SEVERITY HOSPITAL [facility] - 8 8 [facility] OUTPATIEN INC T EMERGENCY 76093 [facility] 8 8 [facility] DEPARTMEN INC T VISIT LOW/MODER SEVERITY OFFICE 39851 JENNY MORALES 8 8 PETRA CALVIN T VISIT SERV 25 FOUNDATIO MINUTES HOSPITAL RADHA - 8 8 [facility] OUTPATIEN INC T EMERGENCY 85827 RAD[facility] 8 8 [facility] DEPARTMEN INC T VISIT MODERATE SEVERITY HOSPITAL RADHA - 8 8 [facility] OUTPATIEN INC T
--- OUTSIDE RECORDS SUMMARY | 2016-12-30 18:14 | External Medical Summary Rpt | CCD ---
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 20 20 DE ai HI 71 08 08 la N 2 PH [...] 34 4- 4- 00 86 Av ve WA 59 20 20 AI ai ED 31 [...] 00 14 7 RI 72 No Ac WA 17 -1 -2 .0 TE 89 t [...] OF E CY NT HI AN A WA 00 02 04 01 60 15 EA [...] 08 08 la TA 8 PH bl HI AR e N- MA CA CY FF [...] ve TA 40 20 20 DE ai HI 71 08 08 la N 2 PH [...] 8- 6- 00 SI 54 Av ve WA 02 20 20 DE ai ED 20 08 08 la NI 7 PH bl SO AR e LO MA NE CY 4 OF MG CY NT DO HI SE AN PK A WA 00 02 03 00 60 15 EA [...] ve TA 40 20 20 DE ai HI 71 08 08 la N 2 PH [...] SQUARE METERS Comment: If this patient is -Hungarian, then multiply the Comment: result by 1.210. [...] blood 19:10 platele t mean volume tk [place] % = 4.9 % 1.7-9.3 complet 017 [...] Procedure DOS Code Location Performer Comment THERAPEUT 10484 RADHA GARCIA IC [facility] PROPHYLAC INC INC TIC/DX INJECTION SUBQ/IM THER 55891 [place] PROPH/DX 7 [facility] NJX IV E E PUSH [facility] SINGLE/1S T SBST/DRUG RINGERS J7120 [facility] LACTATE 7 [facility] INFUSION E E UP TO [facility] [address] [place] [address] [facility] LIPASE 7 [facility] E E [facility] INJECTION J2405 [facility] ONDANSETR E E ON HCL [facility] PER 1 MG COMPREHEN 94769 [facility]IT[facility] SIVE 7 [facility] METABOLIC E E PANEL [facility] THERAPEUT 20481 [facility] IC 7 [facility] INJECTION E E IV PUSH [facility] EACH NEW DRUG LOCM Q9967 [facility] [phone] [facility] MG/ML E E IODINE [facility] CONCENTRA TION PER ML URNLS DIP 59085 [facility] 7 [facility] STICK/TAB E E LET RGNT [facility] AUTO W/O MICROSCOP Y URINE 68241 [facility] TEST E E VISUAL [facility] COLOR CMPRSN METHS THER 62729 [facility] PROPH/DX 7 [facility] NJX EA E E SEQL IV [facility] PUSH SBST/[place] [address] [facility] ABDOMEN & 7 [facility] PELVIS E E W/CONTRAS [facility]OSP[facility] HOSPITALS T MATERIAL BLOOD 02752 [facility] COUNT 7 [facility] COMPLETE E E AUTO&AUTO [facility] DIFRNTL WBC RADEX ABD 43772 RADIOLOGY KLEIMEYER COMPL 7 AQT ABD ASSOCIATE W/S/E/D S [place] [address] [place] [address] RADIOLOGY TOM ABDOMEN & 7 PELVIS ASSOCIATE W/[place] [address] RADIOLOGY JIMENEZ ABDOMEN & 7 PELVIS ASSOCIATE W/CONTRAS S OF NOTH T MATERIAL 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 MILEAGE 7 IRISH IRISH PER MEDICAL MEDICAL [place] [address] RADIOLOGY TYRELL ABDOMEN & 7 PELVIS ASSOCIATE W/CONTRAS S OF NOT T MATERIAL ALPHA-1-A 08840 [facility] NTITRYPSI 7 [facility] N TOTAL FT FT KARINE KARINE COLLECTIO 37051 [facility] N VENOUS 7 [facility] BLOOD FT FT VENIPUNCT KARINE KARINE URE PET 63018 [facility] IMAGING 7 [facility] ATTENUATI [facility] ON SKULL E EDGE E EDGE BASE MID-THIGH TRANSITIO [address] SRVC 7 PHYSICIAN DAY S DISCHARGE [...] AIDS INC AIDS INC COMPRESSO R SBSQ [address]/DAY 25 PHYSICIAN MINUTES S HOSPITAL 08951 [facility] DISCHARGE 7 [facility] MANAGEMEN PHYSICIAN T > 30 S MIN SBSQ [address]/DAY 25 PHYSICIAN MINUTES S SBSQ 38122 [facility] 7 [place] CARE/DAY 35 PHYSICIAN MINUTES S SBSQ 11648 [facility] 7 [place] CARE/DAY 35 PHYSICIAN MINUTES S CRITICAL 72765 [facility] 7 [facility] ILL/INJUR ED PHYSICIAN PATIENT S INIT 30-74 MIN RADIOLOGI 77795 [facility] [place] C 7 EXAMINATI ASSOCIATE ON CHEST S OF NOT SINGLE VIEW FRONTAL CRITICAL 89093 [facility] 7 [facility] ILL/INJUR ED PHYSICIAN PATIENT S INIT 30-74 MIN SBSQ 06122 [facility] 7 [facility] CARE/DAY 35 PHYSICIAN MINUTES S SBSQ [address] [place] [address] [facility] CARE/DAY 35 PHYSICIAN MINUTES S CRITICAL [address] [facility] 7 [place] ILL/INJUR ED PHYSICIAN PATIENT S INIT 30-74 MIN CRITICAL 39050 [facility] 7 [place] ILL/INJUR ED PHYSICIAN PATIENT S INIT 30-74 MIN RADIOLOGI 67121 [facility] C 7 EXAMINATI ASSOCIATE ON CHEST [place] [address] RADIOLOGY [place] ANGIOGRAP 7 III HY CHEST ASSOCIATE W/CONTRAS S OF NOT T/NONCONT RAST ECG [address]70 [facility] ROUTINE 7 [place] ECG W/LEAST PHYSICIAN 12 LDS S EKG I&R ONLY ANES LWR 34276 ANESTHESI CHASE ABD 7 A GROUP VENTRAL & PRACTICE INCISIONA L HERNIA REPAIR MUSC [address] [facility] MYOCUTANE 7 [place] OUS/FASCI OCUTANEOU PHYSICIAN S FLAP S TRUNK RPR RECRT [address] ST [facility] 7 [place] INCAL/VNT HERNIA PHYSICIAN REDUCIBLE S IMPLANT [address] [facility] M[facility]N 7 [place] HERNIA RPR/DEBRI PHYS[place] S[place] [address]197 ANESTHESI WEN DX/THER 7 A GROUP SBST PRACTICE INTRLMNR CRV/THRC W/[place] [address] [facility] SURG 7 [place] PATHOLOGY [place] [address] [address] [facility] SURG 7 [facility] PATHOLOGY MED CTR GROSS&ISAAC ROSCOPIC EXAM EGD [address] ST [facility] TRANSORAL 7 [place] BIOPSY SINGLE/MU PHYSICIAN LTIPLE S COLONOSCO [address] [facility] PY 7 [place] W/BIOPSY SINGLE/MU PHYSICIAN LTIPLE S ANES 30390 ANESTHESI RANDY LOWER 7 A GROUP INTESTINE PRACTICE ENDOSCOPY DISTAL DUODENUM C-REACTIV [address] E PROTEIN 6 [facility] CTR MED CTR 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 [address] RADIOLOGY KLEIMEYER ABDOMEN & 6 KERLINE PELVIS ASSOCIATE W/CONTRAS S OF NOTH T MATERIAL ADMN SET A7003 YOUR YOUR SM VOL 6 [facility]ACY [facility] PNEUMAT NEBULIZR DISPBL COMPREHEN 23662 RADHA GARCIA SIVE 6 [facility] METABOLIC INC INC PANEL C-REACTIV 14756 RADHA GARCIA E PROTEIN 6 [place] [address] RADHA GARCIA INFUSION 6 [facility] THERAPY/P INC INC ROPHYLAXI S /DX 1ST TO 1 HR BLOOD 38383 RADHA GARCIA COUNT 6 [facility] COMPLETE INC INC AUTO&AUTO DIFRNTL WBC RADIOLOGI 52255 [place] C EXAM 6 MEDICAL CHEST 2 IMAGING VIEWS ASS FRONTAL&L ATERAL URNLS DIP 71859 RADHA GARCIA 6 [facility] STICK/TAB INC INC LET REAGENT AUTO MICROSCOP Y BLOOD 87656 RADHA GARCIA COUNT 6 [facility] COMPLETE INC INC AUTO&AUTO DIFRNTL WBC CULTURE 69664 RADHA GARCIA BACTERIAL 6 [facility] INC [place] [address] RADHA GARCIA ABDOMEN & 6 [facility] PELVIS INC INC W/O CONTRAST MATERIAL COMPREHEN 70019 RADHA GARCIA SIVE 6 [facility] METABOLIC INC INC PANEL THER 84899 RADHA GARCIA PROPH/DX 6 [facility] NJX IV INC INC PUSH SINGLE/1S T SBST/DRUG THERAPEUT 22585 RADHA GARCIA IC 6 [facility] INJECTION INC INC IV PUSH EACH NEW DRUG RADEX 66439 [place] [facility] SPINE 6 MEDICAL SANDRA LUMBOSACR IMAGING AL ASS MINIMUM 4 VIEWS CHEMOTX 74867 RADHA GARCIA ADMN IV 6 [facility] NFS TQ UP INC INC 1 HR SBST/DRUG BLOOD 33014 RADHA GARCIA COUNT 6 [facility] COMPLETE INC INC AUTO&AUTO DIFRNTL WBC INJECTION J3380 RADHA GARCIA 6 [facility] VEDOLIZUM INC INC AB 1 MG COMPREHEN 23002 RADAH GARCIA SIVE 6 [facility] METABOLIC INC INC PANEL C-REACTIV 98623 RADHA GARCIA E PROTEIN 6 [facility] INC INC GROUND A0425 [facility] MILEAGE 6 AMBULANCE AMBULANCE PER SERVICE SERVICE STATUTE MILE THERAPEUT 79944 RADHA GARCIA IC 6 [facility] PROPHYLAC INC INC TIC/DX INJECTION SUBQ/IM AMBULANCE A0429 [facility] SERVICE 6 AMBULANCE AMBULANCE BLS SERVICE SERVICE EMERGENCY TRANSPORT THERAPEUT 18145 [facility] SHAUN IC 6 PHYSICIAN STONE PROPHYLAC S GROUP ZUHAIR DUVAL TIC/DX INJECTION SUBQ/IM ADMN SET A7003 YOUR YOUR SM VOL 6 PHARMACY [facility] PNEUMAT NEBULIZR DISPBL THERAPEUT 35867 [facility] IC 6 PHYSICIAN PHYSICIAN PROPHYLAC S GROUP S GROUP TIC/DX INJECTION SUBQ/IM INJECTION J3380 RADHA GARCIA 6 [facility] VEDOLIZUM INC INC AB 1 MG C-REACTIV 34279 RADHA GARCIA E PROTEIN 6 [facility] INC INC COMPREHEN 89804 RADHA GARCIA SIVE 6 [facility] METABOLIC INC INC PANEL BLOOD 55150 RADHA GARCIA COUNT 6 [facility] COMPLETE INC INC AUTO&AUTO DIFRNTL WBC CHEMOTX 62661 RADHA GARCIA ADMN IV 6 [facility] NFS UP INC INC 1 HR / SBST/DRUG ADMN SET A7003 YOUR YOUR SM VOL 6 PHARMACY [facility] PNEUMAT NEBULIZR DISPBL RADEX ABD 91284 [facility] ALL COMPL 6 MEDICAL AQT ABD IMAGING W/S/E/D ASS VIEWS 1 VIEW CH CHEMOTX 14848 RADHA THOMASON ADMN IV 6 [facility] NFS UP INC INC 1 HR SBST/DRUG BLOOD 49885 RADHA GARCIA COUNT 6 [facility] COMPLETE INC INC AUTO&AUTO DIFRNTL WBC C-REACTIV 35049 RADHA GARCIA E PROTEIN 6 [facility] INC INC COMPREHEN 77499 RADHAANYI GARCIA SIVE 6 [facility] METABOLIC INC INC PANEL INJECTION J3380 RADHAANYI GARCIA 6 [facility] VEDOLIZUM INC INC AB 1 MG INJECTION J3380 RADHA RADHA 6 [facility] VEDOLIZUM INC INC AB 1 MG COMPREHEN 24472 RADHA GARCIA SIVE 6 [facility] METABOLIC INC INC PANEL C-REACTIV 46110 RADHA GARCIA E PROTEIN 6 [facility] INC INC BLOOD 94085 RADHA GARCIA COUNT 6 [facility] COMPLETE INC INC AUTO&[place] [address] RADHA GARCIA INFUSION 6 [facility] THERAPY/P INC INC ROPHYLAXI S /DX 1ST TO 1 HR CHEMOTX 06686 RADHA GARCIA ADMN IV 5 [facility] NFS UP INC INC 1 HR SBST/DRUG BLOOD 55007 RADHA GARCIA COUNT 5 [facility] COMPLETE INC INC AUTO&AUTO DIFRNTL WBC C-REACTIV 72546 RADHA GARCIA E PROTEIN 5 [facility] INC INC COMPREHEN 64496 RADHA GARCIA SIVE 5 [facility] METABOLIC INC INC PANEL INJECTION C9026 RADHA GARCIA 5 [facility] VEDOLIZUM INC INC AB 1 MG PROTHROMB 64030 RADHA GARCIA IN TIME 5 [facility] INC INC TB CELL 16426 RADHA GARCIA MEDIATED 5 [facility] ANTIGN INC INC RESPNSE GAMMA INTERFERO N COLLECTIO 67767 RADHA GARCIA N VENOUS 5 [facility] BLOOD INC INC VENIPUNCT URE CYANOCOBA 72336 RADHA GARCIA JAKOB 5 [facility] VITAMIN INC INC B-12 COMPREHEN 98524 RADHA GARCIA SIVE 5 [facility] METABOLIC INC INC PANEL C-REACTIV 57416 RADHA GARCIA E PROTEIN 5 [facility] INC INC BLOOD 70524 RADHA GARCIA COUNT 5 [facility] COMPLETE INC INC AUTO&AUTO DIFRNTL WBC 25 11903 RDAHA GARCIA HYDROXY 5 [facility] INCLUDES INC INC FRACTIONS IF PERFORMED RADEX 10211 [facility] SPINE 5 MEDICAL SANDRA CERVICAL IMAGING 4 OR 5 ASS VIEWS RADIOLOGI 13606 RADHA GARCIA C 5 [facility] EXAMINATI INC INC ON CHEST SINGLE VIEW FRONTAL BLOOD 03698 RADHA GARCIA COUNT 5 [facility] COMPLETE INC INC AUTO&AUTO DIFRNTL WBC NATRIURET 76849 RADHA GARCIA IC 5 [facility] [place] [address] RADHA GARCIA TROPONIN 5 [facility] QUANTITAT INC INC ANIYAH ECG 90551 TAM[facility] LUNDBERG ROUTINE 5 REJI REJI ECG W/LEAST 12 LDS I&R ONLY PRESSURIZ 19496 RADHA GARCIA ED/NONPRE 5 [facility] SSURIZED INC INC INHALATIO N TREATMENT COMPREHEN 38422 RADHA GARCIA SIVE 5 [facility] METABOLIC INC INC PANEL ECG 34182 RADHA GARCIA ROUTINE 5 [facility] ECG INC INC W/LEAST 12 LDS TRCG ONLY W/O I&R NEBULIZER E0570 [facility] BLOOM WITH 5 HOME HOME COMPRESSO MEDICAL MEDICAL R EQUIPME EQUIPME ADMN SET A7003 YOUR YOUR SM VOL 5 PHARMACY PHARMACY [facility]INIC PNEUMAT NEBULIZR DISPBL THERAPEUT 23021 [facility] IC 5 PHYSICIAN ISAAC PROPHYLAC S GROUP TIC/DX INJECTION SUBQ/IM INJECTION J1040 [facility] 5 PHYSICIAN ISAAC METHYLPRE S GROUP DNISOLONE ACETATE 80 MG PRESSURIZ 66695 [facility] ED/NONPRE 5 PHYSICIAN ISAAC SSURIZED S GROUP INHALATIO N TREATMENT RADIOLOGI 97052 [facility] ALL C EXAM 5 MEDICAL CHEST 2 IMAGING VIEWS ASS FRONTAL&L ATERAL UNCLASSIF J3490 RADHA GARCIA IED DRUGS 5 [facility] INC INC EGD 48969 RADHA GARCIA TRANSORAL 5 [facility] BIOPSY INC INC SINGLE/MU LTIPLE COLONOSCO 93670 [place] [facility] PY 5 MEDICAL KERLINE W/BIOPSY SERV SINGLE/[place] [address] [facility] SURG [address] [place] [address] PATHOLOGY GROSS&ISAAC ROSCOPIC EXAM RADIOLOGI 23828 [place] [facility] [facility] EXAM 5 MEDICAL SANDRA CHEST 2 IMAGING VIEWS ASS FRONTAL&[place] [address] RADHA GARCIA THYROXINE 5 [facility] [place] [address] RADHA GARCIA THYROID 5 [facility] STIMULATI INC INC NG HORMONE TSH 25 70842 RADHA GARCIA HYDROXY 5 [facility] INCLUDES INC [place] [address] RADHA GARCIA TRIIODOTH 5 [facility] YRONINE INC INC T3 FREE COMPREHEN 30114 RADHA GARCIA SIVE 5 [facility] METABOLIC INC INC PANEL THERAPEUT 44468 [facility] IC 5 PHYSICIAN ISAAC PROPHYLAC S GROUP TIC/DX INJECTION SUBQ/IM MICROSOMA 68754 RADHA GARCIA L 5 [facility] ANTIBODIE INC INC S EACH COLLECTIO 64445 [facility] YEIMI N VENOUS 5 PHYSICIAN ISAAC BLOOD S GROUP VENIPUNCT URE RADIOLOGI 16397 [place] C EXAM 5 MEDICAL SANDRA CHEST 2 IMAGING VIEWS ASS FRONTAL&[place] [address] RADHA GARCIA IRON 5 [facility] INC INC IRON 46671 RADHA GARCIA BINDING 5 [facility] CAPACITY INC INC BLOOD 33600 RADHA GARCIA COUNT 5 [facility] COMPLETE INC INC AUTO&AUTO DIFRNTL WBC 25 35471 RADHAANYI GARCIA HYDROXY 5 [facility] INCLUDES INC INC FRACTIONS IF PERFORMED CYANOCOBA 24730 RADHA GARCIA JAKOB 5 [facility] VITAMIN INC INC B-12 COLLECTIO 35868 RADHA GARCIA N VENOUS 5 [facility] BLOOD INC INC VENIPUNCT URE COMPREHEN 04833 RADHA THOMASON SIVE 5 [facility] METABOLIC INC INC PANEL C-REACTIV 95042 RADHA GARCIA E PROTEIN 5 [facility] INC INC RADEX 25805 [place] ABDOMEN 1 5 MEDICAL ROM IMAGING ANTEROPOS ASS TERIOR VIEW RADEX 07813 RADHA GARCIA ABDOMEN 5 [facility] COMPL INC INC W/DCBTS&/ ERC VIEWS OPHTH 83349 SCIFRES SCIFRES MEDICAL 5 ANG ANG XM&EVAL COMPRE NEW PT 1/> VST COMPREHEN 73651 RADHA RADHA SIVE 5 [facility] METABOLIC INC INC PANEL 25 06087 RADHA GARCIA HYDROXY 5 [facility] INCLUDES INC INC FRACTIONS IF PERFORMED BLOOD 43565 RADHA GARCIA COUNT 5 [facility] COMPLETE INC INC AUTO&[place] [address] RADHA GARCIA FREE 5 [facility] [place] [address] RADHA GARCIA THYROID 5 [facility] STIMULATI INC INC NG HORMONE TSH RADIOLOGI 00188 RADHA GARCIA C EXAM 4 [facility] CHEST 2 INC INC VIEWS FRONTAL&L ATERAL IAADI 31732 RADHA GARCIA INFLUENZA 4 [facility] B VIRUS INC INC IAADI 94537 RADHA GARCIA INFFLUENZ 4 [facility] A A VIRUS INC INC HOSPITAL 43338 [facility] 4 PHYSICIAN ISAAC DAY S GROUP MANAGEMEN T 30 MIN/< SBSQ 18913 [facility] 4 PHYSICIAN ISAAC CARE/DAY S GROUP 15 MINUTES INITIAL 59657 [facility] 4 PHYSICIAN ISAAC CARE/DAY S GROUP 50 MINUTES RADIOLOGI 67543 [facility] RAE 4 MEDICAL SANDRA EXAMINATI IMAGING ON CHEST ASS SINGLE VIEW FRONTAL CT THORAX 13264 [facility] RAE 4 MEDICAL SANDRA W/CONTRAS IMAGING T ASS MATERIAL ECG 26645 TASHIA LAO JR ROUTINE 4 DWI DWI ECG W/LEAST 12 LDS I&R ONLY THERAPEUT 44280 RADHAANYI GARCIA IC 4 [facility] INJECTION [place] [address] RADHA GARCIA INFUSION 4 MEM [facility] THERAPY/P INC INC ROPHYLAXI S /DX 1ST TO 1 HR COMPREHEN 07106 RADHA GARCIA SIVE 4 [facility] METABOLIC INC INC PANEL BLOOD 60589 RADHA GARCIA COUNT 4 [facility] COMPLETE INC INC AUTO&AUTO DIFRNTL WBC RADEX ABD 65738 [facility] CASTILLOTERESA COMPL 4 MEDICAL ROM AQT ABD IMAGING W/S/E/D ASS VIEWS 1 VIEW CH NZYM 69121 [facility] ACTIV BLD 4 Y Y [facility] CELLS/TIS S NONRADACT SUBSTRATE EA BLOOD 33397 [facility] COUNT 4 Y Y [facility] AUTO&AUTO DIFRNTL WBC IRON 60959 [facility] BINDING 4 Y Y [place] [address] 68589 [facility] HYDROXY 4 Y Y [facility]CLUDES HOSPITAL HOSP[place] [address] [facility] FERRITIN 4 Y Y [facility] COMPREHEN 89881 [facility] SIVE 4 Y Y METABOLIC [facility] PANEL C-REACTIV 62405 [facility] E PROTEIN 4 Y Y HOSPITAL HOSPITAL TB CELL 28133 [facility] MEDIATED 4 Y Y ANTIGN [facility] RESPNSE GAMMA INTERFERO N COLLECTIO 92495 [facility] N VENOUS 4 Y Y BLOOD [facility] VENIPUNCT URE CYANOCOBA 73281 [facility] JAKOB 4 Y Y VITAMIN [facility] B-12 RADIOLOGI 82179 [place] C EXAM 4 MEDICAL ROM CHEST 2 IMAGING VIEWS ASS FRONTAL&[place] [address] RADHA THOMASON TRACT UPR 4 [facility] W/SM INT INC [place] [address] [place] UPR W/WO 4 MEDICAL [facility] GLUCOSE IMAGING W/SM ASS INTEST FOLLW-THR U BASIC 96546 RADHA GARCIA METABOLIC 4 [facility] PANEL INC INC CALCIUM TOTAL RADEX 45491 [place] ABDOMEN 4 MEDICAL ROM COMPL IMAGING W/DCBTS&/ [place] [address] [place] ABDOMEN & 4 MEDICAL ROM PELVIS IMAGING W/[place] [address] [place] ABDOMEN & 4 MEDICAL ROM PELVIS IMAGING W/O ASS CONTRAST MATERIAL RADEX 45148 [place] [facility] SPINE 4 MEDICAL SANDRA LUMBOSACR IMAGING AL ASS MINIMUM 4 VIEWS AMBULANCE A0429 [facility] SERVICE 4 AMBULANCE AMBULANCE BLS SERVICE SERVICE EMERGENCY TRANSPORT GROUND A0425 [facility] MILEAGE 4 AMBULANCE AMBULANCE PER SERVICE SERVICE STATUTE MILE RADEX ABD 66887 [facility] COMPL 4 ROM ROM AQT ABD W/S/E/D VIEWS 1 VIEW CH ECG 50643 MCKEMIE GEOFFREYKEMIE ROUTINE 3 JR JUAN ANTONIO JR JUAN ANTONIO ECG W/LEAST 12 LDS I&R ONLY RADEX 02958 [facility] ABDOMEN 1 3 ROM ROM ANTEROPOS TERIOR VIEW REMOVAL 90048 BOTTIGGI BOTTIGGI PERITONEA 3 ANT ANT L FOREIGN BODY FROM CAVITY ANES 11451 JIAN VILLAR INTRAPERI 3 CELESTINE CELESTINE TONEAL UPPER ABDOMEN W/[place] [address] MORRISON MORRISON SURG 3 JUAN ANTONIO JUAN ANTONIO PATHOLOGY GROSS EXAMINATI ON ONLY SUSCEPTIB 98209 RADHA GARCIA LTY STDY 3 [facility] ANTIMICRB INC INC IAL MICRO/AGA R DILUTJ BASIC 10769 RADHA GARCIA METABOLIC 3 [facility] PANEL INC INC CALCIUM TOTAL CUL BACT 02493 RADHA GARCIA XCPT 3 [facility] URINE INC INC BLOOD/STO OL AEROBIC ISOL CUL BACT 33407 RADHA GARCIA AEROBIC 3 [facility] ADDL INC INC METHS DEFINITIV E EA ISOL BLOOD 58170 RADHA GARCIA COUNT 3 [facility] COMPLETE INC INC AUTO&AUTO DIFRNTL WBC BLOOD 58744 RADHA GARCIA COUNT 3 [facility] COMPLETE INC INC AUTO&[place] [address] RADHA GARCIA AMYLASE 3 [facility] INC INC URNLS DIP 45318 RADHA GARCIA 3 [facility] STICK/TAB INC INC LET REAGENT AUTO MICROSCOP Y COMPREHEN 32738 RADHA GARCIA SIVE 3 [facility] [place] [address] RADHA GARCIA LIPASE 3 [facility] INC INC RADIOLOGI 35429 TERESA TERESA C EXAM 3 ROM ROM CHEST 2 VIEWS FRONTAL&L ATERAL RADIOLOGI 40134 TERESA TERESA C EXAM 3 ROM ROM CHEST 2 VIEWS FRONTAL&L ATERAL RADIOLOGI 57853 TERESA TERESA C 3 ROM ROM EXAMINATI ON CHEST SINGLE VIEW FRONTAL ANES 89770 BOBBY HORNE INTRAPERI 3 ANESTH TONEAL OF THE UPPER BLUE ABDOMEN W/LAPS NOS COLECTOMY 85189 WENDY NGUYEN PRTL 3 BOONE BOONE W/RMVL TERMINAL ILEUM & [place] [address] LEON ISAAC LEON ISAAC SURG 3 PATHOLOGY GROSS&ISAAC ROSCOPIC EXAM OPEN AND 4572 RADHA RADHA OTHER 3 [facility] CECECTOMY INC INC COMPREHEN 24808 RADHA GARCIA SIVE 3 [facility] METABOLIC INC INC PANEL BLOOD 77249 RADHA GARCIA COUNT 3 [facility] COMPLETE INC INC AUTO&AUTO DIFRNTL WBC BLOOD 14663 RADHA GARCIA COUNT 3 [facility] COMPLETE INC INC AUTO&AUTO DIFRNTL WBC RADEX ABD 43789 TERESA TERESA COMPL 3 ROM ROM AQT ABD W/S/E/D VIEWS 1 VIEW CH URNLS DIP 43951 RAD[facility] THOMASON 3 [facility] STICK/TAB INC INC LET REAGENT AUTO MICROSCOP Y COMPREHEN 63124 RADHA RADHA SIVE 3 [facility] METABOLIC INC INC PANEL THERAPEUT 75839 RADHA GARCIA IC 3 [facility] INJECTION INC [place] [address] RADHA GARCIA LIPASE 3 [facility] INC INC THER 03700 RADHA GARCIA PROPH/DX 3 [facility] NJX IV INC INC PUSH SINGLE/1S T SBST/DRUG IAADI 87487 RADHA GARCIA INFFLUENZ 3 [facility] A A VIRUS INC INC IAADI 52137 RADHA GARCIA INFLUENZA 3 [facility] [place] [address] RADHA GARCIA LIPASE 2 [facility] INC INC THERAPEUT 98291 RADHA GARCIA IC 2 [facility] INJECTION INC INC IV PUSH EACH NEW DRUG COMPREHEN 19990 RADHA GARCIA SIVE 2 [facility] METABOLIC INC INC PANEL LOCM Q9967 RADHA GARCIA [phone] 2 [facility] MG/ML INC INC IODINE CONCENTRA TION PER ML URNLS DIP 15128 RAD[facility] GARCIA 2 [facility] STICK/TAB INC [place] [address] [place] TERESA ABDOMEN & 2 MEDICAL ROM PELVIS IMAGING W/CONTRAS ASS T MATERIAL THER 86934 RADHA GARCIA PROPH/DX 2 [facility] NJX EA INC INC SEQL [place] P[place] SBST/[place] [address] RADHA GARCIA AMYLASE 2 [facility] INC INC BLOOD 83276 RADHA GARCIA COUNT 2 [facility] COMPLETE INC INC AUTO&AUTO DIFRNTL WBC 3D 39061 RADHA GARCIA RENDERING 2 [facility] INC INC W/INTERP& [place] [address] RADHA GARCIA INFUSION 2 [facility] THERAPY/P INC INC ROPHYLAXI S /DX 1ST TO 1 HR RADEX 64669 SHARON MOORE ABDOMEN 1 2 MEDICAL ROM IMAGING ANTEROPOS ASS TERIOR VIEW RADIOLOGI 37897 SHARON MOORE C EXAM 2 MEDICAL ROM CHEST 2 IMAGING VIEWS ASS FRONTAL&L ATERAL SKIN TEST 17179 RADHA GARCIA 2 [facility] TUBERCULO [place] [address] RADHA RADHA LIPASE 2 [facility] INC INC COMPREHEN 52188 RADHA THOMASON SIVE 2 [facility] METABOLIC INC INC PANEL URNLS DIP 93454 RADHAANYI GARCIA 2 [facility] STICK/TAB INC INC [place] [address] RADHA GARCIA AMYLASE 2 [facility] INC INC CULTURE 72638 [facility] BACTERIAL 2 [facility] INC INC QUANTTATI VE COLONY COUNT URINE BLOOD 75487 RADHA GARCIA COUNT 2 [facility] COMPLETE INC INC AUTO&[place] [address] RADHA GARCIA INFUSION 2 [facility] THERAPY/P INC INC ROPHYLAXI S /DX 1ST TO 1 [place] [address] RADHA GARCIA INFUSION 2 [facility] THERAPY INC INC PROPHYLAX IS/DX EA HOUR EGD 80832 RADHA GARCIA TRANSORAL 2 [facility] BIOPSY INC INC SINGLE/MU LTIPLE CUL 14817 RADHA GARCIA PRSMPTV 2 [facility] PTHGNC INC INC ORGANISMS SCR DNS CHART CRITICAL 22828 [facility]I [facility] CARE 2 ISAAC ISAAC ILL/INJUR ED PATIENT INIT 30-74 MIN ECG 88391 TAMIKA ALEGRIASON ROUTINE 2 REJI REJI ECG W/LEAST 12 LDS I&R ONLY URINE 21758 RAD[facility] GARCIA 2 [facility] TEST INC INC VISUAL COLOR CMPRSN METHS URNLS DIP 64837 RADHA GARCIA 2 [facility] STICK/TAB INC INC LET REAGENT AUTO MICROSCOP Y RADEX 67244 RADHA GARCIA SMALL 2 [facility] INTESTINE INC INC [place] [address] [facility] UPR W/WO 2 MEDICAL ROM GLUCOSE IMAGING W/SM ASS INTEST FOLLW-THR U BLOOD 60471 RADHA GARCIA COUNT 2 [facility] COMPLETE INC INC AUTO&AUTO DIFRNTL WBC C-REACTIV 48878 RADHA GARCIA E PROTEIN 2 [facility] INC INC OPHTH 43624 [facility] MEDICAL 2 XM&EVAL COMPRE NEW PT 1/> VST DETERMINA 12466 [facility] TION 2 REFRACTIV E STATE BLOOD 95584 RADHA GARCIA COUNT 2 [facility] COMPLETE INC INC AUTO&[place] [address] RADHA GARCIA INFUSION 2 [facility] THERAPY/P INC INC ROPHYLAXI S /DX 1ST TO 1 [place] [address] RADHA GARCIA AMYLASE 2 [facility] INC INC URNLS DIP 95985 RADHA GARCIA 2 [facility] STICK/TAB INC INC LET REAGENT AUTO MICROSCOP Y THERAPEUT 06956 RADHA GARCIA IC 2 [facility] INJECTION INC [place] [address] RADHA GARCIA LIPASE 2 [facility] INC INC COMPREHEN 12468 RADHA GARCIA SIVE 2 [facility] METABOLIC INC INC PANEL COMPREHEN 30413 RADHA GARCIA SIVE 2 [facility] [place] [address] RADHA GARCIA LIPASE 2 [facility] INC INC THER 51938 RADHA GARCIA PROPH/DX 2 [facility] NJX IV INC INC PUSH SINGLE/1S T SBST/DRUG BLOOD 92443 RADHA GARCIA COUNT 2 [facility] COMPLETE INC INC AUTO&AUTO DIFRNTL WBC BLOOD 60137 RADHAANYI GARCIA COUNT 2 [facility] COMPLETE INC INC AUTO&AUTO DIFRNTL WBC URNLS DIP 24510 RADHA GARCIA 2 [facility] STICK/TAB INC INC [place] [address] RADHA GARCIA AMYLASE 2 [facility] INC INC THERAPEUT 57316 RADHA GARCIA IC 2 [facility] PROPHYLAC INC INC TIC/DX INJECTION SUBQ/[place] [address] RADHA GARCIA LIPASE 2 [facility] INC INC COMPREHEN 12174 RADHA GARCIA SIVE 2 [facility] METABOLIC INC INC PANEL THERAPEUT 12294 RADHA GARCIA IC 2 [facility] PROPHYLAC INC INC TIC/DX INJECTION SUBQ/IM THERAPEUT 34680 RADHA GARCIA IC 2 [facility] PROPHYLAC INC INC TIC/DX INJECTION SUBQ/IM AMB A0427 [facility] SERVICE 2 AMBULANCE AMBULANCE ALS SERVICE SERVICE EMERGENCY TRANSPORT LEVEL 1 GROUND A0425 [facility] MILEAGE 2 AMBULANCE AMBULANCE PER SERVICE SERVICE STATUTE MILE RADEX 04771 RADHA GARCIA SPINE 2 [facility] LUMBOSACR INC INC AL MINIMUM 4 VIEWS RADEX 40226 RADHA GARCIA RIBS UNI 2 [facility] W/POSTERO INC INC ANT CH MINIMUM 3 VIEWS RADEX HIP 02381 RADHA GARCIA 2 [facility] UNILATERA INC INC L COMPLETE MINIM[address] [place] [address] RADHA GARCIA ABDOMEN & 1 [facility] PELVIS INC INC [place] [address] RADHA GARCIA INFUSION 1 [facility] THERAPY/P INC INC ROPHYLAXI S /DX 1ST TO 1 HR BASIC 02269 RADHA GARCIA METABOLIC 1 [facility] PANEL INC INC CALCIUM TOTAL 3D 02719 RADHA GARCIA RENDERING 1 [facility] INC INC W/INTERP& POSTPROC DIFF WORK STATION BLOOD 03562 RADHA GARCIA COUNT 1 [facility] COMPLETE INC INC AUTO&AUTO DIFRNTL WBC URNLS DIP 35015 RADHA THOMASON 1 [facility] STICK/TAB INC [place] [address] RADHA GARCIA INFUSION 1 [facility] THERAPY INC INC [place] [address] RADHA GARCIA LIPASE 1 [facility] INC INC INJECTION J2405 RADHA [facility]ARCIA 1 [facility] ONDANSETR INC INC ON HCL PER 1 MG HEPATIC 63289 RADHA GARCIA FUNCTION 1 [facility] [place] [address] RADHA GARCIA INFUSION 1 [facility] THERAPY INC [place] [address] RADHA GARCIA INFUSION 1 [facility] THERAPY/P INC INC ROPHYLAXI S /DX 1ST TO 1 HR INJECTION J1745 RADHA THOMASON 1 [facility] INFLIXIMA INC INC B EXCLUDES BIOSIMILA R 10 MG 3D 81927 RADHA GARCIA RENDERING 1 [facility] INC INC W/INTERP& POSTPROC DIFF WORK STATION BLOOD 64906 RADHA GARCIA COUNT 1 [facility] COMPLETE INC INC AUTO&AUTO DIFRNTL WBC URINE 69365 RADHA GARCIA 1 [facility] TEST INC INC VISUAL COLOR CMPRSN METHS RADIOLOGI 83497 RADHA GARCIA C EXAM 1 [facility] CHEST 2 INC INC VIEWS FRONTAL&L ATERAL URNLS DIP 65466 RADHA GARCIA 1 [facility] STICK/TAB INC INC LET REAGENT AUTO MICROSCOP Y CT SOFT 78549 RADHA RADHA TISSUE 1 [facility] NECK INC INC W/CONTRAS T MATERIAL GROUND A0425 [facility] DAV[facility] MILEAGE 1 AMBULANCE AMBULANCE PER SERVICE SERVICE STATUTE MILE INJECTION J2405 RADHA GARCIA 1 [facility] ONDANSETR INC INC ON HCL PER 1 MG AMBULANCE A0429 [facility] SERVICE 1 AMBULANCE AMBULANCE BLS SERVICE SERVICE EMERGENCY TRANSPORT IAADI 41916 RADHA GARCIA INFLUENZA 1 [facility] B VIRUS INC INC IAADI 34595 RADHA GARCIA INFFLUENZ 1 [facility] A A VIRUS INC INC COMPREHEN 01214 RADHA GARCIA SIVE 1 [facility] [address] RADHA GARCIA STREPTOCO 1 [facility] [place] [address] RADHA GARCIA STREPTOCO 1 [facility] CCUS INC INC GROUP A IAADI 81894 RADHA GARCIA INFFLUENZ 1 [facility] A A VIRUS INC INC IAADI 51336 RADHA GARCIA INFLUENZA 1 [facility] [place] [address] RADHA GARCIA INFUSION 1 [facility] THERAPY INC [place] [address] RADHA GARCIA INFUSION 1 [facility] THERAPY/P INC INC ROPHYLAXI S /DX 1ST TO 1 HR RADIOLOGI 94652 [place] C EXAM 1 MEDICAL ROM CHEST 2 IMAGING VIEWS ASS FRONTAL&L ATERAL SKIN TEST 69293 RADHA GARCIA 1 [facility] TUBER[place] [address] RADHA GARCIA INFUSION 1 [facility] THERAPY INC INC PROPHYLAX IS/DX EA HOUR RADIOLOGI 87421 RADHA GARCIA C EXAM 1 [facility] CHEST 2 INC INC VIEWS FRONTAL&[place] [address] RADHA GARCIA INFUSION 1 [facility] THERAPY/P INC INC ROPHYLAXI S /DX 1ST TO 1 HR 3D 44240 RADHA GARCIA RENDERING 1 [facility] INC INC W/INTERP& [place] [address] RADHA GARCIA ABDOMEN & 1 [facility] PELVIS INC INC W/O CONTRAST MATERIAL BLOOD 38622 RADHA GARCIA COUNT 1 [facility] COMPLETE INC INC AUTO&AUTO DIFRNTL WBC URNLS DIP 62708 RADHA GARCIA 1 [facility] STICK/TAB INC INC [place] [address] RADHA GARCIA LIPASE 1 [facility] INC INC COMPREHEN 70333 RADHA GARCIA SIVE 1 [facility] METABOLIC INC INC PANEL URNLS DIP 42421 RADHA GARCIA 1 [facility] STICK/TAB INC INC LET REAGENT AUTO MICROSCOP Y BLOOD 42540 RADHA GARCIA COUNT 1 [facility] COMPLETE INC INC AUTO&AUTO DIFRNTL WBC BASIC 46052 RADHA GARCIA METABOLIC 1 [facility] [place] [address] RADHA GARCIA INFUSION 1 [facility] THERAPY/P INC INC ROPHYLAXI S /DX 1ST TO 1 HR BLOOD 02565 RADHA GARCIA COUNT 1 [facility] COMPLETE INC INC AUTO&AUTO DIFRNTL WBC URNLS DIP 60457 RADHA GARCIA 1 [facility] STICK/TAB INC [place] [address] RADHA GARCIA INFUSION 1 [facility] THERAPY INC INC [place]HY[place] [address] RADHA GARCIA AMYLASE 1 [facility] INC INC COMPREHEN 77364 RADHA GARCIA SIVE 1 [facility] [place] [address] RADHA RADHA LIPASE 1 [facility] INC INC SKIN TEST 41766 RADHA GARCIA 1 [facility] SIS INTRADERM AL RADIOLOGI 21099 [place] C EXAM 1 MEDICAL ROM CHEST 2 IMAGING VIEWS ASS FRONTAL&L ATERAL URNLS DIP 89366 RADHA GARCIA 1 [facility] STICK/TAB INC INC [place] [address] RADHA GARCIA CLOSTRIDI 0 [facility] [place] [address] RADHA GARCIA GIARDIA 0 [facility] INC INC CUL BACT 08609 RADHA GARCIA STOOL 0 [facility] AEROBIC INC INC ISOL SALMONELL A&SHIGELL C-REACTIV 42885 RADHA GARCIA E PROTEIN 0 [facility] HIGH INC INC SENSITIVI TY OVA&JACQUELINE 65001 RADHA GARCIA ITES 0 [facility] DIRECT INC INC SME[place] CONCENTRA TION & [place] [address] RADHA GARCIA INFUSION 0 [facility] THERAPY/P INC INC ROPHYLAXI S /DX 1ST TO 1 HR URNLS DIP 99324 RADHA GARCIA 0 [facility] STICK/TAB INC [place] [address] RADHA GARCIA INFUSION 0 [facility] THER INC INC PROPH ADDL SEQUENTIA L TO 1 [place] [address] RADHA RADHA AMYLASE 0 [facility] INC INC URNLS DIP 77623 RADHA GARCIA 0 [facility] STICK/TAB INC INC LET REAGENT AUTO MICROSCOP Y BLOOD 80929 RADHA GARCIA COUNT 0 [facility] COMPLETE INC INC AUTO&[place] [address] RADHA RADHA LIPASE 0 [facility] INC INC COMPREHEN 82374 RADHA GARCIA SIVE 0 [facility] [place] [address] RADHA RADHA STREPTOCO 0 [facility] CCUS INC INC GROUP A RADEX TOE 93831 RADHA GARCIA MINIMUM 0 [facility] 2 VIEWS INC INC AMBULANCE A0429 [facility] SERVICE 0 AMBULANCE AMBULANCE BLS SERVICE SERVICE EMERGENCY TRANSPORT GROUND A0425 [facility] MILEAGE 0 AMBULANCE AMBULANCE PER SERVICE SERVICE STATUTE MILE PHYSICAL 23037 RADHA GARCIA THERAPY 9 [facility] EVALUATIO INC INC N THERAPEUT 37096 RADHA GARCIA IC PX 1/> 9 [facility] AREAS INC INC EACH 15 MIN EXERCISES APPL 75597 RADHA GARCIA MODALITY 9 [facility] 1/> AREAS INC INC ELEC STIMJ UNATTENDE D APPLICATI 35852 RADHA GARCIA ON 9 [facility] MODALITY INC INC 1/> AREAS HOT/COLD PACKS APPL 03057 RADHA GARCIA MODALITY 9 [facility] 1/> AREAS INC INC ULTRASOUN D EA 15 MIN PSYCHOLOG 07836 PHYSICIAN TREVOR BLOUNT 9 S KP Bernal TEST[facility] ADMN BY [facility] TECH [place] HR NRV CNDJ 82012 SIENNA EL, AMPLT&LAT 9 KP [facility]ICH ENCY EA NRV MOTOR W/F-WAVE STD NRV CNDJ 69739 SIENNA EL, AMPLITUDE 9 KP GOODRICH & LATENCY EACH NERVE SENSORY NDL EMG 1 92109 SIENNA EL, XTR W/WO 9 KP [facility] RELATED PARASPINA L AREAS MRI 10657 CASEY C TERESA, SPINAL 9 TERESA CASEY CANAL LUMBAR W/O CONTRAST MATERIAL ECHO 69204 [facility] AM[facility], [facility] R-T 9 PHYSICIAN VALERIE Iglesias S GROUP W/WOM-MOD E COMPL SPEC&COLR D 3D 36683 CASEY C TERES[place], RENDERING 9 TERESA CASEY W/INTERP & POSTPROCE SS SUPERVISI ON RHEUMATOI 50469 RADHA GARCIA D FACTOR 9 [facility] QUANTITAT INC INC ANIYAH PROTEIN 81570 RADHA GARCIA ELECTROPH 9 [facility] ORETIC INC INC FRACTJ&QU ANTJ SERUM COMPREHEN 52723 RADHA GARCIA SIVE 9 [facility] METABOLIC INC INC PANEL SYPHILIS 15050 RADHA GARCIA TEST 9 [facility] NON-TREPO INC INC NEMAL ANTIBODY QUAL BLOOD 15875 RADHA GARCIA COUNT 9 [facility] COMPLETE INC INC AUTO&AUTO DIFRNTL WBC HEMOGLOBI 17873 RADHA GARCIA N 9 [facility] GLYCOSYLA INC INC ANGELA A1C CYANOCOBA 66812 RADHA RADHA JAKOB 9 [facility] VITAMIN INC INC B-12 [place] [address] RADHA GARCIA FOLIC 9 [facility] [place] [address] RADHA GARCIA THYROID 9 [facility] STIMULATI [place] [address] RADHA GARCIA THYROXINE 9 [facility] TOTAL INC INC RADIOLOGI 94482 RADHA RADHA C EXAM 9 [facility] CHEST 2 INC INC VIEWS FRONTAL&L ATERAL BLOOD 15027 RADHA GARCIA COUNT 9 [facility] COMPLETE INC INC AUTO&AUTO DIFRNTL WBC COMPREHEN 54334 RADHA THOMASON SIVE 9 [facility] METABOLIC INC INC PANEL THERAPEUT 14790 RADHA GARCIA IC 9 [facility] PROPHYLAC INC INC TIC/DX INJECTION SUBQ/IM C-REACTIV 08576 RADHA GARCIA E PROTEIN 9 [facility] [place] [address] [facility] ANALI KOHLER, ABDOMEN 9 RADIOLOGY J W/O CONTRAST MATERIAL CT PELVIS 71344 [facility] [place] JOSE F, W/O 9 [place] [address] RADHA GARCIA AMYLASE 9 [facility] INC INC URINE 97342 RADHA GARCIA 9 [facility] TEST INC INC VISUAL COLOR CMPRSN METHS URNLS DIP 76002 RADHA GARCIA 9 [facility] STICK/TAB INC INC LET REAGENT AUTO MICROSCOP Y BLOOD 03896 RADHA GARCIA COUNT 9 [facility] COMPLETE INC INC AUTO&AUTO DIFRNTL WBC RADEX 53830 RADHA GARCIA ABDOMEN 9 [facility] COMPL INC INC W/DCBTS&/ ERC VIEWS COMPREHEN 87388 RADHA GARCIA SIVE 9 [facility] METABOLIC INC INC PANEL CYANOCOBA 63309 RADHA GARCIA JAKOB 9 [facility] VITAMIN INC INC B-12 BLOOD 80371 RADHA GARCIA COUNT 9 [facility] COMPLETE INC INC AUTO&AUTO DIFRNTL WBC RADEX 37884 RADHA GARCIA SPINE 9 [facility] SCOLIOS INC INC STUDY W/SUPINE & ERECT STUDY OBSERVATI 27960 SCHULSTAD SCHULSTAD ON CARE 9 , CALEB , CALEB DISCHARGE MANAGEMEN T INITIAL 26493 SCHULSTAD JUANASTAD OBSERVATI 9 , CALEB , CALEB ON CARE/DAY 50 MINUTES RADEX ABD 19596 [facility] ANALI KOHLER, COMPL 9 RADIOLOGY J AQT ABD W/S/E/D VIEWS [address] PELVIS 10712 [facility] ANALI SHELTON, W/O 9 RADIOLOG[place] [address] [facility] ANALI [place] ABDOMEN 9 RADIOLOGY JUDAH Abdalla W/[place] [address] RADHA GARCIA INFUSION 9 [facility] THERAPY/P INC INC ROPHYLAXI S /DX 1ST TO 1 HR BLOOD 23398 RADHA GARCIA COUNT 9 [facility] COMPLETE INC INC AUTO&AUTO DIFRNTL WBC RADEX 50126 [facility] ABDOMEN 9 [facility] [place] P COMPL IMAGING W/DCBTS&/ ASSOCIATE ERC VIEWS S URNLS DIP 21089 RADHA GARCIA 9 [facility] STICK/TAB INC INC LET REAGENT AUTO MICROSCOP Y COMPREHEN 09337 RADHA GARCIA SIVE 9 [facility] METABOLIC INC INC PANEL 3D 12838 RADHA GARCIA RENDERING 9 [facility] W/INTERP INC INC & [place] [address] [place] HAR[place], HEAD/BRAI 9 [facility]ICAL [place] P N W/O IMAGING CONTRAST ASSOCIATE MATERIAL S CT PELVIS 22807 CN[facility] KOHLER, 9 RADIOLOGY J W/[place] [address] [facility] ANALI KOHLER, ABDOMEN 9 RADIOLOGY J W/[place] [address] [facility] [place] CESAR, ABDOMEN 9 RADIOLOGY LUIS G W/CONTRAS T MATERIAL CT PELVIS 56964 [facility] [place] CESAR, 9 RADIOLOGY LUIS G W/CONTRAS T MATERIAL RADEX 77420 SHARON TERES[place], SPINE 8 MEDICAL CASEY LUMBOSACR IMAGING AL ASSOCIATE MINIMUM 4 [place] [address] RADHA GARCIA TRACT UPR 8 [facility] W/SM INT INC INC W/[place] [address] SHARON TERESA, UPR W/WO 8 MEDICAL CASEY GLUCOSE IMAGING W/SM ASSOCIATE [place] [address] RADHA GARCIA AMYLASE 8 [facility] INC INC URNLS DIP 84909 RADHA GARCIA 8 [facility] STICK/TAB INC INC [place] [address] RADHA GARCIA THER 8 [facility] PROPH/DX INC INC 1ST >1 HR BLOOD 21413 RADHA GARCIA COUNT 8 [facility] COMPLETE INC INC AUTO&AUTO DIFRNTL WBC AMBULANCE A0429 [facility] SERVICE 8 AMBULANCE AMBULANCE BLS SERVICE SERVICE EMERGENCY TRANSPORT GROUND A0425 [facility] MILEAGE 8 AMBULANCE AMBULANCE PER [place] [address] RADHA GARCIA LIPASE 8 [facility] INC INC COMPREHEN 48198 RADHA GARCIA SIVE 8 [facility] METABOLIC INC INC PANEL INJECTION J2270 [facility] MORPHINE 8 Y Y SULFATE [facility] [place] [address] [place] [address] [place] DODSON, ABDOMEN 8 MEDICAL PAUL[place] W/CONTRAS SERV T FOUNDATIO MATERIAL CT PELVIS 97280 [facility] 8 Y Y W/[facility] T MATERIAL INJECTION J2405 [facility] 8 [facility] [place] 1 [place] [address] [facility] INFUSION 8 Y Y HYDRATION [facility] INITIAL 31 MIN-1 HR THER 89630 [facility] PROPH/DX 8 Y Y NJX [facility] SEQL IV PUSH SBST/DRUG SUBCUTANE 46629 [facility] OUS 8 Y Y INFUSION [facility] EACH ADDITIONA L IV PUSH RADEX ABD 21585 [facility] COMPL 8 Y Y AQT ABD [facility] W/S/E/D VIEWS 1 VIEW CH URNLS DIP 05300 [facility] 8 Y Y STICK/TAB [facility] LET REAGENT AUTO MICROSCOP Y INJECTION J3010 [facility] FENTANYL 8 Y Y CITRATE [facility] 0.1 MG BLOOD 67907 [facility] COUNT 8 Y Y COMPLETE [facility] AUTOMATED GONADOTRO 25162 [facility] PIN 8 Y Y CHORIONIC [facility] QUALITATI VE THER 77789 [facility] PROPH/DX 8 Y Y NJX IV [facility] PUSH 1ST SBST/DRUG COMPREHEN 56625 [facility] SIVE 8 Y Y METABOLIC [facility] PANEL COLLECTIO 19846 [facility] N VENOUS 8 Y Y BLOOD [facility] VENIPUNCT URE RINGERS J7120 [facility] LACTATE 8 Y Y INFUSION [facility] UP TO 1000 CC COMPREHEN 37526 RADHA GARCIA SIVE 8 [facility] METABOLIC INC INC PANEL BLOOD 36139 RADHA GARCIA COUNT 8 [facility] COMPLETE INC INC AUTO&[place] [address] RADHA GARCIA LIPASE 8 [facility] [place] [address] RADHA GARCIA THER 8 [facility] PROPH/DX INC INC 1ST >1 HR RADEX ABD 29205 SHARON MOORE COMPL 8 MEDICAL CASEY AQT ABD IMAGING W/S/E/D ASSOCIATE VIEWS 1 [place] [address] RADHA GARCIA AMYLASE 8 [place] [address] RADHA GARCIA AMYLASE 8 [facility] INC INC RADEX ABD 63951 RADHA GARCIA COMPL 8 [facility] AQT ABD INC INC W/S/E/D VIEWS 1 VIEW CH URNLS DIP 94680 RADHA GARCIA 8 [facility] STICK/TAB INC INC LET REAGENT AUTO MICROSCOP Y BILIRUBIN 87125 RADHA GARCIA DIRECT 8 [facility] INC INC BLOOD 09345 RADHA GARCIA COUNT 8 [facility] COMPLETE INC INC AUTO&[place] [address] RADHA GARCIA LIPASE 8 [facility] INC INC COMPREHEN 92700 RADHA GARCIA SIVE 8 [facility] [place] [address] RADHA GARCIA ABDOMEN 8 [facility] W/CONTRAS INC INC T MATERIAL 3D 34184 RADHA GARCIA RENDERING 8 [facility] INC INC W/INTERP& POSTPROC DIFF WORK STATION CT PELVIS 05447 [place] HAR[place] 8 [facility] [place] P W/CONTRAS IMAGING T ASSOCIATE MATERIAL S BLOOD 48716 RADHA GARCIA COUNT 8 [facility] COMPLETE INC INC AUTO&AUTO DIFRNTL WBC C-REACTIV 72653 RADHA GARCIA E PROTEIN 8 [facility] HIGH INC INC SENSITIVI TY BLOOD 30277 RADHA GARCIA COUNT 8 [facility] COMPLETE INC INC AUTO&AUTO DIFRNTL WBC BASIC 25167 RADHA GARCIA METABOLIC 8 [facility] PANEL INC INC CALCIUM TOTAL CYANOCOBA 68437 [facility] JAKOB 8 [facility] VITAMIN INC INC B-12 RADIOLOGI 50348 [facility] C EXAM 8 [facility] CHEST 2 INC INC VIEWS FRONTAL&L ATERAL IAADI 52375 [facility] INFLUENZA 8 [facility] B VIRUS INC INC IAADI 03655 [facility] G[facility] INFFLUENZ 8 [facility] [place] [address] [facility] G[facility] LIPASE 8 [facility] INC INC COMPREHEN 13770 [facility] G[facility] SIVE 8 [facility] [address] [facility] THER 8 [facility] PROPH/DX INC INC 1ST >1 [place] [address] [facility] G[facility] AMYLASE 8 [facility] INC INC RADEX ABD 00655 [facility] HARLEEN, COMPL 8 [facility] [place] P AQT ABD IMAGING W/S/E/D ASSOCIATE VIEWS 1 S VIEW CH CULTURE 30543 [facility] BACTERIAL 8 [facility] INC INC QUANTTATI VE COLONY COUNT URINE URNLS DIP 33542 [facility] 8 [facility] STICK/TAB INC INC LET REAGENT AUTO MICROSCOP Y BLOOD 42016 [facility] COUNT 8 [facility] COMPLETE INC INC AUTO&AUTO DIFRNTL WBC RADEX 75687 [place], SPINE 8 [facility] CERVICAL IMAGING 6 OR MORE ASSOCIATE VIEWS S RADEX 66322 [place], SPINE 8 [facility] THORACIC IMAGING 3 VIEWS ASSOCIATE S RADIOLOGI 82705 [facility] EXAM 8 [facility] CHEST 2 IMAGING VIEWS ASSOCIATE FRONTAL&L S ATERAL URNLS DIP 61591 [facility] 8 [facility] STICK/TAB INC INC LET REAGENT AUTO MICROSCOP Y CT PELVIS 39959 [place], W/O 8 MEDICAL CASE[facility] CONTRAST [place] [address] [facility]IA AMYLASE 8 [facility] INC INC RADEX 26711 [place], SMALL 8 MEDICAL CASEY INTESTINE IMAGING ASSOCIATE W/[place] [address] [place], ABDOMEN 8 MEDICAL CASEY W/O IMAGING CONTRAST ASSOCIATE MATERIAL S 3D 88067 [place], RENDERING 8 MEDICAL CASEY IMAGING W/INTERP& ASSOCIATE POST[place] [address] [facility] LIPASE 8 [facility] INC INC BLOOD 58217 [facility] COUNT 8 [facility] COMPLETE INC INC AUTO&AUTO DIFRNTL WBC COMPREHEN 00955 [facility] G[facility] SIVE 8 [facility] [place] [address] PATHOLOGY PATHOLOGY SURG 8 & & PATHOLOGY CYTOLOGY CYTOLOGY LAB LAB GROSS&ISAAC ROSCOPIC EXAM CLOSED 4525 [facility]IA [ENDOSCOP 8 [facility] IC] INC INC BIOPSY OF LARGE INTESTINE COLONOSCO 54931 [facility] G[facility] PY 8 [facility] W/BIOPSY INC INC SINGLE/MU LTIPLE ANES 51184 [facility], LOWER 8 ANESTH REY F INTESTINE OF [facility] [place] [address] [facility]IA THER 8 [facility] PROPH/DX INC INC 1ST >1 HR Encounters Encounter Start End Date Code Location Performer Type Date HOSPITAL [facility] - [facility] NEW 20 INC MINUTES EMERGENCY 33505 SHAILESH ANDINO 7 7 EMERGENCY DEPARTMEN T VISIT PHYSICIAN HIGH/URGE S NT SEVERITY EMERGENCY 94212 [facility] 7 7 [facility] DEPARTMEN INC T VISIT LOW/MODER SEVERITY HOSPITAL [facility] - 7 7 [facility] OUTPATIEN INC T EMERGENCY 42083 MILAGROS MULTANI 7 7 PHYSICIAN JR DEPARTMEN S, [facility] T VISIT MODERATE SEVERITY [facility] - [facility] OUTPAT[facility] HOSPITALS EMERGENCY 51865 [facility] 7 7 [place] DEPARTMEN PHYSICIAN T VISIT S MODERATE SEVERITY EMERGENCY 45701 7 7 [facility] DEPARTMEN E T VISIT HOSPITALS LOW/MODER SEVERITY OFFICE 15031 MCDANIELS OUTPATIEN 7 7 [facility] T VISIT 15 PHYSICIAN MINUTES S OFFICE 23245 [facility] OUTPATI 7 7 [facility] T VISIT 10 PHYSICIAN MINUTES S [facility]OSP[facility] - 7 7 [facility] OUTPATIEN E T HOSPITALS EMERGENCY 73057 ANALI BYERS 7 7 MEDICAL DEPARTMEN SERV T VISIT FOUNDATIO HIGH/URGE N NT SEVERITY EMERGENCY 42422 ANALI YOUNG 7 7 MEDICAL DEPARTMEN SERV T VISIT FOUNDATIO LIMITED/M N INOR PROB OFFICE [id number] MCDANIELS OUTPATIEN 7 7 SHARRON T VISIT 25 PHYSICIAN MINUTES S OFFICE [address] ST JESSICA OUTPATIEN 7 7 SHARRON T VISIT 25 PHYSICIAN MINUTES S EMERGENCY 39287 [facility] CHRISTIAN DEPT 7 7 EMERGENCY VISIT HIGH PHYSICIAN SEVERITY& S THREAT [facility] EMERGENCY 82664 [facility] ADERS 7 7 EMERGENCY DEPARTMEN T VISIT PHYSICIAN HIGH/URGE S NT SEVERITY EMERGENCY 58253 [facility] KRYSTYNAIER DEPT 7 7 EMERGENCY VISIT HIGH PHYSICIAN SEVERITY& S THREAT [facility] EMERGENCY 76308 [facility] MEGHA DEPT 7 7 EMERGENCY VISIT HIGH PHYSICIAN SEVERITY& S THREAT [email or web address] 7 7 SHARRON OUTPATIEN [facility] OFFICE 06866 [facility] 7 7 SHARRON T VISIT 25 PHYSICIAN MINUTES [facility] - 7 7 SHARRON OUTPATIEN T [email or web address] 7 7 SHARRON OUTPATIEN [facility] EMERGENCY 42836 SHAILESH POSADAS 6 6 EMERGENCY N DEPARTMEN T VISIT PHYSICIAN HIGH/URGE S NT SEVERITY OFFICE 56506 NIRUJOGI OUTPATIEN 6 6 SHARRON GELACIO T VISIT 25 PHYSICIAN MINUTES S PERIODIC 03438 MCDANIELS PREVENTIV 6 6 SHARRON E MED EST PATIENT PHYSICIAN 40-66YRS [facility] - OTHER 6 6 SHARRON MED CTR 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 OFFICE [address] ST JESSICA ZAH CONSULTAT 6 6 SHARRON SAMUELS NEW/ESTAB PHYSICIAN PATIENT S 60 MIN OFFICE 39827 RAHEEL CONSULTAT 6 6 SHARRON BRIZUELA ION NEW/ESTAB PHYSICIAN PATIENT S 60 MIN EMERGENCY 87386 SHAILESH FAN-M DEPT 6 6 EMERGENCY AXWELL VISIT REJI HIGH PHYSICIAN SEVERITY& S THREAT [facility] RADHA - 6 6 [facility] HOSPITAL RADHA - 6 6 [facility] T EMERGENCY 42060 MILAGROS SWEENEY [address] [facility] T VISIT HIGH/URGE NT SEVERITY EMERGENCY 10644 [facility] 6 6 [facility] T VISIT LOW/MODER SEVERITY OFFICE 19365 [facility] DIEGO ALVARADO 6 6 PHYSICIAN T NEW 20 GROUP MINUTES EMERGENCY 18643 RAD[facility] 6 6 [facility] T VISIT HIGH/URGE NT SEVERITY HOSPITAL RADHA - 6 6 [facility] OUTPATIEN [facility] RADHA - 6 6 [facility] OUTPATI[facility] T OFFICE 32048 [facility] SHAUN ALVARADO 6 6 PHYSICIAN STONE T VISIT S GROUP PA-C MUKUND 25 MINUTES HOSPITAL RADHA - 6 6 [facility] RAD[facility] - 6 6 [facility] T EMERGENCY 33651 [facility] 6 6 [facility] T VISIT LIMITED/M INOR PROB EMERGENCY 93830 MILAGROS STEWART [address] [facility] T VISIT MODERATE SEVERITY EMERGENCY 21293 RAD[facility] 6 6 [facility] T VISIT LOW/MODER SEVERITY EMERGENCY 00394 MILAGROS HERNANDEZ 6 6 PHYSICIAN DEPARTMEN S, [facility] T VISIT HIGH/URGE NT SEVERITY HOSPITAL RAD[facility] - 6 6 [facility] T OFFICE 93336 [facility] OUTPATIEN 6 6 PHYSICIAN T VISIT S GROUP 10 MINUTES OFFICE 54670 [facility] DUNN OUTPATIEN 6 6 PHYSICIAN STONE T VISIT S GROUP ZUHAIR DUVAL 10 MINUTES HOSPITAL [facility] - 6 6 [facility] T EMERGENCY 61392 MILAGROS ESCUDERO [address] [facility] DEPARTMEN S, PLLC T VISIT MODERATE SEVERITY EMERGENCY 66359 RAD[facility] 6 6 [facility] T VISIT LOW/MODER SEVERITY HOSPITAL RAD[facility] - 6 6 [facility] OUTPATIEN [facility] RADHA [facility] 6 6 [facility] T EMERGENCY 41385 MILAGROS HERRERA 6 6 PHYSICIAN DEPARTMEN S, [facility] T VISIT MODERATE SEVERITY EMERGENCY 20648 RAD[facility] 6 6 [facility] T VISIT LIMITED/M INOR PROB HOSPITAL RADHA - 6 6 [facility] T EMERGENCY 51247 RAD[facility] 6 6 [facility] T VISIT LOW/MODER SEVERITY EMERGENCY 90085 MILAGROS ESCUDERO [address] [facility]. [facility] S, [facility] T VISIT MODERATE SEVERITY HOSPITAL RAD[facility] - 6 6 [facility] RADHA - 6 6 [facility] RAD[facility] - 5 5 [facility] RADHA - 5 5 [facility] T OFFICE 06847 [facility] 5 MEDICAL KERLINE T VISIT SERV 25 FOUNDATIO MINUTES N EMERGENCY 53319 RAD[facility] 5 5 [facility] DEPARTMEN INC T VISIT LOW/MODER SEVERITY HOSPITAL [facility] - 5 5 [facility] OUT[facility]EN INC T EMERGENCY 71243 MILAGROS ESCUDERO DEPT 5 5 PHYSICIAN ISAAC VISIT S, [facility] HIGH SEVERITY& THREAT FUNCJ EMERGENCY 85631 RAD[facility] 5 5 [facility] DEPARTMEN INC T VISIT HIGH/URGE NT SEVERITY HOSPITAL [facility] - 5 5 [facility] OUT[facility]EN INC T EMERGENCY 30359 MILAGROS MULTANI DEPT 5 5 PHYSICIAN JR CRESPOZ VISIT S, [facility] HIGH SEVERITY& THREAT FUNJ OFFICE 68136 [facility] OUT[facility] 5 5 PHYSICIAN ISAAC T VISIT S GROUP 10 MINUTES EMERGENCY 36699 [facility] 5 5 [facility] DEPARTMEN INC T VISIT LOW/MODER SEVERITY HOSPITAL [facility] - 5 5 [facility] OUT[facility]EN INC T EMERGENCY 65883 MILAGROS ESCUDERO 5 5 PHYSICIAN ISAAC DEPARTMEN S, [facility] T VISIT MODERATE SEVERITY OFFICE 05261 [facility] OUTPATIEN 5 5 PHYSICIAN ISAAC T VISIT S GROUP 25 MINUTES EMERGENCY 19329 MILAGROS ESCALANTE 5 5 PHYSICIAN KETAN DEPARTMEN S, [facility] T VISIT MODERATE SEVERITY OFFICE 18326 [facility] OUTPATIEN 5 5 PHYSICIAN ISAAC T VISIT S GROUP 15 MINUTES HOSPITAL RAD[facility] - 5 5 [facility] OUT[facility]EN INC T EMERGENCY 38280 AREN HERRERA 5 5 DEPARTMEN T VISIT HIGH/URGE NT SEVERITY EMERGENCY 20599 SUSHILA Abdalla 5 5 DEPARTMEN T VISIT MODERATE SEVERITY OFFICE 23422 [facility] OUT[facility] 5 5 PHYSICIAN ISAAC T VISIT S GROUP 25 MINUTES HOSPITAL [facility] - 5 5 [facility] INC T EMERGENCY 08541 AREN [facility] 5 5 [facility] T VISIT HIGH/URGE NT SEVERITY EMERGENCY 23094 YEIMI MULLEREY 5 5 ISAAC ISAAC [facility] T VISIT MODERATE SEVERITY OFFICE 64504 ANALI [place] ANT OUTPATIEN 5 5 MEDICAL T VISIT SERV 25 FOUNDATIO MINUTES HOSPITAL RAD[facility] - 5 5 [facility] INC T OFFICE 91635 [facility] OUTPATIEN 5 5 PHYSICIAN T VISIT S GROUP 15 MINUTES HOSPITAL [facility] - 5 5 [facility] INC T OFFICE 60818 [facility] YEIMI OUTPATIEN 5 5 PHYSICIAN ISAAC T VISIT S GROUP 15 MINUTES OFFICE 44135 [facility] YEIMI OUTPATIEN 5 5 PHYSICIAN ISAAC T VISIT S GROUP 15 MINUTES HOSPITAL [facility] - 5 5 [facility] T [facility]PITAL [facility] - 4 4 [facility]EN INC T EMERGENCY 35520 RADHA GUSMAN 4 4 [facility] T VISIT P LOW/MODER SEVERITY EMERGENCY 67164 RADHA JEAN BAPTISTE 4 4 [facility] T VISIT P HIGH/URGE NT SEVERITY EMERGENCY 86332 RADHA DE JESUS 4 4 [facility] T VISIT P HIGH/URGE NT SEVERITY EMERGENCY 44800 RAD[facility] 4 4 [facility] T VISIT HIGH/URGE NT SEVERITY HOSPITAL [facility] [place] 4 [facility] OUTPAT[facility]EN INC T EMERGENCY 30658 RADHA GUSMAN 4 4 [facility] T VISIT P LOW/MODER SEVERITY HOSPITAL RAD[facility] - 4 4 [facility] OUTPATIEN INC T EMERGENCY 03608 [facility] VORKPOR 4 4 [facility] DEPARTMEN T VISIT HIGH/URGE NT SEVERITY OFFICE 78488 [place] DIALLO OUTPATIEN [address] T VISIT SERV 25 FOUNDATIO MINUTES HOSPITAL [facility] - 4 4 [facility] 52688 MARLI HORNE DEPT 4 4 VISIT HIGH SEVERITY& THREAT [facility] - 4 4 [facility] OUTPATIEN INC T OFFICE 80769 ANALI [place] ANT OUTPATIEN 4 4 MEDICAL T VISIT SERV 15 FOUNDATIO MINUTES N OFFICE 79861 [facility] 4 4 PHYSICIAN ISAAC T NEW 30 S GROUP [facility] RADHA - 4 4 [facility] INC T EMERGENCY 44227 VORKPOR VORKPOR DEPT 4 4 [facility] VISIT HIGH SEVERITY& THREAT FUNCJ EMERGENCY 10879 [facility] VORKPOR DEPT 4 4 [facility] VISIT HIGH SEVERITY& THREAT FUNCJ EMERGENCY 51526 VORKPOR VORKPOR 4 4 [facility] T VISIT HIGH/URGE NT SEVERITY EMERGENCY 78460 VORKPOR VORKPOR 4 4 [facility] DEPARTMEN T VISIT HIGH/URGE NT SEVERITY EMERGENCY 49138 ALFARIS ALFARIS 4 4 [facility] DEPARTMEN T VISIT HIGH/URGE NT SEVERITY EMERGENCY 80722 KIT KIT 4 4 IMT IMT DEPARTMEN T VISIT MODERATE SEVERITY EMERGENCY 14631 YEIMI ESCUDERO 4 4 ISAAC ISAAC DEPARTMEN T VISIT MODERATE SEVERITY EMERGENCY 49605 YEIMI ESCUDERO DEPT 4 4 ISAAC ISAAC VISIT HIGH SEVERITY& THREAT FUNCJ EMERGENCY 41382 [facility] 4 4 CONRAD KILO DEPARTMEN EMERGENCY T VISIT PHYS HIGH/URGE NT SEVERITY EMERGENCY 61831 [facility] 4 4 CONRAD III JUAN ANTONIO DEPARTMEN EMERGENCY T VISIT PHYS MODERATE SEVERITY OFFICE 52602 RIGOBERTO ALVARAOD 4 4 LEE ANN LEE ANN T VISIT 15 MINUTES Emergency LIZETTE Mendoza MD (ER) 4 20:36 4 22:44 [facility] EMERGENCY 27488 MARLI RAPP DEPT 4 4 VISIT HIGH SEVERITY& THREAT FUNJ Emergency LIZETTE MCNAMARA MD (ER) 4 18:43 4 20:06 [facility] EMERGENCY 12533 [place] 4 4 [facility] DEPARTMEN T VISIT HIGH/URGE NT SEVERITY OFFICE 94419 YARA ANT YARA ANT SHAQUILLEPATIBROOKE 3 3 T VISIT 15 MINUTES OFFICE 11458 RIGOBERTO ALVARADO 3 3 LEE ANN LEE ANN T VISIT 15 MINUTES Emergency LIZETTE Escudero MD (ER) 3 17:45 3 18:59 [facility] EMERGENCY 17673 YEIMI ESCUDERO 3 3 ISAAC ISAAC DEPARTMEN T VISIT MODERATE SEVERITY Emergency LIZETTE Mendoza MD (ER) 3 16:38 3 17:11 [facility] EMERGENCY 84116 MARLI RAPP 3 3 DEPARTMEN T VISIT MODERATE SEVERITY Emergency LIZETTE Escudero MD (ER) 3 20:44 3 21:15 [facility] OFFICE 31904 RIOGBERTO ALVARADO 3 3 LEE ANN LEE ANN T VISIT 15 MINUTES Emergency LIZETTE Mendoza MD (ER) 3 14:40 3 16:39 [facility] EMERGENCY 28321 LIAM RAPP 3 3 EMERGENCY DEPARTMEN SERVICES T VISIT HIGH/URGE NT SEVERITY HOSPITAL UNIVERSIT - 3 3 [facility] Emergency LIZETTE DIEZ (ER) 3 16:51 3 18:46 [facility] EMERGENCY 62699 CHARY DIEZ 3 3 JAM JAM DEPARTMEN T VISIT HIGH/URGE NT SEVERITY EMERGENCY 13214 [facility] 3 3 [facility] DEPART[facility] INC T VISIT LOW/MODER SEVERITY HOSPITAL RAD[facility] - 3 3 [facility] OUTPATIEN INC T Emergency LIZETTE Escudero MD (ER) 3 21:28 3 22:25 [facility] EMERGENCY 37770 RADHA 3 3 [facility] DEPARTMEN INC T VISIT LOW/MODER SEVERITY EMERGENCY 73763 YEIMI ESCUDERO DEPT [address] [facility] ISAAC VISIT HIGH SEVERITY& THREAT [facility] RADHA - 3 3 [facility] OUTPATIEN INC T Emergency LIZETTE DIEZ (ER) 3 14:18 3 16:42 Gald[facility] RADHA - 3 3 [facility] OUTPATIEN INC T EMERGENCY 06081 RADHA 3 3 [facility] DEPARTMEN INC T VISIT LOW/MODER SEVERITY EMERGENCY 94998 CHARY DIEZ 3 3 JAM JAM DEPARTMEN T VISIT HIGH/URGE NT SEVERITY Emergency LIZETTE Escudero MD (ER) 3 21:00 3 22:57 [facility] RADHA - 3 3 [facility] OUTPATIEN INC T EMERGENCY 92383 RAD[facility] 3 3 [facility] DEPARTMEN INC T VISIT MODERATE SEVERITY EMERGENCY 69653 YEIMI ESCUDERO 3 3 ISAAC ISAAC DEPARTMEN T VISIT HIGH/URGE NT SEVERITY HOSPITAL RADHA - 3 3 [facility]IENT [facility] RADHA - 3 3 [facility] OUTPATIEN [facility] OFFICE 58208 WENDY NGUYEN CONSULTAT 3 3 BOONE SAMUELS NEW/ESTAB PATIENT 60 MIN EMERGENCY 18068 RADHA 3 3 [facility] T VISIT MODERATE SEVERITY EMERGENCY 88028 MICHAEL RODRIGUEZ DEPT 3 3 III JUAN ANTONIO III JUAN ANTONIO VISIT HIGH SEVERITY& THREAT [facility] RADHA - 3 3 [facility] OUTPATIEN [facility] OFFICE 77727 YARA ANT YARA ANT OUTPATIEN 3 3 T VISIT 15 MINUTES EMERGENCY 22892 RAD[facility] 2 2 [facility] T VISIT HIGH/URGE NT SEVERITY EMERGENCY 98007 LIAM RAPP DEPT 2 2 EMERGENCY VISIT SERVICES HIGH SEVERITY& THREAT [facility] RADHA - 2 2 [facility] OUTPATIEN [facility] OFFICE 99018 RIGOBERTO FRANKLIN OUTPATIEN 2 2 [place]EE [place] T VISIT 15 MINUTES OFFICE 92087 YARA ANT YARA ANT OUTPATIEN 2 2 T VISIT 25 MINUTES HOSPITAL RADHA - 2 2 [facility] OUTPATIEN [facility] RADHA - 2 2 [facility] OUTPATIEN [facility] EMERGENCY 77723 RAD[facility] 2 2 [facility] T VISIT MODERATE SEVERITY EMERGENCY 03137 YEIMI ESCUDERO 2 2 [facility] T VISIT HIGH/URGE NT SEVERITY HOSPITAL RADHA - 2 2 [facility] OUTPATIEN [facility] EMERGENCY 14515 YEIMI ESCUDERO 2 2 [facility] T VISIT HIGH/URGE NT SEVERITY EMERGENCY 31591 [facility] 2 2 [facility] DEPARTMEN INC T VISIT LOW/MODER SEVERITY HOSPITAL RAD[facility] - 2 2 [facility] INC T HOSPITAL RADHA - 2 2 [facility] OUTPAT[facility] INC T OFFICE 21037 YARA [place] ANT OUTPATIEN 2 2 T VISIT 25 MINUTES HOSPITAL RAD[facility] - 2 2 [facility] INC T HOSPITAL RADHA - 2 2 [facility] T EMERGENCY 59184 RADHA 2 2 [facility] DEPARTMEN INC T VISIT HIGH/URGE NT SEVERITY EMERGENCY 77370 [facility] 2 2 [facility] DEPARTMEN INC T VISIT HIGH/URGE NT SEVERITY EMERGENCY 13486 MICHAEL RODRIGUEZ DEPT 2 2 III JUAN ANTONIO III JUAN ANTONIO VISIT HIGH SEVERITY& THREAT FUN [facility]OSP[facility] RAD[facility] - 2 2 [facility] T EMERGENCY 04184 LIAM ESCUDERO DEPT 2 2 EMERGENCY ISAAC VISIT SERVICES HIGH SEVERITY& THREAT FUNCJ EMERGENCY 95640 RAD[facility] 2 2 [facility] DEPARTMEN INC T VISIT MODERATE SEVERITY HOSPITAL RAD[facility] - 2 2 [facility] T OFFICE 84758 RIGOBERTO FRANKLIN OUTPATIEN 2 2 LEE ANN LEE ANN T VISIT 15 MINUTES EMERGENCY 72284 LIAM ESCUDERO 2 2 EMERGENCY ISAAC DEPARTMEN SERVICES T VISIT HIGH/URGE NT SEVERITY HOSPITAL RADHA - 2 2 [facility] T EMERGENCY 29680 RAD[facility] 2 2 [facility] DEPARTMEN INC T VISIT MODERATE SEVERITY EMERGENCY 41080 RDAHA 2 2 [facility] DEPARTMEN INC T VISIT LIMITED/M INOR PROB EMERGENCY 64742 LIAM ESCUDERO 2 2 EMERGENCY [facility] SERVICES T VISIT HIGH/URGE NT SEVERITY HOSPITAL RADHA - 2 2 [facility] OUTPATIEN INC T EMERGENCY 07140 RADHA 2 2 [facility] DEPARTMEN INC T VISIT MODERATE SEVERITY HOSPITAL RADHA - 2 2 [facility] T EMERGENCY 08524 LIAM ESCUDERO 2 2 EMERGENCY [facility] SERVICES T VISIT HIGH/URGE NT SEVERITY OFFICE 31121 ABHINAVEFRAIN RIGOBERTO OUTPATIEN 2 2 LEE ANN LEE ANN T VISIT 15 MINUTES EMERGENCY 15675 [facility] 2 2 [facility] T VISIT LOW/MODER SEVERITY EMERGENCY 86400 LIAM RODRIGUEZ 2 2 EMERGENCY III [facility] EMERGENCY DEPARTMENT SERVICES T VISIT HIGH/URGE NT SEVERITY HOSPITAL RADHA - 2 2 [facility] T OFFICE 32090 ABHINAVEFRAIN RIGOBERTO OUTPATIEN 2 2 LEE ANN LEE ANN T VISIT 15 MINUTES HOSPITAL RAD[facility] - 2 2 [facility] T [facility]OSPITAL RADHA [facility] 1 1 [facility] T EMERGENCY 26914 RAD[facility] 1 1 [facility] HIGH/URGE NT SEVERITY EMERGENCY 21777 MICHAEL RODRIGUEZ DEPT 1 1 III JUAN ANTONIO III JUAN ANTONIO VISIT HIGH SEVERITY& THREAT [facility] OFFICE 51333 YARA [place] ANT OUTPATIEN 1 1 T VISIT 25 MINUTES HOSPITAL RADHA - 1 1 [facility] OUTPAT[facility] INC T EMERGENCY 41403 RADHA 1 1 [facility] DEPARTMEN INC T VISIT HIGH/URGE NT SEVERITY EMERGENCY 87319 LIAM SPRAGUE DEPT 1 1 EMERGENCY VISIT SERVICES HIGH SEVERITY& THREAT FUNJ [facility]OSP[facility] - 1 1 [facility] OUTPATIEN INC T OFFICE 18874 RIGOBERTO FRANKLIN OUTPATIEN 1 1 LEE ANN LEE ANN T VISIT 15 MINUTES HOSPITAL [facility] - 1 1 [facility] OUTPATIEN INC T EMERGENCY 47394 LIAM TRINH 1 1 EMERGENCY DEPARTMEN SERVICES T VISIT HIGH/URGE NT SEVERITY EMERGENCY 02878 [facility] 1 1 [facility] DEPARTMEN INC T VISIT LOW/MODER SEVERITY [facility]OSPITAL [facility] - 1 1 [facility] OUTPATIEN INC T EMERGENCY 55484 [facility] 1 1 [facility] DEPARTMEN INC T VISIT LOW/MODER SEVERITY EMERGENCY 80111 LAIM ESCUDERO 1 1 EMERGENCY ISAAC DEPARTMEN SERVICES T VISIT HIGH/URGE NT SEVERITY HOSPITAL [facility] - 1 1 [facility] OUTPATIEN INC T EMERGENCY 87447 [facility] 1 1 [facility] DEPARTMEN INC T VISIT MODERATE SEVERITY [facility]OSPITAL [facility] - 1 1 [facility] OUTPAT[facility]EN INC T EMERGENCY 25823 LIAM SPRAGUE 1 1 EMERGENCY DEPARTMEN SERVICES T VISIT HIGH/URGE NT SEVERITY HOSPITAL [facility] - 1 1 [facility] OUTPATIEN INC T OFFICE 41952 ANALI TO OUTPATIEN 1 1 MEDICAL T VISIT SERV 25 FOUNDATIO MINUTES HOSPITAL RAD[facility] - 1 1 [facility] OUTPATIEN INC T EMERGENCY 93818 LIAM RODRIGUEZ DEPT 1 1 EMERGENCY III JUAN ANTONIO VISIT SERVICES HIGH SEVERITY& THREAT FUNJ EMERGENCY 25273 [facility] 1 1 [facility] DEPARTMEN INC T VISIT HIGH/URGE NT SEVERITY HOSPITAL [facility] - 1 1 [facility] OUTPATIEN INC T EMERGENCY 47418 [facility] 1 1 [facility] DEPARTMEN INC T VISIT HIGH/URGE NT SEVERITY EMERGENCY 71856 LIAM ESCUDERO DEPT 1 1 EMERGENCY ISAAC VISIT SERVICES HIGH SEVERITY& THREAT FUNCJ EMERGENCY 60734 LIAM TRINH 1 1 EMERGENCY DEPARTMEN SERVICES T VISIT HIGH/URGE NT SEVERITY HOSPITAL [facility] - 1 1 [facility] OUTPATIEN INC T EMERGENCY 86977 [facility] 1 1 [facility] DEPARTMEN INC T VISIT MODERATE SEVERITY OFFICE 44828 ABHINAVEFRAIN RIGOBERTO ALVARADO 1 1 LEE ANN LEE ANN T VISIT 15 MINUTES OFFICE 52501 ABHINAVEFRAIN RIGOBERTO ALVARADO 1 1 LEE ANN LEE ANN T VISIT 15 MINUTES EMERGENCY 12631 LIAM RODRIGUEZ DEPT 1 1 EMERGENCY III JUAN ANTONIO VISIT SERVICES HIGH SEVERITY& THREAT FUNJ EMERGENCY 40661 [facility] 1 1 [facility] DEPARTMEN INC T VISIT HIGH/URGE NT SEVERITY HOSPITAL [facility] - 1 1 [facility] OUTPATIEN INC T OFFICE 25346 RAD[facility] GARCIA OUTPATIEN [address] RADHA - 1 1 [facility] OUTPAT[facility]EN INC T EMERGENCY 09384 LIAM ESCUDERO DEPT 1 1 EMERGENCY ISAAC VISIT SERVICES HIGH SEVERITY& THREAT [facility] RADHA - 1 1 [facility] OUTPATIEN INC T EMERGENCY 46732 [facility] 1 1 [facility] DEPARTMEN INC T VISIT LOW/MODER SEVERITY OFFICE 66187 ANALI TO OUTPATIEN 0 0 MEDICAL T VISIT SERV 25 FOUNDATIO MINUTES EMERGENCY 52839 LIAM ESCUDERO 0 0 EMERGENCY ISAAC DEPARTMEN SERVICES T VISIT HIGH/URGE NT SEVERITY OFFICE 02772 RIGOBERTO FRANKLIN OUTPATIEN 0 0 LEE ANN LEE ANN T VISIT 15 MINUTES OFFICE 06967 RIGOBERTO FRANKLIN OUTPATIEN 0 0 LEE ANN LEE ANN T VISIT 15 MINUTES HOSPITAL [facility] - 0 0 [facility] OUTPAT[facility]EN INC T EMERGENCY 14206 [facility] 0 0 [facility] DEPARTMEN INC T VISIT LIMITED/M INOR PROB EMERGENCY 45655 LIAM ESCUDERO [address] [facility] DEPARTMEN SERVICES T VISIT HIGH/URGE NT SEVERITY OFFICE 84725 RIGOBERTO FRANKLIN OUTPATIEN 0 0 LEE ANN LEE ANN T VISIT 15 MINUTES OFFICE 14814 RIGOBERTO FRANKLIN OUTPATIEN 0 0 LEE ANN LEE ANN T VISIT 15 MINUTES HOSPITAL [facility] - 0 0 [facility] OUTPATIEN INC T OFFICE 77034 [facility] OUT[facility] 0 0 MEDICAL T VISIT SERV 25 FOUNDATIO MINUTES EMERGENCY 59530 LIAM ESCUDERO [address] [facility] DEPARTMEN SERVICES T VISIT HIGH/URGE NT SEVERITY [facility]OSP[facility] 0 0 [facility] INC T EMERGENCY 36732 [facility] 0 0 [facility] DEPARTMEN INC T VISIT LIMITED/M INOR PROB EMERGENCY 79923 LIAM ESCUDERO, 0 0 EMERGENCY [facility] DEPARTMEN SERVICES T VISIT HIGH/URGE ASSOCIATE NT S SEVERITY [facility]OSP[facility] - 0 0 [facility] OUT[facility]IEN INC T EMERGENCY [id number] [facility] 0 0 [facility] DEPARTMEN INC T VISIT LIMITED/M INOR PROB OFFICE 58039 RIGOBERTO FRANKLIN OUTPATIEN 0 0 MAIRA Bernal T VISIT 15 MINUTES OFFICE 69437 RIGOBERTO FRANKLIN OUTPATIEN 0 0 MAIRA Bernal T VISIT 15 MINUTES [facility]OSP[facility] 0 0 [facility] OUT[facility] INC T EMERGENCY 63059 LIAM ESCUDERO, 0 0 EMERGENCY SARAH S DEPARTMEN SERVICES T VISIT HIGH/URGE ASSOCIATE NT S SEVERITY EMERGENCY 82959 [facility] 0 0 [facility] DEPARTMEN INC T VISIT LOW/MODER SEVERITY OFFICE 40979 RIGOBERTO FRANKLIN OUTPATIEN 0 0 MAIRA Bernal T VISIT 15 MINUTES OFFICE 06875 JENNY MORALES 0 0 MEDICAL [place] T VISIT SERV 25 FOUNDATIO MINUTES OFFICE 91389 RIGOBERTO FRANKLIN OUTPATIEN 0 0 MAIRA Bernal T VISIT 15 MINUTES [facility]OSPITAL [facility] - 0 0 [facility] OUT[facility]IEN INC T EMERGENCY 51432 LIAM RODRIGUEZ DEPT 0 0 EMERGENCY III, VISIT SERVICES REY HIGH SEVERITY& ASSOCIATE THREAT S [facility] - 0 0 [facility] OUTPATIEN INC T EMERGENCY 30170 LIAM RODRIGUEZ DEPT 0 0 EMERGENCY III, VISIT SERVICES REY HIGH SEVERITY& ASSOCIATE THREAT S [facility] EMERGENCY 87931 [facility] 0 0 [facility] DEPARTMEN INC T VISIT MODERATE SEVERITY OFFICE 98301 RIGOBERTO FRANKLIN OUTPATIEN 0 0 MAIRA Bernal T VISIT 15 MINUTES [facility]OSPITAL [facility] - 0 0 [facility] OUTPAT[facility] INC T EMERGENCY 37149 [facility] 0 0 [facility] DEPARTMEN INC T VISIT MODERATE SEVERITY [facility] - 9 9 [facility] INC T OFFICE 00739 RIGOBERTO FRANKLIN OUTPATIEN 9 9 MAIRA Bernal T VISIT 15 MINUTES OFFICE 34282 JENNY MORALES 9 9 MEDICAL [place] T VISIT SERV 15 FOUNDATIO MINUTES OFFICE 56870 PHYSICIAN JENNY BLOUNT 9 9 Brayden Bernal T NEW 30 SERVICES MINUTES PSC OFFICE 66815 RIGOBERTO FRANKLIN OUTPATIEN 9 9 MAIRA Bernal T VISIT 15 MINUTES EMERGENCY 78536 LIAM ESCUDERO, 9 9 [facility] VISIT MODERATE ASSOCIATE SEVERITY S [facility]OSP[facility] - 9 9 [facility] OUT[facility] INC T OFFICE 74217 JENNY MORALES 9 9 MEDICAL [place] T VISIT SERV 25 FOUNDATIO MINUTES OFFICE 60503 RIGOBERTO FRANKLIN OUTPATIEN 9 9 MAIRA Bernal T VISIT 15 MINUTES OFFICE 05481 RIGOBERTO FRANKLIN OUTPATIEN 9 9 MAIRA Bernal T VISIT 15 MINUTES HOSPITAL [facility] - 9 9 [facility] INC T EMERGENCY 90925 LIAM OAKLEY, 9 9 EMERGENCY [facility] DEPARTMEN SERVICES T VISIT HIGH/URGE ASSOCIATE NT S SEVERITY EMERGENCY 69965 [facility] 9 9 [facility] DEPARTMEN INC T VISIT LIMITED/M INOR PROB HOSPITAL [facility] - 9 9 [facility] INC T EMERGENCY 58711 LIAM ESCUDERO, 9 9 [facility] VISIT MODERATE ASSOCIATE SEVERITY S EMERGENCY 48154 [facility] 9 9 [facility] DEPARTMEN INC T VISIT LOW/MODER SEVERITY OFFICE 17741 RIGOBERTO FRANKLIN OUTPATIEN 9 9 MAIRA Bernal T VISIT 15 MINUTES OFFICE 53136 SIENNA EL OUTPATIEN 9 9 [facility] T VISIT 25 MINUTES [facility]OSPITAL [facility] - 9 9 [facility] INC T OFFICE 93196 RIGOBERTO FRANKLIN OUTPATIEN 9 9 MAIRA Bernal T VISIT 15 MINUTES [facility]OSPITAL [facility] - 9 9 [facility] INC T OFFICE 43512 SIENNA EL CONSULTAT 9 9 KP SAMUELS NEW/ESTAB PATIENT 80 MIN OFFICE 47599 JENNY MORALES 9 9 PETRA SIMPSON T VISIT SERV 25 FOUNDATIO MINUTES [facility]OSPITAL [facility] - 9 9 [facility] INC T EMERGENCY 92327 LIAM FISHMAN, 9 9 EMERGENCY [facility] DEPARTMEN SERVICES O T VISIT HIGH/URGE ASSOCIATE NT S SEVERITY HOSPITAL [facility] - 9 9 [facility] INC T EMERGENCY 87039 [facility] 9 9 [facility] DEPART[facility] T VISIT LIMITED/M INOR PROB OFFICE 89490 RIGOBERTO FRANKLIN OUTPATIEN 9 9 MAIRA Bernal T VISIT 15 MINUTES HOSPITAL [facility] - 9 9 [facility] T EMERGENCY 96165 [facility] 9 9 [facility] DEPARTMEN INC T VISIT LOW/MODER SEVERITY EMERGENCY 22673 LIAM ESCUDERO, 9 9 EMERGENCY SARAH Owen DEPARTMEN SERVICES T VISIT MODERATE ASSOCIATE SEVERITY S OFFICE 40885 RIGOBERTO FRANKLIN OUTPATIEN 9 9 MAIRA Bernal T VISIT 15 MINUTES EMERGENCY 10678 [facility], 9 9 [facility] SARAH Ocampo [facility] EM[facility]GENC[facility] T VISIT PHYS INC HIGH/URGE NT SEVERITY EMERGENCY 71317 LIAM CARRION, DEPT 9 9 EMERGENCY PRIYANKA VISIT SERVICES HIGH SEVERITY& ASSOCIATE THREAT S FUNCJ EMERGENCY 86623 [facility] 9 9 [facility] DEPARTMEN INC T VISIT MODERATE SEVERITY HOSPITAL [facility] - 9 9 [facility] T OFFICE 89109 RIGOBERTO FRANKLIN OUTPATIEN 9 9 MAIRA Bernal T VISIT 15 MINUTES HOSPITAL [facility] - 9 9 [facility] T OFFICE 96106 JENNY MORALES 9 9 PETRA SIMPSON T VISIT SERV 25 FOUNDATIO MINUTES OFFICE 39044 RIGOBERTO FRANKLIN OUTPATIEN 9 9 MAIRA Bernal T VISIT 15 MINUTES HOSPITAL [facility] - 9 9 [facility] T [facility] - 9 9 [facility] T EMERGENCY 92683 [facility] 9 9 [facility] DEPARTMEN INC T VISIT LOW/MODER SEVERITY EMERGENCY 09738 LIAM OAKLEY, 9 9 EMERGENCY [facility] DEPARTMEN SERVICES T VISIT MODERATE ASSOCIATE SEVERITY S OFFICE 52941 RIGOBERTO FRANKLIN OUTPATIEN 9 9 MAIRA Bernal T VISIT 15 MINUTES HOSPITAL [facility]ON - 9 9 [facility] EMERGENCY 91010 [facility], DEPT 9 9 CONRAD [place] VISIT EMERGENCY HIGH PHYS INC SEVERITY& THREAT FUNCJ OFFICE 14298 RIGOBERTO FRANKLIN OUTPATIEN 9 9 MAIRA Bernal T VISIT 15 MINUTES EMERGENCY 45886 [facility] 9 9 [facility] DEPARTMEN INC T VISIT LOW/MODER SEVERITY EMERGENCY 91676 LIAM ESCUDERO, 9 9 EMERGENCY [facility] DEPARTMEN SERVICES T VISIT HIGH/URGE ASSOCIATE NT S SEVERITY HOSPITAL [facility] - 9 9 [facility] OUTPATIEN INC T OFFICE 84298 RIGOBERTO FRANKLIN OUTPATIEN 9 9 MAIRA Bernal T VISIT 15 MINUTES EMERGENCY 31874 [facility] 9 9 [facility] DEPARTMEN INC T VISIT HIGH/URGE NT SEVERITY HOSPITAL [facility] - 9 9 [facility] OUT[facility]EN INC T EMERGENCY 29223 LIAM OAKLEY DEPT 9 9 EMERGENCY JUDAH P VISIT SERVICES HIGH SEVERITY& ASSOCIATE THREAT S FUNJ OFFICE 36724 RIGOBERTO FRANKLIN OUTPATIEN 9 9 MAIRA Bernal T VISIT 15 MINUTES EMERGENCY 61418 [facility] 9 9 [facility] DEPARTMEN INC T VISIT LOW/MODER SEVERITY HOSPITAL [facility] - 9 9 [facility] OUTPAT[facility]EN INC T EMERGENCY 81705 JOSE ESCUDERO, 9 9 [facility] T VISIT ON HIGH/URGE NT SEVERITY OFFICE 91256 [facility], CONSULTAT 9 9 [facility] NEW/ESTAB PATIENT [place] [address] [facility] EMERGENCY 25483 MARLEN GERMAN, DEPT 9 9 [facility] [place] VISIT EMERGENCY HIGH PHYS INC SEVERITY& THREAT FUNJ OFFICE 18218 RIGOBERTO FRANKLIN OUTPATIEN 9 9 MAIRA Bernal T VISIT 15 MINUTES HOSPITAL [facility] - 9 9 [facility] INC T EMERGENCY 03545 JOSE ESCUDERO, 9 9 [facility] T VISIT ON LOW/MODER SEVERITY EMERGENCY 21823 [facility] 9 9 [facility] DEPARTMEN INC T VISIT LIMITED/M INOR PROB OFFICE 55752 RIGOBERTO FRANKLIN OUTPATIEN 9 9 MAIRA Bernal T VISIT 15 MINUTES HOSPITAL [facility] - 9 9 [facility] OUTPATIEN INC T EMERGENCY 39729 [facility] 9 9 [facility] DEPARTMEN INC T VISIT LOW/MODER SEVERITY EMERGENCY 68576 JOSE ESCUDERO, 9 9 [facility] T VISIT ON MODERATE SEVERITY OFFICE 39319 RIGOBERTO FRANKLIN OUTPATIEN 9 9 MAIRA Bernal T VISIT 15 MINUTES EMERGENCY 83951 [facility], DEPT 9 9 CONRAD AMANDA Wolfe VISIT EMERGENCY HIGH PHYS INC SEVERITY& THREAT FUNJ EMERGENCY 29157 JOSE ESCUDERO, 9 9 [facility] T VISIT ON MODERATE SEVERITY EMERGENCY 15937 RAD[facility] 9 9 [facility] DEPARTMEN INC T VISIT LIMITED/M INOR PROB HOSPITAL [facility] - 9 9 [facility] OUTPATIEN INC T OFFICE 41867 RIGOBERTO FRANKLIN OUTPATIEN 8 8 MAIRA RAO W T VISIT 15 MINUTES OFFICE 89565 RIGOBERTO FRANKLIN OUTPATIEN 8 8 MAIRA RAO W T VISIT 15 MINUTES OFFICE 37102 JENNY MORALES 8 8 PETRA SIMPSON T VISIT SERV 15 FOUNDATIO MINUTES HOSPITAL [facility] - 8 8 [facility] OUTPATIEN INC T OFFICE 03964 RIGOBERTO FRANKLIN OUTPATIEN 8 8 MAIRA RAO W T VISIT 15 MINUTES OFFICE 22604 RIGOBERTO FRANKLIN OUTPATIEN 8 8 MAIRA RAO W T VISIT 15 MINUTES OFFICE 01300 WENDY NGUYEN OUTPATIEN 8 8 , CALEB ELLIS T VISIT 15 MINUTES HOSPITAL [facility] - 8 8 [facility]PATIEN INC T OFFICE 98741 [facility]UD [facility] CONSULTAT 8 8 , CALEB ELLIS ION NEW/ESTAB PATIENT 60 MIN OFFICE 37710 RIGOBERTO FRANKLIN OUTPATIEN 8 8 MAIRA Bernal MAIRA W T VISIT 15 MINUTES EMERGENCY 04984 [facility] 8 8 [facility] DEPARTMEN INC T VISIT HIGH/URGE NT SEVERITY HOSPITAL [facility] - 8 8 [facility] T OFFICE 57839 [facility] T VISIT SERV 25 FOUNDATIO MINUTES OFFICE 32377 RIGOBERTO FRANKLIN OUTPATIEN 8 8 MAIRA Bernal T VISIT 15 MINUTES OFFICE 60112 RIGOBERTO FRANKLIN OUTPATIEN 8 8 MAIRA Bernal T VISIT 15 MINUTES HOSPITAL [facility] - 8 8 [facility] T EMERGENCY 88869 RAD[facility] 8 8 [facility] DEPARTMEN [facility] T VISIT LIMITED/M INOR PROB OFFICE 00873 RIGOBERTO FRANKLIN OUTPATIEN 8 8 MAIRA Bernal T VISIT 15 MINUTES OFFICE 53182 JENNY MORALES 8 8 [facility] [place] T VISIT SERV 25 FOUNDATIO MINUTES EMERGENCY 55243 [facility] DEPT 8 8 Y VISIT HOSPITAL HIGH SEVERITY& THREAT FUN EMERGENCY 85521 ANALI RYAN, 8 8 [facility] T DEPARTMEN SERV T VISIT FOUNDATIO HIGH/URGE NT SEVERITY HOSPITAL [facility] - 8 8 Y OUTPATI HOSPITAL T OFFICE 62601 RIGOBERTO FRANKLIN OUTPATIEN 8 8 MAIRA Bernal T VISIT 15 MINUTES EMERGENCY 25646 [facility] 8 8 [facility] DEPARTMEN INC T VISIT LIMITED/M INOR PROB HOSPITAL [facility] - 8 8 [facility] T HOSPITAL RAD[facility] - 8 8 [facility] T [facility]OSPITAL [facility] 8 8 [facility] T EMERGENCY 60128 [facility] 8 8 [facility] MOD[facility]ATE SEVERITY [facility] - 8 8 [facility] INC T EMERGENCY 53742 [facility] 8 8 [facility] HIGH/URGE NT SEVERITY HOSPITAL [facility] - 8 8 [facility] OUTPATIEN INC T EMERGENCY 25702 JOSE CARRION, 8 8 [facility] T VISIT ON HIGH/URGE NT SEVERITY OFFICE 67277 [facility] 8 8 [facility] [place] T VISIT SERV 15 FOUNDATIO MINUTES OFFICE 99443 [facility] MAIRA Bernal T VISIT 15 MINUTES HOSPITAL [facility] - 8 8 [facility] OUTPATIEN INC T EMERGENCY 32228 [facility] 8 8 [facility] T VISIT LIMITED/M INOR PROB HOSPITAL RAD[facility] - 8 8 [facility] 73946 RAD[facility] 8 8 [facility] T VISIT LOW/MODER SEVERITY OFFICE 27401 [facility] 8 8 [facility] [place] T VISIT SERV 25 FOUNDATIO MINUTES HOSPITAL RAD[facility] - 8 8 [facility] OUTPAT[facility] INC T HOSPITAL RAD[facility] 8 8 [facility] T EMERGENCY 41321 RAD[facility] 8 8 [facility] T VISIT LOW/MODER SEVERITY OFFICE 02945 WENDY NGUYEN CONSULTAT 8 8 , CALEB ELLIS NEW/ESTAB PATIENT 30 MIN HOSPITAL [facility] - 8 8 [facility] INC T EMERGENCY 46618 [facility] 8 8 [facility] LOW/MODER SEVERITY [facility]OSPITAL [facility] 8 8 [facility] OUT[facility] INC T EMERGENCY 09219 [facility] 8 8 [facility] DEPARTMEN INC T VISIT LOW/MODER SEVERITY OFFICE 23763 RIGOBERTO FRANKLIN OUTPATIEN 8 8 MAIRA Bernal T VISIT 15 MINUTES EMERGENCY 97245 [facility] 8 8 [facility] DEPARTMEN [facility] T VISIT LIMITED/M INOR PROB HOSPITAL [facility] - 8 8 [facility] T OFFICE 68038 [facility] 8 8 [place] [place] T [facility]ISIT 25 MINUTES HOSPITAL [facility] 8 8 [facility] RADHA - 8 8 [facility] T EMERGENCY 15702 [facility] 8 8 [facility] T VISIT LOW/MODER SEVERITY OFFICE 13258 JENNY MORALES 8 8 [facility] T VISIT SERV 15 FOUNDATIO MINUTES EMERGENCY 60326 [facility] 8 8 [facility] T VISIT LIMITED/M INOR PROB HOSPITAL RAD[facility] - 8 8 [facility] T OFFICE 02723 RIGOBERTO FRANKLIN OUTPATIEN 8 8 MAIRA Bernal T NEW 30 MINUTES EMERGENCY 33983 [facility] 8 8 [facility] T VISIT LOW/MODER SEVERITY EMERGENCY 72017 RADHA GILLIAM 8 8 [facility] T VISIT PROF SERV MODERATE SEVERITY HOSPITAL RAD[facility] - 8 8 [facility] T EMERGENCY 34134 RADHA GILLIAM 8 8 [facility] T VISIT PROF SERV MODERATE SEVERITY HOSPITAL [facility] - 8 8 [facility] INC T EMERGENCY 24461 [facility] 8 8 [facility] DEPARTMEN INC T VISIT LOW/MODER SEVERITY HOSPITAL [facility] - 8 8 [facility] OUT[facility] INC T EMERGENCY 44187 [facility] 8 8 [facility] DEPARTMEN INC T VISIT LOW/MODER SEVERITY OFFICE 74986 JENNY MORALES 8 8 PETRA [place] T VISIT SERV 25 FOUNDATIO MINUTES HOSPITAL [facility] - 8 8 [facility] INC T EMERGENCY 57246 [facility] 8 8 [facility] DEPARTMEN INC T VISIT MODERATE SEVERITY HOSPITAL [facility] - 8 8 [facility] OUT[facility] INC T
--- OUTSIDE RECORDS SUMMARY | 2016-12-30 18:33 | External Medical Summary Rpt | CCD ---
Author Author , SINTIA PATRICIO Address Unknown Phone [email or web address] Providers Care Pipeline Operator Name Role Phone ADERS, ADERS Unavailable Unavailable ALFARIS MOH, ALFARIS Unavailable Unavailable MOH ALFARIS MOH, ALFARIS Unavailable Unavailable MOH Falguni KOHLER, Unavailable Unavailable Falguni KOHLER ARNOLD LEE ANN, ARNOLD Unavailable Unavailable LEE ANN ARNOLD LEE ANN, ARNOLD Unavailable Unavailable LEE ANN ARNOLD, MAIRA W, Unavailable Unavailable ABHINAVOLD, MAIRA W ANDERS BOATENG, ANDERS Unavailable Unavailable BRO DIALLO TER, DIALLO Unavailable Unavailable TER BEINEKE SANDRA, BEINEKE Unavailable Unavailable SANDRA SUSHILA L, SUSHILA L Unavailable Unavailable SUSHILA L, SUHSILA L Unavailable Unavailable BESSON REJI, BESSON Unavailable Unavailable REJI BESSON REJI, BESSON Unavailable Unavailable REJI HANSEN ALL, HANSEN ALL Unavailable Unavailable YARA ANT, YARA ANT Unavailable Unavailable YARA, CALVIN, Unavailable Unavailable YARA, CALVIN BOTTIGGI ANT, Unavailable Unavailable BOTTIGGI ANT BYERS, BYERS Unavailable Unavailable GARFIELD III, GARFIELD Unavailable Unavailable III BRANDSER, BRANDSER Unavailable Unavailable SARAH DODSON, Unavailable Unavailable SARAH DODSON [facility] Unavailable Unavailable SERVICE, [facility] Unavailable Unavailable SERVICE, [facility] JUDAH SHELTON BUCK, Unavailable Unavailable JUDAH Abdalla BURMARIETON, Unavailable Unavailable BURMARIETON JIAN SPRAGUE, Unavailable Unavailable JIAN SPRAGUE, Unavailable Unavailable [...] ROM CASEY MOORE, Unavailable Unavailable TERESA, CASEY LEVIN PA-C Unavailable Unavailable SHAUN DUVAL PA-C HYDROGRAPHICAL TECHNICAL OFFICER [facility] Unavailable Unavailable RESPONC, HYDROGRAPHICAL TECHNICAL OFFICER [facility]ON[facility] BERONICA KERLINE, STEPHEN Unavailable Unavailable ALLISON KERLINE SALAZAR NEAL, SALAZAR NEAL Unavailable Unavailable DONOVITZ JAM, Unavailable Unavailable DONOVITZ JAM DONOVITZ JAM, Unavailable Unavailable DONOVITZ JAM [facility] [place] [facility] [place] ELGUMATI, ELGUMATI Unavailable Unavailable SINA, SINA Unavailable Unavailable FALLUJI, NEZAR M, Unavailable Unavailable FALLUJI, NEZAR M FAVIER, FAVIER Unavailable Unavailable FERTIKH, FERTIKH Unavailable Unavailable OAKLEY, JUDAH P, Unavailable Unavailable OAKLEY, JUDAH P RANGEL, , RANGEL, Unavailable Unavailable JR MULTANI, JR ELZ, Unavailable Unavailable MULTANI, JR ELZ YEIMI ISAAC, YEIMI Unavailable Unavailable ISAAC YEIMI ISAAC, YEIMI Unavailable Unavailable ISAAC SARAH JALLOH S, Unavailable Unavailable SARAH JALLOH S KP BLOUNT, Unavailable Unavailable KP BLOUNT GORHAM Unavailable Unavailable LEON ISAAC, LEON ISAAC Unavailable Unavailable LEON ISAAC, LEON ISAAC Unavailable Unavailable DORMAN CELESTINE, DORMAN CELESTINE Unavailable Unavailable CESAR, LUIS G, Unavailable Unavailable CESAR, LUIS G [facility] Unavailable Unavailable CENTER, [facility] Unavailable Unavailable CENTER, [facility] Unavailable Unavailable INC, [facility] Unavailable Unavailable HOSPITAL P, [facility] P HEEB, HEEB Unavailable Unavailable GARCIA RA, GARCIA RA Unavailable Unavailable GARCIA RA, GARCIA RA Unavailable Unavailable [facility], Unavailable Unavailable [facility], Unavailable Unavailable [facility] YOUNGBLOOD MARY, YOUNGBLOOD MARY Unavailable Unavailable KIT IMT, KIT Unavailable Unavailable IMT [facility] Unavailable Unavailable [facility], [facility] KLEIMEYER, KLEIMEYER Unavailable Unavailable KLEIMEYER KERLINE, Unavailable Unavailable KLEIMEYER KERLINE KONDURI, KONDURI Unavailable Unavailable TYRELL, TYRELL Unavailable Unavailable FAN-APOLINAR REJI, Unavailable Unavailable [facility] TASHIA JR DWI, TASHIA Unavailable Unavailable JR DWI SIA, SIA Unavailable Unavailable BORIS KETAN, BORIS Unavailable Unavailable KETAN [facility] Unavailable Unavailable SERVICES, [facility] UZMA HERNANDEZ, ZUMA Unavailable Unavailable MARY ROMANO, Unavailable Unavailable MCKEMIE JR JUAN ANTONIO MCKEMIE [...] Unavailable Unavailable [facility] Unavailable Unavailable OF NOT, [facility] RAQUEL GARCÍA Unavailable Unavailable RENUSCH SAMM, RENUSCH Unavailable Unavailable SAMM [id number], Unavailable Unavailable [id number] Unavailable Unavailable [id number] [address] [id number], [facility] [id number] [address] [id number] SADEK MOH, SADEK MOH Unavailable [...] Unavailable Unavailable EQUIPME, [facility] Unavailable Unavailable EMERGENCY PHYS, [facility] Unavailable Unavailable [facility] Unavailable [facility], Unavailable Unavailable [facility] Unavailable Unavailable HYDROGRAPHICAL TECHNICAL OFFICER , 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 [facility] Unavailable Unavailable PHYSICIANS, [facility] WILFRED COOPER, Unavailable Unavailable WILFRED COOPER SETH T, Unavailable Unavailable ADRIAN RYAN WILLIAM F, Unavailable Unavailable REY GERMAN SULLIVAN Unavailable Unavailable TRUE, TRUE Unavailable Unavailable YOUNG VIDAL Unavailable Unavailable TOM, TOM Unavailable Unavailable [facility] Unavailable Unavailable [facility], [facility], Unavailable Unavailable [facility] VORKPOR NEAL, VORKPOR Unavailable Unavailable NEAL VORKPOR NELA, VORKPOR Unavailable Unavailable NEAL [facility], Unavailable Unavailable [facility] WALKER FOR, WALKER Unavailable Unavailable FOR WEHRMAN III JUAN ANTONIO, Unavailable Unavailable WEHRMAN III JUAN ANTONIO WEHRMAN III, REY, Unavailable Unavailable WEHRMAN III, REY MARLI MAY Unavailable Unavailable MARLI MAY Unavailable Unavailable MARLI HORNE, MARLI HORNE Unavailable [...] M542 CERVICALGIA 11-19-2016 [facility] K57150 CUTANEOUS 10-11-2016 [facility] ABSCESS OF EMERGENCY ABDOMINAL PHYSICIANS WALL J449 CHRONIC 09-15-2016 [facility] OBSTRUCTIVE [facility] PULMONARY INC DISEASE UNS D225DCV SPRAIN 09-15-2016 [facility] LIGAMENTS PHYSICIANS, LUMBAR PLLC SPINE INITIAL ENCOUNTER Z720 TOBACCO USE 09-15-2016 [facility] B40547 OTHER 09-10-2016 [facility] M545 LOW BACK 09-07-2016 ST PAIN [facility] Z681 BODY MASS 09-07-2016 ST INDEX 19.9 [facility] OR LESS PHYSICIANS ADULT R208 OTHER 08-29-2016 ST DISTURBANCE [facility] S OF SKIN PHYSICIANS SENSATION G8918 OTHER ACUTE 08-24-2016 [facility] RAL PAIN R109 UNSPECIFIED 08-24-2016 [facility] PAIN HOSPITALS Z711 PERS FEARED 08-24-2016 [facility] COMPLAINT [facility] WHOM NO DX IS MADE T31999 OTHER 08-24-2016 [facility] SERV [facility]EDU [facility] RAL STATES Z09 ENC F/U 08-17-2016 ST EXAM AFTR [facility] CMPL TX OTH PHYSICIANS THAN INOCENCIO NEOPLSM K5080 CROHNS 08-16-2016 ST DISEASE [facility] SMALL & PHYSICIANS LARGE INTESTINE W/O COMP E46 UNSPECIFIED 08-14-2016 [facility] PROTEIN-DAVID PHYSICIANS ORIE MALNUTRITIO N N390 URINARY 08-14-2016 [facility] TRACT [facility]ERGENCY INFECTION PHYSICIANS SITE NOT SPECIFIED R0781 PLEURODYNIA 08-14-2016 [facility] R0789 OTHER CHEST 08-14-2016 [facility] PAIN EMERGENCY PHYSICIANS R079 CHEST PAIN 08-14-2016 [facility] UNSPECIFIED EMERGENCY PHYSICIANS R1084 GENERALIZED 08-06-2016 [facility] ABDOMINAL EMERGENCY PAIN PHYSICIANS R1013 EPIGASTRIC 07-19-2016 [facility] R110 NAUSEA 07-19-2016 [facility] PHYSICIANS Q191ZUK INFECTION 07-01-2016 [facility]LLOW[facility] INITIAL ENCOUNTER J432 CENTRILOBUL 06-12-2016 AR [facility] EMPHYSEMA PHYSICIANS R918 OTHER 06-12-2016 NONSPECIFIC [facility] ABNORMAL PHYSICIANS FINDING OF LUNG FIELD J441 CHRONIC 06-06-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 DZ W/EXACERBAT ION J9601 ACUTE 06-06-2016 PATIENT RESPIRATORY AIDS INC FAILURE WITH HYPOXIA K432 INCISIONAL 06-01-2016 HERNIA [facility] WITHOUT PHYSICIANS OBSTRUCTION /GANGRENE J9690 RESP FAIL 05-30-2016 [facility] UNS UNS [facility] W/HYPOXIA/H YPERCAPNIA R0602 SHORTNESS 05-26-2016 [facility] BREATH [facility] R0902 HYPOXEMIA 05-26-2016 [facility] R29470 MIGRAINE 04-04-2016 ST UNS NOT [facility] INTRACT [...] HISTORY [facility] OTHER PHYSICIANS DISEASES DIGESTIVE SYSTEM 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 04-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 H30975 MIGRAINE 02-25-2016 [facility] W/O AURA EMERGENCY NOT INTRACT PHYSICIANS W/O STAT MIGRAIN K469 UNS 02-25-2016 [facility] ABDOMINAL EMERGENCY HERNIA W/O PHYSICIANS OBSTRUCTION OR GANGRENE X32144 ENCOUNTER 02-22-2016 ST APRON OPERATOR EXAM [facility] GENERAL RTN PHYSICIANS W/O ABNORMAL FIND K5090 CROHNS 01-25-2016 ST DISEASE UNS [facility] WITHOUT PHYSICIANS COMPLICATIO NS K5900 CONSTIPATIO 01-11-2016 [facility] N EMERGENCY UNSPECIFIED PHYSICIANS R1031 RIGHT LOWER 01-11-2016 [facility]IN [facility] J209 ACUTE 11-18-2015 [facility] BRONCHITIS PHYSICIANS, UNSPECIFIED PLLC R05 COUGH 11-18-2015 [facility] J40 BRONCHITIS 10-28-2015 [facility] NOT PHYSICIAN SPECIFIED GROUP ACUTE OR CHRONIC H21339 CROHNS 09-15-2015 [facility] DISEASE UNS [facility] W/OTHER INC COMPLICATIO N R1110 VOMITING 09-15-2015 [facility] UNSPECIFIED PHYSICIANS, PLLC M5430 SCIATICA 09-01-2015 [facility] UNSPECIFIED [facility] SIDE INC R51 HEADACHE 08-29-2015 [facility] M5441 LUMBAGO 08-04-2015 [facility] WITH PHYSICIANS, SCIATICA PLLC RIGHT SIDE R42 DIZZINESS 07-29-2015 [facility] GIDDINESS SERVICE K5000 CROHNS 06-14-2015 [facility] DISEASE [facility] SMALL INC INTESTINE W/O COMP G8929 OTHER 04-30-2015 [facility] CHRONIC [facility] PAIN INC R1030 LOWER 04-30-2015 [facility] ABDOMINAL [facility] PAIN INC UNSPECIFIED R1032 LEFT LOWER 04-30-2015 [facility] J029 ACUTE 04-04-2015 [facility] PHARYNGITIS PHYSICIANS, PLLC UNSPECIFIED E538 DEFICIENCY 02-23-2015 [facility] OF OTHER SERV SPECIFIED B FOUNDATION GROUP VITAMINS D547HTO STRAIN 02-21-2015 [facility] MUSCLE FASC PHYSICIANS, & TENDON PLLC NECK LEVL INIT ENC J329 CHRONIC 01-31-2015 [facility] SINUSITIS PHYSICIANS UNSPECIFIED GROUP W50402G STRN UNS 01-19-2015 [facility] M&T SHLDR PHYSICIANS, UP ARM LEVL PLLC LT ARM INIT ENC 496 CHRONIC 12-01-2014 [facility] NEC 490 BRONCHITIS 11-30-2014 [facility] NOT PHYSICIANS SPECIFIED GROUP ACUTE OR CHRONIC 83249 WHEEZING 11-30-2014 [facility] PHYS[facility]ANS GROUP 4659 ACUTE URIS 11-24-2014 [facility] OF PHYSICIANS, UNSPECIFIED PLLC SITE 7862 COUGH 11-24-2014 [facility] 82172 CHEST PAIN 11-24-2014 [facility]PEC[facility] 7869 OTH 11-24-2014 [facility] SYMPTOMS [facility]ICAL INVOLVING IMAGING ASS RESPIRATORY SYSTEM&CHES T 5559 REGIONAL 11-08-2014 [facility] ENTERITIS PHYSICIANS OF GROUP UNSPECIFIED SITE 4553 EXTERNAL 11-03-2014 [facility] HEMORRHOIDS SERV WITHOUT FOUNDATION MENTION COMP 06512 ATROPHIC 11-03-2014 [facility] WITHOUT MENTION OF HEMORRHAGE 98625 ULCERATION 11-03-2014 [facility] OF [facility] INTESTINE INC 52898 DIARRHEA 11-03-2014 [facility] 04327 ABDOMINAL 11-03-2014 [facility], SERV UNSPECIFIED FOUNDATION SITE 07109 ABDOMINAL 11-03-2014 [facility] PAIN, MEM [facility] GENERALIZED INC 49811 OBSTRUCTIVE 10-10-2014 [facility] CHRONIC BRONCHITIS WITHOUT EXACERBAT 7840 HEADACHE 10-05-2014 SUSHILA L 2409 GOITER, 08-31-2014 [facility] UNSPECIFIED PHYSICIANS GROUP 85677 ABDOMINAL 08-17-2014 YEIMI ISAAC PAIN OTHER SPECIFIED SITE 2662 OTHER 08-16-2014 [facility] B-COMPLEX SERV DEFICIENCIE FOUNDATION S 2689 UNSPECIFIED 08-16-2014 [facility] VITAMIN D SERV DEFICIENCY FOUNDATION 5550 REGIONAL 08-16-2014 [facility] ENTERITIS [facility] OF SMALL INC INTESTINE 5552 RGN 08-16-2014 [facility] ENTERITIS SERV SMALL FOUNDATION INTESTINE W/LG INTESTINE 15137 HEMATURIA 07-07-2014 [facility] UNSPECIFIED [facility] 3674 PRESBYOPIA 06-25-2014 [facility] ANG 2859 UNSPECIFIED 04-13-2014 [facility] ANEMIA PHYSICIANS GROUP 37845 OTHER 04-13-2014 [facility] MALAISE AND PHYSICIANS FATIGUE GROUP 39676 OTHER 03-08-2014 [facility] NONSPECIFIC MEDICAL ABNORMAL IMAGING ASS FINDING OF LUNG FIELD 1320 PEDICULUS 02-21-2014 [facility] CAPITIS PHYSICIANS GROUP 486 PNEUMONIA, 02-21-2014 [facility] ORGANISM PHYSICIANS UNSPECIFIED GROUP V5869 LONG-TERM 02-21-2014 [facility] (CURRENT) [facility] USE OF HOSPITAL P OTHER MEDICATIONS 05829 SHORTNESS 02-20-2014 [facility] OF BREATH [facility] 47132 MIGRAINE 02-12-2014 [facility] UNSP W/O [facility] INTRACT W/O HOSPITAL P STATUS MIGRAINOSUS 90215 UNSPECIFIED 01-23-2014 [facility] NEAL CONSTIPATIO N 20293 ABDOMINAL 01-23-2014 [facility] NEAL PAIN, LEFT LOWER QUADRANT 93282 NAUSEA 01-11-2014 [facility] ALONE SERV [facility] 2768 HYPOPOTASSE 12-15-2013 [facility] INC 11581 ABDOMINAL 12-10-2013 [facility] NEAL PAIN RIGHT LOWER QUADRANT 5589 OTH&UNSPEC 12-06-2013 [facility] NEAL NONINFECTIO US GASTROENTER ITIS&COLITI S 48666 VOMITING 12-06-2013 [facility] NEAL ALONE 7242 LUMBAGO 11-10-2013 [facility] NEAL 7245 UNSPECIFIED 11-10-2013 [facility] 23770 OTHER 11-10-2013 [facility] 56457 CONTUSION 10-29-2013 [facility] BACK E8888 OTHER FALL 10-29-2013 [facility] MOH E8889 UNSPECIFIED 10-29-2013 [facility] 15963 UNSPEC 09-20-2013 [facility] KAYA W/O MENTION OBST/GANGRE N 62508 DEHYDRATION 08-25-2013 [facility] 8471 THORACIC 08-03-2013 [facility] SPR[facility] AND N EMERGENCY STRAIN PHYS E8859 FALL FROM 08-03-2013 [facility] OTHER N EMERGENCY SLIPPING PHYS TRIPPING OR STUMBLING E9271 OVEREXERTIO 07-17-2013 [facility] N FROM N EMERGENCY PROLONGED PHYS STATIC POSITION 27640 VARIANTS 04-27-2013 ARNOLD LEE ANN MIGRAINE NEC INTRACT MIGRAINE W/O SM 1330 SCABIES 04-05-2013 MAR[facility] RAPP V4589 OTHER 03-21-2013 [facility] POSTSURGICA ROM L STATUS OTHER 57991 SPASM OF 02-24-2013 ARNOLD LEE ANN MUSCLE 72535 OTHER ACUTE 01-02-2013 [facility] RAPP PAIN 9654 POISONING 10-11-2012 JYOTI CHARLES BY AROMATIC JUAN ANTONIO ANALGESICS NEC E8490 PLACE OF 10-11-2012 JYOTI CHARLES OCCURRENCE, JUAN ANTONIO HOME E8504 ACCIDENTAL 10-11-2012 JYOTI CHARLES POISONING JUAN ANTONIO BY AROMATIC ANALGESICS NEC 96193 [facility] COMP 08-22-2012 VILL[facility] DUE OT CELESTINE IMPLANT&INT ERNAL DEVICE NEC 41852 INF&INFLAM 08-22-2012 [facility] INTRL PROSTH DEVC IMPL&GFT 89976 OT COMPS 08-22-2012 MOR[facility] JUAN ANTONIO DUE OT INTRL PROSTH DEVICE IMPL&GFT V8801 ACQUIRED 08-22-2012 [facility] BOTH CERVIX AND UTERUS 6822 CELLULITIS 07-23-2012 [facility] AND ABSCESS [facility]OS[facility] OF TRUNK INC 75349 DISRUPTION 07-23-2012 [facility] OF EXTERNAL JAM OPERATION SURGICAL WOUND 98322 OTHER 07-23-2012 [facility] POSTOPERATI [facility] VE INC INFECTION NEC V5831 ENCOUNTER 07-12-2012 [facility] CHANGE/MAKAYLA JAM ANGELA SURGICAL WOUND DRESSING 7804 DIZZINESS 06-30-2012 [facility] AND [facility] GIDDINESS INC 58967 NAUSEA WITH 06-30-2012 [facility] VOMITING [facility] INC 5119 UNSPECIFIED 04-10-2012 [facility] PLEURAL ROM EFFUSION 5180 PULMONARY 04-08-2012 [facility] COLLAPSE ROM 5183 PULMONARY 04-08-2012 [facility] EOSINOPHILI ROM A 5199 UNSPECIFIED 04-07-2012 [facility] DISEASE OF ROM RESPIRATORY SYSTEM V550 ATTENTION 04-07-2012 [facility] TO ROM TRACHEOSTOM Y 67819 OTHER 04-04-2012 [facility] SPECIFIED BOONE INTESTINAL OBSTRUCTION 5680 PERITONEAL 04-04-2012 LEON ISAAC ADHESIONS 81255 OTHER 04-04-2012 [facility] RESPIRATORY [facility] INC COMPLICATIO NS 5990 URINARY 02-08-2012 [facility] INFECTION SERVICES SITE NOT SPECIFIED 95413 REFLUX 10-31-2011 [facility] ESOPHAGITIS [facility] INC 16166 UNS 10-31-2011 [facility] GASTRITIS&G [facility]OS[facility] ASTRODUODIT INC IS W/O MENTION HEMORR 5533 DIAPHRAGMAT 10-31-2011 [facility] KAYA W/O [facility]OS[facility] MENTION INC OBSTRUCTION /GANGREN 7291 UNSPECIFIED 10-29-2011 BESSON REJI MYALGIA AND MYOSITIS 9779 POISONING 10-29-2011 YEIMI GRAY UNSPECIFIED DRUG/MEDICI NAL SUBSTANCE V720 EXAMINATION 09-18-2011 GARCIA RA OF EYES AND VISION 3384 CHRONIC 05-18-2011 RIGOBERTO NANCE PAIN SYNDROME 02046 PAIN IN 04-05-2011 [facility] JOINT [facility] PELVIC INC REGION AND THIGH 66233 PAINFUL 04-05-2011 [facility] RESPIRATION [facility] INC 98659 UNSPECIFIED 12-15-2010 [facility] VIRAL EMERGENCY INFECTION SERVICES IN CCE & UNS SITE 09572 LEUKOCYTOSI 12-15-2010 [facility] S EMERGENCY UNSPECIFIED SERVICES 462 ACUTE 12-15-2010 [facility] PHARYNGITIS [facility] INC 28311 FEVER 12-15-2010 [facility] UNSPECIFIED [facility] INC 11400 FEVER 12-15-2010 [facility] PRESENTING EMERGENCY CONDITIONS SERVICES CLASSIFIED ELSEWHERE 7821 RASH AND 12-15-2010 [facility] OTHER EMERGENCY NONSPECIFIC SERVICES SKIN ERUPTION 4619 ACUTE 12-14-2010 RIGOBERTO NANCE SINUSITIS, UNSPECIFIED 6929 CONTACT 12-14-2010 RIGOBERTO NANCE DERMATITIS& OTHER ECZEMA DUE UNSPEC CAUSE 5110 PLEURISY 11-11-2010 [facility] WITHOUT EMERGENCY MENTION SERVICES EFFUS/CURRE NT TB 7955 NONSPECIFIC 11-08-2010 [facility] REACTION [facility] TO TEST FOR INC TUBERCULOSI S 13492 ABDOMINAL 10-12-2010 [place] [facility] RIGHT MEDICAL UPPER IMAGING ASS QUADRANT V0481 NEED 04-14-2010 [facility] PROPHYLACTI [facility] VACCINATION &INOCULATIO N FLU 7243 SCIATICA 02-07-2010 [facility] 4660 ACUTE 11-08-2009 RIGOBERTO NANCE BRONCHITIS 8472 LUMBAR 10-13-2009 [facility] SPRAIN AND EMERGENCY STRAIN SERVICES 11423 UNSPECIFIED 08-25-2009 KERMIT FRANKLIN DISEASE 9243 CONTUSION 08-11-2009 LYDIA FRANKLIN 32962 CONTUSION 06-15-2009 [facility] OF FOOT EMERGENCY SERVICES ASSOCIATES E9505 ELDER&SLF-INF 03-13-2009 SUSAN TINSLEY POISN AMBULANCE UNS SERVICE RX/MEDICINA L SBSTNC 7231 CERVICALGIA 02-14-2009 [facility] INC 7241 PAIN IN 02-14-2009 [facility] THORACIC [facility] SPINE INC V571 OTHER 02-14-2009 [facility] PHYSICAL [facility] THERAPY INC 7213 LUMBOSACRAL 01-17-2009 PHYSICIANS SERVICES SPONDYLOSIS PSC WITHOUT MYELOPATHY 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 4871 INFLUENZA 12-30-2008 RIGOBERTO, WITH OTHER MAIRA Bernal RESPIRATORY MANIFESTATI ONS 5569 UNSPECIFIED 12-07-2008 RIGOBERTO, ULCERATIVE MAIRA W COLITIS 3829 UNSPECIFIED 09-25-2008 RIGOBERTO, OTITIS MAIRA Bernal MEDIA 7244 THORACIC/SIA 09-03-2008 SIEN[facility] MBOSACRAL KP NEURITIS/RA DICULITIS UNSPEC 7820 DISTURBANCE 09-03-2008 SIENNA OF SKIN KP SENSATION 2449 UNSPECIFIED 08-31-2008 [facility] HYPOTHYROID INC ISM 79142 DIAB W/O 08-31-2008 [facility] COMP TYPE [facility] II/UNS NOT INC STATED UNCNTRL 3569 UNSPEC 08-31-2008 [facility] HEREDIT&IDI [facility] OPATHIC INC PERIPHERAL NEUROPATHY 4358 OTHER 08-31-2008 [facility] SPECIFIED [facility] TRANSIENT INC CEREBRAL ISCHEMIAS 4359 UNSPECIFIED 08-31-2008 [facility] TRANSIENT PHYSICIANS CEREBRAL GROUP ISCHEMIA 7802 SYNCOPE AND 08-27-2008 SIENNA, COLLAPSE KP 4928 OTHER 08-25-2008 [facility] 20417 DIVERTICULI 07-22-2008 RIGOBERTO TIS OF MAIRA Bernal COLON 33770 SCOLIOSIS , 06-22-2008 [facility] IDIOPATHIC [facility] INC 04423 OTHER 06-16-2008 [facility] CHRONIC [facility]Y PAIN SERVICES ASSOCIATES 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 V5882 ENCOUNTER 06-03-2008 [facility] [place] FITTING&ADJ [facility] NON-VASCULA R CATHETER NEC 5609 UNSPECIFIED 06-02-2008 [facility] INTESTINAL N EMERGENCY PHYS INC OBSTRUCTION 1120 CANDIDIASIS 05-26-2008 RIGOBERTO, OF MOUTH MAIRA Bernal 44488 ABDOMINAL 05-22-2008 [place] PAIN, MEDICAL EPIGASTRIC IMAGING ASSOCIATES 24195 UNSPECIFIED 04-28-2008 [facility] 5908 OTHER 04-27-2008 [facility] [place] SPECIFIED RADIOLOGY DISORDERS OF BLADDER 86816 OTHER 04-27-2008 [facility] SPECIFIED N EMERGENCY RETENTION PHYS INC OF URINE 28942 LOSS OF 01-13-2008 [facility] 52808 ABDOMINAL 01-08-2008 [facility], AMBULANCE PERIUMBILIC SERVICE 5601 PARALYTIC 11-02-2007 [place] [facility] 7011 ACQUIRED 09-19-2007 PAWS[facility], KERATODERMA GUIDO D 7030 INGROWING 09-19-2007 PAWS[facility], NAIL GUIDO D 72839 ENTHESOPATH 08-19-2007 ANNABELLE FRANKLIN UNSPECIFIED SITE 8470 NECK SPRAIN 04-22-2007 [facility] PROF SERV 9221 CONTUSION 04-22-2007 [facility] CHEST MEDICAL WALL IMAGING ASSOCIATES E9600 [...] de te s n re d ON 08 09 10 2 00 DE Ac DA 46 -1 -1 .0 00 AN ti NS 20 7- 5- 00 06 S ve ET 15 20 20 51 PH RO 71 17 17 90 AR N 3 89 MA OD CY T 4 MG TA BL ET ME 00 08 09 12 30 00 DE Ac TH [...] MG TA BL ET DI 00 08 09 90 30 00 DE Ac CY 37 -1 [...] -A 2 18 MA CE CY TA FL NO PH EN 5- 32 5 DI [...] PH ZA 61 17 17 78 AR NE 5 23 MA IN CY E 10 [...] 86 1- 8- 00 06 S ve NE 23 20 20 51 PH AM 30 [...] CY BL ET #3 34 7 ME 31 06 07 12 30 00 KR Ac TH 72 -3 -2 0. 00 OG ti OC 20 0- 8- 00 06 ER ve AR 53 20 20 0 33 BA 30 17 17 84 PH MO 1 32 AR L MA 50 CY 0 MG #1 44 TA 10 BL ET ME 59 06 07 21 6 00 KR Ac TH 76 -3 -2 .0 00 OG ti YL 24 0- 8- 00 06 ER ve NE 44 20 20 33 ED 00 17 17 84 PH NI 2 33 AR SO MA LO CY NE 4 #1 44 MG 10 DO SE PK ON 57 06 07 10 1 00 [...] 33 ZA 11 17 17 64 PH NE 0 20 AR IN MA E CY [...] 06 06 14 7 00 WA Ac NE 17 -0 -3 .0 00 L- ti OF 25 6- 0- 00 07 MA ve LO 31 20 20 77 RT XA 26 17 17 71 CI 0 07 PH N AR HC MA L CY 50 0 #1 MG 0- 19 TA 61 B NE 65 05 06 20 7 00 DE [...] 86 0- 3- 00 06 S ve NE 23 20 20 51 PH AM 30 17 17 54 AR 5 57 MA HB CY R 40 MG TA BL ET TO 68 06 30 30 00 DE Ac PI [...] 70 3- 6- 00 06 ER ve NE 82 20 20 32 AM 41 17 [...] 1- 8- 00 02 ER ve ON 20 20 26 E 80 17 17 61 PH HC 1 91 AR L MA 5 CY MG #1 TA 44 BL 10 ET OX 10 03 04 18 3 00 KR Ac YC 70 -2 -2 .0 00 OG ti OD 20 4- 1- 00 02 ER ve ON 01 20 20 26 E 80 17 17 [...] 00 03 04 10 5 00 KR XY 37 -2 -2 .0 00 OG ti CY 80 4- 1- 00 06 ER ve CL 16 20 20 31 IN 70 17 17 53 PH E 5 31 AR HY MA CL CY AT E #1 10 44 0 10 MG TA B NE 00 03 04 18 9 00 KR [...] #1 IN 44 MAIN 10 LE R CI 69 03 04 30 30 00 KR Ac TA 09 -2 -2 .0 00 OG ti LO 70 7- 1- 00 06 ER ve NE 82 20 20 14 AM 31 17 [...] 44 BL 10 ET CI 69 01 30 30 00 KR Ac TA 09 -0 -2 .0 00 OG ti LO 70 3- 7- 00 06 ER ve NE 82 20 20 29 AM 31 17 17 33 PH 2 96 AR HB MA R CY 20 #1 MG 44 10 TA BL ET NE 65 12 01 20 7 00 DE Ac OM 16 -1 -1 .0 00 AN ti ET 20 9- 3- 00 06 S ve MAIN 52 20 20 50 PH ZI 11 16 17 70 AR NE 1 05 MA CY 25 MG TA BL ET CI 13 12 30 30 00 KR Ac TA 66 -0 -0 .0 00 OG ti LO 80 8- 9- 00 06 ER ve NE 00 20 20 57 AM 90 16 [...] N ZA 93 14 14 D II NE 2 PH I IN AR WI E [...] 11 D RI TA 1 PH CH FL AR AR N- MA D CA CY W FF 03 50 93 -3 8 25 # -4 03 0 93 NE 00 10 10 5 15 3 RI [...] 11 D RI TA 1 PH CH FL AR AR N- MA D CA CY W FF 03 50 93 -3 8 25 # -4 03 0 93 NE 00 10 10 5 15 3 RI [...] 11 D RI E 9 PH CH NE AR AR OP MA D CY W [...] 34 5- 6- 00 20 N ve NE 59 20 20 AI BA ED 31 [...] 11 D RI TA 1 PH CH FL AR AR N- MA D CA CY W FF 03 50 93 -3 8 25 # -4 03 0 93 CI 65 08 08 20 10 RI 89 WE Ac NE 86 -0 -0 .0 TE 38 HR [...] 93 BL 8 ET # 03 93 NE 00 08 08 13 11 RI 89 WE Ac ED 59 -0 -0 .0 TE 38 HR ti NI 15 4- 5- 00 30 MA ve SO 44 20 20 AI N NE 30 11 11 D II 1 PH I 20 AR WI MA LL MG CY IA M TA 03 E BL 93 ET 8 # 03 93 NE 00 08 08 15 3 RI 89 [...] 11 D RI TA 1 PH CH FL AR AR N- MA D CA CY [...] 11 D RI TA 1 PH CH FL AR AR N- MA D CA CY [...] 93 BL 8 ET # 03 93 NE 00 03 03 2 40 6 RI [...] 93 BL 8 ET # 03 93 NE 00 11 01 2 40 6 RI [...] 93 UL 8 E # 03 93 NE 00 11 01 2 40 6 RI [...] 10 D RI TA 1 PH CH FL AR AR N- MA D CA CY W FF 03 50 93 -3 8 25 # -4 03 0 93 BU 00 09 11 5 60 15 RI 85 AR Ac TA 14 -2 -2 .0 TE 19 NO ti LB 31 8- 9- 00 04 LD ve -A 78 20 20 AI CE 70 10 10 D RI TA 1 PH CH FL AR AR N- MA D CA CY [...] 10 8 -3 # 25 03 93 NE 00 11 11 2 40 6 RI [...] 10 D RI TA 1 PH CH FL AR AR N- MA D CA CY [...] 10 D RI TA 1 PH CH FL AR AR N- MA D CA CY [...] 93 BL 8 ET # 03 93 NE 00 08 08 1 18 6 RI [...] 34 1- 1- 00 00 LD ve NE 59 20 20 AI ED 31 10 [...] 93 BL 8 ET # 03 93 NE 00 06 07 1 40 6 RI [...] 30 7- 7- 00 34 LD ve FL 31 20 20 AI DE 10 10 [...] 03 ET 93 8 # 03 93 NE 00 06 06 1 40 6 RI [...] 10 D RI TA 1 PH CH FL AR AR N- MA D CA CY [...] 93 BL 8 ET # 03 93 NE 00 04 04 30 7 RI 83 [...] 34 3- 3- 00 71 LD ve NE 59 20 20 AI ED 31 10 [...] 03 E 93 8 # 03 93 NE 00 04 04 10 2 RI 83 [...] 10 D RI TA 1 PH CH FL AR AR N- MA D CA CY [...] 11 03 2 90 30 CL 20 FL Ac ZA 37 -0 -0 .0 IN 43 CK ti NI 80 9- 1- 00 IC 90 ve DI 72 20 20 GR NE 41 09 10 PH EG 9 AR OR HC MA Y L CY E 4 MG LL C TA BL ET BU 00 12 03 3 60 30 CL 20 AR Ac NE 18 -0 -0 .0 IN 58 NO [...] CY MG LL TA C BL ET 00 02 02 00 60 15 CL 21 AR Ac 59 -1 -2 .0 IN 09 NO ti 10 9- 6- 00 IC 79 LD ve 54 20 20 00 10 10 PH RI 5 AR CH MA AR CY D W 65 01 02 00 90 30 CL 20 CLAUDIA Ac 48 -0 -2 .0 IN 83 SC ti 30 7- 6- 00 IC 10 H ve 70 20 20 AN 21 10 10 PH TO 0 AR NI MA O CY 49 02 02 00 40 7 EA 16 AR Ac 88 -1 -[address] 43 NO ti 40 9- 6- 00 SI 24 LD ve 60 20 20 0 DE 04 10 10 RI 0 PH CH AR AR MA D CY W OF CY NT HI AN A TR 00 11 02 02 90 30 CL 20 FL Ac AM 37 -0 -2 .0 IN 45 CK ti AD 84 9- 6- 00 IC 80 ve OL 15 20 20 GR 10 09 10 PH EG HC 5 AR OR L MA Y 50 CY E MG TA BL ET 65 01 01 00 15 5 WA 28 WE Ac 48 -0 -1 .0 LG 25 BB ti 30 4- 4- 00 RE 92 ve 70 20 20 EN 1 JI 21 10 10 S LL 0 (4 E 89 2 BU 00 12 01 01 60 30 CL 20 AR Ac NE 18 -0 -1 .0 IN 58 NO [...] 10 PH RI TA 8 AR CH FL MA AR N- CY D CA W FF 50 -3 25 -4 0 TR 00 11 12 01 90 30 CL 20 FL Ac AM 37 -0 -3 .0 IN [...] 00 60 30 CL 20 AR Ac NE 18 -0 -1 .0 IN 58 NO [...] 09 PH RI TA 8 AR CH FL MA AR N- CY D CA W [...] PH 0 AR HARSHIL MA HN CY TI 00 11 12 01 90 30 CL 20 FL Ac ZA 18 -0 -1 .0 IN 43 CK ti NI 54 9- 7- 00 IC 90 ve DI 40 20 20 GR NE 05 09 09 PH EG 1 AR OR HC MA Y L CY E 4 MG TA BL ET LI 63 11 12 01 90 30 CL 20 FL Ac DO 48 -0 -1 .0 IN 43 CK ti DE 10 9- 7- 00 IC 91 ve RM 68 20 20 GR 70 09 09 PH EG 5% 6 AR OR MA Y PA CY E TC H TR 00 11 11 00 90 30 CL 20 FL Ac AM 37 -0 -1 .0 IN [...] TO 0 AR NI MA O CY LI 63 11 11 00 90 30 CL 20 FL Ac DO 48 -0 -1 .0 IN 43 CK ti DE 10 9- 9- 00 IC 91 ve RM 68 20 20 GR 70 09 09 PH EG 5% 6 AR OR MA Y PA CY E TC H TI 55 11 11 00 90 30 CL 20 FL Ac ZA 11 -0 -1 .0 IN [...] HN CY MG TA BL ET ME 00 06 11 04 12 30 [...] 00 10 5 CL 20 AR Ac FL 00 -2 -0 .0 IN 32 NO ti FL 40 2- 5- 00 IC 69 LD ve U 80 20 20 75 08 09 09 PH RI 5 AR CH MG MA AR CY D CA W PS UL E BU 00 05 11 02 60 30 CL 19 AR Ac NE 18 -0 -0 .0 IN 76 NO ti OP 50 5- 5- 00 IC 52 LD ve IO 41 20 20 N 56 09 09 PH RI HC 0 AR CH L MA AR SR CY D W 15 0 MG TA BL ET 00 10 11 00 6. 1 RI 80 GA Ac 60 -1 -0 00 TE 46 IN ti 35 7- 5- 0 07 EY ve 46 20 20 AI 82 09 09 D FL 8 PH CH AR AE M L #3 S 93 8 BU 00 09 11 01 10 25 CL 20 AR Ac TA 60 -2 -0 0. IN 13 NO ti LB 32 4- 5- 00 IC 08 LD ve -A 54 20 20 0 CE 42 09 09 PH RI TA 1 AR CH FL MA AR N- CY D CA W FF 50 -3 25 -4 0 NE 68 09 10 01 40 10 CL [...] BL NT ET HI AN A TO 68 06 10 02 60 30 [...] 09 PH RI TA 1 AR CH FL MA AR N- CY D CA W [...] 01 60 30 CL 19 AR Ac NE 18 -0 -0 .0 IN 76 NO [...] 00 60 30 CL 19 AR Ac NE 18 -0 -1 .0 IN 76 NO [...] MA HN CY MG TA BL ET NE 68 09 09 00 40 10 CL [...] CY D MG W TA BL ET 65 04 08 01 90 30 CL 19 CLAUDIA Ac 48 -3 -1 .0 IN 60 SC ti 30 0- 3- 00 IC 45 H ve 70 20 20 AN 21 09 09 PH TO 0 AR NI MA O CY TO 68 06 08 00 60 30 [...] 35 20 20 70 09 09 PH FL 5 AR CH MA AE CY L S LO 37 07 07 00 30 30 CL 19 AR Ac RA 20 -1 -3 .0 IN 74 NO ti TA 50 8- 0- 00 IC 03 LD ve DI 34 20 20 NE 67 09 09 PH RI 2 AR CH 10 MA AR CY D MG W TA BL ET BU 00 05 07 01 60 30 EA 12 AR Ac NE 18 -0 -[address] 62 NO ti OP 50 5- 0- 00 SI 43 LD ve IO 41 20 20 DE N 56 09 09 RI HC 0 PH CH L AR AR SR MA D CY W 15 0 OF MG CY NT TA HI BL AN ET A ME 59 07 07 00 21 6 CL 19 AR Ac TH 74 -1 -3 .0 IN 74 NO ti YL 60 8- 0- 00 IC 01 LD ve NE 00 20 20 ED 10 09 09 PH RI NI 3 AR CH SO MA AR LO CY D NE W 4 MG DO SE PK NE 68 07 07 00 40 10 CL 19 AR Ac OM 38 -1 -3 .0 IN 74 NO ti ET 20 8- 0- 00 IC 02 LD ve MAIN 04 20 20 ZI 10 09 09 PH RI NE 1 AR CH MA AR 25 CY D W MG TA BL ET AM 00 07 07 00 30 10 CL 19 AR Ac OX 78 -1 -3 .0 IN 74 NO ti IC 12 8- 0- 00 IC 00 LD ve IL 61 20 20 LI 30 09 09 PH RI N 1 AR CH 50 MA AR 0 CY D MG W CA PS UL E TR 65 10 07 03 18 23 [...] MA AR CY D W 00 06 07 00 60 30 EA [...] CY 1, 00 0 MC G/ ML CY 59 06 06 00 90 30 CL 19 AR Ac CL 74 -0 -1 .0 IN 47 NO ti OB 60 1- 8- 00 IC 30 LD ve EN 17 20 20 ZA 70 09 09 PH RI NE 6 AR CH IN MA AR E [...] 8- 4- 00 SI 58 EY ve NE 02 20 20 DE ED 20 09 09 FL NI 7 PH CH SO AR AE LO MA L NE CY S 4 OF MG CY NT DO HI SE AN PK A BU 00 05 05 00 60 30 EA 12 AR Ac NE 18 -0 -[address] 62 NO [...] DE UT 50 09 09 1 PH FL AR CH MA AE CY L OF [...] IN 30 09 09 E 4 PH FL PA AR CH M MA AE 25 CY L MG OF CY CA NT P HI AN A NE 00 04 05 00 60 15 EA 12 AR Ac OM 78 -3 -[address] 55 NO ti ET 11 0- 7- 00 SI 71 LD ve MAIN 83 20 20 DE ZI 01 09 09 RI NE 0 PH CH AR AR 25 MA D CY W MG OF TA CY BL NT ET HI AN A 65 04 05 00 90 30 EA 12 CLAUDIA Ac 48 -3 -[address] 55 SC ti 30 0- 7- 00 SI 99 H ve 70 20 20 DE AN 21 09 09 TO 0 PH NI AR O MA CY OF CY NT HI AN A PE 54 04 05 [...] CY NT HI AN A ME 00 12 04 01 12 30 RI 76 AR Ac TH 60 -1 -2 0. TE 30 NO ti OC 34 8- 3- 00 80 LD ve AR 48 20 20 0 AI BA 62 08 09 D RI MO 1 PH CH L AR AR 75 M D 0 #3 W MG 93 8 TA BL ET TR 00 02 04 02 10 25 [...] #3 W 93 TA 8 BL ET NE 00 03 04 01 40 10 RI [...] 93 IT 8 /M L SUGGS SP NE 00 03 03 00 40 10 RI [...] 09 PH RI TA 1 AR CH FL MA AR N- CY D CA W [...] 08 08 RI TA 5 PH CH FL AR AR N- MA D CA CY W FF OF 50 CY -3 NT 25 HI -4 AN 0 A 24 11 12 00 12 30 EA 10 AR Ac 48 -1 -[address] 31 NO ti 60 7- 4- 00 SI 31 LD ve 60 20 20 0 DE 11 08 08 RI 0 PH CH AR AR MA D CY W OF CY NT HI AN A 00 11 12 00 15 30 CL 18 AR Ac 37 -2 -0 .0 IN 22 NO ti 84 0- 4- 00 IC 91 LD ve 18 20 20 80 08 08 PH RI 1 AR CH MA AR CY D W 60 10 11 01 18 23 EA 99 AR Ac 50 -2 -[address] 93 NO ti 50 0- 0- 00 SI 35 LD ve 17 20 20 0 DE 10 08 08 RI 8 PH CH AR AR MA D CY W OF CY NT HI AN A SM 49 05 11 02 30 30 EA 97 CLAUDIA Ac 34 -0 -[address] 92 SC ti 80 8- 7- 00 SI 21 H ve TA 40 20 20 DE AN FL 71 08 08 TO N 2 PH NI B1 AR O 2 MA 1, CY 00 0 OF MC CY G NT TA HI B AN A PA 60 09 11 01 [...] CY BL NT ET HI AN A 60 10 11 00 18 23 EA 99 AR Ac 50 -2 -[address] 93 NO ti 50 0- 7- 00 SI 35 LD ve 17 20 20 0 DE 10 08 08 RI 8 PH CH AR AR MA D CY W OF CY NT HI AN A NA 00 10 11 00 60 30 EA 10 AR Ac NE 09 -2 -[address] 01 NO ti OX 30 4- 7- 00 SI 01 LD ve EN 14 20 20 DE 90 08 08 RI 50 1 PH CH 0 AR AR MG MA D CY W TA BL OF ET CY NT HI AN A NE 00 10 11 00 40 10 EA [...] ET OF CY NT HI AN A AM 00 10 10 00 30 [...] 7- 3- 00 SI 49 Av ve NE 02 20 20 DE ai ED 20 08 08 la NI 7 PH bl SO AR e LO MA NE CY 4 OF MG CY NT DO HI SE AN PK A CI 00 10 10 00 14 7 RI 75 GA Ac NE 17 -0 -2 .0 TE 25 IN ti OF 25 4- 3- 00 42 EY ve LO 31 20 20 AI XA 26 08 08 D FL CI 0 PH CH N AR AE HC M L L #3 S 50 93 0 8 MG TA B TR 00 10 10 00 12 3 RI 75 GA Ac AM 09 -0 -2 .0 TE 25 IN ti AD 30 4- 3- 00 44 EY ve OL 05 20 20 AI 80 08 08 D FL HC 1 PH CH L AR AE 50 M L #3 S MG 93 8 TA BL ET 00 10 10 00 60 15 EA [...] NT OF CY NT HI AN A NE 10 07 10 02 60 15 EA [...] 08 08 la TA 5 PH bl FL AR e N- MA CA CY FF [...] CY OF CY NT HI AN A NE 00 09 09 00 70 17 EA [...] OF CY NT HI AN A 60 08 09 00 10 12 EA 99 No Ac 50 -2 -[address] 24 t ti 50 7- 1- 00 SI 60 Av ve 17 20 20 0 DE ai 10 08 08 la 8 PH bl AR e MA CY OF CY NT HI AN A NE 00 07 09 01 60 15 EA 98 No Ac OM 78 -1 -[address] 75 t ti ET 11 7- 1- 00 SI 92 Av ve MAIN 83 [...] AR RE M Y #3 93 8 SM 49 05 08 01 30 30 EA 97 No Ac 34 -0 -[address] 92 t ti 80 8- 1- 00 SI 21 Av ve TA 40 20 20 DE ai FL 71 08 08 la N 2 PH bl B1 AR e 2 MA 1, CY 00 0 OF MC CY G NT TA HI B AN A 00 07 08 00 60 15 EA 98 No Ac 59 -1 -[address] 75 t ti 10 7- 1- 00 SI 91 Av ve 34 20 20 DE ai 90 08 08 la 1 PH bl AR e MA CY OF CY NT HI AN A 60 07 08 01 40 7 EA 98 No Ac 50 -0 -[address] 58 t ti 50 2- 1- 00 SI 97 Av ve 17 20 [...] OF E CY NT HI AN A NE 00 07 08 00 60 15 EA 98 No Ac OM 78 -1 -[address] 75 t ti ET 11 7- 1 SI 92 Av ve MAIN 83 20 [...] CY OF CY NT HI AN A NE 00 02 07 04 60 15 EA [...] 0- 3- 00 SI 32 Av ve NE 02 20 20 DE ai ED 20 [...] 20 AI IN 70 08 08 D FL 1 PH CH 50 AR AE 0 M L MG #3 S 93 CA 8 PS UL E SM 49 05 06 00 30 30 EA 97 No Ac 34 -0 -[address] 92 t ti 80 8- 2- 00 SI 21 Av ve TA 40 20 20 DE ai FL 71 08 08 la N 2 PH [...] CY OF CY NT HI AN A NE 00 02 06 03 60 15 EA [...] ve TA 40 20 20 DE ai FL 71 08 08 la N 2 PH [...] CY OF CY NT HI AN A NE 00 02 05 02 60 15 EA [...] 34 4- 4- 00 86 Av ve NE 59 20 20 AI ai ED 31 [...] 00 14 7 RI 72 No Ac NE 17 -1 -2 .0 TE 89 t [...] OF E CY NT HI AN A NE 00 02 04 01 60 15 EA 96 No Ac OM 78 -1 -[address] 85 t ti ET 11 8- 0- 00 SI 56 Av ve MAIN 83 20 20 DE ai ZI 01 08 08 la NE 0 PH bl AR e 25 MA CY MG OF TA CY BL NT ET HI AN A BU 00 02 04 01 60 15 EA 96 No Ac TA 60 -1 -[address] 85 t ti LB 32 8- 7- 00 SI 57 Av ve -A 54 20 20 DE ai CE 42 08 08 la TA 8 PH bl FL AR e N- MA CA CY FF [...] #3 #3 93 8 TA BL ET SM 49 01 03 01 30 30 EA 96 No Ac 34 -1 -[address] 38 t ti 80 6- 6- 00 SI 58 Av ve TA 40 20 20 DE ai FL 71 08 08 la N 2 PH bl B1 AR e 2 MA 1, CY 00 0 OF MC CY G NT TA HI B AN A NE 00 02 03 00 60 15 EA [...] 8- 6- 00 SI 54 Av ve NE 02 20 20 DE ai ED 20 [...] BL NT ET HI AN A 65 02 03 00 90 [...] AM M PO #3 O 93 8 PE 54 01 03 00 [...] ve TA 40 20 20 DE ai FL 71 08 08 la N 2 PH [...] 93 -M 8 CR 10 0 MG 65 01 03 00 90 30 CL [...] bl AR e M #3 93 8 Procedures Procedure DOS Code Location Performer Comment THERAPEUT 23031 [facility] GARCIA [facility] PROP[facility]LAC INC INC TIC/DX INJECTION SUBQ/IM THER 58650 [facility] PROPH/DX 7 [facility] NJX IV E E PUSH [facility] SINGLE/1S T SBST/DRUG RINGERS J7120 [facility] LACTATE 7 [facility]ALTHCAR INFUSION E E UP TO [facility] 1000 CC INJECTION J2405 [facility] 7 HEALTHCAR HEALTHCAR ONDANSETR E E ON HCL [facility] PER 1 MG COMPREHEN 79719 [facility] SIVE 7 [facility] METABOLIC E [place] [facility] [address] [place] TRUE ABDOMEN & 7 MEDICAL PELVIS SERV W/CONTRAS FOUNDATIO T N MATERIAL THERAPEUT 02372 [facility] IC 7 [facility] INJECTION E E IV PUSH [facility] E[facility] NEW DRUG URINE 48301 [facility] 7 [facility] TEST E E VISUAL [facility] [place] [address] [facility] LIPASE 7 [facility] HEALTHCAR E E [facility] URNLS DIP 93741 [facility] 7 [facility] STICK/TAB E E LET RGNT [facility] AUTO W/O MICROSCOP Y LOCM Q9967 [facility] [phone] [facility] MG/ML E E IODINE [facility] CONCENTRA TION PER ML THER 20691 [facility] PROPH/DX 7 [facility] HE[facility]CAR NJX EA E E SEQL IV [facility] PUSH SBST/DRUG FAC BLOOD 26884 [facility] COUNT 7 [facility] COMPLETE E E AUTO&AUTO [facility] DIFRNTL WBC RADEX ABD 69475 [facility] COMPL 7 AQT ABD ASSOCIATE W/S/E/D S [place] [address] [place] [address] RADIOLOGY TOM ABDOMEN & 7 PELVIS ASSOCIATE W/[place] [address] RADIOLOGY JIMENEZ ABDOMEN & 7 PELVIS ASSOCIATE W/CONTRAS S OF NOTH T MATERIAL GROUND A0425 HYDROGRAPHICAL 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 HYDROGRAPHICAL TECHNICAL OFFICER MILEAGE 7 MONTSERRATIAN MONTSERRATIAN PER MEDICAL MEDICAL [place] [address] RADIOLOGY TYRELL ABDOMEN & 7 PELVIS ASSOCIATE W/CONTRAS S OF NOTH T MATERIAL ALPHA-1-A 66715 [facility] NTITRYPSI 7 SHARRON SHARRON N TOTAL FT FT KARINE [place] COLLECTIO 83850 [facility] N VENOUS 7 SHARRON SMILEYTH BLOOD FT FT V[place]UN[place] [address]201 [facility] IMAGING [address] ATTENUATI HEALTHCAR HEALTHCAR ON SKULL E EDGE E EDGE BASE MID-THIGH ADMN SET A7003 YOUR YOUR SM VOL 7 PHARMACY [facility] PNEUMAT NEBULIZR DISPBL FILTER A7013 PATIENT PATIENT DISPOSABL 7 AIDS INC AIDS INC W/AREOSOL COMPRESS/ US GENERATOR NEBULIZER E0570 PATIENT PATIENT WITH 7 AIDS INC AIDS INC COMPRESSO R ADMN SET A7005 PATIENT PATIENT W/SM VOL 7 AIDS INC AIDS INC NONFILTR NEBULIZR NON-DISPB L TRANSITIO 39257 [facility] 7 SHARRON MANAGE SRVC 7 PHYSICIAN DAY S DISCHARGE SBSQ 56044 [facility] 7 [facility]/DAY 25 PHYSICIAN MINUTES S HOSPITAL 52308 [facility] DISCHARGE [facility] MA[facility]YSICIAN T > 30 S MIN SBSQ [address]/DAY 25 PHYSICIAN MINUTES S SBSQ [address]/DAY 35 PHYSICIAN MINUTES S SBSQ [address]/DAY 35 PHYSICIAN MINUTES S CRITICAL 11431 [facility] 7 SHARRON ILL/INJUR ED PHYSICIAN PATIENT S INIT 30-74 MIN RADIOLOGI 32981 [facility] [place] C 7 EXAMINATI ASSOCIATE ON CHEST S OF NOTH [place]ING[place] FRONTAL CRITICAL 43763 [facility] 7 SHARRON ILL/INJUR ED PHYSICIAN PATIENT S INIT 30-74 MIN SBSQ [address]/DAY 35 PHYSICIAN MINUTES S SBSQ [address]/DAY 35 PHYSICIAN MINUTES S CRITICAL 60944 [facility] 7 SHARRON ILL/INJUR ED PHYSICIAN PATIENT S INIT 30-74 MIN CRITICAL 85183 [facility] 7 SHARRON ILL/INJUR ED PHYSICIAN PAT[place] INIT 30-[place] [address] RADIOLOGY [place] ANGIOGRAP 7 III HY CHEST ASSOCIATE W/CONTRAS S OF NOTH T/NONCONT RAST RADIOLOGI 87277 RADIOLOGY BRANDSER C 7 EXAMINATI ASSOCIATE ON CHEST S OF NOTH [place] FRONTAL ECG [address] [facility] ROUTINE 7 SHARRON ECG W/LEAST PHYSICIAN 12 LDS S EKG I&R ONLY NJX 97688 ANESTHESI WEN DX/THER 7 A GROUP SBST PRACTICE INTRLMNR CRV/THRC W/O IMG GDN RPR RECRT [address] ST [facility] 7 [place] INCAL/VNT HERNIA PHYSICIAN REDUCIBLE S IMPLANT 48865 [facility] 7 [facility] HERNIA RPR/DEBRI PHYSICIAN SUSU S CLOSURE [facility] 15621 [facility] MYOCUTANE 7 [place]ON OUS/FASCI OCUTANEOU [place]YSIC[place] [address] [address] [facility]F SURG 7 [facility] PATHOLOGY MED CTR GROSS EXAMINATI ON ONLY ANES LWR 19146 ANESTHESI CHASE ABD 7 A GROUP VENTRAL & PRACTICE INCISIONA L HERNIA REPAIR ANES 60942 ANESTHESI RANDY LOWER 7 A GROUP INTESTINE PRACTICE [place] [address] [address] SIA SURG 7 [facility] PATHOLOGY MED CTR GROSS&ISAAC ROSCOPIC EXAM EGD 79443 [facility] 7 [place] BIOPSY SINGLE/MU PHYSICIAN ROMA Owen COLONOSCO [address] [facility] PY 7 [place] W/BIOPSY SINGLE/MU PHYSICIAN LTTAMMY Owen C-REACTIV 57701 ST [facility] 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 ST [place]DR[place] [address] [facility] A[facility] & 6 KERLINE PELVIS ASSOCIATE W/CONTRAS S OF NOTH T MATERIAL ADMN SET A7003 YOUR YOUR SM VOL 6 [facility] PNE[facility]AT NEBULIZR DISPBL COMPREHEN 05381 RAD[facility] GARCIA SIVE 6 [facility] [place] [address] RADHA GARCIA INFUSION 6 [facility] THERAPY/P INC INC ROPHYLAXI S /DX 1ST TO 1 HR C-REACTIV 48964 RADHA GARCIA E PROTEIN 6 [facility] INC INC BLOOD 96247 RADHA GARCIA COUNT 6 [facility] COMPLETE INC INC AUTO&AUTO DIFRNTL WBC RADIOLOGI 91532 [facility] C EXAM 6 MEDICAL CHEST 2 IMAGING VIEWS ASS FRONTAL&L ATERAL THERAPEUT 99342 RAD[facility] GARCIA IC 6 [facility] INJECTION INC INC IV PUSH EACH NEW DRUG COMPREHEN 70324 [facility] GARCIA SIVE 6 [facility] METABOLIC INC INC PANEL THER 71400 RADHA GARCIA PROPH/DX 6 [facility] NJX IV INC INC PUSH SINGLE/1S T SBST/[place] [address] RADHA GARCIA ABDOMEN & 6 [facility] PELVIS INC INC W/O CONTRAST MATERIAL BLOOD 90050 [facility] GARCIA COUNT 6 [facility] COMPLETE INC INC AUTO&AUTO DIFRNTL WBC CULTURE 48628 [facility] GARCIA BACTERIAL 6 [facility] INC INC QUANTTATI VE COLONY COUNT URINE URNLS DIP 70453 [facility] GARCIA 6 [facility] STICK/TAB INC INC LET REAGENT AUTO MICROSCOP Y RADEX 14639 [facility] [place] SPINE 6 MEDICAL SANDRA LUMBOSACR IMAGING AL ASS MINIMUM 4 VIEWS C-REACTIV 39129 RADHA GARCIA E PROTEIN 6 [facility] INC INC CHEMOTX 11302 RADHA GARCIA ADMN IV 6 [facility] NFS TQ UP INC INC 1 HR / SBST/DRUG BLOOD 08370 RAD[facility] GARCIA COUNT 6 [facility] COMPLETE INC INC AUTO&AUTO DIFRNTL WBC INJECTION J3380 RADHA GARCIA 6 [facility] VEDOLIZUM INC INC AB 1 MG COMPREHEN 07226 RADHA GARCIA SIVE 6 [facility] METABOLIC INC INC PANEL GROUND A0425 [facility] MILEAGE 6 AMBULANCE AMBULANCE PER SERVICE SERVICE STATUTE MILE THERAPEUT 84094 RADHA GARCIA IC 6 [facility] PROPHYLAC INC INC TIC/DX INJECTION SUBQ/IM AMBULANCE A0429 [facility] SERVICE 6 AMBULANCE AMBULANCE BLS SERVICE SERVICE EMERGENCY TRANSPORT THERAPEUT 89543 [facility] PHYSICIAN STONE PROPHYLAC S GROUP ZUHAIR DUVAL TIC/DX INJECTION SUBQ/IM ADMN SET A7003 YOUR YOUR SM VOL 6 PHARMACY PHARMACY [facility] PNEUMAT NEBULIZR DISPBL THERAPEUT 71659 [facility] IC 6 PHYSICIAN PHYSICIAN PROPHYLAC S GROUP S GROUP TIC/DX INJECTION SUBQ/IM INJECTION J3380 RADHA GARCIA 6 [facility] VEDOLIZUM INC INC AB 1 MG COMPREHEN 23035 RADHA GARCIA SIVE 6 [facility] METABOLIC INC INC PANEL BLOOD 57856 RADHA GARCIA COUNT 6 [facility] COMPLETE INC INC AUTO&AUTO DIFRNTL WBC CHEMOTX 20546 RADHA GARCIA ADMN IV 6 [facility] NFS TQ UP INC INC 1 HR SBST/DRUG C-REACTIV 31694 RADHA GARCIA E PROTEIN 6 [facility] INC INC ADMN SET A7003 YOUR YOUR SM VOL 6 PHARMACY PHARMACY [facility] PNEUMAT NEBULIZR DISPBL RADEX ABD 10857 [facility] ALL COMPL 6 MEDICAL AQT ABD IMAGING W/S/E/D ASS VIEWS 1 VIEW CH CHEMOTX 51016 RADHA GARCIA ADMN IV 6 [facility] NFS TQ UP INC INC 1 HR SBST/DRUG BLOOD 55714 RADHA GARCIA COUNT 6 [facility] COMPLETE INC INC AUTO&AUTO DIFRNTL WBC C-REACTIV 78584 RADHA GARCIA E PROTEIN 6 [facility] INC INC COMPREHEN 06764 RADHA GARCIA SIVE 6 [facility] METABOLIC INC INC PANEL INJECTION J3380 RADHA GARCIA 6 [facility] VEDOLIZUM INC INC AB 1 MG INJECTION J3380 RADHA GARCIA 6 [facility] VEDOLIZUM INC INC AB 1 MG COMPREHEN 68031 [facility] GARCIA SIVE 6 [facility] [place] [address] RADHA GARCIA INFUSION 6 [facility] THERAPY/P INC INC ROPHYLAXI S /DX 1ST TO 1 HR C-REACTIV 38829 RADHA GARCIA E PROTEIN 6 [facility] INC INC BLOOD 13752 RAD[facility] GARCIA COUNT 6 [facility] COMPLETE INC INC AUTO&AUTO DIFRNTL WBC BLOOD 27613 RADHA GARCIA COUNT 5 [facility] COMPLETE INC INC AUTO&AUTO DIFRNTL WBC CHEMOTX 56691 RADHA GARCIA ADMN IV 5 [facility] NFS TQ UP INC INC 1 HR SBST/DRUG C-REACTIV 23540 RADHA GARCIA E PROTEIN 5 [facility] INC INC COMPREHEN 36833 RADHA GARCIA SIVE 5 [facility] METABOLIC INC INC PANEL INJECTION C9026 RADHA GARCIA 5 [facility] VEDOLIZUM INC INC AB 1 MG COMPREHEN 33690 RADHA GACRIA SIVE 5 [facility] METABOLIC INC INC PANEL PROTHROMB 84647 RADHA GARCIA IN TIME 5 [facility] INC INC TB CELL 63735 RAD[facility] GARCIA MEDIATED 5 [facility] ANTIGN INC INC RESPNSE GAMMA INTERFERO N COLLECTIO 67656 RADHA GARCIA N VENOUS 5 [facility] BLOOD INC INC VENIPUNCT URE C-REACTIV 73526 RADHA GARCIA E PROTEIN 5 [facility] INC INC 25 24953 RADHA GARCIA HYDROXY 5 [facility] INCLUDES INC INC FRACTIONS IF PERFORMED CYANOCOBA 00792 RADHA GARCIA JAKOB 5 [facility] VITAMIN INC INC B-12 BLOOD 34994 RADHA GARCIA COUNT 5 [facility] COMPLETE INC INC AUTO&AUTO DIFRNTL WBC RADEX 79901 RADHA GARCIA SPINE 5 [facility] CERVICAL INC INC 4 OR 5 VIEWS PRESSURIZ 56985 RADHA GARCIA ED/NONPRE 5 [facility] SSURIZED INC INC INHALATIO N TREATMENT ECG 81617 BESSON BESSON ROUTINE 5 REJI REJI ECG W/LEAST 12 LDS I&R ONLY COMPREHEN 25657 [facility] GARCIA SIVE 5 [facility] METABOLIC INC INC PANEL ECG 03500 RADHA GARCIA ROUTINE 5 [facility] ECG INC INC W/LEAST 12 LDS TRCG ONLY W/O I&R BLOOD 00969 RADHA GARCIA COUNT 5 [facility] COMPLETE INC INC AUTO&AUTO DIFRNTL WBC NATRIURET 93122 RADHA RADHA IC 5 [facility] [place] [address] RADHA RADHA TROPONIN 5 [facility] QUANTITAT INC INC ANIYAH RADIOLOGI 65699 RADHA GARCIA C 5 [facility] EXAMIN[facility] INC INC ON CHEST SINGLE VIEW FRONTAL ADMN SET A7003 YOUR YOUR SM VOL 5 PHARMACY PHARMACY [facility] PNEUMAT NEBULIZR DISPBL NEBULIZER E0570 WOLF BLOOM WITH 5 HOME HOME COMPRESSO MEDICAL MEDICAL R EQUIPME EQUIPME THERAPEUT 85884 [facility] IC 5 PHYSICIAN ISAAC PROPHYLAC S GROUP TIC/DX INJECTION SUBQ/IM PRESSURIZ 56603 [facility] ED/NONPRE 5 PHYSICIAN ISAAC SSURIZED S GROUP INHALATIO N TREATMENT INJECTION [id number] [facility] 5 PHYSICIAN ISAAC METHYLPRE S GROUP DNISOLONE ACETATE 80 MG RADIOLOGI 30198 [facility] ALL C EXAM 5 MEDICAL CHEST 2 IMAGING VIEWS ASS FRONTAL&L ATERAL [place] [address] [place] [facility] PY 5 MEDICAL KERLINE W/BIOPSY SERV SINGLE/MU FOUNDATIO LTIPLE N EGD 82931 RAD[facility] G[facility]IA TRANSORAL 5 [facility] BIOPSY INC INC SINGLE/MU LTIPLE UNCLASSIF [id number] RADHA GARCIA IED DRUGS 5 [place] [address] [facility], SURG 5 [facility] GROSS&ISAAC ROSCOPIC EXAM RADIOLOGI 49118 [place] [facility] C EXAM 5 MEDICAL SANDRA CHEST 2 IMAGING VIEWS ASS FRONTAL&L ATERAL THERAPEUT 16011 [facility] YEIMI IC 5 PHYSICIAN ISAAC PROPHYLAC S GROUP TIC/DX INJECTION SUBQ/IM MICROSOMA 28211 [facility] L 5 [facility] ANTIBODIE INC INC S EACH COMPREHEN 06470 [facility] SIVE 5 [facility] [place] [address] RAD[facility] G[facility] THYROID 5 [facility] STIMULATI INC INC NG HORMONE TSH COLLECTIO 49779 [facility] N VENOUS 5 PHYSICIAN ISAAC BLOOD S GROUP VENIPUNCT URE 25 15390 RAD[facility] GARCIA HYDROXY 5 [facility] INCLUDES [place] [address] RAD[facility] GARCIA THYROXINE 5 [facility] [place] [place] [address] RAD[facility] GARCIA TRIIODOTH 5 [facility] YRONINE INC INC T3 FREE RADIOLOGI 35845 [facility] C EXAM 5 MEDICAL SANDRA CHEST 2 IMAGING VIEWS ASS FRONTAL&L ATERAL COMPREHEN 87369 [facility] SIVE 5 [facility] METABOLIC INC INC PANEL IRON 39158 [facility] BINDING 5 [facility] CAPACITY INC INC BLOOD 00686 [facility] COUNT 5 [facility] COMPLETE INC INC AUTO&AUTO DIFRNTL WBC CYANOCOBA 34391 [facility] JAKOB 5 [facility] VITAMIN INC INC B-12 25 21451 [facility] HYDROXY 5 [facility] INCLUDES [place] [address] [facility] IRON 5 [facility] INC INC COLLECTIO 47190 [facility] N VENOUS 5 [facility] BLOOD INC INC VENIPUNCT URE C-REACTIV 05593 RAD[facility] E PROTEIN 5 [facility] INC INC RADEX 45596 [place] ABDOMEN 1 5 MEDICAL ROM IMAGING ANTEROPOS ASS TERIOR VIEW RADEX 61570 [facility] ABDOMEN 5 [facility] COMPL INC INC W/DCBTS&/ ERC VIEWS OPHTH 80815 SCIFRES SCIFRES MEDICAL 5 ANG ANG XM&EVAL COMPRE NEW PT 1/> VST COMPREHEN 00186 [facility] SIVE 5 [facility] [place] [address] RADHA GARC[facility] THYROID 5 [facility] STIMULATI [place] [address] RAD[facility] GARCIA FREE 5 [facility] THYROXINE INC INC 25 19383 [facility] G[facility] HYDROXY 5 [facility] INCLUDES INC INC FRACTIONS IF PERFORMED BLOOD 44717 [facility] COUNT 5 [facility] COMPLETE INC INC AUTO&AUTO DIFRNTL WBC IAADI 87350 [facility] B VIRUS INC INC IAADI 63964 RAD[facility] G[facility] INFFLUENZ 4 [facility] A A VIRUS INC INC RADIOLOGI 97101 RADHA GARCIA C EXAM 4 [facility] CHEST 2 INC INC VIEWS FRONTAL&L [facility] 78021 [facility] DISCHARGE 4 PHYSICIAN ISAAC DAY S GROUP MANAGEMEN T 30 MIN/< SBSQ 01465 [facility] 4 PHYSICIAN ISAAC CARE/DAY S GROUP 15 MINUTES INITIAL 34998 [facility] 4 PHYSICIAN ISAAC CARE/DAY S GROUP 50 MINUTES ECG 04980 TASHIA LAO JR ROUTINE 4 DWI DWI ECG W/LEAST 12 LDS I&R ONLY RAD[facility]OLOGI 55085 [facility] EXAMINATI IMAGING ON CHEST ASS SINGLE VIEW FRONTAL CT THORAX 56685 [facility] [facility] W/[place] [address] RADHA GARCIA INFUSION 4 [facility] THERAPY/P INC INC ROPHYLAXI S /DX 1ST TO 1 HR THERAPEUT 89597 RAD[facility] GARCIA IC 4 [facility] INJECTION INC INC IV PUSH EACH NEW DRUG COMPREHEN 76400 RADHA GARCIA SIVE 4 [facility] METABOLIC INC INC PANEL BLOOD 20325 RADHA GARCIA COUNT 4 [facility] COMPLETE INC INC AUTO&AUTO DIFRNTL WBC RADEX ABD 51152 SH[facility]ON TERESA COMPL 4 MEDICAL ROM AQT ABD IMAGING W/S/E/D ASS VIEWS 1 VIEW CH BLOOD 15456 [facility] COUNT 4 Y Y COMPLETE [facility] AUTO&AUTO DIFRNTL WBC IRON 21175 [facility] BINDING 4 Y Y [facility] 25 73495 [facility] HYDROXY 4 Y Y INCLUDES HOSPITAL HOSPITAL FRACTIONS IF PERFORMED CYANOCOBA 47635 [facility] JAKOB 4 Y Y VITAMIN [facility] B-12 [place] [address] [facility] FERRITIN 4 Y Y [facility] NZYM 56411 [facility] ACTIV BLD 4 Y Y [facility] CELLS/TIS S NONRADACT SUBSTRATE EA COLLECTIO 47635 [facility] N VENOUS 4 Y Y BLOOD [facility] VENIPUNCT URE C-REACTIV 22064 [facility] E PROTEIN 4 Y Y [facility] COMPREHEN 22873 [facility] SIVE 4 Y Y [facility] PANEL TB CELL 85463 [facility] MEDIATED 4 Y Y ANTIGN [facility] RESPNSE GAMMA INTERFERO N RADIOLOGI 92867 [facility] STATONTERESA C EXAM 4 MEDICAL ROM CHEST 2 IMAGING VIEWS ASS FRONTAL&[place] [address] [facility] BEINEKE UPR W/WO 4 MEDICAL SANDRA GLUCOSE IMAGING W/SM [place] [address] RADHA RADHA TRACT UPR 4 [facility] W/SM INT INC INC W/MULT SERIAL IMAGES BASIC 79527 RADHA RADHA METABOLIC 4 [facility] PANEL INC INC CALCIUM TOTAL RADEX 58251 SHARON TERESA ABDOMEN 4 MEDICAL ROM COMPL IMAGING W/DCBTS&/ [place] [address] SHARON CASTILLOUTCHER ABDOMEN & 4 MEDICAL ROM PELVIS IMAGING W/[place] [address] SHARON TERESA ABDOMEN & 4 MEDICAL ROM PELVIS IMAGING W/O ASS CONTRAST MATERIAL GROUND A0425 SUSAN DAVIS MILEAGE 4 AMBULANCE AMBULANCE PER SERVICE SERVICE STATUTE MILE AMBULANCE A0429 SUSAN [facility] SERVICE 4 AMBULANCE AMBULANCE BLS SERVICE SERVICE EMERGENCY TRANSPORT RADEX 37318 SHARON BEINEKE SPINE 4 MEDICAL SANDRA LUMBOSACR IMAGING AL ASS MINIMUM 4 VIEWS RADEX ABD 24465 TERESA TERESA COMPL 4 ROM ROM AQT ABD W/S/E/D VIEWS 1 VIEW CH ECG 13205 MCKEMIE MCKEMIE ROUTINE 3 JR JUAN ANTONIO JR JUAN ANTONIO ECG W/LEAST 12 LDS I&R ONLY RADEX 80866 TERESA TERESA ABDOMEN 1 3 ROM ROM ANTEROPOS TERIOR VIEW REMOVAL 88227 BOTTIGGI BOTTIGGI PERITONEA 3 ANT ANT L FOREIGN BODY FROM CAVITY ANES 97163 JIAN VILLAR INTRAPERI 3 CELESTINE CELESTINE TONEAL UPPER [place]OMEN [place] L[place] [address] MORRISON MORRISON SURG 3 JUAN ANTONIO JUAN ANTONIO PATHOLOGY GROSS EXAMINATI ON ONLY CUL BACT 54538 RADHA GARCIA XCPT 3 [facility] URINE INC INC BLOOD/STO OL AEROBIC ISOL CUL BACT 98030 RADHA GARCIA AEROBIC 3 [facility] ADDL INC INC METHS DEFINITIV E EA ISOL BASIC 84673 RADHA GARCIA METABOLIC 3 [facility] PANEL INC INC CALCIUM TOTAL BLOOD 21329 RADHA GARCIA COUNT 3 [facility] COMPLETE INC INC AUTO&AUTO DIFRNTL WBC SUSCEPTIB 50507 RADHA GARCIA LTY STDY 3 [facility] ANTIMICRB INC INC IAL MICRO/AGA R DILUTJ COMPREHEN 33059 RADHA GARCIA SIVE 3 [facility] METABOLIC INC INC PANEL BLOOD 21450 RADHA GARCIA COUNT 3 [facility] COMPLETE INC INC AUTO&AUTO DIFRNTL WBC URNLS DIP 50237 RADHA GARCIA 3 [facility] STICK/TAB INC INC [place] [address] RADHA GRACIA AMYLASE 3 [place] [address] RADHA GARCIA LIPASE 3 [facility] INC INC RADIOLOGI 08311 TERESA TERESA C EXAM 3 ROM ROM CHEST 2 VIEWS FRONTAL&L ATERAL RADIOLOGI 70600 TERESA TERESA C EXAM 3 ROM ROM CHEST 2 VIEWS FRONTAL&L ATERAL RADIOLOGI 44411 TERESA TERESA C 3 ROM ROM EXAMINATI ON CHEST SINGLE VIEW FRONTAL ANES 47079 [facility] INTRAPERI 3 ANESTH TONEAL OF THE UPPER BLUE ABDOMEN W/[place] V 118[address] LEON ISAAC LEON ISAAC SURG 3 PATHOLOGY GROSS&ISAAC ROSCOPIC EXAM OPEN AND 4572 RADHA GARCIA OTHER 3 [facility] CECECTOMY INC INC COLECTOMY 01551 JUANASTBUD ARIASSTBUD PRTL 3 BOONE BOONE W/RMVL TERMINAL ILEUM & ILEOCOLOS COMPREHEN 27170 RADHA GARCIA SIVE 3 [facility] METABOLIC INC INC PANEL BLOOD 77277 RADHA GARCIA COUNT 3 [facility] COMPLETE INC INC AUTO&AUTO DIFRNTL WBC BLOOD 39164 RADHA GARCIA COUNT 3 [facility] COMPLETE INC INC AUTO&AUTO DIFRNTL WBC URNLS DIP 81524 RADHA GARCIA 3 [facility] STICK/TAB INC INC LET REAGENT AUTO MICROSCOP Y RADEX ABD 49144 RADHA GARCIA COMPL 3 [facility] AQT ABD INC INC W/S/E/D VIEWS 1 [place] [address] RADHA GARCIA LIPASE 3 [facility] INC INC COMPREHEN 00406 RADHA GARCIA SIVE 3 [facility] METABOLIC INC INC PANEL IAADI 95115 RADHA GARCIA INFLUENZA 3 [facility] B VIRUS INC INC IAADI 34124 RADHA GARCIA INFFLUENZ 3 [facility] A A VIRUS INC INC THER 28337 RADHA GARCIA PROPH/DX 3 [facility] NJX IV INC INC PUSH SINGLE/1S T SBST/DRUG THERAPEUT 40269 RADHA GARCIA IC 3 [facility] INJECTION INC INC IV PUSH EACH NEW DRUG THERAPEUT 46323 RADHA GARCIA IC 2 [facility] INJECTION [place] [address] RADHA GARCIA INFUSION 2 [facility] THERAPY/P INC INC ROPHYLAXI S /DX [address] [place] [address] [place] [address] RADHA THOMASON ABDOMEN & 2 [facility] PELVIS INC INC W/CONTRAS T MATERIAL RADEX 64868 RADHA THOMASON ABDOMEN 1 2 [facility] INC INC ANTEROPOS TERIOR VIEW COMPREHEN 39602 RADHA GARCIA SIVE 2 [facility] [place] [address] RADHA GARCIA LIPASE 2 [facility] [place] [address] RADHA RADHA AMYLASE 2 [facility] INC INC LOCM Q9967 RADHA GARCIA [phone] 2 [facility] MG/ML INC INC IODINE CONCENTRA TION PER ML URNLS DIP 91019 RADHA GARCIA 2 [facility] STICK/TAB INC INC LET REAGENT AUTO MICROSCOP Y THER 46440 RADHA GARCIA PROPH/DX 2 [facility] NJX EA INC INC SEQL IV PUSH SBST/DRUG FAC BLOOD 81632 RADHA GARCIA COUNT 2 [facility] COMPLETE INC INC AUTO&AUTO DIFRNTL WBC 3D 65608 RADHA GARCIA RENDERING 2 [facility] INC INC W/INTERP& POSTPROC DIFF WORK STATION SKIN TEST 75856 RADHA RADHA 2 [facility] TUBERCULO INC INC SIS INTRADERM AL RADIOLOGI 73023 SHARON MOORE C EXAM 2 MEDICAL ROM CHEST 2 IMAGING VIEWS ASS FRONTAL&L ATERAL COMPREHEN 60697 RADHA THOMASON SIVE 2 [facility] METABOLIC INC INC PANEL BLOOD 61456 RADHA GARCIA COUNT 2 [facility] COMPLETE INC INC AUTO&AUTO DIFRNTL WBC URNLS DIP 44979 RADHA GARCIA 2 [facility] STICK/TAB INC INC LET REAGENT AUTO MICROSCOP Y CULTURE 93058 RADHA GARCIA BACTERIAL 2 [facility] INC INC [place]TT[place] [address] RADHA GARCIA AMYLASE 2 [place] [address] RADHA GARICA LIPASE 2 [place] [address] RADHA GARCIA INFUSION 2 [facility] THERAPY INC INC PROPHYLAX IS/DX EA HOUR CUL 52704 RADHA GARCIA PRSMPTV 2 [facility] PTHGNC [place] [address] RADHA GARCIA INFUSION 2 [facility] THERAPY/P INC INC ROPHYLAXI S /DX 1ST TO 1 HR EGD 75339 RADHA GARCIA TRANSORAL 2 [facility] BIOPSY INC INC SINGLE/MU LTIPLE ECG 87250 TAMIKA ALEGRIASON ROUTINE 2 REJI REJI ECG W/LEAST 12 LDS I&R ONLY CRITICAL 30782 [facility] CARE 2 ISAAC ISAAC ILL/INJUR ED PATIENT INIT 30-74 MIN URINE 60278 RADHA GARCIA 2 [facility] TEST INC INC VISUAL COLOR CMPRSN METHS URNLS DIP 45657 RADHA GARCIA 2 [facility] STICK/TAB INC INC [place] [address] [place] UPR W/WO 2 MEDICAL ROM GLUCOSE IMAGING W/SM ASS INTEST FOLLW-THR U RADEX 21418 RADHA GARCIA SMALL 2 [facility] INTESTINE INC INC W/MULTIPL E SERIAL IMAGES C-REACTIV 64439 RADHA GARCIA E PROTEIN 2 [facility] INC INC BLOOD 44273 RADHA GARCIA COUNT 2 [facility] COMPLETE INC INC AUTO&AUTO DIFRNTL WBC DETERMINA 69126 JOSE GARCIA RA TION 2 REFRACTIV E STATE OPHTH 57589 JOSE GARCIA RA MEDICAL 2 XM&EVAL COMPRE NEW PT 1/> VST COMPREHEN 48733 RADHA GARCIA SIVE 2 [facility] [place] [address] RADHA THOMASON INFUSION 2 [facility] THERAPY/P INC INC ROPHYLAXI S /DX 1ST TO 1 HR THERAPEUT 79373 RADHAANYI GARCIA IC 2 [facility] INJECTION INC INC IV PUSH EACH NEW DRUG BLOOD 58890 RADHA GARCIA COUNT 2 [facility] COMPLETE INC INC AUTO&AUTO DIFRNTL WBC URNLS DIP 58337 RADHA RADHA 2 [facility] STICK/TAB INC INC [place] [address] RADHA GARCIA LIPASE 2 [place] [address] RADHA GARCIA AMYLASE 2 [place] [address] RADHA GARCIA LIPASE 2 [facility] INC INC BLOOD 00804 RADHA GARCIA COUNT 2 [facility] COMPLETE INC INC AUTO&AUTO DIFRNTL WBC COMPREHEN 00717 RADHA GARCIA SIVE 2 [facility] METABOLIC INC INC PANEL THER 60339 RADHA THOMASON PROPH/DX 2 [facility] NJX IV INC INC PUSH SINGLE/1S T SBST/DRUG THERAPEUT 87042 RADHA GARCIA IC 2 [facility] PROPHYLAC INC INC TIC/DX INJECTION SUBQ/IM COMPREHEN 93403 RADHA RADHA SIVE 2 [facility] METABOLIC INC INC PANEL BLOOD 60078 RADHA THOMASON COUNT 2 [facility] COMPLETE INC INC AUTO&AUTO DIFRNTL WBC URNLS DIP 46240 RADHA RADHA 2 [facility] STICK/TAB INC INC [place] [address] RADHA GARCIA LIPASE 2 [place] [address] RADHA GARCIA AMYLASE 2 [facility] INC INC THERAPEUT 80467 RADHA THOMASON IC 2 [facility] PROPHYLAC INC INC TIC/DX INJECTION SUBQ/IM THERAPEUT 51084 RADHA GARCIA IC 2 [facility] PROPHYLAC INC INC TIC/DX INJECTION SUBQ/IM GROUND A0425 SUSAN [facility] MILEAGE 2 AMBULANCE AMBULANCE PER SERVICE SERVICE STATUTE MILE RADEX 94540 RADHA GARCIA SPINE 2 [facility] LUMBOSACR INC INC AL MINIMUM 4 VIEWS AMB A0427 SUSAN [facility] SERVICE 2 AMBULANCE AMBULANCE ALS SERVICE SERVICE EMERGENCY TRANSPORT LEVEL 1 RADEX 36925 RADHA GARCIA RIBS UNI 2 [facility] W/POSTERO INC INC ANT CH MINIMUM 3 VIEWS RADEX HIP 63469 RADHA RADHA 2 [facility] UNILATERA INC INC L COMPLETE MINIMUM [address] [place] [address] RADHA GARCIA ABDOMEN & 1 [facility] PELVIS INC INC W/O CONTRAST MATERIAL INJECTION J2405 RADHA GARCIA 1 [facility] ONDANSETR INC INC ON HCL PER 1 [place] [address] RADHA GARCIA INFUSION 1 [facility] THERAPY/P INC INC ROPHYLAXI S /DX 1ST TO 1 HR HEPATIC 97062 RADHA GARCIA FUNCTION 1 [facility] [place] [place] [address] RADHA GARCIA INFUSION 1 [facility] THERAPY INC INC PROPHYLAX IS/DX EA HOUR URNLS DIP 32995 RADHA GARCIA 1 [facility] STICK/TAB INC INC LET REAGENT AUTO MICROSCOP Y 3D 70990 RADHA GARCIA RENDERING 1 [facility] INC INC W/INTERP& POSTPROC DIFF WORK STATION BASIC 78852 RADHA GARCIA METABOLIC 1 [facility] PANEL INC INC CALCIUM TOTAL BLOOD 19854 RADHA GARCIA COUNT 1 [facility] COMPLETE INC INC AUTO&[place] [address] RADHA GARCIA LIPASE 1 [facility] INC INC INJECTION J1745 RADHA GARCIA 1 [facility] INFLIXIMA INC INC B EXCLUDES BIOSIMILA R 10 [place] [address] RADHA GARCIA INFUSION 1 [facility] THERAPY INC [place] [address] RADHA GARCIA INFUSION 1 [facility] THERAPY/P INC INC ROPHYLAXI S /DX 1ST TO 1 HR RADIOLOGI 18448 RADHA GARCIA C EXAM 1 [facility] CHEST 2 INC INC VIEWS FRONTAL&L ATERAL AMBULANCE A0429 SUSAN DAVIS SERVICE 1 AMBULANCE AMBULANCE BLS SERVICE SERVICE EMERGENCY TRANSPORT INJECTION J2405 RADHA GARCIA 1 [facility] ONDANSETR INC INC ON HCL PER 1 MG COMPREHEN 10251 RADHA GARCIA SIVE 1 [facility] METABOLIC INC INC PANEL IAADI 02962 RADHA GARCIA INFLUENZA 1 [facility] B VIRUS INC INC IAADI 71813 RADHA GARCIA INFFLUENZ 1 [facility] A A VIRUS INC INC GROUND A0425 S[facility]AN DAVIS MILEAGE 1 AMBULANCE AMBULANCE PER SERVICE SERVICE STATUTE MILE URNLS DIP 55207 RADHA GARCIA 1 [facility] STICK/TAB INC INC LET REAGENT AUTO MICROSCOP Y BLOOD 59033 RADHA GARCIA COUNT 1 [facility] COMPLETE INC INC AUTO&AUTO DIFRNTL WBC 3D 52345 RADHA GARCIA RENDERING 1 [facility] INC INC W/INTERP& POSTPROC DIFF WORK STATION URINE 30393 RADHA GARCIA 1 [facility] TEST INC INC VISUAL COLOR CMPRSN METHS CT SOFT 72443 RADHA GARCIA TISSUE 1 [facility] NECK INC INC W/[place] [address] RADHA GARCIA STREPTOCO 1 [facility] [place] [address] RADHA GARCIA STREPTOCO 1 [facility] CCUS INC INC GROUP A IAADI 44848 RADHA GARCIA INFFLUENZ 1 [facility] A A VIRUS INC INC IAADI 52406 RADHA GARCIA INFLUENZA 1 [facility] [place] [address] RADHA GARCIA INFUSION 1 [facility] THERAPY/P INC INC ROPHYLAXI S /DX 1ST TO 1 [place] [address] RADHA GARCIA INFUSION 1 [facility] THERAPY INC INC PROPHYLAX IS/DX EA HOUR RADIOLOGI 06783 SHARON MOORE C EXAM 1 MEDICAL ROM CHEST 2 IMAGING VIEWS ASS FRONTAL&L ATERAL SKIN TEST 62146 RADHA GARCIA 1 [facility] T[place]BER[place] [address] SHARON MOORE ABDOMEN & 1 MEDICAL ROM PELVIS IMAGING W/O ASS CONTRAST MATERIAL RADIOLOGI 81218 [facility] C EXAM 1 MEDICAL ROM CHEST 2 IMAGING VIEWS ASS FRONTAL&[place] [address] RADHA GARCIA INFUSION 1 [facility] THERAPY/P INC INC ROPHYLAXI S /DX 1ST TO [place] [address] RADHA GARCIA INFUSION 1 [facility] THERAPY INC INC PROPHYLAX IS/DX EA HOUR 3D 64499 [facility] MOORE RENDERING 1 MEDICAL ROM IMAGING W/INTERP& ASS POSTPROC DIFF WORK STATION BLOOD 30224 RADHA GARCIA COUNT 1 [facility] COMPLETE INC INC AUTO&AUTO DIFRNTL WBC URNLS DIP 26322 RADHA RADHA 1 [facility] STICK/TAB INC INC [place] [address] RADHA GARCIA LIPASE 1 [facility] INC INC COMPREHEN 82614 RADHA THOMSAON SIVE 1 [facility] METABOLIC INC INC PANEL BLOOD 98296 RADHA GARCIA COUNT 1 [facility] COMPLETE INC INC AUTO&AUTO DIFRNTL WBC BASIC 43004 RADHA GARCIA METABOLIC 1 [facility] PANEL INC INC CALCIUM TOTAL URNLS DIP 24482 RADHA GARCIA 1 [facility] STICK/TAB INC INC LET REAGENT AUTO MICROSCOP Y URNLS DIP 72656 RADHA GARCIA 1 [facility] STICK/TAB INC INC LET REAGENT AUTO MICROSCOP Y BLOOD 33399 RADHA GARCIA COUNT 1 [facility] COMPLETE INC INC AUTO&[place] [address] RADHAANYI GARCIA INFUSION 1 [facility] THERAPY INC INC PROPHYLAX [place] [address] RADHA GARCIA LIPASE 1 [place] [address] RADHA GARCIA AMYLASE 1 [facility] INC INC COMPREHEN 42107 RADHA GARCIA SIVE 1 [facility] [place] [address] RADHA GARCIA INFUSION 1 [facility] THERAPY/P INC INC ROPHYLAXI S /DX 1ST TO 1 HR SKIN TEST 17734 RADHA GARCIA 1 [facility] CENTER SIS INTRADERM AL RADIOLOGI 75812 [place] C EXAM 1 MEDICAL ROM CHEST 2 IMAGING VIEWS ASS FRONTAL&L ATERAL URNLS DIP 60474 RADHA GARCIA 1 [facility] STICK/TAB INC INC [place] [address] RADHA GARCIA CLOSTRIDI 0 [facility] UM [place] [address] RADHA GARCIA GIARDIA 0 [facility] INC INC OVA&JACQUELINE 70674 RADHA GARCIA ITES 0 [facility] DIRECT INC INC SMEARS CONCENTRA TION & ID C-REACTIV 71323 RADHA GARCIA E PROTEIN 0 [facility] HIGH INC INC SENSITIVI TY CUL BACT 91540 RADHA GARCIA STOOL 0 [facility] AEROBIC INC INC ISOL SALMONELL A&[place] [address] RADHA GARCIA INFUSION 0 [facility] THER INC INC PROPH ADDL SEQUENTIA L [place] [address] RADHA GARCIA INFUSION 0 [facility] THERAPY/P INC INC ROPHYLAXI S /DX 1ST TO 1 HR URNLS DIP 76483 RADHA GARCIA 0 [facility] STICK/TAB INC INC LET REAGENT AUTO MICROSCOP Y URNLS DIP 95596 RADHA GARCIA 0 [facility] STICK/TAB INC INC LET REAGENT AUTO MICROSCOP Y BLOOD 87170 RADHA GARCIA COUNT 0 [facility] COMPLETE INC INC AUTO&[place] [address] RADHA GARCIA AMYLASE 0 [place] [address] RADHA GARCIA LIPASE 0 [place] [address] RADHA GARCIA STREPTOCO 0 [facility] CCUS INC INC GROUP A COMPREHEN 76200 RADHA GARCIA SIVE 0 [facility] METABOLIC INC INC PANEL RADEX TOE 33823 SHARON MOORE, MINIMUM 0 MEDICAL CASEY 2 VIEWS IMAGING ASSOCIATE S GROUND A0425 [facility] MILEAGE 0 AMBULANCE AMBULANCE PER SERVICE SERVICE STATUTE MILE AMBULANCE A0429 [facility] SERVICE 0 AMBULANCE AMBULANCE BLS SERVICE SERVICE EMERGENCY TRANSPORT APPL 54563 RADHA GARCIA MODALITY 9 [facility] 1/> AREAS INC INC ELEC STIMJ UNATTENDE D PHYSICAL 06809 RADHA GARCIA THERAPY 9 [facility] EVALUATIO INC INC N THERAPEUT 33171 RADHA GARCIA IC PX 1/> 9 [facility] AREAS INC INC EACH 15 MIN EXERCISES APPLICATI 56482 RADHA GARCIA ON 9 [facility] MODALITY INC INC 1/> AREAS HOT/COLD PACKS APPL 08919 RADHA GARCIA MODALITY 9 [facility] 1/> AREAS INC INC ULTRASOUN D EA 15 MIN PSYCHOLOG 49769 PHYSICIAN [facility] ADMN BY [facility] TECH NE HR NRV CNDJ 10265 SIENNA EL, AMPLT&LAT 9 KP [facility] ENCY EA NRV MOTOR W/F-WAVE STD NRV CNDJ 02194 SIENNA EL, AMPLITUDE 9 KP [facility] & LATENCY EACH NERVE SENSORY NDL EMG 1 97395 SIENNA EL XTR W/WO 9 KP [facility] RELATED PARASPINA L AREAS MRI 94262 CASEY C TERESA, SPINAL 9 TERESA CASEY CANAL LUMBAR W/O CONTRAST MATERIAL ECHO 98446 RADHA GARCIA TTHRC R-T 9 [facility] 2D INC INC W/WOM-MOD E COMPL SPEC&COLR D 3D 61571 CASEY MOORE, RENDERING 9 TERESA PEÑA W/INTERP & POSTPROCE SS SUPERVISI ON RHEUMATOI 75253 RADHA Buenrostro FACTOR 9 [facility] QUANTITAT INC INC ANIYAH COMPREHEN 18233 RADHA GARCIA SIVE 9 [facility] METABOLIC INC INC PANEL HEMOGLOBI 55535 RADHA GARCIA N 9 [facility] GLYCOSYLA INC INC ANGELA A1C BLOOD 04064 RADHAANYI GARCIA COUNT 9 [facility] COMPLETE INC INC AUTO&AUTO DIFRNTL WBC SYPHILIS 04820 RADHA GARCIA TEST 9 [facility] NON-TREPO INC [place] [address] RADHA GARCIA THYROXINE 9 [facility] TOTAL INC INC CYANOCOBA 69923 RADHA GARCIA JAKOB 9 [facility] VITAMIN INC INC B-12 PROTEIN 33953 RADHA GARCIA ELECTROPH 9 [facility] ORETIC INC INC FRACTJ&[place] [address] RADHA GARCIA FOLIC 9 [facility] [place] [address] RADHA [facility]ARCIA THYROID 9 [facility] STIMULATI INC INC NG HORMONE TSH BLOOD 32153 RADHA THOMASON COUNT 9 [facility] COMPLETE INC INC AUTO&AUTO DIFRNTL WBC COMPREHEN 09510 RADHA [facility]ARCIA SIVE 9 [facility] METABOLIC INC INC PANEL C-REACTIV 30400 RADHA GARCIA E PROTEIN 9 [facility] HIGH INC INC SENSITIVI TY THERAPEUT 02164 [facility]ARCIA IC 9 [facility] PROPHYLAC INC INC TIC/DX INJECTION SUBQ/IM RADIOLOGI 44532 RADHA GARCIA C EXAM 9 [facility] CHEST 2 INC INC VIEWS FRONTAL&L ATERAL CT PELVIS [address]5056 [facility] ANALI KOHLER, W/O [address] [place] [address] [facility] ANALI KOHLER, ABDOMEN 9 RADIOLOGY J W/[place] [address] RADHA GARCIA AMYLASE 9 [facility] INC INC URINE 88937 RADHA GARCIA 9 [facility] TEST INC INC VISUAL COLOR CMPRSN METHS URNLS DIP 68528 RADHA GARCIA 9 [facility] STICK/TAB INC INC LET REAGENT AUTO MICROSCOP Y BLOOD 51902 RADHA GARCIA COUNT 9 [facility] COMPLETE INC INC AUTO&AUTO DIFRNTL WBC RADEX 75131 [place], ABDOMEN 9 [facility] [place] P COMPL IMAGING W/DCBTS&/ ASSOCIATE ERC VIEWS S COMPREHEN 88533 [facility] GARCIA SIVE 9 [facility] METABOLIC INC INC PANEL BLOOD 97983 RADHA GARCIA COUNT 9 [facility] COMPLETE INC INC AUTO&AUTO DIFRNTL WBC CYANOCOBA 95582 RADHA GARCIA JAKOB 9 [facility] VITAMIN INC INC B-12 RADEX 60838 [place], SPINE 9 [facility] SCOLIOS IMAGING STUDY ASSOCIATE W/SUPINE S & ERECT STUDY OBSERVATI 82511 WENDY NGUYEN ON CARE 9 , CALEB CALEB DISCHARGE MANAGEMEN T RADEX ABD 04702 [facility] A[facility]LI [place] COMPL 9 RADIOLOGY J AQT ABD W/S/E/D VIEWS 1 VIEW CH INITIAL 62051 WENDY NGUYEN OBSERVATI 9 , CALEB CALEB ON CARE/DAY [address] PELVIS [address] [facility] A[facility] [place] W/O 9 RADIOLOG[place] [address] [facility] A[facility] [place] ABDOMEN 9 RADIOLOGY JUDAH L W/[place] [address] RADHA GARCIA INFUSION 9 [facility] THERAPY/P INC INC ROPHYLAXI S /DX 1ST TO 1 HR RADEX 62948 RADHA GARCIA ABDOMEN 9 [facility] COMPL INC INC W/DCBTS&/ ERC VIEWS COMPREHEN 22679 RADHA GARCIA SIVE 9 [facility] METABOLIC INC INC PANEL URNLS DIP 74281 RADHA RADHA 9 [facility] STICK/TAB INC INC LET REAGENT AUTO MICROSCOP Y BLOOD 14761 RADHA GARCIA COUNT 9 [facility] COMPLETE INC INC AUTO&[place] [address] SHARON CANSECO, HEAD/BRAI 9 [facility] [place] P N W/O IMAGING CONTRAST ASSOCIATE MATERIAL S 3D 85216 RADHA GARCIA RENDERING 9 [facility] W/INTERP INC INC & [place] [address] [facility] [place] JOSE F, ABDOMEN 9 RADIOLOGY J W/CONTRAS T [place]ERIAL [place] PELVIS [address] [facility] [place] JOSE F, 9 RADIOLOGY J W/CONTRAS T [place] P[place]VIS [address] [facility] [place] CESAR, 9 RADIOLOGY LUIS G W/[place] [address] [facility] [place] CES[place], ABDOMEN 9 RADIOLOGY LUIS G W/CONTRAS T MATERIAL RADEX 56762 RADHA GARCIA SPINE 8 [facility] LUMBOSACR INC INC AL MINIMUM 4 [place] [address] RADHA GARCIA TRACT UPR 8 [facility] W/SM INT INC INC W/[place] [address] [facility], UPR W/WO 8 [facility] [place] GLUCOSE IMAGING W/SM ASSOCIATE [place] [address] RADHA GARCIA AMYLASE 8 [facility] [place] [address] RADHA GARCIA LIPASE 8 [facility] [place] [address] RADHA GARCIA THER 8 [facility] PROPH/DX INC INC 1ST >1 HR URNLS DIP 65109 RADHA GARCIA 8 [facility] STICK/TAB INC INC LET REAGENT AUTO MICROSCOP Y AMBULANCE A0429 [facility] SERVICE 8 AMBULANCE AMBULANCE BLS SERVICE SERVICE EMERGENCY TRANSP[facility] GR[facility] A0425 [facility] PER [facility] SERVICE STATUTE MILE COMPREHEN 22169 [facility] METABOLIC INC INC PANEL BLOOD 80603 [facility] COUNT 8 [facility] COMPLETE INC INC AUTO&[place] [address] [facility] ABDOMEN 8 Y Y W/CONTRAS HOSPITAL HOSPITAL T MATERIAL INJECTION J2270 [facility] MORPHINE 8 Y Y SUL[facility]ATE [facility] HOSPITAL UP TO [address] PELVIS 18548 [place]OD[place], 8 MEDICAL PAUL[place] W/[place] [address] [facility] INFUSION 8 Y Y HYDRATION HOSPITAL HOSPITAL INITIAL 31 MIN-1 HR THER 10518 [facility] PROPH/DX 8 Y Y NJX EA [facility] SEQL IV PUSH SBST/DRUG SUBCUTANE 44359 [facility] OUS 8 Y Y INFUSION [facility] EACH ADDITIONA L IV PUSH COLLECTIO 93034 [facility] N VENOUS 8 Y Y BLOOD [facility] VENIPUNCT URE GONADOTRO 86872 [facility] PIN 8 Y Y CHORIONIC [facility] QUALITATI VE INJECTION J3010 [facility] FENTANYL 8 Y Y CITRATE [facility] 0.1 MG URNLS DIP 13137 [facility] 8 Y Y STICK/TAB [facility] LET REAGENT AUTO MICROSCOP Y RADEX ABD 48163 [facility] COMPL 8 Y Y AQT ABD [facility] W/S/E/D VIEWS 1 VIEW [place] THER [address] [facility] UNIVERSIT PROPH/DX 8 Y Y NJX IV HOSPITAL HOSPITAL PUSH 1ST SBST/DRUG COMPREHEN 48481 [facility] SIVE 8 Y Y [facility]ABOLIC [facility] PANEL RINGERS J7120 [facility] LACTATE 8 Y Y INFUSION [facility] HOSPITAL UP TO 1000 CC BLOOD 14781 [facility] COUNT 8 Y Y COMPLETE [facility]PITAL AUTOMATED INJECTION J2405 [facility] MG BLOOD 25528 [facility] G[facility]IA COUNT 8 [facility] COMPLETE INC INC AUTO&AUTO DIFRNTL WBC COMPREHEN 81601 [facility] SIVE 8 [facility] [place] NFS 68344 RAD[facility] GARCIA THER 8 [facility] PROPH/DX INC INC 1ST >1 HR RADEX ABD 42232 SHARON CASTILLOUTCHER, COMPL 8 MEDICAL CASEY AQT ABD IMAGING W/S/E/D ASSOCIATE VIEWS [address] [place] [address] RAD[facility] GARCIA LIPASE 8 [place] [address] [facility] GARCIA AMYLASE 8 [place] [address] [facility] G[facility] AMYLASE 8 [facility] INC INC BILIRUBIN 58438 RAD[facility] GARCIA DIRECT 8 [place] [address] [facility] GARCIA LIPASE 8 [facility] INC INC RADEX ABD 09059 SHARON MOORE, COMPL 8 MEDICAL CASEY AQT ABD IMAGING W/S/E/D ASSOCIATE VIEWS 1 S VIEW CH URNLS DIP 37119 [facility] GARCIA 8 [facility] STICK/TAB INC INC LET REAGENT AUTO MICROSCOP Y BLOOD 05117 [facility] GARCIA COUNT 8 [facility] COMPLETE INC INC AUTO&AUTO DIFRNTL WBC COMPREHEN 86071 [facility] SIVE 8 [facility] [place] [address] [facility] G[facility] ABDOMEN 8 [facility] W/CONTRAS INC INC T MATERIAL 3D 36610 [place] HAR[place] RENDERING 8 MEDICAL SHELDON P IMAGING W/INTERP& ASSOCIATE POSTPROC S DIFF WORK STATION CT PELVIS 60220 [facility] GARCIA 8 [facility] W/CONTRAS INC INC T MATERIAL BLOOD 60649 [facility] GARCIA COUNT 8 [facility] COMPLETE INC INC AUTO&AUTO DIFRNTL WBC C-REACTIV 90699 [facility] GARCIA E PROTEIN 8 [facility] HIGH INC INC SENSITIVI TY BLOOD 74069 [facility] GARCIA COUNT 8 [facility] COMPLETE INC INC AUTO&AUTO DIFRNTL WBC BASIC 79152 RAD[facility] GARCIA METABOLIC 8 [facility] PANEL INC INC CALCIUM TOTAL CYANOCOBA 13493 [facility]IA JAKOB 8 [facility] VITAMIN INC INC B-12 IAADI 23105 RAD[facility] GARCIA INFLUENZA 8 [facility] B VIRUS INC INC IAADI 05110 [facility] G[facility]IA INFFLUENZ 8 [facility] A A VIRUS INC INC RADIOLOGI 23664 [place] HAR[place]EN C EXAM 8 MEDICAL SHE[place] P CHEST 2 IMAGING VIEWS ASSOCIATE FRONTAL&L S ATERAL COMPREHEN 70496 [facility] G[facility]IA SIVE 8 [facility] [address] RADHA GARCIA LIPASE 8 [place] [address] RAD[facility] GARCIA AMYLASE 8 [facility] INC INC BLOOD 38474 RAD[facility] GARCIA COUNT 8 [facility] COMPLETE INC INC AUTO&AUTO DIFRNTL WBC URNLS DIP 75682 [facility] GARCIA 8 [facility] STICK/TAB INC INC [place] [address] [facility] GARCIA THER 8 [facility] PROPH/DX INC INC 1ST >1 HR RADEX ABD 86801 [place] HARLEEN, COMPL 8 MEDICAL SHE[place] P AQT ABD IMAGING W/S/E/D ASSOCIATE VIEWS 1 S VIEW CH CULTURE 09665 [facility] G[facility]IA BACTERIAL 8 [facility] INC INC QUANTTATI VE COLONY COUNT URINE RADEX 55987 RADHA GARCIA SPINE 8 [facility] THORACIC INC INC 3 VIEWS RADEX 00991 [facility] GARCIA SPINE 8 [facility] CERVICAL INC INC 6 OR MORE VIEWS RADIOLOGI 45883 RAD[facility] GARCIA C EXAM 8 [facility] CHEST 2 INC INC VIEWS FRONTAL&L ATERAL COMPREHEN 45523 [facility] FRIAS 8 [facility] METABOLIC INC INC PANEL CT PELVIS 88216 [facility] GARCIA W/O 8 [facility] CONTRAST INC INC MATERIAL URNLS DIP 39909 [facility] GARCIA 8 [facility] STICK/TAB INC INC LET REAGENT AUTO MICROSCOP Y 3D 63716 RAD[facility] GARCIA RENDERING 8 [facility] INC INC W/INTERP& POSTPROC DIFF WORK STATION BLOOD 15957 RAD[facility] GARCIA COUNT 8 [facility] COMPLETE INC INC AUTO&[place] [address] RADHA GARCIA AMYLASE 8 [place] [address] RADHA GARCIA LIPASE 8 [place] [address] [facility] GARCIA ABDOMEN 8 [facility] W/O INC INC CONTRAST MATERIAL RADEX 84334 [place] TERESA, SMALL 8 MEDICAL CASEY INTESTINE IMAGING ASSOCIATE W/[place] [address] PATHOLOGY PATHOLOGY SURG 8 & & PATHOLOGY CYTOLOGY CYTOLOGY LAB LAB GROSS&ISAAC ROSCOPIC EXAM ANES 87826 [facility] 8 ANESTH REY F INTESTINE OF THE PSYCHIATRIC [place] [address] [facility] GARCIA THER 8 [facility] PROPH/DX INC INC 1ST >1 HR COLONOSCO 88414 ANALI [place] PY 8 MEDICAL CALVIN W/BIOPSY SERV SINGLE/MU FOUNDATIO LTIPLE CLOSED 4525 RADHA RADHA [ENDOSCOP 8 [facility] IC] INC INC BIOPSY OF LARGE INTESTINE Encounters Encounter Start End Date Code Location Performer Type Date HOSPITAL [facility] - 7 7 [facility] OUTPATIEN INC T OFFICE 86166 RADHA ALVARADO 7 7 [facility] T NEW 20 INC MINUTES EMERGENCY 61835 SHAILESH ANDINO 7 7 EMERGENCY DEPARTMEN T VISIT PHYSICIAN HIGH/URGE S NT SEVERITY HOSPITAL [facility] - 7 7 [facility] OUTPATIEN INC T EMERGENCY 91493 MILAGROS MULTANI 7 7 PHYSICIAN JR CARY S, [facility] T VISIT MODERATE SEVERITY EMERGENCY 16414 RADHA 7 7 [facility] DEPARTMEN INC T VISIT LOW/MODER SEVERITY [facility]OSPITALS EMERGENCY 59050 [facility] 7 7 [place] DEPARTMEN PHYSICIAN T VISIT S MODERATE SEVERITY EMERGENCY 45379 7 7 [facility]ALTH[facility] DEPARTMEN E T VISIT HOSPITALS LOW/MODER SEVERITY OFFICE 60742 [facility] 7 7 [facility] T VISIT 15 PHYSICIAN MINUTES S OFFICE 24016 [facility] 7 7 [place] T VISIT 10 PHYSICIAN MINUTES S EMERGENCY 28529 NE YOUNG 7 7 MEDICAL DEPARTMEN SERV T VISIT FOUNDATIO LIMITED/M N INOR [facility] - 7 7 [facility] T HOSPITALS EMERGENCY 81742 [facility] 7 7 MEDICAL DEPARTMEN SERV T VISIT FOUNDATIO HIGH/URGE N NT SEVERITY OFFICE 45283 [facility] 7 7 [place] T VISIT 25 PHYSICIAN MINUTES S OFFICE 89628 [facility] 7 7 [place] T VISIT 25 PHYSICIAN MINUTES S EMERGENCY 22652 [facility] 7 7 EMERGENCY VISIT HIGH PHYSICIAN SEVERITY& S THREAT FUN EMERGENCY 96386 [facility] 7 7 EMERGENCY DEPARTMEN T VISIT PHYSICIAN HIGH/URGE S NT SEVERITY EMERGENCY 33736 [facility] 7 7 EMERGENCY VISIT HIGH PHYSICIAN SEVERITY& S THREAT FUN EMERGENCY 69961 [facility] 7 7 EMERGENCY VISIT HIGH PHYSICIAN SEVERITY& S THREAT FUNJ OFFICE 95022 [facility] 7 [facility] T VISIT 25 PHYSICIAN [address] [facility] - 7 7 [facility] OUTPATIEN FT [facility] - 7 7 [facility]PATIEN T [facility] - 7 7 [place] OUTPATIEN FT T KAR[facility] EMERGENCY 23121 [facility] 6 6 EMERGENCY N DEPARTMEN T VISIT PHYSICIAN HIGH/URGE S NT SEVERITY OFFICE [address]64 ST [facility] OUTPATIEN 6 6 [facility] GELACIO T VISIT 25 PHYSICIAN MINUTES S PERIODIC 21982 MCDANIELS PREVENTIV 6 6 [place] E MED EST PATIENT PHYSICIAN 40-64YRS [facility] ST - OTHER 6 6 [facility] MED 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 ST OFFICE 57997 JESSICA ZA CONSULTAT 6 6 [place] ION NEW/ESTAB PHYSICIAN PATIENT S [address] [facility] 6 6 [place] GELACIO ION NEW/ESTAB PHYSICIAN PATIENT S 60 MIN EMERGENCY 93332 SHAILESH FAN-Shiela DEPT 6 6 EMERGENCY AXWELL VISIT REJI HIGH PHYSICIAN SEVERITY& S THREAT [facility] RADHA - 6 6 [facility]EN [facility] EMERGENCY 81566 MILAGROS SWEENEY 6 6 PHYSICIAN [facility] S [facility] T VISIT HIGH/URGE NT SEVERITY EMERGENCY 28792 RADHA 6 6 [facility] LOW/MODER SEVERITY HOSPITAL RADHA - 6 6 [facility] OFFICE 14825 [facility] DIEGO OUTPATIEN 6 6 PHYSICIAN T NEW 20 GROUP MINUTES EMERGENCY 76296 MILAGROS HERNANDEZ 6 6 PHYSICIAN CARY Owen [facility] T VISIT HIGH/URGE NT SEVERITY HOSPITAL RADHA - 6 6 [facility] RADHA - 6 6 [facility] OUTPATIEN [facility] T OFFICE 57620 [facility] SHAUN OUTPATIEN 6 6 PHYSICIAN STONE T VISIT S GROUP PA-C MUKUND 25 MINUTES HOSPITAL RADHA - 6 6 [facility] OUTPATIEN [facility] T EMERGENCY 68079 MILAGROS STEWART 6 6 PHYSICIAN [facility] S, [facility] T VISIT MODERATE SEVERITY EMERGENCY 23574 RADHA 6 6 [facility] T VISIT LIMITED/M INOR PROB HOSPITAL RADHA - 6 6 [facility] OUTPATIEN [facility] T EMERGENCY 73509 RADHA [address] [facility] T VISIT LOW/MODER SEVERITY HOSPITAL RADHA - 6 6 [facility] OUTPAT[facility]EN [facility] EMERGENCY 87488 MILAGROS HERNANDEZ 6 6 PHYSICIAN [facility], [facility] T VISIT HIGH/URGE NT SEVERITY OFFICE 36359 [facility] JENNY 6 6 PHYSICIAN T VISIT S GROUP 10 MINUTES OFFICE 44110 [facility] PHYSICIAN STONE T VISIT S GROUP PA-C MUKUND 10 MINUTES EMERGENCY 64389 MILAGROS JALLOH 6 6 PHYSICIAN [facility] S, [facility] T VISIT MODERATE SEVERITY EMERGENCY 22043 RADHA 6 [address] [facility] T VISIT LOW/MODER SEVERITY HOSPITAL RADHA - 6 6 [facility]EN [facility] RADHA [facility] 6 6 [facility] OUTPAT[facility] EMERGENCY 72641 RADHA [address] [facility] T VISIT LIMITED/M INOR PROB EMERGENCY 03469 MILAGROS HERRERA 6 6 PHYSICIAN [facility], [facility] T VISIT MODERATE SEVERITY HOSPITAL RADHA - 6 6 [facility] RADHA - 6 6 [facility] OUTPATIEN [facility] T EMERGENCY 42941 RADHA 6 6 [facility] DEPARTMEN INC T VISIT LOW/MODER SEVERITY EMERGENCY 47878 MILAGROS JALLOH 6 6 PHYSICIAN ISAAC DEPARTMEN S, [facility] T VISIT MODERATE SEVERITY HOSPITAL RADHA - 6 6 [facility]EN [facility] RADHA [facility] 6 6 [facility] RADHA - 5 5 [facility] RADHA [facility] 5 5 [facility] OUTPATIEN [facility] T OFFICE 92486 [facility] 5 MEDICAL KERLINE T VISIT SERV 25 FOUNDATIO MINUTES HOSPITAL RADHA - 5 5 [facility] EMERGENCY 84445 RADHA 5 5 [facility] DEPARTMEN [facility] T VISIT LOW/MODER SEVERITY EMERGENCY 84167 MILAGROS JALLOH DEPT 5 5 PHYSICIAN ISAAC VISIT [facility] HIGH SEVERITY& THREAT FUN HOSPITAL RADHA - 5 5 [facility] OUTPATIEN [facility] EMERGENCY 77975 MILAGROS MULTANI, DEPT 5 5 PHYSICIAN CHERIEZ VISIT [facility] HIGH SEVERITY& THREAT [facility] EMERGENCY 96333 RADHA 5 5 [facility] DEPARTMEN [facility] T VISIT HIGH/URGE NT SEVERITY OFFICE 62015 [facility] YEIMI ALVARADO 5 5 PHYSICIAN ISAAC T VISIT S GROUP 10 MINUTES HOSPITAL RADHA - 5 5 [facility] OUT[facility] EMERGENCY 59523 MILAGROS JALLOH 5 5 PHYSICIAN ISAAC DEPARTMEN S, [facility] T VISIT MODERATE SEVERITY EMERGENCY 29236 RADHA 5 5 [facility] DEPARTMEN [facility] T VISIT LOW/MODER SEVERITY OFFICE 40265 [facility] YEIMI ALVARADO 5 5 PHYSICIAN ISAAC T VISIT S GROUP 25 MINUTES EMERGENCY 03851 MILAGROS ESCALANTE 5 5 PHYSICIAN KETAN DEPARTMEN S, PLL[facility] T VISIT MODERATE SEVERITY OFFICE 13964 [facility] YEIMI OUTPATIEN 5 5 PHYSICIAN ISAAC T VISIT S GROUP 15 MINUTES HOSPITAL RADHA - 5 5 [facility] OUTPATIEN INC T EMERGENCY 65439 [facility] 5 5 DEPARTMEN T VISIT HIGH/URGE NT SEVERITY EMERGENCY 67973 SUSHILA Abdalla 5 5 DEPARTMEN T VISIT MODERATE SEVERITY HOSPITAL RADHA - 5 5 [facility] OUTPATIEN INC T OFFICE 34684 [facility] YEIMI OUTPATIEN 5 5 PHYSICIAN ISAAC T VISIT S GROUP 25 MINUTES EMERGENCY 15994 [facility] 5 5 DEPARTMEN T VISIT HIGH/URGE NT SEVERITY EMERGENCY 70789 YEIMI YEIMI 5 5 ISAAC ISAAC DEPARTMEN T VISIT MODERATE SEVERITY HOSPITAL RADHA - 5 5 [facility] OUTPATIEN INC T OFFICE 16447 ANALI [place] ANT OUTPATIEN 5 5 MEDICAL T VISIT SERV 25 FOUNDATIO MINUTES N HOSPITAL RADHA - 5 5 [facility] OUTPATIEN INC T OFFICE 74846 [facility] OUTPATIEN 5 5 PHYSICIAN T VISIT S GROUP 15 MINUTES OFFICE 92409 [facility] YEIMI OUTPATIEN 5 5 PHYSICIAN ISAAC T VISIT S GROUP 15 MINUTES HOSPITAL RADHA - 5 5 [facility] OUTPATIEN INC T OFFICE 79974 [facility] YEIMI OUTPATIEN 5 5 PHYSICIAN ISAAC T VISIT S GROUP 15 MINUTES EMERGENCY 49966 RADHA GUSMAN 4 4 [facility] T VISIT P LOW/MODER SEVERITY HOSPITAL RADHA [place] 4 [facility] OUTPATIEN INC T EMERGENCY 97961 RADHA JEAN BAPTISTE 4 4 [facility] T VISIT P HIGH/URGE NT SEVERITY EMERGENCY 80519 RADHA DE JESUS [address] [facility] T VISIT P HIGH/URGE NT SEVERITY EMERGENCY 24723 RADHA GUSMAN 4 4 [facility] T VISIT P LOW/MODER SEVERITY EMERGENCY 15002 RADHA 4 [address] [facility] T VISIT HIGH/URGE NT SEVERITY HOSPITAL RADHA - 4 4 [facility] RADHA - 4 4 [facility] EMERGENCY 46100 [facility] VORKPOR 4 4 [facility] T VISIT HIGH/URGE NT SEVERITY OFFICE 56962 ANALI DIALLO OUTPATIEN [address] T VISIT SERV 25 FOUNDATIO MINUTES [facility] UNIVERSIT - 4 4 [facility] T EMERGENCY 81856 MARLI HORNE DEPT 4 4 VISIT HIGH SEVERITY& THREAT [facility] RADHA - 4 4 [facility] 52357 ANALI TO OUTPATIEN 4 4 MEDICAL T VISIT SERV 15 FOUNDATIO MINUTES OFFICE 51837 [facility] OUTPATIEN 4 4 PHYSICIAN ISAAC T NEW 30 S [facility] RADHA - 4 4 [facility] EMERGENC[facility] 65709 [facility] VORKPOR DEPT 4 4 [facility] VISIT HIGH SEVERITY& THREAT FUNC EMERGENCY 80272 [facility] VORK[facility] DEPT 4 4 [facility] VISIT HIGH SEVERITY& THREAT FUNC EMERGENCY 59480 [facility] VORK[facility] 4 4 NEAL NEAL DEPARTMEN T VISIT HIGH/URGE NT SEVERITY EMERGENCY 33342 [facility] V[facility]POR 4 4 [facility] DEPARTMEN T VISIT HIGH/URGE NT SEVERITY EMERGENCY 54933 GENESIS WRIGHTRIS 4 4 [facility] DEPARTMEN T VISIT HIGH/URGE NT SEVERITY EMERGENCY 17711 KIT KIT 4 4 IMT IMT DEPARTMEN T VISIT MODERATE SEVERITY EMERGENCY 54375 YEIMI JALLOH 4 4 ISAAC ISAAC DEPARTMEN T VISIT MODERATE SEVERITY EMERGENCY 68264 YEIMI JALLOH DEPT 4 4 ISAAC ISAAC VISIT HIGH SEVERITY& THREAT FUNCJ EMERGENCY 62109 [facility] 4 4 CONRAD BRO DEPARTMEN EMERGENCY T VISIT PHYS HIGH/URGE NT SEVERITY EMERGENCY 93083 [facility] 4 4 CONRAD III JUAN ANTONIO DEPARTMEN EMERGENCY T VISIT PHYS MODERATE SEVERITY OFFICE 57517 RIGOBERTO ALVARADO 4 4 LEE ANN LEE ANN T VISIT 15 MINUTES EMERGENCY 55194 MARLI RAPP DEPT 4 4 VISIT HIGH SEVERITY& THREAT FUNCJ EMERGENCY 64704 EFFIE ANDERS 4 4 BRO BRO DEPARTMEN T VISIT HIGH/URGE NT SEVERITY OFFICE 51466 YARA ANT YARA ANT OUTPATIBROOKE 3 3 T VISIT 15 MINUTES OFFICE 60278 RIGOBERTO ALVARADO 3 3 LEE ANN LEE ANN T VISIT 15 MINUTES EMERGENCY 27550 YEIMI JALLOH 3 3 ISAAC ISAAC DEPARTMEN T VISIT MODERATE SEVERITY EMERGENCY 59521 MARLI RAPP 3 3 DEPARTMEN T VISIT MODERATE SEVERITY OFFICE 16345 RIGOBERTO ALVARADO 3 3 LEE ANN LEE ANN T VISIT 15 MINUTES EMERGENCY 33911 LIAM RAPP 3 3 EMERGENCY DEPARTMEN SERVICES T VISIT HIGH/URGE NT SEVERITY [facility] UN[facility]ERSIT - 3 3 Y [facility] RADHA - 3 3 [facility] EM[facility]GENC[facility] 09530 RAD[facility] [address] [facility] T VISIT LOW/MODER SEVERITY EMERGENCY 21061 CHARY DIEZ 3 3 [facility] T VISIT HIGH/URGE NT SEVERITY EMERGENCY 74284 YEIMI JALLOH DEPT 3 3 [facility] ISAAC VISIT HIGH SEVERITY& THREAT FUNCJ EMERGENCY 27502 RADHA [address] [facility] T VISIT LOW/MODER SEVERITY HOSPITAL RADHA - 3 3 [facility]OSPITAL RADHA - 3 3 [facility] EMERGENCY 50594 CHARY DIEZ 3 3 [facility] T VISIT HIGH/URGE NT SEVERITY EMERGENCY 39053 RADHA 3 3 [facility] T VISIT LOW/MODER SEVERITY EMERGENCY 28077 YEIMI JALLOH 3 3 [facility] DEPARTMEN T VISIT HIGH/URGE NT SEVERITY EMERGENCY 76370 RADHA 3 3 [facility] T VISIT MODERATE SEVERITY HOSPITAL RADHA - 3 3 [facility]PITAL RADHA - 3 3 [facility] RADHA [facility] 3 3 [facility] OFFICE 05451 WENDY NGUYEN CONSULTAT 3 3 BOONE BOONE ION NEW/ESTAB PATIENT 60 MIN EMERGENCY 69517 RADHA [address] [facility] T VISIT MODERATE SEVERITY HOSPITAL RADHA - 3 3 [facility] 97660 MICHAEL RODRIGUEZ DEPT 3 3 III JUAN ANTONIO III JUAN ANTONIO VISIT HIGH SEVERITY& THREAT FUNCJ OFFICE 09240 YARA ANT YARA ANT OUTPATIEN 3 3 T VISIT 15 MINUTES EMERGENCY 45625 RADHA [address] [facility] T VISIT HIGH/URGE NT SEVERITY HOSPITAL RADHA - 2 2 [facility] EMERG[facility] 20877 LIAM RAPP DEPT 2 2 EMERGENCY VISIT SERVICES HIGH SEVERITY& THREAT [facility] OFFICE 11963 RIGOBERTO FRANKLIN OUTPATIEN 2 2 LEE ANN LEE ANN T VISIT 15 MINUTES HOSPITAL RADHA - 2 2 [facility] OFFICE 39651 YARA ANT YARA ANT OUTPATIEN 2 2 T VISIT 25 MINUTES EMERGENCY 65373 RADHA 2 [address] [facility] T VISIT MODERATE SEVERITY EMERGENCY 89293 YEIMI JALLOH 2 2 [facility] T VISIT HIGH/URGE NT SEVERITY HOSPITAL [facility] - 2 2 [facility] - 2 2 [facility] - 2 2 [facility] EMERGENCY 05316 [facility] 2 [address] [facility] T VISIT LOW/MODER SEVERITY EMERGENCY 18164 YEIMI MULLEREY 2 2 [facility] T VISIT HIGH/URGE NT SEVERITY HOSPITAL [facility] - 2 2 [facility] 78245 YARA ANT YARA ANT OUTPATIEN 2 2 T VISIT 25 MINUTES HOSPITAL [facility] - 2 2 [facility] - 2 2 [facility] EM[facility] 80280 MICHAEL RODRIGUEZ 2 2 III JUAN ANTONOI III JUAN ANTONIO DEPARTMEN T VISIT HIGH/URGE NT SEVERITY EMERGENCY 25411 [facility] 2 2 [facility] T VISIT HIGH/URGE NT SEVERITY [facility]OSP[facility] - 2 2 [facility] T EMERGENCY 97819 MICHAEL RODRIGUEZ DEPT 2 2 III JUAN ANTONIO III JUAN ANTONIO VISIT HIGH SEVERITY& THREAT FUNCJ EMERGENCY 70156 LIAM JALLOH DEPT 2 2 EMERGENCY [facility] VISIT SERVICES HIGH SEVERITY& THREAT FUNCJ EMERGENCY 71576 [facility] 2 2 [facility] T VISIT MODERATE SEVERITY HOSPITAL [facility] - 2 2 [facility] OUT[facility] INC T OFFICE 35096 RIGOBERTO ALVARADO 2 2 LEE ANN LEE ANN T VISIT 15 MINUTES EMERGENCY 03406 [facility] 2 2 [facility] DEPARTMEN INC T VISIT MODERATE SEVERITY HOSPITAL [facility] - 2 2 [facility] OUTPATI[facility] INC T EMERGENCY 28406 LIAM JALLOH 2 2 EMERGENCY [facility] DEPARTMEN SERVICES T VISIT HIGH/URGE NT SEVERITY HOSPITAL [facility] - 2 2 [facility] OUTPATI[facility] INC T EMERGENCY 18671 LIAM JALLOH 2 2 EMERGENCY [facility] DEPARTMEN SERVICES T VISIT HIGH/URGE NT SEVERITY EMERGENCY 35962 [facility] 2 2 [facility] DEPARTMEN INC T VISIT LIMITED/M [facility] - 2 2 [facility] T EMERGENCY 52660 [facility] 2 2 [facility] T VISIT MODERATE SEVERITY EMERGENCY 68748 LIAM JALLOH 2 2 EMERGENCY [facility] DEPARTMEN SERVICES T VISIT HIGH/URGE NT SEVERITY OFFICE 26398 ARNOLD ARNOLD OUTPATIEN 2 2 LEE ANN LEE ANN T VISIT 15 MINUTES EMERGENCY 57896 LIAM RODRIGUEZ 2 2 EMERGENCY III JUAN ANTONIO DEPARTMEN SERVICES T VISIT HIGH/URGE NT SEVERITY [facility]OSP[facility] 2 2 [facility] T EMERGENCY 76262 [facility] 2 2 [facility] T VISIT LOW/MODER SEVERITY [facility]OSP[facility] 2 2 [facility] T OFFICE 89559 RIGOBERTO FRANKLIN OUTPATIEN 2 2 LEE ANN LEE ANN T VISIT 15 MINUTES EMERGENCY 65261 [facility] 1 1 [facility] T VISIT HIGH/URGE NT SEVERITY HOSPITAL [facility] - 1 1 [facility] OUTPATIEN INC T EMERGENCY 41007 MICHAEL RODRIGUEZ DEPT 1 1 III JUAN ANTONIO III JUAN ANTONIO VISIT HIGH SEVERITY& THREAT FUNCJ OFFICE 25527 YARA ANT YARA ANT OUTPATIEN 1 1 T VISIT 25 MINUTES HOSPITAL [facility] - 1 1 [facility] OUTPAT[facility] T HOSP[facility] - 1 1 [facility] INC T EMERGENCY 88551 LIAM SPRAGUE DEPT 1 1 EMERGENCY VISIT SERVICES HIGH SEVERITY& THREAT FUNCJ EMERGENCY 48151 [facility] 1 1 [facility] T VISIT HIGH/URGE NT SEVERITY OFFICE 80810 RIGOBERTO FRANKLIN OUTPATIEN 1 1 LEE ANN LEE ANN T VISIT 15 MINUTES HOSPITAL [facility] 1 1 [facility] T EMERGENCY 14912 [facility] 1 1 [facility] T VISIT LOW/MODER SEVERITY EMERGENCY 56115 LIAM TRINH 1 1 EMERGENCY DEPARTMEN SERVICES T VISIT HIGH/URGE NT SEVERITY HOSPITAL [facility] - 1 1 [facility] T EMERGENCY 21586 [facility] 1 1 [facility] T VISIT LOW/MODER SEVERITY EMERGENCY 46807 LIAM JALLOH 1 1 EMERGENCY [facility] DEPARTMEN SERVICES T VISIT HIGH/URGE NT SEVERITY [facility]OSPITAL [facility] 1 1 [facility] [facility] T EMERGENCY 03289 [facility] T VISIT MODERATE SEVERITY EMERGENCY 76448 LIAM SPRAGUE 1 1 EMERGENCY DEPARTMEN SERVICES T VISIT HIGH/URGE NT SEVERITY OFFICE 86897 ANALI YARA [facility] 1 1 MEDICAL T VISIT SERV 25 [facility] RAD[facility] - 1 1 [facility] T EMERGENCY 85110 LIAM RODRIGUEZ DEPT 1 1 EMERGENCY III JUAN ANTONIO VISIT SERVICES HIGH SEVERITY& THREAT FUNCJ EMERGENCY 13669 [facility] 1 1 [facility] DEPARTMEN INC T VISIT HIGH/URGE NT SEVERITY HOSPITAL [facility] - 1 1 [facility] T [facility] - 1 1 [facility] OUT[facility] T EMERGENCY 55086 LIAM JALLOH DEPT 1 1 EMERGENCY ISAAC VISIT SERVICES HIGH SEVERITY& THREAT FUNCJ EMERGENCY 42807 [facility] 1 1 [facility] T VISIT HIGH/URGE NT SEVERITY EMERGENCY 61163 [facility] 1 1 [facility] T VISIT MODERATE SEVERITY [facility] T EMERGENCY 82625 LIAM TRINH 1 1 EMERGENCY DEPARTMEN SERVICES T VISIT HIGH/URGE NT SEVERITY OFFICE 08922 RIGOBERTO FRANKLIN OUTPATIEN 1 1 LEE ANN LEE ANN T VISIT 15 MINUTES OFFICE 47115 RIGOBERTO FRANKLIN OUTHUBEREN 1 1 ELE ANN LEE ANN T VISIT 15 MINUTES [facility]OSPITAL [facility] 1 [facility] T EMERGENCY 41803 LIAM RODRIGUEZ DEPT 1 1 EMERGENCY III JUAN ANTONIO VISIT SERVICES HIGH SEVERITY& THREAT FUNCJ EMERGENCY 07017 [facility] 1 1 [facility] DEPART[facility] T VISIT HIGH/URGE NT SEVERITY OFFICE 87585 [facility] GARCIA OUTPATIEN [address] [facility] - 1 1 [facility] T EMERGENCY 29848 LIAM JALLOH DEPT 1 1 EMERGENCY ISAAC VISIT SERVICES HIGH SEVERITY& THREAT FUNCJ EMERGENCY 33520 [facility] 1 1 [facility] DEPARTMEN INC T VISIT LOW/MODER SEVERITY [facility] 1 [facility] T OFFICE 41547 ANALI TO OUTPATIEN 0 0 MEDICAL T VISIT SERV 25 FOUNDATIO MINUTES EMERGENCY 12170 LIAM JALLOH 0 0 EMERGENCY [facility] DEPARTMEN SERVICES T VISIT HIGH/URGE NT SEVERITY OFFICE 91282 ABHINAVEFRAIN FRANKLIN OUTPATIEN 0 0 LEE ANN LEE ANN T VISIT 15 MINUTES OFFICE 80369 ABHINAVEFRAIN ABHINAVEFRAIN OUTPATIEN 0 0 LEE ANN LEE ANN T VISIT 15 MINUTES EMERGENCY 81818 [facility] 0 0 [facility] DEPARTMEN INC T VISIT LIMITED/M INOR PROB EMERGENCY 94745 LIAM JALLOH 0 0 EMERGENCY ISAAC DEPARTMEN SERVICES T VISIT HIGH/URGE NT SEVERITY [facility]OSP[facility] 0 [facility] T OFFICE 12743 RIGOBERTO LAEFRAIN OUTPATIEN 0 0 LEE ANN LEE ANN T VISIT 15 MINUTES OFFICE 03644 RIGOBERTO LAEFRAIN OUTPATIEN 0 0 LEE ANN LEE ANN T VISIT 15 MINUTES [facility]OSPITAL [facility] 0 0 [facility] T OFFICE 60718 ANALI TO OUTPATIEN 0 0 MEDICAL T VISIT SERV 25 FOUNDATIO MINUTES [facility]OSPITAL [facility] 0 0 [facility] T EMERGENCY 09809 LIAM JALLOH 0 0 EMERGENCY [facility] DEPARTMEN SERVICES T VISIT HIGH/URGE NT SEVERITY EMERGENCY 32145 [facility] 0 0 [facility] DEPARTMEN INC T VISIT LIMITED/M INOR PROB EMERGENCY 90939 [facility] 0 0 [facility] DEPARTMEN INC T VISIT LIMITED/M INOR PROB EMERGENCY 70873 LIAM JALLOH, 0 0 EMERGENCY [facility] DEPARTMEN SERVICES T VISIT HIGH/URGE ASSOCIATE NT S SEVERITY [facility]OSPITAL [facility] 0 [facility] T OFFICE 12770 RIGOBERTO FRANKLIN OUTPATIEN 0 0 MAIRA W MAIRA W T VISIT 15 MINUTES OFFICE 21536 RIGOBERTO FRANKLIN OUTPATIEN 0 0 MAIRA W MAIRA W T VISIT 15 MINUTES HOSPITAL [facility] 0 0 [facility] T EMERGENCY 64941 LIAM JALLOH, 0 0 [facility]ISIT HIGH/URGE ASSOCIATE NT S SEVERITY EMERGENCY 90714 [facility] 0 0 [facility] DEPARTMEN INC T VISIT LOW/MODER SEVERITY OFFICE 10804 RIGOBERTO FRANKLIN OUTPATIEN 0 0 MAIRA W MAIRA W T VISIT 15 MINUTES OFFICE 53460 JENNY MORALES 0 0 MEDICAL [place] T VISIT SERV 25 FOUNDATIO MINUTES OFFICE 34668 RIGOBERTO FRANKLIN OUTPATIEN 0 0 MAIRA Bernal T VISIT 15 MINUTES EMERGENCY 42147 [facility] 0 0 [facility] DEPARTMEN INC T VISIT MODERATE SEVERITY EMERGENCY 95869 LIAM RODRIGUEZ DEPT 0 0 EMERGENCY III, VISIT SERVICES [facility] HIGH SEVERITY& ASSOCIATE THREAT S [facility] - 0 0 [facility]PATIEN INC T EMERGENCY 64664 LIAM RODRIGUEZ DEPT 0 0 EMERGENCY III, VISIT SERVICES [facility] SEVERITY& ASSOCIATE THREAT S [facility] - 0 0 [facility]PAT[facility] INC T OFFICE 91749 RIGOBERTO FRANKLIN OUTPATIEN 0 0 MAIRA Bernal T VISIT 15 MINUTES [facility]OSPITAL [facility] 0 0 [facility] INC T EMERGENCY 91799 [facility] 0 0 [facility] DEPARTMEN INC T VISIT MODERATE SEVERITY [facility]OSP[facility] - 9 9 [facility] T OFFICE 62850 RIGOBERTO FRANKLIN OUTPATIEN 9 9 MAIRA Bernal T VISIT 15 MINUTES OFFICE 93604 JENNY MORALES 9 9 [facility] T VISIT SERV 15 FOUNDATIO MINUTES OFFICE 55739 PHYSICIAN JENNY BLOUNT 9 9 Brayden Juares NEW 30 SERVICES MINUTES PSC OFFICE 10479 RIGOBERTO FRANKLIN OUTPATIEN 9 9 MAIRA Benral T VISIT 15 MINUTES EMERGENCY 25704 LIAM JALLOH, 9 9 EMERGENCY [facility] DEPARTMEN SERVICES T VISIT MODERATE ASSOCIATE SEVERITY [facility] RAD[facility] - 9 9 [facility] OUTPATIEN INC T OFFICE 30500 JENNY MORALES 9 9 MEDICAL [place] T VISIT SERV 25 FOUNDATIO MINUTES OFFICE 08248 RIGOBERTO FRANKLIN OUTPATIEN 9 9 MAIRA Bernal T VISIT 15 MINUTES OFFICE 98507 RIGOBERTO FRANKLIN OUTPATIEN 9 9 MAIRA Bernal T VISIT 15 MINUTES EMERGENCY 38302 [facility] 9 9 [facility] DEPARTMEN INC T VISIT LIMITED/M INOR PROB [facility]OSPITAL [facility] - 9 9 [facility] OUT[facility] INC T EMERGENCY 85351 LIAM OAKLEY, 9 9 EMERGENCY [facility] DEPARTMEN SERVICES T VISIT HIGH/URGE ASSOCIATE NT S SEVERITY EMERGENCY 51040 [facility] 9 9 [facility] DEPARTMEN INC T VISIT LOW/MODER SEVERITY [facility]OSP[facility] - 9 9 [facility] INC T EMERGENCY 57826 LIAM JALLOH, 9 9 EMERGENCY [facility] DEPARTMEN SERVICES T VISIT MODERATE ASSOCIATE SEVERITY S OFFICE 59108 RIGOBERTO FRANKLIN OUTPATIEN 9 9 MAIRA Bernal T VISIT 15 MINUTES OFFICE 17490 SIENNA EL OUTPATIEN 9 9 [facility] T VISIT 25 MINUTES [facility]OSP[facility] 9 9 [facility] T OFFICE 42021 RIGOBERTO FRANKLIN OUTPATIEN 9 9 MAIRA Bernal T VISIT 15 MINUTES [facility]OSPITAL [facility] 9 9 [facility] T OFFICE 82281 SIENNA EL, KRISHNA 9 9 [facility] ION NEW/ESTAB PATIENT 80 MIN OFFICE 69641 JENNY MORALES 9 9 MEDICAL [facility] T VISIT SERV 25 FOUNDATIO MINUTES [facility]OSPITAL [facility] - 9 9 [facility] T EMERGENCY 20925 LIAM FISHMAN, 9 9 EMERGENCY MILE[facility] DEPARTMEN SERVICES O T VISIT HIGH/URGE ASSOCIATE NT S SEVERITY EMERGENCY 37768 [facility] 9 9 [facility] DEPARTMEN INC T VISIT LIMITED/M INOR PROB [facility]OSP[facility] - 9 9 [facility] T OFFICE 80629 RIGOBERTO FRANKLIN OUTPATIEN 9 9 MAIRA Bernal T VISIT 15 MINUTES EMERGENCY 25655 [facility] 9 9 [facility] DEPARTMEN INC T VISIT LOW/MODER SEVERITY EMERGENCY 81519 LIAM JALLOH, 9 9 EMERGENCY SARAH DEPARTMEN SERVICES T VISIT MODERATE ASSOCIATE SEVERITY S [facility]OSP[facility] - 9 9 [facility]PATIEN INC T OFFICE 82954 RIGOBERTO FRANKLIN OUTPATIEN 9 9 MAIRA Bernal T VISIT 15 MINUTES EMERGENCY 11103 [facility], 9 9 [facility] T VISIT PHYS INC HIGH/URGE NT SEVERITY EMERGENCY 91748 LIAM CARRION, DEPT 9 9 EMERGENCY [facility] VISIT SERVICES HIGH SEVERITY& ASSOCIATE THREAT S [facility] RAD[facility] - 9 9 [facility] OUTPATIEN INC T EMERGENCY 95083 [facility] 9 9 [facility] DEPARTMEN INC T VISIT MODERATE SEVERITY OFFICE 59609 RIGOBERTO FRANKLIN OUTPATIEN 9 9 MAIRA Bernal T VISIT 15 MINUTES HOSPITAL [facility] - 9 9 [facility] INC T OFFICE 31669 JENNY MORALES 9 9 PETRA SIMPSON T VISIT SERV 25 FOUNDATIO MINUTES OFFICE 93732 RIGOBERTO FRANKLIN OUTPATIEN 9 9 MAIRA Bernal T VISIT 15 MINUTES HOSPITAL [facility] - 9 9 [facility] INC T EMERGENCY 02219 LIAM OAKLEY, 9 9 EMERGENCY JUDAH P DEPARTMEN SERVICES T VISIT MODERATE ASSOCIATE SEVERITY S EMERGENCY 25941 [facility] 9 9 [facility] DEPARTMEN INC T VISIT LOW/MODER SEVERITY [facility] - 9 9 [facility]PAT[facility]EN [facility] T OFFICE 54924 RIGOBERTO FRANKLIN OUTPATIEN 9 9 MAIRA Bernal T VISIT 15 MINUTES [facility] [place] - 9 9 [facility] EMERGENCY 06368 MARLEN COOPER, DEPT 9 9 [facility] VISIT EMERGENCY HIGH PHYS INC SEVERITY& THREAT FUNJ OFFICE 66635 RIGOBERTO FRANKLIN OUTPATIEN 9 9 MAIRA Bernal T VISIT 15 MINUTES EMERGENCY 29681 [facility] 9 9 [facility] DEPARTMEN INC T VISIT LOW/MODER SEVERITY HOSPITAL [facility] - 9 9 [facility] OUTPATIEN INC T EMERGENCY 64224 LIAM JALLOH, 9 9 EMERGENCY [facility] SERVICES T VISIT HIGH/URGE ASSOCIATE NT S SEVERITY OFFICE 57216 RIGOBERTO FRANKLIN OUTPATIEN 9 9 MAIRA Bernal T VISIT 15 MINUTES EMERGENCY 27572 LIAM OAKLEY DEPT 9 9 EMERGENCY JUDAH P VISIT SERVICES HIGH SEVERITY& ASSOCIATE THREAT S FUNJ EMERGENCY 50504 [facility] 9 9 [facility] DEPARTMEN INC T VISIT HIGH/URGE NT SEVERITY HOSPITAL [facility] - 9 9 [facility] OUTPATIEN INC T OFFICE 36747 RIGOBERTO FRANKLIN OUTPATIEN 9 9 MAIRA Bernal T VISIT 15 MINUTES EMERGENCY 72684 JOSE JALLOH, 9 9 [facility] T VISIT ON HIGH/URGE NT SEVERITY EMERGENCY 74192 [facility] 9 9 [facility] DEPARTMEN INC T VISIT LOW/MODER SEVERITY [facility] - 9 9 [facility] OUTPATIEN INC T OFFICE 05230 [facility], CON[facility]ULTAT [address] [facility] OF NEW/ESTAB PATIENT RIKKI 60 MIN [facility] EMERGENCY 40619 MARLEN GERMAN DEPT 9 9 [facility] [place] VISIT EMERGENCY HIGH PHYS INC SEVERITY& THREAT FUNCJ OFFICE 50463 RIGOBERTO FRANKLIN OUTPATIEN 9 9 MAIRA Bernal T VISIT 15 MINUTES HOSPITAL [facility] - 9 9 [facility] OUTPAT[facility]EN INC T EMERGENCY 78070 JOSE JALLOH, 9 9 [facility] SARAH S DEPARTMEN CORPORATI T VISIT ON LOW/MODER SEVERITY EMERGENCY 45926 [facility] 9 9 [facility] DEPARTMEN INC T VISIT LIMITED/M INOR PROB OFFICE 64828 RIGOBERTO FRANKLIN OUTPATIEN 9 9 MAIRA Bernal T VISIT 15 MINUTES EMERGENCY 38747 JOSE JALLOH, 9 9 [facility] SARAH S DEPARTMEN CORPORATI T VISIT ON MODERATE SEVERITY HOSPITAL [facility] - 9 9 [facility] OUTPATI[facility] INC T EMERGENCY 70384 [facility] 9 9 [facility] DEPARTMEN INC T VISIT LOW/MODER SEVERITY OFFICE 74529 RIGOBERTO FRANKLIN OUTPATIEN 9 9 MAIRA Bernal T VISIT 15 MINUTES EMERGENCY 06659 MARLEN VENTURA DEPT 9 9 [facility] [place] VISIT EMERGENCY HIGH PHYS INC SEVERITY& THREAT FUNCJ EMERGENCY 63660 [facility] 9 9 [facility] DEPARTMEN INC T VISIT LIMITED/M INOR PROB EMERGENCY 92407 JOSE JALLOH, 9 9 [facility] SARAH S DEPARTMEN CORPORATI T VISIT ON MODERATE SEVERITY [facility]OSPITAL [facility] - 9 9 [facility] OUTPATIEN INC T OFFICE 96296 RIGOBERTO FRANKLIN OUTPATIEN 8 8 MAIRA Bernal T VISIT 15 MINUTES OFFICE 34902 RIGOBERTO FRANKLIN OUTPATIEN 8 8 MAIRA RAO W T VISIT 15 MINUTES OFFICE 36460 JENNY MORALES 8 8 MEDICAL [facility] T VISIT SERV 15 FOUNDATIO MINUTES HOSPITAL [facility] - 8 8 [facility] OUTPAT[facility] INC T OFFICE 31908 RIGOBERTO FRANKLIN OUTPATIEN 8 8 MAIRA RAO W T VISIT 15 MINUTES OFFICE 85055 RIGOBERTO FRANKLIN OUTPATIEN 8 8 MAIRA RAO W T VISIT 15 MINUTES OFFICE 99254 [facility] 8 , CALEB ELLIS T VISIT 15 MINUTES [facility]OSPITAL [facility] - 8 8 [facility]EN INC T OFFICE 03255 SCHULSTBUD SCHULSTAD CONSULTAT 8 8 , CALEB ELLIS ION NEW/ESTAB PATIENT 60 MIN OFFICE 18535 RIGOBERTO FRANKLIN OUTPATIEN 8 8 MAIRA RAO W T VISIT 15 MINUTES HOSPITAL [facility] - 8 8 [facility] OUTPATIEN INC T EMERGENCY 97099 [facility] 8 8 [facility] DEPARTMEN INC T VISIT HIGH/URGE NT SEVERITY OFFICE 95004 JENNY MORALES 8 8 MEDICAL [facility] T VISIT SERV 25 FOUNDATIO MINUTES OFFICE 08600 RIGOBERTO FRANKLIN OUTPATIEN 8 8 MAIRA Gabe MAIRA W T VISIT 15 MINUTES OFFICE 06093 RIGOBERTO FRANKLIN OUTPATIEN 8 8 MAIRA Gabe MAIRA W T VISIT 15 MINUTES EMERGENCY 18532 [facility] 8 8 [facility] DEPARTMEN INC T VISIT LIMITED/M INOR PROB HOSPITAL [facility] - 8 8 [facility] OUTPATIEN INC T OFFICE 73632 RIGOBERTO FRANKLIN OUTPATIEN 8 8 MAIRA Bernal T VISIT 15 MINUTES OFFICE 47915 JENNY MORALES 8 8 MEDICAL [facility] T VISIT SERV 25 FOUNDATIO MINUTES EMERGENCY 65303 [facility] DEPT 8 8 Y VISIT HOSPITAL HIGH SEVERITY& THREAT [facility] 60121 ANALI RYAN, 8 8 MEDICAL [facility] DEPARTMEN SERV T VISIT FOUNDATIO HIGH/URGE NT SEVERITY OFFICE 96441 RIGOBERTO FRANKLIN OUTPATIEN 8 8 MAIRA Bernal T VISIT 15 MINUTES HOSPITAL [facility] - 8 8 [facility] OUTPATIEN INC T EMERGENCY 44351 [facility] 8 8 [facility] DEPARTMEN INC T VISIT LIMITED/M INOR PROB [facility]OSPITAL [facility] - 8 8 [facility] OUTPATIEN INC T EMERGENCY 36636 [facility] 8 8 [facility] DEPARTMEN INC T VISIT MODERATE SEVERITY [facility]OSP[facility] - 8 8 [facility] T [facility] - 8 8 [facility] INC T EMERGENCY 99778 JOSE CARRION, 8 8 [facility] T VISIT ON HIGH/URGE NT SEVERITY EMERGENCY 36222 [facility] 8 8 [facility] DEPARTMEN INC T VISIT HIGH/URGE NT SEVERITY [facility]OSPITAL [facility] - 8 8 [facility] OUTPATIEN INC T OFFICE 21807 JENNY MORALES 8 8 [facility] [place] T VISIT SERV 15 FOUNDATIO MINUTES OFFICE 88617 RIGOBERTO FRANKLIN OUTPATIEN 8 8 MAIRA Bernal T VISIT 15 MINUTES HOSPITAL [facility] - 8 8 [facility] OUTPATIEN INC T EMERGENCY 56227 [facility] 8 8 [facility] DEPARTMEN INC T VISIT LIMITED/M INOR PROB EMERGENCY 21053 [facility] 8 8 [facility] DEPARTMEN INC T VISIT LOW/MODER SEVERITY HOSPITAL [facility] - 8 8 [facility] OUTPATIEN [facility] T OFFICE 98253 JENNY MORALES 8 8 PETRA SIMPSON T VISIT SERV 25 FOUNDATIO MINUTES HOSPITAL [facility] - 8 8 [facility] T HOSPITAL [facility] - 8 8 [facility] OUTPATIEN [facility] T EMERGENCY 71824 [facility] 8 8 [facility] DEPARTMEN INC T VISIT LOW/MODER SEVERITY OFFICE 56554 JUANABUD SCHULSTBUD CONSULTAT 8 8 , CALEB ELLIS ION NEW/ESTAB PATIENT 30 MIN HOSPITAL [facility] - 8 8 [facility] OUTPATIEN INC T EMERGENCY 21842 [facility] 8 8 [facility] DEPARTMEN INC T VISIT LOW/MODER SEVERITY HOSPITAL [facility] - 8 8 [facility] OUTPATIEN [facility] T EMERGENCY 60173 [facility] 8 8 [facility] DEPARTMEN INC T VISIT LOW/MODER SEVERITY OFFICE 19671 RIGOBERTO FRANKLIN OUTPATIEN 8 8 MAIRA Bernal T VISIT 15 MINUTES HOSPITAL [facility] - 8 8 [facility] OUTPATIEN INC T EMERGENCY 41148 [facility] 8 8 [facility] DEPARTMEN INC T VISIT LIMITED/M INOR PROB HOSPITAL [facility] - 8 8 [facility] OUTPATIEN INC T OFFICE 36560 YARA [place] OUTPATIEN 8 8 CALVIN SIMPSON T VISIT 25 MINUTES EMERGENCY 02320 [facility] 8 8 [facility] T VISIT LOW/MODER SEVERITY HOSPITAL [facility] - 8 8 [facility] OUTPATIEN [facility] T OFFICE 22214 JENNY MORALES 8 8 MEDICAL [facility] T VISIT SERV 15 FOUNDATIO MINUTES EMERGENCY 43148 [facility] 8 8 [facility] T VISIT LIMITED/M INOR PROB HOSPITAL [facility] - 8 8 [facility] T OFFICE 15634 RIGOBERTO FRANKLIN OUTPATIEN 8 8 MAIRA Bernal T NEW 30 MINUTES EMERGENCY 91389 [facility] GILLIAM, 8 8 [facility] T VISIT PROF SERV MODERATE SEVERITY HOSPITAL [facility] - 8 8 [facility] T EMERGENCY 58456 [facility] 8 8 [facility] T VISIT LOW/MODER SEVERITY EMERGENCY 10670 [facility] 8 8 [facility] T VISIT LOW/MODER SEVERITY EMERGENCY 79395 [facility] GILLIAM[facility] 8 8 [facility] T VISIT PROF SERV MODERATE SEVERITY HOSPITAL [facility] - 8 8 [facility]EN [facility] RADHA - 8 8 [facility] T EMERGENCY 30220 [facility] 8 8 [facility] T VISIT LOW/MODER SEVERITY OFFICE 69069 JENNY MORALES 8 8 [facility] T VISIT SERV 25 FOUNDATIO MINUTES EMERGENCY 35024 RAD[facility] CARRION, 8 8 [facility] T VISIT PROF SERV MODERATE SEVERITY HOSPITAL [facility] - 8 8 [facility] OUTPATIEN [facility] RADHA - 8 8 [facility]
--- OUTSIDE RECORDS SUMMARY | 2016-12-30 18:33 | External Medical Summary Rpt | CCD ---
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 [address] [facility] SURG 7 [facility] PATHOLOGY MED CTR GROSS EXAMINATI ON ONLY ANES LWR 02950 ANESTHESI CHASE ABD 7 A GROUP VENTRAL & PRACTICE INCISIONA L HERNIA REPAIR ANES 43381 ANESTHESI RANDY LOWER 7 A GROUP INTESTINE PRACTICE [place] [address] [place] SIA SURG 7 [facility] PATHOLOGY MED CTR GROSS&ISAAC ROSCOPIC EXAM EGD 55681 [facility] 7 SHARRON BIOPSY SINGLE/MU PHYSICIAN ROMA Owen COLONOSCO [address] [facility] PY 7 SHARRON W/BIOPSY SINGLE/MU PHYSICIAN LTTAMMY Owen C-REACTIV 52503 [facility] CRYOLITE RECOVERY OPERATOR [place] [address] RADIOLOGY [facility] ABDOMEN & 6 KERLINE PELVIS ASSOCIATE W/CONTRAS S OF NOTH T MATERIAL ADMN SET A7003 YOUR YOUR SM VOL 6 PHARMACY PHARMACY [facility] PNEUMAT NEBULIZR DISPBL COMPREHEN 67572 RADHA GARCIA SIVE 6 [facility] [place] [address] RADHA GARCIA INFUSION 6 [facility] THERAPY/P INC INC ROPHYLAXI S /DX 1ST TO 1 HR C-REACTIV 15625 RADHA GARCIA E PROTEIN 6 [facility] INC INC BLOOD 99331 RADHA GARCIA COUNT 6 [facility] COMPLETE INC INC AUTO&AUTO DIFRNTL WBC RADIOLOGI 70195 [facility] ALL C EXAM 6 MEDICAL CHEST 2 IMAGING VIEWS ASS FRONTAL&L ATERAL THERAPEUT 60950 RADHA GARCIA IC 6 [facility] INJECTION INC INC IV PUSH EACH NEW DRUG COMPREHEN 85733 RADHA GARCIA SIVE 6 [facility] METABOLIC INC INC PANEL THER 07327 RADHA GARCIA PROPH/DX 6 [facility] NJX IV INC INC PUSH SINGLE/1S T SBST/[place] [address] RADHA GARCIA ABDOMEN & 6 [facility] PELVIS INC INC W/O CONTRAST MATERIAL BLOOD 09861 RADHA GARCIA COUNT 6 [facility] COMPLETE INC INC AUTO&AUTO DIFRNTL WBC CULTURE 56231 RADHA GARCIA BACTERIAL 6 [facility] INC INC QUANTTATI VE COLONY COUNT URINE URNLS DIP 27484 RADHA GARCIA 6 [facility] STICK/TAB INC INC LET REAGENT AUTO MICROSCOP Y RADEX 71803 [facility] SPINE 6 MEDICAL SANDRA LUMBOSACR IMAGING AL ASS MINIMUM 4 VIEWS C-REACTIV 88987 RADHA GARCIA E PROTEIN 6 [facility] INC INC CHEMOTX 11005 RADHA GARCIA ADMN IV 6 [facility] NFS TQ UP INC INC 1 HR / SBST/DRUG BLOOD 43335 RADHA GARCIA COUNT 6 [facility] COMPLETE INC INC AUTO&AUTO DIFRNTL WBC INJECTION J3380 RADHA GARCIA 6 [facility] VEDOLIZUM INC INC AB 1 MG COMPREHEN 36400 RADHA GARCIA SIVE 6 [facility] METABOLIC INC INC PANEL GROUND A0425 [facility] MILEAGE 6 AMBULANCE AMBULANCE PER SERVICE SERVICE STATUTE MILE THERAPEUT 68439 RADHA GARCIA IC 6 [facility] PROPHYLAC INC INC TIC/DX INJECTION SUBQ/IM AMBULANCE A0429 [facility] SERVICE 6 AMBULANCE AMBULANCE BLS SERVICE SERVICE EMERGENCY TRANSPORT THERAPEUT 78027 [facility] PHYSICIAN STONE PROPHYLAC S GROUP ZUHAIR DUVAL TIC/DX INJECTION SUBQ/IM ADMN SET A7003 YOUR YOUR SM VOL 6 PHARMACY PHARMACY [facility] SAULT PNEUMAT NEBULIZR DISPBL THERAPEUT 42529 [facility] IC 6 PHYSICIAN PHYSICIAN PROPHYLAC S GROUP S GROUP TIC/DX INJECTION SUBQ/IM INJECTION J3380 RADHA GARCIA 6 [facility] VEDOLIZUM INC INC AB 1 MG COMPREHEN 46645 RADHA GARCIA SIVE 6 [facility] METABOLIC INC INC PANEL BLOOD 00393 RADHA GARCIA COUNT 6 [facility] COMPLETE INC INC AUTO&AUTO DIFRNTL WBC CHEMOTX 86447 RADHA GARCIA ADMN IV 6 [facility] NFS TQ UP INC INC 1 HR SBST/DRUG C-REACTIV 33241 RADHA GARCIA E PROTEIN 6 [facility] INC INC ADMN SET A7003 YOUR YOUR SM VOL 6 PHARMACY PHARMACY [facility] SAULT PNEUMAT NEBULIZR DISPBL RADEX ABD 22302 [facility] ALL COMPL 6 MEDICAL AQT ABD IMAGING W/S/E/D ASS VIEWS 1 VIEW CH CHEMOTX 92756 RADHA GARCIA ADMN IV 6 [facility] NFS TQ UP INC INC 1 HR SBST/DRUG BLOOD 58262 RADHA GARCIA COUNT 6 [facility] COMPLETE INC INC AUTO&AUTO DIFRNTL WBC C-REACTIV 64775 RADHA GARCIA E PROTEIN 6 [facility] INC INC COMPREHEN 71048 RADHA GARCIA SIVE 6 [facility] METABOLIC INC INC PANEL INJECTION J3380 RADHA GARCIA 6 [facility] VEDOLIZUM INC INC AB 1 MG INJECTION J3380 RADHA GARCIA 6 [facility] VEDOLIZUM INC INC AB 1 MG COMPREHEN 99584 RADHA GARCIA SIVE 6 [facility] [place] [address] RADHA GARCIA INFUSION 6 [facility] THERAPY/P INC INC ROPHYLAXI S /DX 1ST TO 1 HR C-REACTIV 80039 RADHA GARCIA E PROTEIN 6 [facility] INC INC BLOOD 20877 RADHA GARCIA COUNT 6 [facility] COMPLETE INC INC AUTO&AUTO DIFRNTL WBC BLOOD 52951 RADHA GARCIA COUNT 5 [facility] COMPLETE INC INC AUTO&AUTO DIFRNTL WBC CHEMOTX 95049 RADHA GARCIA ADMN IV 5 [facility] NFS TQ UP INC INC 1 HR SBST/DRUG C-REACTIV 66888 RADHA GARCIA E PROTEIN 5 [facility] INC INC COMPREHEN 18257 RADHA GARCIA SIVE 5 [facility] METABOLIC INC INC PANEL INJECTION C9026 RADHA GARCIA 5 [facility] VEDOLIZUM INC INC AB 1 MG COMPREHEN 88749 RADHA GARCIA SIVE 5 [facility] METABOLIC INC INC PANEL PROTHROMB 10130 RADHA GARCIA IN TIME 5 [facility] INC INC TB CELL 25691 RADHA GARCIA MEDIATED 5 [facility] ANTIGN INC INC RESPNSE GAMMA INTERFERO N COLLECTIO 52168 RADHA GARCIA N VENOUS 5 [facility] BLOOD INC INC VENIPUNCT URE C-REACTIV 34549 RADHA GARCIA E PROTEIN 5 [facility] INC INC 25 29098 RADHA GARCIA HYDROXY 5 [facility] INCLUDES INC INC FRACTIONS IF PERFORMED CYANOCOBA 18856 RADHA GARCIA JAKOB 5 [facility] VITAMIN INC INC B-12 BLOOD 18000 RADHA GARCIA COUNT 5 [facility] COMPLETE INC INC AUTO&AUTO DIFRNTL WBC RADEX 88466 RADHA GARCIA SPINE 5 [facility] CERVICAL INC INC 4 OR 5 VIEWS PRESSURIZ 49457 RADHA GARCIA ED/NONPRE 5 [facility] SSURIZED INC INC INHALATIO N TREATMENT ECG 40308 BESSON BESSON ROUTINE 5 REJI REJI ECG W/LEAST 12 LDS I&R ONLY COMPREHEN 70100 RADHA GARCIA SIVE 5 [facility] METABOLIC INC INC PANEL ECG 52046 RADHA GARCIA ROUTINE 5 [facility] ECG INC INC W/LEAST 12 LDS TRCG ONLY W/O I&R BLOOD 46547 RADHA GARCIA COUNT 5 [facility] COMPLETE INC INC AUTO&AUTO DIFRNTL WBC NATRIURET 61121 RADHA RADHA IC 5 [facility] [place] [address] RADHA RADHA TROPONIN 5 [facility] QUANTITAT INC INC ANIYAH RADIOLOGI 66125 RADHA GARCIA C 5 [facility] EXAMINATI INC INC ON CHEST SINGLE VIEW FRONTAL ADMN SET A7003 YOUR YOUR SM VOL 5 PHARMACY PHARMACY [facility] SAULT PNEUMAT NEBULIZR DISPBL NEBULIZER E0570 WOLF BLOOM WITH 5 HOME HOME COMPRESSO MEDICAL MEDICAL R EQUIPME EQUIPME THERAPEUT 27084 [facility] IC 5 PHYSICIAN ISAAC PROPHYLAC S GROUP TIC/DX INJECTION SUBQ/IM PRESSURIZ 32164 [facility] ED/NONPRE 5 PHYSICIAN ISAAC SSURIZED S GROUP INHALATIO N TREATMENT INJECTION J1040 [facility] 5 PHYSICIAN ISAAC METHYLPRE S GROUP DNISOLONE ACETATE 80 MG RADIOLOGI 44684 [facility] ALL C EXAM 5 MEDICAL CHEST 2 IMAGING VIEWS ASS FRONTAL&L ATERAL COLONOSCO 12495 [place] STEPHEN COOPER PY 5 MEDICAL KERLINE W/BIOPSY SERV SINGLE/MU FOUNDATIO LTIPLE N EGD 59409 RADHA GARCIA TRANSORAL 5 [facility] BIOPSY INC INC SINGLE/MU LTIPLE UNCLASSIF J3490 RADHA GARCIA IED DRUGS 5 [facility] [place] [address] [facility], SURG 5 [facility] PATHOLOGY GROSS&ISAAC ROSCOPIC EXAM RADIOLOGI 91220 [place] [facility] EXAM 5 MEDICAL SANDRA CHEST 2 IMAGING VIEWS ASS FRONTAL&L ATERAL THERAPEUT 78518 [facility] IC 5 PHYSICIAN ISAAC PROPHYLAC S GROUP TIC/DX INJECTION SUBQ/IM MICROSOMA 40563 RADHA GARCIA L 5 [facility] ANTIBODIE INC INC S EACH COMPREHEN 80535 RAD[facility] GARCIA SIVE 5 [facility] [place] [address] RADHA GARCIA THYROID 5 [facility] STIMULATI INC INC NG HORMONE TSH COLLECTIO 20020 [facility] N VENOUS 5 PHYSICIAN ISAAC BLOOD S GROUP VENIPUNCT URE 25 29799 RADHA GARCIA HYDROXY 5 [facility] INCLUDES [place] [address] RADHA GARCIA THYROXINE 5 [facility] [place] [address] RADHA GARCIA TRIIODOTH 5 [facility] YRONINE INC INC T3 FREE RADIOLOGI 89391 [facility] C EXAM 5 MEDICAL SANDRA CHEST 2 IMAGING VIEWS ASS FRONTAL&L ATERAL COMPREHEN 90369 RADHA GARCIA SIVE 5 [facility] METABOLIC INC INC PANEL IRON 63983 RADHA GARCIA BINDING 5 [facility] CAPACITY INC INC BLOOD 27309 RADHA GARCIA COUNT 5 [facility] COMPLETE INC INC AUTO&AUTO DIFRNTL WBC CYANOCOBA 82673 RADHA GARCIA JAKOB 5 [facility] VITAMIN INC INC B-12 25 35338 RADHA GARCIA HYDROXY 5 [facility] INCLUDES [place] [address] RADHA GARCIA IRON 5 [facility] INC INC COLLECTIO 22364 RADHA GARCIA N VENOUS 5 [facility] BLOOD INC INC VENIPUNCT URE C-REACTIV 51073 RADHA GARCIA E PROTEIN 5 [facility] INC INC RADEX 02551 [place] [facility] ABDOMEN 1 5 MEDICAL ROM IMAGING ANTEROPOS ASS TERIOR VIEW RADEX 20741 RADHA GARCIA ABDOMEN 5 [facility] COMPL INC INC W/DCBTS&/ ERC VIEWS OPHTH 55318 SCIFRES SCIFRES MEDICAL 5 ANG ANG XM&EVAL COMPRE NEW PT 1/> VST COMPREHEN 01233 RADHA GARCIA SIVE 5 [facility] [place] [address] RADHA GARCIA THYROID 5 [facility] STIMULATI [place] [address] RADHA GARCIA FREE 5 [facility] THYROXINE INC INC 25 95937 RADHA GARCIA HYDROXY 5 [facility] INCLUDES INC INC FRACTIONS IF PERFORMED BLOOD 51785 RADHA GARCIA COUNT 5 [facility] COMPLETE INC INC AUTO&AUTO DIFRNTL WBC IAADI 21950 RADHA GARCIA INFLUENZA 4 [facility] B VIRUS INC INC IAADI 06100 RADHA GARCIA INFFLUENZ 4 [facility] A A VIRUS INC INC RADIOLOGI 23695 RADHA GARCIA C EXAM 4 [facility] CHEST 2 INC INC VIEWS FRONTAL&L [facility] 10282 [facility] DISCHARGE 4 PHYSICIAN ISAAC DAY S GROUP MANAGEMEN T 30 MIN/< SBSQ 65095 [facility] 4 PHYSICIAN ISAAC CARE/DAY S GROUP 15 MINUTES INITIAL 45613 [facility] 4 PHYSICIAN ISAAC CARE/DAY S GROUP 50 MINUTES ECG 39724 TASHIA LAO JR ROUTINE 4 DWI DWI ECG W/LEAST 12 LDS I&R ONLY RADIOLOGI 40820 [facility] Wolfe 4 MEDICAL SANDRA EXAMINATI IMAGING ON CHEST ASS SINGLE VIEW FRONTAL CT THORAX 14125 [facility] [place] MEDICAL SANDRA W/[place] [address] RADHA GARCIA INFUSION 4 [facility] THERAPY/P INC INC ROPHYLAXI S /DX 1ST TO 1 HR THERAPEUT 06382 RAD[facility] GARCIA IC 4 [facility] INJECTION INC INC IV PUSH EACH NEW DRUG COMPREHEN 05475 RADHA GARCIA SIVE 4 [facility] METABOLIC INC INC PANEL BLOOD 89083 RADHA GARCIA COUNT 4 [facility] COMPLETE INC INC AUTO&AUTO DIFRNTL WBC RADEX ABD 27179 [facility] TERESA COMPL 4 MEDICAL ROM AQT ABD IMAGING W/S/E/D ASS VIEWS 1 VIEW CH BLOOD 12938 [facility] COUNT 4 Y Y COMPLETE [facility] AUTO&AUTO DIFRNTL WBC IRON 03686 [facility] BINDING 4 Y Y [facility] 25 30001 [facility] HYDROXY 4 Y Y INCLUDES HOSPITAL HOSPITAL FRACTIONS IF PERFORMED CYANOCOBA 00001 [facility] JAKOB 4 Y Y VITAMIN [facility] B-12 [place] [address] [facility] FERRITIN 4 Y Y [facility] NZYM 22681 [facility] ACTIV BLD 4 Y Y [facility] CELLS/TIS S NONRADACT SUBSTRATE EA COLLECTIO 51483 [facility] N VENOUS 4 Y Y BLOOD [facility] VENIPUNCT URE C-REACTIV 22842 [facility] E PROTEIN 4 Y Y [facility] COMPREHEN 13876 [facility] SIVE 4 Y Y METABOLIC [facility] PANEL TB CELL 42174 [facility] MEDIATED 4 Y Y ANTIGN [facility] RESPNSE GAMMA INTERFERO N RADIOLOGI 68319 [facility] STATONTERESA C EXAM 4 MEDICAL ROM CHEST 2 IMAGING VIEWS ASS FRONTAL&[place] [address] [facility] BEINEKE UPR W/WO 4 MEDICAL SANDRA GLUCOSE IMAGING W/SM [place] [address] RADHA RADHA TRACT UPR 4 [facility] W/SM INT INC INC W/MULT SERIAL IMAGES BASIC 33465 RADHA RADHA METABOLIC 4 [facility] PANEL INC INC CALCIUM TOTAL RADEX 70608 [facility] TER[facility] ABDOMEN 4 MEDICAL ROM COMPL IMAGING W/DCBTS&/ [place] [address] SHARON CASTILLOUTCHER ABDOMEN & 4 MEDICAL ROM PELVIS IMAGING W/[place] [address] SH[facility]ON TERESA ABDOMEN & 4 MEDICAL ROM PELVIS IMAGING W/O ASS CONTRAST MATERIAL GROUND A0425 SUSAN DAVIS MILEAGE 4 AMBULANCE AMBULANCE PER SERVICE SERVICE STATUTE MILE AMBULANCE A0429 [facility] 4 AMBULANCE AMBULANCE BLS SERVICE SERVICE EMERGENCY TRANSPORT RADEX 13686 SHARON BEINEKE SPINE 4 MEDICAL SANDRA LUMBOSACR IMAGING AL ASS MINIMUM 4 VIEWS RADEX ABD 18799 [facility] TERESA COMPL 4 ROM ROM AQT ABD W/S/E/D VIEWS 1 VIEW CH ECG 82780 MCKEMIE MCKEMIE ROUTINE 3 JR JUAN ANTONIO JR JUAN ANTONIO ECG W/LEAST 12 LDS I&R ONLY RADEX 12132 [facility] TER[facility]A ABDOMEN 1 3 ROM ROM ANTEROPOS TERIOR VIEW REMOVAL 05918 BOTTIGGI BOTTIGGI PERITONEA 3 ANT ANT L FOREIGN BODY FROM CAVITY ANES 01890 JIAN VILLAR INTRAPERI 3 CELESTINE CELESTINE TONEAL UPPER [place]BDOMEN [place] [address] MORRISON MORRISON SURG 3 JUAN ANTONIO JUAN ANTONIO PATHOLOGY GROSS EXAMINATI ON ONLY CUL BACT 16990 RADHA GARCIA XCPT 3 [facility] URINE INC INC BLOOD/STO OL AEROBIC ISOL CUL BACT 42376 RADHA GARCIA AEROBIC 3 [facility] ADDL INC INC METHS DEFINITIV E EA ISOL BASIC 87254 RADHA GARCIA METABOLIC 3 [facility] PANEL INC INC CALCIUM TOTAL BLOOD 31946 RADHA GARCIA COUNT 3 [facility] COMPLETE INC INC AUTO&AUTO DIFRNTL WBC SUSCEPTIB 09284 RADHA GARCIA LTY STDY 3 [facility] ANTIMICRB INC INC IAL MICRO/AGA R DILUTJ COMPREHEN 91189 RADHA GARCIA SIVE 3 [facility] METABOLIC INC INC PANEL BLOOD 41343 RADHA GARCIA COUNT 3 [facility] COMPLETE INC INC AUTO&AUTO DIFRNTL WBC URNLS DIP 65430 RADHA GARCIA 3 [facility] STICK/TAB INC INC [place] [address] RADHA GARCIA AMYLASE 3 [place] [address] RADHA GARCIA LIPASE 3 [facility] INC INC RADIOLOGI 63505 [facility] TER[facility]A C EXAM 3 ROM ROM CHEST 2 VIEWS FRONTAL&L ATERAL RADIOLOGI 80347 [facility] TER[facility] C EXAM 3 ROM ROM CHEST 2 VIEWS FRONTAL&L ATERAL RADIOLOGI 86106 TERES[facility] TERESA C 3 ROM ROM EXAMINATI ON CHEST SINGLE VIEW FRONTAL ANES 98325 [facility] INTRAPERI 3 ANESTH TONEAL OF THE UPPER BLUE ABDOMEN W/[place] V [address] LEON ISAAC LEON ISAAC SURG 3 PATHOLOGY GROSS&ISAAC ROSCOPIC EXAM OPEN AND 4572 RADHA GARCIA OTHER 3 [facility] CECECTOMY INC INC COLECTOMY 17199 JUANASTBUD ARIASSTBUD PRTL 3 BOONE BOONE W/RMVL TERMINAL ILEUM & ILEOCOLOS COMPREHEN 48303 RADHA GARCIA SIVE 3 [facility] METABOLIC INC INC PANEL BLOOD 90237 RADHA GARCIA COUNT 3 [facility] COMPLETE INC INC AUTO&AUTO DIFRNTL WBC BLOOD 57204 RADHA GARCIA COUNT 3 [facility] COMPLETE INC INC AUTO&AUTO DIFRNTL WBC URNLS DIP 10190 RADHA GARCIA 3 [facility] STICK/TAB INC INC LET REAGENT AUTO MICROSCOP Y RADEX ABD 53531 RADHA GARCIA COMPL 3 [facility] AQT ABD INC INC W/S/E/D VIEWS 1 [place] [address] RADHA GARCIA LIPASE 3 [facility] INC INC COMPREHEN 01119 RADHA GARCIA SIVE 3 [facility] METABOLIC INC INC PANEL IAADI 92285 RADHA GARCIA INFLUENZA 3 [facility] B VIRUS INC INC IAADI 89781 RADHA GARCIA INFFLUENZ 3 [facility] A A VIRUS INC INC THER 51502 RADHA GARCIA PROPH/DX 3 [facility] NJX IV INC INC PUSH SINGLE/1S T SBST/DRUG THERAPEUT 38044 RADHA GARCIA IC 3 [facility] INJECTION INC INC IV PUSH EACH NEW DRUG THERAPEUT 91001 RADHA GARCIA IC 2 [facility] INJECTION [place] [address] RADHA GARCIA INFUSION 2 [facility] THERAPY/P INC INC ROPHYLAXI S /DX [address] [place] [address] [place] [address] RADHA THOMASON ABDOMEN & 2 [facility] PELVIS INC INC W/CONTRAS T MATERIAL RADEX 88496 RADHA THOMASON ABDOMEN 1 2 [facility] INC INC ANTEROPOS TERIOR VIEW COMPREHEN 57005 RADHA GARCIA SIVE 2 [facility] [place] [address] RADHA [facility]ARCIA LIPASE 2 [facility] [place] [address] RADHA ARDHA AMYLASE 2 [facility] INC INC LOCM Q9967 RADHA GARCIA [phone] [facility] MG/ML INC INC IODINE CONCENTRA TION PER ML URNLS DIP 96220 RADHA GARCIA 2 [facility] STICK/TAB INC INC LET REAGENT AUTO MICROSCOP Y THER 84649 RADHA GARCIA PROPH/DX 2 [facility] NJX EA INC INC SEQL IV PUSH SBST/DRUG FAC BLOOD 79951 RADHA GARCIA COUNT 2 [facility] COMPLETE INC INC AUTO&AUTO DIFRNTL WBC 3D 14104 RADHA GARCIA RENDERING 2 [facility] INC INC W/INTERP& POSTPROC DIFF WORK STATION SKIN TEST 59177 RADHA RADHA 2 [facility] TUBERCULO INC INC SIS INTRADERM AL RADIOLOGI 14304 SH[facility] MOORE C EXAM 2 MEDICAL ROM CHEST 2 IMAGING VIEWS ASS FRONTAL&L ATERAL COMPREHEN 73597 RADHA THOMASON SIVE 2 [facility] METABOLIC INC INC PANEL BLOOD 85495 RADHA GARCIA COUNT 2 [facility] COMPLETE INC INC AUTO&AUTO DIFRNTL WBC URNLS DIP 28145 [facility] GARCIA 2 [facility] STICK/TAB INC INC LET REAGENT AUTO MICROSCOP Y CULTURE 32582 RAD[facility] GARCIA BACTERIAL 2 [facility] INC QUANTTAT[place] [address] RADHA GARCIA AMYLASE 2 [facility] [place] [address] RADHA GARCIA LIPASE 2 [place] [address] RADHA GARCIA INFUSION 2 [facility] THERAPY INC INC PROPHYLAX IS/DX EA HOUR CUL 05591 RADHA GARCIA PRSMPTV 2 [facility] PTHGNC INC [place] [address] RADHA GARCIA INFUSION 2 [facility] THERAPY/P INC INC ROPHYLAXI S /DX 1ST TO 1 HR EGD 40666 RADHA GARCIA TRANSORAL 2 [facility] BIOPSY INC INC SINGLE/MU LTIPLE ECG 38368 TAMIKA ALEGRIASON ROUTINE 2 REJI REJI ECG W/LEAST 12 LDS I&R ONLY CRITICAL 39779 [facility] 2 ISAAC ISAAC ILL/INJUR ED PATIENT INIT 30-74 MIN URINE 71861 RADHA GARCIA 2 [facility] TEST INC INC VISUAL COLOR CMPRSN METHS URNLS DIP 30779 RADHA GARCIA 2 [facility] STICK/TAB INC INC [place] [address] [place] UPR W/WO 2 MEDICAL ROM GLUCOSE IMAGING W/SM ASS INTEST FOLLW-THR U RADEX 01560 RADHA GARCIA SMALL 2 [facility] INTESTINE INC INC W/MULTIPL E SERIAL IMAGES C-REACTIV 24002 RADHA GARCIA E PROTEIN 2 [facility] INC INC BLOOD 40787 RADHA GARCIA COUNT 2 [facility] COMPLETE INC INC AUTO&AUTO DIFRNTL WBC DETERMINA 58750 JOSE GARCIA RA TION 2 REFRACTIV E STATE OPHTH 19124 JOSE GARCIA RA MEDICAL 2 XM&EVAL COMPRE NEW PT 1/> VST COMPREHEN 26964 RADHA GARCIA SIVE 2 [facility] [place] [address] RADHA THOMASON INFUSION 2 [facility] THERAPY/P INC INC ROPHYLAXI S /DX 1ST TO 1 HR THERAPEUT 46362 RADHAANYI GARCIA IC 2 [facility] INJECTION INC INC IV PUSH EACH NEW DRUG BLOOD 89136 RADHA GARCIA COUNT 2 [facility] COMPLETE INC INC AUTO&AUTO DIFRNTL WBC URNLS DIP 20486 RADHA RADHA 2 [facility] STICK/TAB INC INC [place] [address] RADHA GARCIA LIPASE 2 [facility] [place] [address] RADHA GARCIA AMYLASE 2 [facility] [place] [address] RADHA GARCIA LIPASE 2 [facility] INC INC BLOOD 07264 RADHA GARCIA COUNT 2 [facility] COMPLETE INC INC AUTO&AUTO DIFRNTL WBC COMPREHEN 09952 RADHA GARCIA SIVE 2 [facility] METABOLIC INC INC PANEL THER 39956 RADHA THOMASON PROPH/DX 2 [facility] NJX IV INC INC PUSH SINGLE/1S T SBST/DRUG THERAPEUT 22468 RADHA GARCIA IC 2 [facility] PROPHYLAC INC INC TIC/DX INJECTION SUBQ/IM COMPREHEN 36882 RADHA RADHA SIVE 2 [facility] METABOLIC INC INC PANEL BLOOD 92933 RADHA THOMASON COUNT 2 [facility] COMPLETE INC INC AUTO&AUTO DIFRNTL WBC URNLS DIP 95694 RADHA RADHA 2 [facility] STICK/TAB INC INC [place] [address] RADHA GARCIA LIPASE 2 [facility] [place] [address] RADHA GARCIA AMYLASE 2 [facility] INC INC THERAPEUT 36951 RADHA THOMASON IC 2 [facility] PROPHYLAC INC INC TIC/DX INJECTION SUBQ/IM THERAPEUT 57576 RADHA GARCIA IC 2 [facility] PROPHYLAC INC INC TIC/DX INJECTION SUBQ/IM GROUND A0425 [facility] MILEAGE 2 AMBULANCE AMBULANCE PER SERVICE SERVICE STATUTE MILE RADEX 63046 RADHA GARCIA SPINE 2 [facility] LUMBOSACR INC INC AL MINIMUM 4 VIEWS AMB A0427 [facility] SERVICE 2 AMBULANCE AMBULANCE ALS SERVICE SERVICE EMERGENCY TRANSPORT LEVEL 1 RADEX 90377 RADHA GARCIA RIBS UNI 2 [facility] W/POSTERO INC INC ANT CH MINIMUM 3 VIEWS RADEX HIP 58813 RADHA RADHA 2 [facility] UNILATERA INC INC L COMPLE[place] [address] [place] [address] RADHA GARCIA ABDOMEN & 1 [facility] PELVIS INC INC W/O CONTRAST MATERIAL INJECTION [id number] RADHA GARCIA 1 [facility] ONDANSETR INC INC ON HCL [place] 1 [place] [address] RADHA GARCIA INFUSION 1 [facility] THERAPY/P INC INC ROPHYLAXI S /DX 1ST TO 1 HR HEPATIC 90542 RADHA GARCIA FUNCTION 1 [facility] [place] [address] RADHA GARCIA INFUSION 1 [facility] THERAPY INC INC PROPHYLAX IS/DX EA HOUR URNLS DIP 60181 RADHA GARCIA 1 [facility] STICK/TAB INC INC LET REAGENT AUTO MICROSCOP Y 3D 24495 RADHA GARCIA RENDERING 1 [facility] INC INC W/INTERP& POSTPROC DIFF WORK STATION BASIC 51044 RADHA GARCIA METABOLIC 1 [facility] PANEL INC INC CALCIUM TOTAL BLOOD 93725 RADHA GARCIA COUNT 1 [facility] COMPLETE INC INC AUTO&[place] [address] RADHA GARCIA LIPASE 1 [facility] INC INC INJECTION J1745 RADHA GARCIA 1 [facility] INFLIXIMA INC INC B EXCLUDES BIOSIMILA R 10 [place] [address] RADHA GARCIA INFUSION 1 [facility] THERAPY INC [place] [address] RADHA GARCIA INFUSION 1 [facility] THERAPY/P INC INC ROPHYLAXI S /DX 1ST TO 1 HR RADIOLOGI 99215 RADHA GARCIA C EXAM 1 [facility] CHEST 2 INC INC VIEWS FRONTAL&L ATERAL AMBULANCE A0429 SUSAN DAVIS SERVICE 1 AMBULANCE AMBULANCE BLS SERVICE SERVICE EMERGENCY TRANSPORT INJECTION J2405 RADHA GARCIA 1 [facility] ONDANSETR INC INC ON HCL PER 1 MG COMPREHEN 48256 RADHA GARCIA SIVE 1 [facility] METABOLIC INC INC PANEL IAADI 68033 RADHA GARCIA INFLUENZA 1 [facility] B VIRUS INC INC IAADI 46310 RADHA GARCIA INFFLUENZ 1 [facility] A A VIRUS INC INC GROUND A0425 SUSAN DAVIS MILEAGE 1 AMBULANCE AMBULANCE PER SERVICE SERVICE STATUTE MILE URNLS DIP 30543 RADHA GARCIA 1 [facility] STICK/TAB INC INC LET REAGENT AUTO MICROSCOP Y BLOOD 21632 RADHA GARCIA COUNT 1 [facility] COMPLETE INC INC AUTO&AUTO DIFRNTL WBC 3D 06919 RADHA GARCIA RENDERING 1 [facility] INC INC W/INTERP& POSTPROC DIFF WORK STATION URINE 65853 RADHA GARCIA 1 [facility] TEST INC INC VISUAL COLOR CMPRSN [place]HS [place] SOFT 67355 RADHA GARCIA TISSUE 1 [facility] NECK INC INC W/[place] [address] RADHA GARCIA STREPTOCO 1 [facility] [place] [address] RADHA GARCIA STREPTOCO 1 [facility] CCUS INC INC GROUP A IAADI 54008 RADHA GARCIA INFFLUENZ 1 [facility] A A VIRUS INC INC IAADI 65690 RADHA GARCIA INFLUENZA 1 [facility] [place] [address] RADHA GARCIA INFUSION 1 [facility] THERAPY/P INC INC ROPHYLAXI S /DX 1ST TO [place] [address] RADHA GARCIA INFUSION 1 [facility] THERAPY INC INC PROPHYLAX IS/DX EA HOUR RADIOLOGI 13341 SHARON MOORE C EXAM 1 MEDICAL ROM CHEST 2 IMAGING VIEWS ASS FRONTAL&L ATERAL SKIN TEST 24240 RADHA GARCIA 1 [facility] [place] [address] SHARON MOORE ABDOMEN & 1 MEDICAL ROM PELVIS IMAGING W/O ASS CONTRAST MATERIAL RADIOLOGI 37513 [facility] C EXAM 1 MEDICAL ROM CHEST 2 IMAGING VIEWS ASS FRONTAL&[place] [address] RADHA GARCIA INFUSION 1 [facility] THERAPY/P INC INC ROPHYLAXI S /DX 1ST TO [place] [address] RADHA GARCIA INFUSION 1 [facility] THERAPY INC INC PROPHYLAX IS/DX EA HOUR 3D 82830 [facility] MOORE RENDERING 1 MEDICAL ROM IMAGING W/INTERP& ASS POSTPROC DIFF WORK STATION BLOOD 55795 RADHA GARCIA COUNT 1 [facility] COMPLETE INC INC AUTO&AUTO DIFRNTL WBC URNLS DIP 82413 RADHA RADHA 1 [facility] STICK/TAB INC INC [place] [address] RADHA GARCIA LIPASE 1 [facility] INC INC COMPREHEN 80413 RADHA THOMASON SIVE 1 [facility] METABOLIC INC INC PANEL BLOOD 07303 RADHA GARCIA COUNT 1 [facility] COMPLETE INC INC AUTO&AUTO DIFRNTL WBC BASIC 99832 RADHA GARCIA METABOLIC 1 [facility] PANEL INC INC CALCIUM TOTAL URNLS DIP 52357 RADHA GARCIA 1 [facility] STICK/TAB INC INC LET REAGENT AUTO MICROSCOP Y URNLS DIP 33595 RADHA GARCIA 1 [facility] STICK/TAB INC INC LET REAGENT AUTO MICROSCOP Y BLOOD 16074 RADHA GARCIA COUNT 1 [facility] COMPLETE INC INC AUTO&[place] [address] RADHAAYNI GARCIA INFUSION 1 [facility] THERAPY INC [place] [address] RADHA GARCIA LIPASE 1 [place] [address] RADHA GARCIA AMYLASE 1 [facility] INC INC COMPREHEN 92602 RADHA GARCIA SIVE 1 [facility] [place] [address] RADHA GARCIA INFUSION 1 [facility] THERAPY/P INC INC ROPHYLAXI S /DX 1ST TO 1 HR SKIN TEST 78606 RADHA GARCIA 1 [facility] CENTER SIS INTRADERM AL RADIOLOGI 40859 [place] TERESA C EXAM 1 MEDICAL ROM CHEST 2 IMAGING VIEWS ASS FRONTAL&L ATERAL URNLS DIP 69435 RADHA GARCAI 1 [facility] STICK/TAB INC INC [place] [address] RADHA GARCIA CLOSTRIDI 0 [facility] [place] [address] RADHA GARCIA GIARDIA 0 [facility] INC INC OVA&JACQUELINE 67293 RADHA GARCIA ITES 0 [facility] DIRECT INC INC SMEARS CONCENTRA TION & ID C-REACTIV 36931 RADHA GARCIA E PROTEIN 0 [facility] HIGH INC INC SENSITIVI TY CUL BACT 87456 RADHA GARCIA STOOL 0 [facility] AEROBIC INC INC ISOL SALMONELL A&[place] [address] RADHA GARCIA INFUSION 0 [facility] THER INC INC PROPH ADDL SEQUENT[place] L [place] [address] RADHA GARCIA INFUSION 0 [facility] THERAPY/P INC INC ROPHYLAXI S /DX 1ST TO 1 HR URNLS DIP 31758 RADHA GARCIA 0 [facility] STICK/TAB INC INC LET REAGENT AUTO MICROSCOP Y URNLS DIP 05375 RADHA GARCIA 0 [facility] STICK/TAB INC INC LET REAGENT AUTO MICROSCOP Y BLOOD 72149 RADHA GARCIA COUNT 0 [facility] COMPLETE INC INC AUTO&[place] [address] RADHA GARCIA AMYLASE 0 [place] [address] RADHA GARCIA LIPASE 0 [place] [address] RADHA GARCIA STREPTOCO 0 [facility] CCUS INC INC GROUP A COMPREHEN 80091 RADHA GARCIA SIVE 0 [facility] METABOLIC INC INC PANEL RADEX TOE 36439 SHARON MOORE, MINIMUM 0 MEDICAL CASEY 2 VIEWS IMAGING ASSOCIATE S GROUND A0425 [facility] MILEAGE 0 AMBULANCE AMBULANCE PER SERVICE SERVICE STATUTE MILE AMBULANCE A0429 [facility] SERVICE 0 AMBULANCE AMBULANCE BLS SERVICE SERVICE EMERGENCY TRANSPORT APPL 11716 RADHA GARCIA MODALITY 9 [facility] 1/> AREAS INC INC ELEC STIMJ UNATTENDE D PHYSICAL 90491 RADHA GARCIA THERAPY 9 [facility] EVALUATIO INC INC N THERAPEUT 38960 RADHA GARCIA IC PX 1/> 9 [facility] AREAS INC INC EACH 15 MIN EXERCISES APPLICATI 31042 RADHA GARCIA ON 9 [facility] MODALITY INC INC 1/> AREAS HOT/COLD PACKS APPL 13029 RADHA GARCIA MODALITY 9 [facility] 1/> AREAS INC INC ULTRASOUN D EA 15 MIN PSYCHOLOG 78779 PHYSICIAN TRE[facility] TEST[facility] ADMN BY [facility] TECH NC HR NRV CNDJ 86257 SIENNA EL, AMPLT&LAT 9 KP GOODRICH ENCY EA NRV MOTOR W/F-WAVE STD NRV CNDJ 82829 SIENNA EL, AMPLITUDE 9 KP GOODRICH & LATENCY EACH NERVE SENSORY NDL EMG 1 98214 SIENNA EL XTR W/WO 9 KP GOODRICH RELATED PARASPINA L AREAS MRI 53720 CASEY C TERESA, SPINAL 9 TERESA CASEY CANAL LUMBAR W/O CONTRAST MATERIAL ECHO 94779 RADHA GARCIA TTHRC R-T 9 [facility] 2D INC INC W/WOM-MOD E COMPL SPEC&COLR D 3D 26395 CASEY MOORE, RENDERING 9 TERESA PEÑA W/INTERP & POSTPROCE SS SUPERVISI ON RHEUMATOI 01593 RADHA Buenrostro FACTOR 9 [facility] QUANTITAT INC INC ANIYAH COMPREHEN 86168 RADHA GARCIA SIVE 9 [facility] METABOLIC INC INC PANEL HEMOGLOBI 24916 RADHA GARCIA N 9 [facility] GLYCOSYLA INC INC ANGELA A1C BLOOD 45725 RADHAANYI GARCIA COUNT 9 [facility] COMPLETE INC INC AUTO&AUTO DIFRNTL WBC SYPHILIS 51859 RADHA GARCIA TEST 9 [facility] NON-TREPO INC [place] [address] RADHA GARCIA THYROXINE 9 [facility] TOTAL INC INC CYANOCOBA 50450 RADHA GARCIA JAKOB 9 [facility] VITAMIN INC INC B-12 PROTEIN 96031 RADHA GARCIA ELECTROPH 9 [facility] ORETIC INC INC FRACTJ&[place] [address] RADHA GARCIA FOLIC 9 [facility] [place] [address] RADHA GARCIA THYROID 9 [facility] STIMULATI INC INC NG HORMONE TSH BLOOD 31119 RADHA THOMASON COUNT 9 [facility] COMPLETE INC INC AUTO&AUTO DIFRNTL WBC COMPREHEN 82550 RADHA GARCIA SIVE 9 [facility] METABOLIC INC INC PANEL C-REACTIV 55005 RADHA GARCIA E PROTEIN 9 [facility] HIGH INC INC SENSITIVI TY THERAPEUT 54347 RADHA GARCIA IC 9 [facility] PROPHYLAC INC INC TIC/DX INJECTION SUBQ/IM RADIOLOGI 17920 RADHA GARCIA C EXAM 9 [facility] CHEST 2 INC INC VIEWS FRONTAL&L ATERAL CT PELVIS 56580 [facility] ANALI KOHLER, W/O [address] [place] [address] [facility] ANALI KOHLER, ABDOMEN 9 RADIOLOGY J W/[place] [address] RADHA GARCIA AMYLASE 9 [facility] INC INC URINE 94714 RADHA GARCIA 9 [facility] TEST INC INC VISUAL COLOR CMPRSN METHS URNLS DIP 07517 RADHA GARCIA 9 [facility] STICK/TAB INC INC LET REAGENT AUTO MICROSCOP Y BLOOD 62375 RADHA GARCIA COUNT 9 [facility] COMPLETE INC INC AUTO&AUTO DIFRNTL WBC RADEX 00273 [place] HARLEEN, ABDOMEN 9 MEDICAL [place] P COMPL IMAGING W/DCBTS&/ ASSOCIATE ERC VIEWS S COMPREHEN 94753 RADHA GARCIA SIVE 9 [facility] METABOLIC INC INC PANEL BLOOD 92144 RADHA GARCIA COUNT 9 [facility] COMPLETE INC INC AUTO&AUTO DIFRNTL WBC CYANOCOBA 84000 RADHA GARCIA JAKOB 9 [facility] VITAMIN INC INC B-12 RADEX 48670 [place] HARLEEN, SPINE 9 MEDICAL [facility] SCOLIOS IMAGING STUDY ASSOCIATE W/SUPINE S & ERECT STUDY OBSERVATI 10857 WENDY NGUYEN ON CARE 9 , CALEB CALEB DISCHARGE MANAGEMEN T RADEX ABD 30421 [facility] ANALI KOHLER COMPL 9 RADIOLOGY J AQT ABD W/S/E/D VIEWS 1 VIEW CH INITIAL 39535 WENDY NGUYEN OBSERVATI 9 , CALEB CALEB ON CARE/DAY [address] PELVIS 96522 [facility] ANALI SHEL[place] W/O 9 RADIOLOGY [place] [address] [facility] ANALI SE[place] ABDOMEN 9 RADIOLOGY JUDAH L W/[place] [address] RADHA GARCIA INFUSION 9 [facility] THERAPY/P INC INC ROPHYLAXI S /DX 1ST TO 1 HR RADEX 71149 RADHA GARCIA ABDOMEN 9 [facility] COMPL INC INC W/DCBTS&/ ERC VIEWS COMPREHEN 25018 RADHA GARCIA SIVE 9 [facility] METABOLIC INC INC PANEL URNLS DIP 13223 RADHA RADHA 9 [facility] STICK/TAB INC INC LET REAGENT AUTO MICROSCOP Y BLOOD 62348 RADHA GARCIA COUNT 9 [facility] COMPLETE INC INC AUTO&[place] [address] SHARON CANSECO, HEAD/BRAI 9 MEDICAL [place] P N W/O IMAGING CONTRAST ASSOCIATE MATERIAL S 3D 54012 RADHA GARCIA RENDERING 9 [facility] W/INTERP INC INC & [place] [address] [facility] [place] JOSE F, ABDOMEN 9 RADIOLOGY J W/CONTRAS T [place] PELVIS [address] [facility] [place] JOSE F, 9 RADIOLOGY J W/CONTRAS T [place] PELVIS [address] [facility] [place] CESAR, 9 RADIOLOGY LUIS G W/[place] [address] [facility] [place] CES[place], ABDOMEN 9 RADIOLOGY LUIS G W/CONTRAS T MATERIAL RADEX 86947 RADHA GARCIA SPINE 8 [facility] LUMBOSACR INC INC AL MINIMUM 4 [place] [address] RADHA GARCIA TRACT UPR 8 [facility] W/SM INT INC INC W/[place] [address] [facility] TERESA, UPR W/WO 8 MEDICAL CASEY GLUCOSE IMAGING W/SM ASSOCIATE [place] [address] RADHA GARCIA AMYLASE 8 [facility] [place] [address] RADHA GARCIA LIPASE 8 [facility] [place] [address] RADHA GARCIA THER 8 [facility] PROPH/DX INC INC 1ST >1 HR URNLS DIP 44305 RADHA GARCIA 8 [facility] STICK/TAB INC INC LET REAGENT AUTO MICROSCOP Y AMBULANCE A0429 [facility] SERVICE 8 AMBULANCE AMBULANCE BLS SERVICE SERVICE EMERGENCY TRANSPORT GROUND A0425 [facility]UL[facility] PER SERVICE SERVICE STATUTE MILE COMPREHEN 14820 RADHA GARCIA SIVE 8 [facility] METABOLIC INC INC PANEL BLOOD 07894 RADHA GARCIA COUNT 8 [facility] COMPLETE INC INC AUTO&[place] [address] [facility] ABDOMEN 8 Y Y W/CONTRAS HOSPITAL HOSPITAL T MATERIAL INJECTION J2270 [facility] MORPHINE 8 Y Y [facility] TO [address] P[place]VIS [address] [place] DODSON, 8 MEDICAL [place]UL[place] [address] [facility] INFUSION 8 Y Y [facility] HOSPITAL INITIAL 31 MIN-1 HR THER 59147 [facility] PROPH/DX 8 Y Y NJX EA [facility] SEQL IV PUSH SBST/DRUG SUBCUTANE 85073 [facility] OUS 8 Y Y INFUSION [facility] EACH ADDITIONA L IV PUSH COLLECTIO 60067 [facility] N VENOUS 8 Y Y BLOOD [facility] VENIPUNCT URE GONADOTRO 26380 [facility] PIN 8 Y Y CHORIONIC [facility] QUALITATI VE INJECTION J3010 [facility] FENTANYL 8 Y Y CITRATE [facility] 0.1 MG URNLS DIP 87111 [facility] 8 Y Y STICK/TAB [facility] LET REAGENT AUTO MICROSCOP Y RADEX ABD 02380 [facility] COMPL 8 Y Y AQT ABD [facility] W/S/E/D VIEWS 1 VIEW CH THER 44774 [facility] UNIVERSIT PROPH/DX 8 Y Y NJX IV HOSPITAL HOSPITAL PUSH 1ST SBST/DRUG COMPREHEN 58673 [facility] SIVE 8 Y Y METABOLIC [facility] PANEL RINGERS J7120 [facility] LACTATE 8 Y Y INFUSION [facility] HOSPITAL UP TO 1000 CC BLOOD 52045 [facility] COUNT 8 Y Y COMPLETE [facility]PITAL AUTOMATED INJECTION J2405 [facility] 8 Y [facility] PER 1 MG BLOOD 31808 RADHA GARCIA COUNT 8 [facility] COMPLETE INC INC AUTO&AUTO DIFRNTL WBC COMPREHEN 98954 RADHA GARCIA SIVE 8 [facility] [place] [address] RADHA GARCIA THER 8 [facility] PROPH/DX INC INC 1ST >1 HR RADEX ABD 50487 SHARON CASTILLOUTCHER, COMPL 8 MEDICAL CASEY AQT ABD IMAGING W/S/E/D ASSOCIATE VIEWS 1 [place] [address] RADHA GARCIA LIPASE 8 [facility] [place] [place] [address] RADHA GARCIA AMYLASE 8 [place] [address] RADHA GARCIA AMYLASE 8 [facility] INC INC BILIRUBIN 00874 RADHA GARCIA DIRECT 8 [place] [address] RADHA GARCIA LIPASE 8 [facility] INC INC [place] ABD 38005 SHARON MOORE, COMPL 8 MEDICAL CASEY AQT ABD IMAGING W/S/E/D ASSOCIATE VIEWS 1 S VIEW CH URNLS DIP 03806 RADHA GARCIA 8 [facility] STICK/TAB INC INC LET REAGENT AUTO MICROSCOP Y BLOOD 25363 RADHA GARCIA COUNT 8 [facility] COMPLETE INC INC AUTO&AUTO DIFRNTL WBC COMPREHEN 50919 RADHA GARCIA SIVE 8 [facility] [place] [address] RADHA GARCIA ABDOMEN 8 [facility] W/CONTRAS INC INC T MATERIAL 3D 70818 [place] HARLEEN RENDERING 8 MEDICAL SHELD[place] P IMAGING W/INTERP& ASSOCIATE POSTPROC S DIFF WORK STATION CT PELVIS 17063 RADHA GARCIA 8 [facility] W/CONTRAS INC INC T MATERIAL BLOOD 12370 RADHA GARCIA COUNT 8 [facility] COMPLETE INC INC AUTO&AUTO DIFRNTL WBC C-REACTIV 64379 RADHA GARCIA E PROTEIN 8 [facility] HIGH INC INC SENSITIVI TY BLOOD 87867 RADHA GARCIA COUNT 8 [facility] COMPLETE INC INC AUTO&AUTO DIFRNTL WBC BASIC 13183 RADHA GARCIA METABOLIC 8 [facility] PANEL INC INC CALCIUM TOTAL CYANOCOBA 59303 RADHA GARCIA JAKOB 8 [facility] VITAMIN INC INC B-12 IAADI 30908 RADHA GARCIA INFLUENZA 8 [facility] B VIRUS INC INC IAADI 73799 RADHA GARCIA INFFLUENZ 8 [facility] A A VIRUS INC INC RADIOLOGI 26003 [place] HARLEEN C EXAM 8 MEDICAL [place] P CHEST 2 IMAGING VIEWS ASSOCIATE FRONTAL&L S ATERAL COMPREHEN 58562 RADHA GARCIA SIVE 8 [facility] [place] [address] RADHA GARCIA LIPASE 8 [place] [address] RADHA GARCIA AMYLASE 8 [facility] INC INC BLOOD 77882 RADHA GARCIA COUNT 8 [facility] COMPLETE INC INC AUTO&AUTO DIFRNTL WBC URNLS DIP 02442 RADHA GARCIA 8 [facility] STICK/TAB INC INC [place] [address] RADHA GARCIA THER 8 [facility] PROPH/DX INC INC 1ST >1 HR RADEX ABD 28569 [place] HARLEEN, COMPL 8 MEDICAL [place] P AQT ABD IMAGING W/S/E/D ASSOCIATE VIEWS 1 S VIEW CH CULTURE 35364 RADHA GARCIA BACTERIAL 8 [facility] INC INC QUANTTATI VE COLONY COUNT URINE RADEX 72295 RADHA GARCIA SPINE 8 [facility] THORACIC INC INC 3 VIEWS RADEX 13570 RADHA GARCIA SPINE 8 [facility] CERVICAL INC INC 6 OR MORE VIEWS RADIOLOGI 33410 RADHA GARCIA C EXAM 8 [facility] CHEST 2 INC INC VIEWS FRONTAL&L ATERAL COMPREHEN 20619 RADHA FRIAS 8 [facility] METABOLIC INC INC PAN[place] CT PELVIS 83330 RADHA GARCIA W/O 8 [facility] CONTRAST INC INC MATERIAL URNLS DIP 57716 RADHA GARCIA 8 [facility] STICK/TAB INC INC LET REAGENT AUTO MICROSCOP Y 3D 03617 RADHA GARCIA RENDERING 8 [facility] INC INC W/INTERP& POSTPROC DIFF WORK STATION BLOOD 10370 RADHA GARCIA COUNT 8 [facility] COMPLETE INC INC AUTO&[place] [address] RADHA GARCIA AMYLASE 8 [place] [address] RADHA GARCIA LIPASE 8 [place] [address] RADHA GARCIA ABDOMEN 8 [facility] W/O INC INC CONTRAST MATERIAL RADEX 25917 [place] TERESA, SMALL 8 MEDICAL CASEY INTESTINE IMAGING ASSOCIATE W/[place] [address] PATHOLOGY PATHOLOGY SURG 8 & & PATHOLOGY CYTOLOGY CYTOLOGY LAB LAB GROSS&ISAAC ROSCOPIC EXAM ANES 45921 [facility] 8 ANESTH REY F INTESTINE OF [facility] [place] [address] RADHA GARCIA THER 8 [facility] PROPH/DX INC INC 1ST >1 HR COLONOSCO 82431 ANALI [place]IV[place] PY 8 MEDICAL CALVIN W/BIOPSY SERV SINGLE/MU FOUNDATIO LTIPLE CLOSED 4525 RADHA RADHA [ENDOSCOP 8 [facility] IC] INC INC BIOPSY OF LARGE INTESTINE Encounters Encounter Start End Date Code Location Performer Type Date HOSPITAL [facility] - 7 7 [facility] OUTPATIEN INC T OFFICE 92300 RADHA ALVARADO 7 7 [facility] T NEW 20 INC MINUTES EMERGENCY 61973 SHAILESH ANDINO 7 7 EMERGENCY DEPARTMEN T VISIT PHYSICIAN HIGH/URGE S NT SEVERITY HOSPITAL RADHA - 7 7 [facility] OUTPATIEN INC T EMERGENCY 26449 MILAGROS MULTANI 7 7 PHYSICIAN JR CARY S, [facility] T VISIT MODERATE SEVERITY EMERGENCY 27168 RADHA 7 7 [facility] DEPARTMEN INC T VISIT LOW/MODER SEVERITY [facility] 60190 [facility] 7 7 [place] DEPARTMEN PHYSICIAN T VISIT S MODERATE SEVERITY EMERGENCY 11695 7 7 [facility] DEPARTMEN E T VISIT HOSPITALS LOW/MODER SEVERITY OFFICE 41252 [facility] 7 7 [place] T VISIT 15 PHYSICIAN MINUTES S OFFICE 04439 [facility] 7 7 [place] T VISIT 10 PHYSICIAN MINUTES S EMERGENCY 89851 [place] [facility] 7 7 MEDICAL DEPARTMEN SERV T VISIT FOUNDATIO LIMITED/M N INOR [facility] 7 [facility]GENC[facility] 11925 [facility] 7 7 MEDICAL DEPARTMEN SERV T VISIT FOUNDATIO HIGH/URGE N NT SEVERITY OFFICE 62902 [facility] 7 7 [place] T VISIT 25 PHYSICIAN MINUTES S OFFICE 09103 [facility] 7 7 [place] T VISIT 25 PHYSICIAN MINUTES S EMERGENCY 22419 [facility] 7 7 EMERGENCY VISIT HIGH PHYSICIAN SEVERITY& S THREAT FUN EMERGENCY 35161 [facility] 7 7 EMERGENCY DEPARTMEN T VISIT PHYSICIAN HIGH/URGE S NT SEVERITY EMERGENCY 50972 [facility] 7 7 EMERGENCY VISIT HIGH PHYSICIAN SEVERITY& S THREAT FUN EMERGENCY 11199 [facility] 7 7 EMERGENCY VISIT HIGH PHYSICIAN SEVERITY& S THREAT FUNJ OFFICE 08860 [facility] T VISIT [address] [facility] - 7 7 [facility] OUTPATIEN FT [facility] - 7 [address] [facility] [address] [facility] ST - 7 7 [facility] OUTPATIEN FT T KARINE EMERGENCY 51247 [facility] CUAUHTEMOC 6 6 EMERGENCY N DEPARTMEN T VISIT PHYSICIAN HIGH/URGE S NT SEVERITY OFFICE 73350 [facility] OUTPATIEN 6 6 [facility] GELACIO T VISIT 25 PHYSICIAN MINUTES S PERIODIC 10597 MCDANIELS PREVENTIV 6 6 [facility] E MED EST PATIENT PHYSICIAN 40-[address] [facility] ST - OTHER 6 6 [facility] MED CTR [facility] [employer] ST OFFICE 48604 JESSICA ZA CONSULTAT 6 6 [facility] ION NEW/ESTAB PHYSICIAN PATIENT S [address] [facility] CONSULTAT 6 6 [facility] GELACIO ION NEW/ESTAB PHYSICIAN PATIENT S 60 MIN EMERGENCY 12189 SHAILESH FAN-Shiela DEPT 6 6 EMERGENCY AXWELL VISIT REJI HIGH PHYSICIAN SEVERITY& S THREAT [facility] RADHA - 6 6 [facility] OUTPATIEN [facility] EMERGENCY 62754 [facility] SWEENEY 6 [address] [facility] T VISIT HIGH/URGE NT SEVERITY EMERGENCY 92878 RADHA 6 6 [facility] T VISIT LOW/MODER SEVERITY HOSPITAL RADHA - 6 6 [facility] OUTPATIEN [facility] OFFICE 94902 [facility] OUT[facility] 6 6 PHYSICIAN T NEW 20 GROUP MINUTES EMERGENCY 30690 [facility] HERNANDEZ [address] [facility] T VISIT HIGH/URGE NT SEVERITY HOSPITAL RAD[facility] - 6 6 [facility] RADHA - 6 6 [facility]IEN [facility] T OFFICE 01466 [facility] OUTPATIEN 6 6 PHYSICIAN STONE T VISIT S GROUP PA-C MUKUND 25 MINUTES HOSPITAL RADHA - 6 6 [facility] OUTPATIEN [facility] T EMERGENCY 37242 [facility] STEWART 6 6 PHYSICIAN [facility] S, [facility] T VISIT MODERATE SEVERITY EMERGENCY 15907 RADHA 6 6 [facility] T VISIT LIMITED/M INOR PROB HOSPITAL RADHA - 6 6 [facility] OUTPATIEN [facility] T EMERGENCY 35136 [facility] T VISIT LOW/MODER SEVERITY HOSPITAL RADHA - 6 6 [facility] OUTPATIEN [facility] EMERGENCY 79389 [facility] HERNANDEZ 6 6 PHYSICIAN [facility] S, [facility] T VISIT HIGH/URGE NT SEVERITY OFFICE 36290 [facility] 6 6 PHYSICIAN T VISIT S GROUP 10 MINUTES OFFICE 77555 [facility] PHYSICIAN STONE T VISIT S GROUP PA-C MUKUND 10 MINUTES EMERGENCY 07510 [facility] JALLOH 6 6 PHYSICIAN [facility] S, [facility] T VISIT MODERATE SEVERITY EMERGENCY 68354 RADHA 6 6 [facility] T VISIT LOW/MODER SEVERITY HOSPITAL RADHA - 6 6 [facility] OUTPATIEN [facility] RADHA - 6 6 [facility] OUTPATIEN [facility] EMERGENCY 30330 [facility] T VISIT LIMITED/M INOR PROB EMERGENCY 20779 [facility] HERRERA 6 6 PHYSICIAN [facility] S, [facility] T VISIT MODERATE SEVERITY HOSPITAL RADHA - 6 6 [facility] OUTPATIEN [facility] RADHA - 6 6 [facility] OUTPATIEN [facility] T EMERGENCY 02633 RADHA 6 6 [facility] DEPARTMEN INC T VISIT LOW/MODER SEVERITY EMERGENCY 55909 [facility] JALLOH 6 6 PHYSICIAN [facility] DEPARTMEN S, [facility] T VISIT MODERATE SEVERITY HOSPITAL RADHA - 6 6 [facility] RADHA - 6 6 [facility] RADHA - 5 5 [facility] RADHA - 5 5 [facility] T OFFICE 41426 ANALI BERONICA [facility] KERLINE T VISIT SERV 25 FOUNDATIO MINUTES HOSPITAL [facility] - 5 5 [facility] EMERGENCY 88906 RADHA 5 5 [facility] DEPARTMEN [facility] T VISIT LOW/MODER SEVERITY EMERGENCY 69775 MILAGROS JALLOH DEPT 5 5 PHYSICIAN ISAAC VISIT [facility] HIGH SEVERITY& THREAT FUN [facility]OSP[facility] RADHA - 5 5 [facility] OUTPATIEN [facility] EMERGENCY 69821 MILAGROS MULTANI, DEPT 5 5 PHYSICIAN CHERIEZ VISIT [facility] HIGH SEVERITY& THREAT [facility] EMERGENCY 86542 RADHA 5 5 [facility] DEPARTMEN [facility] T VISIT HIGH/URGE NT SEVERITY OFFICE 41086 [facility] ALVARADO 5 5 PHYSICIAN ISAAC T VISIT S GROUP 10 MINUTES HOSPITAL RADHA - 5 5 [facility]ERGENC[facility] 82805 MILAGROS JALLOH 5 5 PHYSICIAN ISAAC DEPARTMEN S, [facility] T VISIT MODERATE SEVERITY EMERGENCY 29093 RAD[facility] 5 5 [facility] DEPARTMEN [facility] T VISIT LOW/MODER SEVERITY OFFICE 96881 [facility] YEIMI ALVARADO 5 5 PHYSICIAN ISAAC T VISIT S GROUP 25 MINUTES EMERGENCY 36390 MILAGROS ESCALANTE 5 5 PHYSICIAN KETAN DEPARTMEN S, [facility] T VISIT MODERATE SEVERITY OFFICE 65825 [facility] OUTPATIEN 5 5 PHYSICIAN ISAAC T VISIT S GROUP 15 MINUTES HOSPITAL [facility] - 5 5 [facility] INC T EMERGENCY 24163 [facility] 5 5 DEPARTMEN T VISIT HIGH/URGE NT SEVERITY EMERGENCY 40571 SUSHILA Abdalla 5 5 DEPARTMEN T VISIT MODERATE SEVERITY HOSPITAL RADHA - 5 5 [facility] T OFFICE 18088 [facility] OUTPATIEN 5 5 PHYSICIAN ISAAC T VISIT S GROUP 25 MINUTES EMERGENCY 26746 [facility] 5 5 DEPARTMEN T VISIT HIGH/URGE NT SEVERITY EMERGENCY 16504 YEIMI YEIMI 5 5 ISAAC ISAAC DEPARTMEN T VISIT MODERATE SEVERITY HOSPITAL [facility] - 5 5 [facility] INC T OFFICE 76908 ANALI [place] [facility] OUTPATIEN 5 5 MEDICAL T VISIT SERV 25 FOUNDATIO MINUTES N HOSPITAL RADHA - 5 5 [facility] INC T OFFICE 98586 [facility] 5 5 PHYSICIAN T VISIT S GROUP 15 MINUTES OFFICE 77972 [facility] OUTPATI[facility] 5 5 PHYSICIAN ISAAC T VISIT S GROUP 15 MINUTES HOSPITAL [facility] - 5 5 [facility] T OFFICE 93894 [facility] OUTPATIEN 5 5 PHYSICIAN ISAAC T VISIT S GROUP 15 MINUTES EMERGENCY 43123 RADHA GUSMAN 4 4 [facility] T VISIT P LOW/MODER SEVERITY HOSPITAL [facility] [place] 4 [facility] OUTPATIEN INC T EMERGENCY 53878 RADHA JEAN BAPTISTE 4 4 [facility] T VISIT P HIGH/URGE NT SEVERITY EMERGENCY 71511 RADHA DE JESUS 4 4 [facility] T VISIT P HIGH/URGE NT SEVERITY EMERGENCY 88179 RADHA GUSMAN 4 4 [facility] T VISIT P LOW/MODER SEVERITY EMERGENCY 49545 RADHA 4 4 [facility] T VISIT HIGH/URGE NT SEVERITY HOSPITAL RADHA - 4 4 [facility]PITAL RADHA - 4 4 [facility] EMERGENCY 35789 [facility] 4 4 [facility] T VISIT HIGH/URGE NT SEVERITY OFFICE 76469 ANALI DIALLO OUTPATIEN [address] T VISIT SERV [address] [facility] UNIVERSIT - 4 4 [facility] T EMERGENCY 93151 MARLI HORNE DEPT 4 4 VISIT HIGH SEVERITY& THREAT [facility] RADHA - 4 4 [facility] OFFICE 41581 ANALI TO OUTPATIEN 4 4 MEDICAL T VISIT SERV 15 FOUNDATIO MINUTES OFFICE 71341 [facility] OUTPATIEN 4 4 PHYSICIAN ISAAC T NEW 30 S [facility] RADHA - 4 4 [facility] OUTPATIEN [facility] EMERGENCY 67620 [facility] V[facility] DEPT 4 4 [facility] VISIT HIGH SEVERITY& THREAT FUNC EMERGENCY 07438 [facility] DEPT 4 4 [facility] VISIT HIGH SEVERITY& THREAT FUNC EMERGENCY 69570 [facility] VORK[facility] 4 4 NEAL NEAL DEPARTMEN T VISIT HIGH/URGE NT SEVERITY EMERGENCY 07155 [facility] VORKPOR 4 4 [facility] DEPARTMEN T VISIT HIGH/URGE NT SEVERITY EMERGENCY 59144 GENESIS WRIGHTRIS 4 4 [facility] DEPARTMEN T VISIT HIGH/URGE NT SEVERITY EMERGENCY 35424 KIT KIT 4 4 IMT IMT DEPARTMEN T VISIT MODERATE SEVERITY EMERGENCY 38854 YEIMI JALLOH 4 4 ISAAC ISAAC DEPARTMEN T VISIT MODERATE SEVERITY EMERGENCY 59625 YEIMI JALLOH DEPT 4 4 ISAAC ISAAC VISIT HIGH SEVERITY& THREAT FUNCJ EMERGENCY 93835 [facility] 4 4 CONRAD BRO DEPARTMEN EMERGENCY T VISIT PHYS HIGH/URGE NT SEVERITY EMERGENCY 13362 [facility] 4 4 CONRAD III JUAN ANTONIO DEPARTMEN EMERGENCY T VISIT PHYS MODERATE SEVERITY OFFICE 98923 RIGOBERTO ALVARADO 4 4 LEE ANN LEE ANN T VISIT 15 MINUTES EMERGENCY 16170 MARLI RAPP DEPT 4 4 VISIT HIGH SEVERITY& THREAT FUNCJ EMERGENCY 28439 [facility] 4 4 BRO BRO DEPARTMEN T VISIT HIGH/URGE NT SEVERITY OFFICE 47992 YARA ANT YARA ANT OUTPATIBROOKE 3 3 T VISIT 15 MINUTES OFFICE 45194 RIGOBERTO ALVARADO 3 3 LEE ANN LEE ANN T VISIT 15 MINUTES EMERGENCY 15204 YEIMI JALLOH 3 3 ISAAC ISAAC DEPARTMEN T VISIT MODERATE SEVERITY EMERGENCY 06395 MARLI RAPP 3 3 DEPARTMEN T VISIT MODERATE SEVERITY OFFICE 91903 RIGOBERTO ALVARADO 3 3 LEE ANN LEE ANN T VISIT 15 MINUTES EMERGENCY 85625 LIAM RAPP 3 3 EMERGENCY DEPARTMEN SERVICES T VISIT HIGH/URGE NT SEVERITY [facility]ERS[facility] - 3 3 [facility] RADHA [facility] 3 3 [facility] OUTPATIEN [facility] 60811 [facility] 3 [facility] T VISIT LOW/MODER SEVERITY EMERGENCY 24418 CHARY DIEZ 3 3 [facility] T VISIT HIGH/URGE NT SEVERITY EMERGENCY 76534 YEIMI JALLOH DEPT [address] [facility] ISAAC VISIT HIGH SEVERITY& THREAT FUNCJ EMERGENCY 35965 RADHA 3 3 [facility] T VISIT LOW/MODER SEVERITY HOSPITAL RADHA - 3 3 [facility] H[facility]PITAL RADHA [facility] 3 3 [facility] EMERGENCY 57669 CHARY DIEZ 3 3 [facility] T VISIT HIGH/URGE NT SEVERITY EMERGENCY 72768 RADHA 3 3 [facility] T VISIT LOW/MODER SEVERITY EMERGENCY 74737 YEIMI JALLOH 3 3 [facility] DEPARTMEN T VISIT HIGH/URGE NT SEVERITY EMERGENCY 45761 RADHA 3 3 [facility] T VISIT MODERATE SEVERITY HOSPITAL RADHA - 3 3 [facility] HOSPITAL RADHA - 3 3 [facility] INPATIENT [facility] RADHA - 3 3 [facility] OFFICE 53162 WENDY NGUYEN CONSULTAT 3 3 BOONE BOONE ION NEW/ESTAB PATIENT 60 MIN EMERGENCY 88033 [facility] 3 [facility] T VISIT MODERATE SEVERITY HOSPITAL RADHA - 3 3 [facility] 22709 MICHAEL RODRIGUEZ DEPT 3 3 III JUAN ANTONIO III JUAN ANTONIO VISIT HIGH SEVERITY& THREAT FUNCJ OFFICE 29612 YARA ANT YARA ANT OUTPATIEN 3 3 T VISIT 15 MINUTES EMERGENCY 35091 [facility] 2 [facility] T VISIT HIGH/URGE NT SEVERITY HOSPITAL RADHA - 2 2 [facility] OUTPATIEN [facility] EMERGENCY 94262 LIAM RAPP DEPT 2 2 EMERGENCY VISIT SERVICES HIGH SEVERITY& THREAT [facility] OFFICE 00941 RIGOBERTO FRANKLIN OUTPATIEN 2 2 LEE ANN LEE ANN T VISIT 15 MINUTES HOSPITAL RADHA - 2 2 [facility] OUTPATIEN [facility] OFFICE 52932 YARA ANT YARA ANT OUTPATIEN 2 2 T VISIT 25 MINUTES EMERGENCY 44686 RADHA 2 2 [facility] T VISIT MODERATE SEVERITY EMERGENCY 82630 YEIMI JALLOH 2 2 [facility] T VISIT HIGH/URGE NT SEVERITY HOSPITAL RADHA - 2 2 [facility] RADHA - 2 2 [facility] OUTPATIEN [facility] RADHA [facility] 2 2 [facility] OUTPATIEN [facility] EMERGENCY 65407 RADHA 2 2 [facility] T VISIT LOW/MODER SEVERITY EMERGENCY 01721 YEIMI MULLEREY 2 2 [facility] T VISIT HIGH/URGE NT SEVERITY HOSPITAL RADHA - 2 2 [facility] OUTPATIEN [facility] OFFICE 44328 YARA ANT YARA ANT OUTPATIEN 2 2 T VISIT 25 MINUTES HOSPITAL RADHA - 2 2 [facility] OUTPATIEN [facility] RADHA - 2 2 [facility] EMERGENCY 37208 MICHAEL RODRIGUEZ 2 2 III JUAN ANTONIO III JUAN ANTONIO DEPARTMEN T VISIT HIGH/URGE NT SEVERITY EMERGENCY 63200 [facility] 2 2 [facility] DEPART[facility] INC T VISIT HIGH/URGE NT SEVERITY HOSPITAL [facility] - 2 2 [facility] OUTPATIEN INC T EMERGENCY 35175 MICHAEL RODRIGUEZ DEPT 2 2 III JUAN ANTONIO III JUAN ANTONIO VISIT HIGH SEVERITY& THREAT FUNCJ EMERGENCY 11123 LIAM JALLOH DEPT 2 2 EMERGENCY ISAAC VISIT SERVICES HIGH SEVERITY& THREAT FUNCJ EMERGENCY 71162 RADHA 2 2 [facility] DEPARTMEN INC T VISIT MODERATE SEVERITY HOSPITAL RADHA - 2 2 [facility] INC T OFFICE 83460 RIGOBERTO ALVARADO 2 2 LEE ANN LEE ANN T VISIT 15 MINUTES EMERGENCY 89473 RADHA 2 2 [facility] DEPARTMEN INC T VISIT MODERATE SEVERITY HOSPITAL RADHA - 2 2 [facility]PATI[facility] INC T EMERGENCY 18328 LIAM JALLOH [address] [facility] DEPARTMEN SERVICES T VISIT HIGH/URGE NT SEVERITY HOSPITAL RADHA - 2 2 [facility] OUTPATIEN INC T EMERGENCY 24213 LIAM JALLOH [address] [facility] DEPARTMEN SERVICES T VISIT HIGH/URGE NT SEVERITY EMERGENCY 67751 RADHA 2 2 [facility] DEPARTMEN INC T VISIT LIMITED/M INOR [facility]OB [facility] RADHA - 2 2 [facility] OUTPATIEN INC T EMERGENCY 16396 RADHA 2 2 [facility] DEPARTMEN INC T VISIT MODERATE SEVERITY EMERGENCY 37195 LIAM JALLOH [address] [facility] DEPARTMEN SERVICES T VISIT HIGH/URGE NT SEVERITY OFFICE 14897 ARNOLD ARNOLD OUTPATIEN 2 2 LEE ANN LEE ANN T VISIT 15 MINUTES EMERGENCY 19090 LIAM RODRIGUEZ 2 2 EMERGENCY III JUAN ANTONIO DEPARTMEN SERVICES T VISIT HIGH/URGE NT SEVERITY HOSPITAL [facility] - 2 2 [facility] OUTPATIEN INC T EMERGENCY 94963 RAD[facility] 2 2 [facility] DEPARTMEN INC T VISIT LOW/MODER SEVERITY HOSPITAL RAD[facility] - 2 2 [facility] OUTPATIEN INC T OFFICE 08023 RIGOBERTO FRANKLIN OUTPATIEN 2 2 LEE ANN LEE ANN T VISIT 15 MINUTES EMERGENCY 97434 RADHA 1 1 [facility] DEPARTMEN INC T VISIT HIGH/URGE NT SEVERITY HOSPITAL RADHA - 1 1 [facility] OUTPAT[facility] INC T EMERGENCY 03555 MICHAEL RODRIGUEZ DEPT 1 1 III JUAN ANTONIO III JUAN ANTONIO VISIT HIGH SEVERITY& THREAT FUNCJ OFFICE 28766 YARA ANT YARA ANT OUTPATIEN 1 1 T VISIT 25 MINUTES HOSPITAL RADHA - 1 1 [facility] OUT[facility] T HOSPITAL RADHA - 1 1 [facility] OUTPATIEN INC T EMERGENCY 52543 LIAM SPRAGUE DEPT 1 1 EMERGENCY VISIT SERVICES HIGH SEVERITY& THREAT FUNCJ EMERGENCY 26933 RADHA 1 1 [facility] DEPARTMEN INC T VISIT HIGH/URGE NT SEVERITY OFFICE 41001 RIGOBERTO FRANKLIN OUTPATIEN 1 1 LEE ANN LEE ANN T VISIT 15 MINUTES HOSPITAL [facility] - 1 1 [facility] OUTPATIEN INC T EMERGENCY 35508 RAD[facility] 1 1 [facility] DEPARTMEN INC T VISIT LOW/MODER SEVERITY EMERGENCY 57543 LIAM TRINH 1 1 EMERGENCY DEPARTMEN SERVICES T VISIT HIGH/URGE NT SEVERITY HOSPITAL [facility] - 1 1 [facility] OUTPATIEN INC T EMERGENCY 02979 RAD[facility] 1 1 [facility] DEPARTMEN INC T VISIT LOW/MODER SEVERITY EMERGENCY 83918 LIAM JALLOH [address] [facility] DEPARTMEN SERVICES T VISIT HIGH/URGE NT SEVERITY HOSPITAL RADHA - 1 1 [facility] INC T HOSPITAL ARDHA - 1 1 [facility] OUTPATIEN INC T EMERGENCY 33184 RADHA 1 1 [facility] DEPARTMEN INC T VISIT MODERATE SEVERITY EMERGENCY 73356 LIAM [place]AG[place] 1 1 EMERGENCY DEPARTMEN SERVICES T VISIT HIGH/URGE NT SEVERITY OFFICE 99797 ANALI YARA [facility] 1 1 MEDICAL T VISIT SERV 25 [facility] RADHA - 1 1 [facility] OUTPATIEN INC T EMERGENCY 52517 LIAM RODRIGUEZ DEPT 1 1 EMERGENCY III JUAN ANTONIO VISIT SERVICES HIGH SEVERITY& THREAT FUNCJ EMERGENCY 66236 RADHA 1 1 [facility] DEPARTMEN INC T VISIT HIGH/URGE NT SEVERITY HOSPITAL RADHA - 1 1 [facility] OUTPATIEN INC T HOSPITAL RADHA - 1 1 [facility] OUTPATI[facility] INC T EMERGENCY 86263 LIAM JALLOH DEPT 1 1 EMERGENCY ISAAC VISIT SERVICES HIGH SEVERITY& THREAT FUNCJ EMERGENCY 06548 RADHA 1 1 [facility] DEPARTMEN INC T VISIT HIGH/URGE NT SEVERITY EMERGENCY 10197 RAD[facility] 1 1 [facility] DEPARTMEN INC T VISIT MODERATE SEVERITY HOSPITAL [facility] - 1 1 [facility] OUTPATIEN INC T EMERGENCY 84705 LIAM TRINH 1 1 EMERGENCY DEPARTMEN SERVICES T VISIT HIGH/URGE NT SEVERITY OFFICE 21852 RIGOBERTO FRANKLIN OUTPATIEN 1 1 LEE ANN LEE ANN T VISIT 15 MINUTES OFFICE 96993 RIGOBERTO FRANKLIN OUTHUBEREN 1 1 LEE ANN LEE ANN T VISIT 15 MINUTES HOSPITAL RAD[facility] - 1 1 [facility] OUTPATIEN INC T EMERGENCY 63127 LIAM RODRIGUEZ DEPT 1 1 EMERGENCY III JUAN ANTONIO VISIT SERVICES HIGH SEVERITY& THREAT FUNCJ EMERGENCY 02385 RADHA 1 1 [facility] DEPARTMEN INC T VISIT HIGH/URGE NT SEVERITY OFFICE 20981 RADHA GARCIA OUTPATIEN [address] RADHA - 1 1 [facility] OUTPATIEN INC T EMERGENCY 52061 LIAM JALLOH DEPT 1 1 EMERGENCY ISAAC VISIT SERVICES HIGH SEVERITY& THREAT FUNCJ EMERGENCY 39074 RADHA 1 1 [facility] DEPARTMEN INC T VISIT LOW/MODER SEVERITY HOSPITAL RAD[facility] - 1 1 [facility] OUTPATIEN INC T OFFICE 58920 ANALI TO OUTPATIEN 0 0 MEDICAL T VISIT SERV 25 FOUNDATIO MINUTES EMERGENCY 15531 LIAM JALLOH 0 0 EMERGENCY ISAAC DEPARTMEN SERVICES T VISIT HIGH/URGE NT SEVERITY OFFICE 36213 ABHINAVEFRAIN FRANKLIN OUTPATIEN 0 0 LEE ANN LEE ANN T VISIT 15 MINUTES OFFICE 80415 ABHINAVEFRAIN ABHINAVEFRAIN OUTPATIEN 0 0 LEE ANN LEE ANN T VISIT 15 MINUTES EMERGENCY 10357 [facility] 0 0 [facility] DEPARTMEN INC T VISIT LIMITED/M INOR PROB EMERGENCY 66791 LIAM JALLOH 0 0 EMERGENCY ISAAC DEPARTMEN SERVICES T VISIT HIGH/URGE NT SEVERITY HOSPITAL RAD[facility] - 0 0 [facility] OUTPATIEN INC T OFFICE 28005 RIGOBERTO LAEFRAIN OUTPATIEN 0 0 LEE ANN LEE ANN T VISIT 15 MINUTES OFFICE 71253 RIGOBERTO LAEFRAIN OUTPATIEN 0 0 LEE ANN LEE ANN T VISIT 15 MINUTES HOSPITAL RAD[facility] - 0 0 [facility] OUTPATIEN INC T OFFICE 55935 ANALI TO OUTPATIEN 0 0 MEDICAL T VISIT SERV 25 FOUNDATIO MINUTES HOSPITAL RADHA - 0 0 [facility] OUTPATIEN INC T EMERGENCY 88244 LIAM JALLOH [address] [facility] DEPARTMEN SERVICES T VISIT HIGH/URGE NT SEVERITY EMERGENCY 89716 RAD[facility] 0 0 [facility] DEPARTMEN INC T VISIT LIMITED/M INOR PROB EMERGENCY 49044 RAD[facility] 0 0 [facility] DEPARTMEN INC T VISIT LIMITED/M INOR PROB EMERGENCY 82626 LIAM JALLOH, 0 0 EMERGENCY [facility] DEPARTMEN SERVICES T VISIT HIGH/URGE ASSOCIATE NT S SEVERITY HOSPITAL RAD[facility] - 0 0 [facility] OUTPATIEN INC T OFFICE 97292 RIGOBERTO FRANKLIN OUTPATIEN 0 0 MAIRA W MAIRA W T VISIT 15 MINUTES OFFICE 05313 RIGOBERTO FRANKLIN OUTPATIEN 0 0 MAIRA W MAIRA W T VISIT 15 MINUTES HOSPITAL RAD[facility] - 0 0 [facility] OUTPATIEN INC T EMERGENCY 32351 LIAM JALLOH, [address] HIGH/URGE ASSOCIATE NT S SEVERITY EMERGENCY 23673 [facility] 0 0 [facility] DEPARTMEN INC T VISIT LOW/MODER SEVERITY OFFICE 10765 RIGOBERTO FRANKLIN OUTPATIEN 0 0 MAIRA W MAIRA W T VISIT 15 MINUTES OFFICE 98683 JENNY MORALES 0 0 MEDICAL [place] T VISIT SERV 25 FOUNDATIO MINUTES OFFICE 22960 RIGOBERTO FRANKLIN OUTPATIEN 0 0 MAIRA Bernal T VISIT 15 MINUTES EMERGENCY 18480 RAD[facility] 0 0 [facility] DEPARTMEN INC T VISIT MODERATE SEVERITY EMERGENCY 27984 LIAM RODRIGUEZ DEPT 0 0 EMERGENCY III, VISIT SERVICES [facility] HIGH SEVERITY& ASSOCIATE THREAT S [facility] RADHA - 0 0 [facility] OUTPATIEN INC T EMERGENCY 64278 LIAM RODRIGUEZ DEPT 0 0 EMERGENCY III, VISIT SERVICES [facility] SEVERITY& ASSOCIATE THREAT S [facility] RADHA - 0 0 [facility] OUTPATIEN INC T OFFICE 22980 RIGOBERTO FRANKLIN OUTPATIEN 0 0 MAIRA Bernal T VISIT 15 MINUTES HOSPITAL [facility] - 0 0 [facility] OUTPATIEN INC T EMERGENCY 98899 RAD[facility] 0 0 [facility] DEPARTMEN INC T VISIT MODERATE SEVERITY HOSPITAL RAD[facility] - 9 9 [facility] OUTPATIEN INC T OFFICE 75558 RIGOBERTO FRANKLIN OUTPATIEN 9 9 MAIRA Bernal T VISIT 15 MINUTES OFFICE 66803 JENNY MORALES 9 9 MEDICAL [place] T VISIT SERV 15 FOUNDATIO MINUTES OFFICE 98656 PHYSICIAN JENNY BLOUNT 9 9 Brayden Juares NEW 30 SERVICES MINUTES PSC OFFICE 11546 RIGOBERTO FRANKLIN OUTPATIEN 9 9 MAIRA Bernal T VISIT 15 MINUTES EMERGENCY 82955 LIAM JALLOH, 9 9 EMERGENCY [facility] DEPARTMEN SERVICES T VISIT MODERATE ASSOCIATE SEVERITY [facility] RADHA - 9 9 [facility] OUTPATIEN INC T OFFICE 90845 JENNY MORALES 9 9 MEDICAL [place] T VISIT SERV 25 FOUNDATIO MINUTES OFFICE 21422 RIGOBERTO FRANKLIN OUTPATIEN 9 9 MAIRA Bernal T VISIT 15 MINUTES OFFICE 66415 RIGOBERTO FRANKLIN OUTPATIEN 9 9 MAIRA Bernal T VISIT 15 MINUTES EMERGENCY 74625 [facility] 9 9 [facility] DEPARTMEN INC T VISIT LIMITED/M INOR PROB [facility] RAD[facility] - 9 9 [facility] OUTPATIEN INC T EMERGENCY 95326 LIAM OAKLEY, 9 9 EMERGENCY [facility] DEPARTMEN SERVICES T VISIT HIGH/URGE ASSOCIATE NT S SEVERITY EMERGENCY 62841 [facility] 9 9 [facility] DEPARTMEN INC T VISIT LOW/MODER SEVERITY HOSPITAL [facility] - 9 9 [facility] OUTPATIEN INC T EMERGENCY 95575 LIAM JALLOH, 9 9 EMERGENCY [facility] DEPARTMEN SERVICES T VISIT MODERATE ASSOCIATE SEVERITY S OFFICE 10588 RIGOBERTO FRANKLIN OUTPATIEN 9 9 MAIRA Bernal T VISIT 15 MINUTES OFFICE 47390 SIENNA EL OUTPATIEN 9 9 [facility] [place] T VISIT 25 MINUTES HOSPITAL RAD[facility] - 9 9 [facility] OUTPATIEN INC T OFFICE 21616 RIGOBERTO FRANKLIN OUTPATIEN 9 9 MAIRA Bernal T VISIT 15 MINUTES HOSPITAL [facility] - 9 9 [facility] OUTPATI[facility] INC T OFFICE 36437 SIENNA EL, KRISHNA 9 9 KP [place] ION NEW/ESTAB PATIENT 80 MIN OFFICE 19211 JENNY MORALES 9 9 MEDICAL CAL[place] T VISIT SERV 25 FOUNDATIO MINUTES HOSPITAL RADHA - 9 9 [facility] OUTPATIEN INC T EMERGENCY 13036 LIAM FISHMAN, 9 9 EMERGENCY MILENA DEPARTMEN SERVICES O T VISIT HIGH/URGE ASSOCIATE NT S SEVERITY EMERGENCY 94181 [facility] 9 9 [facility] DEPARTMEN INC T VISIT LIMITED/M INOR PROB [facility]OSPITAL [facility] - 9 9 [facility] OUTPATIEN INC T OFFICE 27897 RIGOBERTO FRANKLIN OUTPATIEN 9 9 MAIRA Bernal T VISIT 15 MINUTES EMERGENCY 57290 [facility] 9 9 [facility] DEPARTMEN INC T VISIT LOW/MODER SEVERITY EMERGENCY 47609 LIAM JALLOH, 9 9 EMERGENCY SARAH DEPARTMEN SERVICES T VISIT MODERATE ASSOCIATE SEVERITY S HOSPITAL [facility] - 9 9 [facility] OUTPATIEN INC T OFFICE 97316 RIGOBERTO FRANKLIN OUTPATIEN 9 9 MAIRA Bernal T VISIT 15 MINUTES EMERGENCY 47329 [facility], 9 9 [facility] EM[facility] T VISIT PHYS INC HIGH/URGE NT SEVERITY EMERGENCY 37583 LIAM CARRION, DEPT 9 9 EMERGENCY [place] VISIT SERVICES HIGH SEVERITY& ASSOCIATE THREAT S [facility] RADHA - 9 9 [facility] OUTPATIEN INC T EMERGENCY 27894 [facility] 9 9 [facility] DEPARTMEN INC T VISIT MODERATE SEVERITY OFFICE 34680 RIGOBERTO FRANKLIN OUTPATIEN 9 9 MAIRA Bernal T VISIT 15 MINUTES HOSPITAL [facility] - 9 9 [facility] OUTPATIEN INC T OFFICE 78924 JENNY MORALES 9 9 PETRA SIMPSON T VISIT SERV 25 FOUNDATIO MINUTES OFFICE 11769 RIGOBERTO FRANKLIN OUTPATIEN 9 9 MAIRA Bernal T VISIT 15 MINUTES HOSPITAL [facility] - 9 9 [facility] OUTPATIEN INC T EMERGENCY 34049 LIAM OAKLEY, 9 9 EMERGENCY JUDAH P DEPARTMEN SERVICES T VISIT MODERATE ASSOCIATE SEVERITY S EMERGENCY 92001 [facility] 9 9 [facility] DEPARTMEN INC T VISIT LOW/MODER SEVERITY [facility]OSPITAL [facility] - 9 9 [facility] T OFFICE 28719 RIGOBERTO FRANKLIN OUTPATIEN 9 9 MAIRA Bernal T VISIT 15 MINUTES [facility]OSP[facility] [place] - 9 9 [facility] EMERGENCY 92342 MARLEN COOPER, DEPT 9 9 [facility] [place] [place] VISIT EMERGENCY HIGH PHYS INC SEVERITY& THREAT FUNJ OFFICE 73936 RIGOBERTO FRANKLIN OUTPATIEN 9 9 MAIRA Bernal T VISIT 15 MINUTES EMERGENCY 88609 [facility] 9 9 [facility] DEPARTMEN INC T VISIT LOW/MODER SEVERITY [facility]OSPITAL [facility] - 9 9 [facility] T EMERGENCY 74805 LIAM JALLOH, 9 9 EMERGENCY [facility] SERVICES T VISIT HIGH/URGE ASSOCIATE NT S SEVERITY OFFICE 02386 RIGOBERTO FRANKLIN OUTPATIEN 9 9 MAIRA Bernal T VISIT 15 MINUTES EMERGENCY 41755 LIAM OAKLEY DEPT 9 9 EMERGENCY JUDAH P VISIT SERVICES HIGH SEVERITY& ASSOCIATE THREAT S FUNJ EMERGENCY 82454 [facility] 9 9 [facility] DEPARTMEN INC T VISIT HIGH/URGE NT SEVERITY [facility]OSPITAL [facility] - 9 9 [facility] INC T OFFICE 12883 RIGOBERTO FRANKLIN OUTPATIEN 9 9 MAIRA Bernal T VISIT 15 MINUTES EMERGENCY 09369 JOSE JALLOH, 9 9 [facility] COR[facility] T VISIT ON HIGH/URGE NT SEVERITY EMERGENCY 88628 [facility] 9 9 [facility] DEPARTMEN INC T VISIT LOW/MODER SEVERITY [facility] - 9 9 [facility] T OFFICE 82630 [facility]EN'S DELCDI, CONSULTAT 9 9 [facility] OF NEW/ESTAB PATIENT RIKKI [address] [facility] EMERGENCY 79342 MARLEN GERMAN DEPT 9 9 [facility] [place] VISIT EMERGENCY HIGH PHYS INC SEVERITY& THREAT FUNCJ OFFICE 11824 RIGOBERTO FRANKLIN OUTPATIEN 9 9 MAIRA Bernal T VISIT 15 MINUTES [facility] - 9 9 [facility] T EMERGENCY 77065 JOSE JALLOH, 9 9 [facility] SARAH S DEPARTMEN CORPORATI T VISIT ON LOW/MODER SEVERITY EMERGENCY 46679 [facility] 9 9 [facility] DEPARTMEN INC T VISIT LIMITED/M INOR PROB OFFICE 81452 RIGOBERTO FRANKLIN OUTPATIEN 9 9 MAIRA Bernal T VISIT 15 MINUTES EMERGENCY 34603 JOSE JALLOH, 9 9 [facility] SARAH S DEPARTMEN CORPORATI T VISIT ON MODERATE SEVERITY [facility]OSPITAL [facility] - 9 9 [facility] T EMERGENCY 40835 [facility] 9 9 [facility] DEPARTMEN INC T VISIT LOW/MODER SEVERITY OFFICE 37984 RIGOBERTO FRANKLIN OUTPATIEN 9 9 MAIRA Bernal T VISIT 15 MINUTES EMERGENCY 94284 MARLEN VENTURA DEPT 9 9 [facility] VISIT EMERGENCY HIGH PHYS INC SEVERITY& THREAT FUNCJ EMERGENCY 44088 [facility] 9 9 [facility] DEPARTMEN INC T VISIT LIMITED/M INOR PROB EMERGENCY 65204 JOSE JALLOH, 9 9 [facility] SARAH S DEPARTMEN CORPORATI T VISIT ON MODERATE SEVERITY [facility] - 9 9 [facility] T OFFICE 99842 RIGOBERTO FRANKLIN OUTPATIEN 8 8 MAIRA Bernal T VISIT 15 MINUTES OFFICE 78989 RIGOBERTO FRANKLIN OUTPATIEN 8 8 MAIRA RAO W T VISIT 15 MINUTES OFFICE 74000 JENNY MORALES 8 8 MEDICAL [facility] T VISIT SERV 15 FOUNDATIO MINUTES [facility]OSPITAL [facility] - 8 8 [facility] T OFFICE 36029 RIGOBERTO FRANKLIN OUTPATIEN 8 8 MAIRA RAO W T VISIT 15 MINUTES OFFICE 96272 RIGOBERTO FRANKLIN OUTPATIEN 8 8 MAIRA RAO W T VISIT 15 MINUTES OFFICE 61158 [facility] , CALEB ELLIS T VISIT 15 MINUTES [facility] - 8 8 [facility] T OFFICE 57237 SCHULSTBUD SCHULSTAD CONSULTAT 8 8 , CALEB ELLIS ION NEW/ESTAB PATIENT 60 MIN OFFICE 64212 RIGOBERTO FRANKLIN OUTPATIEN 8 8 MAIRA RAO W T VISIT 15 MINUTES HOSPITAL [facility] - 8 8 [facility] T EMERGENCY 93741 [facility] 8 8 [facility] DEPARTMEN INC T VISIT HIGH/URGE NT SEVERITY OFFICE 42425 JENNY MORALES 8 8 MEDICAL CALVIN T VISIT SERV 25 FOUNDATIO MINUTES OFFICE 88608 RIGOBERTO FRANKLIN OUTPATIEN 8 8 MAIRA Gabe MAIRA W T VISIT 15 MINUTES OFFICE 53315 RIGOBERTO FRANKLIN OUTPATIEN 8 8 MAIRA Gabe MAIRA W T VISIT 15 MINUTES EMERGENCY 81959 [facility] 8 8 [facility] DEPARTMEN INC T VISIT LIMITED/M INOR PROB [facility]OSPITAL [facility] - 8 8 [facility] T OFFICE 84983 RIGOBERTO FRANKLIN OUTPATIEN 8 8 MAIRA Bernal T VISIT 15 MINUTES OFFICE 61569 JENNY MORALES 8 8 MEDICAL CAVLIN T VISIT SERV 25 FOUNDATIO MINUTES EMERGENCY 47540 UNIVERSIT DEPT 8 8 Y VISIT HOSPITAL HIGH SEVERITY& THREAT [facility] UNIVERS - 8 8 [facility] T EMERGENCY 10917 ANALI RYAN, 8 8 MEDICAL [facility] DEPARTMEN SERV T VISIT FOUNDATIO HIGH/URGE NT SEVERITY OFFICE [id number] RIGOBERTO FRANKLIN OUTPATIEN 8 8 MAIRA Bernal T VISIT 15 MINUTES HOSPITAL RADHA - 8 8 [facility] OUTPATIEN INC T EMERGENCY 72897 RAD[facility] 8 8 [facility] DEPARTMEN INC T VISIT LIMITED/M [facility] RADHA - 8 8 [facility] OUTPATIEN INC T EMERGENCY [id number] RAD[facility] 8 8 [facility] DEPARTMEN INC T VISIT MODERATE SEVERITY [facility]OSPITAL [facility] - 8 8 [facility] T HOSPITAL RADHA - 8 8 [facility]PATIEN INC T EMERGENCY 23759 JOSE CARRION, 8 8 [facility] V[facility] ON HIGH/URGE NT SEVERITY EMERGENCY 66370 [facility] 8 8 [facility] DEPARTMEN INC T VISIT HIGH/URGE NT SEVERITY HOSPITAL [facility] - 8 8 [facility] OUTPATIEN INC T OFFICE [id number] JENNY MORALES 8 8 [facility] [place] T VISIT SERV 15 FOUNDATIO MINUTES OFFICE 47364 RIGOBERTO FRANKLIN OUTPATIEN 8 8 MAIRA Bernal T VISIT 15 MINUTES HOSPITAL RADHA - 8 8 [facility] INC T EMERGENCY 67512 RADHA 8 8 [facility] DEPARTMEN INC T VISIT LIMITED/M INOR PROB EMERGENCY 17990 RADHA 8 8 [facility] DEPARTMEN INC T VISIT LOW/MODER SEVERITY HOSPITAL RADHA - 8 8 [facility] OUT[facility]IEN [facility] T OFFICE [id number] JENNY MORALES 8 8 PETRA SIMPSON T VISIT SERV 25 FOUNDATIO MINUTES HOSPITAL RADHA - 8 8 [facility] OUT[facility]EN [facility] T HOSPITAL RADHA - 8 8 [facility]EN [facility] T EMERGENCY 58794 RADHA 8 8 [facility] DEPARTMEN INC T VISIT LOW/MODER SEVERITY OFFICE 10158 JUANABUD SCHULSTBUD CONSULTAT 8 8 , CALEB ELLIS ION NEW/ESTAB PATIENT 30 MIN HOSPITAL [facility] - 8 8 [facility]EN INC T EMERGENCY 66071 RADHA 8 8 [facility] DEPARTMEN INC T VISIT LOW/MODER SEVERITY HOSPITAL RADHA - 8 8 [facility] OUT[facility]IEN [facility] T EMERGENCY 61059 RADHA 8 8 [facility] DEPARTMEN INC T VISIT LOW/MODER SEVERITY OFFICE 37218 RIGOBERTO FRANKLIN OUTPATIEN 8 8 MAIRA Bernal T VISIT 15 MINUTES HOSPITAL RADHA - 8 8 [facility] OUTPATIEN INC T EMERGENCY 60868 RADHA 8 8 [facility] DEPARTMEN INC T VISIT LIMITED/M [facility] RADHA - 8 8 [facility] OUTPATIEN INC T OFFICE 48377 YARA LIVINGSTON OUTPATIEN 8 8 CALVIN SIMPSON T VISIT 25 MINUTES EMERGENCY 51058 RADHA 8 8 [facility] T VISIT LOW/MODER SEVERITY HOSPITAL RADHA - 8 8 [facility] OUTPATIEN [facility] T OFFICE 91858 JENNY MORALES 8 8 [facility] [place] T VISIT SERV 15 FOUNDATIO MINUTES EMERGENCY 25681 RADHA 8 8 [facility] T VISIT LIMITED/M INOR PROB HOSPITAL RADHA - 8 8 [facility] T OFFICE 21567 RIGOBERTO FRANKLIN OUTPATIEN 8 8 MAIRA Bernal T NEW 30 MINUTES EMERGENCY 19295 RADHA GILLIAM, 8 8 [facility] T VISIT PROF SERV MODERATE SEVERITY HOSPITAL RADHA - 8 8 [facility] T EMERGENCY 72599 RADHA 8 8 [facility] T VISIT LOW/MODER SEVERITY EMERGENCY 68164 RADHA 8 8 [facility] T VISIT LOW/MODER SEVERITY EMERGENCY 27629 RADHA GILLIAM, 8 8 [facility] T VISIT PROF SERV MODERATE SEVERITY HOSPITAL RADHA - 8 8 [facility]EN [facility] RADHA - 8 8 [facility] T EMERGENCY 98780 RADHA 8 8 [facility] T VISIT LOW/MODER SEVERITY OFFICE 80118 JENNY MORALES 8 8 [facility] T VISIT SERV 25 FOUNDATIO MINUTES EMERGENCY 71963 RADHA CARRION, 8 8 [facility] T VISIT PROF SERV MODERATE SEVERITY HOSPITAL RADHA - 8 8 [facility] OUTPATIEN [facility] RADHA - 8 8 [facility] OUTPATIEN [facility]
--- OUTSIDE RECORDS SUMMARY | 2016-12-30 18:37 | External Medical Summary Rpt | CCD ---
Demographics Preferred Language Micronesian Marital Status Unknown Rastafari Affiliation Unknown Race Unknown Ethnic Group Unknown Author Author , SINTIA PATRICIO Address Unknown Phone Immunization No patient found.
--- OUTSIDE RECORDS SUMMARY | 2016-12-30 18:37 | External Medical Summary Rpt | CCD ---
Demographics Preferred Language Malawian Marital Status Unknown Samaritan Affiliation Unknown Race Unknown Ethnic Group Unknown Author Author , SINTIA PATRICIO Address Unknown Phone Immunization No patient found.
== END 2016-12-30 17:18 | disposition home or self-care (01) ==
LOC: ER 16:38
DX: S39.012A Strain of muscle, fascia and tendon of lower back, initial encounter (principal); X50.0XXA Overexertion from strenuous movement or load, initial encounter; Y92.89 Other specified places as the place of occurrence of the external cause; F17.210 Nicotine dependence, cigarettes, uncomplicated; F41.8 Other specified anxiety disorders; K21.9 Gastro-esophageal reflux disease without esophagitis

== ENCOUNTER 2017-01-26 17:01 | Emergency (ER) | payer MEDICAID ==
[~2017-01-26] VITALS: Ht 172.7 cm; Wt 49.9 kg
[~2017-01-26 17:01] MED LIST changes: +ROBAXIN 500 MG500 MG PO
--- OUTSIDE RECORDS SUMMARY | 2017-01-26 17:07 | External Medical Summary Rpt | CCD ---
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, THORACIC REGION M51.37 OTHER 01-14-2017 INTERVERTEB RAL DISC DEGENERATIO N, LUMBOSACRAL REGION M54.5 LOW BACK 01-14-2017 PAIN M54.9 DORSALGIA, 01-14-2017 UNSPECIFIED Z88.8 ALLERGY 01-14-2017 STATUS TO OTHER DRUGS, MEDICAMENTS AND BIOLOGICAL SUBSTANCES STATUS J44.9 Chronic 09-17-2016 obstructive pulmonary disease, unspecified M41.9 Scoliosis, 09-17-2016 unspecified M62.838 Other 09-17-2016 muscle spasm G89.18 Other acute 08-30-2016 postprocedu ral pain R10.9 Unspecified 08-30-2016 abdominal pain [id number] Postoperati [facility] E46 Unspecified protein-jaquan orie malnutritio n F32.9 Major depressive disorder, single episode, unspecified F41.9 Anxiety disorder, unspecified G43.909 Migraine, unspecified , not intractable , without status migrainosus G89.29 Other chronic pain J06.9 ACUTE UPPER RESPIRATORY INFECTION, UNSPECIFIED J18.9 PNEUMONIA, UNSPECIFIED ORGANISM J20.9 ACUTE BRONCHITIS, UNSPECIFIED J40 BRONCHITIS, NOT SPECIFIED ACUTE OR CHRONIC J43.2 Centrilobul ar emphysema J44.1 CHRONIC OBSTRUCTIVE PULMONARY DISEASE W (ACUTE) EXACERBATIO N K43.2 Incisional hernia without obstruction or gangrene K43.9 Ventral hernia without obstruction or gangrene 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 K50.90 CROHN'S DISEASE, UNSPECIFIED , WITHOUT COMPLICATIO NS K52.9 NONINFECTIV E GASTROENTER ITIS AND COLITIS, UNSPECIFIED K59.00 Constipatio n, unspecified K62.5 Hemorrhage of anus and rectum L02.211 Cutaneous abscess of abdominal wall M54.2 CERVICALGIA M54.6 Pain in thoracic spine N39.0 Urinary tract infection, site not specified R07.81 PLEURODYNIA R07.89 Other chest pain R07.9 CHEST PAIN, UNSPECIFIED R10.13 Epigastric pain R10.30 Lower abdominal pain, unspecified R10.84 Generalized abdominal pain R11.0 Nausea R11.10 VOMITING, UNSPECIFIED R20.8 Other disturbance s of skin sensation R51 Headache R91.8 Other nonspecific abnormal finding of lung field S16.1XXA STRAIN OF MUSCLE, FASCIA AND TENDON AT NECK LEVEL, INIT S20.229A CONTUSION OF UNSPECIFIED BACK WALL OF THORAX, INIT ENCNTR S33.5XXA SPRAIN OF LIGAMENTS OF LUMBAR SPINE, INITIAL ENCOUNTER T14.8XXA OTHER INJURY OF UNSPECIFIED BODY REGION, INITIAL ENCOUNTER T81.4XXA Infection following a procedure, initial encounter Z09 Encounter for follow-up examination after completed treatment for conditions other than malignant neoplasm Z13.89 Encounter for screening for other disorder Z77.120 CONTACT WITH AND (SUSPECTED) EXPOSURE TO MOLD (TOXIC) Z87.19 PERSONAL HISTORY OF OTHER DISEASES OF THE DIGESTIVE SYSTEM Z98.890 Other specified postprocedu ral states Allergies, Adverse Reactions, Alerts Type Propensity to adverse reactions to drug Adverse Reaction to Substance Substance Reaction Severity Ibuprofen CAUSES NERVOUSNESS Unknown Medications Na ND Rx Da Fi Fi Am Da Di Ph RX Ph St me C No te ll ll ou ys ag ar # ys at rm s nt no ma ic us Or Da si cy ia de te s n re d SO 00 01 0 No DI 40 [...] 41 20 ng RA 40 14 er MN 1 DE Ac ti 10 ve MG [...] MG ve TA BL ET TA KE Vital Signs 04-05-2013 22:43 Name Value Interpretat [...] SQUARE METERS Comment: If this patient is -Yemeni, then multiply the Comment: result by 1.210. [...] blood 19:10 platele t mean volume tk [place] % = 4.9 % 1.7-9.3 complet 017 [...] K/MM3 8 ed Auto 19:15 RBC # 3.74 4.2-5.4 complet Bld 014 M/mm3 ed [...] % 10-50.0 complet 014 ed 19:15 Monocyt 03-21- 3.8 % 1.7-9.3 complet es Fr 014 ed Bld 19:15 Auto Eosinop 03-21-2 5.9 % 0.1-12. complet hil Fr 014 0 ed Bld 19:15 Auto Basophi 03-21-2 0.6 % 0.1-2.0 complet ls Fr 014 ed Bld 19:15 Auto Granulo 03-21-2 3.2 1.8-7.8 complet cytes # 014 K/mm3 ed Bld 19:15 Auto Lymphoc 1.6 0.7-4.5 complet ytes Fr 014 K/mm3 ed Bld 19:15 Auto Monocyt 03-21-2 0.2 0.1-1.0 complet es # 014 K/mm3 ed Bld 19:15 Auto Eosinop 03-21-2 0.3 0.0-0.4 complet hil # 014 K/mm3 ed Bld 19:15 Auto Basophi 03-21-2 0.0 0-0.2 complet ls # 014 K/MM3 ed Bld 19:15 Auto URINALYSIS/COMPLETE (03-21-2013 19:15) URINE 03-21- YELLOW YELLOW complet COLOR 014 ed 19:15 URINE CLEAR CLEAR complet APPEARA 014 ed NCE 19:15 URINE NEGATIV NEG complet GLUCOSE 014 E ed - 19:15 DIPSTIC K URINE NEGATIV NEG complet BILIRUB 014 E ed IN - 19:15 DIPSTIC K URINE NEGATIV NEG complet KETONE 014 E mg/dL ed 19:15 URINE 1.020 1.005-1 complet SPECIFI 014 UNK .030 ed C 19:15 GRAVITY URINE 2+ NEG complet BLOOD 014 ed 19:15 URINE 6.0 UNK 5.0-8.5 complet PH 014 [...] T COMPREHENSIVE METABOLIC PANEL (10-11-2012 20:26) Glucose 10-11- 95 74-106 complet 013 mg/dL ed Bld-mCn [...] 013 mmoL/L ed SerPl-s 20:26 Cnc CO2 10-11-2 28 21.0-32 complet SerPl-s 013 mmoL/L .0 ed Cnc 20:26 Calcium 10-11-2 9.1 8.5-10. complet 013 mg/dL 1 ed SerPl-m 20:26 Cnc Prot 10-11- 8.3 6.4-8.2 complet SerPl-m 013 gm/dL ed Cnc 20:26 Albumin 2 4.3 3.4-5.0 complet 013 gm/dL ed SerPl-m 20:26 Cnc Globuli 10-11-2 4.0 1.3-3.2 complet n 013 gm/dL ed Ser-mCn 20:26 c Albumin 10-11-2 1.1 UNK 1.1-1.8 complet /Glob 013 ed SerPl-m 20:26 Rto Bilirub 2 0.3 0.2-1.0 complet 013 mg/dL ed SerPl-m [...] Bld 013 M/mm3 ed Auto 20:26 Hgb 03-2 12.5 12.2-16 complet Bld-mCn 013 g/dL .2 ed c 20:26 Hct Fr 10-11- 41.1 % 37.0-47 complet Bld 013 .0 ed 20:26 MCV RBC 10-11- 93.6 fl 82.2-97 complet 013 .8 ed 20:26 MCH RBC 10-11-2 28.6 pg 27-31.2 complet Qn 013 ed Auto 20:26 MEAN 30.6 31.8-35 complet CORPUSC 013 g/dl .4 [...] complet APPEARA 013 ed NCE 15:14 URINE 09-04-2 NEGATIV NEG complet GLUCOSE 013 E ed - 15:14 DIPSTIC K URINE 09-04-2 NEGATIV NEG complet BILIRUB 013 E ed [...] (ESTIMA 013 ML/MIN ed ANGELA) 15:55 Sodium 07-12- 138 136-145 complet SerPl-s 013 mmoL/L ed [...] Bld 15:55 Auto URINALYSIS/COMPLETE (06-30-2012 21:25) URINE -22-2 YELLOW YELLOW complet COLOR 013 ed 21:25 URINE -22-2 CLEAR CLEAR complet APPEARA 013 ed NCE 21:25 URINE -22-2 NEGATIV NEG complet GLUCOSE 013 E ed - 21:25 DIPSTIC K URINE 04-22-2 NEGATIV NEG complet BILIRUB 013 E ed IN - 21:25 DIPSTIC K URINE -22-2 NEGATIV NEG complet KETONE 013 E mg/dL ed 21:25 URINE -22-2 1.025 1.005-1 complet SPECIFI 013 UNK .030 ed C 21:25 GRAVITY URINE -22-2 2+ NEG complet BLOOD 013 ed 21:25 URINE -22-2 6.0 UNK 5.0-8.5 complet PH 013 ed 21:25 URINE -22-2 NEGATIV NEG complet PROTEIN 013 E mg/dL ed - 21:25 DIPSTIC K URINE 04-22-2 0.2 NEG complet UROBILI 013 E.U./dL ed NOGEN - 21:25 DIPSTIC K URINE -22-2 NEGATIV NEG complet NITRATE 013 E ed - 21:25 DIPSTIC K URINE 04-22-2 NEGATIV NEG complet LEUK 013 E ed ESTERAS 21:25 E URINE 04-22-2 3-5 0 complet RBC 013 rbc/hpf ed 21:25 URINE -22-2 OCC O complet WBC 013 wbc/hpf ed 21:25 URINE 04-22-2 OCC 0-5 complet SQUAMOU 013 #/hpf ed S CELLS 21:25 URINE 04-22-2 TRACE O complet BACTERI 013 ed A 21:25 URINE -22-2 1+ OCC complet MUCUS 013 ed 21:25 [...] Bld 013 .0 ed 21:15 MCV RBC 06-30-2 93.1 fl 82.2-97 complet 013 .8 ed 21:15 MCH RBC 06-30-2 28.4 pg 27-31.2 complet Qn 013 ed Auto 21:15 MEAN 2 30.5 31.8-35 complet CORPUSC 013 g/dl .4 ed ULAR 21:15 HGB CONC RDW RBC 06-30-2 14.0 % 11.5-17 complet Auto 013 .5 ed 21:15 Platele 06-30-2 392 142-424 complet t Bld 013 K/mm3 [...] 013 K/mm3 ed Bld 21:15 Auto Lymphoc 06-30-2 1.4 0.7-4.5 complet ytes Fr 013 K/mm3 ed Bld 21:15 Auto Monocyt 22-2 0.4 0.1-1.0 complet es # 013 K/mm3 ed Bld 21:15 Auto Eosinop 06-30-2 0.2 0.0-0.4 complet hil # 013 K/mm3 ed Bld 21:15 Auto Basophi 06-30-2 0.0 0-0.2 complet ls # 013 K/MM3 ed Bld 21:15 Auto Encounters Encounter Start End Date Code Location Performer Type Date Emergency LIZETTE Mendoza MD (ER) 4 20:36 4 22:44 [facility] Emergency LIZETTE MCNAMARA MD (ER) 4 18:43 4 20:06 [facility] Emergency LIZETTE Escudero MD (ER) 3 17:45 3 18:59 [facility] Emergency LIZETTE Mendoza MD (ER) 3 16:38 3 17:11 [facility] Emergency LIZETTE Escudero MD (ER) 3 20:44 3 21:15 [facility] Emergency LIZETTE Mendoza MD (ER) 3 14:40 3 16:39 [facility] Emergency LIZETTE DIEZ (ER) 3 16:51 3 18:46 [facility] Emergency LIZETTE Escudero MD (ER) 3 21:28 3 22:25 [facility] Emergency LIZETTE DIEZ (ER) 3 14:18 3 16:42 [facility] Emergency LIZETTE Escudero MD (ER) 3 21:00 3 22:57 [facility]
--- OUTSIDE RECORDS SUMMARY | 2017-01-26 17:07 | External Medical Summary Rpt | CCD ---
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 [...] blood 19:10 platele t mean volume tk [place] % = 4.9 % 1.7-9.3 complet 017 [...] Mendoza MD (ER) 4 20:36 4 22:44 [facility] Emergency LIZETTE MCNAMARA MD (ER) 4 18:43 4 20:06 [facility] Emergency LIZTETE Escudero MD (ER) 3 17:45 3 18:59 [facility] Emergency LIZETTE Mendoza MD (ER) 3 16:38 3 17:11 [facility] Emergency LIZETTE Escudero MD (ER) 3 20:44 3 21:15 [facility] Emergency LIZETTE Mendoza MD (ER) 3 14:40 3 16:39 [facility] Emergency LIZETTE DIEZ (ER) 3 16:51 3 18:46 [facility] Emergency LIZETTE Escudero MD (ER) 3 21:28 3 22:25 [facility] Emergency LIZETTE DIEZ (ER) 3 14:18 3 16:42 [facility] Emergency LIZETTE Escudero MD (ER) 3 21:00 3 22:57 [facility]
--- OUTSIDE RECORDS SUMMARY | 2017-01-26 17:08 | External Medical Summary Rpt | CCD ---
Author Author [facility] Organization [employer] Address Unknown Phone Unavailable Purpose Continuity of Care Document - through 2016
--- OUTSIDE RECORDS SUMMARY | 2017-01-26 17:08 | External Medical Summary Rpt | CCD ---
Demographics Preferred Language Welsh Marital Status Unknown Anglican Affiliation Unknown Race Unknown Ethnic Group Unknown Author Author , SINTIA PATRICIO Address Unknown Phone Immunization No patient found.
--- OUTSIDE RECORDS SUMMARY | 2017-01-26 17:08 | External Medical Summary Rpt | CCD ---
Demographics Preferred Language Setswana Marital Status Unknown Yazdanism Affiliation Unknown Race Unknown Ethnic Group Unknown Author Author , SINTIA PATRICIO Address Unknown Phone Immunization No patient found.
--- NOTE | 2017-01-26 17:49 | Urgent Treatment Center Report ---
History of Present Issue Date/Time Seen by Provider 01/26/17 7646 Visit Reason Pt arrived:Walked Presenting Problem:PT C/O OF BACK PAIN Location if Accident: Onset of symptoms date/time:/ or onset unknown for:MEDICAL HX UNKNOWN Have you (or family members/close friends) recently traveled outside the [place]? N If Yes, where/when: Have you had exposure to infectious disease within the past month? TB? Other? Specify: Patient state that she has chronic back pain, State that she has an appointment next week with her family doctor and pain doctor however state that she needs a little something to help with the back pain States that she has had back problems for many years and thinks she laid wrong or something and made it start hurting ALLERGIES Coded Allergies: naratriptan (SEVERE CHEST PAIN/TIGHTNESS (ALMOST HAD A HEART ATTACK) 12/30/16) Home Medications Active Scripts Azithromycin (Zithromycin (Z-BRIANNA) 250MG Tab) 250 MG PO DAILY #6 TAB Prov: 12/07/16 Methocarbamol (Robaxin 500MG) 500 MG PO Q12HP #14 TAB Prov: 12/30/16 Naproxen (Naprosyn 500MG Tab) 500 MG PO Q12HP #10 TAB Prov: 12/30/16 Reported Medications DICYCLOMINE HCL (Bentyl) 10 MG PO TID METHOCARBAMOL (Methocarbamol) 500 MG PO QID Topiramate (Topiramate 25MG Tablet) 25 MG PO QHS CITALOPRAM HYDROBROMIDE (Citalopram HBr) 40 MG PO DAILY Ferrous Sulfate (Ferrous Sulfate 325MG) 325 MG PO DAILY FLUTICASONE PROPIONATE (Fluticasone 50MCG Nasal [place]) 1 SPRAY NA BID Omeprazole (Omeprazole 40MG) 20 MG PO DAILY ALBUTEROL-IPRATROPIUM (Iprat-Albut 0.5-3(2.5) MG/3 Ml) 3 ML IH QID ALBUTEROL (Ventolin Hfa) 2 PUFF IH Q6H6 History Medical History General CAD? No Angina: No FL: No Hypertension? No Hyperlipidemia? No CHF? No DVT? No PE? No COPD? Yes Asthma? No Anemia? No GERD? Yes Gastric ulcers? No GI Bleed? No Hernia? No Thyroid Problems? No Hypothyroidism? No CVA? No Seizures? No Diabetes? No Insulin Dependent: No Insulin Pump: No Home FSBS? No Renal Insuffiency? No UTI? No Stones? No BPH? No GB Disease: No Nephritic Syndrome? No Asplenia? No Hepatitis? No Sickle Cell Disease? No Arthritis? Yes Migraines? Yes Cataracts? No Glaucoma? No MRSA? No HIV? No TB? No Anxiety? Yes Depression? Yes Cancer? No More? Yes Additional hx: SCOLIOSIS, DDD Immunization HX DT/Tetanus > 10 Years Ago Flu 2013-FSN Pneumonia 02/23/14 Surgical Hx Previous Surgery?Y X2 HYSTERECTOMY COLON RESECTION SMALL BOWEL RESECTION HERNIA REPAIRS EPIGASTRIC HERNIA REPAIR X 2. SMALL BOWEL RESECTION MESH REMOVED FROM ABD APPENDECTOMY Family History Family HX Diabetes No CAD No Hypertension No Hyperlipidemia No Cancer Yes TB No Social History Smoking Hx Smoker: Current Every Day Smoker Tobacco: Yes Type Cigarettes Packs/day < 1 Pack Alcohol Alcohol: No Review of Systems All Other Systems Reviewed and Negative Musculoskeletal back pain, muscle pain Physical Exam Vital Signs Vital Signs Date Time Temp Pulse Resp B/P Pulse O2 O2 Flow FiO2 Ox Delivery Rate 01/26 1814 98.6 113 22 116/65 95 01/26 1801 22 01/26 1734 98.6 113 20 116/65 95 General Appearance normal appearance, WD/WN, no apparent distress Respiratory Status Yes: trachea midline, chest symmetrical, non tender chest. No: respiratory distress. Lung Sounds bilateral: normal breath sounds, lungs clear. Cardiovascular normal exam, regular rate/rhythm, no peripheral edema Back normal inspection, no CVA tenderness, no vertebral tenderness, bowel/ bladder continent Neurologic alert, normal exam, oriented x 3 Medical Decision Making LABS/Meds/Orders Pt receiving controlled substance in ED? No Results/Orders Current Medication Orders Sig/Nina Start time Last Medication Dose Route Stop Time Status Admin Ketorolac 60 MG ONCE ONE 01/26 1800 DC 01/26 Tromethamine IM 01/26 180 180 Ketorolac 0 .STK-MED ONE 01/26 1759 DC Tromethamine .ROUTE Departure Departure Time of Disposition 1750 Disposition DC Home or Self Care(routine) Clinical Impression Primary Impression: Chronic back pain Qualifiers: Back pain location: back pain in unspecified location Back pain laterality: midline Qualified Code: M54.9 - Dorsalgia, unspecified Condition STABLE Referrals STONE PA, ARINA (Family): 3 Days-Call Office If worsening or no improvement Patient Instructions Thoracic Back Pain Additional Instructions Follow up with family doctor as discussed in the clinic today Take medication as prescribed Follow up with pain doctor next week as scheduled Return if needed Discharge Counseling Counseled pt/family regarding diagnosis, medications/RX, home care, follow up needs Prescriptions Current Visit Scripts NAPROXEN (NAPROSYN 500MG TAB) 500 MG PO BID #20 TAB Methocarbamol (Robaxin 500MG) 500 MG PO TID #15 TAB at 2836
[2017-01-26] MEDS ORDERED: NAPROSYN 500MG500 MG PO (17:52)
[2017-01-26] MEDS ORDERED: ROBAXIN 500 MG500 MG PO (17:52)
[2017-01-26 18:14] VITALS: BP 116/65
[2017-02-04] MEDS ORDERED: GABAPENTIN300 M1 PO (11:10)
== END 2017-01-26 18:14 | disposition home or self-care (01) ==
LOC: UTC 17:01
DX: M54.9 Dorsalgia, unspecified (principal); F17.210 Nicotine dependence, cigarettes, uncomplicated; F41.8 Other specified anxiety disorders; K21.9 Gastro-esophageal reflux disease without esophagitis

== ENCOUNTER 2017-02-13 19:58 | Emergency (ER) | payer MEDICAID ==
[~2017-02-13] VITALS: Ht 172.7 cm; Wt 47.6 kg
[~2017-02-13 19:58] MED LIST changes: +GABAPENTIN300 M1 PO; +NAPROSYN 500MG500 MG PO
[2017-02-13] MEDS ORDERED: GABAPENTIN300 MG PO (20:29)
--- NOTE | 2017-02-13 20:33 | Emergency Room Report ---
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 N Clinical Suspician of Infection? N Mental Status: 1 - Regular (Normal Baseline) Sepsis Risk:Possible Sepsis Risk Have you (or family members/close friends) recently traveled outside the [place]? N If Yes, where/when: Have you had exposure to infectious disease within the past month? TB? Other? 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 - no hemoptysis and no chest pain Cardiac Chest Pain Chest pain indicative of cardiac No Timing/Duration this evening Severity moderate ALLERGIES Coded Allergies: naratriptan (SEVERE CHEST PAIN/TIGHTNESS (ALMOST HAD A HEART ATTACK) 12/30/16) Home Medications Active Scripts Gabapentin 300 MG PO TID #90 TAB Ref 2 Prov: 02/04/17 NAPROXEN (NAPROSYN 500MG TAB) 500 MG PO BID #20 TAB Prov: 01/26/17 Reported Medications Gabapentin (Gabapentin 300MG) 300 MG PO TID Topiramate (Topiramate 25MG Tablet) 25 MG PO QHS CITALOPRAM HYDROBROMIDE (Citalopram HBr) 40 MG PO DAILY Ferrous Sulfate (Ferrous Sulfate 325MG) 325 MG PO DAILY FLUTICASONE PROPIONATE (Fluticasone 50MCG Nasal [place]) 1 SPRAY NA BID Omeprazole (Omeprazole 40MG) 20 MG PO DAILY History Medical History General CAD? No Angina: No [place]: No Hypertension? No Hyperlipidemia? No CHF? No DVT? No PE? No COPD? Yes Asthma? No Anemia? No GERD? Yes Gastric ulcers? No GI Bleed? No Hernia? No Thyroid Problems? No Hypothyroidism? No CVA? No Seizures? No Diabetes? No Insulin Dependent: No Insulin Pump: No Home FSBS? No Renal Insuffiency? No End Stage Renal Disease? No UTI? No Stones? No BPH? No GB Disease: No Nephritic Syndrome? No Asplenia? No Hepatitis? No Sickle Cell Disease? No Arthritis? Yes Migraines? Yes Cataracts? No Glaucoma? No MRSA? No HIV? No TB? No Anxiety? Yes Depression? Yes Cancer? No More? Yes Additional hx: SCOLIOSIS, DDD Immunization Hx DT/Tetanus > 10 Years Ago Flu [id number] Flu Season Pneumonia 02/23/14 Surgical Hx Previous Surgery?Y X2 HYSTERECTOMY COLON RESECTION SMALL BOWEL RESECTION HERNIA REPAIRS EPIGASTRIC HERNIA REPAIR X 2. 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 Respiratory see HPI, cough, shortness of breath, wheezing Cardiovascular denies chest pain, denies palpitations, denies syncope Gastrointestinal denies abdominal pain, denies diarrhea, denies vomiting Genitourinary denies: dysuria, frequency, hesitancy, hematuria. Musculoskeletal denies back pain, denies joint pain, denies joint swelling, denies neck pain Skin denies rash Psychiatric/Neurological denies headache, denies seizure Physical Exam Vital Signs Vital Signs Date Time Temp Pulse Resp B/P Pulse O2 O2 Flow FiO2 Ox Delivery Rate 02/13 2127 109 20 122/67 91 02/13 2026 98.7 116 20 115/74 98 - WBC >12,000 or <4,000 or 10% bands? 2 or more SIRS Criteria Met? B/P:122/67 MAP:87 Creatinine >2.0? UA output<0.5ml/kg/hr for 2 hrs? Platelet count >100,000? Lactate >2.0mmol/1? INR >1.2 or PTT > than 60 sec? Evidence of Organ Dysfunction? Provider documented clinical suspician of infection? N Sepsis Criteria Count: 2 Sepsis Risk: Possible Sepsis Risk General Appearance no apparent distress Eye Exam - bilateral eye PERRL, bilateral eye EOMI Ear, Nose, Throat normal ENT inspection Neck supple Respiratory Status No: respiratory distress. Lung Sounds bilateral: rhonchi. 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 No Results/Orders Laboratory Tests 02/13/172027: Influenza Type A Ag NOT DETECTED, Influenza Type B Ag NOT DETECTED Current Medication Orders Sig/Nina Start time Last Medication Dose Route Stop Time Status Admin Albuterol 2 PUFFS ONCE ONE 02/13 2045 DC 02/13 IH 02/13 Miscellaneous 1 UNIT ONCE ONE 02/13 2045 DC 02/13 XX 02/13 Albuterol 0 .STK-MED ONE 02/14 2036 DC INH Miscellaneous 0 .STK-MED ONE 02/14 2036 DC XX Albuterol 0 .STK-MED ONE 02/13 2035 DC IH Albuterol 2.5 MG ONCE ONE 02/13 2030 DC 02/13 INH 02/13 Orders Procedure Date/time Status RT REQUEST ALBUTEROL INHALER 02/13 2033 Active RT REQUEST ALBUTEROL NEB 02/13 2021 Active CHEST(2 VIEWS-NOT PORTABLE) 02/14 2020 Active INFLUENZA A&B ANTIGENS 02/14 2020 Complete XRAY/CT/US XRAY/CT/US XRAY chest XR interpretation by reviewed by me Xray Results abnormal (copd) Departure Departure Time of Disposition 2126 Disposition DC Home or Self Care(routine) Clinical Impression Primary Impression: Bronchitis Condition STABLE Patient Instructions DI for Cough -- Adult Additional Instructions fluids and see pcp for follow up and use meds Discharge Counseling Counseled pt/family regarding diagnosis, test results, medications/RX, follow up needs Prescriptions Current Visit Scripts Prednisone (Prednisone 20MG) 20 MG PO BID #10 TAB BENZONATATE (Benzonatate) 100 MG PO TID #21 CAP Ciprofloxacin HCl (Cipro 500MG TAB) 500 MG PO BID #14 TAB ED Critical Care Critical Care No at 2134
--- NOTE | 2017-02-13 20:33 | Emergency Room Report ---
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 N Clinical Suspician of Infection? N Mental Status: 1 - Regular (Normal Baseline) Sepsis Risk:Possible Sepsis Risk Have you (or family members/close friends) recently traveled outside the [place]? N If Yes, where/when: Have you had exposure to infectious disease within the past month? TB? Other? 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 - no hemoptysis and no chest pain Cardiac Chest Pain Chest pain indicative of cardiac No Timing/Duration this evening Severity moderate ALLERGIES Coded Allergies: naratriptan (SEVERE CHEST PAIN/TIGHTNESS (ALMOST HAD A HEART ATTACK) 12/30/16) Home Medications Active Scripts Gabapentin 300 MG PO TID #90 TAB Ref 2 Prov: 02/04/17 NAPROXEN (NAPROSYN 500MG TAB) 500 MG PO BID #20 TAB Prov: 01/26/17 Reported Medications Gabapentin (Gabapentin 300MG) 300 MG PO TID Topiramate (Topiramate 25MG Tablet) 25 MG PO QHS CITALOPRAM HYDROBROMIDE (Citalopram HBr) 40 MG PO DAILY Ferrous Sulfate (Ferrous Sulfate 325MG) 325 MG PO DAILY FLUTICASONE PROPIONATE (Fluticasone 50MCG Nasal [place]) 1 SPRAY NA BID Omeprazole (Omeprazole 40MG) 20 MG PO DAILY History Medical History General CAD? No Angina: No [place]: No Hypertension? No Hyperlipidemia? No CHF? No DVT? No PE? No COPD? Yes Asthma? No Anemia? No GERD? Yes Gastric ulcers? No GI Bleed? No Hernia? No Thyroid Problems? No Hypothyroidism? No CVA? No Seizures? No Diabetes? No Insulin Dependent: No Insulin Pump: No Home FSBS? No Renal Insuffiency? No End Stage Renal Disease? No UTI? No Stones? No BPH? No GB Disease: No Nephritic Syndrome? No Asplenia? No Hepatitis? No Sickle Cell Disease? No Arthritis? Yes Migraines? Yes Cataracts? No Glaucoma? No MRSA? No HIV? No TB? No Anxiety? Yes Depression? Yes Cancer? No More? Yes Additional hx: SCOLIOSIS, DDD Immunization Hx DT/Tetanus > 10 Years Ago Flu [id number] Flu Season Pneumonia 02/23/14 Surgical Hx Previous Surgery?Y X2 HYSTERECTOMY COLON RESECTION SMALL BOWEL RESECTION HERNIA REPAIRS EPIGASTRIC HERNIA REPAIR X 2. 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 Respiratory see HPI, cough, shortness of breath, wheezing Cardiovascular denies chest pain, denies palpitations, denies syncope Gastrointestinal denies abdominal pain, denies diarrhea, denies vomiting Genitourinary denies: dysuria, frequency, hesitancy, hematuria. Musculoskeletal denies back pain, denies joint pain, denies joint swelling, denies neck pain Skin denies rash Psychiatric/Neurological denies headache, denies seizure Physical Exam Vital Signs Vital Signs Date Time Temp Pulse Resp B/P Pulse O2 O2 Flow FiO2 Ox Delivery Rate 02/13 2127 109 20 122/67 91 02/13 2026 98.7 116 20 115/74 98 - WBC >12,000 or <4,000 or 10% bands? 2 or more SIRS Criteria Met? B/P:122/67 MAP:87 Creatinine >2.0? UA output<0.5ml/kg/hr for 2 hrs? Platelet count >100,000? Lactate >2.0mmol/1? INR >1.2 or PTT > than 60 sec? Evidence of Organ Dysfunction? Provider documented clinical suspician of infection? N Sepsis Criteria Count: 2 Sepsis Risk: Possible Sepsis Risk General Appearance no apparent distress Eye Exam - bilateral eye PERRL, bilateral eye EOMI Ear, Nose, Throat normal ENT inspection Neck supple Respiratory Status No: respiratory distress. Lung Sounds bilateral: rhonchi. 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 No Results/Orders Laboratory Tests 02/13/172027: Influenza Type A Ag NOT DETECTED, Influenza Type B Ag NOT DETECTED Current Medication Orders Sig/Nina Start time Last Medication Dose Route Stop Time Status Admin Albuterol 2 PUFFS ONCE ONE 02/13 2045 DC 02/13 IH 02/13 Miscellaneous 1 UNIT ONCE ONE 02/13 2045 DC 02/13 XX 02/13 Albuterol 0 .STK-MED ONE 02/14 2036 DC INH Miscellaneous 0 .STK-MED ONE 02/14 2036 DC XX Albuterol 0 .STK-MED ONE 02/13 2035 DC IH Albuterol 2.5 MG ONCE ONE 02/13 2030 DC 02/13 INH 02/13 Orders Procedure Date/time Status RT REQUEST ALBUTEROL INHALER 02/13 2033 Active RT REQUEST ALBUTEROL NEB 02/13 2021 Active CHEST(2 VIEWS-NOT PORTABLE) 02/14 2020 Active INFLUENZA A&B ANTIGENS 02/14 2020 Complete XRAY/CT/US XRAY/CT/US XRAY chest XR interpretation by reviewed by me Xray Results abnormal (copd) Departure Departure Time of Disposition 2126 Disposition DC Home or Self Care(routine) Clinical Impression Primary Impression: Bronchitis Condition STABLE Patient Instructions DI for Cough -- Adult Additional Instructions fluids and see pcp for follow up and use meds Discharge Counseling Counseled pt/family regarding diagnosis, test results, medications/RX, follow up needs Prescriptions Current Visit Scripts Prednisone (Prednisone 20MG) 20 MG PO BID #10 TAB BENZONATATE (Benzonatate) 100 MG PO TID #21 CAP Ciprofloxacin HCl (Cipro 500MG TAB) 500 MG PO BID #14 TAB ED Critical Care Critical Care No at 2134
--- OUTSIDE RECORDS SUMMARY | 2017-02-13 21:02 | External Medical Summary Rpt | CCD ---
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 ED 31 10 [...] SO 93 LN 8 # 03 93 00 04 04 10 2 RI 83 WE Ac 40 -1 -1 .0 TE 03 HR ti 60 7- 9- 00 81 MA ve 35 20 20 AI N 70 10 10 D II 5 PH I AR WI MA LL CY IA M 03 E 93 8 # 03 93 MO 00 04 04 10 2 RI 83 [...] 3 60 30 CL 20 AR Ac MO 18 -0 -0 .0 IN 58 NO [...] 01 60 30 CL 20 AR Ac MO 18 -0 -1 .0 IN 58 NO [...] Y PA CY E TC H TI 00 11 12 01 90 30 CL 20 OK Ac ZA 18 -0 -1 .0 IN 43 CK ti NI 54 9- 7- 00 IC 90 ve DI 40 20 20 GR NE 05 09 09 PH EG 1 AR OR HC MA Y L CY E 4 MG TA BL ET TO 68 06 [...] PH 0 AR HARSHIL MA HN CY 65 10 12 02 90 30 CL 20 CLAUDIA Ac 48 -0 -1 .0 IN 22 SC ti 30 7- 7- 00 IC 05 H ve 70 20 20 AN 21 09 09 PH TO 0 AR NI MA O CY BU 00 12 12 00 60 30 CL 20 AR Ac MO 18 -0 -1 .0 IN 58 NO [...] 50 -3 25 -4 0 65 10 11 01 90 30 CL [...] CY E 4 MG TA BL ET TR 00 11 11 00 90 30 CL 20 OK Ac AM 37 -0 -1 .0 IN 45 CK ti AD 84 9- 9- 00 IC 80 ve OL 15 20 20 GR 10 09 09 PH EG HC 5 AR OR L MA Y 50 CY E MG TA BL ET TO 68 06 11 03 60 30 [...] PH 0 AR HARSHIL MA HN CY TA 00 10 11 00 10 5 CL 20 AR Ac OK 00 -2 -0 .0 IN 32 NO ti FL 40 2- 5- 00 IC 69 LD ve U 80 20 20 75 08 09 09 PH RI 5 AR CH MG MA AR CY D CA W PS UL E BU 00 05 11 02 60 30 CL 19 AR Ac MO 18 -0 -0 .0 IN 76 NO [...] W FF 50 -3 25 -4 0 ME 00 06 11 04 12 30 CL 19 AR Ac TH 60 -2 -0 0. IN 60 NO ti OC 34 3- 5- 00 IC 39 LD ve AR 48 20 20 0 BA 62 09 09 PH RI MO 1 AR CH L MA AR 75 CY D 0 W MG TA BL ET MO 68 09 10 01 40 10 CL [...] CY MG TA BL ET BU 00 05 10 01 60 30 CL 19 AR Ac MO 18 -0 -0 .0 IN 76 NO [...] CY NT HI AN A BU 00 09 10 [...] 00 60 30 CL 19 AR Ac MO 18 -0 -1 .0 IN 76 NO [...] AR CH MA AR CY D W MO 68 09 09 00 40 10 CL 20 AR Ac OM 38 -0 -1 .0 IN 00 NO ti ET 20 3- 0- 00 IC 85 LD ve MAIN 04 20 20 ZI 10 09 09 PH RI NE 1 AR CH MA AR 25 CY D W MG TA BL ET 00 06 09 02 12 30 CL [...] ET HI AN A TO 68 06 09 01 60 30 [...] MA HN CY MG TA BL ET MO 68 07 07 00 40 10 CL [...] D MG W CA PS UL E ME 59 07 07 00 21 6 CL 19 AR Ac TH 74 -1 -3 .0 IN 74 NO ti YL 60 8- 0- 00 IC 01 LD ve MO 00 20 20 ED 10 09 09 PH RI NI 3 AR CH SO MA AR LO CY D NE W 4 MG DO SE PK BU 00 05 07 01 60 30 EA 12 AR Ac MO 18 -0 -[address] 62 NO [...] NT ET HI AN A 00 06 07 00 12 30 CL [...] CY OF CY NT HI AN A TO 60 06 07 00 60 30 EA 13 OC Ac PI 50 -1 -[address] 20 ON ti RA 52 9- 2- 00 SI 76 NE ve MA 76 20 20 DE LL TE 00 09 09 6 PH HARSHIL 25 AR HN MA MG CY TA OF BL CY ET NT HI AN A CY 00 06 [...] TO 0 AR NI MA O CY CY 59 06 06 00 90 30 CL 19 AR Ac CL 74 -0 -1 .0 IN 47 NO ti OB 60 1- 8- 00 IC 30 LD ve EN 17 20 20 ZA 70 09 09 PH RI MO 6 AR CH IN MA AR E [...] 8- 4- 00 SI 58 EY ve MO 02 20 20 DE ED 20 09 09 OK NI 7 PH CH SO AR AE LO MA L NE CY S 4 OF MG CY NT DO HI SE AN PK A BU 00 05 05 00 60 30 EA 12 AR Ac MO 18 -0 -[address] 62 NO [...] ST 74 ES ti OX 50 4- 00 SI 36 TN ve YZ 32 [...] CY OF CY NT HI AN A MO 00 04 05 00 60 15 EA 12 AR Ac OM 78 -3 -[address] 55 NO ti ET 11 0- 7- 00 SI 71 LD ve MAIN 83 20 20 DE ZI 01 09 09 RI NE 0 PH CH AR AR 25 MA D CY W MG OF TA CY BL NT ET HI AN A ME 00 12 04 [...] W MG 93 8 TA BL ET MO 00 03 04 01 40 10 RI [...] AR M D #3 W 93 8 EN 60 04 04 00 60 30 RI 77 AR Ac DO 95 -0 -0 .0 TE 84 NO ti CE 10 3- 9- 00 02 LD ve T 71 20 20 AI 10 27 09 09 D RI -3 0 PH CH 25 AR AR M D MG #3 W 93 TA 8 BL ET NY 51 03 03 00 24 6 RI [address] 67 -1 -2 0. TE 58 NO ti AT 24 8- 6- 00 95 LD ve IN 11 20 20 0 AI 70 09 09 D RI 10 4 PH CH 0, AR AR 00 M D 0 #3 W UN 93 IT 8 /M L SUGGS SP TR 00 02 03 01 10 25 RI 77 AR Ac AM 09 -0 -1 0. TE 00 NO ti AD 30 9- 2- 00 69 LD ve OL 05 20 20 0 AI 80 09 09 D RI HC 1 PH CH L AR AR 50 M D #3 W MG 93 8 TA BL ET MO 00 03 03 00 40 10 RI [...] #3 W TA 93 BL 8 ET 60 02 02 00 24 8 RI 77 AR Ac 25 -1 -2 0. TE 11 NO ti 80 6- 6- 00 28 LD ve 23 20 20 0 AI 91 09 09 D RI 6 PH CH AR AR M D #3 W 93 8 TR 00 02 02 00 10 25 [...] #3 W 93 TA 8 BL ET AZ 59 02 02 00 6. 5 RI 77 AR Ac IT 76 -1 -2 00 TE 11 NO ti HR 23 6- 6- 0 16 LD ve OM 06 20 20 AI YC 00 09 09 D RI IN 1 PH CH AR AR 25 M D 0 #3 W MG 93 8 TA BL ET BU 00 11 02 00 [...] TO 0 AR NI MA O CY 24 11 12 00 12 30 EA [...] 00 60 30 EA 10 AR Ac MO 09 -2 -[address] 01 NO ti OX 30 4- 7- 00 SI 01 LD ve EN 14 20 20 DE 90 08 08 RI 50 1 PH CH 0 AR AR MG MA D CY W TA BL OF ET CY NT HI AN A 60 10 11 00 18 23 EA 99 AR Ac 50 -2 -[address] 93 NO ti 50 0- 7- 00 SI 35 LD ve 17 20 20 0 DE 10 08 08 RI 8 PH CH AR AR MA D CY W OF CY NT HI AN A PA [...] CY BL NT ET HI AN A IM 00 10 11 00 9. 30 EA 99 AR Ac IT 17 -1 -[address] 91 NO ti RE 30 8- 7- 0 SI 55 LD ve X 73 20 20 DE 50 60 08 08 RI 1 PH CH MG AR AR MA D TA CY W BL ET OF CY NT HI AN A MO 00 10 11 00 40 10 EA 10 AR Ac OC 09 -3 -[address] 07 NO ti HL 39 0- 7- 00 SI 93 LD ve OR 65 20 20 DE PE 20 08 08 RI RA 1 PH CH ZI AR AR NE MA D CY W 10 OF MG CY NT TA HI B AN A SM 49 05 11 02 30 30 EA 97 CLAUDIA Ac 34 -0 -[address] 92 SC ti 80 8- 7- 00 SI 21 H ve TA 40 20 20 DE AN OK 71 08 08 TO N 2 PH NI B1 AR O 2 MA 1, CY 00 0 OF MC CY G NT TA HI B AN A AM 00 10 10 00 [...] 7- 3- 00 SI 49 Av ve MO 02 20 20 DE ai ED 20 [...] 00 14 7 RI 75 GA Ac MO 17 -0 -2 .0 TE 25 IN [...] TE 25 IN ti AD 30 4- 3 00 44 EY ve OL 05 20 20 AI 80 08 08 D OK HC 1 PH CH L AR AE 50 M L #3 S MG 93 8 TA BL ET PA 60 09 10 00 30 30 EA 99 No Ac RO 50 -2 -[address] 57 t ti XE 50 2- 9- 00 SI 00 Av ve TI 08 20 20 DE ai NE 30 08 08 la 1 PH bl HC AR e L MA 20 CY MG OF CY TA NT BL HI ET AN A ME 00 09 10 00 12 30 EA 99 No Ac TH 60 -2 -[address] 57 t ti OC 34 2- 9 00 SI 01 Av ve AR 48 20 20 0 DE ai BA 62 08 08 la MO 1 PH bl L AR e 75 MA 0 CY MG OF TA CY BL NT ET HI AN A BU 00 09 10 00 60 15 EA 99 No Ac TA 59 -3 -[address] 67 t ti LB 13 0- 9 00 SI 76 Av ve -A 36 20 20 DE ai CE 90 08 08 la TA 5 PH bl OK AR e N- MA CA CY FF OF 50 CY -3 NT 25 HI -4 AN 0 A MU 00 09 10 00 22 5 EA 99 No Ac PI 09 -2 -[address] 57 t ti RO 31 2 9 00 SI 03 Av ve CI 01 20 20 DE ai N 04 08 08 la 2% 2 PH bl AR e OI MA NT CY ME NT OF CY NT HI AN A MO 10 07 10 02 60 15 EA 98 No Ac OM 70 -1 -[address] 75 t ti ET 20 7- 9 00 SI 92 Av ve MAIN 00 [...] CY UL NT E HI AN A 65 05 09 02 90 30 EA 97 No Ac 48 -0 -[address] 92 t ti 30 8- 1- 00 SI 22 Av ve 70 20 20 DE ai 21 08 08 la 0 PH bl AR e MA CY OF CY NT HI AN A MO 00 09 09 00 70 17 EA 99 No Ac ED 60 -0 -[address] 30 t ti NI 35 2- 1- 00 SI 99 Av ve SO 33 20 20 DE ai NE 82 08 08 la 1 PH bl 10 AR e MA MG CY TA OF BL CY ET NT HI AN A MO 00 07 09 01 60 15 EA 98 No Ac OM 78 -1 -[address] 75 t ti ET 11 7- 1- 00 SI 92 Av ve MAIN 83 20 20 DE ai ZI 01 08 08 la NE 0 PH bl AR e 25 MA CY MG OF TA CY BL NT ET HI AN A 00 09 09 00 [...] AR RE M Y #3 93 8 00 07 08 00 60 15 EA [...] G NT TA HI B AN A 60 07 08 01 40 7 EA 98 No Ac 50 -0 -[address] 58 t ti 50 2- 1- 00 SI 97 Av ve 17 20 20 DE ai 10 08 08 la 8 PH bl AR e MA CY OF CY NT HI AN A MO 00 07 08 00 60 15 EA [...] E CY NT HI AN A 65 05 [...] CY OF CY NT HI AN A MO 00 02 07 04 60 15 EA 96 No Ac OM 78 -1 -[address] 85 t ti ET 11 8 7- 00 SI 56 Av ve MAIN [...] 0- 3- 00 SI 32 Av ve MO 02 20 20 DE ai ED 20 [...] CY OF CY NT HI AN A MO 00 02 06 03 60 15 EA [...] G NT TA HI B AN A SM 49 01 05 02 [...] CY OF CY NT HI AN A MO 00 02 05 02 60 15 EA 96 No Ac OM 78 -1 -[address] 85 t ti ET 11 8- 2- 00 SI 56 Av ve MAIN 83 20 20 DE ai ZI 01 08 08 la NE 0 PH bl AR e 25 MA CY MG OF TA CY BL NT ET HI AN A 65 05 05 00 90 30 EA 97 No Ac 48 -0 -[address] 92 t ti 30 8- 2- 00 SI 22 Av ve 70 20 20 DE ai 21 08 08 la 0 PH bl AR e MA CY OF CY NT HI AN A CI 00 04 04 00 14 7 RI 72 No Ac MO 17 -1 -2 .0 TE 89 t ti OF 25 4- 4- 00 85 Av ve LO 31 20 20 AI ai XA 26 08 08 D la CI 0 PH bl N AR e HC M L #3 50 93 0 8 MG TA B ME 00 04 04 00 21 6 RI 72 No Ac TH 60 -1 -2 .0 TE 89 t ti YL 34 4- 4- 00 86 Av ve MO 59 20 20 AI ai ED 31 [...] CY OF CY NT HI AN A MO 00 02 04 01 60 15 EA [...] NT 25 HI -4 AN 0 A LI 60 02 03 00 59 1 RI 71 No Ac ND 43 -0 -2 .0 TE 85 t ti AN 20 5- 6- 00 95 Av ve E 83 20 20 AI ai 1% 46 08 08 D la 0 PH bl SH AR e AM M PO #3 O 93 8 MO 00 02 03 00 60 15 EA [...] 8- 6- 00 SI 54 Av ve MO 02 20 20 DE ai ED 20 [...] bl AR e M #3 93 8 NI 00 01 03 00 20 10 [...] Order Detail nces retati t Range on Urine 9-analyte drugs of abuse screening (02-04-2017 11:26) Comment: Positive urine drug screen samples are stored for 7 days. Comment: Contact the Lab if confirmation of positives is needed. Serum = 200 complet or 017 NEGATIV ng/mL ed plasma 11:26 E ng/mL benzodi azepine s measure m Urine NEGATIV <1000 complet ampheta 017 E ed mine 11:26 NEGATIV screeni E L ng test ng/mL Urine = <200 complet barbitu 017 NEGATIV ed rates 11:26 E ng/mL measure ment by screen Cocaine = <300 complet 017 NEGATIV ed measure 11:26 E ng/g ment (mass/v olume) Methado = <300 complet ne 017 NEGATIV ed measure 11:26 E ng/mL ment (mass/v olume) Opiates = <300 complet 017 NEGATIV ed measure 11:26 E ng/mL ment (mass/v olume) Phencyc = <25 complet lidine 017 NEGATIV ed measure 11:26 E ng/mL ment (mass/v olume) 11-hydr NEGATIV <50 complet oxy 017 E ed delta-9 11:26 NEGATIV E L tetrahy ng/mL drocann abinol CBC w auto diff (12-21-2016 19:10) Automat = 0.1 0-0.2 complet ed 017 K/MM3 ed blood 19:10 basophi l count (count/ vo Baso % = 0.5 % 0.1-2.0 complet 017 ed 19:10 Automat = 0.1 0.0-0.4 complet ed 017 K/mm3 ed blood 19:10 eosinop hil count Automat = 0.8 % 0.1-12. complet ed 017 0 ed blood 19:10 eosinop hils/10 0 leukocy t Blood = 7.5 1.8-7.8 complet granulo 017 K/mm3 ed cytes 19:10 automat ed count (numb Granulo = 74.6 37.0-80 complet cyte 017 % .0 ed percent 19:10 age Blood = 42.2 37.0-47 complet hematoc 017 % .0 ed rit 19:10 (volume fractio n) Blood = 13.3 12.2-16 complet hemoglo 017 g/dL .2 ed bin 19:10 measure ment (mass/v olum Absolut = 1.9 0.7-4.5 complet e 017 K/mm3 ed lymphoc 19:10 yte count Lymphoc = 19.3 10-50.0 complet yte 017 % ed count, 19:10 blood, automat ed Mean = 31.6 27-31.2 complet corpusc 017 pg ed ular 19:10 hemoglo bin (MCH) determ Automat = 31.6 31.8-35 complet ed 017 g/dl .4 ed erythro 19:10 cyte mean corpusc ular h Automat = 100.2 82.2-97 complet ed 017 fl .8 ed erythro 19:10 cyte mean corpusc ular v Absolut = 0.5 0.1-1.0 complet e 017 K/mm3 ed monocyt 19:10 e count Sully % = 4.9 % 1.7-9.3 complet 017 ed 19:10 Automat = 7.7 7.4-10. complet ed 017 fl 4 ed blood 19:10 platele t mean volume tk Blood = 272 142-424 complet platele 017 K/mm3 ed t count 19:10 Red = 4.21 4.2-5.4 complet blood 017 M/mm3 ed cell 19:10 count Automat = 12.3 11.5-17 complet ed 017 % .5 ed erythro 19:10 cyte distrib ution width Blood = 10.1 4.8-10. complet leukocy 017 K/MM3 8 ed fernanda 19:10 count (number /volume ) Amylase ser/plas (12-21-2016 19:10) Amylase = 72 25-115 complet 017 U/L ed ser/chaz 19:10 s Lipase measurement (12-21-2016 19:10) Lipase = 185 [...] SQUARE METERS Comment: If this patient is -[place], then multiply the Comment: result by 1.210. [...] plasma 19:10 albumin /globul in mass ra Lipase SerPl-cCnc (08-24-2016 16:44) Lipase 27 U/L [...] 014 K/mm3 ed Bld 19:15 Auto Lymphoc 03-21- 1.6 0.7-4.5 complet ytes Fr 014 K/mm3 [...] UNK .030 ed C 19:15 GRAVITY URINE 2 2+ NEG complet BLOOD 014 ed 19:15 URINE 03-21-2 6.0 UNK 5.0-8.5 complet PH 014 ed 19:15 URINE 01-11-2 NEGATIV NEG complet PROTEIN 014 E mg/dL [...] 013 mmoL/L .0 ed Cnc 20:26 Calcium 10-11- 9.1 8.5-10. complet 013 mg/dL 1 ed SerPl-m 20:26 Cnc Prot 8.3 6.4-8.2 complet SerPl-m 013 gm/dL ed Cnc 20:26 Albumin 10-11-2 4.3 3.4-5.0 complet 013 gm/dL ed SerPl-m 20:26 Cnc Globuli 08-03-2 4.0 1.3-3.2 complet n 013 gm/dL ed Ser-mCn 20:26 c Albumin -03-2 1.1 UNK 1.1-1.8 complet /Glob 013 ed SerPl-m 20:26 Rto Bilirub 10-11-2 0.3 0.2-1.0 complet 013 mg/dL ed SerPl-m 20:26 Cnc AST 03-2 18 U/L 15-37 complet SerPl-c 013 ed Cnc 20:26 ALT -03-2 60 U/L 30-65 complet SerPl-c 013 ed Cnc 20:26 ALP -03-2 175 U/L 50-136 complet SerPl-c 013 ed Cnc 20:26 Acetamin SerPl-mCnc (10-11-2012 20:26) Acetami 03-2 13.2 10-30 complet n 013 ug/mL ed SerPl-m 20:26 Cnc Salicylates SerPl-mCnc (10-11-2012 20:26) Salicyl 10-11-2 4.8 2.8-20. complet ates 013 mg/dL 0 ed SerPl-m 20:26 Cnc Ethanol Bld-mCnc (10-11-2012 20:26) Ethanol 0803-2 0 mg/dL 0-99 complet 013 ed Bld-mCn 20:26 c CBC with AUTO DIFF (10-11-2012 20:26) WBC # 08-03-2 7.0 4.8-10. complet Bld 013 K/MM3 8 ed Auto 20:26 RBC # 08-03-2 4.39 4.2-5.4 complet Bld 013 M/mm3 ed Auto 20:26 Hgb 08-03-2 12.5 12.2-16 complet Bld-mCn 013 g/dL .2 ed c 20:26 Hct Fr 10-11-2 41.1 % 37.0-47 complet Bld 013 .0 ed 20:26 MCV RBC 10-11-2 93.6 fl 82.2-97 complet 013 .8 ed [...] YELLOW complet COLOR 013 ed 15:14 URINE 09-04- CLEAR CLEAR complet APPEARA 013 ed NCE [...] Bld 15:55 Auto URINALYSIS/COMPLETE (06-30-2012 21:25) URINE 22-2 YELLOW YELLOW complet COLOR 013 ed 21:25 URINE -22-2 CLEAR CLEAR complet APPEARA 013 ed NCE 21:25 URINE -22-2 NEGATIV NEG complet GLUCOSE 013 E ed - 21:25 DIPSTIC K URINE -22-2 NEGATIV NEG complet BILIRUB 013 E ed IN - 21:25 DIPSTIC K URINE -22-2 NEGATIV NEG complet KETONE 013 E mg/dL ed 21:25 URINE -22-2 1.025 1.005-1 complet SPECIFI 013 UNK .030 ed C 21:25 GRAVITY URINE -22-2 2+ NEG complet BLOOD 013 ed 21:25 URINE 22-2 6.0 UNK 5.0-8.5 complet PH 013 ed 21:25 URINE -22-2 NEGATIV NEG complet PROTEIN 013 E mg/dL ed - 21:25 DIPSTIC K URINE 04-22-2 0.2 NEG complet UROBILI 013 E.U./dL ed NOGEN - 21:25 DIPSTIC K URINE -22-2 NEGATIV NEG complet NITRATE 013 E ed - 21:25 DIPSTIC K URINE 04-22-2 NEGATIV NEG complet LEUK 013 E ed ESTERAS 21:25 E URINE -22-2 3-5 0 complet RBC 013 rbc/hpf ed 21:25 URINE -22-2 OCC O complet WBC 013 wbc/hpf ed 21:25 URINE 04-22-2 OCC 0-5 complet SQUAMOU 013 #/hpf ed S CELLS 21:25 URINE -22-2 TRACE O complet BACTERI 013 ed A [...] 013 K/mm3 ed Ql 21:15 Manual MEAN 2 7.8 fl 7.4-10. complet PLATELE 013 4 ed T 21:15 VOLUME Granulo 06-30-2 72.7 % 37.0-80 complet cytes 013 .0 ed Fr Bld 21:15 Auto LYMPH % 06-30-2 18.0 % 10-50.0 complet 013 ed 21:15 Monocyt 22-2 5.8 % 1.7-9.3 complet es Fr 013 ed Bld 21:15 Auto Eosinop -22-2 3.1 % 0.1-12. complet hil Fr 013 0 ed Bld 21:15 Auto Basophi 22-2 0.4 % 0.1-2.0 complet ls Fr 013 ed Bld 21:15 Auto Granulo -22-2 5.5 1.8-7.8 complet cytes # 013 K/mm3 ed Bld 21:15 Auto Lymphoc 06-30-2 1.4 0.7-4.5 complet ytes Fr 013 K/mm3 ed Bld 21:15 Auto Monocyt 06-30-2 0.4 0.1-1.0 complet es # 013 K/mm3 ed Bld 21:15 Auto Eosinop 06-30-2 0.2 0.0-0.4 complet hil # 013 K/mm3 ed Bld 21:15 Auto Basophi 06-30-2 0.0 0-0.2 complet ls # 013 K/MM3 ed Bld 21:15 Auto Procedures Procedure DOS Code Location Performer Comment OPEN AND 4572 RADHA GARCIA OTHER 3 [facility] CECECTOMY INC INC OBSERVATI 25002 SCHULSTAD SCHULSTAD ON CARE 9 , CALEB , CALEB DISCHARGE MANAGEMEN T INITIAL 14959 SCHULSTAD SCHULSTAD OBSERVATI 9 , CALEB , CALEB ON CARE/DAY 50 MINUTES RADEX ABD 77096 [facility] A[facility] [place] COMPL 9 RADIOLOGY J AQT ABD W/S/E/D [place] [address] [place] [address] [facility] [place] ABDOMEN 9 RADIOLOGY JUDAH Abdalla W/O CONTRAST [address] PELVIS [address] [facility] [place] W/O 9 [place] [address] RADHA GARCIA INFUSION 9 [facility] THERAPY/P INC INC ROPHYLAXI S /DX 1ST TO 1 HR COMPREHEN 64203 RADHA GARCIA SIVE 9 [facility] MEM HOSP METABOLIC INC INC PANEL URNLS DIP 48734 RADHA GARCIA 9 [facility] STICK/TAB INC INC LET REAGENT AUTO MICROSCOP Y BLOOD 70344 RADHA GARCIA COUNT 9 [facility] COMPLETE INC INC AUTO&AUTO DIFRNTL WBC RADEX 22868 [place] HARLEEN, ABDOMEN 9 [facility] P COMPL IMAGING W/DCBTS&/ [place] [address] [place] HARLEEN, HEAD/BRAI 9 [facility] [place] P N W/O IMAGING CONTRAST ASSOCIATE MATERIAL S 3D 17546 [place] CANSECO, RENDERING 9 [facility] [place] P W/INTERP IMAGING & ASSOCIATE POSTPROCE S SS SUPERVISI ON CT PELVIS [address] [facility] [place] JOSE F, 9 RADIOLOGY J W/[place] [address] [facility] [place] JO[place] F, ABDOMEN 9 RADIOLOGY J W/[place] [address] [facility] [place] C[place], ABDOMEN 9 RADIOLOGY LUIS G W/CONTRAS T MATERIAL CT PELVIS [address] [facility] [place] CES[place], 9 RADIOLOGY LUIS G W/CONTRAS T MATERIAL CLOSED 4525 RADHA GARCIA [ENDOSCOP 8 [facility] IC] INC [facility] BIOPSY OF LARGE INTESTINE Encounters Encounter Start End Date Code Location Performer Type Date [facility] RADHA - 7 7 [facility] RADHA - 7 7 [facility] RADHA - 7 7 [facility] 6 [facility] 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 [facility] RADHA - 6 6 [facility] RADHA - 6 6 [facility] RADHA - 6 6 [facility] RADHA - 6 6 [facility] RADHA - 6 6 [facility] RADHA - 6 6 [facility]PATI[facility] RADHA - 6 6 [facility]PAT[facility] RADHA - 6 6 [facility] RADHA - 6 6 [facility] RADHA - 6 6 [facility] RADHA - 6 6 [facility]PAT[facility] RADHA - 6 6 [facility]PAT[facility] RADHA - 6 6 [facility] RADHA - 5 5 [facility]PAT[facility] RADHA - 5 5 [facility] RADHA - 5 5 [facility] RADHA - 5 5 [facility] RADHA - 5 5 [facility] RADHA - 5 5 [facility] RADHA - 5 5 [facility] RADHA - 5 5 [facility]PAT[facility] RADHA - 5 5 [facility] RADHA - 5 5 [facility]PATI[facility] RADHA - 4 4 [facility]PATI[facility] RADHA - 4 4 [facility]PATI[facility] RADHA - 4 4 [facility]PATI[facility] UNIVERSIT - 4 4 [facility] RADHA - 4 4 [facility] RADHA - 4 4 [facility] OUTPATIEN [facility] Emergency LIZETTE Mendoza MD (ER) 4 20:36 4 22:[address] [facility] Emergency LIZETTE MCNAMARA MD (ER) 4 18:43 4 20:06 [facility] Emergency LIZETTE Escudero MD (ER) 3 17:45 3 18:59 [facility] Emergency LIZETTE Mendoza MD (ER) 3 16:38 3 17:[address] [facility] Emergency LIZETTE Escudero MD (ER) 3 20:44 3 21:15 [facility] Emergency LIZETTE Mendoza MD (ER) 3 14:40 3 16:39 [facility] UNIVERSIT - 3 3 [facility] Emergency LIZETTE DIEZ (ER) 3 16:51 3 18:46 [facility] RADHA - 3 3 [facility] [place] [place] [facility] OUTPATIEN [facility] Emergency LIZETTE Escudero MD (ER) 3 21:28 3 22:25 [facility] RADHA - 3 3 [facility] Emergency LIZETTE DIEZ (ER) 3 14:18 3 16:42 [facility] RADHA - 3 3 [facility] OUTPATIEN [facility] Emergency LIZETTE Escudero MD (ER) 3 21:00 3 22:57 [facility] RADHA - 3 3 [facility] OUTPATIEN [facility] RADHA - 3 3 [facility]IENT [facility] RADHA - 3 3 [facility] RADHA [facility] 3 3 [facility] RADHA - 2 2 [facility] RADHA - 2 2 [facility] RADHA [facility] 2 2 [facility] RADHA - 2 2 [facility]EN [facility] RADHA [facility] 2 2 [facility] RADHA [facility] 2 2 [facility] RADHA - 2 2 [facility]EN [facility] RADHA [facility] 2 2 [facility] RADHA - 2 2 [facility] RADHA - 2 2 [facility]EN [facility] RADHA [facility] 2 2 [facility] RADHA - 2 2 [facility] RADHA - 2 2 [facility] RADHA [facility] 2 2 [facility] RADHA - 2 2 [facility] RADHA - 1 1 [facility] RADHA - 1 1 [facility] RADHA [facility] 1 1 [facility] RADHA - 1 1 [facility] RAD[facility] - [facility] - 1 1 [facility] - 1 1 [facility] - 1 1 [facility] - 1 1 [facility] - 1 1 [facility] - 0 0 [facility] - 0 0 [facility] - 0 0 [facility] [facility] 9 9 [facility] 9 9 [facility] 9 9 [facility] - 9 9 [facility] 9 9 [facility] 9 9 [facility] - 9 9 [facility] - 9 9 [facility] - 9 9 [facility] - 9 9 [facility] [place] - 9 9 [facility] EMERGENCY 71475 [facility], DEPT 9 9 CON[facility] [place] [place] VISIT EMERGENCY HIGH PHYS INC SEVERITY& THREAT FUNCJ OFFICE [id number] RIGOBERTO FRANKLIN OUTPATIEN 9 9 MAIRA Bernal T VISIT 15 MINUTES EMERGENCY 51077 LIAM ESCUDERO, 9 9 EMERGENCY [facility] SERVICES T VISIT HIGH/URGE ASSOCIATE NT S SEVERITY [facility]OSPITAL [facility] - 9 9 [facility] 19303 [facility] 9 9 [facility] T VISIT LOW/MODER SEVERITY OFFICE 95021 RIGOBERTO FRANKLIN OUTPATIEN 9 9 MAIRA Bernal T VISIT 15 MINUTES EMERGENCY [id number] LIAM OAKLEY DEPT 9 9 EMERGENCY JUDAH Gomez VISIT SERVICES HIGH SEVERITY& ASSOCIATE THREAT S FUN EMERGENCY 99404 [facility] 9 9 [facility] T VISIT HIGH/URGE NT SEVERITY [facility]OSPITAL [facility] - 9 9 [facility] T OFFICE 34416 RIGOBERTO FRANKLIN OUTPATIEN 9 9 MAIRA Bernal T VISIT 15 MINUTES EMERGENCY 61163 JOSE ESCUDERO, 9 9 [facility] T VISIT ON HIGH/URGE NT SEVERITY EMERGENCY 20546 [facility] 9 9 [facility] DE[facility] T VISIT LOW/MODER SEVERITY [facility]OSP[facility] - 9 9 [facility] T OFFICE 13773 [facility], CON[facility]ULTAT 9 9 [facility] [place] 60 MIN [facility] EMERGENCY 71123 MARLEN GERMAN DEPT 9 9 [facility] [place] VISIT EMERGENCY HIGH PHYS INC SEVERITY& THREAT FUNJ OFFICE 81058 RIGOBERTO FRANKLIN OUTPATIEN 9 9 MAIRA Bernal T VISIT 15 MINUTES [facility]OSPITAL [facility] - 9 9 [facility] T EMERGENCY 02529 [facility] 9 9 [facility] DEPARTMEN INC T VISIT LIMITED/M INOR PROB EMERGENCY 40396 JOSE ESCUDERO, 9 9 [facility] T VISIT ON LOW/MODER SEVERITY OFFICE 26966 RIGOBERTO FRANKLIN OUTPATIEN 9 9 MAIRA Bernal T VISIT 15 MINUTES EMERGENCY 79677 [facility] 9 9 [facility] DEPARTMEN INC T VISIT LOW/MODER SEVERITY EMERGENCY 66565 JOSE ESCUDERO, 9 9 [facility] T VISIT ON MODERATE SEVERITY HOSPITAL [facility] - 9 9 [facility] T OFFICE 52518 RIGOBERTO FRANKLIN OUTPATIEN 9 9 MAIRA Bernal T VISIT 15 MINUTES EMERGENCY 21161 MARLEN VENTURA DEPT 9 9 [facility] AMANDA Wolfe VISIT EMERGENCY HIGH PHYS INC SEVERITY& THREAT FUNJ EMERGENCY 30629 JOSE ESCUDERO, 9 9 [facility] VISIT ON MODERATE SEVERITY [facility]OSPITAL [facility] - 9 9 [facility] EMERGENCY 13963 [facility] 9 9 [facility] VISIT LIMITED/M INOR [facility] RAD[facility] - 8 8 [facility] 8 8 [facility] 8 8 [facility] - 8 8 [facility] UNIVERSIT - 8 8 [facility] - 8 8 [facility] - 8 8 [facility] - 8 8 [facility] - 8 8 [facility] - 8 8 [facility] - 8 8 [facility] - 8 8 [facility] - 8 8 [facility] - 8 8 [facility] - 8 8 [facility] - 8 8 [facility] 8 8 [facility] - 8 8 [facility] 8 [facility] 8 8 [facility] 8 [facility] 8 8 [facility]
--- OUTSIDE RECORDS SUMMARY | 2017-02-13 21:02 | External Medical Summary Rpt | CCD ---
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 RIGOBERTO FRANKLIN OUTPATIEN 9 9 MAIRA Bernal T VISIT 15 MINUTES HOSPITAL RADHA - 9 9 [facility] T EMERGENCY 54634 RADHA 9 9 [facility] DEPARTMEN INC T VISIT LIMITED/M INOR PROB EMERGENCY 00271 JOSE ESCUDERO, 9 9 [facility] T VISIT ON LOW/MODER SEVERITY OFFICE 55004 RIGOBERTO FRANKLIN OUTPATIEN 9 9 MAIRA Bernal T VISIT 15 MINUTES EMERGENCY 40859 RADHA 9 9 [facility] DEPARTMEN INC T VISIT LOW/MODER SEVERITY EMERGENCY 17336 JOSE ESCUDERO, 9 9 [facility] T VISIT ON MODERATE SEVERITY HOSPITAL RADHA - 9 9 [facility] INC T OFFICE 29168 RIGOBERTO FRANKLIN OUTPATIEN 9 9 MAIRA Bernal T VISIT 15 MINUTES EMERGENCY 98601 MARLEN VENTURA DEPT 9 9 [facility] AMANDA Wolfe VISIT EMERGENCY HIGH PHYS INC SEVERITY& THREAT FUNJ EMERGENCY 37631 JOSE ESCUDERO, 9 9 [facility] VISIT ON MODERATE SEVERITY HOSPITAL RADHA - 9 9 [facility] EMERGENCY 22291 RADHA 9 9 [facility] VISIT LIMITED/M INOR [facility] RADHA - 8 8 [facility] RADHA - 8 8 [facility] RADHA - 8 8 [facility] RADHA [facility] 8 8 [facility] UNIVERSIT - 8 8 [facility] RADHA - 8 8 [facility] RADHA - 8 8 [facility] RADHA - 8 8 [facility] RADHA - 8 8 [facility] RADHA - 8 8 [facility] RADHA - 8 8 [facility] RADHA - 8 8 [facility] RADHA - 8 8 [facility] RADHA - 8 8 [facility] RADHA [facility] 8 8 [facility] RADHA - 8 8 [facility] RADHA [facility] 8 8 [facility] RADHA - 8 8 [facility] 8 [facility] 8 8 [facility] - 8 8 [facility] RAD[facility] - 8 8 [facility] 8 8 [facility] 8 8 [facility] 8 8 [facility]
--- OUTSIDE RECORDS SUMMARY | 2017-02-13 21:16 | External Medical Summary Rpt | CCD ---
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 CH 10 MA AR CY D MG W TA BL ET 00 06 08 00 60 30 CL 19 OC Ac 83 -1 -2 .0 IN 60 ON ti 21 9- 7- 00 IC 44 NE ve 01 20 20 LL 50 09 09 PH 0 AR HARSHIL MA HN CY 00 08 08 00 12 3 CL 19 GA Ac 40 -0 -1 .0 IN 84 IN ti 60 7- 3- 00 IC 49 EY ve 35 20 20 70 09 09 PH IL 5 AR CH MA AE CY L [...] TO 0 AR NI MA O CY LO 37 07 07 00 30 30 [...] 8- 0- 00 IC 01 LD ve AL 00 20 20 ED 10 09 09 PH RI NI 3 AR CH SO MA AR LO CY D NE W 4 MG DO SE PK AL 68 07 07 00 40 10 CL [...] D MG W CA PS UL E BU 00 05 07 01 60 30 EA 12 AR Ac AL 18 -0 -[address] 62 NO [...] MA AR CY D W 65 04 07 00 90 30 CL [...] 20 ZA 70 09 09 PH RI AL 6 AR CH IN MA AR E [...] 8- 4- 00 SI 58 EY ve AL 02 20 20 DE ED 20 09 09 IL NI 7 PH CH SO AR AE LO MA L NE CY S 4 OF MG CY NT DO HI SE AN PK A BU 00 05 05 00 60 30 EA 12 AR Ac AL 18 -0 -[address] 62 NO [...] DE UT 50 09 09 1 PH IL AR CH MA AE CY L OF CY NT HI AN A HY 00 05 05 00 16 [address] 55 -1 -[address] 74 ES ti OX 50 4- 1- 00 SI 36 TN ve YZ 32 20 20 DE UT IN 30 09 09 E 4 PH IL PA AR CH M MA AE 25 [...] CY OF CY NT HI AN A AL 00 04 05 00 60 15 EA [...] #3 W 93 TA 8 BL ET AL 00 03 04 01 40 10 RI [...] #3 W TA 93 BL 8 ET AL 00 02 03 00 40 10 RI [...] 09 PH RI TA 1 AR CH IL MA AR N- CY D CA W [...] 08 08 RI TA 5 PH CH IL AR AR N- MA D CA CY W FF OF 50 CY -3 NT 25 HI -4 AN 0 A 60 10 11 01 18 23 [...] W OF CY NT HI AN A AL 00 10 11 00 40 10 EA 10 AR Ac OC 09 -3 -[address] 07 NO ti HL 39 0- 7- 00 SI 93 LD ve OR 65 20 20 DE PE 20 08 08 RI RA 1 PH CH ZI AR AR NE MA D CY W 10 OF MG CY NT TA HI B AN A PA [...] ve TA 40 20 20 DE AN IL 71 08 08 TO N 2 PH NI B1 AR O 2 MA 1, CY 00 0 OF MC CY G NT TA HI B AN A IM [...] 00 60 30 EA 10 AR Ac AL 09 -2 -[address] 01 NO ti OX 30 4- 7- 00 SI 01 LD ve EN 14 20 20 DE 90 08 08 RI 50 1 PH CH 0 AR AR MG MA D CY W TA BL OF ET CY NT HI AN A AM 00 [...] 7- 3- 00 SI 49 Av ve AL 02 20 20 DE ai ED 20 [...] .0 TE 25 IN ti AD 30 4 44 EY ve OL 05 20 20 AI 80 08 08 D IL HC 1 PH CH L AR AE 50 M L #3 S MG 93 8 TA BL ET CI 00 10 10 00 14 7 RI 75 GA Ac AL 17 -0 -2 .0 TE 25 IN ti OF 25 4 42 EY ve LO 31 20 20 AI XA 26 08 08 D IL CI 0 PH CH N AR AE HC M L L #3 S 50 93 0 8 MG TA B ME 00 09 10 00 12 30 EA 99 No Ac TH 60 -2 -[address] 57 t ti OC 34 2- 9 SI 01 Av ve AR 48 20 20 0 DE ai BA 62 08 08 la MO 1 PH bl L AR e 75 MA 0 CY MG OF TA CY BL NT ET HI AN A PA 60 09 10 00 30 30 EA 99 No Ac RO 50 -2 -[address] 57 t ti XE 50 2- 9- 00 SI 00 Av ve TI 08 20 20 DE ai NE 30 08 08 la 1 PH bl HC AR e L MA 20 CY MG OF CY TA NT BL HI ET AN A MU 00 09 10 00 22 5 EA 99 No Ac PI 09 -2 -[address] 57 t ti RO 31 2- 9- 00 SI 03 Av ve CI 01 20 20 DE ai N 04 08 08 la 2% 2 PH bl AR e OI MA NT CY ME NT OF CY NT HI AN A AL 10 07 10 02 60 15 EA [...] 08 08 la TA 5 PH bl IL AR e N- MA CA CY FF OF 50 CY -3 NT 25 HI -4 AN 0 A 60 08 09 00 10 12 [...] CY OF CY NT HI AN A AL 00 07 09 01 60 15 EA 98 No Ac OM 78 -1 -[address] 75 t ti ET 11 7- 1- 00 SI 92 Av ve MAIN 83 20 20 DE ai ZI 01 08 08 la NE 0 PH bl AR e 25 MA CY MG OF TA CY BL NT ET HI AN A AL 00 09 09 00 70 17 EA 99 No Ac ED 60 -0 -[address] 30 t ti NI 35 2- 1- 00 SI 99 Av ve SO 33 20 20 DE ai NE 82 08 08 la 1 PH bl 10 AR e MA MG CY TA OF BL CY ET NT HI AN A 00 08 08 [...] CY OF CY NT HI AN A AL 00 07 08 00 60 15 EA [...] ve TA 40 20 20 DE ai IL 71 08 08 la N 2 PH [...] CY OF CY NT HI AN A AL 00 02 07 04 60 15 EA [...] 0- 3- 00 SI 32 Av ve AL 02 20 20 DE ai ED 20 [...] 20 AI IN 70 08 08 D IL 1 PH CH 50 AR AE 0 [...] CY OF CY NT HI AN A AL 00 02 06 03 60 15 EA [...] ve TA 40 20 20 DE ai IL 71 08 08 la N 2 PH bl B1 AR e 2 MA 1, CY 00 0 OF MC CY G NT TA HI B AN A AL 00 02 05 02 60 15 EA [...] ve TA 40 20 20 DE ai IL 71 08 08 la N 2 PH [...] 34 4- 4- 00 86 Av ve AL 59 20 20 AI ai ED 31 [...] 00 14 7 RI 72 No Ac AL 17 -1 -2 .0 TE 89 t [...] CY OF CY NT HI AN A AL 00 02 04 01 60 15 EA [...] CY OF CY NT HI AN A BU 00 02 04 01 60 15 EA 96 No Ac TA 60 -1 -[address] 85 t ti LB 32 8- 7- 00 SI 57 Av ve -A 54 20 20 DE ai CE 42 08 08 la TA 8 PH bl IL AR e N- MA CA CY FF OF 50 CY -3 NT 25 HI -4 AN 0 A AC 00 02 04 00 6. 2 RI 72 No Ac ET 09 -2 -0 00 TE 18 t ti AM 30 6- 7- 0 94 Av ve IN 15 20 20 AI ai OP 01 08 08 D la HE 0 PH bl N- AR e CO M D #3 #3 93 8 TA BL ET AL 00 02 03 00 60 15 EA [...] OF CY NT HI AN A 65 02 03 00 [...] AM M PO #3 O 93 8 SM 49 01 03 01 30 30 EA 96 No Ac 34 -1 -[address] 38 t ti 80 6- 6- 00 SI 58 Av ve TA 40 20 20 DE ai IL 71 08 08 la N 2 PH bl B1 AR e 2 MA 1, CY 00 0 OF MC CY G NT TA HI B AN A ME 00 02 03 00 21 6 EA 96 No Ac TH 78 -1 -[address] 85 t ti YL 15 8- 6- 00 SI 54 Av ve AL 02 20 20 DE ai ED 20 [...] ve TA 40 20 20 DE ai IL 71 08 08 la N 2 PH [...] 93 -M 8 CR 10 0 MG 00 01 03 00 10 2 RI 71 No Ac 40 -1 -2 .0 TE 46 t ti 60 2- 5- 00 83 Av ve 35 20 20 AI ai 70 08 08 D la 5 PH bl AR e M #3 93 8 Procedures Procedure DOS Code Location Performer Comment OPEN AND 4572 RADHA GARCIA OTHER 3 [facility] CECECTOMY INC INC OBSERVATI 35569 WENDY NGUYEN ON CARE 9 , CALEB ELLIS DISCHARGE MANAGEMEN T INITIAL 97091 WENDY ARIASSTBUD OBSERVATI 9 , CALEB ELLIS ON CARE/DAY 50 MINUTES RADEX ABD 52239 [facility] A[facility]LI [place] COMPL 9 RADIOLOGY J AQT ABD W/S/E/D [address] [address] [place] [address] [facility] SHELTON, ABDOMEN 9 RADIOLOGY JUDAH L W/O CONTRAST MATERIAL [place] PELVIS 76176 [facility] ANALI [place], W/O 9 [place] [address] RAD[facility] INFUSION 9 [facility] THERAPY/P INC INC ROPHYLAXI S /DX 1ST TO 1 HR COMPREHEN 41080 RADHA GARCIA SIVE 9 [facility] METABOLIC INC INC PANEL URNLS DIP 82049 [facility] GARCIA 9 [facility] STICK/TAB INC INC LET REAGENT AUTO MICROSCOP Y BLOOD 96513 RADHA GARCIA COUNT 9 [facility] COMPLETE INC INC AUTO&AUTO DIFRNTL WBC RADEX [address] [facility] HARLEEN, ABDOMEN 9 [facility] P COMPL IMAGING W/DCBTS&/ [place] [address] [facility], HEAD/BRAI 9 [facility] [place] P N W/O IMAGING CONTRAST ASSOCIATE MATERIAL S 3D [address]327 [place] HARLEEN, RENDERING 9 [facility] [place] P W/INTERP IMAGING & ASSOCIATE POSTPROCE S SS SUPERVISI ON CT PELVIS [address] [facility] [place] JOSE F, 9 RADIOLOGY J W/[place] [address] [facility] [place] JOSE F, ABDOMEN 9 RADIOLOGY J W/[place] [address] [facility] [place] CES[place], ABDOMEN 9 RADIOLOGY LUIS G W/CONTRAS T MATERIAL CT PELVIS [address] [facility] [place] CESAR, 9 RADIOLOGY LUIS G W/CONTRAS T MATERIAL CLOSED 4525 RADHA GARCIA [ENDOSCOP 8 [facility] IC] INC INC BIOPSY OF LARGE INTESTINE Encounters Encounter Start End Date Code Location Performer Type Date [facility] RAD[facility] - 7 7 [facility] OUTPATIEN INC [facility] RADHA - 7 7 [facility] RADHA [facility] 7 7 [facility] - 7 7 [facility]EN [facility] - [address] [facility] [address] - 7 7 [facility] - 7 7 [facility] - 7 7 [facility] - OTHER 6 6 [facility] RADHA - 6 6 [facility]PATIEN [facility]DA - 6 6 [facility]PAT[facility] RADHA - 6 6 [facility] RADHA - 6 6 [facility] RADHA - 6 6 [facility] RADHA - 6 6 [facility] RADHA - 6 6 [facility] RADHA - 6 6 [facility] RADHA - 6 6 [facility] RADHA - 6 6 [facility]PAT[facility] RADHA - 6 6 [facility]PATI[facility] RADHA - 6 6 [facility]PAT[facility] RADHA - 6 6 [facility]PATI[facility] RADHA - 5 5 [facility]PATI[facility] RADHA - 5 5 [facility]PAT[facility] RADHA - 5 5 [facility]PAT[facility] RADHA - 5 5 [facility]PAT[facility] RADHA - 5 5 [facility]PATI[facility] RADHA - 5 5 [facility]PAT[facility] RADHA - 5 5 [facility]PAT[facility] RADHA - 5 5 [facility]PAT[facility] RADHA - 5 5 [facility]PAT[facility] RADHA - 5 5 [facility]PATI[facility] RADHA - 4 4 [facility]PATI[facility] RADHA - 4 4 [facility]PAT[facility] RADHA - 4 4 [facility]PATIEN [facility] - 4 4 [facility] RADHA - 4 4 [facility]PATI[facility]HA - 4 4 [facility]PATI[facility] - 3 3 [facility] RADHA - 3 3 [facility]PATIEN [facility] RADHA - 3 3 [facility]PATIEN [facility] RADHA - 3 3 [facility]PATI[facility] RADHA - 3 3 [facility]PATI[facility] RADHA - 3 3 [facility] INPATIENT [facility] RADHA - 3 3 [facility]PATIEN [facility] RADHA - 3 3 [facility]PATI[facility] RADHA - 2 2 [facility]PATIEN [facility]HA - 2 2 [facility]PATI[facility] RADHA - 2 2 [facility] OUTPATIEN [facility] RADHA - 2 2 [facility] OUTPATIEN [facility] RADHA - 2 2 [facility] OUTPATIEN [facility] RDAHA - 2 2 [facility] OUTPATIEN [facility] RADHA - 2 2 [facility] OUTPATIEN [facility] RADHA - 2 2 [facility] OUTPATIEN [facility] RADHA - 2 2 [facility] OUTPATIEN [facility] RADHA - 2 2 [facility]PATIEN [facility] RADHA - 2 2 [facility]PATIEN [facility] RADHA - 2 2 [facility]PATIEN [facility] RADHA - 2 2 [facility]PATIEN [facility] RADHA - 2 2 [facility]PATIEN [facility] RADHA - 2 2 [facility]PATI[facility] RADHA - 1 1 [facility]PATI[facility] RADHA - 1 1 [facility] OUTPATIEN [facility] RADHA - 1 1 [facility] OUTPATIEN [facility] RADHA - 1 1 [facility]PATIEN [facility] RADHA - 1 1 [facility]PATIEN [facility] RADHA - 1 1 [facility]PATIEN [facility] RADHA - 1 1 [facility]PAT[facility] RADHA - 1 1 [facility] OUTPATIEN [facility] RADHA - 1 1 [facility] OUTPATIEN INC [facility] RADHA - 1 1 MEM [...] - 0 0 MEM [facility] OUTPATIEN INC [facility] RADHA - 9 9 [facility] OUTPATIEN INC [facility] RADHA - 9 9 [facility] OUTPATIEN [facility] RADHA - 9 9 [facility]PATIEN [facility] RADHA - 9 9 [facility] OUTPATIEN [facility] RADHA - 9 9 [facility]PATIEN [facility] RADHA - 9 9 [facility]PATIEN [facility] RADHA - 9 9 [facility]PATIEN [facility] RADHA - 9 9 [facility]PATIEN [facility] RADHA - 9 9 [facility]PATIEN [facility] RADHA - 9 9 [facility]PATIEN [facility] - 9 9 [facility] - 9 9 [facility] - 9 9 [facility] [place] [facility] 9 [facility] [address] [facility], DEPT 9 9 [facility] [place] VISIT EMERGENCY HIGH PHYS INC SEVERITY& THREAT FUNCJ OFFICE 28086 RIGOBERTO FRANKLIN OUTPATIEN 9 9 MAIRA Bernal T VISIT 15 MINUTES HOSPITAL RADHA - 9 9 [facility] OUTPATIEN INC T EMERGENCY 33125 RADHA 9 9 [facility] DEPARTMEN INC T VISIT LOW/MODER SEVERITY EMERGENCY 70552 LIAM JALLOH 9 9 EMERGENCY [facility] DEPARTMEN SERVICES T VISIT HIGH/URGE ASSOCIATE NT S SEVERITY OFFICE 91777 RIGOBERTO FRANKLIN OUTPATIEN 9 9 MAIRA Bernal T VISIT 15 MINUTES EMERGENCY 15560 LIAM [place] DEPT 9 9 EMERGENCY JUDAH VISIT SERVICES HIGH SEVERITY& ASSOCIATE THREAT S FUN EMERGENCY 49139 RADHA 9 9 [facility] DEPARTMEN INC T VISIT HIGH/URGE NT SEVERITY HOSPITAL [facility] - 9 9 [facility] OUTPATIEN INC T OFFICE 20114 RIGOBERTO FRANKLIN OUTPATIEN 9 9 MAIRA Bernal T VISIT 15 MINUTES EMERGENCY 61277 [facility] 9 9 [facility] DEPARTMEN INC T VISIT LOW/MODER SEVERITY HOSPITAL RAD[facility] - 9 9 [facility] OUTPATIEN INC T EMERGENCY 57151 JOSE JALLOH, 9 9 [facility] SARAH S DEPARTMEN CORPORATI T VISIT ON HIGH/URGE NT SEVERITY OFFICE 92921 [facility], CONSULTAT [address] [facility]IENT RIKKI 60 MIN [facility]GENC[facility] 51276 MARLEN GERMAN DEPT 9 9 [facility] [place] VISIT EMERGENCY HIGH PHYS INC SEVERITY& THREAT FUNCJ OFFICE 38508 RIGOBERTO FRANKLIN OUTPATIEN 9 9 MAIRA Bernal T VISIT 15 MINUTES EMERGENCY 38354 RADHA 9 9 [facility] DEPARTMEN INC T VISIT LIMITED/M INOR PROB HOSPITAL RADHA - 9 9 [facility] OUTPATIEN INC T EMERGENCY 91695 JOSE JALLOH, 9 9 [facility] VISIT ON LOW/MODER SEVERITY OFFICE 20501 RIGOBERTO FRANKLIN OUTPATIEN 9 9 MAIRA Bernal T VISIT 15 MINUTES HOSPITAL RAD[facility] - 9 9 [facility] OUTPATIEN INC T EMERGENCY 40104 JOSE JALLOH, 9 9 [facility] T VISIT ON MODERATE SEVERITY EMERGENCY 84491 RADHA 9 9 [facility] DEPARTMEN INC T VISIT LOW/MODER SEVERITY OFFICE 27689 RIGOBERTO FRANKLIN OUTPATIEN 9 9 MAIRA Bernal T VISIT 15 MINUTES EMERGENCY 30320 MARLEN VENTURA DEPT 9 9 [facility] [place] VISIT EMERGENCY HIGH PHYS INC SEVERITY& THREAT FUNCJ EMERGENCY 62127 RADHA 9 9 [facility] DEPARTMEN INC T VISIT LIMITED/M INOR PROB HOSPITAL RADHA - 9 9 [facility] OUTPATIEN INC T EMERGENCY 94736 JOSE JALLOH, 9 9 [facility] SARAH S DEPARTMEN CORPORATI T VISIT ON MODERATE SEVERITY HOSPITAL RADHA - 8 8 [facility] OUTPATIEN INC T HOSPITAL RAD[facility] - 8 8 [facility] OUTPATIEN INC T [facility]OSP[facility] RAD[facility] - 8 8 [facility] OUTPATIEN INC T [facility] - 8 8 [facility]PATIEN [facility] 8 8 [facility] - 8 [...] T [facility] - 8 8 [facility] 8 8 [facility] - 8 8 [facility]
--- OUTSIDE RECORDS SUMMARY | 2017-02-13 21:16 | External Medical Summary Rpt | CCD ---
Author Author , SINTIA PATRICIO Address Unknown Phone [email or web address] [place] Care Team Providers Care Geophysics Professor Name Role Phone ALFARIS SHARON, ALFARIS Unavailable Unavailable MOH Falguni KOHLER, Unavailable Unavailable Falguni KOHLER MD, PSC, Unavailable Unavailable MOISES ROGERS MD, PSC RIGOBERTO NANCE ARNOLD Unavailable Unavailable LEE ANN MAIRA FRANKLIN W, Unavailable Unavailable MAIRA FRANKLIN W SUSHILA KELLY Unavailable Unavailable TAMIKA MENDOZA, BESCJ Unavailable Unavailable CALVIN HARTLEY, Unavailable Unavailable CALVIN LIVINGSTON MICHAEL A, Unavailable Unavailable SARAH DODSON [facility] Unavailable Unavailable SERVICE, [facility]available Unavailable SERVICE, [facility] JUDAH SHELTON, CAT, Unavailable Unavailable JUDAH SPRAGUE, Unavailable Unavailable GLO MCCULLOUGH, Unavailable Unavailable [facility], [facility]available Unavailable [facility], Unavailable [facility] Unavailable Unavailable PHYSICIANS, [facility] TERESA CUETO, Unavailable Unavailable CASEY ZAMORA, Unavailable Unavailable CASEY MOORE, Unavailable Unavailable CHARY KING [facility] Unavailable Unavailable [facility] VALERIE KINSEY, Unavailable Unavailable VALERIE KINSEY JAMES P, Unavailable Unavailable JUDAH OAKLEY GAINEY Unavailable Unavailable SARAH VALENCIA, Unavailable Unavailable SARAH JALLOH JOHN W, Unavailable Unavailable KP [facility] Unavailable Unavailable LUIS GUERRERO, Unavailable Unavailable LUIS GUERRERO [facility] Unavailable [facility] Unavailable Unavailable INC, [facility] Unavailable Unavailable HOSPITAL P, [facility] P GARCIA RA, GARCIA RA Unavailable Unavailable [facility], Unavailable Unavailable [facility], Unavailable Unavailable [facility] Un[facility] Unavailable [facility], [facility] Unavailable Un[facility], [facility] Unavailable Unavailable SERVICES, [facility] JYOTI ROMANO, Unavailable Unavailable SHELDON PÉREZ JR, Unavailable Unavailable SHELDON CANSECO WILLIAM F, Unavailable Unavailable REY GAN JOHN, Unavailable Unavailable KP EL MORRISON JUAN ANTONIO, MORRISON Unavailable Unavailable JUAN ANTONIO [facility], [facility] Unavailable Unavailable [facility], Unavailable [facility]available [facility], Unavailable Unavailable [facility] GUIDO RENTERIA, Unavailable Unavailable [facility]UID[facility] RENTERIA [facility] Unavailable Unavailable [facility], [id number] Unavailable Unavailable [id number] Unavailable [facility]available [id number] [id number], [facility] [id number] [address] [id number] SADEK MOH, SADEK MOH Unavailable Unavailable SCHULSTAD BOONE, Unavailable Unavailable SCHULSTAD BOONE SCHULSTBUD CALEB, Unavailable Unavailable SCHULSTAD, CALEB SCIFRES ANG, SCIFRES Unavailable Unavailable ANG SMALL, KP T, SMALL, Unavailable Unavailable KP T SOKAN, MILENA O, Unavailable Unavailable SOKAN, MILENA O [facility] Unavailable Unavailable [facility]Y [facility], [facility] Unavailable Unavailable [facility], Unavailable Unavailable [facility] Unavailable Unavailable PHYSICIANS, [facility] WILFRED COOPER, Unavailable Unavailable WILFRED COOPER WILLIAM F, Unavailable Unavailable REY GERMAN [facility] Unavailable Unavailable HOSPITALS, [facility], Unavailable Unavailable [facility] VORKPOR NEAL, VORKPOR Unavailable Unavailable NEAL [facility] ([id number], Unavailable Unavailable [id number] MARLI MAY Unavailable Unavailable AMANDA VENTURA, Unavailable Unavailable AMANDA VENTURA [facility], Unavailable [facility]available [facility] Purpose Continuity of Care Document - 03-19-2007 through 2016 Problems Code Diagnosis DOS Provider Status [id number] [facility] 01-07-2017 [facility] CERVICAL [facility] DISC INC DEGENERATIO N UNS CERV REGION 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 SMALL IMAGING ASS INTESTINE W/O COMP R1084 GENERALIZED 12-21-2016 [facility] ABDOMINAL PHYSICIANS, PAIN PLLC R110 NAUSEA 12-21-2016 [facility] M791 MYALGIA 12-11-2016 MOISES ROGERS MD, PSC R05 COUGH 12-07-2016 [facility] R0602 SHORTNESS 12-07-2016 [facility] M4144 NEUROMUSCUL 11-19-2016 ALTHEA RUSSELL MD, PSC SCOLIOSIS THORACIC REGION M419 SCOLIOSIS 11-19-2016 [facility] UNSPECIFIED [facility] INC M542 CERVICALGIA 11-19-2016 [facility] INC M545 LOW BACK 11-19-2016 KAYE RUSSELL MD, PSC L83540 CUTANEOUS 10-11-2016 [facility] ABSCESS OF EMERGENCY ABDOMINAL PHYSICIANS WALL J449 CHRONIC 09-15-2016 [facility] OBSTRUCTIVE [facility] PULMONARY INC DISEASE UNS T473NYW SPRAIN 09-15-2016 [facility] LIGAMENTS PHYSICIANS, LUMBAR PLLC SPINE INITIAL ENCOUNTER Z720 TOBACCO USE 09-15-2016 [facility] INC D04564 OTHER 09-10-2016 [facility] Z681 BODY MASS 09-07-2016 ST INDEX 19.9 [facility] OR LESS PHYSICIANS ADULT R208 OTHER 08-29-2016 ST DISTURBANCE [facility] S OF SKIN PHYSICIANS SENSATION G8918 OTHER ACUTE 08-24-2016 [facility] RAL PAIN R109 UNSPECIFIED 08-24-2016 [facility] Z711 PERS FEARED 08-24-2016 [employer] [facility] SERV COMPLAINT FOUNDATION WHOM NO DX IS MADE H08922 OTHER 08-24-2016 [employer] [facility] SERV [facility]OUND[facility] RAL STATES Z09 ENC F/U 08-17-2016 ST EXAM AFTR [facility] CMPL TX OTH PHYSICIANS THAN MALIG NEOPLSM K5080 CROHNS 08-16-2016 ST DISEASE [facility] SMALL & PHYSICIANS LARGE INTESTINE W/O COMP E46 UNSPECIFIED 08-14-2016 [facility] PROTEIN-DAVID PHYSICIANS ORIE MALNUTRITIO N N390 URINARY 08-14-2016 [facility] TRACT EMERGENCY INFECTION PHYSICIANS SITE NOT SPECIFIED R0781 PLEURODYNIA 08-14-2016 [facility] R0789 OTHER CHEST 08-14-2016 [facility] PAIN [facility]ERGENCY PHYSICIANS R079 CHEST PAIN 08-14-2016 [facility] UNSPECIFIED EMERGENCY PHYSICIANS R1013 EPIGASTRIC 07-19-2016 [facility]IN [facility] X615EKR INFECTION 07-01-2016 [facility] FOLLOWING ASSOCIATES PROCEDURE OF [facility] INITIAL ENCOUNTER J432 CENTRILOBUL 06-12-2016 ST AR [facility] EMPHYSEMA PHYSICIANS R918 OTHER 06-12-2016 ST NONSPECIFIC [facility] ABNORMAL PHYSICIANS FINDING OF LUNG FIELD J441 CHRONIC 06-06-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 DZ W/EXACERBAT ION J9601 ACUTE 06-06-2016 [facility] FAILURE WITH HYPOXIA K432 INCISIONAL 06-01-2016 ST HERNIA [facility] WITHOUT PHYSICIANS OBSTRUCTION /GANGRENE J9690 RESP FAIL 05-30-2016 [facility] UNS UNS ASSOC[facility]ATES WHETHER OF [facility] W/HYPOXIA/H YPERCAPNIA R0902 HYPOXEMIA 05-26-2016 [facility] V57292 MIGRAINE 04-04-2016 ST UNS NOT [facility] INTRACT [...] HISTORY [facility] OTHER PHYSICIANS DISEASES DIGESTIVE SYSTEM 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 I83532 MIGRAINE 02-25-2016 [facility] W/O AURA EMERGENCY NOT INTRACT PHYSICIANS W/O STAT MIGRAIN K469 UNS 02-25-2016 [facility] ABDOMINAL EMERGENCY HERNIA W/O PHYSICIANS OBSTRUCTION OR GANGRENE N36014 ENCOUNTER 02-22-2016 ST VETERINARY X RAY OPERATOR EXAM [facility] GENERAL RTN PHYSICIANS W/O ABNORMAL FIND K5090 CROHNS 01-25-2016 ST DISEASE UNS [facility] WITHOUT PHYSICIANS COMPLICATIO NS K5900 CONSTIPATIO 01-11-2016 [facility] N [facility]ERGENCY UNSPECIFIED PHYSICIANS R1031 RIGHT LOWER 01-11-2016 [facility] PAIN OF [facility] J209 ACUTE 11-18-2015 [facility] BRONCHITIS PHYSICIANS, UNSPECIFIED PLLC J40 BRONCHITIS 10-28-2015 [facility] NOT PHYSICIAN SPECIFIED GROUP ACUTE OR CHRONIC V78670 CROHNS 09-15-2015 [facility] DISEASE UNS [facility]OS[facility] W/OTHER INC COMPLICATIO N R1110 VOMITING 09-15-2015 [facility] UNSPECIFIED PHYSICIANS, PLLC M5430 SCIATICA 09-01-2015 [facility] UNSPECIFIED [facility] SIDE INC R51 HEADACHE 08-29-2015 [facility] PHYSICIANS GROUP M5441 LUMBAGO 08-04-2015 [facility] [...] B FOUNDATION GROUP VITAMINS J329 CHRONIC 01-31-2015 [facility] SINUSITIS PHYSICIANS UNSPECIFIED GROUP [id number] STRN UNS 01-19-2015 [facility] M&T SHLDR PHYSICIANS, UP ARM LEVL PLLC LT ARM INIT ENC 496 CHRONIC 12-01-2014 [facility] NEC 490 BRONCHITIS 11-30-2014 [facility] NOT PHYSICIANS SPECIFIED GROUP ACUTE OR CHRONIC 11570 WHEEZING 11-30-2014 [facility] PHYSICIANS GROUP 4659 ACUTE URIS 11-24-2014 [facility] OF PHYSICIANS, UNSPECIFIED PLLC SITE 7862 COUGH 11-24-2014 [facility] 23225 CHEST PAIN 11-24-2014 [facility]PEC[facility] 7869 OTH 11-24-2014 [place] [facility] MEDICAL INVOLVING IMAGING ASS RESPIRATORY SYSTEM&CHES T 5559 REGIONAL 11-08-2014 [facility] ENTERITIS PHYSICIANS OF GROUP UNSPECIFIED SITE 4553 EXTERNAL 11-03-2014 [place] [facility] WITHOUT FOUNDATION MENTION COMP 75977 ATROPHIC 11-03-2014 [facility] WITHOUT MENTION OF HEMORRHAGE 89035 ULCERATION 11-03-2014 [facility] HOSP INTESTINE INC 59122 DIARRHEA 11-03-2014 [facility] 39201 ABDOMINAL 11-03-2014 [facility] PA[facility], SERV UNSPECIFIED FOUNDATION SITE 34732 ABDOMINAL 11-03-2014 [facility] PAIN, MEM [facility]OS[facility] GENERALIZED INC 17188 OBSTRUCTIVE 10-10-2014 AREN [facility] CHRONIC BRONCHITIS WITHOUT EXACERBAT 7840 HEADACHE 10-05-2014 SUSHILA L 2409 GOITER, 08-31-2014 [facility] UNSPECIFIED PHYSICIANS GROUP 06630 ABDOMINAL 08-17-2014 YEIMI ISAAC PAIN OTHER SPECIFIED SITE 2662 OTHER 08-16-2014 [facility] B-COMPLEX SERV DEFICIENCIE FOUNDATION S 2689 UNSPECIFIED 08-16-2014 [facility] VITAMIN D SERV DEFICIENCY FOUNDATION 5550 REGIONAL 08-16-2014 [facility] ENTERITIS [facility] OF SMALL INC INTESTINE 5552 RGN 08-16-2014 [facility] ENTERITIS SERV SMALL FOUNDATION INTESTINE W/LG INTESTINE 54133 HEMATURIA 07-07-2014 [place] U[facility]PECIFIED [facility]ING ASS 3674 PRESBYOPIA 06-25-2014 SCIFRES ANG 2859 UNSPECIFIED 04-13-2014 [facility] ANEMIA PHYSICIANS GROUP 85730 OTHER 04-13-2014 [facility] MALAISE AND PHYSICIANS FATIGUE GROUP 18628 OTHER 03-08-2014 [place] NONSPECIFIC MEDICAL ABNORMAL IMAGING ASS FINDING OF LUNG FIELD 1320 PEDICULUS 02-21-2014 [facility] CAPITIS PHYSICIANS GROUP 486 PNEUMONIA, 02-21-2014 [facility] ORGANISM PHYSICIANS UNSPECIFIED GROUP V5869 LONG-TERM 02-21-2014 [facility] (CURRENT) [facility] USE OF HOSPITAL P OTHER MEDICATIONS 19246 SHORTNESS 02-20-2014 [place] [facility] 47053 MIGRAINE 02-12-2014 [facility] UNSP W/O [facility] INTRACT W/O HOSPITAL P STATUS MIGRAINOSUS 48867 UNSPECIFIED 01-23-2014 [facility] NEAL CONSTIPATIO N 97646 ABDOMINAL 01-23-2014 [facility] NEAL PAIN, LEFT LOWER QUADRANT 44071 NAUSEA 01-11-2014 [place] [facility] ALONE [facility] 2768 HYPOPOTASSE 12-15-2013 [facility] INC 60218 ABDOMINAL 12-10-2013 [facility] NEAL PAIN RIGHT LOWER QUADRANT 5589 OTH&UNSPEC 12-06-2013 [facility] NEAL NONINFECTIO US GASTROENTER ITIS&COLITI S 92560 VOMITING 12-06-2013 [facility] NEAL ALONE 7242 LUMBAGO 11-10-2013 SEN NEAL 7245 UNSPECIFIED 11-10-2013 [place] [facility] 72635 OTHER 11-10-2013 [place] [facility] 39670 CONTUSION 10-29-2013 ALFARIS MOH OF BACK E8888 OTHER FALL 10-29-2013 [facility]IS [facility] E8889 UNSPECIFIED 10-29-2013 [facility] 34887 UNSPEC 09-20-2013 [facility] KAYA W/O MENTION OBST/GANGRE N 68775 DEHYDRATION 08-25-2013 [facility] 8471 THORACIC 08-03-2013 [facility] EMERGENCY STRAIN PHYS E8859 FALL FROM 08-03-2013 [facility] OTHER N EMERGENCY SLIPPING PHYS TRIPPING OR STUMBLING E9271 OVEREXERTIO 07-17-2013 [facility] N FROM N EMERGENCY PROLONGED PHYS STATIC POSITION 54230 VARIANTS 04-27-2013 ARNEFRAIN LEE ANN MIGRAINE NEC INTRACT MIGRAINE W/O SM 1330 SCABIES 04-05-2013 MARLI RAPP V4589 OTHER 03-21-2013 [facility] POSTSURGICA ROM L STATUS OTHER 89154 SPASM OF 02-24-2013 RIGOBERTO NANCE MUSCLE 39950 OTHER ACUTE 01-02-2013 MARLI RAPP PAIN 9654 POISONING 10-11-2012 MCKEMIE JR BY AROMATIC JUAN ANTONIO ANALGESICS NEC E8490 PLACE OF 10-11-2012 MCKEMIE JR OCCURRENCE, JUAN ANTONIO HOME E8504 ACCIDENTAL 10-11-2012 MCKEMIE JR POISONING JUAN ANTONIO BY AROMATIC ANALGESICS NEC 77465 [facility] COMP 08-22-2012 VILLAR DUE OT CELESTINE IMPLANT&INT ERNAL DEVICE NEC 49307 INF&INFLAM 08-22-2012 [facility] INTRL PROSTH DEVC IMPL&GFT 19060 OT COMPS 08-22-2012 MORRISON JUAN ANTONIO DUE OT INTRL PROSTH DEVICE IMPL&GFT V8801 ACQUIRED 08-22-2012 [facility] BOTH CERVIX AND UTERUS 6822 CELLULITIS 07-23-2012 [facility] AND ABSCESS [facility]OS[facility] OF TRUNK INC 22412 DISRUPTION 07-23-2012 [facility] OF EXTERNAL JAM OPERATION SURGICAL WOUND 17628 OTHER 07-23-2012 [facility] POSTOPERATI MEM [facility]OSP VE INC INFECTION NEC V5831 ENCOUNTER 07-12-2012 [facility] CHANGE/MAKAYLA JAM ANGELA SURGICAL WOUND DRESSING 7804 DIZZINESS 06-30-2012 [facility] AND [facility] GIDDINESS INC 88408 NAUSEA WITH 06-30-2012 [facility] VOMITING [facility] INC 5119 UNSPECIFIED 04-10-2012 [facility] PLEURAL ROM EFFUSION 5180 PULMONARY 04-08-2012 [facility] COLLAPSE ROM 5183 PULMONARY 04-08-2012 [facility] EOSINOPHILI ROM A 5199 UNSPECIFIED 04-07-2012 [facility] DISEASE OF ROM RESPIRATORY SYSTEM V550 ATTENTION 04-07-2012 [facility] TO ROM TRACHEOSTOM Y 37139 OTHER 04-04-2012 SCHULSTAD SPECIFIED BOONE INTESTINAL OBSTRUCTION 5680 PERITONEAL 04-04-2012 LEON ISAAC ADHESIONS 24579 OTHER 04-04-2012 [facility] RESPIRATORY [facility]OS[facility] INC COMPLICATIO NS 5990 URINARY 02-08-2012 [facility] INFECTION SERVICES SITE NOT SPECIFIED 68582 REFLUX 10-31-2011 [facility] ESOPHAGITIS [facility] HOS[facility] INC 63672 UNS 10-31-2011 [facility] GASTRITIS&G [facility] HOS[facility] ASTRODUODIT INC IS W/O MENTION HEMORR 5533 DIAPHRAGMAT 10-31-2011 [facility] KAYA W/O MEM HOSP MENTION INC OBSTRUCTION /GANGREN 7291 UNSPECIFIED 10-29-2011 [facility] MYALGIA AND MYOSITIS 9779 POISONING 10-29-2011 [facility] UNSPECIFIED DRUG/MEDICI NAL SUBSTANCE V720 EXAMINATION 09-18-2011 GARCIA RA OF EYES AND VISION 3384 CHRONIC 05-18-2011 RIGOBEROT NANCE PAIN SYNDROME 47237 PAIN IN 04-05-2011 [facility] JOINT [facility] PELVIC INC REGION AND THIGH 76101 PAINFUL 04-05-2011 [facility] RESPIRATION [facility] INC 15350 UNSPECIFIED 12-15-2010 [facility] VIRAL EMERGENCY INFECTION SERVICES IN CCE & UNS SITE 02481 LEUKOCYTOSI 12-15-2010 [facility] S EMERGENCY UNSPECIFIED SERVICES 462 ACUTE 12-15-2010 [facility] PHARYNGITIS [facility] INC 43322 FEVER 12-15-2010 [facility] UNSPECIFIED [facility] INC 94494 FEVER 12-15-2010 [facility] PRESENTING EMERGENCY CONDITIONS SERVICES CLASSIFIED ELSEWHERE 7821 RASH AND 12-15-2010 [facility] OTHER EMERGENCY NONSPECIFIC SERVICES SKIN ERUPTION 4619 ACUTE 12-14-2010 RIGOBERTO NANCE SINUSITIS, UNSPECIFIED 6929 CONTACT 12-14-2010 RIGOBERTO NANCE DERMATITIS& OTHER ECZEMA DUE UNSPEC CAUSE 5110 PLEURISY 11-11-2010 [facility] WITHOUT EMERGENCY MENTION SERVICES EFFUS/CURRE NT TB 7955 NONSPECIFIC 11-08-2010 [facility] TO TEST FOR INC TUBERCULOSI S 35407 ABDOMINAL 10-12-2010 [place] PA[facility] RIGHT MEDICAL UPPER IMAGING ASS QUADRANT V0481 NEED 04-14-2010 [facility] VACCINATION &INOCULATIO N FLU 7243 SCIATICA 02-07-2010 [facility] 4660 ACUTE 11-08-2009 RIGOBERTO LEE ANN BRONCHITIS 8472 LUMBAR 10-13-2009 [facility] SPRAIN AND EMERGENCY STRAIN SERVICES 10086 UNSPECIFIED 08-25-2009 KERMIT FRANKLIN DISEASE 9243 CONTUSION 08-11-2009 RIGOBERTO OF TOE MAIRA Bernal 63119 CONTUSION 06-15-2009 [facility] FOOT EMERGENCY SERVICES ASSOCIATES E9505 ELDER&SLF-INF 03-13-2009 [facility] POISN AMBULANCE UNS SERVICE RX/MEDICINA L SBSTNC 7231 CERVICALGIA 02-14-2009 [facility]OS[facility] INC 7241 PAIN IN 02-14-2009 [facility] SPINE INC V571 OTHER 02-14-2009 [facility] THERAPY INC 7213 LUMBOSACRAL 01-17-2009 PHYSICIANS SERVICES SPONDYLOSIS PSC WITHOUT MYELOPATHY 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 4871 INFLUENZA 12-30-2008 RIGOBERTO WITH OTHER MAIRA Gabe RESPIRATORY MANIFESTATI ONS 5569 UNSPECIFIED 12-07-2008 RIGOBERTO ULCERATIVE MAIRA Bernal COLITIS 3829 UNSPECIFIED 09-25-2008 RIGOBERTO OTITIS MAIRA Bernal MEDIA 7244 THORACIC/SIA 09-03-2008 SIENNA MBOSACRAL KP NEURITIS/RA DICULITIS UNSPEC 7820 DISTURBANCE 09-03-2008 SIENNA OF SKIN KP SENSATION 2449 UNSPECIFIED 08-31-2008 PSYCHIAT[facility]IC HOSP HYPOTHYROID INC ISM 44279 DIAB W/O 08-31-2008 [facility] COMP TYPE [facility] II/UNS NOT INC STATED UNCNTRL 3569 UNSPEC 08-31-2008 [facility] HEREDIT&IDI [facility] OPATHIC INC PERIPHERAL NEUROPATHY 4358 OTHER 08-31-2008 [facility] SPECIFIED [facility]OS[facility] TRANSIENT INC CEREBRAL ISCHEMIAS 4359 UNSPECIFIED 08-31-2008 [facility] TRANSIENT PHYSICIANS CEREBRAL GROUP ISCHEMIA 7802 SYNCOPE AND 08-27-2008 SIENNA, COLLAPSE KP 4928 OTHER 08-25-2008 [place] [facility] 23371 DIVERTICULI 07-22-2008 BOOM FRANKLIN OF MAIRA Bernal COLON 40638 SCOLIOSIS , 06-22-2008 [facility] IDIOPATHIC [facility] INC 94555 OTHER 06-16-2008 [facility] PAIN SERVICES ASSOCIATES 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 V5882 ENCOUNTER 06-03-2008 [facility] [place] FITTING&ADJ RADIOLOGY NON-VASCULA R CATHETER NEC 5609 UNSPECIFIED 06-02-2008 [facility] INTESTINAL N EMERGENCY PHYS INC OBSTRUCTION 1120 CANDIDIASIS 05-26-2008 RIGOBERTO OF MOUTH MAIRA Bernal 13725 ABDOMINAL 05-22-2008 [place] PAIN, MEDICAL EPIGASTRIC IMAGING ASSOCIATES 85036 UNSPECIFIED 04-28-2008 WOMEN'S RETENTION [facility] 5968 OTHER 04-27-2008 [facility] [place] SPECIFIED RADIOLOGY DISORDERS OF BLADDER 66348 OTHER 04-27-2008 [facility] SPECIFIED N EMERGENCY RETENTION PHYS INC OF URINE 70111 LOSS OF 01-13-2008 [place] [facility] 76128 ABDOMINAL 01-08-2008 [facility], AMBULANCE PERIUMBILIC SERVICE 5601 PARALYTIC 11-02-2007 [place] [facility] 7011 ACQUIRED 09-19-2007 PAWSAT, KERATODERMA GUIDO D 7030 INGROWING 09-19-2007 PAWSAT, NAIL GUDIO D 96919 ENTHESOPATH 08-19-2007 Isabela FRANKLIN OF MAIRA Bernal UNSPECIFIED SITE 8470 NECK SPRAIN 04-22-2007 [facility] PROF SERV 9221 CONTUSION 04-22-2007 [place] OF CHEST MEDICAL WALL IMAGING ASSOCIATES E9600 [...] 10 11 10 5 00 RI Ac UT 46 -2 -1 .0 00 TE ti [...] -A 2 18 MA CE CY TA WY NO PH EN 5- 32 5 DI [...] PH ZA 61 17 17 78 AR UT 5 23 MA IN CY E 10 [...] 86 1- 8- 00 06 S ve UT 23 20 20 51 PH AM 30 [...] 24 0- 8- 00 06 ER ve UT 44 20 20 33 ED 00 17 [...] 33 ZA 11 17 17 64 PH UT 0 20 AR IN MA E CY [...] 06 06 14 7 00 WA Ac UT 17 -0 -3 .0 00 L- ti OF 25 6- 0- 00 07 MA ve LO 31 20 20 77 RT XA 26 17 17 71 CI 0 07 PH N AR HC MA L CY 50 0 #1 MG 0- 19 TA 61 B UT 65 05 06 20 7 00 DE [...] 86 0- 3- 00 06 S ve UT 23 20 20 51 PH AM 30 [...] 70 3- 6- 00 06 ER ve UT 82 20 20 32 AM 41 17 [...] MG #1 TA 44 BL 10 ET UT 00 03 04 18 9 00 KR [...] 70 7- 1- 00 06 ER ve UT 82 20 20 14 AM 31 17 [...] 70 3- 7- 00 06 ER ve UT 82 20 20 29 AM 31 17 17 33 PH 2 96 AR HB MA R CY 20 #1 MG 44 10 TA BL ET UT 65 12 01 20 7 00 DE [...] 80 8- 9- 00 06 ER ve UT 00 20 20 57 AM 90 16 [...] N ZA 93 14 14 D II UT 2 PH I IN AR WI E [...] 11 D RI TA 1 PH CH WY AR AR N- MA D CA CY W FF 03 50 93 -3 8 25 # -4 03 0 93 UT 00 10 10 5 15 3 RI [...] 11 D RI TA 1 PH CH WY AR AR N- MA D CA CY W FF 03 50 93 -3 8 25 # -4 03 0 93 UT 00 10 10 5 15 3 RI [...] 11 D RI E 9 PH CH UT AR AR OP MA D CY W [...] 34 5- 6- 00 20 N ve UT 59 20 20 AI BA ED 31 [...] 11 D RI TA 1 PH CH WY AR AR N- MA D CA CY W FF 03 50 93 -3 8 25 # -4 03 0 93 CI 65 08 08 20 10 RI 89 WE Ac UT 86 -0 -0 .0 TE 38 HR [...] 93 BL 8 ET # 03 93 UT 00 08 08 13 11 RI 89 WE Ac ED 59 -0 -0 .0 TE 38 HR ti NI 15 4- 5- 00 30 MA ve SO 44 20 20 AI N NE 30 11 11 D II 1 PH I 20 AR WI MA LL MG CY IA M TA 03 E BL 93 ET 8 # 03 93 UT 00 08 08 15 3 RI 89 [...] 11 D RI TA 1 PH CH WY AR AR N- MA D CA CY [...] 11 D RI TA 1 PH CH WY AR AR N- MA D CA CY [...] 93 BL 8 ET # 03 93 UT 00 03 03 2 40 6 RI [...] 93 BL 8 ET # 03 93 UT 00 11 01 2 40 6 RI [...] 93 UL 8 E # 03 93 UT 00 11 01 2 40 6 RI [...] 10 D RI TA 1 PH CH WY AR AR N- MA D CA CY W FF 03 50 93 -3 8 25 # -4 03 0 93 BU 00 09 11 5 60 15 RI 85 AR Ac TA 14 -2 -2 .0 TE 19 NO ti LB 31 8- 9- 00 04 LD ve -A 78 20 20 AI CE 70 10 10 D RI TA 1 PH CH WY AR AR N- MA D CA CY [...] 10 8 -3 # 25 03 93 UT 00 11 11 2 40 6 RI [...] 10 D RI TA 1 PH CH WY AR AR N- MA D CA CY [...] 10 D RI TA 1 PH CH WY AR AR N- MA D CA CY [...] 34 1- 1- 00 00 LD ve UT 59 20 20 AI ED 31 10 [...] 93 BL 8 ET # 03 93 UT 00 08 08 1 18 6 RI [...] 93 BL 8 ET # 03 93 UT 00 06 07 1 40 6 RI [...] 30 7- 7- 00 34 LD ve WY 31 20 20 AI DE 10 10 [...] 03 ET 93 8 # 03 93 UT 00 06 06 1 40 6 RI [...] 10 D RI TA 1 PH CH WY AR AR N- MA D CA CY [...] 93 BL 8 ET # 03 93 UT 00 04 04 30 7 RI 83 [...] 34 3- 3- 00 71 LD ve UT 59 20 20 AI ED 31 10 [...] 03 E 93 8 # 03 93 UT 00 04 04 10 2 RI 83 [...] 10 D RI TA 1 PH CH WY AR AR N- MA D CA CY [...] 3 60 30 CL 20 AR Ac UT 18 -0 -0 .0 IN 58 NO [...] 11 03 2 90 30 CL 20 WY Ac ZA 37 -0 -0 .0 IN [...] 11 02 02 90 30 CL 20 WY Ac AM 37 -0 -2 .0 IN [...] 01 60 30 CL 20 AR Ac UT 18 -0 -1 .0 IN 58 NO [...] 10 PH RI TA 8 AR CH WY MA AR N- CY D CA W FF 50 -3 25 -4 0 TR 00 11 12 01 90 30 CL 20 WY Ac AM 37 -0 -3 .0 IN 45 CK ti AD 84 9- 1- 00 IC 80 ve OL 15 20 20 GR 10 09 09 PH EG HC 5 AR OR L MA Y 50 CY E MG TA BL ET TI 00 11 12 01 90 30 CL 20 WY Ac ZA 18 -0 -1 .0 IN 43 CK ti NI 54 9- 7- 00 IC 90 ve DI 40 20 20 GR NE 05 09 09 PH EG 1 AR OR HC MA Y L CY E 4 MG TA BL ET LI 63 11 12 01 90 30 CL 20 WY Ac DO 48 -0 -1 .0 IN [...] 09 PH RI TA 8 AR CH WY MA AR N- CY D CA W FF 50 -3 25 -4 0 BU 00 12 12 00 60 30 CL 20 AR Ac UT 18 -0 -1 .0 IN 58 NO ti OP 50 2- 7- 00 IC 96 LD ve IO 41 20 20 N 56 09 09 PH RI HC 0 AR CH L MA AR SR CY D W 15 0 MG TA BL ET LI 63 11 11 00 90 30 CL 20 WY Ac DO 48 -0 -1 .0 IN 43 CK ti DE 10 9- 9- 00 IC 91 ve RM 68 20 20 GR 70 09 09 PH EG 5% 6 AR OR MA Y PA CY E TC H TI 55 11 11 00 90 30 CL 20 WY Ac ZA 11 -0 -1 .0 IN [...] 11 11 00 90 30 CL 20 WY Ac AM 37 -0 -1 .0 IN [...] 09 PH RI TA 1 AR CH WY MA AR N- CY D CA W [...] 00 10 5 CL 20 AR Ac WY 00 -2 -0 .0 IN 32 NO [...] 20 20 AI 82 09 09 D WY 8 PH CH AR AE M L #3 S 93 8 BU 00 05 11 02 60 30 CL 19 AR Ac UT 18 -0 -0 .0 IN 76 NO ti OP 50 5- 5- 00 IC 52 LD ve IO 41 20 20 N 56 09 09 PH RI HC 0 AR CH L MA AR SR CY D W 15 0 MG TA BL ET UT 68 09 10 01 40 10 CL [...] 09 PH RI TA 1 AR CH WY MA AR N- CY D CA W [...] 01 60 30 CL 19 AR Ac UT 18 -0 -0 .0 IN 76 NO [...] AR CH MA AR CY D W UT 68 09 09 00 40 10 CL 20 AR Ac OM 38 -0 -1 .0 IN 00 NO ti ET 20 3- 0- 00 IC 85 LD ve MAIN 04 20 20 ZI 10 09 09 PH RI NE 1 AR CH MA AR 25 CY D W MG TA BL ET BU 00 05 09 00 60 30 CL 19 AR Ac UT 18 -0 -1 .0 IN 76 NO [...] 35 20 20 70 09 09 PH WY 5 AR CH MA AE CY L [...] 8- 0- 00 IC 01 LD ve UT 00 20 20 ED 10 09 09 PH RI NI 3 AR CH SO MA AR LO CY D NE W 4 MG DO SE PK UT 68 07 07 00 40 10 CL [...] 01 60 30 EA 12 AR Ac UT 18 -0 -[address] 62 NO [...] 20 ZA 70 09 09 PH RI UT 6 AR CH IN MA AR E [...] 8- 4- 00 SI 58 EY ve UT 02 20 20 DE ED 20 09 09 WY NI 7 PH CH SO AR AE LO MA L NE CY S 4 OF MG CY NT DO HI SE AN PK A BU 00 05 05 00 60 30 EA 12 AR Ac UT 18 -0 -[address] 62 NO [...] DE UT 50 09 09 1 PH WY AR CH MA AE CY L OF CY NT HI AN A HY 00 05 05 00 16 [address] 55 -1 -[address] 74 ES ti OX 50 4- 1- 00 SI 36 TN ve YZ 32 20 20 DE UT IN 30 09 09 E 4 PH WY PA AR CH M MA AE 25 [...] CY OF CY NT HI AN A UT 00 04 05 00 60 15 EA [...] #3 W 93 TA 8 BL ET UT 00 03 04 01 40 10 RI [...] #3 W TA 93 BL 8 ET UT 00 02 03 00 40 10 RI [...] 09 PH RI TA 1 AR CH WY MA AR N- CY D CA W [...] 08 08 RI TA 5 PH CH WY AR AR N- MA D CA CY [...] W OF CY NT HI AN A UT 00 10 11 00 40 10 EA [...] ve TA 40 20 20 DE AN WY 71 08 08 TO N 2 PH [...] 00 60 30 EA 10 AR Ac UT 09 -2 -[address] 01 NO [...] 7- 3- 00 SI 49 Av ve UT 02 20 20 DE ai ED 20 [...] 20 20 AI 80 08 08 D WY HC 1 PH CH L AR AE 50 M L #3 S MG 93 8 TA BL ET CI 00 10 10 00 14 7 RI 75 GA Ac UT 17 -0 -2 .0 TE 25 IN ti OF 25 4 42 EY ve LO 31 20 20 AI XA 26 08 08 D WY CI 0 PH CH N AR AE [...] NT OF CY NT HI AN A UT 10 07 10 02 60 15 EA [...] 08 08 la TA 5 PH bl WY AR e N- MA CA CY FF [...] CY OF CY NT HI AN A UT 00 07 09 01 60 15 EA 98 No Ac OM 78 -1 -[address] 75 t ti ET 11 7- 1- 00 SI 92 Av ve MAIN 83 20 20 DE ai ZI 01 08 08 la NE 0 PH bl AR e 25 MA CY MG OF TA CY BL NT ET HI AN A UT 00 09 09 00 70 17 EA [...] CY OF CY NT HI AN A UT 00 07 08 00 60 15 EA [...] ve TA 40 20 20 DE ai WY 71 08 08 la N 2 PH [...] CY OF CY NT HI AN A UT 00 02 07 04 60 15 EA [...] 0- 3- 00 SI 32 Av ve UT 02 20 20 DE ai ED 20 [...] 20 AI IN 70 08 08 D WY 1 PH CH 50 AR AE 0 [...] CY OF CY NT HI AN A UT 00 02 06 03 60 15 EA [...] ve TA 40 20 20 DE ai WY 71 08 08 la N 2 PH bl B1 AR e 2 MA 1, CY 00 0 OF MC CY G NT TA HI B AN A UT 00 02 05 02 60 15 EA [...] ve TA 40 20 20 DE ai WY 71 08 08 la N 2 PH [...] 34 4- 4- 00 86 Av ve UT 59 20 20 AI ai ED 31 [...] 00 14 7 RI 72 No Ac UT 17 -1 -2 .0 TE 89 t [...] CY OF CY NT HI AN A UT 00 02 04 01 60 15 EA [...] 08 08 la TA 8 PH bl WY AR e N- MA CA CY FF [...] #3 #3 93 8 TA BL ET UT 00 02 03 00 60 15 EA [...] ve TA 40 20 20 DE ai WY 71 08 08 la N 2 PH bl B1 AR e 2 MA 1, CY 00 0 OF MC CY G NT TA HI B AN A ME 00 02 03 00 21 6 EA 96 No Ac TH 78 -1 -[address] 85 t ti YL 15 8- 6- 00 SI 54 Av ve UT 02 20 20 DE ai ED 20 [...] ve TA 40 20 20 DE ai WY 71 08 08 la N 2 PH [...] 4572 RADHA GARCIA OTHER 3 [facility] CECECTOMY INC INC OBSERVATI 21543 WENDY NGUYEN ON CARE 9 , CALEB ELLIS DISCHARGE MANAGEMEN T INITIAL 23631 WENDY ARIASSTBUD OBSERVATI 9 , CALEB ELLIS ON CARE/DAY 50 MINUTES RADEX ABD 34659 [facility] ANALI KOHLER COMPL 9 RADIOLOGY J AQT ABD W/S/E/D V[address] [address] [place] [address] [facility] ANALI SHELTON, ABDOMEN 9 RADIOLOGY JUDAH L W/O CONTRAST MATERIAL CT PELVIS 57898 [facility] ANALI [place], W/O 9 [place] [address] RADHA RAD[facility] INFUSION 9 [facility] THERAPY/P INC INC ROPHYLAXI S /DX 1ST TO 1 HR COMPREHEN 51920 RADHA GARCIA SIVE 9 [facility] METABOLIC INC INC PANEL URNLS DIP 35041 RADHA GARCIA 9 [facility] STICK/TAB INC INC LET REAGENT AUTO MICROSCOP Y BLOOD 54170 RADHA GARCIA COUNT 9 [facility] COMPLETE INC INC AUTO&AUTO DIFRNTL WBC RADEX [address] [facility] HARLEEN, ABDOMEN 9 [facility] P COMPL IMAGING W/DCBTS&/ [place] [address] [facility], HEAD/BRAI 9 [facility] P N W/O IMAGING CONTRAST ASSOCIATE MATERIAL S 3D [address] [place] HARLEEN, RENDERING 9 [facility] [place] P W/INTERP IMAGING & ASSOCIATE POSTPROCE S SS SUPERVISI ON CT PELVIS [address] [facility] [place] JOSE F, 9 RADIOLOGY J W/[place] [address] [facility] [place] JOSE F, ABDOMEN 9 RADIOLOGY J W/[place] [address] [facility] [place] CESAR, ABDOMEN 9 RADIOLOGY LUIS G W/CONTRAS T MATERIAL CT PELVIS 15567 [facility] [place] CESAR, 9 RADIOLOGY LUIS G W/CONTRAS T MATERIAL CLOSED 4525 RADHA GARCIA [ENDOSCOP 8 [facility] IC] INC INC BIOPSY OF LARGE INTESTINE Encounters Encounter Start End Date Code Location Performer Type Date [facility] - 7 7 [facility] OUTPATIEN [facility] RADHA - 7 7 [facility] RADHA [facility] 7 7 [facility] - 7 7 [facility]IEN [facility] [place] - 7 7 [facility] - [address] [facility] - 7 7 - 7 [address] [facility] - OTHER 6 6 [facility] RADHA - 6 6 [facility] OUTPATIEN [facility] RADHA - 6 6 [facility]PATI[facility] RADHA - 6 6 [facility]PATI[facility] RADHA - 6 6 [facility]PATI[facility] RADHA - 6 6 [facility]PATI[facility] RADHA - 6 6 [facility]PATI[facility] RADHA - 6 6 [facility]PATI[facility] RADHA - 6 6 [facility]PATI[facility] RADHA - 6 6 [facility]PATIEN [facility] RADHA - 6 6 [facility]PATI[facility] RADHA - 6 6 [facility]PATI[facility] RADHA - 6 6 [facility]PATI[facility] RADHA - 6 6 [facility]PATIEN [facility] RADHA - 5 5 [facility] OUTPATIEN [facility] RADHA - 5 5 [facility]PATIEN [facility] RADHA - 5 5 [facility]PATIEN [facility] RADHA - 5 5 [facility]PATI[facility] RADHA - 5 5 [facility]PATIEN [facility] RADHA - 5 5 [facility]PATI[facility] RADHA - 5 5 [facility]PATIEN [facility] RADHA - 5 5 [facility]PATI[facility] RADHA - 5 5 [facility]PATIEN [facility] RADHA - 5 5 [facility]PATIEN [facility] RADHA - 4 4 [facility] OUTPATIEN [facility] RADHA - 4 4 [facility] OUTPATIEN [facility] RADHA [facility] 4 4 [facility]EN [facility] - 4 4 [facility] RADHA - 4 4 [facility] OUTPATIEN [facility] RADHA [facility] 4 4 [facility] OUTPATIEN [facility] - 3 3 [facility] RADHA - 3 3 [facility] OUTPATIEN [facility] RADHA - 3 3 [facility]PATIEN [facility] RADHA - 3 3 [facility]PATIEN [facility] RADHA - 3 3 [facility]PATIEN [facility] RADHA - 3 3 [facility] INPATIENT [facility] RADHA - 3 3 [facility] OUTPATIEN [facility] RADHA - 3 3 [facility] OUTPATIEN [facility] RADHA - 2 2 [facility]PATIEN [facility] RADHA - 2 2 [facility]PATIEN [facility] RADHA - 2 2 [facility]PATIEN [facility] RADHA - 2 2 [facility]PATI[facility] RADHA - 2 2 [facility]PATI[facility] RADHA - 2 2 [facility]PATI[facility] RADHA - 2 2 [facility]PAT[facility] RADHA - 2 2 [facility]PATI[facility] RADHA - 2 2 [facility]PAT[facility] RADHA - 2 2 [facility]PATI[facility] RADHA - 2 2 [facility]PATI[facility] RADHA - 2 2 [facility]PATI[facility] RADHA - 2 2 [facility] RADHA - 2 2 [facility] RADHA [facility] 2 2 [facility] OUTPATIEN [facility] RADHA - 1 1 [facility]EN [facility] RADHA - 1 1 [facility]EN [facility] RADHA - 1 1 [facility] RADHA [facility] 1 1 [facility] RADHA - 1 1 [facility] RADHA [facility] 1 1 [facility] RADHA - 1 1 [facility]IEN [facility] RADHA - 1 1 [facility] RADHA - 1 1 [facility] OUTPATIEN INC [facility] RADHA [facility] 1 1 [facility] OUTPATIEN [...] - 0 0 [facility]PATI[facility] INC [facility] RADHA - 9 9 [facility] INC [facility] RADHA [facility] 9 9 [facility] RAD[facility] - 9 9 [facility] RAD[facility] - 9 9 [facility] RADHA - 9 9 [facility] - 9 9 [facility] OUTPATIEN [facility] - 9 9 [facility] RADHA - 9 9 [facility] RADHA - 9 9 [facility] OUTPATIEN INC [facility] RADHA [facility] 9 9 [facility] RADHA - 9 9 [facility] RAD[facility] - 9 9 [facility] RADHA - 9 9 [facility] OUTPAT[facility]EN [facility] [place] - 9 9 [facility] EMERGENCY 46707 MARLEN [facility], DEPT 9 9 CONRAD [place] VISIT EMERGENCY HIGH PHYS INC SEVERITY& THREAT FUNCJ OFFICE 97553 RIGOBERTO FRANKLIN OUTPATIEN 9 9 MAIRA Bernal T VISIT 15 MINUTES HOSPITAL RADHA - 9 9 [facility] OUTPATIEN INC T EMERGENCY 50578 RADHA 9 9 [facility] DEPARTMEN INC T VISIT LOW/MODER SEVERITY EMERGENCY 38262 LIAM JALLOH 9 9 EMERGENCY [facility] DEPARTMEN SERVICES T VISIT HIGH/URGE ASSOCIATE NT S SEVERITY OFFICE 92205 RIGOBERTO FRANKLIN OUTPATIEN 9 9 MAIRA Bernal T VISIT 15 MINUTES EMERGENCY 25523 LIAM [place] DEPT 9 9 EMERGENCY JUDAH VISIT SERVICES HIGH SEVERITY& ASSOCIATE THREAT S FUN EMERGENCY 43547 RADHA 9 9 [facility] DEPARTMEN INC T VISIT HIGH/URGE NT SEVERITY HOSPITAL RADHA - 9 9 [facility] OUTPATIEN INC T OFFICE 02992 RIGOBERTO FRANKLIN OUTPATIEN 9 9 MAIAR Bernal T VISIT 15 MINUTES EMERGENCY 86108 RADHA 9 9 [facility] DEPARTMEN INC T VISIT LOW/MODER SEVERITY HOSPITAL RADHA - 9 9 [facility] OUTPATIEN INC T EMERGENCY 65773 JOSE JALLOH, 9 9 [facility] SARAH S DEPARTMEN CORPORATI T VISIT ON HIGH/URGE NT SEVERITY OFFICE 20128 [facility] DELC[facility], CONSULTAT 9 9 [facility] NEW/ESTAB PATIENT RIKKI 60 MIN [facility] EMERGENCY 97869 MARLEN GERMAN DEPT 9 9 [facility] [place] VISIT EMERGENCY HIGH PHYS INC SEVERITY& THREAT FUNCJ OFFICE 11520 RIGOBERTO FRANKLIN OUTPATIEN 9 9 MAIRA Bernal T VISIT 15 MINUTES EMERGENCY 48787 RADHA 9 9 [facility] DEPARTMEN INC T VISIT LIMITED/M INOR PROB HOSPITAL RADHA - 9 9 [facility] OUTPATIEN INC T EMERGENCY 57362 JOSE JALLOH, 9 9 [facility] VISIT ON LOW/MODER SEVERITY OFFICE 17008 RIGOBERTO FRANKLIN OUTPATIEN 9 9 MARIA Bernal T VISIT 15 MINUTES HOSPITAL RADHA - 9 9 [facility] OUTPATIEN INC T EMERGENCY 04503 JOSE JALLOH, 9 9 [facility] T VISIT ON MODERATE SEVERITY EMERGENCY 01510 RADHA 9 9 [facility] DEPARTMEN INC T VISIT LOW/MODER SEVERITY OFFICE 39864 RIGOBERTO FRANKLIN OUTPATIEN 9 9 MAIRA Bernal T VISIT 15 MINUTES EMERGENCY 07112 MARLEN VENTURA DEPT 9 9 CONRAD Wolfe VISIT EMERGENCY HIGH PHYS INC SEVERITY& THREAT FUNCJ EMERGENCY 56867 RADHA 9 9 [facility] DEPARTMEN INC T VISIT LIMITED/M [facility]OR [facility]OB [facility]PITAL RADHA - 9 9 [facility] OUTPATIEN INC T EMERGENCY 74593 JOSE JALLOH, 9 9 [facility] SARAH S DEPARTMEN CORPORATI T VISIT ON MODERATE SEVERITY HOSPITAL RADHA - 8 8 [facility] OUTPATIEN INC T HOSPITAL RADHA - 8 8 [facility]EN INC T [facility]OSP[facility] RADHA - 8 8 [facility] OUTPATIEN INC T HOSPITAL RADHA - 8 8 [facility] OUTPATIEN INC T [facility]PITAL [facility] - 8 8 [facility] T HOSPITAL RADHA - 8 [...] T [facility]OSPITAL RADHA - 8 8 [facility] 8 8 [facility] - 8 8 [facility]
--- OUTSIDE RECORDS SUMMARY | 2017-02-13 21:20 | External Medical Summary Rpt | CCD ---
Demographics Preferred Language Yi Marital Status Unknown Hoahaoism Affiliation Unknown Race Unknown Ethnic Group Unknown Author Author , SINTIA PATRICIO Address Unknown Phone Immunization No patient found.
--- OUTSIDE RECORDS SUMMARY | 2017-02-13 21:20 | External Medical Summary Rpt | CCD ---
Demographics Preferred Language Irish Marital Status Unknown Adventist Affiliation Unknown Race Unknown Ethnic Group Unknown Author Author , SINTIA PATRICIO Address Unknown Phone Immunization No patient found.
[2017-02-13] MEDS ORDERED: PREDNISONE 20MG20 MG PO (21:33)
[2017-02-13] MEDS ORDERED: CIPRO 500MG TA500 MG PO (21:33)
[2017-02-13] MEDS ORDERED: TESSALON PERLE100 MG PO (21:33)
[2017-02-13 21:41] VITALS: BP 122/74
--- NOTE | 2017-02-14 04:57 | RADIOLOGY REPORT PS360 ---
CHEST(2 VIEWS-NOT PORTABLE) HISTORY: cough ORDERING PHYSICIAN: Michael Escudero MD PATIENT AGE: 46 years COMPARISON: 12/07/2016 FINDINGS: The cardiomediastinal silhouette and pulmonary vascularity are within normal limits. COPD. No lobar consolidation or collapse.. Mild exaggeration of thoracic kyphosis with pectus carinatum. IMPRESSION: COPD, no change with no acute finding
== END 2017-02-13 21:44 | disposition home or self-care (01) ==
LOC: ER 19:58
DX: J40 Bronchitis, not specified as acute or chronic (principal); J44.9 Chronic obstructive pulmonary disease, unspecified